=== PATIENT | male | born 1970 | race Caucasian/White ===

== ENCOUNTER 2018-01-19 06:56 | Emergency (ER) | payer BC ==
[2018-01-19] MEDS ORDERED: DEXAMETHASONE 10 MG/ML VIAL ONE (07:26)
[2018-01-19] MEDS ORDERED: DIAZEPAM 5 MG TABLET ONE (07:27)
[2018-01-19] MEDS ORDERED: HYDROCODONE/APAP 10/325 TAB ONE (07:27)
--- NOTE | 2018-01-19 07:55 | EDPHYS ---
Physician Documentation [facility] Name: Juan Luis Duvall Age: 47 yrs Sex: Male : 1970 Arrival Date: 01/19/2018 Time: 06:56 Bed 13 Private MD: ED Physician Edwin Cantrell HPI: 01/19 07:22 This 47 yrs old Male presents to ER via Ambulatory with complaints of Back jmm Spasms. 07:22 Onset: The symptoms/episode began/occurred acutely, last night. Associated signs and jmm symptoms: Pertinent negatives: chest pain, diarrhea, dysuria, shortness of breath. 07:22 Associated signs and symptoms: Pertinent negatives: abdominal pain, chest pain, jmm dysuria, fever, hematuria, incontinence, nausea, numbness, tingling, urinary retention. This is a 47 year old male with no chronic medical conditions that presents to the ED with right sided back pain beginning last night. Patient states he will occasionally have back spasms on the same side of his back. States he took Robaxin last night with no relief. . Historical: - Allergies: 07:15 No Known Allergies; jl7 - Home Meds: 07:15 None [Active]; jl7 - PMHx: 07:15 None; jl7 - PSHx: 07:15 None; jl7 - Immunization history:: Adult Immunizations up to date. - Social history:: Smoking status: Patient uses tobacco products, smokes one pack cigarettes per day. - Ebola Screening: : No symptoms or risks identified at this time. ROS: 07:22 Respiratory: Negative for shortness of breath, cough, wheezing, and pleuritic chest jmm pain, Abdomen/GI: Negative for abdominal pain, nausea, vomiting, diarrhea, and constipation. 07:22 Constitutional: Negative for fever. 07:22 Cardiovascular: Negative for chest pain. 07:22 Back: Positive for pain at rest, pain with movement. 07:22 Neuro: Negative for weakness. 07:22 All other systems are negative. Exam: 07:22 Head/Face: atraumatic. jmm 07:22 Constitutional: The patient appears in no acute distress, alert, awake. 07:22 Cardiovascular: Rate: normal. 07:22 Respiratory: the patient does not display signs of respiratory distress, Respirations: normal. 07:22 Abdomen/GI: Inspection: abdomen appears normal, Bowel sounds: normal, Palpation: abdomen is soft and non-tender, in all quadrants. 07:22 Back: muscle spasm noted ot the right side of the back at the mid lumbar region. 07:22 Musculoskeletal/extremity: ROM: intact in all extremities. 07:22 Musculoskeletal/extremity: extension of the great toes appreciated bilaterally. 07:22 Skin: Appearance: Color: normal in color. 07:22 Neuro: Orientation: is normal, Mentation: is normal, Memory: is normal. 07:22 Psych: Behavior/mood is pleasant, cooperative. Vital Signs: 07:15 BP 139 / 92; Pulse 69; Resp 16 S; Temp 98.3(O); Pulse Ox 95% on R/A; Weight 97.52 kg jl7 (R); Height 5 ft. 11 in. (180.34 cm) (R); Pain 10/10; 08:18 BP 144 / 98; Pulse 70; Resp 16; Pulse Ox 95% ; Pain 8/10; jl7 07:15 Body Mass Index 29.99 (97.52 kg, 180.34 cm) jl7 MDM: 07:21 Patient medically screened. [facility] 07:53 Data reviewed: vital signs, nurses notes. Counseling: I had a detailed discussion with sheryl the patient and/or guardian regarding: the historical points, exam findings, and any diagnostic results supporting the discharge/admit diagnosis, the presence of at least one elevated blood pressure reading (>120/80) during this emergency department visit, the need for outpatient follow up, to return to the emergency department if symptoms worsen or persist or if there are any questions or concerns that arise at home. Response to treatment: the patient's symptoms have mildly improved after treatment. Administered Medications: 07:35 Drug: Dryden 10 mg-325 mg 1 tabs Route: PO; jl7 08:20 Follow up: Response: No adverse reaction; Pain is decreased jl7 07:35 Drug: Valium 5 mg Route: PO; jl7 08:20 Follow up: Response: No adverse reaction; Pain is decreased jl7 07:36 Drug: Dexamethasone 10 mg Route: IM; Site: right deltoid; jl7 08:19 Follow up: Response: No adverse reaction; Pain is decreased 7 Disposition: 01/20 01:18 Co-signature as Attending Physician, Edwin Cantrell MD I agree with the assessment and tw4 plan of care. Disposition: 01/19/18 07:54 Discharged to Home. Impression: Muscle spasm of back. - Condition is Stable. - Discharge Instructions: Muscle Cramps and Spasms. - Prescriptions for Ibuprofen 800 mg Oral Tablet - take 1 tablet by ORAL route every 8 hours As needed take with food; 30 tablet. Ultram 50 mg Oral Tablet - take 1 tablet by ORAL route every 6 hours As needed; 12 tablet. orphenadrine citrate 100 mg Oral Tablet Sustained Release - take 1 tablet by ORAL route 2 times per day As needed; 20 tablet. - Medication Reconciliation Form, Thank You Letter, Antibiotic Education, Prescription Opioid Use form. - Follow up: Private Physician; When: 2 - 3 days; Reason: Continuance of care. Signatures: Dean Butt PA PA jmm Leal, Jahala, RN RN jl7 Edwin Cantrell MD MD tw4 Corrections: (The following items were deleted from the chart) 01/19 08:22 07:54 01/19/2018 07:54 Discharged to Home. Impression: Muscle spasm of back. Condition jl7 is Stable. Forms are Medication Reconciliation Form, Thank You Letter, Antibiotic Education, Prescription Opioid Use. Follow up: Private Physician; When: 2 - 3 days; Reason: Continuance of care. sheryl
--- NOTE | 2018-01-19 07:55 | ER ---
Nurse's Notes [facility] Name: Juan Luis Duvall Age: 47 yrs Sex: Male : 1970 Arrival Date: 01/19/2018 Time: 06:56 Bed 13 Private MD: Diagnosis: Muscle spasm of back Presentation: 01/19 07:12 Presenting complaint: Patient states: c/o right back spasms x 1 week, worse last night. jl7 Transition of care: patient was not received from another setting of care. Onset of symptoms was January 13, 2018. Risk Assessment: Do you want to hurt yourself or someone else? Patient reports no desire to harm self or others. Initial Sepsis Screen: Does the patient meet any 2 criteria? No. Patient's initial sepsis screen is negative. Does the patient have a suspected source of infection? No. Patient's initial sepsis screen is negative. Care prior to arrival: None. 07:12 Method Of Arrival: Ambulatory jl7 07:12 Acuity: JEREMY 4 jl7 Triage Assessment: 07:15 General: Appears in no apparent distress. uncomfortable, Behavior is calm, cooperative, jl7 appropriate for age. Pain: Complains of pain in left low back Pain radiates to left mid back Pain currently is 10 out of 10 on a pain scale. Quality of pain is described as "Spasms" Pain began 1 week ago Is continuous. EENT: No signs and/or symptoms were reported regarding the EENT system. Neuro: Level of Consciousness is awake, alert, obeys commands, Oriented to person, place, time, situation. Cardiovascular: Patient's skin is warm and dry. Respiratory: Airway is patent Respiratory effort is even, unlabored, Respiratory pattern is regular, symmetrical. GI: No signs and/or symptoms were reported involving the gastrointestinal system. : No signs and/or symptoms were reported regarding the genitourinary system. Derm: Skin is pink, warm \\T\\ dry. Musculoskeletal: Reports pain in right low back up to right mid back. Historical: - Allergies: 07:15 No Known Allergies; jl7 - Home Meds: 07:15 None [Active]; jl7 - PMHx: 07:15 None; jl7 - PSHx: 07:15 None; jl7 - Immunization history:: Adult Immunizations up to date. - Social history:: Smoking status: Patient uses tobacco products, smokes one pack cigarettes per day. - Ebola Screening: : No symptoms or risks identified at this time. Screenin:20 Abuse screen: Denies threats or abuse. Denies injuries from another. Nutritional jl7 screening: No deficits noted. Tuberculosis screening: No symptoms or risk factors identified. Fall Risk Gait- Impaired (20 pts.). Total Clifford Fall Scale indicates No Risk (0-24 pts). Assessment: 07:20 General: See triage assessment. jl7 Vital Signs: 07:15 BP 139 / 92; Pulse 69; Resp 16 S; Temp 98.3(O); Pulse Ox 95% on R/A; Weight 97.52 kg jl7 (R); Height 5 ft. 11 in. (180.34 cm) (R); Pain 10/10; 08:18 BP 144 / 98; Pulse 70; Resp 16; Pulse Ox 95% ; Pain 8/10; jl7 07:15 Body Mass Index 29.99 (97.52 kg, 180.34 cm) jl7 ED Course: 06:56 Patient arrived in ED. ds1 07:03 Hua Steele, RN is Primary Nurse. jl7 07:04 Dean Butt PA is PHCP. jmm 07:04 Edwin Cantrell MD is Attending Physician. [facility] 07:14 Triage completed. jl7 07:15 Arm band placed on right wrist. jl7 07:20 Patient has correct armband on for positive identification. Bed in low position. Call jl7 light in reach. Side rails up X 1. Pulse ox on. NIBP on. 08:21 No provider procedures requiring assistance completed. Patient did not have IV access jl7 during this emergency room visit. Administered Medications: 07:35 Drug: [place]oni 10 mg-325 mg 1 tabs Route: PO; jl7 08:20 Follow up: Response: No adverse reaction; Pain is decreased jl7 07:35 Drug: Valium 5 mg Route: PO; jl7 08:20 Follow up: Response: No adverse reaction; Pain is decreased jl7 07:36 Drug: Dexamethasone 10 mg Route: IM; Site: right deltoid; jl7 08:19 Follow up: Response: No adverse reaction; Pain is decreased jl7 Outcome: 07:54 Discharge ordered by . jmm 08:21 Discharged to home ambulatory. jl7 08:21 Condition: stable 08:21 Discharge instructions given to patient, family, Instructed on discharge instructions, follow up and referral plans. medication usage, Demonstrated understanding of instructions, follow-up care, medications, Prescriptions given X 3. 08:22 Patient left the ED. jl7 Signatures: Dean Butt PA PA jmm Sanford, Demi ds1 Hua Steele RN RN jl7 Corrections: (The following items were deleted from the chart) 08:20 00:36 Dexamethasone 10 mg IM in right deltoid jl7 jl7
[2018-01-19 08:28] VITALS: TEMP 98.3; O2SAT 95
[2018-01-19 08:29] VITALS: BP 144/98
== END 2018-01-19 08:22 | disposition home or self-care (01) ==
LOC: ER 06:56
DX: M62.830 Muscle spasm of back (principal); F17.210 Nicotine dependence, cigarettes, uncomplicated
CPT/HCPCS: 96372; 99283; J1100

== ENCOUNTER 2023-06-08 16:24 | Emergency (ER) | payer BC, OTHER ==
--- OUTSIDE RECORDS SUMMARY | 2023-06-08 16:40 | XMS REPORT | Clinical Summary ---
:1970 Author Organization [facility] MD [facility] Address [address] [place] [address] Care Team Providers Name Role Phone Dougie Varma MD Primary Care Provider [phone] Ana María Mills MD Unavailable Christiano Baez DDS Unavailable Ranjit ELIZABETH MD, Jamari Ulloa Unavailable Lazarus Martínez MD Unavailable Flavia Hawkins MD Unavailable Odin Call MD Unavailable Denver Coleman MD Unavailable Garrett Goldberg MD Unavailable Zohreh Dejesus MD Unavailable Allergies Active Allergy Reactions Criticality Noted Date Comments Chlorhexidine Gluconate Rash Low 06/12/2022 Medications Medication Sig Dispensed Refills Start End Status Date Date dasatinib Take 1 tablet (100 30 tablet 3 05/08/20 A ctive (SpryceL) 100 mg mg) by mouth 22 tabletIndications: daily. Acute lymphoblastic leukemia not having achieved remission sodium chloride Inject 10 mL (1 60 each 6 07/17/20 Active (NS) 0.9% flush syringe) into each 22 syringe 10 lumen of central mLIndications: venous catheter central line care daily as directed. valACYclovir Take 1 tablet (500 30 tablet 5 08/14/19 Active (VALTREX) 500 mg mg) by mouth 23 tabletIndications: daily. prevent viral infection atorvastatin Take 1 tablet (10 30 tablet 3 01/31/20 Active (Lipitor) 10 mg mg) by mouth 23 tabletIndications: daily. Acute lymphoblastic leukemia not having achieved remission, Hyperlipidemia, not otherwise specified potassium chloride Take 2 capsules 60 capsule 0 02/06/20 Active (MICRO-K) 10 mEq (20 mEq) by mouth 23 CR twice daily. capsuleIndications : Acute lymphoblastic leukemia not having achieved remission fenofibrate Take 1 tablet (160 30 tablet 3 02/10/20 Active (TRIGLIDE) 160 mg mg) by mouth 23 tabletIndications: daily. Acute lymphoid leukemia dexAMETHasone Take 1 tablet (4 7 tablet 0 05/12/20 Active (DECADRON) 4 mg mg) by mouth daily 23 tabletIndications: with breakfast. Acute lymphoblastic leukemia not having achieved remission dexAMETHasone Take 1 tablet (2 7 tablet 0 05/12/20 Active (DECADRON) 2 mg mg) by mouth daily 23 tabletIndications: with breakfast. Acute lymphoblastic leukemia not having achieved remission atorvastatin Take 1 tablet (10 90 tablet 3 03/28/20 Discontinued (Lipitor) 10 mg mg) by mouth 22 022 ( Reorder) tabletIndications: daily. Acute lymphoblastic leukemia not having achieved remission valACYclovir Take 1 tablet (500 90 tablet 5 03/28/20 Discontinued (VALTREX) 500 mg mg) by mouth 22 022 (Reorder) tabletIndications: daily. prevent viral infection fenofibrate Take 1 tablet (160 30 tablet 3 03/28/20 Discontinued (TRIGLIDE) 160 mg mg) by mouth 22 022 (Reorder) tabletIndications: daily. Acute lymphoid leukemia erythromycin Administer 0.5 3.5 g 1 05/26/20 Di scontinued (ROMYCIN) 0.5% inches to both (Stop Taking at ophthalmic eyes twice daily. 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 Through suspensionIndicati Thursday06/10/22 ons: Menard chromosome-positiv e acute lymphoblastic leukemia, Acute lymphoblastic leukemia not having achieved remission sodium chloride Inject 10 mL (1 60 each 6 06/06/20 Discontinued (NS) 0.9% flush syringe) into each 22 022 (Reorder) syringe 10 lumen of central mLIndications: venous catheter central line care daily as directed. levoFLOXacin Take 1 tablet (500 30 tablet 0 06/06/20 Discontinued (Levaquin) 500 mg mg) by mouth 22 022 (Reorder) tabletIndications: daily. prevention of bacterial infections minocycline Take 1 capsule 17 capsule 0 06/14/20 Ex pired (MINOCIN) 100 mg (100 mg) by mouth 22 022 capsuleIndications every 12 (twelve) : Menard hours for 17 chromosome-positiv doses. e acute lymphoblastic leukemia levETIRAcetam Take 1 tablet (750 40 tablet 0 07/16/20 Discontinued (KEPPRA) 750 mg mg) by mouth twice 22 023 (Other ) tabletIndications: daily. Menard chromosome-positiv e acute lymphoblastic leukemia minocycline Take 1 capsule 9 capsule 0 07/16/20 Exp ired (MINOCIN) 100 mg (100 mg) by mouth 22 023 capsuleIndications every 12 (twelve) : Severe sepsis, hours for 9 doses. not otherwise specified posaconazole Take 3 tablets 90 tablet 11 07/16/20 Di scontinued (NOXAFIL) 100 mg (300 mg) by mouth 22 023 (Other ) DR daily with dinner. tabletIndications: Severe sepsis, not otherwise specified atorvastatin Take 1 tablet (10 30 tablet 3 07/17/20 Discontinued (Lipitor) 10 mg mg) by mouth 22 023 ( Reorder) tabletIndications: daily. Acute lymphoblastic leukemia not having achieved remission fenofibrate Take 1 tablet (160 30 tablet 3 07/17/20 Discontinued (TRIGLIDE) 160 mg mg) by mouth 22 023 (Reorder) tabletIndications: daily. Acute lymphoid leukemia levoFLOXacin Take 1 tablet (500 30 tablet 1 07/17/20 Discontinued (Levaquin) 500 mg mg) by mouth 22 023 (Reorder) tabletIndications: daily. prevention of bacterial infections valACYclovir Take 1 tablet (500 30 tablet 5 07/17/20 Discontinued (VALTREX) 500 mg mg) by mouth 023 (Reorder) tabletIndications: daily. prevent viral infection eltrombopag Take 1 tablet (50 60 tablet 0 07/30/19 Discontinued (Promacta) 50 mg mg) by mouth twice 023 (Other ) tabletIndications: daily. Administer Acute on an empty lymphoblastic stomach, 1 hour leukemia before or 2 hours after a meal. potassium chloride Take 1 tablet (20 10 tablet 0 08/11/19 Discontinued (Klor-Con M20) 20 mEq) by mouth 023 (Other ) mEq twice daily. tabletIndications: Acute lymphoblastic leukemia atorvastatin Take 1 tablet (10 30 tablet 3 08/14/19 Discontinued (Lipitor) 10 mg mg) by mouth ( Stop Taking at tabletIndications: daily. D ischarge) Acute lymphoblastic leukemia not having achieved remission levoFLOXacin Take 1 tablet (500 30 tablet 3 08/14/19 Discontinued (Levaquin) 500 mg mg) by mouth 023 (Other ) tabletIndications: daily. prevention of bacterial infections fenofibrate Take 1 tablet (160 30 tablet 3 08/14/19 Discontinued (TRIGLIDE) 160 mg mg) by mouth 023 (Reorder) tabletIndications: daily. Acute lymphoid leukemia ipratropium Apply 1 spray to 30 mL 0 10/06/19 05/032 D iscontinued (ATROVENT) 0.03% each nare twice (Stop Taking at nasal daily. As needed Dis charge) sprayIndications: for nasal Nasal congestion congestion ciprofloxacin HCl Administer 1 drop 5 mL 0 10/06/19 05/0 3/2 Discontinued (Ciloxan) 0.3% to both eyes every (Stop Taking at ophthalmic 2 (two) hours. Disc harge) solutionIndication s: Conjunctivitis HYDROcodone-homatr Take 5 mL by mouth 120 mL 0 10/06/19 Discontinued opine (Hydromet) 5 every 8 (eight) 023 (Other ) mg-1.5 mg/5 mL hours as needed syrupIndications: for cough. Acute bronchitis due to rhinovirus benzonatate Take 1 capsule 32 capsule 0 10/09/19 Di scontinued (Tessalon Perles) (100 mg) by mouth 23 023 (Stop Taking at 100 mg every 8 (eight) Disc harge) capsuleIndications hours as needed : Acute for cough. lymphoblastic leukemia predniSONE Take 6 tablets (60 39 tablet 0 11/21/19 Discontinued (DELTASONE) 10 mg mg) by mouth daily 23 023 (Reorder) tabletIndications: for 3 days, THEN 4 Blurring of visual tablets (40 mg) image, Neoplasm of daily for 3 days, optic nerve THEN 2 tablets (20 mg) daily for 3 days, THEN 1 tablet (10 mg) daily for 3 days. famotidine Take 1 tablet (20 30 tablet 0 11/20/19 D iscontinued (Pepcid) 20 mg mg) by mouth 23 023 (R eorder) tabletIndications: daily. Separate Prevention of from dasatinib by steroid-induced at least 12 hours. gastritis predniSONE Take 6 tablets (60 39 tablet 0 11/21/19 (DELTASONE) 10 mg mg) by mouth daily 23 023 tabletIndications: for 3 days, THEN 4 Blurring of visual tablets (40 mg) image, Neoplasm of daily for 3 days, optic nerve THEN 2 tablets (20 mg) daily for 3 days, THEN 1 tablet (10 mg) daily for 3 days. famotidine Take 1 tablet (20 30 tablet 0 11/20/19 D iscontinued (Pepcid) 20 mg mg) by mouth 23 023 (S top Taking at tabletIndications: daily. Separate Discharge) Prevention of from dasatinib by steroid-induced at least 12 hours. gastritis gabapentin Take 1 capsule 30 capsule 0 11/29/19 Dis continued (Neurontin) 300 mg (300 mg) by mouth 23 023 (Reorder) capsuleIndications at bedtime. : Acute lymphoblastic leukemia not having achieved remission tamsulosin Take 1 capsule 0 12/17/19 Disc ontinued (FLOMAX) 0.4 mg 24 (0.4 mg) by mouth 23 023 (Reorder) hr capsule daily. levoFLOXacin Take 1 tablet (500 30 tablet 2 12/27/19 Discontinued (LEVAQUIN) 500 mg mg) by mouth 23 023 (Other ) tabletIndications: daily. Menard chromosome-positiv e acute lymphoblastic leukemia voriconazole Take 1 tablet (200 60 tablet 2 12/27/19 Discontinued (VFEND) 200 mg mg) by mouth twice 23 023 (Stop Taking at tabletIndications: daily. D ischarge) Menard chromosome-positiv e acute lymphoblastic leukemia fluconazole Take 2 tablets 60 tablet 0 12/30/19 Dis continued (DIFLUCAN) 200 mg (400 mg) by mouth 23 023 (Stop Taking at tabletIndications: daily. D ischarge) Menard chromosome-positiv e acute lymphoblastic leukemia prednisoLONE Administer 2 drops 5 mL 0 12/30/19 acetate (PRED to both eyes 4 023 FORTE) 1% (four) times a day ophthalmic for 2 days. To suspensionIndicati prevent ons: Menard conjunctivitis chromosome-positiv from chemotherapy. e acute Continue for 2 lymphoblastic days after leukemia discharge from the hospital, then stop. Take hospital bottle home. doxycycline Take 1 capsule 14 capsule 0 01/01/20 Di scontinued (VIBRAMYCIN) 100 (100 mg) by mouth 23 023 MG twice daily. capsuleIndications : Acute lymphoblastic leukemia not having achieved remission doxycycline Take 1 capsule 14 capsule 0 01/01/20 Di scontinued (VIBRAMYCIN) 100 (100 mg) by mouth 23 023 (Stop Taking at MG twice daily. Dischar ge) capsuleIndications : Acute lymphoblastic leukemia not having achieved remission gabapentin Take 1 capsule 30 capsule 0 01/03/20 Dis continued (Neurontin) 300 mg (300 mg) by mouth 23 023 (Other ) capsuleIndications at bedtime. : Acute lymphoblastic leukemia not having achieved remission tamsulosin Take 1 capsule 30 capsule 11 01/09/20 Dis continued (FLOMAX) 0.4 mg 24 (0.4 mg) by mouth 23 023 (Other ) hr daily. capsuleIndications : benign prostatic hyperplasia with lower urinary tract sx posaconazole Take 3 tablets 90 tablet 5 01/10/20 Di scontinued (NOXAFIL) 100 mg (300 mg) by mouth 23 023 (Other ) DR daily. tabletIndications: prevention of invasive pulmonary aspergillosis rosuvastatin Take 1 tablet (5 30 tablet 3 01/09/20 Discontinued (CRESTOR) 5 mg mg) by mouth at 23 023 (Other ) tabletIndications: bedtime. myocardial infarction prevention dextran Apply 1 drop to 15 mL 1 01/14/20 Disc ontinued 70-hypromellose eye every hour 23 023 0.1-0.3 % while awake. dropIndications: dry eye erythromycin Administer half an 3.5 g 0 01/14/20 Discontinued (ROMYCIN) 0.5% inch to the right 23 023 (Other ) ophthalmic eye 3 (three) ointmentIndication times a day. s: Preseptal cellulitis, Acute lymphoblastic leukemia not having achieved remission levoFLOXacin Take 1 tablet (750 7 tablet 0 01/14/20 (Levaquin) 750 mg mg) by mouth daily 23 023 tabletIndications: for 7 days. Then Preseptal resume 500mg dose Cellulitis minocycline Take 1 capsule 14 capsule 0 01/14/20 Ex pired (MINOCIN) 100 mg (100 mg) by mouth 23 023 capsuleIndications twice daily for 7 : Preseptal days. Cellulitis gatifloxacin Administer 1 drop 2.5 mL 0 01/14/20 Discontinued (Zymaxid) 0.5% to the right eye 23 023 (Other ) ophthalmic every 6 (six) solutionIndication hours as directed. s: bacterial corneal ulcer infection gabapentin Take 1 capsule 30 capsule 3 01/18/20 Dis continued (NEURONTIN) 100 mg (100 mg) by mouth 23 023 (Reorder) capsuleIndications every morning. : neuropathic pain predniSONE Take 6 tablets (60 105 tablet 0 01/17/20 (DELTASONE) 10 mg mg) by mouth daily 23 023 tabletIndications: for 5 days, THEN 5 Blurring of visual tablets (50 mg) image daily for 5 days, THEN 4 tablets (40 mg) daily for 5 days, THEN 3 tablets (30 mg) daily for 5 days, THEN 2 tablets (20 mg) daily for 5 days, THEN 1 tablet (10 mg) daily for 5 days. famotidine Take 1 tablet (20 30 tablet 0 01/17/20 D iscontinued (Pepcid) 20 mg mg) by mouth 23 023 (O ther ) tabletIndications: daily. prevention of stress ulcer sulfamethoxazole-t Take 1 tablet by 15 tablet 0 01/17/20 08/0 /2 Discontinued rimethoprim mouth 3 (three) 23 023 (O ther ) (Bactrim DS) 800 times a week mg-160 mg per Thursday, Thursday tabletIndications: and Thursday. Pneumocystis jirovecii pneumonia prevention gabapentin Take 1 capsule 30 capsule 3 02/06/20 Dis continued (NEURONTIN) 100 mg (100 mg) by mouth 23 023 (Other ) capsuleIndications every morning. : neuropathic pain doxazosin Take 1 tablet (1 0 02/17/20 Dis continued (CARDURA) 1 mg mg) by mouth at 23 023 (Not tablet bedtime. Applicable ) tamsulosin Take 2 capsules 0 Dis continued (FLOMAX) 0.4 mg 24 (0.8 mg) by mouth 023 (Other ) hr capsule at bedtime. Active Problems Patient Care Coordination Note Formatting of this note might be differe nt from the original. 05/07 Diagnostic LP only - need flow/anthony l/cyto/glucose/protein and opening/closing pressures. 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 Blurring of visual image 05/01/2022 Papilledema of left eye 05/01/2022 Sinusitis 05/27/2020 Perirectal abscess 05/27/2020 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 Encounter for antineoplastic chemotherapy 05/04/2020 Severe protein-calorie malnutrition 04/11/2020 Bleeding gums 04/08/2020 Hematochezia 04/08/2020 COVID-19 04/07/2020 Acute leukemia 04/06/2020 Other secondary thrombocytopenia Electrolyte and fluid disorders not elsewhere classified Diarrhea Hemianopia Encounters Date Type Department Care Team Description 05/27/2023 Follow-Up Leukemia Center Windy Bravo, Acute lymphoblastic 2:[address] MD Dougie leukemia HAND ROLLER Main Bldg, 8th [place] [address] 05/27/2023 Hospital Encounter Diagnostic Laboratory Magalis Morton, Acute lymphoblastic leukemia 1:00 PM Center [place] Discharge Disposition: Home HAND ROLLER - [address] 05/27/2023 Main Bldg, Elevator [place] 11:59 [place] [address] HAND ROLLER 05/27/2023 Orders Only Leukemia Center Magalis Morton, Acute lymphoblastic [address] [place] leukemia (Primary Main Bldg, 8th Floor Dx) [place] [address] 05/27/2023 Travel 05/21/2023 Ancillary Procedure Radiology Outpatient Magalis Morton, Acute lymphoblastic 8:15 PM [place] ANA MARIA leukemia not having CDT [address] [place] [address] 05/18/2023 Orders Only Leukemia Center Magalis Morton, Acute lymphoblastic [address] [place] leukemia (Primary Main Bldg, 8th Floor Dx) [place] [address] 05/12/2023 Orders Only Leukemia Center Magalis Morton, Acute lymphoblastic [address] [place] leukemia not having Main Bldg, 8th Floor achieved remission Elevator A or B (Primary Dx) [place] [address] 05/07/2023 Procedure visit Leukemia Center Windy Bravo, Acute lymphoblastic 1:[address] MD Dougie leukemia not having CDT Main Bldg, 8th Floor Elliott Fuller achieved remission Elevator A or B C, PA (Primary Dx) [place] [address] 05/07/2023 Consult Brain and Spine Zohreh Dejesus, Acute ly mphoblastic 9:50 AM Center - Neuro leukemia CDT Oncology [address] Main Bldg, 7th [place] [address] 05/07/2023 Orders Only Neuroradiology Fernanda Ku, [address] [place] [address] 05/07/2023 Orders Only Leukemia Center Magalis Morton, [address] [place] Main Bldg, 8th [place] [address] 05/07/2023 Travel 05/07/2023 Orders Only Leukemia Center - Magalis Morton, Acute lymphoblastic [facility] [place] leukemia not having [address] achieved remission Main Bldg, 8th Floor (Primary Dx) [place] [address] 05/06/2023 Hospital Encounter Leukemia Center - Magalis Morton, Acute lymphoblastic leukemia 10:08 AM [facility] Discharge Disposition: Home CDT - [address] 05/06/2023 Main Bldg, 8th Floor 11:59 [place] [address] 05/06/2023 Follow-Up Leukemia Center Windy Lyons, Acute lymphoblastic 9:[address] MD Dougie leukemia CDT Main Bldg, 8th [place] [address] 05/06/2023 Hospital Encounter Diagnostic Laboratory Magalis Morton, Acute lymphoblastic leukemia 7:15 AM [place] Discharge Disposition: Home CDT - [address] 05/06/2023 Main Bldg, Elevator [place] 9:53 [place] [address] CDT 05/06/2023 Orders Only Leukemia Center Shona Jauregui [address] C, CLOTH [employer]ANGE BACK TENDER Main Bldg, 8th [place] [address] 05/06/2023 Orders Only Leukemia Center Magalis Morton, Acute lymphoblastic leukemia (Primary Dx); [address] [place] Acute lymphoblastic leukemia not having achieved remission Main Bldg, 8th [place] [address] 05/06/2023 Travel 04/29/2023 Orders Only Leukemia Center Magalis Morton, Acute lymphoblastic [address] [place] leukemia (Primary Main Bldg, 8th Floor Dx) [place] [address] 04/23/2023 Ancillary Procedure Radiology Outpatient Magalis Morton, Acute lymphoblastic 9:15 AM Center [place] leukemia CDT [address] [place] [address] 04/22/2023 Orders Only Genitourinary Cancer Alex Piña Noctur nal polyuria Center [employer] T[employer]ER (Primary Dx) [address] [facility], 7th [place] [address] 04/15/2023 Consult Genitourinary Cancer Jamari Church urinary tract symptoms (Primary Dx); 1:00 PM [place] MD CLARA Acute lymphoblastic leukemia not having achieved remission; CDT [address] Malignant meningitis; [facility], 7th Nocturia; Floor Urgent [place] [address] 04/15/2023 Travel 03/11/2023 Consult Genitourinary Cancer Lazarus Martínez MD Lower urinary tract symptoms (Primary Dx); 9:00 AM [place] Acute lymphoblastic leukemia not having achieved remission; CDT [address] Male erectile dysfunction, n ot otherwise specified [facility], 7th [place] [address] 03/11/2023 Travel 03/04/2023 Hospital Encounter Vascular Access and Windy Lyons Acute lymphoblastic leukemia 10:37 AM Procedures Center MD Dougie Discharge Disposition: Home CDT - [address] Fabricio Bliss 03/04/2023 Main Bldg, 8th Floor L, RN 11:59 [place] [address] 03/04/2023 Travel 02/25/2023 Follow-Up Leukemia Center Windy Lyons, Acute lymphoblastic 11:[address] MD Dougie leukemia not having CDT Main Bldg, 8th Floor achieved [place] [address] 02/25/2023 Hospital Encounter Diagnostic Laboratory Magalis Morton, Acute lymphoblastic leukemia not having achieved remission 9:38 AM Center [place] Discharge Disposition: Home CDT - [address] 02/25/2023 Main Bldg, Elevator A 11:59 [place] [address] CDT 02/25/2023 Hospital Encounter Vascular Access and Windy Lyons , Encounter for adjustment and management of vascular access device [Z45.2 (ICD-10-CM)] (Primary Dx) 8:36 AM Procedures Center MD Dougie Discharge Disposition: Home CDT - [address] Ayala, 02/25/2023 Main Bldg, 8th Floor Oleg Amato RN 9:37 AM [place] [address] 02/25/2023 Orders Only Leukemia Center Magalis Morton, Acute lymphoblastic [address] [place] leukemia (Primary Main Bldg, 8th Floor Dx) [place] [address] 02/25/2023 Travel 02/19/2023 Hospital Encounter Vascular Access and Windy Lyons , Encounter for adjustment and management of vascular access device [Z45.2 (ICD-10-CM)] (Primary Dx) 8:19 AM Procedures Center MD Dougie Discharge Disposition: Home CDT - [address] JessieJose Manuel pradosaraho 02/19/2023 Main Bldg, 8th Floor Juan Correa RN 11:59 PM Elevator C CDT [place] [id number] 02/19/2023 Travel 02/12/2023 Hospital Encounter Vascular Access and Windy Lyons , Discharge 8:40 AM Procedures Center MD Douige Disposition: Home CDT - [address] Christiano, 02/12/2023 Main Bldg, 8th Floor Courtney Sullivan RN 11:59 PM Elevator C CDT [place] [id number] 02/12/2023 Travel 02/09/2023 Orders Only Bone Marrow PraveenMagalis, Acute lymph oid [facility] [place] leukemia [address] Main Bldg, 11th [place] [address] 02/05/2023 Telemedicine Leukemia Center - Magalis Morton, Acute lymphoblastic 10:45 AM [facility] [place] leukemia not having CDT [address] achieved remission Main Bldg, 8th [place] [address] 02/05/2023 Hospital Encounter Leukemia Center - Magalis Morton, Acute lymphoblastic leukemia not having achieved remission 9:07 AM [facility] Discharge Disposition: Home CDT - [address] 02/05/2023 Main Bldg, 8th Floor 11:59 [place] [address] 02/05/2023 Hospital Encounter Vascular Access and Windy Lyons , Encounter for adjustment and management of vascular access device (Primary Dx) 8:00 AM Procedures Center MD Dougie Discharge Disposition: Home CDT - [address] Uvaldo Rutherford, VALENTINA 02/05/2023 Main Bldg, 8th Floor Letargo Tuble, 9:06 AM Elevator C [place] [address] 02/05/2023 Orders Only Leukemia Center Magalis Morton, Blurring of visual [address] [place] image Main Bldg, 8th [place] [address] 02/05/2023 Refill Leukemia Center PraveenMagalis, Acute lymphoid leukemia; [address] [place] Acute lymphoblastic leukemia not having achieved remission Main Bldg, 8th [place] [address] 02/05/2023 Travel 02/04/2023 Orders Only Leukemia Center Magalis Morton, Acute lymphoblastic [address] [place] leukemia not having Main Bldg, 8th Floor achieved remission Elevator A or B (Primary Dx) [place] [address] 02/02/2023 Documentation Leukemia Center [place], [address] Lonnie Villarreal RN Main Bldg, 8th [place] [address] 01/30/2023 Orders Only Leukemia Center Magalis Morton, 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); [address] [place] Hyperlipidemia, not otherwis e specified Main Bldg, 8th [place] [address] 01/29/2023 Hospital Encounter Vascular Access and Windy Lyons , Encounter for adjustment and management of vascular access device [Z45.2 (ICD-10-CM)] (Primary Dx) 1:38 PM Procedures Center MD Dougie Discharge Disposition: Home CDT - [address] Winter Guardado, 01/29/2023 Main Bldg, 8th Floor RN 11:59 PM Elevator [place] [address] PAO Rey [phone] 01/29/2023 Orders Only Leukemia Center Magalis Morton, Acute lymphoblastic [address] [place] leukemia not having Main Bldg, 8th Floor achieved remission Elevator A or B (Primary Dx) [place] [address] 01/29/2023 Travel 01/28/2023 Orders Only Leukemia Center Magalis Morton, Acute lymphoblastic [address] [place] leukemia (Primary Main Bldg, 8th Floor Dx) [place] [address] 01/22/2023 Hospital Encounter Diagnostic Laboratory Magalis Morton, Acute lymphoblastic leukemia not having achieved remission 3:40 PM Center [place] Discharge Disposition: Home CDT - [address] 01/22/2023 Main Bldg, Elevator [place] 11:59 [place] [address] CDT 01/22/2023 Hospital Encounter Main Flex Center Al-Zubidi, Other disorder of bilateral optic nerves (Primary Dx); 1:[address] MD Lillie Blurring of visual image; CDT - Main Bldg, 7th Floor Visual acuity, no light perc eption; 01/22/2023 Elevator C Acute lymphoid leukemia 3:39 [place] [address] Discharge Disposition: Home CDT [phone] 01/22/2023 Travel 01/21/2023 Hospital Encounter Vascular Access and Windy Lyons , Encounter for adjustment and management of vascular access device [Z45.2 (ICD-10-CM)] (Primary Dx) 12:20 PM Procedures Center MD Dougie Discharge Disposition: Home CDT - [address] Brittany, 01/21/2023 Main Bldg, 8th Floor Neymar Rey RN 11:59 PM Elevator C CDT [place] [id number] 01/21/2023 Follow-Up Leukemia Center Windy Lyons, Acute lymphoblastic 11:[address] MD Dougie leukemia not having CDT Main Bldg, 8th Floor achieved remission Elevator A or B [place] [phone] 01/21/2023 Office Visit Leukemia Center - Joni, Acute lymp hoblastic 10:45 AM West/Fast Track Mely, [employer] TENDER leukemia not having CDT [address] Mattie Tong achieved remission Main Bldg, 8th Floor D, [employer] [place] [address] 01/21/2023 Hospital Encounter Leukemia Center - Magalis Morton, Acute lymphoblastic leukemia 9:35 AM West [place] Discharge Disposition: Home CDT - [address] 01/21/2023 Main Bldg, 8th Floor 12:19 [place] [address] 01/21/2023 Orders Only Leukemia Center Magalis Morton, 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); [address] PA Acute lymphoblastic leukemia Main Bldg, 8th [place] [address] 01/21/2023 Travel 01/16/2023 Orders Only Leukemia Center Joni Acute lymphoblastic [address] Mely, CLOTH [employer]LE[employer] BACK TENDER leukemia not having Main Bldg, 8th Floor achieved remission Elevator A or B (Primary Dx) [place] [phone] 01/14/2023 Follow-Up Leukemia Center Windy Eloy, Acute lymphoblastic 10:45 AM [address] Constantino MD leukemia CDT Main Bldg, 8th [place] [address] 01/14/2023 Hospital Encounter MAIN 19NW Clarence Leivaian, Blurring of visual image (Pr imary Dx); 9:59 AM Cristine Carreon MD Acute leukemia; CDT - Junction Windy Lyons, Neoplasm of optic nerve 01/17/2023 [place] [address] MD Dougie Discharge Disposition: Home 12:34 PM [phone] Gilmar Gonzalez, CDT 01/14/2023 Ophth Exam [facility] Patricia Martines, - Ophthalmology MD [address] Main Bldg, 9th [place] [address] 01/14/2023 Travel 01/13/2023 Orders Only Leukemia Center Mine Kovacs, Acute lymphoblastic [address] CLOTH [employer]LE[employer] BACK TENDER leukemia (Primary Main Bldg, 8th Floor Dx) [place] [address] 01/12/2023 Orders Only Leukemia Center Gilmar Gonzalez, Acute lymphoblastic [address] leukemia not having Main Bldg, 8th Floor achieved remission Elevator A or B (Primary Dx) [place] [address] 01/12/2023 Orders Only Head and Neck Center Shaw Beard, Blurr ing of visual - Ophthalmology OD image (Primary Dx) [address] Main Bldg, 9th [place] [address] 01/10/2023 Ophth Exam [facility] Shaw Beard, - Ophthalmology OD [address] Main Bldg, 9th [place] [address] 01/10/2023 Travel 01/08/2023 Orders Only [facility] Shaw Beard, Blurr ing of visual - Ophthalmology OD image (Primary Dx) [address] Main Bldg, 9th [place] [address] 01/07/2023 Orders Only [facility] Shaw Beard Blurr ing of visual - Ophthalmology OD image (Primary Dx) [address] Main Bldg, 9th [place] [address] 01/07/2023 Ophth Exam [facility] Shaw Beard, - Ophthalmology OD [address] Main Bldg, 9th [place] [address] 01/06/2023 Orders Only [facility] Ne[facility] Center Shaw Beard Blurr ing of visual - Ophthalmology OD image (Primary Dx) [address] Main Bldg, 9th [place] [address] 01/06/2023 Orders Only Head and Neck Center Rolando Warren of visual - Ophthalmology ANA MARIA Reeder image (Primary Dx) [address] Main Bldg, 9th [place] [address] 01/06/2023 Ophth Exam [facility] Shaw Beard, - Ophthalmology OD [address] Main Bldg, 9th [place] [address] 01/05/2023 Telephone Blood Donor Center at [facility] Chyna Sullivan RN [address] [place] [address] 01/05/2023 Documentation [facility] Ne[facility] Alex, - Ophthalmology Emma Villarreal RN [address] Main Bldg, 9th [place] [address] 01/05/2023 Travel 01/04/2023 Hospital Encounter MAIN 19SW Tiffany Quintero Preseptal cellulitis (Primar y Dx); 11:41 PM Cristine Sullivan MD Pain in eye; CDT - Junction Windy Lyons, Neutropenia; 01/13/2023 [place] [address] MD Dougie Acute leukemia; 5:31 PM [phone] Gilmar Gonzalez, Corneal abr asion <Right side; Initial>; CDT MD Other disorder of bilateral optic nerves; Menard ch romosome-positive acute lymphoblastic leukemia; Acute sinusitis , not otherwise specified; Blurring of vis ual image; Acute lymphobla stic leukemia; Acute lymphobla stic leukemia not having achieved remission Discharge Dispo sition: Home 01/04/2023 Travel 01/02/2023 Orders Only Leukemia Center Magalis Morton, Acute lymphoblastic [address] PA leukemia not having Main Bldg, 8th Floor achieved [place] [address] 12/31/2022 Clinical Support Leukemia Center Stu, 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); 3:[address] NII Benedict Acute lymphoblastic leukemia not having achieved remission CDT Main Bldg, 8th Floor Hailee, Elevator A [place] [address] 12/31/2022 Procedure visit Leukemia Center Windy Lyons, Acute lymphoblastic 2:[address] MD Dougie leukemia not having CDT Main Bldg, 8th Floor Abdias Epperson, achieved remission Elevator A or B CL[employer] BACK TENDER (Primary Dx) [place] [phone] 12/31/2022 Hospital Encounter Ambulatory Treatment Everton Jackson, Krissy cute lymphoblastic leukemia not having achieved remission; 12:18 PM Center - Main CLOTH [employer] BACK TENDER Menard c hromosome-positive acute lymphoblastic leukemia CDT - Building Discharge Disposition: Home 12/31/[address] 11:59 PM Main Bldg, 2nd [place] [address] 12/31/2022 Office Visit Leukemia Center - Everton Jackson, Acute lymp hoblastic 10:15 AM West/Fast Track CL[employer] TENDER leukemia not having CDT [address] Stu, achieved remission Main Bldg, 8th Floor [place] [address] 12/31/2022 Hospital Encounter Leukemia Center - Angy, Everton, Acut e lymphoblastic leukemia not having achieved remission 9:00 AM West CL[employer] TENDER Discharge Disposition: Home CDT - [address] 12/31/2022 Main Bldg, 8th Floor 12:17 [place] [address] 12/31/2022 Orders Only Leukemia Center - Stu, Acute lymp hoblastic West/Fast Track Marichuy, CLOTH [employer]LE[employer] R[employer] BACK TENDER leukemia not having [address] achieved remission Main Bldg, 8th Floor (Primary Dx) [place] [address] 12/31/2022 Orders Only Leukemia Center - Stu, Acute lymp hoblastic West/Fast Track Marichuy, CLOTH [employer] TENDER leukemia not having [address] achieved remission Main Bldg, 8th Floor (Primary Dx) [place] [address] 12/31/2022 Travel 12/31/2022 Orders Only Leukemia Center Abelardo Chopra, Acute lymphoblastic [address] CLOTH [employer] TENDER leukemia not having Main Bldg, 8th Floor achieved remission Elevator A or B (Primary Dx) [place] [address] 12/31/2022 Orders Only Leukemia Center Jazz Estes, [address] [place] Main Bldg, 8th [place] [address] 12/29/2022 Orders Only Leukemia Center Kathie Ramon, [address] CLOTH [employer]ANGE BACK TENDER Main Bldg, 8th [place] [address] 12/26/2022 Orders Only MAIN 20SE Traci Desai MD 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); [address] Acute lymphobl astic leukemia not having [place] [address] 12/26/2022 Orders Only Leukemia Center Everton Jackson, Acute lymphoblastic [address] CLOTH BLE[employer] RANGE BACK TENDER leukemia not having Main Bldg, 8th Floor achieved remission Elevator A or B (Primary Dx) [place] [address] 12/23/2022 Travel 12/23/2022 Orders Only MAIN 20SE Traci Desai MD [address] [place] [address] 12/22/2022 Hospital Encounter MAIN 16STiffany Squires Encounter for adjustment and management of vascular access device (Primary Dx); 10:06 PM Cristine Sullivan MD Visual field defect of right eye; CDT - Junction Windy Eloy, Menard chromosome-posi tive acute lymphoblastic leukemia; 12/29/2022 [place] [address] MD Dougie Neoplasm of optic nerve; 4:36 PM [phone] Traci Desai MD Acute lymph oblastic leukemia not having achieved remission CDT Discharge Dispo sition: Home 12/22/2022 Hospital Encounter Main Flex Center [facility], Other disorder of bilateral optic nerves (Primary Dx); 1:02 PM Cristine Moreira MD Visual acuity, no light perc eption; CDT - Main Bldg, 7th Floor Acute lymphoblastic leukemia ; 12/22/2022 Elevator C Other localized visual field defect of right eye; 10:05 [place] [address] [address] pupil defe [address] CDT [phone] Discharge Dispo sition: Home 12/22/2022 Travel 12/17/2022 Orders Only Leukemia Center Stephanie Hilton [address] Main Bldg, 8th [place] [address] 12/12/2022 Telemedicine Leukemia Center Windy Lyons, Acute lymphoid 11:45 AM Cristine Constantino MD leukemia CDT Main Bldg, 8th [place] [address] 12/12/2022 Orders Only Leukemia Center Magalis Morton, [address] PA Main Bldg, 8th [place] [address] 12/10/2022 Office Visit Leukemia Center - Magalis Morton, Acute lymphoid 10:30 AM West/Fast Track PA leukemia CDT [address] Sailaja Hernandez, Main Bldg, 8th [place] [address] 12/10/2022 Hospital Encounter Leukemia Center - Magalis Morton, Acute lymphoid leukemia 8:30 AM Young RODGERS Discharge Disposition: Home CDT - [address] 12/10/2022 Main Bldg, 8th Floor 11:59 [place] [address] 12/10/2022 Travel 12/09/2022 Orders Only Bone Marrow Magalis Morton, Acute lymph oid leukemia (Primary Dx); [facility] Acute lymphoblastic leukemia [address] Main Bldg, 11th [place] [address] 12/08/2022 Ancillary Procedure Radiology Outpatient Magalis Morton, Acute lymphoid 2:15 PM [facility] leukemia CDT [address] [place] [id number] 12/08/2022 Travel 12/03/2022 Procedure visit Leukemia Center Windy Lyons, Acute lymphoblastic 2:00 PM [address] [facility] MD Dougie leukemia not having CDT Main Bldg, 8th Floor Nava Valladares, achieved remission Elevator A or B CLOTH BLEACHING RANGE BACK TENDER (Primary [place]x) [place] [address] 12/03/2022 Office Visit Leukemia Center - Magalis Morton, Acute lymphoid 10:30 AM West/Fast Track PA leukemia CDT [address] Mirta Clark Main Bldg, 8th Floor N, [place] [address] 12/03/2022 Hospital Encounter Leukemia Center - Magalis Morton, Acute lymphoid leukemia 9:30 AM Young RODGERS Discharge Disposition: Home CDT - [address] 12/03/2022 Main Bldg, 8th Floor 11:59 [place] [address] 12/03/2022 Travel 12/01/2022 Hospital Encounter Main Flex Center Titi, Blurring of visual image (Pr imary Dx); 1:06 PM [address] Lalo Moreira MD Acute lymphoblastic leukemia ; CDT - Main Bldg, 7th Floor Other disorder of bilateral optic nerves; 12/01/2022 Elevator C Visual acuity, no light perc [place]ption 11:59 [place] [address] Discharge Disposition: Home CDT [phone] 12/01/2022 Travel 11/28/2022 Orders Only Leukemia Center Magalis Morton, Acute lymphoblastic [address] ANA MARIA leukemia not having Main Bldg, 8th Floor achieved remission Elevator A or B (Primary Dx) [place] [phone] 11/26/2022 Procedure visit Leukemia Center [facility] Lyons, 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); 3:30 PM [address] Constantino MD Acute lymphoid leukemia CDT Main Bldg, 8th Floor Jazz Estes, [place] [address] 11/26/2022 Follow-Up Leukemia Center [facility] Eloy, Acute lymphoid 11:45 AM [address] BlLeahy MD leukemia CDT Main Bldg, 8th [place] [address] 11/26/2022 Hospital Encounter Leukemia Center - Marco A Kingsley Acut e lymphoid leukemia 10:00 AM [facility] Discharge Disposition: Home CDT - [address] 11/26/2022 Main Bldg, 8th Floor 11:59 PM Elevator B CDT [place] [id number] 11/26/2022 Orders Only Leukemia Center [facility] Lyons, Acute lymphoblastic [address] Bl[address]eah[address] MD leukemia not having Main Bldg, 8th Floor achieved remission Elevator A or B (Primary Dx) [place] [id number] 11/26/2022 Orders Only Leukemia Center Samson, [address] Emma Dalton [facility] Main Bldg, 8th [place] [address] 11/26/2022 Orders Only Leukemia Center Salvatora, Acute lymphoid [address] ANA MARIA Gerber leukemia (Primary Main Bldg, 8th Floor Dx) [place] [address] 11/26/2022 Orders Only Leukemia Center Magalis Morton, Acute lymphoid [address] ANA MARIA leukemia (Primary Main Bldg, 8th Floor Dx) [place] [address] 11/26/2022 Travel 11/26/2022 Orders Only Leukemia Center - Abdias Epperson West/Fast Track CLOTH BLEACHING RANGE BACK TENDER [address] Main Bldg, 8th [place] [address] 11/19/2022 Orders Only Leukemia Center August [address] MD Jay Main Bldg, 8th [place] [address] 11/19/2022 Orders Only Leukemia Center Sher James, Acute lymphoblastic [address] leukemia not having Main Bldg, 8th Floor achieved remission Elevator A or B (Primary Dx) [place] [address] 11/18/2022 Orders Only Head and Neck Center Shaw Beard, - Ophthalmology OD [address] Main Bldg, 9th [place] [address] 11/18/2022 Orders Only MAIN 16SW Marco A Kingsley, Acute lymphoid [address] CLOTH BLEACHING RANGE BACK TENDER leukemia (Prim kimberley [place]unction [place]) [place] [address] 11/18/2022 Orders Only Leukemia Center Sher James [address] Main Bldg, 8th [place] [address] 11/18/2022 Orders Only Leukemia Center Stephanie Hilton [address] Main Bldg, 8th [place] [address] 11/17/2022 Ophth Exam Head and Neck Center Carli Church - Ophthalmology A, COA [address] Main Bldg, 9th Floor Elevator A [place] [phone] 11/17/2022 Orders Only Leukemia Center Terry, [address] MD Colt Main Bldg, 8th [place] [address] 11/14/2022 Documentation Radiation Treatment Megan Ortega MD Center [address] [place] [address] 11/14/2022 Orders Only Head and Neck Center Shaw Beard, Acute lymphoblastic - Ophthalmology OD leukemia (Primary [address] Dx) Main Bldg, 9th [place] [address] 11/14/2022 Orders Only Radiation Treatment Megan Ortega MD Acute lymphoblastic Center leukemia not having [address] achieved remission Main Bldg, 1st Floor (Primary Dx) [place] [address] 11/14/2022 Travel 11/13/2022 Hospital Encounter MAIN 19NW Windypola Lyons, Acute lymphoblastic leukemia (Primary Dx); 3:22 PM Cristine Constantino MD Blurring of visual image; CDT - Thomas Parks Neoplasm of optic nerve; 11/19/2022 [place] [address] MD Gadiel Menard chromosome-positive acute l ymphoblastic leukemia; 3:59 PM [phone] [facility] [place] Acute lymphob lastic leukemia not having achieved remission CDT MD Dougie Discharge Disposition: Home Sher James MD 11/13/2022 Hospital Encounter Main Flex Center Quan-Hannah, Acute lymphoblastic leukemia (Primary Dx); 10:[address] MD Lillie Visual acuity, no light perc eption; CDT - Main Bldg, 7th Floor Other disorder of bilateral optic nerves; 11/13/2022 Elevator C Other localized visual field defect of right eye 3:21 [place] [address] Discharge Disposition: Home CDT [phone] 11/13/2022 Telemedicine Leukemia Center - Magalis Morton, Acute lymphoblastic 10:00 AM West/Fast Track PA leukemia CDT [address] Main Bldg, 8th [place] [address] 11/13/2022 Hospital Encounter Leukemia Center - Magalis Morton, Acute lymphoblastic leukemia 8:45 AM West [place] Discharge Disposition: Home CDT - [address] 11/13/2022 Main Bldg, 8th Floor 10:08 [place] [address] 11/13/2022 Documentation Stem Cell [facility] [address] Main Bldg, 8th [place] [address] 11/13/2022 Travel 10/29/2022 Orders Only Leukemia Center Magalis Morton, [facility] (Primary Main Bldg, 8th Floor Dx) [place] [address] 10/28/2022 Follow-Up MD Quintanilla [facility] [place] [facility], Belia rectal abscess 8:30 AM [facility] Colorectal CDT Surgery [address] [place] [address] 10/28/2022 Travel 10/24/2022 Orders Only Leukemia Center Magalis Morton, Acute lymphoblastic 1515 [facility] PA leukemia (Primary Main Bldg, 8th Floor Dx) [place] [address] 10/21/2022 Orders Only Leukemia Center Sher James [address] May MD Main Bldg, 8th [place] [address] 10/20/2022 Hospital Encounter Vascular Access and Windy Lyons , Acute lymphoblastic leukemia 1:50 PM Procedures Center MD Dougie Discharge Disposition: Home CDT - [address] Antoniajocelyn Veronica 10/20/2022 Main Bldg, 8th Floor R, RN 11:59 PM Elevator [place] [address] PAO Rey [phone] 10/20/2022 Infusion Ambulatory Treatment Magalis Morton, [place] chromosome-positive acute lymphoblastic leukemia (Primary Dx); 7:45 AM [facility] Acute sinusitis, not otherwise specified CDT [address] Duyen Jauregui, [facility], 8th [place] [address] 10/20/2022 Orders Only Leukemia Center Barber Gomez MD [address] Main Bldg, 8th [place] [address] 10/20/2022 Travel 10/17/2022 Orders Only Leukemia Center Magalis Morton, Acute lymphoblastic [address] PA leukemia (Primary Main Bldg, 8th Floor Dx) [place] [address] 10/15/2022 Follow-Up Leukemia Center Windy Lyons, Acute lymphoblastic leukemia (Primary Dx); 1:[address] MD Dougie Acute sinusitis, not otherwi se specified; CDT Main Bldg, 8th Floor Menard chromosome-posi tive acute lymphoblastic [place] [address] 10/15/2022 Hospital Encounter Leukemia Center - Magalis Morton, Acute lymphoblastic leukemia 11:27 AM [facility] Discharge Disposition: Home CDT - [address] 10/15/2022 Main Bldg, 8th Floor 11:59 [place] [address] 10/15/2022 Hospital Encounter Vascular Access and [facility] , Encounter for adjustment and management of vascular access device 9:40 AM Procedures Center MD Dougie Discharge Disposition: Home CDT - [address] Joss Baez RN 10/15/2022 Main Bldg, 8th Floor 11:26 [place] [address] 10/15/2022 Orders Only Leukemia Center Magalis Morton, Acute lymphoblastic [address] PA leukemia (Primary Main Bldg, 8th Floor Dx) [place] [address] 10/15/2022 Travel 10/14/2022 Orders Only Bone Marrow Magalis Morton, [facility] [address] Main Bldg, 11th [place] [address] 10/08/2022 Office Visit Leukemia Center - Magalis Morton, Acute lymphoblastic 9:00 AM West/Fast Track PA leukemia CDT [address] Main Bldg, 8th [place] [address] 10/08/2022 Hospital Encounter Vascular Access and Windy Lyons , Encounter for adjustment and management of vascular access device 8:53 AM Procedures Center MD Dougie Discharge Disposition: Home CDT - [address] Di Pollard 10/08/2022 Main Bldg, 8th Floor S, RN 11:59 [place] [address] 10/08/2022 Hospital Encounter Leukemia Center - Magalis Morotn, Acute lymphoblastic leukemia 7:15 AM West [place] Discharge Disposition: Home CDT - [address] 10/08/2022 Main Bldg, 8th Floor 8:52 [place] [address] 10/08/2022 Travel 10/05/2022 Emergency Acute Cancer Care Missy, Acute bron chitis due to rhinovirus (Primary Dx); 1:58 PM Tangela Navarro MD Conjunctivitis; CDT - [address] Nasal congestion; 10/05/2022 Main Bldg, 1st Floor Menard chromosome-posi tive acute lymphoblastic leukemia 7:12 PM near [facility] Discharge Disposition: [place] [address] 10/05/2022 Travel 10/01/2022 Telemedicine Leukemia Center - Magalis Morton, Acute lymphoblastic 10:15 AM West/Fast Track PA leukemia CDT [address] Main Bldg, 8th [place] [address] 10/01/2022 Hospital Encounter Vascular Access and Windy Lyons , Encounter for adjustment and management of vascular access device 8:40 AM Procedures Center MD Dougie Discharge Disposition: Home CDT - [address] Olivier, 10/01/2022 Main Bldg, 8th Floor Carolyn Rey RN 11:59 [place] [address] 10/01/2022 Hospital Encounter Leukemia Center - Magalis Morton, Acute lymphoblastic leukemia 8:24 AM West [place] Discharge Disposition: Home CDT - [address] 10/01/2022 Main Bldg, 8th Floor 8:39 [place] [address] 10/01/2022 Travel 09/26/2022 Orders Only Leukemia Center Davidgallodavid Mayur [address] LILLY Underwood Main Bldg, 8th [place] [address] 09/25/2022 Hospital Encounter Vascular Access and Windy Lyons , Discharge 8:20 AM Procedures Center MD Dougie Disposition: Home HAND ROLLER - [address] David Davis 09/25/2022 Main Bldg, 8th Floor Adrien Martinez RN 11:59 [place] [address] 09/25/2022 Orders Only Leukemia Center Magalis Morton, [address] [place] Main Bldg, 8th [place] [address] 09/25/2022 Travel 09/17/2022 Follow-Up Leukemia Center Windy Lyons, Acute lymphoblastic 2:45 PM [address]y MD leukemia HAND ROLLER Main Bldg, 8th Floor Elevator A or B [place] [phone] 09/17/2022 Hospital Encounter Vascular Access and Windy Lyons , Encounter for adjustment and management of vascular access device 1:59 PM Procedures Center MD Dougie Discharge Disposition: Home HAND ROLLER - [address] Janessa Davalos, 09/17/2022 Main Bldg, 8th Floor RN 11:59 PM Elevator C [place] [phone] 09/17/2022 Hospital Encounter Bone Marrow Magalis Morton, Acute lymphoid leukemia 10:56 AM [facility] Discharge Disposition: Home HAND ROLLER - [address] Mirta Clark 09/17/2022 Main Bldg, 11th Floo r ANA MARIA Zuniga 1:58 [place] [address] 09/17/2022 Hospital Encounter Leukemia Center - Praveen Magalis Lima, Acute lymphoblastic leukemia; 9:48 AM Young RODGERS Acute lymphoid leukemia HAND ROLLER - [address] Discharge Disposition: Home 09/17/2022 Main Bldg, 8th Floor 10:55 [place] [address] 09/17/2022 Orders Only Leukemia Center Arabella Mortonylar Lima, Acute lymphoblastic [address] ANA MARIA leukemia (Primary Main Bldg, 8th Floor Dx) [place] [address] 09/17/2022 Orders Only Bone Marrow Alexsandra Vidales, [facility] [address] Main Bldg, 11th [place] [address] 09/17/2022 Travel 09/16/2022 Orders Only Bone Marrow Magalis Morton, [facility] [address] Main Bldg, 11th [place] [address] 09/11/2022 Office Visit Leukemia Center - Windy Bravo, Acute lymphoblastic 10:30 AM Young/James Constantino MD leukemia HAND ROLLER [address] Vandana Stafford Main Bldg, 8th Floor ANA MARIA Ashley Elevator B [place] [phone] 09/11/2022 Hospital Encounter Vascular Access and [facility] Eloy , Discharge 9:34 AM Procedures Tangela Constantino MD Disposition: Home HAND ROLLER - [address] Janessa Davalos, 09/11/2022 Main Bldg, 8th Floor RN 11:59 [place] [address] 09/11/2022 Hospital Encounter Leukemia Center - [facility] Eloy, Acute lymphoblastic leukemia 9:09 AM Young Constantino MD Discharge Disposition: Home HAND ROLLER - [address] 09/11/2022 Main Bldg, 8th Floor 9:33 [place] [address] 09/11/2022 Travel 09/04/2022 Telemedicine Leukemia Center - Windy Lyons, Acute lymphoblastic 10:30 AM West/Fast Track MD Dougie leukemia HAND ROLLER [address] Daniella, Main Bldg, 8th Floor Sindhu J, [place] [address] 09/04/2022 Hospital Encounter Vascular Access and Windy Lyons , Encounter for adjustment and management of vascular access device 9:21 AM Procedures Tangela Constantino MD Discharge Disposition: Home HAND ROLLER - [address] RickeySrinath stanleyidi 09/04/2022 Main Bldg, 8th Floor Trixie Sullivan RN 11:59 [place] [address] 09/04/2022 Hospital Encounter Leukemia Center - [facility] Eloy, Acute lymphoblastic leukemia 8:56 AM Young Constantino MD Discharge Disposition: Home HAND ROLLER - [address] 09/04/2022 Main Bldg, 8th Floor 9:20 [place] [address] 09/04/2022 Travel 09/02/2022 Orders Only Leukemia Center Stephanie Hilton Acute lymphoid [address] leukemia (Primary Main Bldg, 8th Floor Dx) [place] [address] 09/02/2022 Telephone Leukemia Center Sharlene Cruz RN [address] Main Bldg, 8th [place] [address] 08/28/2022 Telemedicine Leukemia Center - Magalis Morton, Acute lymphoblastic 10:30 AM West/Fast Track PA leukemia HAND ROLLER [address] Mirta Clark Main Bldg, 8th Floor N, [place] [address] 08/28/2022 Hospital Encounter Vascular Access and Windy Lyons , Encounter for adjustment and management of vascular access device 9:41 AM Almita Constantino MD Discharge Disposition: Home HAND ROLLER - [address] RyanDavid 08/28/2022 Main Bldg, 8th Floor Adrien Martinez RN 11:59 [place] [address] 08/28/2022 Hospital Encounter Leukemia Center - Magalis Morton, Acute lymphoblastic leukemia 8:48 AM West PA Discharge Disposition: Home HAND ROLLER - [address] 08/28/2022 Main Bldg, 8th Floor 9:40 [place] [address] 08/28/2022 Travel 08/28/2022 Orders Only Leukemia Center Magalis Morton, [address] PA Main Bldg, 8th [place] [address] 08/28/2022 Orders Only Leukemia Center Magalis Morton, [address] PA Main Bldg, 8th [place] [address] 08/27/2022 Orders Only Leukemia Center Eris Hiltontopher [address] Main Bldg, 8th [place] [address] 08/27/2022 Orders Only Leukemia Center - Magalis Morton, West/Fast Track PA [address] Main Bldg, 8th [place] [address] 08/27/2022 Case Management Case Management Asia Arenas, [address] [place] [address] 08/26/2022 Orders Only Leukemia Center Yobani Eristopher [address] Main Bldg, 8th [place] [address] 08/24/2022 Orders Only Leukemia Center Barber Gomez MD [address] Main Bldg, 8th [place] [address] 08/20/2022 Follow-Up Leukemia Center Windy Lyons, Acute lymphoblastic 2:[address] MD Dougie leukemia HAND ROLLER Main Bldg, 8th Floor Flavia [place] [address] 08/20/2022 Hospital Encounter Bone Marrow Magalis Morton, Acute lymphoblastic leukemia (Primary Dx) 12:46 PM [facility] PA Discharge Disposition: Home HAND ROLLER - [address] Crystal Tejada PA 08/20/2022 Main Bldg, 11th Floo r 11:59 [place] [address] 08/20/2022 Hospital Encounter Leukemia [place] - Magalis Morton, Acute lymphoblastic leukemia 9:23 AM West PA Discharge Disposition: Home HAND ROLLER - [address] 08/20/2022 Main Bldg, 8th Floor 12:45 [place] [address] 08/20/2022 Hospital Encounter Vascular Access and Windy Lyons , Encounter for adjustment and management of vascular access device 8:20 AM Almita Constantino MD Discharge Disposition: Home HAND ROLLER - [address] AntoniajocelynVeronica 08/20/2022 Main Bldg, 8th Floor R, RN 9:22 [place] [address] 08/20/2022 Orders Only Leukemia Center Magalis Morton, Acute lymphoblastic [address] PA leukemia (Primary Main Bldg, 8th Floor Dx) [place] [address] 08/20/2022 Travel 08/19/2022 Orders Only Bone Marrow Praveen Magalis L[place], [facility] PA [address] Main Bldg, 11th [place] [address] 08/18/2022 Telemedicine Leukemia Center - [facility] [place], Acute lymphoblastic 10:45 AM Young/James Constantino MD leukemia HAND ROLLER [address] Jaycob-Philip, Main Bldg, 8th Floor [place] [address] 08/18/2022 Hospital Encounter Leukemia Center - [facility] [place], Acute lymphoblastic leukemia 8:37 AM Young Constantino MD Discharge Disposition: Home HAND ROLLER - [address] 08/18/2022 Main Bldg, 8th Floor 11:59 [place] [address] 08/18/2022 Travel 08/14/2022 Office Visit Leukemia Center - [facility] Lyons, Acute lymphoblastic 10:45 AM West/Fast Track MD Dougie leukemia HAND ROLLER [address] Zhanna Pradhan, Main Bldg, 8th [place] [address] 08/14/2022 Hospital Encounter Leukemia Center - [facility], Acute lymphoblastic leukemia 9:15 AM Young Constantino MD Discharge Disposition: Home HAND ROLLER - [address] 08/14/2022 Main Bldg, 8th Floor 11:59 [place] [address] 08/14/2022 Hospital Encounter Vascular Access and [facility] , Encounter for adjustment and management of vascular access device 8:20 AM [facility] Tangela Constantino MD Discharge Disposition: Home HAND ROLLER - [address] JillianNickolas dasilvaDerrell 08/14/2022 Main Bldg, 8th Floor A, RN 9:14 [place] [address] 08/14/2022 Orders Only Leukemia Center Magalis Morton, Acute lymphoblastic leukemia (Primary Dx); [address] PA Acute lymphoblastic leukemia not having achieved remission; Main Bldg, 8th Floor Acute lymphoid [place] [address] 08/14/2022 Travel 08/13/2022 Orders Only Leukemia Center Magalis Morton, Acute lymphoblastic [address] PA leukemia (Primary Main Bldg, 8th Floor Dx) [place] [address] 08/11/2022 Office Visit Leukemia Center - Magalis Morton, Acute lymphoblastic 10:45 AM West/Fast Track PA leukemia HAND ROLLER [address] Vandana Stafford Main Bldg, 8th Floor Gabi, [place] [address] 08/11/2022 Hospital Encounter Leukemia Center - Magalis Morton, Acute lymphoblastic leukemia 8:50 AM West PA Discharge Disposition: Home HAND ROLLER - [address] 08/11/2022 Main Bldg, 8th Floor 11:59 [place] [address] 08/11/2022 Travel 08/08/2022 Telemedicine Leukemia Center - Magalis Morton, Acute lymphoblastic 10:30 AM West/Fast Track PA leukemia HAND ROLLER [address] Mattie Tong Main Bldg, 8th Floor D, CLOTH BLEACHING RANGE [place] [address] 08/08/2022 Hospital Encounter Vascular Access and Windy Lyons , Encounter for adjustment and management of vascular access device 8:49 AM Procedures Center MD Dougie Discharge Disposition: Home HAND ROLLER - [address] Christiano, 08/08/2022 Main Bldg, 8th Floor Courtney Sullivan RN 11:59 [place] [address] 08/08/2022 Hospital Encounter Leukemia Center - Magalis Morton, Acute lymphoblastic leukemia 8:25 AM West PA Discharge Disposition: Home HAND ROLLER - [address] 08/08/2022 Main Bldg, 8th Floor 8:48 [place] [address] 08/08/2022 Orders Only Leukemia Center Magalis Morton, Acute lymphoblastic [address] PA leukemia (Primary Main Bldg, 8th Floor Dx) [place] [address] 08/08/2022 Travel 08/06/2022 Clinical Support Leukemia Center Magalis Morton, Acute lymphoblastic 3:[address] PA leukemia HAND ROLLER Main Bldg, 8th Floor Veronica Gordon, [place] [address] 08/06/2022 Follow-Up Leukemia Center Windy Lyons, Acute lymphoblastic 3:[address] MD Dougie leukemia HAND ROLLER Main Bldg, 8th [place] [address] 08/06/2022 Hospital Encounter Leukemia Center - Magalis Morton, Acute lymphoblastic leukemia 11:50 AM West PA Discharge Disposition: Home HAND ROLLER - [address] 08/06/2022 Main Bldg, 8th Floor 11:59 [place] [address] 08/06/2022 Orders Only Leukemia Center Magalis Morton, Acute lymphoblastic [address] PA leukemia (Primary Main Bldg, 8th Floor Dx) [place] [address] 08/06/2022 Travel 08/04/2022 Hospital Encounter Ambulatory Treatment Lindsay-Ezra , Acute lymphoblastic leukemia 11:36 AM [facility] Israel Dee APRN Discharge Disposition: Home HAND ROLLER - [place] 08/04/[address] Laurie RN 11:59 PM Main Bldg, 2nd Floor [place] [address] 08/04/2022 Clinical Support [facility] Check Magalis Morton , Acute lymphoblastic 10:15 AM Clinic PA leukemia HAND ROLLER [address] Francia Cuevas, Main Bldg, 9th [place] [address] 08/04/2022 Hospital Encounter Diagnostic Laboratory Magalis Morton, Acute lymphoblastic leukemia 7:45 AM [place] PA Discharge Disposition: Home HAND ROLLER - [address] 08/04/2022 Main Bldg, Elevator A 11:[address] 08/04/2022 Travel 08/01/2022 Telemedicine Leukemia Center - Magalis Morton, Acute lymphoblastic 10:45 AM West/Fast Track PA leukemia HAND ROLLER [address] Jose Hall Main Bldg, 8th Floor NII Avendaño Elevator B [place] [id number] 08/01/2022 Hospital Encounter Vascular Access and Windy Lyons , Encounter for adjustment and management of vascular access device 10:04 AM Procedures Center MD Dougie Discharge Disposition: Home HAND ROLLER - [address] Kim Burrell, 08/01/2022 Main Bldg, 8th Floor RN 11:59 [place] [address] 08/01/2022 Hospital Encounter Leukemia Center - Magalis Morton, Acute lymphoblastic leukemia 8:48 AM [place] PA Discharge Disposition: Home HAND ROLLER - [address] 08/01/2022 Main Bldg, 8th Floor 10:03 [place] [address] 08/01/2022 Orders Only Leukemia Center [facility], Acute lymphoid [address] NII Dee leukemia (Primary Main Bldg, 8th Floor Dx) [place] [address] 08/01/2022 Orders Only Leukemia Center Magalis Morton, [address] PA Main Bldg, 8th [place] [address] 08/01/2022 Travel 07/31/2022 Orders Only Bone Marrow Magalis Morton, Acute lymph oblastic [facility] PA leukemia (Primary [address] Dx) Main Bldg, 11th [place] [address] 07/31/2022 Telephone [place] [facility] development director On[place] [address] [place] [address] 07/30/2022 Follow-Up Leukemia Center Windy Lyons, Acute lymphoblastic 3:[address] MD Dougie leukemia HAND ROLLER Main Bldg, 8th [place] [address] 07/30/2022 Hospital Encounter Bone Marrow Magalis Morton, Acute lymphoblastic leukemia 12:47 PM [facility] PA Discharge Disposition: Home HAND ROLLER - [address] Stu, 07/30/2022 Main Bldg, 11th Floo r NII Benedict 11:59 [place] [address] 07/30/2022 Hospital Encounter Diagnostic Laboratory Magalis Morton, Acute lymphoid leukemia 11:23 AM Center PA Discharge Disposition: Home HAND ROLLER - [address] 07/30/2022 Main Bldg, Elevator [place] 12:46 [place] [address] [facility] 07/30/2022 Orders Only Leukemia Center Magalis Morton, Acute lymphoblastic [address] PA leukemia (Primary Main Bldg, 8th Floor Dx) [place] [address] 07/30/2022 Travel 07/29/2022 Hospital Encounter Ambulatory Treatment Zhanna Pradhan, Acute lymphoblastic leukemia 9:50 AM [place] - [facility] Discharge Disposition: Home [facility] - Micah ChesterBrenton hart 07/29/[address] Kt Zuniga RN 11:59 PM Main Bldg, 2nd Floor [place] [address] 07/29/2022 Office Visit Leukemia Center - Windy Lyons, Acute lymphoblastic leukemia (Primary Dx); 8:00 AM [place] Track MD Dougie Other secondary thrombocytopenia; HAND ROLLER [address] Omid, Zabrina Anemia due to antineoplastic chemotherapy Main Bldg, 8th Floor N, [place] [address] 07/29/2022 Hospital Encounter Leukemia Center - Magalis Morton, Acute lymphoblastic leukemia; 7:15 AM [facility] Acute lymphoblastic leukemia not having achieved remission HAND ROLLER - [address] Discharge Disposition: Home 07/29/2022 Main Bldg, 8th Floor 9:49 [place] [address] 07/29/2022 Orders Only Bone Marrow Magalis Morton, Acute lymph oid [facility] [place] leukemia (Primary [address] Dx) Main Bldg, 11th [place] [address] 07/29/2022 Travel 07/26/2022 Clinical Support [facility] Windy Lyons , Acute lymphoblastic 8:00 AM Clinic MD Dougie leukemia HAND ROLLER [address] Garcia, Main Bldg, 9th Floor Del[place] [address] 07/26/2022 Hospital Encounter Diagnostic Laboratory Marco A Kingsley, Acute lymphoid leukemia 7:00 AM Center CLOTH BLEACHING RANGE BACK TENDER Discharge Disposition: Home HAND ROLLER - [address] 07/26/2022 Main Bldg, Elevator A 11:[address] 07/26/2022 Travel 07/24/2022 Hospital Encounter Ambulatory Treatment Krissy Mccord cute lymphoblastic leukemia 10:25 AM [place] - [facility] NII Benedict Discharge Disposition: Home [facility] - Kimo Alonso, VALENTINA 07/24/[address] 11:59 PM Main Bldg, 2nd Floor [place] [address] 07/24/2022 Hospital Encounter Vascular Access and [facility] , Encounter for adjustment and management of vascular access device 9:40 AM Procedures Tangela Constantino MD Discharge Disposition: Home HAND ROLLER - [address] Olivier, 07/24/2022 Main Bldg, 8th Floor Carolyn Rey RN 10:24 [place] [address] 07/24/2022 [facility] chromosome-positive acute lymphoblastic leukemia (Primary Dx); 9:30 AM Young/James Constantino MD Acute lymphoid leukemia [facility] [address] Kaled, Main Bldg, 8th Floor Marichuy, CLOTH BLEACHING RANGE [place] [address] 07/24/2022 Hospital Encounter Leukemia Center - [facility], [place] chromosome-positive acute lymphoblastic leukemia 8:30 AM Young Constantino MD Discharge Disposition: Home HAND ROLLER - [address] 07/24/2022 Main Bldg, 8th Floor 9:39 [place] [address] 07/24/2022 Orders Only Leukemia Center Zabrina Anne Acute lymphoblastic [address] Efrain PA leukemia (Primary Main Bldg, 8th Floor Dx) [place] [address] 07/24/2022 Orders Only Leukemia Center [place], Acute lymphoblastic [address] Marichuy, CLOTH BLEACHING RANGE BACK TENDER leukemia (Primary Main Bldg, 8th Floor Dx) [place] [address] 07/24/2022 Travel 07/22/2022 Hospital Encounter Ambulatory Treatment Magalis Morton, Acute lymphoblastic leukemia 1:35 PM Center - Main PA Discharge Disposition: Home HAND ROLLER - Yvette Jiang 07/22/[address] D, RN 11:59 PM Main Bldg, 2nd Floor [place] [address] 07/22/2022 Telemedicine Leukemia Center - Windy Lyons, Acute lymphoblastic 9:30 AM West/Fast Track MD Dougie leukemia (Primary HAND ROLLER [address] Magalis Morton, Dx) Main Bldg, 8th [place] [address] 07/22/2022 Hospital Encounter Leukemia Center - Marco A Kingsley Acut e lymphoid leukemia 8:30 AM West CLOTH BLEACHING RANGE BACK TENDER Discharge Disposition: Home HAND ROLLER - [address] 07/22/2022 Main Bldg, 8th Floor 1:34 [place] [address] 07/22/2022 Orders Only Leukemia Center - Magalis Morton, Acute lymphoblastic West/Fast Track PA leukemia (Primary [address] Dx) Main Bldg, 8th [place] [address] 07/22/2022 Travel 07/17/2022 Orders Only MAIN 19SE Marco A Kingsley, Acute lymphoid [address] CLOTH BLEACHING RANGE BACK TENDER leukemia (Prim [place]) [place] [address] 07/17/2022 Orders Only Ambulatory Treatment Magalis Morton Acu te lymphoblastic Center - [facility] [place] leukemia not having [address] achieved remission Use the [facility], (Primar y Dx) [facility] entrance. You [place] [address] 07/17/2022 Orders Only Leukemia Center Stephanie Hilton Acute lymphoblastic [address] leukemia (Primary Main Bldg, 8th Floor Dx) [place] [address] 07/11/2022 Social Work MAIN 19NW Matthew Collier, [address] MACHINE [employer]TER [place] [address] 07/09/2022 Orders Only Leukemia Center Stephanie Hilton [address] Main Bldg, 8th [place] [address] 07/06/2022 Orders Only [facility] Shaw Beard Papil ledema of left - Ophthalmology OD eye (Primary Dx) [address] Main Bldg, 9th [place] [address] 07/03/2022 Orders Only [facility] Shaw Beard Papil ledema of left - Ophthalmology OD eye (Primary Dx) [address] Main Bldg, 9th [place] [address] 07/03/2022 Ophth Exam [facility] Shaw Beard, - Ophthalmology OD [address] Main Bldg, 9th [place] [address] 07/02/2022 Documentation Camila Borrego, Services OT [address] Main Bldg, Main Bldg, 1st FloorG1.3418 [place] [address] 07/01/2022 Orders Only Leukemia Center Stephanie Hilton [address] Main Bldg, 8th [place] [address] 06/30/2022 Hospital Encounter [facility] SCT DONOR LAB Pepe, Disc harge 3:58 PM MD Taylor Disposition: [facility] HAND ROLLER - 06/30/2022 11:59 PM HAND ROLLER 06/27/2022 Hospital Encounter MDA SCT DONOR LAB Pepe, Disc harge 5:59 PM MD Taylor Disposition: [facility] HAND ROLLER - 06/27/2022 11:59 PM HAND ROLLER 06/27/2022 Orders Only Leukemia Center Yanelis Colmenares [address] ANA MARIA Robles Main Bldg, 8th [place] [address] 06/25/2022 Hospital Encounter MAIN 19SW Windy Lyons, 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); 7:49 PM Cristine Constantino MD Papilledema of left eye; HAND ROLLER - Braeden Jenkins, Encounter for adjustment and management of vascular access device; 07/18/2022 [place] [address] MD Alla Blood coagulation disorder; 2:05 PM [phone] [place], Hyponatremia; HAND ROLLER Dana Severe sepsis, not otherwise specified; MD Marichuy Adult failure to thrive; Dehydration; Nausea and vomi ting; Anemia due to a ntineoplastic chemotherapy; Neoplasm of opt ic nerve; Malignant menin gitis; Blurring of vis ual image; Diarrhea; Perirectal absc ess; Encounter for a ntineoplastic chemotherapy; Severe protein- calorie malnutrition, not otherwise specified; Hematochezia; Bleeding gums; Electrolyte and fluid disorders not elsewhere classified; Other secondary thrombocytopenia; COVID-19; Acute myeloblas tic leukemia not having achieved remission; Acute lymphobla stic leukemia not having achieved remission; Acute lymphoid leukemia Discharge Dispo sition: Home 06/25/2022 Follow-Up Leukemia Center Windy Lyons, Acute lymphoblastic 4:15 PM Cristine Constantino MD leukemia not having HAND ROLLER Main Bldg, 8th Floor achieved [place] [address] 06/25/2022 Clinical Support [facility] Magalis Morton, Suspected COVID-19 (Primary Dx); 3:00 PM - [facility] ANA MARIA Acute lymphoid leukemia [facility] [facility], 8th [place], [place] Floor Elevator T - [address] Check In [place], [place] [id number] 06/25/2022 Hospital Encounter Bone Marrow Magalis Morton, Acute lymphoid leukemia 12:48 PM [facility] PA Discharge Disposition: Home HAND ROLLER - [address], 06/25/2022 Main Fidel, 11th ANA MARIA Duarte 7:48 [place] [address] 06/25/2022 Ancillary Procedure X-Ray Outpatient Magalis Morton, Acute lymphoid 9:15 AM Center PA leukemia HAND ROLLER [address] [facility], 7th [place] [address] 06/25/2022 Hospital Encounter [facility] Magalis Morton, Acute lymphoid leukemia 7:48 AM - Cardiology PA Discharge Disposition: Home HAND ROLLER - [address] 06/25/2022 Main Bldg, 2nd Floor 12:47 [place] [address] 06/25/2022 Hospital Encounter Diagnostic Laboratory Kiara, Acute lymphoblastic leukemia not having achieved remission; 7:45 AM Center Liberty Rey APRN Acute lymphoid leukemia HAND ROLLER - [address] Discharge Disposition: Home 06/25/2022 Main Bldg, Elevator [place] 7:47 [place] [address] [facility] 06/25/[address] Imaging Magalis Morton, Acute lymphoid 6:[address] PA leukemia HAND ROLLER [facility], 7th [place] [address] 06/25/2022 Orders Only Leukemia Center Doug Varma [address] MD Dougie chromosome-positive Main Bldg, 8th Floor acute lymphoblastic Elevator A or B [place] ([place] [address] Dx) [phone] 06/25/2022 Orders Only Leukemia Center Stephanie Hilton [address] Main Bldg, 8th [place] [address] 06/25/2022 Orders Only Leukemia Center Akbar, Acute lymphoid [address] ANA MARIA Gerber leukemia (Primary Main Bldg, 8th Floor Dx) [place] [address] 06/25/2022 Travel 06/24/2022 Orders Only Leukemia Center Mayur Kwon [address] [place] Main Bldg, 8th [place] [address] 06/24/2022 Orders Only Leukemia Center Magalis Morton, Acute lymphoid [address] PA leukemia (Primary Main Bldg, 8th Floor Dx) [place] [address] 2022 Hospital Encounter Vascular Access and Windy Lyons , Encounter for adjustment and management of vascular access device 8:39 AM Procedures Center MD Dougie Discharge Disposition: Home HAND ROLLER - [address] Alejandra Dumont, 2022 [facility], 8th RN 11:59 PM [place] [address] 2022 Travel 06/20/2022 Hospital Encounter Vascular Access and Windy Lyons , Encounter for adjustment and management of vascular access device 10:00 AM Procedures Center MD Dougie Discharge Disposition: Home HAND ROLLER - [address] Di Pollard 06/20/2022 [facility], 8th S, RN 11:59 PM [place] [address] 06/20/2022 Hospital Encounter Diagnostic Laboratory Magalis Morton, Acute lymphoblastic leukemia not having achieved remission 9:30 AM Center ANA MARIA Discharge Disposition: Home HAND ROLLER - [address] 06/20/2022 Main Bldg, Elevator [place] 9:59 [place] [address] HAND ROLLER 06/20/2022 Travel 06/20/2022 Orders Only Leukemia Center Stephanie Hilton Acute lymphoid [address] leukemia (Primary Main Bldg, 8th Floor Dx) [place] [address] 06/19/2022 Orders Only Leukemia Center Magalis Morton, Acute lymphoblastic [address] PA leukemia not having Main Bldg, 8th Floor achieved remission Elevator A or B (Primary [place]x) [place] [address] 06/18/2022 Telemedicine Leukemia Center - Kiara, Luiz lymp hoblastic leukemia not having achieved remission (Primary Dx); 10:45 AM West/Fast Track Liberty A, CLOTH BLEACHING RANGE BACK TENDER Anemia due to antineoplastic chemotherap y; HAND ROLLER [address] Zhou, Abdias, Other secondary thrombocytop enia; Main Bldg, 8th Floor CLOTH BLEACHING RANGE BACK TENDER Immunosuppression; Elevator B [place] ([place]) [place] [address] 06/18/2022 Hospital Encounter Vascular Access and Windy Lyons , Encounter for adjustment and management of vascular access device 8:30 AM Procedures Center MD Dougie Discharge Disposition: Home HAND ROLLER - [address] Alejandra Dumont, 06/18/2022[facility], 8th RN 11:59 PM [place] [address] 06/18/2022 Hospital Encounter Leukemia Center - Antonieta Craig e lymphoblastic leukemia not having achieved remission 7:58 AM Young Rey APRN Discharge Disposition: Home HAND ROLLER - [address] 06/18/2022 Main Bldg, 8th Floor 8:29 [place] [address] 06/18/2022 Travel 06/16/2022 Hospital Encounter Ambulatory Treatment Susan Tobar, Acute lymphoblastic leukemia not having achieved remission 10:57 AM [facility] ANA MARIA Salvador Discharge Disposition: Home HAND ROLLER - Veronica Vizcaino, 06/16/[address] RN 11:59 PM Main Bldg, 2nd Floor [place] [address] 06/16/2022 Office Visit Leukemia Center - Windy Lyons, Acute lymphoblastic 10:45 AM West/Fast Track MD Dougie leukemia not having HAND ROLLER [address] Susan Tobar, achieved remission Main Bldg, 8th Floor ANA MARIA Larkin (Primary Dx) [place] [address] 06/16/2022 Hospital Encounter Vascular Access and Windy Lyons , Encounter for adjustment and management of vascular access device 9:08 AM Procedures Center MD Dougie Discharge Disposition: Home HAND ROLLER - [address] Jose GuadalupeMely dasilva 06/16/2022 [facility], 8th 10:56 AM [place] [address] 06/16/2022 Hospital Encounter Leukemia Center - Angy, Yuhua, Acut e lymphoblastic leukemia, in remission 8:14 AM West CLOTH [employer] R[employer] BACK TENDER Discharge Disposition: Home HAND ROLLER - [address] 06/16/2022 Main Bldg, 8th Floor 9:07 [place] [address] 06/16/2022 Travel 06/14/2022 Orders Only Leukemia Center Everton Jackson, Acute lymphoblastic [address] CLOTH [employer] BACK TENDER leukemia not having Main Bldg, 8th Floor achieved remission Elevator A or B (Primary Dx) [place] [address] 06/11/2022 Clinical Support Leukemia Center - Magalis Morton, Ac zack lymphoblastic 10:15 AM West/Fast Track PA leukemia not having HAND ROLLER [address] Hailee, achieved remission Main Bldg, 8th Floor [place] [address] 06/11/2022 Hospital Encounter MAIN 19SW Tai, Diarrhea (Primary Dx); 8:10 AM 151Chang Schaffer MD Nausea and vomiting; HAND ROLLER - Braeden Lyons, Fatigue; 06/14/2022 [place] [address] MD Dougie Adult failure to thrive; 6:40 PM [phone] Cellulitis of e xternal nose; HAND ROLLER Hypokalemia; Hypophosphatemi a; Prerenal azotem ia; Dehydration; Menard ch romosome-positive acute lymphoblastic leukemia Discharge Dispo sition: Home 06/11/2022 Hospital Encounter Leukemia Center - Magalis Morton, Acute lymphoblastic leukemia not having achieved remission 7:36 AM West [place] Discharge Disposition: Home HAND ROLLER - [address] 06/11/2022 Main Bldg, 8th Floor 8:09 [place] [address] 06/11/2022 Travel 06/10/2022 Office Visit Leukemia Center - Kiara, Acute lymp hoblastic 10:45 AM West/Fast Track Liberty Rey CLOTH [employer] BACK TENDER leukemia not having HAND ROLLER [address] Magalis Morton, achieved remission Main Bldg, 8th [place] [address] 06/10/2022 Hospital Encounter Leukemia Center - KiaraAntonieta lymphoblastic leukemia not having achieved remission 7:42 AM Young Rey APRN Discharge Disposition: Home HAND ROLLER - [address] 06/10/2022 Main Bldg, 8th Floor 11:59 [place] [address] 06/10/2022 Orders Only Leukemia Center - Magalis Morton, West/Fast Track PA [address] Main Bldg, 8th [place] [address] 06/10/2022 Orders Only Leukemia Center Zhanna Pradhan A, Acute lymphoblastic [address] PA leukemia not having Main Bldg, 8th Floor achieved remission Elevator A or B (Primary Dx) [place] [address] 06/10/2022 Travel 06/08/2022 Orders Only Leukemia Center Everton Jackson, Acute lymphoblastic [address] CLOTH [employer] BACK TENDER leukemia, in Main Bldg, 8th Floor remission (Primary Elevator A [place] Dx) [place] [address] 06/04/2022 Hospital Encounter MAIN 19SW Windy Bravo, Acute lymphoid leukemia (Lexi yanelis Dx); 7:25 PM Cristine Constantino MD Menard chromosome-positive acute lymphoblastic leukemia; HAND ROLLER - [place]unction Acute lymphoblastic leukemia not having achieved remission 06/08/2022 [place] [address] Discharge Disposition: Home 2:57 PM [phone] HAND ROLLER after 06/08/2022 Surgical History Surgery Date Site/Laterality Comments [place] ANRCT XM SURG REQ ANES 07/16/2020 Anus/N/A Proced ure: DIAGNOSTIC GENERAL SPI/EDRL DX SURGICAL ANO RECTAL EXAM UNDER ANESTHESIA; Surg jody: Garrett Goldberg MD; Loc ation: MAIN OR; Service: AMRITA G ONC - COLORECTAL TN INCISION & DRAINAGE 07/16/2020 N/A Procedure : I&D OF ABSCESS SIMPLE/SINGLE ABSCESS--C UTANEOUS OR SQ, seton placement; Surgeon: Laurie Orona; Location: MAIN OR; Service : SURG ONC - COLORECTAL TN ANOSCOPY W/BX 07/16/2020 Anus/N/A Procedure: ANOS COPY WITH SINGLE/MULTIPLE BIOPSY; Surgeon: Garrett Goldberg MD; Loc ation: MAIN OR; Service: AMRITA G ONC - COLORECTAL TN INJECTION AA&/STRD 07/16/2020 N/A Procedure: INJECTION OF PUDENDAL NERVE ANESTHETIC AGENT INTO PUDENDAL NERVE; Surgeon: Laurie Orona; Location: MAIN OR; Service : SURG ONC - COLORECTAL TN ANRCT XM SURG REQ ANES 08/29/2020 Anus/N/A Proced ure: DIAGNOSTIC GENERAL SPI/EDRL DX SURGICAL ANO RECTAL EXAM UNDER ANESTHESIA; Surg jody: Garrett Goldberg MD; Loc ation: MAIN OR; Service: COL ON & RECTAL SURGERY TN INCISION & DRAINAGE 08/29/2020 Anus/N/A Procedure : INCISION AND ABSCESS COMPLICATED/MULTIPLE JIMMY INAGE OF ABSCESS, seton placement; Surge on: Garrett Goldberg MD; Loc ation: MAIN OR; Service: COL ON & RECTAL SURGERY TN INJECTION AA&/STRD 08/29/2020 Anus/N/A Procedure: INJECTION OF PUDENDAL NERVE ANESTHETIC AGENT INTO PUDENDAL NERVE; Surgeon: Laurie Orona; Location: MAIN OR; Service : COLON & RECTAL SURGERY TN UNLISTED PROCEDURE 04/10/2021 Bilateral Procedure: DENTAL DENTOALVEOLAR STRUCTURES EXTRACT ION(S); Surgeon: Cherelle Jonas; Location: MAIN OR; Service : ORAL ONCOLOGY & MAXIL LOFACIAL PROSTHODONTICS Medical History Medical History Date Comments Cancer Esophagitis Diverticular disease Adjustment disorder with anxiety Family History Medical History Relation Name Comments Diabetes Maternal Aunt Diabetes Maternal Grandmother Hypertension Mother Cancer Paternal Uncle Amblyopia Neg Hx Blindness Neg Hx Glaucoma Neg Hx Heart disease Neg Hx Macular degeneration Neg Hx Retinal detachment Neg Hx Strabismus Neg Hx Relation Name Status Comments Daughter 1 Alive Daughter 2 Alive Father Maternal Aunt Maternal Grandmother Mother Alive Paternal Uncle Son 1 Alive Son 2 Alive Social History Tobacco Use Types Packs/Day Years Used Date Smoking Tobacco: Former Cigarettes 1 24 Quit : 04/03/2020 Smokeless Tobacco: Never Tobacco Cessation: Counseling Given: Not Answered Alcohol Use Standard Drinks/Week Comments Not Currently 6 (1 standard drink = 0.6 oz pure alcoho l) weekends AUDIT-C Answer Date Recorded Q1: How often do you have a drink containing alcohol? Never 07/16/2020 Average Number of Drinks Not on file 07/16/2020 Frequency of Binge Drinking Not on file 07/16/2020 Sex and Gender Information Value Date Recorded Sex Assigned at Male 09/17/2020 4:47 PM HAND ROLLER Gender Identity Male 09/17/2020 4:[address] Sexual Orientation Straight 09/17/2020 4:[address] Job Start Date Occupation Industry Not on file Not on file Not on file Obstetrics History Last Filed Vital Signs Vital Sign Reading Time Taken Comments Blood Pressure 101/66 05/27/2023 2:26 PM HAND ROLLER Pulse 69 05/27/2023 2:26 PM HAND ROLLER Temperature 36.7 C (98.1 F) 05/27/2023 2:26 PM HAND ROLLER Respiratory Rate 17 05/27/2023 2:26 PM HAND ROLLER Oxygen Saturation 99% 05/27/2023 2:26 PM HAND ROLLER Inhaled Oxygen Concentration - - Weight 91 kg (200 lb 9.9 oz) 05/27/2023 2:26 PM HAND ROLLER Height 177.8 cm (5' 10") 04/15/2023 12:28 PM CDT Body Mass Index 28.79 04/15/2023 12:28 PM CDT Plan of Treatment Date Type Department Care Team Description 06/17/2023 Ancillary Procedure [facility] Zohreh Dejesus, 7:30 AM HAND ROLLER Biomedical Imaging [facility] [facility] [address] [address] [facility] [place] [address] (Work) [phone] 06/18/2023 Office Visit [facility] Zohreh Dejesus, 11:10 AM HAND ROLLER - Neuro Oncology [address] [facility] [address] [facility] Main [facility], 7th [place] [address] Elevator B [phone] [place] [address] (Work) [phone] 2023 Procedure visit Genitourinary Cancer Jamari Church 8:00 AM HAND ROLLER Tangela ELIZABETH MD [address] [facility] 15[address] [facility], [address]th [place] [address] Elevator U [phone] [place] [address] (Work) [phone] 2023 Office Visit Internal Medicine Radha London MD 11:30 AM HAND ROLLER Center [address] [place] [address] [facility], 6th Dennys or [phone] Elevator U ([place]) [place] [address] [phone] 2023 Procedure visit Genitourinary Cancer Jamari Church Madelin 12:30 PM HAND ROLLER Center MD CLARA [address] [facility], 7th [facility] [place] [address] Elevator U [phone] [place] [address] (Work) [phone] 06/24/2023 Appointment Diagnostic Laboratory Magalis Morton, 9:15 AM HAND ROLLER Center [place] [address] Main Bldg, Elevator A [place], [place] [id number] [place] [address] 06/24/2023 Follow-Up Leukemia Center Windy Lyons, 10:45 AM [facility] [address] MD Dougie Main Bldg, 8th Floor [address] [place] [place] [address] [place] [address] [phone] Health Maintenance Due Date Last Done Comments COVID-19 Vaccination (#1) 1975 Procedures Procedure Name Priority Date/Time Associated Comments Diagnosis HISTORICAL ABORH Routine 05/27/2023 2:34 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 .CBC Routine 05/27/2023 1:46 Acute lymphoblastic Resul ts for PM HAND ROLLER leukemia this procedure are in the results section. COMPLETE BLOOD COUNT W/ Routine 05/27/2023 1:46 Acute lymphobl astic Results for DIFFERENTIAL PM HAND ROLLER leukemia this procedure are in the results section. 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 ELECTROLYTE PANEL Routine 05/27/2023 1:46 Acute lymphoblastic Results for PM HAND ROLLER leukemia this procedure are in the results section. ALANINE Routine 05/27/2023 1:46 Acute lymphoblastic Resul ts for AMINOTRANSFERASE PM HAND ROLLER leukemia this proced ure are in the results section. LACTATE DEHYDROGENASE Routine 05/27/2023 1:46 Acute lymphoblas tic Results for PM HAND ROLLER leukemia this procedure are in the results section. ALKALINE PHOSPHATASE Routine 05/27/2023 1:46 Acute lymphoblast ic Results for PM HAND ROLLER leukemia this procedure are in the results section. FRACTIONATED BILIRUBIN Routine 05/27/2023 1:46 Acute lymphobla stic Results for PM HAND ROLLER leukemia this procedure are in the results section. 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 BLOOD UREA NITROGEN Routine 05/27/2023 1:46 Acute lymphoblasti c Results for PM HAND ROLLER leukemia this procedure are in the results section. 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 CALCIUM LEVEL Routine 05/27/2023 1:46 Acute lymphoblastic Resu lts for PM HAND ROLLER leukemia this procedure are in the results section. ALBUMIN LEVEL Routine 05/27/2023 1:46 Acute lymphoblastic Resu lts for PM HAND ROLLER leukemia this procedure are in the results section. TOTAL PROTEIN Routine 05/27/2023 1:46 Acute lymphoblastic Resu lts for PM HAND ROLLER leukemia this procedure are in the results section. MRI CERVICAL THORACIC STAT 05/21/2023 9:48 Acute lymphoblas tic Results for LUMBAR SPINE W WO PM CDT leukemia not having thi s procedure CONTRAST achieved remission are in th e results section. TN DIAGNOSTIC LUMBAR Routine 05/07/2023 4:52 Acute lymphoblast ic Results for SPINAL PUNCTURE PM CDT leukemia not having this procedure achieved remission are in th e results section. HP FC CAR19 ([id number]) Routine 05/07/2023 3:24 FINAL REPORT PM CDT HP FC FLOW CYTOMETRY Routine 05/07/2023 3:24 Resu lts for BLOOD COLLECTION PM CDT this proced ure are in the results section. HP FC CAR19 ([id number]) Routine 05/07/2023 3:24 Acute lymphoblasti c Results for COLLECTION, NONBLOOD PM CDT leukemia not having this procedure achieved remission are in th e results section. HP FC MRD B ALL Routine 05/07/2023 3:24 Acute lymphoblastic Re sults for COLLECTION, NONBLOOD PM CDT leukemia not having this procedure achieved remission are in th e results section. CELL COUNT W/ DIFF Routine 05/07/2023 3:24 Acute lymphoblastic Results for CEREBROSPINAL FLUID PM CDT leukemia not having t his procedure achieved remission are in th e results section. PROTEIN CEREBROSPINAL Routine 05/07/2023 3:24 Acute lymphoblas tic Results for FLUID PM CDT leukemia not having this pro cedure achieved remission are in th e results section. GLUCOSE CEREBROSPINAL Routine 05/07/2023 3:24 Acute lymphoblas tic Results for FLUID PM CDT leukemia not having this pro cedure achieved remission are in th e results section. KAILEY VIRUS QUANT PCR, CSF Routine 05/07/2023 3:24 Acute lymphobl astic Results for PM CDT leukemia not having this pro cedure achieved remission are in th e results section. CYTOLOGY NON-RISK MANAGEMENT PROFESSIONAL Routine 05/07/2023 3:20 Acute lymphoblastic R esults for INTERPRETATION PM CDT leukemia not having this p rocedure achieved remission are in th e results section. ADAPTIVE CLONOSEQ-SEND Routine 05/06/2023 10:12 Acute lymphobl astic Results for OUT, PERIPHERAL BLOOD AM CDT leukemia this p rocedure are in the results section. TMP INTERPRETATION Routine 05/06/2023 8:11 Result s for ANTIBODY SCREEN AM CDT this procedu re NEGATIVE are in the results section. CLOT EXPIRATION DATE Routine 05/06/2023 8:11 Resu lts for AM CDT this procedure are in the results section. LEW GARCIA T(9;22) BCR/ABL1 Routine 05/06/2023 8:11 QUANTITATIVE PCR AM CDT INTERPRETATION AND REPORT ANTIBODY SCREEN Routine 05/06/2023 8:11 Acute lymphoblastic Re sults for AM CDT leukemia this procedure are in the results section. ABORH Routine 05/06/2023 8:11 Acute lymphoblastic Resul ts for AM CDT leukemia this procedure are in the results section. DIFFERENTIAL Routine 05/06/2023 8:11 Acute lymphoblastic Resul ts for AM CDT leukemia this procedure are in the results section. .CBC Routine 05/06/2023 8:11 Acute lymphoblastic Resul ts for AM CDT leukemia this procedure are in the results section. .GLOMERULAR FILTRATION Routine 05/06/2023 8:11 Acute lymphobla stic Results for RATE AM CDT leukemia this procedure are in the results section. SERUM CREATININE Routine 05/06/2023 8:11 Acute lymphoblastic R esults for AM CDT leukemia this procedure are in the results section. LEW GARCIA T(9;22) BCR/ABL1 Routine 05/06/2023 8:11 Acute lymphobla stic Results for QUANTITATIVE PCR AM CDT leukemia this proced ure COLLECTION, BLOOD are in the results section. ADAPTIVE CLONOSEQ-SEND Routine 05/06/2023 8:11 Acute lymphobla stic Results for OUT, PERIPHERAL BLOOD AM CDT leukemia this p rocedure are in the results section. COMPLETE BLOOD COUNT W/ Routine 05/06/2023 8:11 Acute lymphobl astic DIFFERENTIAL AM CDT leukemia TYPE AND SCREEN Routine 05/06/2023 8:11 Acute lymphoblastic AM CDT leukemia IMMUNOGLOBULIN G Routine 05/06/2023 8:11 Acute lymphoblastic R esults for AM CDT leukemia this procedure are in the results section. IMMUNOGLOBULIN M Routine 05/06/2023 8:11 Acute lymphoblastic R esults for AM CDT leukemia this procedure are in the results section. IMMUNOGLOBULIN A Routine 05/06/2023 8:11 Acute lymphoblastic R esults for AM CDT leukemia this procedure are in the results section. MAGNESIUM LEVEL Routine 05/06/2023 8:11 Acute lymphoblastic Re sults for AM CDT leukemia this procedure are in the results section. ELECTROLYTE PANEL Routine 05/06/2023 8:11 Acute lymphoblastic Results for AM CDT leukemia this procedure are in the results section. ALANINE Routine 05/06/2023 8:11 Acute lymphoblastic Resul ts for AMINOTRANSFERASE AM CDT leukemia this proced ure are in the results section. LACTATE DEHYDROGENASE Routine 05/06/2023 8:11 Acute lymphoblas tic Results for AM CDT leukemia this procedure are in the results section. ALKALINE PHOSPHATASE Routine 05/06/2023 8:11 Acute lymphoblast ic Results for AM CDT leukemia this procedure are in the results section. FRACTIONATED BILIRUBIN Routine 05/06/2023 8:11 Acute lymphobla stic Results for AM CDT leukemia this procedure are in the results section. URIC ACID Routine 05/06/2023 8:11 Acute lymphoblastic Resul ts for AM CDT leukemia this procedure are in the results section. CREATININE Routine 05/06/2023 8:11 Acute lymphoblastic AM CDT leukemia BLOOD UREA NITROGEN Routine 05/06/2023 8:11 Acute lymphoblasti c Results for AM CDT leukemia this procedure are in the results section. GLUCOSE, RANDOM Routine 05/06/2023 8:11 Acute lymphoblastic Re sults for AM CDT leukemia this procedure are in the results section. PHOSPHORUS LEVEL Routine 05/06/2023 8:11 Acute lymphoblastic R esults for AM CDT leukemia this procedure are in the results section. CALCIUM LEVEL Routine 05/06/2023 8:11 Acute lymphoblastic Resu lts for AM CDT leukemia this procedure are in the results section. ALBUMIN LEVEL Routine 05/06/2023 8:11 Acute lymphoblastic Resu lts for AM CDT leukemia this procedure are in the results section. TOTAL PROTEIN Routine 05/06/2023 8:11 Acute lymphoblastic Resu lts for AM CDT leukemia this procedure are in the results section. MRI BRAIN W WO CONTRAST Routine 04/23/2023 11:28 Acute lymphob lastic Results for AM CDT leukemia this procedure are in the results section. CLOT EXPIRATION DATE Routine 02/25/2023 9:46 Resu lts for AM CDT this procedure are in the results section. TMP INTERPRETATION Routine 02/25/2023 9:46 Result s for ANTIBODY SCREEN AM CDT this procedu re NEGATIVE are in the results section. ANTIBODY SCREEN Routine 02/25/2023 9:46 Acute lymphoblastic Re sults for AM CDT leukemia not having this pro cedure achieved remission are in th e results section. ABORH Routine 02/25/2023 9:46 Acute lymphoblastic Resul ts for AM CDT leukemia not having this pro cedure achieved remission are in th e results section. DIFFERENTIAL Routine 02/25/2023 9:46 Acute lymphoblastic Resul ts for AM CDT leukemia not having this pro cedure achieved remission are in th e results section. .CBC Routine 02/25/2023 9:46 Acute lymphoblastic Resul ts for AM CDT leukemia not having this pro cedure achieved remission are in th e results section. .GLOMERULAR FILTRATION Routine 02/25/2023 9:46 Acute lymphobla stic Results for RATE AM CDT leukemia not having this pro cedure achieved remission are in th e results section. SERUM CREATININE Routine 02/25/2023 9:46 Acute lymphoblastic R esults for AM CDT leukemia not having this pro cedure achieved remission are in th e results section. 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 IMMUNOGLOBULIN M Routine 02/25/2023 9:46 Acute lymphoblastic R esults for AM CDT leukemia not having this pro cedure achieved remission are in th e results section. IMMUNOGLOBULIN A Routine 02/25/2023 9:46 Acute lymphoblastic R esults for AM CDT leukemia not having this pro cedure achieved remission are in th e results section. MAGNESIUM LEVEL Routine 02/25/2023 9:46 Acute lymphoblastic Re sults for AM CDT leukemia not having this pro cedure achieved remission are in th e results section. ELECTROLYTE PANEL Routine 02/25/2023 9:46 Acute lymphoblastic Results for AM CDT leukemia not having this pro cedure achieved remission are in th e results section. ALANINE Routine 02/25/2023 9:46 Acute lymphoblastic Resul ts for AMINOTRANSFERASE AM CDT leukemia not having this procedure achieved remission are in th e results section. LACTATE DEHYDROGENASE Routine 02/25/2023 9:46 Acute lymphoblas tic Results for AM CDT leukemia not having this pro cedure achieved remission are in th e results section. ALKALINE PHOSPHATASE Routine 02/25/2023 9:46 Acute lymphoblast ic Results for AM CDT leukemia not having this pro cedure achieved remission are in th e results section. FRACTIONATED BILIRUBIN Routine 02/25/2023 9:46 Acute lymphobla stic Results for AM CDT leukemia not having this pro cedure achieved remission are in th e results section. URIC ACID Routine 02/25/2023 9:46 Acute lymphoblastic Resul ts for AM CDT leukemia not having this pro cedure achieved remission are in th e results section. 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 GLUCOSE, RANDOM Routine 02/25/2023 9:46 Acute lymphoblastic Re sults for AM CDT leukemia not having this pro cedure achieved remission are in th e results section. PHOSPHORUS LEVEL Routine 02/25/2023 9:46 Acute lymphoblastic R esults for AM CDT leukemia not having this pro cedure achieved remission are in th e results section. CALCIUM LEVEL Routine 02/25/2023 9:46 Acute lymphoblastic Resu lts for AM CDT leukemia not having this pro cedure achieved remission are in th e results section. ALBUMIN LEVEL Routine 02/25/2023 9:46 Acute lymphoblastic Resu lts for AM CDT leukemia not having this pro cedure achieved remission are in th e results section. TOTAL PROTEIN Routine 02/25/2023 9:46 Acute lymphoblastic Resu lts for AM CDT leukemia not having this pro cedure achieved remission are in th e results section. CLOT EXPIRATION DATE Routine 02/05/2023 9:17 Resu lts for AM CDT this procedure are in the results section. TMP INTERPRETATION Routine 02/05/2023 9:17 Result s for ANTIBODY SCREEN AM CDT this procedu re NEGATIVE are in the results section. .GLOMERULAR FILTRATION Routine 02/05/2023 9:17 Acute lymphobla stic Results for RATE AM CDT leukemia not having this pro cedure achieved remission are in th e results section. SERUM CREATININE Routine 02/05/2023 9:17 Acute lymphoblastic R esults for AM CDT leukemia not having this pro cedure achieved remission are in th e results section. DIFFERENTIAL STAT 02/05/2023 9:17 Acute lymphoblastic Resul ts for AM CDT leukemia not having this pro cedure achieved remission are in th e results section. .CBC STAT 02/05/2023 9:17 Acute lymphoblastic Resul ts for AM CDT leukemia not having this pro cedure achieved remission are in th e results section. ANTIBODY SCREEN Routine 02/05/2023 9:17 Acute lymphoblastic Re sults for AM CDT leukemia not having this pro cedure achieved remission are in th e results section. ABORH Routine 02/05/2023 9:17 Acute lymphoblastic Resul ts for AM CDT leukemia not having this pro cedure achieved remission are in th e results section. MAGNESIUM LEVEL Routine 02/05/2023 9:17 Acute lymphoblastic Re sults for AM CDT leukemia not having this pro cedure achieved remission are in th e results section. ELECTROLYTE PANEL Routine 02/05/2023 9:17 Acute lymphoblastic Results for AM CDT leukemia not having this pro cedure achieved remission are in th e results section. ALANINE Routine 02/05/2023 9:17 Acute lymphoblastic Resul ts for AMINOTRANSFERASE AM CDT leukemia not having this procedure achieved remission are in th e results section. LACTATE DEHYDROGENASE Routine 02/05/2023 9:17 Acute lymphoblas tic Results for AM CDT leukemia not having this pro cedure achieved remission are in th e results section. ALKALINE PHOSPHATASE Routine 02/05/2023 9:17 Acute lymphoblast ic Results for AM CDT leukemia not having this pro cedure achieved remission are in th e results section. FRACTIONATED BILIRUBIN Routine 02/05/2023 9:17 Acute lymphobla stic Results for AM CDT leukemia not having this pro cedure achieved remission are in th e results section. URIC ACID Routine 02/05/2023 9:17 Acute lymphoblastic Resul ts for AM CDT leukemia not having this pro cedure achieved remission are in th e results section. 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 GLUCOSE, RANDOM Routine 02/05/2023 9:17 Acute lymphoblastic Re sults for AM CDT leukemia not having this pro cedure achieved remission are in th e results section. PHOSPHORUS LEVEL Routine 02/05/2023 9:17 Acute lymphoblastic R esults for AM CDT leukemia not having this pro cedure achieved remission are in th e results section. CALCIUM LEVEL Routine 02/05/2023 9:17 Acute lymphoblastic Resu lts for AM CDT leukemia not having this pro cedure achieved remission are in th e results section. ALBUMIN LEVEL Routine 02/05/2023 9:17 Acute lymphoblastic Resu lts for AM CDT leukemia not having this pro cedure achieved remission are in th e results section. TOTAL PROTEIN Routine 02/05/2023 9:17 Acute lymphoblastic Resu lts for AM CDT leukemia not having this pro cedure achieved remission are in th e results section. 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 ADAPTIVE CLONOSEQ-SEND Routine 01/22/2023 4:04 Acute lymphobla stic Results for OUT, PERIPHERAL BLOOD PM CDT leukemia not having this procedure achieved remission are in th e results section. HP T(9;22) BCR/ABL1 Routine 01/21/2023 9:58 QUANTITATIVE PCR AM CDT INTERPRETATION AND REPORT TMP INTERPRETATION Routine 01/21/2023 9:58 Result s for ANTIBODY SCREEN AM CDT this procedu re NEGATIVE are in the results section. CLOT EXPIRATION DATE Routine 01/21/2023 9:58 Resu lts for AM CDT this procedure are in the results section. ANTIBODY SCREEN Routine 01/21/2023 9:58 Acute lymphoblastic Re sults for AM CDT leukemia this procedure are in the results section. ABORH Routine 01/21/2023 9:58 Acute lymphoblastic Resul ts for AM CDT leukemia this procedure are in the results section. DIFFERENTIAL STAT 01/21/2023 9:58 Acute lymphoblastic Resul ts for AM CDT leukemia this procedure are in the results section. .CBC STAT 01/21/2023 9:58 Acute lymphoblastic Resul ts for AM CDT leukemia this procedure are in the results section. .GLOMERULAR FILTRATION Routine 01/21/2023 9:58 Acute lymphobla stic Results for RATE AM CDT leukemia this procedure are in the results section. SERUM CREATININE Routine 01/21/2023 9:58 Acute lymphoblastic R esults for AM CDT leukemia this procedure are in the results section. COMPLETE BLOOD COUNT W/ Routine 01/21/2023 9:58 Acute lymphobl astic DIFFERENTIAL AM CDT leukemia TYPE AND SCREEN Routine 01/21/2023 9:58 Acute lymphoblastic AM CDT leukemia IMMUNOGLOBULIN G Routine 01/21/2023 9:58 Acute lymphoblastic R esults for AM CDT leukemia this procedure are in the results section. IMMUNOGLOBULIN M Routine 01/21/2023 9:58 Acute lymphoblastic R esults for AM CDT leukemia this procedure are in the results section. IMMUNOGLOBULIN A Routine 01/21/2023 9:58 Acute lymphoblastic R esults for AM CDT leukemia this procedure are in the results section. MAGNESIUM LEVEL Routine 01/21/2023 9:58 Acute lymphoblastic Re sults for AM CDT leukemia this procedure are in the results section. ELECTROLYTE PANEL Routine 01/21/2023 9:58 Acute lymphoblastic Results for AM CDT leukemia this procedure are in the results section. ALANINE Routine 01/21/2023 9:58 Acute lymphoblastic Resul ts for AMINOTRANSFERASE AM CDT leukemia this proced ure are in the results section. LACTATE DEHYDROGENASE Routine 01/21/2023 9:58 Acute lymphoblas tic Results for AM CDT leukemia this procedure are in the results section. ALKALINE PHOSPHATASE Routine 01/21/2023 9:58 Acute lymphoblast ic Results for AM CDT leukemia this procedure are in the results section. FRACTIONATED BILIRUBIN Routine 01/21/2023 9:58 Acute lymphobla stic Results for AM CDT leukemia this procedure are in the results section. URIC ACID Routine 01/21/2023 9:58 Acute lymphoblastic Resul ts for AM CDT leukemia this procedure are in the results section. CREATININE Routine 01/21/2023 9:58 Acute lymphoblastic AM CDT leukemia BLOOD UREA NITROGEN Routine 01/21/2023 9:58 Acute lymphoblasti c Results for AM CDT leukemia this procedure are in the results section. GLUCOSE, RANDOM Routine 01/21/2023 9:58 Acute lymphoblastic Re sults for AM CDT leukemia this procedure are in the results section. PHOSPHORUS LEVEL Routine 01/21/2023 9:58 Acute lymphoblastic R esults for AM CDT leukemia this procedure are in the results section. CALCIUM LEVEL Routine 01/21/2023 9:58 Acute lymphoblastic Resu lts for AM CDT leukemia this procedure are in the results section. ALBUMIN LEVEL Routine 01/21/2023 9:58 Acute lymphoblastic Resu lts for AM CDT leukemia this procedure are in the results section. TOTAL PROTEIN Routine 01/21/2023 9:58 Acute lymphoblastic Resu lts for AM CDT leukemia this procedure are in the results section. HP T(9;22) BCR/ABL1 Routine 01/21/2023 9:58 Acute lymphobla stic Results for QUANTITATIVE PCR AM CDT leukemia this proced ure COLLECTION, BLOOD are in the results section. ANION GAP AM 01/17/2023 3:16 Results for AM CDT this procedure are in the results section. .GLOMERULAR FILTRATION AM 01/17/2023 3:16 Re sults for RATE AM CDT this procedure are in the results section. SERUM CREATININE AM 01/17/2023 3:16 Results for AM CDT this procedure are in the results section. DIFFERENTIAL AM 01/17/2023 3:16 Results for AM CDT this procedure are in the results section. .CBC AM 01/17/2023 3:16 Results for AM CDT this procedure are in the results section. URIC ACID AM 01/17/2023 3:16 Results for AM CDT this procedure are in the results section. ASPARTATE AM 01/17/2023 3:16 Results for AMINOTRANSFERASE AM CDT this proced ure are in the results section. ALANINE AM 01/17/2023 3:16 Results for AMINOTRANSFERASE AM CDT this proced ure are in the results section. ALKALINE PHOSPHATASE AM 01/17/2023 3:16 Resu lts for AM CDT this procedure are in the results section. FRACTIONATED BILIRUBIN AM 01/17/2023 3:16 Re sults for AM CDT this procedure are in the results section. PHOSPHORUS LEVEL AM 01/17/2023 3:16 Results for AM CDT this procedure are in the results section. ALBUMIN LEVEL AM 01/17/2023 3:16 Results for AM CDT this procedure are in the results section. TOTAL PROTEIN AM 01/17/2023 3:16 Results for AM CDT this procedure are in the results section. CARBON DIOXIDE LEVEL AM 01/17/2023 3:16 Resu lts for AM CDT this procedure are in the results section. CHLORIDE LEVEL AM 01/17/2023 3:16 Results fo r AM CDT this procedure are in the results section. MAGNESIUM LEVEL AM 01/17/2023 3:16 Results f or AM CDT this procedure are in the results section. POTASSIUM LEVEL AM 01/17/2023 3:16 Results f or AM CDT this procedure are in the results section. SODIUM LEVEL AM 01/17/2023 3:16 Results for AM CDT this procedure are in the results section. CREATININE AM 01/17/2023 3:16 AM CDT BLOOD UREA NITROGEN AM 01/17/2023 3:16 Resul ts for AM CDT this procedure are in the results section. CALCIUM LEVEL AM 01/17/2023 3:16 Results for AM CDT this procedure are in the results section. GLUCOSE, RANDOM AM 01/17/2023 3:16 Results f or AM CDT this procedure are in the results section. LACTATE DEHYDROGENASE AM 01/17/2023 3:16 Res ults for AM CDT this procedure are in the results section. COMPLETE BLOOD COUNT W/ AM 01/17/2023 3:16 DIFFERENTIAL AM CDT BLOOD CULTURE Routine 01/17/2023 3:16 Results for AM CDT this procedure are in the results section. MRI ORBITS W WO STAT 01/17/2023 2:47 Results f or CONTRAST AM CDT this procedure are in the results section. ANION GAP AM 01/16/2023 2:41 Results for AM CDT this procedure are in the results section. .GLOMERULAR FILTRATION AM 01/16/2023 2:41 Re sults for RATE AM CDT this procedure are in the results section. SERUM CREATININE AM 01/16/2023 2:41 Results for AM CDT this procedure are in the results section. DIFFERENTIAL AM 01/16/2023 2:41 Results for AM CDT this procedure are in the results section. .CBC AM 01/16/2023 2:41 Results for AM CDT this procedure are in the results section. URIC ACID AM 01/16/2023 2:41 Results for AM CDT this procedure are in the results section. ASPARTATE AM 01/16/2023 2:41 Results for AMINOTRANSFERASE AM CDT this proced ure are in the results section. ALANINE AM 01/16/2023 2:41 Results for AMINOTRANSFERASE AM CDT this proced ure are in the results section. ALKALINE PHOSPHATASE AM 01/16/2023 2:41 Resu lts for AM CDT this procedure are in the results section. FRACTIONATED BILIRUBIN AM 01/16/2023 2:41 Re sults for AM CDT this procedure are in the results section. PHOSPHORUS LEVEL AM 01/16/2023 2:41 Results for AM CDT this procedure are in the results section. ALBUMIN LEVEL AM 01/16/2023 2:41 Results for AM CDT this procedure are in the results section. TOTAL PROTEIN AM 01/16/2023 2:41 Results for AM CDT this procedure are in the results section. CARBON DIOXIDE LEVEL AM 01/16/2023 2:41 Resu lts for AM CDT this procedure are in the results section. CHLORIDE LEVEL AM 01/16/2023 2:41 Results fo r AM CDT this procedure are in the results section. MAGNESIUM LEVEL AM 01/16/2023 2:41 Results f or AM CDT this procedure are in the results section. POTASSIUM LEVEL AM 01/16/2023 2:41 Results f or AM CDT this procedure are in the results section. SODIUM LEVEL AM 01/16/2023 2:41 Results for AM CDT this procedure are in the results section. CREATININE AM 01/16/2023 2:41 AM CDT BLOOD UREA NITROGEN AM 01/16/2023 2:41 Resul ts for AM CDT this procedure are in the results section. CALCIUM LEVEL AM 01/16/2023 2:41 Results for AM CDT this procedure are in the results section. GLUCOSE, RANDOM AM 01/16/2023 2:41 Results f or AM CDT this procedure are in the results section. LACTATE DEHYDROGENASE AM 01/16/2023 2:41 Res ults for AM CDT this procedure are in the results section. COMPLETE BLOOD COUNT W/ AM 01/16/2023 2:41 DIFFERENTIAL AM CDT ANION GAP AM 01/15/2023 2:45 Results for AM CDT this procedure are in the results section. .GLOMERULAR FILTRATION AM 01/15/2023 2:45 Re sults for RATE AM CDT this procedure are in the results section. SERUM CREATININE AM 01/15/2023 2:45 Results for AM CDT this procedure are in the results section. DIFFERENTIAL AM 01/15/2023 2:45 Results for AM CDT this procedure are in the results section. .CBC AM 01/15/2023 2:45 Results for AM CDT this procedure are in the results section. URIC ACID AM 01/15/2023 2:45 Results for AM CDT this procedure are in the results section. ASPARTATE AM 01/15/2023 2:45 Results for AMINOTRANSFERASE AM CDT this proced ure are in the results section. ALANINE AM 01/15/2023 2:45 Results for AMINOTRANSFERASE AM CDT this proced ure are in the results section. ALKALINE PHOSPHATASE AM 01/15/2023 2:45 Resu lts for AM CDT this procedure are in the results section. FRACTIONATED BILIRUBIN AM 01/15/2023 2:45 Re sults for AM CDT this procedure are in the results section. PHOSPHORUS LEVEL AM 01/15/2023 2:45 Results for AM CDT this procedure are in the results section. ALBUMIN LEVEL AM 01/15/2023 2:45 Results for AM CDT this procedure are in the results section. TOTAL PROTEIN AM 01/15/2023 2:45 Results for AM CDT this procedure are in the results section. CARBON DIOXIDE LEVEL AM 01/15/2023 2:45 Resu lts for AM CDT this procedure are in the results section. CHLORIDE LEVEL AM 01/15/2023 2:45 Results fo r AM CDT this procedure are in the results section. MAGNESIUM LEVEL AM 01/15/2023 2:45 Results f or AM CDT this procedure are in the results section. POTASSIUM LEVEL AM 01/15/2023 2:45 Results f or AM CDT this procedure are in the results section. SODIUM LEVEL AM 01/15/2023 2:45 Results for AM CDT this procedure are in the results section. CREATININE AM 01/15/2023 2:45 AM CDT BLOOD UREA NITROGEN AM 01/15/2023 2:45 Resul ts for AM CDT this procedure are in the results section. CALCIUM LEVEL AM 01/15/2023 2:45 Results for AM CDT this procedure are in the results section. GLUCOSE, RANDOM AM 01/15/2023 2:45 Results f or AM CDT this procedure are in the results section. LACTATE DEHYDROGENASE AM 01/15/2023 2:45 Res ults for AM CDT this procedure are in the results section. COMPLETE BLOOD COUNT W/ AM 01/15/2023 2:45 DIFFERENTIAL AM CDT TMP INTERPRETATION Routine 01/14/2023 9:37 Result s for ANTIBODY SCREEN PM CDT this procedu re NEGATIVE are in the results section. CLOT EXPIRATION DATE Routine 01/14/2023 9:37 Resu lts for PM CDT this procedure are in the results section. ANTIBODY SCREEN Routine 01/14/2023 9:37 Results f or PM CDT this procedure are in the results section. ABORH Routine 01/14/2023 9:37 Results for PM CDT this procedure are in the results section. TYPE AND SCREEN Routine 01/14/2023 9:37 PM CDT FIBRINOGEN Routine 01/14/2023 9:37 Results for PM CDT this procedure are in the results section. D DIMER Routine 01/14/2023 9:37 Results for PM CDT this procedure are in the results section. APTT Routine 01/14/2023 9:37 Results for PM CDT this procedure are in the results section. PROTHROMBIN TIME Routine 01/14/2023 9:37 Results for PM CDT this procedure are in the results section. 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 HP FC CAR19 ([id number]) Routine 01/13/2023 1:38 FINAL REPORT PM CDT HP FC FLOW CYTOMETRY Routine 01/13/2023 1:38 Resu lts for BLOOD COLLECTION PM CDT this proced ure are in the results section. HP FC CAR19 ([id number]) Routine 01/13/2023 1:38 Resul ts for COLLECTION, NONBLOOD PM CDT this pr ocedure are in the results section. 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 ANION GAP AM 01/13/2023 12:56 Results for AM CDT this procedure are in the results section. .GLOMERULAR FILTRATION AM 01/13/2023 12:56 R esults for RATE AM CDT this procedure are in the results section. SERUM CREATININE AM 01/13/2023 12:56 Results for AM CDT this procedure are in the results section. DIFFERENTIAL AM 01/13/2023 12:56 Results for AM CDT this procedure are in the results section. .CBC AM 01/13/2023 12:56 Results for AM CDT this procedure are in the results section. CREATINE KINASE Routine 01/13/2023 12:56 Results for AM CDT this procedure are in the results section. URIC ACID AM 01/13/2023 12:56 Results for AM CDT this procedure are in the results section. ASPARTATE AM 01/13/2023 12:56 Results for AMINOTRANSFERASE AM CDT this proced ure are in the results section. ALANINE AM 01/13/2023 12:56 Results for AMINOTRANSFERASE AM CDT this proced ure are in the results section. ALKALINE PHOSPHATASE AM 01/13/2023 12:56 Res ults for AM CDT this procedure are in the results section. FRACTIONATED BILIRUBIN AM 01/13/2023 12:56 R esults for AM CDT this procedure are in the results section. PHOSPHORUS LEVEL AM 01/13/2023 12:56 Results for AM CDT this procedure are in the results section. ALBUMIN LEVEL AM 01/13/2023 12:56 Results fo r AM CDT this procedure are in the results section. TOTAL PROTEIN AM 01/13/2023 12:56 Results fo r AM CDT this procedure are in the results section. CARBON DIOXIDE LEVEL AM 01/13/2023 12:56 Res ults for AM CDT this procedure are in the results section. CHLORIDE LEVEL AM 01/13/2023 12:56 Results f or AM CDT this procedure are in the results section. MAGNESIUM LEVEL AM 01/13/2023 12:56 Results for AM CDT this procedure are in the results section. POTASSIUM LEVEL AM 01/13/2023 12:56 Results for AM CDT this procedure are in the results section. SODIUM LEVEL AM 01/13/2023 12:56 Results for AM CDT this procedure are in the results section. CREATININE AM 01/13/2023 12:56 AM CDT BLOOD UREA NITROGEN AM 01/13/2023 12:56 Resu lts for AM CDT this procedure are in the results section. CALCIUM LEVEL AM 01/13/2023 12:56 Results fo r AM CDT this procedure are in the results section. GLUCOSE, RANDOM AM 01/13/2023 12:56 Results for AM CDT this procedure are in the results section. LACTATE DEHYDROGENASE AM 01/13/2023 12:56 Re sults for AM CDT this procedure are in the results section. COMPLETE BLOOD COUNT W/ AM 01/13/2023 12:56 DIFFERENTIAL AM CDT TRANSFUSE RED BLOOD Routine 01/12/2023 5:20 CELLS PM CDT PRBC PRODUCT READY FOR Routine 01/12/2023 3:15 Re sults for METAL FENCE ERECTOR PM CDT this procedure are in the results section. PREPARE RBC Routine 01/12/2023 3:15 Results for PM CDT this procedure are in the results section. TMP CROSSMATCH Routine 01/12/2023 4:27 Results fo r INTERPRETATION AM CDT this procedur e are in the results section. TMP INTERPRETATION Routine 01/12/2023 4:27 Result s for ANTIBODY SCREEN AM CDT this procedu re NEGATIVE are in the results section. CLOT EXPIRATION DATE Routine 01/12/2023 4:27 Resu lts for AM CDT this procedure are in the results section. ANION GAP AM 01/12/2023 4:27 Results for AM CDT this procedure are in the results section. .GLOMERULAR FILTRATION AM 01/12/2023 4:27 Re sults for RATE AM CDT this procedure are in the results section. SERUM CREATININE AM 01/12/2023 4:27 Results for AM CDT this procedure are in the results section. DIFFERENTIAL AM 01/12/2023 4:27 Results for AM CDT this procedure are in the results section. .CBC AM 01/12/2023 4:27 Results for AM CDT this procedure are in the results section. ANTIBODY SCREEN Routine 01/12/2023 4:27 Results f or AM CDT this procedure are in the results section. ABORH Routine 01/12/2023 4:27 Results for AM CDT this procedure are in the results section. FIBRINOGEN Routine 01/12/2023 4:27 Results for AM CDT this procedure are in the results section. D DIMER Routine 01/12/2023 4:27 Results for AM CDT this procedure are in the results section. APTT Routine 01/12/2023 4:27 Results for AM CDT this procedure are in the results section. PROTHROMBIN TIME Routine 01/12/2023 4:27 Results for AM CDT this procedure are in the results section. URIC ACID AM 01/12/2023 4:27 Results for AM CDT this procedure are in the results section. ASPARTATE AM 01/12/2023 4:27 Results for AMINOTRANSFERASE AM CDT this proced ure are in the results section. ALANINE AM 01/12/2023 4:27 Results for AMINOTRANSFERASE AM CDT this proced ure are in the results section. ALKALINE PHOSPHATASE AM 01/12/2023 4:27 Resu lts for AM CDT this procedure are in the results section. FRACTIONATED BILIRUBIN AM 01/12/2023 4:27 Re sults for AM CDT this procedure are in the results section. PHOSPHORUS LEVEL AM 01/12/2023 4:27 Results for AM CDT this procedure are in the results section. ALBUMIN LEVEL AM 01/12/2023 4:27 Results for AM CDT this procedure are in the results section. TOTAL PROTEIN AM 01/12/2023 4:27 Results for AM CDT this procedure are in the results section. CARBON DIOXIDE LEVEL AM 01/12/2023 4:27 Resu lts for AM CDT this procedure are in the results section. CHLORIDE LEVEL AM 01/12/2023 4:27 Results fo r AM CDT this procedure are in the results section. MAGNESIUM LEVEL AM 01/12/2023 4:27 Results f or AM CDT this procedure are in the results section. POTASSIUM LEVEL AM 01/12/2023 4:27 Results f or AM CDT this procedure are in the results section. SODIUM LEVEL AM 01/12/2023 4:27 Results for AM CDT this procedure are in the results section. CREATININE AM 01/12/2023 4:27 AM CDT BLOOD UREA NITROGEN AM 01/12/2023 4:27 Resul ts for AM CDT this procedure are in the results section. CALCIUM LEVEL AM 01/12/2023 4:27 Results for AM CDT this procedure are in the results section. GLUCOSE, RANDOM AM 01/12/2023 4:27 Results f or AM CDT this procedure are in the results section. LACTATE DEHYDROGENASE AM 01/12/2023 4:27 Res ults for AM CDT this procedure are in the results section. COMPLETE BLOOD COUNT W/ AM 01/12/2023 4:27 DIFFERENTIAL AM CDT TYPE AND SCREEN Routine 01/12/2023 4:27 AM CDT ANION GAP AM 01/11/2023 3:29 Results for AM CDT this procedure are in the results section. .GLOMERULAR FILTRATION AM 01/11/2023 3:29 Re sults for RATE AM CDT this procedure are in the results section. SERUM CREATININE AM 01/11/2023 3:29 Results for AM CDT this procedure are in the results section. DIFFERENTIAL AM 01/11/2023 3:29 Results for AM CDT this procedure are in the results section. .CBC AM 01/11/2023 3:29 Results for AM CDT this procedure are in the results section. URIC ACID AM 01/11/2023 3:29 Results for AM CDT this procedure are in the results section. ASPARTATE AM 01/11/2023 3:29 Results for AMINOTRANSFERASE AM CDT this proced ure are in the results section. ALANINE AM 01/11/2023 3:29 Results for AMINOTRANSFERASE AM CDT this proced ure are in the results section. ALKALINE PHOSPHATASE AM 01/11/2023 3:29 Resu lts for AM CDT this procedure are in the results section. FRACTIONATED BILIRUBIN AM 01/11/2023 3:29 Re sults for AM CDT this procedure are in the results section. PHOSPHORUS LEVEL AM 01/11/2023 3:29 Results for AM CDT this procedure are in the results section. ALBUMIN LEVEL AM 01/11/2023 3:29 Results for AM CDT this procedure are in the results section. TOTAL PROTEIN AM 01/11/2023 3:29 Results for AM CDT this procedure are in the results section. CARBON DIOXIDE LEVEL AM 01/11/2023 3:29 Resu lts for AM CDT this procedure are in the results section. CHLORIDE LEVEL AM 01/11/2023 3:29 Results fo r AM CDT this procedure are in the results section. MAGNESIUM LEVEL AM 01/11/2023 3:29 Results f or AM CDT this procedure are in the results section. POTASSIUM LEVEL AM 01/11/2023 3:29 Results f or AM CDT this procedure are in the results section. SODIUM LEVEL AM 01/11/2023 3:29 Results for AM CDT this procedure are in the results section. CREATININE AM 01/11/2023 3:29 AM CDT BLOOD UREA NITROGEN AM 01/11/2023 3:29 Resul ts for AM CDT this procedure are in the results section. CALCIUM LEVEL AM 01/11/2023 3:29 Results for AM CDT this procedure are in the results section. GLUCOSE, RANDOM AM 01/11/2023 3:29 Results f or AM CDT this procedure are in the results section. LACTATE DEHYDROGENASE AM 01/11/2023 3:29 Res ults for AM CDT this procedure are in the results section. COMPLETE BLOOD COUNT W/ AM 01/11/2023 3:29 DIFFERENTIAL AM CDT ADENOVIRUS QUANT PCR, Routine 01/11/2023 3:29 Res ults for PLASMA AM CDT this procedure are in the results section. TRANSFUSE PLATELETS Routine 01/10/2023 3:36 PM CDT TMP EXCEPTION STAT 01/10/2023 3:27 Results for PM CDT this procedure are in the results section. PLT PRODUCT READY FOR Routine 01/10/2023 6:15 Res ults for METAL FENCE ERECTOR AM CDT this procedure are in the results section. PREPARE PLATELETS Routine 01/10/2023 6:15 Results for AM CDT this procedure are in the results section. ANION GAP AM 01/10/2023 3:52 Results for AM CDT this procedure are in the results section. .GLOMERULAR FILTRATION AM 01/10/2023 3:52 Re sults for RATE AM CDT this procedure are in the results section. SERUM CREATININE AM 01/10/2023 3:52 Results for AM CDT this procedure are in the results section. DIFFERENTIAL AM 01/10/2023 3:52 Results for AM CDT this procedure are in the results section. .CBC AM 01/10/2023 3:52 Results for AM CDT this procedure are in the results section. URIC ACID AM 01/10/2023 3:52 Results for AM CDT this procedure are in the results section. ASPARTATE AM 01/10/2023 3:52 Results for AMINOTRANSFERASE AM CDT this proced ure are in the results section. ALANINE AM 01/10/2023 3:52 Results for AMINOTRANSFERASE AM CDT this proced ure are in the results section. ALKALINE PHOSPHATASE AM 01/10/2023 3:52 Resu lts for AM CDT this procedure are in the results section. FRACTIONATED BILIRUBIN AM 01/10/2023 3:52 Re sults for AM CDT this procedure are in the results section. PHOSPHORUS LEVEL AM 01/10/2023 3:52 Results for AM CDT this procedure are in the results section. ALBUMIN LEVEL AM 01/10/2023 3:52 Results for AM CDT this procedure are in the results section. TOTAL PROTEIN AM 01/10/2023 3:52 Results for AM CDT this procedure are in the results section. CARBON DIOXIDE LEVEL AM 01/10/2023 3:52 Resu lts for AM CDT this procedure are in the results section. CHLORIDE LEVEL AM 01/10/2023 3:52 Results fo r AM CDT this procedure are in the results section. MAGNESIUM LEVEL AM 01/10/2023 3:52 Results f or AM CDT this procedure are in the results section. POTASSIUM LEVEL AM 01/10/2023 3:52 Results f or AM CDT this procedure are in the results section. SODIUM LEVEL AM 01/10/2023 3:52 Results for AM CDT this procedure are in the results section. CREATININE AM 01/10/2023 3:52 AM CDT BLOOD UREA NITROGEN AM 01/10/2023 3:52 Resul ts for AM CDT this procedure are in the results section. CALCIUM LEVEL AM 01/10/2023 3:52 Results for AM CDT this procedure are in the results section. GLUCOSE, RANDOM AM 01/10/2023 3:52 Results f or AM CDT this procedure are in the results section. LACTATE DEHYDROGENASE AM 01/10/2023 3:52 Res ults for AM CDT this procedure are in the results section. COMPLETE BLOOD COUNT W/ AM 01/10/2023 3:52 DIFFERENTIAL AM CDT TRANSFUSE PLATELETS Routine 01/09/2023 9:55 AM CDT PLT PRODUCT READY FOR Routine 01/09/2023 4:28 Res ults for METAL FENCE ERECTOR AM CDT this procedure are in the results section. PREPARE PLATELETS Routine 01/09/2023 4:28 Results for AM CDT this procedure are in the results section. TMP INTERPRETATION Routine 01/09/2023 4:02 Result s for ANTIBODY SCREEN AM CDT this procedu re NEGATIVE are in the results section. CLOT EXPIRATION DATE Routine 01/09/2023 4:02 Resu lts for AM CDT this procedure are in the results section. ANION GAP AM 01/09/2023 4:02 Results for AM CDT this procedure are in the results section. .GLOMERULAR FILTRATION AM 01/09/2023 4:02 Re sults for RATE AM CDT this procedure are in the results section. SERUM CREATININE AM 01/09/2023 4:02 Results for AM CDT this procedure are in the results section. DIFFERENTIAL AM 01/09/2023 4:02 Results for AM CDT this procedure are in the results section. .CBC AM 01/09/2023 4:02 Results for AM CDT this procedure are in the results section. ANTIBODY SCREEN Routine 01/09/2023 4:02 Results f or AM CDT this procedure are in the results section. ABORH Routine 01/09/2023 4:02 Results for AM CDT this procedure are in the results section. FIBRINOGEN Routine 01/09/2023 4:02 Results for AM CDT this procedure are in the results section. D DIMER Routine 01/09/2023 4:02 Results for AM CDT this procedure are in the results section. APTT Routine 01/09/2023 4:02 Results for AM CDT this procedure are in the results section. PROTHROMBIN TIME Routine 01/09/2023 4:02 Results for AM CDT this procedure are in the results section. URIC ACID AM 01/09/2023 4:02 Results for AM CDT this procedure are in the results section. ASPARTATE AM 01/09/2023 4:02 Results for AMINOTRANSFERASE AM CDT this proced ure are in the results section. ALANINE AM 01/09/2023 4:02 Results for AMINOTRANSFERASE AM CDT this proced ure are in the results section. ALKALINE PHOSPHATASE AM 01/09/2023 4:02 Resu lts for AM CDT this procedure are in the results section. FRACTIONATED BILIRUBIN AM 01/09/2023 4:02 Re sults for AM CDT this procedure are in the results section. PHOSPHORUS LEVEL AM 01/09/2023 4:02 Results for AM CDT this procedure are in the results section. ALBUMIN LEVEL AM 01/09/2023 4:02 Results for AM CDT this procedure are in the results section. TOTAL PROTEIN AM 01/09/2023 4:02 Results for AM CDT this procedure are in the results section. CARBON DIOXIDE LEVEL AM 01/09/2023 4:02 Resu lts for AM CDT this procedure are in the results section. CHLORIDE LEVEL AM 01/09/2023 4:02 Results fo r AM CDT this procedure are in the results section. MAGNESIUM LEVEL AM 01/09/2023 4:02 Results f or AM CDT this procedure are in the results section. POTASSIUM LEVEL AM 01/09/2023 4:02 Results f or AM CDT this procedure are in the results section. SODIUM LEVEL AM 01/09/2023 4:02 Results for AM CDT this procedure are in the results section. CREATININE AM 01/09/2023 4:02 AM CDT BLOOD UREA NITROGEN AM 01/09/2023 4:02 Resul ts for AM CDT this procedure are in the results section. CALCIUM LEVEL AM 01/09/2023 4:02 Results for AM CDT this procedure are in the results section. GLUCOSE, RANDOM AM 01/09/2023 4:02 Results f or AM CDT this procedure are in the results section. LACTATE DEHYDROGENASE AM 01/09/2023 4:02 Res ults for AM CDT this procedure are in the results section. COMPLETE BLOOD COUNT W/ AM 01/09/2023 4:02 DIFFERENTIAL AM CDT TYPE AND SCREEN Routine 01/09/2023 4:02 AM CDT TRANSFUSE RED BLOOD Routine 01/08/2023 5:40 CELLS AM CDT PRBC PRODUCT READY FOR Routine 01/08/2023 3:59 Re sults for METAL FENCE ERECTOR AM CDT this procedure are in the results section. PREPARE RBC Routine 01/08/2023 3:59 Results for AM CDT this procedure are in the results section. PRBC PRODUCT READY FOR Routine 01/08/2023 3:45 Re sults for METAL FENCE ERECTOR AM CDT this procedure are in the results section. PREPARE RBC Routine 01/08/2023 3:45 Results for AM CDT this procedure are in the results section. ANION GAP AM 01/08/2023 2:43 Results for AM CDT this procedure are in the results section. .GLOMERULAR FILTRATION AM 01/08/2023 2:43 Re sults for RATE AM CDT this procedure are in the results section. SERUM CREATININE AM 01/08/2023 2:43 Results for AM CDT this procedure are in the results section. DIFFERENTIAL AM 01/08/2023 2:43 Results for AM CDT this procedure are in the results section. .CBC AM 01/08/2023 2:43 Results for AM CDT this procedure are in the results section. URIC ACID AM 01/08/2023 2:43 Results for AM CDT this procedure are in the results section. ASPARTATE AM 01/08/2023 2:43 Results for AMINOTRANSFERASE AM CDT this proced ure are in the results section. ALANINE AM 01/08/2023 2:43 Results for AMINOTRANSFERASE AM CDT this proced ure are in the results section. ALKALINE PHOSPHATASE AM 01/08/2023 2:43 Resu lts for AM CDT this procedure are in the results section. FRACTIONATED BILIRUBIN AM 01/08/2023 2:43 Re sults for AM CDT this procedure are in the results section. PHOSPHORUS LEVEL AM 01/08/2023 2:43 Results for AM CDT this procedure are in the results section. ALBUMIN LEVEL AM 01/08/2023 2:43 Results for AM CDT this procedure are in the results section. TOTAL PROTEIN AM 01/08/2023 2:43 Results for AM CDT this procedure are in the results section. CARBON DIOXIDE LEVEL AM 01/08/2023 2:43 Resu lts for AM CDT this procedure are in the results section. CHLORIDE LEVEL AM 01/08/2023 2:43 Results fo r AM CDT this procedure are in the results section. MAGNESIUM LEVEL AM 01/08/2023 2:43 Results f or AM CDT this procedure are in the results section. POTASSIUM LEVEL AM 01/08/2023 2:43 Results f or AM CDT this procedure are in the results section. SODIUM LEVEL AM 01/08/2023 2:43 Results for AM CDT this procedure are in the results section. CREATININE AM 01/08/2023 2:43 AM CDT BLOOD UREA NITROGEN AM 01/08/2023 2:43 Resul ts for AM CDT this procedure are in the results section. CALCIUM LEVEL AM 01/08/2023 2:43 Results for AM CDT this procedure are in the results section. GLUCOSE, RANDOM AM 01/08/2023 2:43 Results f or AM CDT this procedure are in the results section. LACTATE DEHYDROGENASE AM 01/08/2023 2:43 Res ults for AM CDT this procedure are in the results section. COMPLETE BLOOD COUNT W/ AM 01/08/2023 2:43 DIFFERENTIAL AM CDT TRANSFUSE PLATELETS Routine 01/07/2023 12:08 PM CDT PLT PRODUCT READY FOR Routine 01/07/2023 6:57 Res ults for METAL FENCE ERECTOR AM CDT this procedure are in the results section. PREPARE PLATELETS Routine 01/07/2023 6:57 Results for AM CDT this procedure are in the results section. DIFFERENTIAL CANCEL AM 01/07/2023 5:03 Resul ts for AM CDT this procedure are in the results section. ANION GAP AM 01/07/2023 5:03 Results for AM CDT this procedure are in the results section. .GLOMERULAR FILTRATION AM 01/07/2023 5:03 Re sults for RATE AM CDT this procedure are in the results section. SERUM CREATININE AM 01/07/2023 5:03 Results for AM CDT this procedure are in the results section. .CBC AM 01/07/2023 5:03 Results for AM CDT this procedure are in the results section. URIC ACID AM 01/07/2023 5:03 Results for AM CDT this procedure are in the results section. ASPARTATE AM 01/07/2023 5:03 Results for AMINOTRANSFERASE AM CDT this proced ure are in the results section. ALANINE AM 01/07/2023 5:03 Results for AMINOTRANSFERASE AM CDT this proced ure are in the results section. ALKALINE PHOSPHATASE AM 01/07/2023 5:03 Resu lts for AM CDT this procedure are in the results section. FRACTIONATED BILIRUBIN AM 01/07/2023 5:03 Re sults for AM CDT this procedure are in the results section. PHOSPHORUS LEVEL AM 01/07/2023 5:03 Results for AM CDT this procedure are in the results section. ALBUMIN LEVEL AM 01/07/2023 5:03 Results for AM CDT this procedure are in the results section. TOTAL PROTEIN AM 01/07/2023 5:03 Results for AM CDT this procedure are in the results section. CARBON DIOXIDE LEVEL AM 01/07/2023 5:03 Resu lts for AM CDT this procedure are in the results section. CHLORIDE LEVEL AM 01/07/2023 5:03 Results fo r AM CDT this procedure are in the results section. MAGNESIUM LEVEL AM 01/07/2023 5:03 Results f or AM CDT this procedure are in the results section. POTASSIUM LEVEL AM 01/07/2023 5:03 Results f or AM CDT this procedure are in the results section. SODIUM LEVEL AM 01/07/2023 5:03 Results for AM CDT this procedure are in the results section. CREATININE AM 01/07/2023 5:03 AM CDT BLOOD UREA NITROGEN AM 01/07/2023 5:03 Resul ts for AM CDT this procedure are in the results section. CALCIUM LEVEL AM 01/07/2023 5:03 Results for AM CDT this procedure are in the results section. GLUCOSE, RANDOM AM 01/07/2023 5:03 Results f or AM CDT this procedure are in the results section. LACTATE DEHYDROGENASE AM 01/07/2023 5:03 Res ults for AM CDT this procedure are in the results section. COMPLETE BLOOD COUNT W/ AM 01/07/2023 5:03 DIFFERENTIAL AM CDT MRI ORBITS W WO STAT 01/07/2023 4:48 Results f or CONTRAST AM CDT this procedure are in the results section. URINALYSIS MICROSCOPIC Routine 01/06/2023 2:50 Re sults for EXAM PM CDT this procedure are in the results section. URINALYSIS WITH Routine 01/06/2023 2:50 Results f or MICROSCOPIC IF PM CDT this procedur e INDICATED are in the results section. BLOOD CULTURE Routine 01/06/2023 1:44 Results for PM CDT this procedure are in the results section. IMMUNOGLOBULIN G Routine 01/06/2023 12:31 Results for PM CDT this procedure are in the results section. MRSA SCREENING CULTURE Routine 01/06/2023 12:31 R esults for PM CDT this procedure are in the results section. HSV/VZV DNA DETECTION Routine 01/06/2023 11:22 Re sults for AM CDT this procedure are in the results section. EXTERNAL PHOTOGRAPHY - Routine 01/06/2023 10:48 Pain in eye R esults for OD - RIGHT EYE AM CDT this procedur e are in the results section. DIFFERENTIAL CANCEL AM 01/06/2023 1:54 Resul ts for AM CDT this procedure are in the results section. ANION GAP AM 01/06/2023 1:54 Results for AM CDT this procedure are in the results section. .GLOMERULAR FILTRATION AM 01/06/2023 1:54 Re sults for RATE AM CDT this procedure are in the results section. SERUM CREATININE AM 01/06/2023 1:54 Results for AM CDT this procedure are in the results section. .CBC AM 01/06/2023 1:54 Results for AM CDT this procedure are in the results section. CREATINE KINASE Routine 01/06/2023 1:54 Results f or AM CDT this procedure are in the results section. FIBRINOGEN Routine 01/06/2023 1:54 Results for AM CDT this procedure are in the results section. D DIMER Routine 01/06/2023 1:54 Results for AM CDT this procedure are in the results section. APTT Routine 01/06/2023 1:54 Results for AM CDT this procedure are in the results section. PROTHROMBIN TIME Routine 01/06/2023 1:54 Results for AM CDT this procedure are in the results section. URIC ACID AM 01/06/2023 1:54 Results for AM CDT this procedure are in the results section. ASPARTATE AM 01/06/2023 1:54 Results for AMINOTRANSFERASE AM CDT this proced ure are in the results section. ALANINE AM 01/06/2023 1:54 Results for AMINOTRANSFERASE AM CDT this proced ure are in the results section. ALKALINE PHOSPHATASE AM 01/06/2023 1:54 Resu lts for AM CDT this procedure are in the results section. FRACTIONATED BILIRUBIN AM 01/06/2023 1:54 Re sults for AM CDT this procedure are in the results section. PHOSPHORUS LEVEL AM 01/06/2023 1:54 Results for AM CDT this procedure are in the results section. ALBUMIN LEVEL AM 01/06/2023 1:54 Results for AM CDT this procedure are in the results section. TOTAL PROTEIN AM 01/06/2023 1:54 Results for AM CDT this procedure are in the results section. CARBON DIOXIDE LEVEL AM 01/06/2023 1:54 Resu lts for AM CDT this procedure are in the results section. CHLORIDE LEVEL AM 01/06/2023 1:54 Results fo r AM CDT this procedure are in the results section. MAGNESIUM LEVEL AM 01/06/2023 1:54 Results f or AM CDT this procedure are in the results section. POTASSIUM LEVEL AM 01/06/2023 1:54 Results f or AM CDT this procedure are in the results section. SODIUM LEVEL AM 01/06/2023 1:54 Results for AM CDT this procedure are in the results section. CREATININE AM 01/06/2023 1:54 AM CDT BLOOD UREA NITROGEN AM 01/06/2023 1:54 Resul ts for AM CDT this procedure are in the results section. CALCIUM LEVEL AM 01/06/2023 1:54 Results for AM CDT this procedure are in the results section. GLUCOSE, RANDOM AM 01/06/2023 1:54 Results f or AM CDT this procedure are in the results section. LACTATE DEHYDROGENASE AM 01/06/2023 1:54 Res ults for AM CDT this procedure are in the results section. COMPLETE BLOOD COUNT W/ AM 01/06/2023 1:54 DIFFERENTIAL AM CDT ADENOVIRUS QUANT PCR, Routine 01/06/2023 1:54 Res ults for PLASMA AM CDT this procedure are in the results section. TRANSFUSE RED BLOOD Routine 01/05/2023 4:40 CELLS PM CDT RESPIRATORY MULTIPLEX Routine 01/05/2023 1:02 Res ults for PCR PANEL, PM CDT this procedure NASOPHARYNGEAL SWAB are in t he results section. TRANSFUSE PLATELETS Routine 01/05/2023 12:05 PM CDT PREPARE RBC Routine 01/05/2023 8:04 Results for AM CDT this procedure are in the results section. TMP CROSSMATCH STAT 01/05/2023 5:41 Results fo r INTERPRETATION AM CDT this procedur e are in the results section. TMP INTERPRETATION STAT 01/05/2023 5:41 Result s for ANTIBODY SCREEN AM CDT this procedu re NEGATIVE are in the results section. CLOT EXPIRATION DATE STAT 01/05/2023 5:41 Resu lts for AM CDT this procedure are in the results section. ANTIBODY SCREEN STAT 01/05/2023 5:41 Results f or AM CDT this procedure are in the results section. ABORH STAT 01/05/2023 5:41 Results for AM CDT this procedure are in the results section. TYPE AND SCREEN STAT 01/05/2023 5:41 AM CDT PLT PRODUCT READY FOR Routine 01/05/2023 4:54 Res ults for METAL FENCE ERECTOR AM CDT this procedure are in the results section. PREPARE PLATELETS Routine 01/05/2023 4:54 Results for AM CDT this procedure are in the results section. PRBC PRODUCT READY FOR Routine 01/05/2023 4:53 Re sults for METAL FENCE ERECTOR AM CDT this procedure are in the results section. PREPARE RBC Routine 01/05/2023 4:53 Results for AM CDT this procedure are in the results section. CT ORBITS SELLA POS Routine 01/05/2023 2:36 Resul ts for FOSSA EAR W CONTRAST AM CDT this pr ocedure are in the results section. BLOOD CULTURE Routine 01/05/2023 1:15 Results for AM CDT this procedure are in the results section. DIFFERENTIAL CANCEL STAT 01/05/2023 1:14 Resul ts for AM CDT this procedure are in the results section. FRACTIONATED BILIRUBIN Routine 01/05/2023 1:14 Re sults for AM CDT this procedure are in the results section. TOTAL PROTEIN Routine 01/05/2023 1:14 Results for AM CDT this procedure are in the results section. ASPARTATE Routine 01/05/2023 1:14 Results for AMINOTRANSFERASE AM CDT this proced ure are in the results section. ALANINE Routine 01/05/2023 1:14 Results for AMINOTRANSFERASE AM CDT this proced ure are in the results section. ALKALINE PHOSPHATASE Routine 01/05/2023 1:14 Resu lts for AM CDT this procedure are in the results section. ALBUMIN LEVEL Routine 01/05/2023 1:14 Results for AM CDT this procedure are in the results section. CALCIUM LEVEL Routine 01/05/2023 1:14 Results for AM CDT this procedure are in the results section. .GLOMERULAR FILTRATION Routine 01/05/2023 1:14 Re sults for RATE AM CDT this procedure are in the results section. SERUM CREATININE Routine 01/05/2023 1:14 Results for AM CDT this procedure are in the results section. ELECTROLYTE PANEL Routine 01/05/2023 1:14 Results for AM CDT this procedure are in the results section. BLOOD UREA NITROGEN Routine 01/05/2023 1:14 Resul ts for AM CDT this procedure are in the results section. GLUCOSE LEVEL Routine 01/05/2023 1:14 Results for AM CDT this procedure are in the results section. .CBC STAT 01/05/2023 1:14 Results for AM CDT this procedure are in the results section. APTT Routine 01/05/2023 1:14 Results for AM CDT this procedure are in the results section. PROTHROMBIN TIME Routine 01/05/2023 1:14 Results for AM CDT this procedure are in the results section. PHOSPHORUS LEVEL Routine 01/05/2023 1:14 Results for AM CDT this procedure are in the results section. MAGNESIUM LEVEL Routine 01/05/2023 1:14 Results f or AM CDT this procedure are in the results section. COMPREHENSIVE METABOLIC Routine 01/05/2023 1:14 PANEL AM CDT COMPLETE BLOOD COUNT W/ Routine 01/05/2023 1:14 DIFFERENTIAL AM CDT BLOOD CULTURE Routine 01/05/2023 1:14 Results for AM CDT this procedure are in the results section. HP FC MRD B ALL LIMITED Routine 12/31/2022 2:42 INTERPRETATION AND PM CDT REPORT HP FC FLOW CYTOMETRY Routine 12/31/2022 2:42 Resu lts for BLOOD COLLECTION PM CDT this proced ure are in the results section. 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 CYTOLOGY NON-RISK MANAGEMENT PROFESSIONAL Routine 12/31/2022 2:40 Acute lymphoblastic R esults for INTERPRETATION PM CDT leukemia not having this p rocedure achieved remission are in th e results section. 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 TMP INTERPRETATION Routine 12/31/2022 12:01 Resul ts for ANTIBODY SCREEN PM CDT this procedu re NEGATIVE are in the results section. CLOT EXPIRATION DATE Routine 12/31/2022 12:01 Res ults for PM CDT this procedure are in the results section. .GLOMERULAR FILTRATION Routine 12/31/2022 12:01 Acute lymphobl astic Results for RATE PM CDT leukemia not having this pro cedure achieved remission are in th e results section. 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 ANTIBODY SCREEN Routine 12/31/2022 12:01 Acute lymphoblastic R esults for PM CDT leukemia not having this pro cedure achieved remission are in th e results section. ABORH Routine 12/31/2022 12:01 Acute lymphoblastic Resu lts for PM CDT leukemia not having this pro cedure achieved remission are in th e results section. DIFFERENTIAL STAT 12/31/2022 12:01 Acute lymphoblastic Resu lts for PM CDT leukemia not having this pro cedure achieved remission are in th e results section. .CBC STAT 12/31/2022 12:01 Acute lymphoblastic Resu lts for PM CDT leukemia not having this pro cedure achieved remission are in th e results section. 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 ALANINE Routine 12/31/2022 12:01 Acute lymphoblastic Resu lts for AMINOTRANSFERASE PM CDT leukemia not having this procedure achieved remission are in th e results section. LACTATE DEHYDROGENASE Routine 12/31/2022 12:01 Acute lymphobla stic Results for PM CDT leukemia not having this pro cedure achieved remission are in th e results section. ALKALINE PHOSPHATASE Routine 12/31/2022 12:01 Acute lymphoblas tic Results for PM CDT leukemia not having this pro cedure achieved remission are in th e results section. 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 URIC ACID Routine 12/31/2022 12:01 Acute lymphoblastic Resu lts for PM CDT leukemia not having this pro cedure achieved remission are in th e results section. 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 GLUCOSE, RANDOM Routine 12/31/2022 12:01 Acute lymphoblastic R esults for PM CDT leukemia not having this pro cedure achieved remission are in th e results section. 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 CALCIUM LEVEL Routine 12/31/2022 12:01 Acute lymphoblastic Res ults for PM CDT leukemia not having this pro cedure achieved remission are in th e results section. ALBUMIN LEVEL Routine 12/31/2022 12:01 Acute lymphoblastic Res ults for PM CDT leukemia not having this pro cedure achieved remission are in th e results section. TOTAL PROTEIN Routine 12/31/2022 12:01 Acute lymphoblastic Res ults for PM CDT leukemia not having this pro cedure achieved remission are in th e results section. 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 METHOTREXATE LEVEL - Routine 12/29/2022 9:17 Resu lts for RANDOM AM CDT this procedure are in the results section. DIFFERENTIAL AM 12/29/2022 12:50 Results for AM CDT this procedure are in the results section. .CBC AM 12/29/2022 12:50 Results for AM CDT this procedure are in the results section. CALCIUM LEVEL AM 12/29/2022 12:50 Results fo r AM CDT this procedure are in the results section. .GLOMERULAR FILTRATION AM 12/29/2022 12:50 R esults for RATE AM CDT this procedure are in the results section. SERUM CREATININE AM 12/29/2022 12:50 Results for AM CDT this procedure are in the results section. ELECTROLYTE PANEL AM 12/29/2022 12:50 Result s for AM CDT this procedure are in the results section. BLOOD UREA NITROGEN AM 12/29/2022 12:50 Resu lts for AM CDT this procedure are in the results section. URIC ACID AM 12/29/2022 12:50 Results for AM CDT this procedure are in the results section. ASPARTATE AM 12/29/2022 12:50 Results for AMINOTRANSFERASE AM CDT this proced ure are in the results section. ALANINE AM 12/29/2022 12:50 Results for AMINOTRANSFERASE AM CDT this proced ure are in the results section. ALKALINE PHOSPHATASE AM 12/29/2022 12:50 Res ults for AM CDT this procedure are in the results section. FRACTIONATED BILIRUBIN AM 12/29/2022 12:50 R esults for AM CDT this procedure are in the results section. ALBUMIN LEVEL AM 12/29/2022 12:50 Results fo r AM CDT this procedure are in the results section. TOTAL PROTEIN AM 12/29/2022 12:50 Results fo r AM CDT this procedure are in the results section. GLUCOSE, RANDOM AM 12/29/2022 12:50 Results for AM CDT this procedure are in the results section. LACTATE DEHYDROGENASE AM 12/29/2022 12:50 Re sults for AM CDT this procedure are in the results section. COMPLETE BLOOD COUNT W/ AM 12/29/2022 12:50 DIFFERENTIAL AM CDT PHOSPHORUS LEVEL AM 12/29/2022 12:50 Results for AM CDT this procedure are in the results section. MAGNESIUM LEVEL AM 12/29/2022 12:50 Results for AM CDT this procedure are in the results section. BASIC METABOLIC PANEL, AM 12/29/2022 12:50 CALCIUM TOTAL AM CDT POC URINE PH Routine 12/28/2022 9:42 Results for PM CDT this procedure are in the results section. MTX 24HR POST INFUSION Timed Study 12/28/2022 9:27 Re sults for PM CDT this procedure are in the results section. POC URINE PH Routine 12/28/2022 4:44 Results for PM CDT this procedure are in the results section. POC URINE PH Routine 12/28/2022 8:05 Results for AM CDT this procedure are in the results section. DIFFERENTIAL AM 12/28/2022 4:44 Results for AM CDT this procedure are in the results section. .CBC AM 12/28/2022 4:44 Results for AM CDT this procedure are in the results section. CALCIUM LEVEL AM 12/28/2022 4:44 Results for AM CDT this procedure are in the results section. .GLOMERULAR FILTRATION AM 12/28/2022 4:44 Re sults for RATE AM CDT this procedure are in the results section. SERUM CREATININE AM 12/28/2022 4:44 Results for AM CDT this procedure are in the results section. ELECTROLYTE PANEL AM 12/28/2022 4:44 Results for AM CDT this procedure are in the results section. BLOOD UREA NITROGEN AM 12/28/2022 4:44 Resul ts for AM CDT this procedure are in the results section. URIC ACID AM 12/28/2022 4:44 Results for AM CDT this procedure are in the results section. ASPARTATE AM 12/28/2022 4:44 Results for AMINOTRANSFERASE AM CDT this proced ure are in the results section. ALANINE AM 12/28/2022 4:44 Results for AMINOTRANSFERASE AM CDT this proced ure are in the results section. ALKALINE PHOSPHATASE AM 12/28/2022 4:44 Resu lts for AM CDT this procedure are in the results section. FRACTIONATED BILIRUBIN AM 12/28/2022 4:44 Re sults for AM CDT this procedure are in the results section. ALBUMIN LEVEL AM 12/28/2022 4:44 Results for AM CDT this procedure are in the results section. TOTAL PROTEIN AM 12/28/2022 4:44 Results for AM CDT this procedure are in the results section. GLUCOSE, RANDOM AM 12/28/2022 4:44 Results f or AM CDT this procedure are in the results section. LACTATE DEHYDROGENASE AM 12/28/2022 4:44 Res ults for AM CDT this procedure are in the results section. COMPLETE BLOOD COUNT W/ AM 12/28/2022 4:44 DIFFERENTIAL AM CDT PHOSPHORUS LEVEL AM 12/28/2022 4:44 Results for AM CDT this procedure are in the results section. MAGNESIUM LEVEL AM 12/28/2022 4:44 Results f or AM CDT this procedure are in the results section. BASIC METABOLIC PANEL, AM 12/28/2022 4:44 CALCIUM TOTAL AM CDT POC URINE PH Routine 12/27/2022 10:01 Results for PM CDT this procedure are in the results section. MTX ZERO HOUR LEVEL Timed Study 12/27/2022 10:01 Resu lts for PM CDT this procedure are in the results section. POC URINE PH Routine 12/27/2022 7:44 Results for AM CDT this procedure are in the results section. TMP INTERPRETATION Routine 12/27/2022 5:11 Result s for ANTIBODY SCREEN AM CDT this procedu re NEGATIVE are in the results section. CLOT EXPIRATION DATE Routine 12/27/2022 5:11 Resu lts for AM CDT this procedure are in the results section. DIFFERENTIAL AM 12/27/2022 5:11 Results for AM CDT this procedure are in the results section. .CBC AM 12/27/2022 5:11 Results for AM CDT this procedure are in the results section. CALCIUM LEVEL AM 12/27/2022 5:11 Results for AM CDT this procedure are in the results section. .GLOMERULAR FILTRATION AM 12/27/2022 5:11 Re sults for RATE AM CDT this procedure are in the results section. SERUM CREATININE AM 12/27/2022 5:11 Results for AM CDT this procedure are in the results section. ELECTROLYTE PANEL AM 12/27/2022 5:11 Results for AM CDT this procedure are in the results section. BLOOD UREA NITROGEN AM 12/27/2022 5:11 Resul ts for AM CDT this procedure are in the results section. FIBRINOGEN Routine 12/27/2022 5:11 Results for AM CDT this procedure are in the results section. D DIMER Routine 12/27/2022 5:11 Results for AM CDT this procedure are in the results section. APTT Routine 12/27/2022 5:11 Results for AM CDT this procedure are in the results section. PROTHROMBIN TIME Routine 12/27/2022 5:11 Results for AM CDT this procedure are in the results section. URIC ACID AM 12/27/2022 5:11 Results for AM CDT this procedure are in the results section. ASPARTATE AM 12/27/2022 5:11 Results for AMINOTRANSFERASE AM CDT this proced ure are in the results section. ALANINE AM 12/27/2022 5:11 Results for AMINOTRANSFERASE AM CDT this proced ure are in the results section. ALKALINE PHOSPHATASE AM 12/27/2022 5:11 Resu lts for AM CDT this procedure are in the results section. FRACTIONATED BILIRUBIN AM 12/27/2022 5:11 Re sults for AM CDT this procedure are in the results section. ALBUMIN LEVEL AM 12/27/2022 5:11 Results for AM CDT this procedure are in the results section. TOTAL PROTEIN AM 12/27/2022 5:11 Results for AM CDT this procedure are in the results section. GLUCOSE, RANDOM AM 12/27/2022 5:11 Results f or AM CDT this procedure are in the results section. LACTATE DEHYDROGENASE AM 12/27/2022 5:11 Res ults for AM CDT this procedure are in the results section. COMPLETE BLOOD COUNT W/ AM 12/27/2022 5:11 DIFFERENTIAL AM CDT PHOSPHORUS LEVEL AM 12/27/2022 5:11 Results for AM CDT this procedure are in the results section. MAGNESIUM LEVEL AM 12/27/2022 5:11 Results f or AM CDT this procedure are in the results section. BASIC METABOLIC PANEL, AM 12/27/2022 5:11 CALCIUM TOTAL AM CDT ANTIBODY SCREEN Routine 12/27/2022 5:11 Results f or AM CDT this procedure are in the results section. ABORH Routine 12/27/2022 5:11 Results for AM CDT this procedure are in the results section. TYPE AND SCREEN Routine 12/27/2022 5:11 AM CDT POC URINE PH Routine 12/27/2022 12:40 Results for AM CDT this procedure are in the results section. POC URINE PH Routine 12/26/2022 6:24 Results for PM CDT this procedure are in the results section. VERIFY CATHETER TIP Routine 12/26/2022 2:55 Encounter for Resu lts for PLACEMENT PM CDT adjustment and this procedur e management of are in the vascular access results device section. XR CHEST 2 VW POST Routine 12/26/2022 2:07 Result s for IMPLANT PM CDT this procedure are in the results section. INSERT VASCULAR ACCESS Routine 12/26/2022 11:50 Encounter for Results for DEVICE AM CDT adjustment and this procedur e management of are in the vascular access results device section. VASCULAR ACCESS Routine 12/26/2022 9:56 Results f or ULTRASOUND AM CDT this procedure are in the results section. DIFFERENTIAL AM 12/26/2022 2:42 Results for AM CDT this procedure are in the results section. .CBC AM 12/26/2022 2:42 Results for AM CDT this procedure are in the results section. CALCIUM LEVEL AM 12/26/2022 2:42 Results for AM CDT this procedure are in the results section. .GLOMERULAR FILTRATION AM 12/26/2022 2:42 Re sults for RATE AM CDT this procedure are in the results section. SERUM CREATININE AM 12/26/2022 2:42 Results for AM CDT this procedure are in the results section. ELECTROLYTE PANEL AM 12/26/2022 2:42 Results for AM CDT this procedure are in the results section. BLOOD UREA NITROGEN AM 12/26/2022 2:42 Resul ts for AM CDT this procedure are in the results section. URIC ACID AM 12/26/2022 2:42 Results for AM CDT this procedure are in the results section. ASPARTATE AM 12/26/2022 2:42 Results for AMINOTRANSFERASE AM CDT this proced ure are in the results section. ALANINE AM 12/26/2022 2:42 Results for AMINOTRANSFERASE AM CDT this proced ure are in the results section. ALKALINE PHOSPHATASE AM 12/26/2022 2:42 Resu lts for AM CDT this procedure are in the results section. FRACTIONATED BILIRUBIN AM 12/26/2022 2:42 Re sults for AM CDT this procedure are in the results section. ALBUMIN LEVEL AM 12/26/2022 2:42 Results for AM CDT this procedure are in the results section. TOTAL PROTEIN AM 12/26/2022 2:42 Results for AM CDT this procedure are in the results section. GLUCOSE, RANDOM AM 12/26/2022 2:42 Results f or AM CDT this procedure are in the results section. LACTATE DEHYDROGENASE AM 12/26/2022 2:42 Res ults for AM CDT this procedure are in the results section. COMPLETE BLOOD COUNT W/ AM 12/26/2022 2:42 DIFFERENTIAL AM CDT PHOSPHORUS LEVEL AM 12/26/2022 2:42 Results for AM CDT this procedure are in the results section. MAGNESIUM LEVEL AM 12/26/2022 2:42 Results f or AM CDT this procedure are in the results section. BASIC METABOLIC PANEL, AM 12/26/2022 2:42 CALCIUM TOTAL AM CDT DIFFERENTIAL AM 12/25/2022 3:13 Results for AM CDT this procedure are in the results section. .CBC AM 12/25/2022 3:13 Results for AM CDT this procedure are in the results section. CALCIUM LEVEL AM 12/25/2022 3:13 Results for AM CDT this procedure are in the results section. .GLOMERULAR FILTRATION AM 12/25/2022 3:13 Re sults for RATE AM CDT this procedure are in the results section. SERUM CREATININE AM 12/25/2022 3:13 Results for AM CDT this procedure are in the results section. ELECTROLYTE PANEL AM 12/25/2022 3:13 Results for AM CDT this procedure are in the results section. BLOOD UREA NITROGEN AM 12/25/2022 3:13 Resul ts for AM CDT this procedure are in the results section. URIC ACID AM 12/25/2022 3:13 Results for AM CDT this procedure are in the results section. ASPARTATE AM 12/25/2022 3:13 Results for AMINOTRANSFERASE AM CDT this proced ure are in the results section. ALANINE AM 12/25/2022 3:13 Results for AMINOTRANSFERASE AM CDT this proced ure are in the results section. ALKALINE PHOSPHATASE AM 12/25/2022 3:13 Resu lts for AM CDT this procedure are in the results section. FRACTIONATED BILIRUBIN AM 12/25/2022 3:13 Re sults for AM CDT this procedure are in the results section. ALBUMIN LEVEL AM 12/25/2022 3:13 Results for AM CDT this procedure are in the results section. TOTAL PROTEIN AM 12/25/2022 3:13 Results for AM CDT this procedure are in the results section. GLUCOSE, RANDOM AM 12/25/2022 3:13 Results f or AM CDT this procedure are in the results section. LACTATE DEHYDROGENASE AM 12/25/2022 3:13 Res ults for AM CDT this procedure are in the results section. COMPLETE BLOOD COUNT W/ AM 12/25/2022 3:13 DIFFERENTIAL AM CDT PHOSPHORUS LEVEL AM 12/25/2022 3:13 Results for AM CDT this procedure are in the results section. MAGNESIUM LEVEL AM 12/25/2022 3:13 Results f or AM CDT this procedure are in the results section. BASIC METABOLIC PANEL, AM 12/25/2022 3:13 CALCIUM TOTAL AM CDT DIFFERENTIAL AM 12/24/2022 2:43 Results for AM CDT this procedure are in the results section. .CBC AM 12/24/2022 2:43 Results for AM CDT this procedure are in the results section. CALCIUM LEVEL AM 12/24/2022 2:43 Results for AM CDT this procedure are in the results section. .GLOMERULAR FILTRATION AM 12/24/2022 2:43 Re sults for RATE AM CDT this procedure are in the results section. SERUM CREATININE AM 12/24/2022 2:43 Results for AM CDT this procedure are in the results section. ELECTROLYTE PANEL AM 12/24/2022 2:43 Results for AM CDT this procedure are in the results section. BLOOD UREA NITROGEN AM 12/24/2022 2:43 Resul ts for AM CDT this procedure are in the results section. FIBRINOGEN Routine 12/24/2022 2:43 Results for AM CDT this procedure are in the results section. D DIMER Routine 12/24/2022 2:43 Results for AM CDT this procedure are in the results section. APTT Routine 12/24/2022 2:43 Results for AM CDT this procedure are in the results section. PROTHROMBIN TIME Routine 12/24/2022 2:43 Results for AM CDT this procedure are in the results section. URIC ACID AM 12/24/2022 2:43 Results for AM CDT this procedure are in the results section. ASPARTATE AM 12/24/2022 2:43 Results for AMINOTRANSFERASE AM CDT this proced ure are in the results section. ALANINE AM 12/24/2022 2:43 Results for AMINOTRANSFERASE AM CDT this proced ure are in the results section. ALKALINE PHOSPHATASE AM 12/24/2022 2:43 Resu lts for AM CDT this procedure are in the results section. FRACTIONATED BILIRUBIN AM 12/24/2022 2:43 Re sults for AM CDT this procedure are in the results section. ALBUMIN LEVEL AM 12/24/2022 2:43 Results for AM CDT this procedure are in the results section. TOTAL PROTEIN AM 12/24/2022 2:43 Results for AM CDT this procedure are in the results section. GLUCOSE, RANDOM AM 12/24/2022 2:43 Results f or AM CDT this procedure are in the results section. LACTATE DEHYDROGENASE AM 12/24/2022 2:43 Res ults for AM CDT this procedure are in the results section. COMPLETE BLOOD COUNT W/ AM 12/24/2022 2:43 DIFFERENTIAL AM CDT PHOSPHORUS LEVEL AM 12/24/2022 2:43 Results for AM CDT this procedure are in the results section. MAGNESIUM LEVEL AM 12/24/2022 2:43 Results f or AM CDT this procedure are in the results section. 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 HP FC CAR19 ([id number]) Routine 12/23/2022 2:42 FINAL REPORT PM CDT HP FC FLOW CYTOMETRY Routine 12/23/2022 2:42 Resu lts for BLOOD COLLECTION PM CDT this proced ure are in the results section. HP FC CAR19 ([id number]) Routine 12/23/2022 2:42 Resul ts for COLLECTION, NONBLOOD PM CDT this pr ocedure are in the results section. .CSF DIFF PATH REVIEW Routine 12/23/2022 2:42 Res ults for PM CDT this procedure are in the results section. GLUCOSE CEREBROSPINAL Routine 12/23/2022 2:42 Res ults for FLUID PM CDT this procedure are in the results section. PROTEIN CEREBROSPINAL Routine 12/23/2022 2:42 Res ults for FLUID PM CDT this procedure are in the results section. 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 TMP INTERPRETATION Routine 12/23/2022 11:02 Resul ts for ANTIBODY SCREEN AM CDT this procedu re NEGATIVE are in the results section. CLOT EXPIRATION DATE Routine 12/23/2022 11:02 Res ults for AM CDT this procedure are in the results section. D DIMER Routine 12/23/2022 11:02 Results for AM CDT this procedure are in the results section. PROTHROMBIN TIME Routine 12/23/2022 11:02 Results for AM CDT this procedure are in the results section. FIBRINOGEN Routine 12/23/2022 11:02 Results for AM CDT this procedure are in the results section. APTT Routine 12/23/2022 11:02 Results for AM CDT this procedure are in the results section. ANTIBODY SCREEN Routine 12/23/2022 11:02 Results for AM CDT this procedure are in the results section. ABORH Routine 12/23/2022 11:02 Results for AM CDT this procedure are in the results section. TYPE AND SCREEN Routine 12/23/2022 11:02 AM CDT MRI BRAIN W WO CONTRAST Routine 12/23/2022 8:05 R esults for AM CDT this procedure are in the results section. DIFFERENTIAL Routine 12/22/2022 11:35 Results for PM CDT this procedure are in the results section. .CBC Routine 12/22/2022 11:35 Results for PM CDT this procedure are in the results section. FRACTIONATED BILIRUBIN Routine 12/22/2022 11:35 R esults for PM CDT this procedure are in the results section. TOTAL PROTEIN Routine 12/22/2022 11:35 Results fo r PM CDT this procedure are in the results section. ASPARTATE Routine 12/22/2022 11:35 Results for AMINOTRANSFERASE PM CDT this proced ure are in the results section. ALANINE Routine 12/22/2022 11:35 Results for AMINOTRANSFERASE PM CDT this proced ure are in the results section. ALKALINE PHOSPHATASE Routine 12/22/2022 11:35 Res ults for PM CDT this procedure are in the results section. ALBUMIN LEVEL Routine 12/22/2022 11:35 Results fo r PM CDT this procedure are in the results section. CALCIUM LEVEL Routine 12/22/2022 11:35 Results fo r PM CDT this procedure are in the results section. .GLOMERULAR FILTRATION Routine 12/22/2022 11:35 R esults for RATE PM CDT this procedure are in the results section. SERUM CREATININE Routine 12/22/2022 11:35 Results for PM CDT this procedure are in the results section. ELECTROLYTE PANEL Routine 12/22/2022 11:35 Result s for PM CDT this procedure are in the results section. BLOOD UREA NITROGEN Routine 12/22/2022 11:35 Resu lts for PM CDT this procedure are in the results section. GLUCOSE LEVEL Routine 12/22/2022 11:35 Results fo r PM CDT this procedure are in the results section. C REACTIVE PROTEIN Routine 12/22/2022 11:35 Resul ts for PM CDT this procedure are in the results section. SEDIMENTATION RATE Routine 12/22/2022 11:35 Resul ts for NON-AUTOMATED PM CDT this procedure are in the results section. PHOSPHORUS LEVEL Routine 12/22/2022 11:35 Results for PM CDT this procedure are in the results section. MAGNESIUM LEVEL Routine 12/22/2022 11:35 Results for PM CDT this procedure are in the results section. 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 TRUJILLO VISUAL FIELD, Routine 12/22/2022 2:17 Visual acuity, no Results for INTERMEDIATE - OD - PM CDT light perception this procedure RIGHT EYE are in the results section. TMP INTERPRETATION Routine 12/10/2022 9:54 Result s for ANTIBODY SCREEN AM CDT this procedu re NEGATIVE are in the results section. CLOT EXPIRATION DATE Routine 12/10/2022 9:54 Resu lts for AM CDT this procedure are in the results section. 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 SERUM CREATININE Routine 12/10/2022 9:54 Acute lymphoid Result s for AM CDT leukemia this procedure are in the results section. DIFFERENTIAL STAT 12/10/2022 9:54 Acute lymphoid Results fo r AM CDT leukemia this procedure are in the results section. .CBC STAT 12/10/2022 9:54 Acute lymphoid Results fo r AM CDT leukemia this procedure are in the results section. 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 ABORH Routine 12/10/2022 9:54 Acute lymphoid Results fo r AM CDT leukemia this procedure are in the results section. 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 ELECTROLYTE PANEL Routine 12/10/2022 9:54 Acute lymphoid Resul ts for AM CDT leukemia this procedure are in the results section. ALANINE Routine 12/10/2022 9:54 Acute lymphoid Results fo r AMINOTRANSFERASE AM CDT leukemia this proced ure are in the results section. LACTATE DEHYDROGENASE Routine 12/10/2022 9:54 Acute lymphoid R esults for AM CDT leukemia this procedure are in the results section. ALKALINE PHOSPHATASE Routine 12/10/2022 9:54 Acute lymphoid Re sults for AM CDT leukemia this procedure are in the results section. 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 URIC ACID Routine 12/10/2022 9:54 Acute lymphoid Results fo r AM CDT leukemia this procedure are in the results section. CREATININE Routine 12/10/2022 9:54 Acute lymphoid AM CDT leukemia BLOOD UREA NITROGEN Routine 12/10/2022 9:54 Acute lymphoid Res ults for AM CDT leukemia this procedure are in the results section. 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 PHOSPHORUS LEVEL Routine 12/10/2022 9:54 Acute lymphoid Result s for AM CDT leukemia this procedure are in the results section. CALCIUM LEVEL Routine 12/10/2022 9:54 Acute lymphoid Results f or AM CDT leukemia this procedure are in the results section. ALBUMIN LEVEL Routine 12/10/2022 9:54 Acute lymphoid Results f or AM CDT leukemia this procedure are in the results section. TOTAL PROTEIN Routine 12/10/2022 9:54 Acute lymphoid Results f or AM CDT leukemia this procedure are in the results section. COMPLETE BLOOD COUNT W/ Routine 12/10/2022 9:54 Acute lymphoid DIFFERENTIAL AM CDT leukemia TYPE AND SCREEN Routine 12/10/2022 9:54 Acute lymphoid AM CDT leukemia MRI BRAIN W WO CONTRAST Routine 12/08/2022 4:12 Acute lymphoid Results for PM CDT leukemia this procedure are in the results section. TN THERAPEUTIC SPINAL Routine 12/03/2022 3:39 Acute lymphoblas tic Results for PUNCTURE DRAINAGE CSF PM CDT leukemia not having this procedure achieved remission are in th e results section. HP FC MRD B ALL LIMITED Routine 12/03/2022 1:51 INTERPRETATION AND PM CDT REPORT HP FC FLOW CYTOMETRY Routine 12/03/2022 1:51 Resu lts for BLOOD COLLECTION PM CDT this proced ure are in the results section. HP FC MRD B ALL Routine 12/03/2022 1:51 Acute lymphoblastic Re sults for COLLECTION, NONBLOOD PM CDT leukemia not having this procedure achieved remission are in th e results section. CELL COUNT W/ DIFF Routine 12/03/2022 1:51 Acute lymphoblastic Results for CEREBROSPINAL FLUID PM CDT leukemia not having t his procedure achieved remission are in th e results section. 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 CLOT EXPIRATION DATE Routine 12/03/2022 11:28 Res ults for AM CDT this procedure are in the results section. TMP INTERPRETATION Routine 12/03/2022 11:28 Resul ts for ANTIBODY SCREEN AM CDT this procedu re NEGATIVE are in the results section. 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 SERUM CREATININE Routine 12/03/2022 11:28 Acute lymphoid Resul ts for AM CDT leukemia this procedure are in the results section. ANTIBODY SCREEN Routine 12/03/2022 11:28 Acute lymphoid Result s for AM CDT leukemia this procedure are in the results section. ABORH Routine 12/03/2022 11:28 Acute lymphoid Results f or AM CDT leukemia this procedure are in the results section. DIFFERENTIAL STAT 12/03/2022 11:28 Acute lymphoid Results f or AM CDT leukemia this procedure are in the results section. .CBC STAT 12/03/2022 11:28 Acute lymphoid Results f or AM CDT leukemia this procedure are in the results section. MAGNESIUM LEVEL Routine 12/03/2022 11:28 Acute lymphoid Result s for AM CDT leukemia this procedure are in the results section. ELECTROLYTE PANEL Routine 12/03/2022 11:28 Acute lymphoid Resu lts for AM CDT leukemia this procedure are in the results section. ALANINE Routine 12/03/2022 11:28 Acute lymphoid Results f or AMINOTRANSFERASE AM CDT leukemia this proced ure are in the results section. LACTATE DEHYDROGENASE Routine 12/03/2022 11:28 Acute lymphoid Results for AM CDT leukemia this procedure are in the results section. ALKALINE PHOSPHATASE Routine 12/03/2022 11:28 Acute lymphoid R esults for AM CDT leukemia this procedure are in the results section. FRACTIONATED BILIRUBIN Routine 12/03/2022 11:28 Acute lymphoid Results for AM CDT leukemia this procedure are in the results section. URIC ACID Routine 12/03/2022 11:28 Acute lymphoid Results f or AM CDT leukemia this procedure are in the results section. CREATININE Routine 12/03/2022 11:28 Acute lymphoid AM CDT leukemia BLOOD UREA NITROGEN Routine 12/03/2022 11:28 Acute lymphoid Re sults for AM CDT leukemia this procedure are in the results section. GLUCOSE, RANDOM Routine 12/03/2022 11:28 Acute lymphoid Result s for AM CDT leukemia this procedure are in the results section. PHOSPHORUS LEVEL Routine 12/03/2022 11:28 Acute lymphoid Resul ts for AM CDT leukemia this procedure are in the results section. CALCIUM LEVEL Routine 12/03/2022 11:28 Acute lymphoid Results for AM CDT leukemia this procedure are in the results section. ALBUMIN LEVEL Routine 12/03/2022 11:28 Acute lymphoid Results for AM CDT leukemia this procedure are in the results section. TOTAL PROTEIN Routine 12/03/2022 11:28 Acute lymphoid Results for AM CDT leukemia this procedure are in the results section. COMPLETE BLOOD COUNT W/ Routine 12/03/2022 11:28 Acute lymphoi d DIFFERENTIAL AM CDT leukemia TYPE AND SCREEN Routine 12/03/2022 11:28 Acute lymphoid AM CDT leukemia TRUJILLO VISUAL FIELD, Routine 12/01/2022 2:32 Acute lymphobla stic Results for INTERMEDIATE - OD - PM CDT leukemia this procedure RIGHT EYE Blurring of visual are in th e image results section. OCT, OPTIC NERVE - OU - Routine 12/01/2022 2:28 Acute lymphobl astic Results for BOTH EYES PM CDT leukemia this procedure Blurring of visual are in th e image results section. OCT, RETINA - OU - BOTH Routine 12/01/2022 2:28 Acute lymphobl astic Results for EYES PM CDT leukemia this procedure Blurring of visual are in th e image results section. HP FC CAR19 ([id number]) Routine 11/26/2022 1:20 FINAL REPORT PM CDT HP FC FLOW CYTOMETRY Routine 11/26/2022 1:20 Resu lts for BLOOD COLLECTION PM CDT this proced ure are in the results section. HP FC CAR19 ([id number]) Routine 11/26/2022 1:20 Acute lymphoid Res ults for COLLECTION, NONBLOOD PM CDT leukemia this pr ocedure are in the results section. 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 TMP INTERPRETATION Routine 11/26/2022 11:01 Resul ts for ANTIBODY SCREEN AM CDT this procedu re NEGATIVE are in the results section. CLOT EXPIRATION DATE Routine 11/26/2022 11:01 Res ults for AM CDT this procedure are in the results section. 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 SERUM CREATININE Routine 11/26/2022 11:01 Acute lymphoid Resul ts for AM CDT leukemia this procedure are in the results section. DIFFERENTIAL STAT 11/26/2022 11:01 Acute lymphoid Results f or AM CDT leukemia this procedure are in the results section. .CBC STAT 11/26/2022 11:01 Acute lymphoid Results f or AM CDT leukemia this procedure are in the results section. ANTIBODY SCREEN Routine 11/26/2022 11:01 Acute lymphoid Result s for AM CDT leukemia this procedure are in the results section. ABORH Routine 11/26/2022 11:01 Acute lymphoid Results f or AM CDT leukemia this procedure are in the results section. APTT Routine 11/26/2022 11:01 Acute lymphoid Results f or AM CDT leukemia this procedure are in the results section. PROTHROMBIN TIME Routine 11/26/2022 11:01 Acute lymphoid Resul ts for AM CDT leukemia this procedure are in the results section. MAGNESIUM LEVEL Routine 11/26/2022 11:01 Acute lymphoid Result s for AM CDT leukemia this procedure are in the results section. ELECTROLYTE PANEL Routine 11/26/2022 11:01 Acute lymphoid Resu lts for AM CDT leukemia this procedure are in the results section. ALANINE Routine 11/26/2022 11:01 Acute lymphoid Results f or AMINOTRANSFERASE AM CDT leukemia this proced ure are in the results section. LACTATE DEHYDROGENASE Routine 11/26/2022 11:01 Acute lymphoid Results for AM CDT leukemia this procedure are in the results section. ALKALINE PHOSPHATASE Routine 11/26/2022 11:01 Acute lymphoid R esults for AM CDT leukemia this procedure are in the results section. FRACTIONATED BILIRUBIN Routine 11/26/2022 11:01 Acute lymphoid Results for AM CDT leukemia this procedure are in the results section. URIC ACID Routine 11/26/2022 11:01 Acute lymphoid Results f or AM CDT leukemia this procedure are in the results section. CREATININE Routine 11/26/2022 11:01 Acute lymphoid AM CDT leukemia BLOOD UREA NITROGEN Routine 11/26/2022 11:01 Acute lymphoid Re sults for AM CDT leukemia this procedure are in the results section. GLUCOSE, RANDOM Routine 11/26/2022 11:01 Acute lymphoid Result s for AM CDT leukemia this procedure are in the results section. PHOSPHORUS LEVEL Routine 11/26/2022 11:01 Acute lymphoid Resul ts for AM CDT leukemia this procedure are in the results section. CALCIUM LEVEL Routine 11/26/2022 11:01 Acute lymphoid Results for AM CDT leukemia this procedure are in the results section. ALBUMIN LEVEL Routine 11/26/2022 11:01 Acute lymphoid Results for AM CDT leukemia this procedure are in the results section. TOTAL PROTEIN Routine 11/26/2022 11:01 Acute lymphoid Results for AM CDT leukemia this procedure are in the results section. 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 HP FC CAR19 ([id number]) Routine 11/19/2022 11:16 FINAL REPORT AM CDT HP FC FLOW CYTOMETRY Routine 11/19/2022 11:16 Res ults for BLOOD COLLECTION AM CDT this proced ure are in the results section. HP FC CAR19 ([id number]) Routine 11/19/2022 11:16 Resu lts for COLLECTION, NONBLOOD AM CDT this pr ocedure are in the results section. HP FC ACUTE LEUKEMIA Routine 11/19/2022 11:16 Res ults for SCREEN COLLECTION, AM CDT this proc edure NONBLOOD are in the results section. CELL COUNT W/ DIFF Routine 11/19/2022 11:16 Resul ts for CEREBROSPINAL FLUID AM CDT this pro cedure are in the results section. GLUCOSE CEREBROSPINAL Routine 11/19/2022 11:16 Re sults for FLUID AM CDT this procedure are in the results section. PROTEIN CEREBROSPINAL Routine 11/19/2022 11:16 Re sults for FLUID AM CDT this procedure are in the results section. TN CHEMOTX [facility] 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 REQ Routine 11/19/2022 10:40 Acute lymphob lastic Results for SPINAL PUNCTURE AM CDT leukemia not having this procedure achieved remission are in th e results section. ANION GAP AM 11/19/2022 12:37 Results for AM CDT this procedure are in the results section. .GLOMERULAR FILTRATION AM 11/19/2022 12:37 R esults for RATE AM CDT this procedure are in the results section. SERUM CREATININE AM 11/19/2022 12:37 Results for AM CDT this procedure are in the results section. DIFFERENTIAL AM 11/19/2022 12:37 Results for AM CDT this procedure are in the results section. .CBC AM 11/19/2022 12:37 Results for AM CDT this procedure are in the results section. URIC ACID AM 11/19/2022 12:37 Results for AM CDT this procedure are in the results section. ASPARTATE AM 11/19/2022 12:37 Results for AMINOTRANSFERASE AM CDT this proced ure are in the results section. ALANINE AM 11/19/2022 12:37 Results for AMINOTRANSFERASE AM CDT this proced ure are in the results section. ALKALINE PHOSPHATASE AM 11/19/2022 12:37 Res ults for AM CDT this procedure are in the results section. FRACTIONATED BILIRUBIN AM 11/19/2022 12:37 R esults for AM CDT this procedure are in the results section. PHOSPHORUS LEVEL AM 11/19/2022 12:37 Results for AM CDT this procedure are in the results section. ALBUMIN LEVEL AM 11/19/2022 12:37 Results fo r AM CDT this procedure are in the results section. TOTAL PROTEIN AM 11/19/2022 12:37 Results fo r AM CDT this procedure are in the results section. CARBON DIOXIDE LEVEL AM 11/19/2022 12:37 Res ults for AM CDT this procedure are in the results section. CHLORIDE LEVEL AM 11/19/2022 12:37 Results f or AM CDT this procedure are in the results section. MAGNESIUM LEVEL AM 11/19/2022 12:37 Results for AM CDT this procedure are in the results section. POTASSIUM LEVEL AM 11/19/2022 12:37 Results for AM CDT this procedure are in the results section. SODIUM LEVEL AM 11/19/2022 12:37 Results for AM CDT this procedure are in the results section. CREATININE AM 11/19/2022 12:37 AM CDT BLOOD UREA NITROGEN AM 11/19/2022 12:37 Resu lts for AM CDT this procedure are in the results section. CALCIUM LEVEL AM 11/19/2022 12:37 Results fo r AM CDT this procedure are in the results section. GLUCOSE, RANDOM AM 11/19/2022 12:37 Results for AM CDT this procedure are in the results section. LACTATE DEHYDROGENASE AM 11/19/2022 12:37 Re sults for AM CDT this procedure are in the results section. COMPLETE BLOOD COUNT W/ AM 11/19/2022 12:37 DIFFERENTIAL AM CDT ANION GAP AM 11/18/2022 2:44 Results for AM CDT this procedure are in the results section. .GLOMERULAR FILTRATION AM 11/18/2022 2:44 Re sults for RATE AM CDT this procedure are in the results section. SERUM CREATININE AM 11/18/2022 2:44 Results for AM CDT this procedure are in the results section. DIFFERENTIAL AM 11/18/2022 2:44 Results for AM CDT this procedure are in the results section. .CBC AM 11/18/2022 2:44 Results for AM CDT this procedure are in the results section. URIC ACID AM 11/18/2022 2:44 Results for AM CDT this procedure are in the results section. ASPARTATE AM 11/18/2022 2:44 Results for AMINOTRANSFERASE AM CDT this proced ure are in the results section. ALANINE AM 11/18/2022 2:44 Results for AMINOTRANSFERASE AM CDT this proced ure are in the results section. ALKALINE PHOSPHATASE AM 11/18/2022 2:44 Resu lts for AM CDT this procedure are in the results section. FRACTIONATED BILIRUBIN AM 11/18/2022 2:44 Re sults for AM CDT this procedure are in the results section. PHOSPHORUS LEVEL AM 11/18/2022 2:44 Results for AM CDT this procedure are in the results section. ALBUMIN LEVEL AM 11/18/2022 2:44 Results for AM CDT this procedure are in the results section. TOTAL PROTEIN AM 11/18/2022 2:44 Results for AM CDT this procedure are in the results section. CARBON DIOXIDE LEVEL AM 11/18/2022 2:44 Resu lts for AM CDT this procedure are in the results section. CHLORIDE LEVEL AM 11/18/2022 2:44 Results fo r AM CDT this procedure are in the results section. MAGNESIUM LEVEL AM 11/18/2022 2:44 Results f or AM CDT this procedure are in the results section. POTASSIUM LEVEL AM 11/18/2022 2:44 Results f or AM CDT this procedure are in the results section. SODIUM LEVEL AM 11/18/2022 2:44 Results for AM CDT this procedure are in the results section. CREATININE AM 11/18/2022 2:44 AM CDT BLOOD UREA NITROGEN AM 11/18/2022 2:44 Resul ts for AM CDT this procedure are in the results section. CALCIUM LEVEL AM 11/18/2022 2:44 Results for AM CDT this procedure are in the results section. GLUCOSE, RANDOM AM 11/18/2022 2:44 Results f or AM CDT this procedure are in the results section. LACTATE DEHYDROGENASE AM 11/18/2022 2:44 Res ults for AM CDT this procedure are in the results section. COMPLETE BLOOD COUNT W/ AM 11/18/2022 2:44 DIFFERENTIAL AM CDT OCT, OPTIC NERVE - OU - Routine 11/17/2022 2:26 Blurring of vi sual Results for BOTH EYES PM CDT image this procedure are in the results section. OCT, RETINA - OU - BOTH Routine 11/17/2022 2:26 Blurring of vi sual Results for EYES PM CDT image this procedure are in the results section. TMP INTERPRETATION Routine 11/17/2022 1:15 Result s for ANTIBODY SCREEN AM CDT this procedu re NEGATIVE are in the results section. CLOT EXPIRATION DATE Routine 11/17/2022 1:15 Resu lts for AM CDT this procedure are in the results section. ANION GAP AM 11/17/2022 1:15 Results for AM CDT this procedure are in the results section. .GLOMERULAR FILTRATION AM 11/17/2022 1:15 Re sults for RATE AM CDT this procedure are in the results section. SERUM CREATININE AM 11/17/2022 1:15 Results for AM CDT this procedure are in the results section. DIFFERENTIAL AM 11/17/2022 1:15 Results for AM CDT this procedure are in the results section. .CBC AM 11/17/2022 1:15 Results for AM CDT this procedure are in the results section. ANTIBODY SCREEN Routine 11/17/2022 1:15 Results f or AM CDT this procedure are in the results section. ABORH Routine 11/17/2022 1:15 Results for AM CDT this procedure are in the results section. FIBRINOGEN Routine 11/17/2022 1:15 Results for AM CDT this procedure are in the results section. D DIMER Routine 11/17/2022 1:15 Results for AM CDT this procedure are in the results section. APTT Routine 11/17/2022 1:15 Results for AM CDT this procedure are in the results section. PROTHROMBIN TIME Routine 11/17/2022 1:15 Results for AM CDT this procedure are in the results section. URIC ACID AM 11/17/2022 1:15 Results for AM CDT this procedure are in the results section. ASPARTATE AM 11/17/2022 1:15 Results for AMINOTRANSFERASE AM CDT this proced ure are in the results section. ALANINE AM 11/17/2022 1:15 Results for AMINOTRANSFERASE AM CDT this proced ure are in the results section. ALKALINE PHOSPHATASE AM 11/17/2022 1:15 Resu lts for AM CDT this procedure are in the results section. FRACTIONATED BILIRUBIN AM 11/17/2022 1:15 Re sults for AM CDT this procedure are in the results section. PHOSPHORUS LEVEL AM 11/17/2022 1:15 Results for AM CDT this procedure are in the results section. ALBUMIN LEVEL AM 11/17/2022 1:15 Results for AM CDT this procedure are in the results section. TOTAL PROTEIN AM 11/17/2022 1:15 Results for AM CDT this procedure are in the results section. CARBON DIOXIDE LEVEL AM 11/17/2022 1:15 Res ults for AM CDT this procedure are in the results section. CHLORIDE LEVEL AM 11/17/2022 1:15 Results fo r AM CDT this procedure are in the results section. MAGNESIUM LEVEL AM 11/17/2022 1:15 Results f or AM CDT this procedure are in the results section. POTASSIUM LEVEL AM 11/17/2022 1:15 Results f or AM CDT this procedure are in the results section. SODIUM LEVEL AM 11/17/2022 1:15 Results for AM CDT this procedure are in the results section. CREATININE AM 11/17/2022 1:15 AM CDT BLOOD UREA NITROGEN AM 11/17/2022 1:15 Resul ts for AM CDT this procedure are in the results section. CALCIUM LEVEL AM 11/17/2022 1:15 Results for AM CDT this procedure are in the results section. GLUCOSE, RANDOM AM 11/17/2022 1:15 Results f or AM CDT this procedure are in the results section. LACTATE DEHYDROGENASE AM 11/17/2022 1:15 Res ults for AM CDT this procedure are in the results section. COMPLETE BLOOD COUNT W/ AM 11/17/2022 1:15 DIFFERENTIAL AM CDT TYPE AND SCREEN Routine 11/17/2022 1:15 AM CDT ANION GAP AM 11/16/2022 5:47 Results for AM CDT this procedure are in the results section. .GLOMERULAR FILTRATION AM 11/16/2022 5:47 Re sults for RATE AM CDT this procedure are in the results section. SERUM CREATININE AM 11/16/2022 5:47 Results for AM CDT this procedure are in the results section. DIFFERENTIAL AM 11/16/2022 5:47 Results for AM CDT this procedure are in the results section. .CBC AM 11/16/2022 5:47 Results for AM CDT this procedure are in the results section. URIC ACID AM 11/16/2022 5:47 Results for AM CDT this procedure are in the results section. ASPARTATE AM 11/16/2022 5:47 Results for AMINOTRANSFERASE AM CDT this proced ure are in the results section. ALANINE AM 11/16/2022 5:47 Results for AMINOTRANSFERASE AM CDT this proced ure are in the results section. ALKALINE PHOSPHATASE AM 11/16/2022 5:47 Resu lts for AM CDT this procedure are in the results section. FRACTIONATED BILIRUBIN AM 11/16/2022 5:47 Re sults for AM CDT this procedure are in the results section. PHOSPHORUS LEVEL AM 11/16/2022 5:47 Results for AM CDT this procedure are in the results section. ALBUMIN LEVEL AM 11/16/2022 5:47 Results for AM CDT this procedure are in the results section. TOTAL PROTEIN AM 11/16/2022 5:47 Results for AM CDT this procedure are in the results section. CARBON DIOXIDE LEVEL AM 11/16/2022 5:47 Resu lts for AM CDT this procedure are in the results section. CHLORIDE LEVEL AM 11/16/2022 5:47 Results fo r AM CDT this procedure are in the results section. MAGNESIUM LEVEL AM 11/16/2022 5:47 Results f or AM CDT this procedure are in the results section. POTASSIUM LEVEL AM 11/16/2022 5:47 Results f or AM CDT this procedure are in the results section. SODIUM LEVEL AM 11/16/2022 5:47 Results for AM CDT this procedure are in the results section. CREATININE AM 11/16/2022 5:47 AM CDT BLOOD UREA NITROGEN AM 11/16/2022 5:47 Resul ts for AM CDT this procedure are in the results section. CALCIUM LEVEL AM 11/16/2022 5:47 Results for AM CDT this procedure are in the results section. GLUCOSE, RANDOM AM 11/16/2022 5:47 Results f or AM CDT this procedure are in the results section. LACTATE DEHYDROGENASE AM 11/16/2022 5:47 Res ults for AM CDT this procedure are in the results section. COMPLETE BLOOD COUNT W/ AM 11/16/2022 5:47 DIFFERENTIAL AM CDT ANION GAP AM 11/15/2022 6:28 Results for AM CDT this procedure are in the results section. .GLOMERULAR FILTRATION AM 11/15/2022 6:28 Re sults for RATE AM CDT this procedure are in the results section. SERUM CREATININE AM 11/15/2022 6:28 Results for AM CDT this procedure are in the results section. DIFFERENTIAL AM 11/15/2022 6:28 Results for AM CDT this procedure are in the results section. .CBC AM 11/15/2022 6:28 Results for AM CDT this procedure are in the results section. URIC ACID AM 11/15/2022 6:28 Results for AM CDT this procedure are in the results section. ASPARTATE AM 11/15/2022 6:28 Results for AMINOTRANSFERASE AM CDT this proced ure are in the results section. ALANINE AM 11/15/2022 6:28 Results for AMINOTRANSFERASE AM CDT this proced ure are in the results section. ALKALINE PHOSPHATASE AM 11/15/2022 6:28 Resu lts for AM CDT this procedure are in the results section. FRACTIONATED BILIRUBIN AM 11/15/2022 6:28 Re sults for AM CDT this procedure are in the results section. PHOSPHORUS LEVEL AM 11/15/2022 6:28 Results for AM CDT this procedure are in the results section. ALBUMIN LEVEL AM 11/15/2022 6:28 Results for AM CDT this procedure are in the results section. TOTAL PROTEIN AM 11/15/2022 6:28 Results for AM CDT this procedure are in the results section. CARBON DIOXIDE LEVEL AM 11/15/2022 6:28 Resu lts for AM CDT this procedure are in the results section. CHLORIDE LEVEL AM 11/15/2022 6:28 Results fo r AM CDT this procedure are in the results section. MAGNESIUM LEVEL AM 11/15/2022 6:28 Results f or AM CDT this procedure are in the results section. POTASSIUM LEVEL AM 11/15/2022 6:28 Results f or AM CDT this procedure are in the results section. SODIUM LEVEL AM 11/15/2022 6:28 Results for AM CDT this procedure are in the results section. CREATININE AM 11/15/2022 6:28 AM CDT BLOOD UREA NITROGEN AM 11/15/2022 6:28 Resul ts for AM CDT this procedure are in the results section. CALCIUM LEVEL AM 11/15/2022 6:28 Results for AM CDT this procedure are in the results section. GLUCOSE, RANDOM AM 11/15/2022 6:28 Results f or AM CDT this procedure are in the results section. LACTATE DEHYDROGENASE AM 11/15/2022 6:28 Res ults for AM CDT this procedure are in the results section. 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 CYTOLOGY NON-RISK MANAGEMENT PROFESSIONAL Routine 11/14/2022 2:31 Blurring of visual Re sults for INTERPRETATION PM CDT image this procedur e are in the results section. HP FC CAR19 ([id number]) Routine 11/14/2022 2:30 FINAL REPORT PM CDT HP FC FLOW CYTOMETRY Routine 11/14/2022 2:30 Resu lts for BLOOD COLLECTION PM CDT this proced ure are in the results section. HP FC ACUTE LEUKEMIA Routine 11/14/2022 2:30 Resu lts for SCREEN COLLECTION, PM CDT this proc edure NONBLOOD are in the results section. CELL COUNT W/ DIFF Routine 11/14/2022 2:30 Result s for CEREBROSPINAL FLUID PM CDT this pro cedure are in the results section. GLUCOSE CEREBROSPINAL Routine 11/14/2022 2:30 Res ults for FLUID PM CDT this procedure are in the results section. PROTEIN CEREBROSPINAL Routine 11/14/2022 2:30 Res ults for FLUID PM CDT this procedure are in the results section. ANION GAP AM 11/14/2022 2:28 Results for AM CDT this procedure are in the results section. .GLOMERULAR FILTRATION AM 11/14/2022 2:28 Re sults for RATE AM CDT this procedure are in the results section. SERUM CREATININE AM 11/14/2022 2:28 Results for AM CDT this procedure are in the results section. DIFFERENTIAL STAT 11/14/2022 2:28 Results for AM CDT this procedure are in the results section. .CBC STAT 11/14/2022 2:28 Results for AM CDT this procedure are in the results section. URIC ACID AM 11/14/2022 2:28 Results for AM CDT this procedure are in the results section. ASPARTATE AM 11/14/2022 2:28 Results for AMINOTRANSFERASE AM CDT this proced ure are in the results section. ALANINE AM 11/14/2022 2:28 Results for AMINOTRANSFERASE AM CDT this proced ure are in the results section. ALKALINE PHOSPHATASE AM 11/14/2022 2:28 Resu lts for AM CDT this procedure are in the results section. FRACTIONATED BILIRUBIN AM 11/14/2022 2:28 Re sults for AM CDT this procedure are in the results section. PHOSPHORUS LEVEL AM 11/14/2022 2:28 Results for AM CDT this procedure are in the results section. ALBUMIN LEVEL AM 11/14/2022 2:28 Results for AM CDT this procedure are in the results section. TOTAL PROTEIN AM 11/14/2022 2:28 Results for AM CDT this procedure are in the results section. CARBON DIOXIDE LEVEL AM 11/14/2022 2:28 Resu lts for AM CDT this procedure are in the results section. CHLORIDE LEVEL AM 11/14/2022 2:28 Results fo r AM CDT this procedure are in the results section. MAGNESIUM LEVEL AM 11/14/2022 2:28 Results f or AM CDT this procedure are in the results section. POTASSIUM LEVEL AM 11/14/2022 2:28 Results f or AM CDT this procedure are in the results section. SODIUM LEVEL AM 11/14/2022 2:28 Results for AM CDT this procedure are in the results section. CREATININE AM 11/14/2022 2:28 AM CDT BLOOD UREA NITROGEN AM 11/14/2022 2:28 Resul ts for AM CDT this procedure are in the results section. CALCIUM LEVEL AM 11/14/2022 2:28 Results for AM CDT this procedure are in the results section. GLUCOSE, RANDOM AM 11/14/2022 2:28 Results f or AM CDT this procedure are in the results section. LACTATE DEHYDROGENASE AM 11/14/2022 2:28 Res ults for AM CDT this procedure are in the results section. COMPLETE BLOOD COUNT W/ AM 11/14/2022 2:28 DIFFERENTIAL AM CDT VRE CULTURE Routine 11/13/2022 10:00 Results for PM CDT this procedure are in the results section. TMP INTERPRETATION Routine 11/13/2022 9:58 Result s for ANTIBODY SCREEN PM CDT this procedu re NEGATIVE are in the results section. CLOT EXPIRATION DATE Routine 11/13/2022 9:58 Resu lts for PM CDT this procedure are in the results section. ANTIBODY SCREEN Routine 11/13/2022 9:58 Results f or PM CDT this procedure are in the results section. ABORH Routine 11/13/2022 9:58 Results for PM CDT this procedure are in the results section. TYPE AND SCREEN Routine 11/13/2022 9:58 PM CDT FIBRINOGEN Routine 11/13/2022 9:58 Results for PM CDT this procedure are in the results section. D DIMER Routine 11/13/2022 9:58 Results for PM CDT this procedure are in the results section. APTT Routine 11/13/2022 9:58 Results for PM CDT this procedure are in the results section. PROTHROMBIN TIME Routine 11/13/2022 9:58 Results for PM CDT this procedure are in the results section. C REACTIVE PROTEIN Routine 11/13/2022 9:58 Result s for PM CDT this procedure are in the results section. SEDIMENTATION RATE Routine 11/13/2022 9:58 Result s for NON-AUTOMATED PM CDT this procedure are in the results section. MRI BRAIN W WO CONTRAST STAT 11/13/2022 8:41 R esults for PM CDT this procedure are in the results section. 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 OCT, RETINA - OU - BOTH Routine 11/13/2022 11:35 Acute lymphob lastic Results for EYES AM CDT leukemia this procedure are in the results section. CLOT EXPIRATION DATE Routine 11/13/2022 9:55 Resu lts for AM CDT this procedure are in the results section. TMP INTERPRETATION Routine 11/13/2022 9:55 Result s for ANTIBODY SCREEN AM CDT this procedu re NEGATIVE are in the results section. .GLOMERULAR FILTRATION Routine 11/13/2022 9:55 Acute lymphobla stic Results for RATE AM CDT leukemia this procedure are in the results section. SERUM CREATININE Routine 11/13/2022 9:55 Acute lymphoblastic R esults for AM CDT leukemia this procedure are in the results section. DIFFERENTIAL STAT 11/13/2022 9:55 Acute lymphoblastic Resul ts for AM CDT leukemia this procedure are in the results section. .CBC STAT 11/13/2022 9:55 Acute lymphoblastic Resul ts for AM CDT leukemia this procedure are in the results section. ANTIBODY SCREEN Routine 11/13/2022 9:55 Acute lymphoblastic Re sults for AM CDT leukemia this procedure are in the results section. ABORH Routine 11/13/2022 9:55 Acute lymphoblastic Resul ts for AM CDT leukemia this procedure are in the results section. MAGNESIUM LEVEL Routine 11/13/2022 9:55 Acute lymphoblastic Re sults for AM CDT leukemia this procedure are in the results section. ELECTROLYTE PANEL Routine 11/13/2022 9:55 Acute lymphoblastic Results for AM CDT leukemia this procedure are in the results section. ALANINE Routine 11/13/2022 9:55 Acute lymphoblastic Resul ts for AMINOTRANSFERASE AM CDT leukemia this proced ure are in the results section. LACTATE DEHYDROGENASE Routine 11/13/2022 9:55 Acute lymphoblas tic Results for AM CDT leukemia this procedure are in the results section. ALKALINE PHOSPHATASE Routine 11/13/2022 9:55 Acute lymphoblast ic Results for AM CDT leukemia this procedure are in the results section. FRACTIONATED BILIRUBIN Routine 11/13/2022 9:55 Acute lymphobla stic Results for AM CDT leukemia this procedure are in the results section. URIC ACID Routine 11/13/2022 9:55 Acute lymphoblastic Resul ts for AM CDT leukemia this procedure are in the results section. CREATININE Routine 11/13/2022 9:55 Acute lymphoblastic AM CDT leukemia BLOOD UREA NITROGEN Routine 11/13/2022 9:55 Acute lymphoblasti c Results for AM CDT leukemia this procedure are in the results section. GLUCOSE, RANDOM Routine 11/13/2022 9:55 Acute lymphoblastic Re sults for AM CDT leukemia this procedure are in the results section. PHOSPHORUS LEVEL Routine 11/13/2022 9:55 Acute lymphoblastic R esults for AM CDT leukemia this procedure are in the results section. CALCIUM LEVEL Routine 11/13/2022 9:55 Acute lymphoblastic Resu lts for AM CDT leukemia this procedure are in the results section. ALBUMIN LEVEL Routine 11/13/2022 9:55 Acute lymphoblastic Resu lts for AM CDT leukemia this procedure are in the results section. TOTAL PROTEIN Routine 11/13/2022 9:55 Acute lymphoblastic Resu lts for AM CDT leukemia this procedure are in the results section. COMPLETE BLOOD COUNT W/ Routine 11/13/2022 9:55 Acute lymphobl astic DIFFERENTIAL AM CDT leukemia TYPE AND SCREEN Routine 11/13/2022 9:55 Acute lymphoblastic AM CDT leukemia CLOT EXPIRATION DATE Routine 10/15/2022 11:32 Res ults for AM CDT this procedure are in the results section. TMP INTERPRETATION Routine 10/15/2022 11:32 Resul ts for ANTIBODY SCREEN AM CDT this procedu re NEGATIVE are in the results section. ANTIBODY SCREEN Routine 10/15/2022 11:32 Acute lymphoblastic R esults for AM CDT leukemia this procedure are in the results section. ABORH Routine 10/15/2022 11:32 Acute lymphoblastic Resu lts for AM CDT leukemia this procedure are in the results section. DIFFERENTIAL STAT 10/15/2022 11:32 Acute lymphoblastic Resu lts for AM CDT leukemia this procedure are in the results section. .CBC STAT 10/15/2022 11:32 Acute lymphoblastic Resu lts for AM CDT leukemia this procedure are in the results section. .GLOMERULAR FILTRATION Routine 10/15/2022 11:32 Acute lymphobl astic Results for RATE AM CDT leukemia this procedure are in the results section. SERUM CREATININE Routine 10/15/2022 11:32 Acute lymphoblastic Results for AM CDT leukemia this procedure are in the results section. COMPLETE BLOOD COUNT W/ Routine 10/15/2022 11:32 Acute lymphob lastic DIFFERENTIAL AM CDT leukemia TYPE AND SCREEN Routine 10/15/2022 11:32 Acute lymphoblastic AM CDT leukemia IMMUNOGLOBULIN G Routine 10/15/2022 11:32 Acute lymphoblastic Results for AM CDT leukemia this procedure are in the results section. IMMUNOGLOBULIN M Routine 10/15/2022 11:32 Acute lymphoblastic Results for AM CDT leukemia this procedure are in the results section. 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 MAGNESIUM LEVEL Routine 10/15/2022 11:32 Acute lymphoblastic R esults for AM CDT leukemia this procedure are in the results section. ELECTROLYTE PANEL Routine 10/15/2022 11:32 Acute lymphoblastic Results for AM CDT leukemia this procedure are in the results section. ALANINE Routine 10/15/2022 11:32 Acute lymphoblastic Resu lts for AMINOTRANSFERASE AM CDT leukemia this proced ure are in the results section. LACTATE DEHYDROGENASE Routine 10/15/2022 11:32 Acute lymphobla stic Results for AM CDT leukemia this procedure are in the results section. ALKALINE PHOSPHATASE Routine 10/15/2022 11:32 Acute lymphoblas tic Results for AM CDT leukemia this procedure are in the results section. FRACTIONATED BILIRUBIN Routine 10/15/2022 11:32 Acute lymphobl astic Results for AM CDT leukemia this procedure are in the results section. URIC ACID Routine 10/15/2022 11:32 Acute lymphoblastic Resu lts for AM CDT leukemia this procedure are in the results section. CREATININE Routine 10/15/2022 11:32 Acute lymphoblastic AM CDT leukemia BLOOD UREA NITROGEN Routine 10/15/2022 11:32 Acute lymphoblast ic Results for AM CDT leukemia this procedure are in the results section. GLUCOSE, RANDOM Routine 10/15/2022 11:32 Acute lymphoblastic R esults for AM CDT leukemia this procedure are in the results section. PHOSPHORUS LEVEL Routine 10/15/2022 11:32 Acute lymphoblastic Results for AM CDT leukemia this procedure are in the results section. CALCIUM LEVEL Routine 10/15/2022 11:32 Acute lymphoblastic Res ults for AM CDT leukemia this procedure are in the results section. ALBUMIN LEVEL Routine 10/15/2022 11:32 Acute lymphoblastic Res ults for AM CDT leukemia this procedure are in the results section. TOTAL PROTEIN Routine 10/15/2022 11:32 Acute lymphoblastic Res ults for AM CDT leukemia this procedure are in the results section. CLOT EXPIRATION DATE Routine 10/08/2022 8:21 Resu lts for AM CDT this procedure are in the results section. TMP INTERPRETATION Routine 10/08/2022 8:21 Result s for ANTIBODY SCREEN AM CDT this procedu re NEGATIVE are in the results section. 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 SERUM CREATININE Routine 10/08/2022 8:21 Acute lymphoblastic R esults for AM CDT leukemia this procedure are in the results section. ANTIBODY SCREEN Routine 10/08/2022 8:21 Acute lymphoblastic Re sults for AM CDT leukemia this procedure are in the results section. 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 MAGNESIUM LEVEL Routine 10/08/2022 8:21 Acute lymphoblastic Re sults for AM CDT leukemia this procedure are in the results section. 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 ALANINE Routine 10/08/2022 8:21 Acute lymphoblastic Resul ts for AMINOTRANSFERASE AM CDT leukemia this proced ure are in the results section. LACTATE DEHYDROGENASE Routine 10/08/2022 8:21 Acute lymphoblas tic Results for AM CDT leukemia this procedure are in the results section. ALKALINE PHOSPHATASE Routine 10/08/2022 8:21 Acute lymphoblast ic Results for AM CDT leukemia this procedure are in the results section. FRACTIONATED BILIRUBIN Routine 10/08/2022 8:21 Acute lymphobla stic Results for AM CDT leukemia this procedure are in the results section. 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 CREATININE Routine 10/08/2022 8:21 Acute lymphoblastic AM CDT leukemia BLOOD UREA NITROGEN Routine 10/08/2022 8:21 Acute lymphoblasti c Results for AM CDT leukemia this procedure are in the results section. GLUCOSE, RANDOM Routine 10/08/2022 8:21 Acute lymphoblastic Re sults for AM CDT leukemia this procedure are in the results section. PHOSPHORUS LEVEL Routine 10/08/2022 8:21 Acute lymphoblastic R esults for AM CDT leukemia this procedure are in the results section. CALCIUM LEVEL Routine 10/08/2022 8:21 Acute lymphoblastic Resu lts for AM CDT leukemia this procedure are in the results section. ALBUMIN LEVEL Routine 10/08/2022 8:21 Acute lymphoblastic Resu lts for AM CDT leukemia this procedure are in the results section. TOTAL PROTEIN Routine 10/08/2022 8:21 Acute lymphoblastic Resu lts for AM CDT leukemia this procedure are in the results section. 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 URINALYSIS WITH Routine 10/05/2022 6:17 Results f or MICROSCOPIC IF PM CDT this procedur e INDICATED are in the results section. URINE CULTURE Routine 10/05/2022 6:17 Results for PM CDT this procedure are in the results section. XR CHEST 1 VW Routine 10/05/2022 4:48 Results for PM CDT this procedure are in the results section. POC VENOUS BLOOD GAS + Routine 10/05/2022 2:57 Re sults for LACTATE PM CDT this procedure are in the results section. FRACTIONATED BILIRUBIN Routine 10/05/2022 2:47 Re sults for PM CDT this procedure are in the results section. TOTAL PROTEIN Routine 10/05/2022 2:47 Results for PM CDT this procedure are in the results section. ASPARTATE Routine 10/05/2022 2:47 Results for AMINOTRANSFERASE PM CDT this proced ure are in the results section. ALANINE Routine 10/05/2022 2:47 Results for AMINOTRANSFERASE PM CDT this proced ure are in the results section. ALKALINE PHOSPHATASE Routine 10/05/2022 2:47 Resu lts for PM CDT this procedure are in the results section. ALBUMIN LEVEL Routine 10/05/2022 2:47 Results for PM CDT this procedure are in the results section. CALCIUM LEVEL Routine 10/05/2022 2:47 Results for PM CDT this procedure are in the results section. .GLOMERULAR FILTRATION Routine 10/05/2022 2:47 Re sults for RATE PM CDT this procedure are in the results section. SERUM CREATININE Routine 10/05/2022 2:47 Results for PM CDT this procedure are in the results section. ELECTROLYTE PANEL Routine 10/05/2022 2:47 Results for PM CDT this procedure are in the results section. BLOOD UREA NITROGEN Routine 10/05/2022 2:47 Resul ts for PM CDT this procedure are in the results section. GLUCOSE LEVEL Routine 10/05/2022 2:47 Results for PM CDT this procedure are in the results section. DIFFERENTIAL STAT 10/05/2022 2:47 Results for PM CDT this procedure are in the results section. .CBC STAT 10/05/2022 2:47 Results for PM CDT this procedure are in the results section. D DIMER Routine 10/05/2022 2:47 Results for PM CDT this procedure are in the results section. APTT Routine 10/05/2022 2:47 Results for PM CDT this procedure are in the results section. PROTHROMBIN TIME Routine 10/05/2022 2:47 Results for PM CDT this procedure are in the results section. NT PRO BNP Routine 10/05/2022 2:47 Results for PM CDT this procedure are in the results section. CARDIAC PANEL Timed Study 10/05/2022 2:47 Results for PM CDT this procedure are in the results section. PROCALCITONIN Routine 10/05/2022 2:47 Results for PM CDT this procedure are in the results section. C REACTIVE PROTEIN Routine 10/05/2022 2:47 Result s for PM CDT this procedure are in the results section. PHOSPHORUS LEVEL Routine 10/05/2022 2:47 Results for PM CDT this procedure are in the results section. MAGNESIUM LEVEL Routine 10/05/2022 2:47 Results f or PM CDT this procedure are in the results section. COMPREHENSIVE METABOLIC Routine 10/05/2022 2:47 PANEL PM CDT COMPLETE BLOOD COUNT W/ Routine 10/05/2022 2:47 DIFFERENTIAL PM CDT RESPIRATORY MULTIPLEX Routine 10/05/2022 2:47 Res ults for PCR PANEL, PM CDT this procedure NASOPHARYNGEAL SWAB are in t he results section. BLOOD CULTURE Routine 10/05/2022 2:47 Results for PM CDT this procedure are in the results section. CLOT EXPIRATION DATE Routine 10/01/2022 8:29 Resu lts for AM CDT this procedure are in the results section. TMP INTERPRETATION Routine 10/01/2022 8:29 Result s for ANTIBODY SCREEN AM CDT this procedu re NEGATIVE are in the results section. ANTIBODY SCREEN Routine 10/01/2022 8:29 Acute lymphoblastic Re sults for AM CDT leukemia this procedure are in the results section. 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 .GLOMERULAR FILTRATION Routine 10/01/2022 8:29 Acute lymphobla stic Results for RATE AM CDT leukemia this procedure are in the results section. SERUM CREATININE Routine 10/01/2022 8:29 Acute lymphoblastic R esults for AM CDT leukemia this procedure are in the results section. 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 MAGNESIUM LEVEL Routine 10/01/2022 8:29 Acute lymphoblastic Re sults for AM CDT leukemia this procedure are in the results section. ELECTROLYTE PANEL Routine 10/01/2022 8:29 Acute lymphoblastic Results for AM CDT leukemia this procedure are in the results section. ALANINE Routine 10/01/2022 8:29 Acute lymphoblastic Resul ts for AMINOTRANSFERASE AM CDT leukemia this proced ure are in the results section. LACTATE DEHYDROGENASE Routine 10/01/2022 8:29 Acute lymphoblas tic Results for AM CDT leukemia this procedure are in the results section. ALKALINE PHOSPHATASE Routine 10/01/2022 8:29 Acute lymphoblast ic Results for AM CDT leukemia this procedure are in the results section. FRACTIONATED BILIRUBIN Routine 10/01/2022 8:29 Acute lymphobla stic Results for AM CDT leukemia this procedure are in the results section. 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 CREATININE Routine 10/01/2022 8:29 Acute lymphoblastic AM CDT leukemia BLOOD UREA NITROGEN Routine 10/01/2022 8:29 Acute lymphoblasti c Results for AM CDT leukemia this procedure are in the results section. GLUCOSE, RANDOM Routine 10/01/2022 8:29 Acute lymphoblastic Re sults for AM CDT leukemia this procedure are in the results section. PHOSPHORUS LEVEL Routine 10/01/2022 8:29 Acute lymphoblastic R esults for AM CDT leukemia this procedure are in the results section. CALCIUM LEVEL Routine 10/01/2022 8:29 Acute lymphoblastic Resu lts for AM CDT leukemia this procedure are in the results section. ALBUMIN LEVEL Routine 10/01/2022 8:29 Acute lymphoblastic Resu lts for AM CDT leukemia this procedure are in the results section. TOTAL PROTEIN Routine 10/01/2022 8:29 Acute lymphoblastic Resu lts for AM CDT leukemia this procedure are in the results section. 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 HEMATOPATHOLOGY BONE Routine 09/17/2022 12:19 Acute lymphoid R esults for MARROW DIFFERENTIAL PM HAND ROLLER leukemia this pro cedure are in the results section. HEMATOPATHOLOGY BONE Routine 09/17/2022 12:19 Acute lymphoid R esults for MARROW INTERPRETATION PM HAND ROLLER leukemia this p rocedure are in the results section. HP FC MRD B ALL Routine 09/17/2022 12:18 INTERPRETATION AND PM HAND ROLLER REPORT HP MD T(9;22) BCR/ABL1 Routine 09/17/2022 12:18 QUANTITATIVE PCR PM HAND ROLLER INTERPRETATION AND REPORT HP MD T(9;22) BCR/ABL1 Routine 09/17/2022 12:18 R esults for QUANTITATIVE PCR PM HAND ROLLER this proced ure COLLECTION, NONBLOOD are in the results section. HP MOLECULAR BLOOD Routine 09/17/2022 12:18 Resul ts for COLLECTION PM HAND ROLLER this procedure are in the results section. HP CG CHROMOSOME Routine 09/17/2022 12:18 ANALYSIS INTERPRETATION PM HAND ROLLER AND REPORT HP CYTOGENETICS BLOOD Routine 09/17/2022 12:18 Re sults for COLLECTION PM HAND ROLLER this procedure are in the results section. HP FC FLOW CYTOMETRY Routine 09/17/2022 12:18 Res ults for BLOOD COLLECTION PM HAND ROLLER this proced ure are in the results section. HP CG CHROMOSOME Routine 09/17/2022 12:18 Acute lymphoid Resul ts for ANALYSIS COLLECTION, PM HAND ROLLER leukemia this pr ocedure NONBLOOD are in the results section. HP FC MRD B ALL Routine 09/17/2022 12:18 Acute lymphoid Result s for COLLECTION, NONBLOOD PM HAND ROLLER leukemia this pr ocedure are in the results section. ADAPTIVE CLONOSEQ-SEND Routine 09/17/2022 12:18 Acute lymphoid Results for OUT, BONE MARROW PM HAND ROLLER leukemia this proced ure are in the results section. HP PH-LIKE ALL Routine 09/17/2022 12:18 Acute lymphoid Resu lts for FUSION MULTIPLEX PANEL PM HAND ROLLER leukemia this procedure - SEND OUT COLLECTION, are i n the NONBLOOD results section. HP FC LYMPHOCYTE SUBSET Routine 09/17/2022 10:28 Results for AM HAND ROLLER this procedure are in the results section. HP FC CAR19 ([id number]) Routine 09/17/2022 10:28 FINAL REPORT AM HAND ROLLER HP FC FLOW CYTOMETRY Routine 09/17/2022 10:28 Res ults for BLOOD COLLECTION AM HAND ROLLER this proced ure are in the results section. TMP INTERPRETATION Routine 09/17/2022 10:28 Resul ts for ANTIBODY SCREEN AM HAND ROLLER this procedu re NEGATIVE are in the results section. CLOT EXPIRATION DATE Routine 09/17/2022 10:28 Res ults for AM HAND ROLLER this procedure are in the results section. DIFFERENTIAL Routine 09/17/2022 10:28 Acute lymphoblastic Resu lts for AM HAND ROLLER leukemia this procedure are in the results section. .CBC STAT 09/17/2022 10:28 Acute lymphoblastic Resu lts for AM HAND ROLLER leukemia this procedure are in the results section. ANTIBODY SCREEN Routine 09/17/2022 10:28 Acute lymphoblastic R esults for AM HAND ROLLER leukemia this procedure are in the results section. ABORH Routine 09/17/2022 10:28 Acute lymphoblastic Resu lts for AM HAND ROLLER leukemia this procedure are in the results section. .GLOMERULAR FILTRATION Routine 09/17/2022 10:28 Acute lymphobl astic Results for RATE AM HAND ROLLER leukemia this procedure are in the results section. SERUM CREATININE Routine 09/17/2022 10:28 Acute lymphoblastic Results for AM HAND ROLLER leukemia this procedure are in the results section. HP FC LYMPHOCYTE SUBSET Routine 09/17/2022 10:28 Acute lymphoi d Results for COLLECTION, BLOOD AM HAND ROLLER leukemia this proce dure are in the results section. HP FC CAR19 ([id number]) Routine 09/17/2022 10:28 Acute lymphoid Re sults for COLLECTION, BLOOD AM HAND ROLLER leukemia this proce dure are in the results section. PERIPHERAL SMR FOR BONE Routine 09/17/2022 10:28 Acute lymphoi d Results for MARROW AM HAND ROLLER leukemia this procedure are in the results section. COMPLETE BLOOD COUNT W/ Routine 09/17/2022 10:28 Acute lymphob lastic DIFFERENTIAL AM HAND ROLLER leukemia TYPE AND SCREEN Routine 09/17/2022 10:28 Acute lymphoblastic AM HAND ROLLER leukemia IMMUNOGLOBULIN G Routine 09/17/2022 10:28 Acute lymphoblastic Results for AM HAND ROLLER leukemia this procedure are in the results section. IMMUNOGLOBULIN M Routine 09/17/2022 10:28 Acute lymphoblastic Results for AM HAND ROLLER leukemia this procedure are in the results section. IMMUNOGLOBULIN A Routine 09/17/2022 10:28 Acute lymphoblastic Results for AM HAND ROLLER leukemia this procedure are in the results section. MAGNESIUM LEVEL Routine 09/17/2022 10:28 Acute lymphoblastic R esults for AM HAND ROLLER leukemia this procedure are in the results section. ELECTROLYTE PANEL Routine 09/17/2022 10:28 Acute lymphoblastic Results for AM HAND ROLLER leukemia this procedure are in the results section. ALANINE Routine 09/17/2022 10:28 Acute lymphoblastic Resu lts for AMINOTRANSFERASE AM HAND ROLLER leukemia this proced ure are in the results section. LACTATE DEHYDROGENASE Routine 09/17/2022 10:28 Acute lymphobla stic Results for AM HAND ROLLER leukemia this procedure are in the results section. ALKALINE PHOSPHATASE Routine 09/17/2022 10:28 Acute lymphoblas tic Results for AM HAND ROLLER leukemia this procedure are in the results section. FRACTIONATED BILIRUBIN Routine 09/17/2022 10:28 Acute lymphobl astic Results for AM HAND ROLLER leukemia this procedure are in the results section. URIC ACID Routine 09/17/2022 10:28 Acute lymphoblastic Resu lts for AM HAND ROLLER leukemia this procedure are in the results section. CREATININE Routine 09/17/2022 10:28 Acute lymphoblastic AM HAND ROLLER leukemia BLOOD UREA NITROGEN Routine 09/17/2022 10:28 Acute lymphoblast ic Results for AM HAND ROLLER leukemia this procedure are in the results section. GLUCOSE, RANDOM Routine 09/17/2022 10:28 Acute lymphoblastic R esults for AM HAND ROLLER leukemia this procedure are in the results section. PHOSPHORUS LEVEL Routine 09/17/2022 10:28 Acute lymphoblastic Results for AM HAND ROLLER leukemia this procedure are in the results section. CALCIUM LEVEL Routine 09/17/2022 10:28 Acute lymphoblastic Res ults for AM HAND ROLLER leukemia this procedure are in the results section. ALBUMIN LEVEL Routine 09/17/2022 10:28 Acute lymphoblastic Res ults for AM HAND ROLLER leukemia this procedure are in the results section. TOTAL PROTEIN Routine 09/17/2022 10:28 Acute lymphoblastic Res ults for AM HAND ROLLER leukemia this procedure are in the results section. TMP INTERPRETATION Routine 09/11/2022 9:15 Result s for ANTIBODY SCREEN AM HAND ROLLER this procedu re NEGATIVE are in the results section. CLOT EXPIRATION DATE Routine 09/11/2022 9:15 Resu lts for AM HAND ROLLER this procedure are in the results section. .GLOMERULAR FILTRATION Routine 09/11/2022 9:15 Acute lymphobla stic Results for RATE AM HAND ROLLER leukemia this procedure are in the results section. SERUM CREATININE Routine 09/11/2022 9:15 Acute lymphoblastic R esults for AM HAND ROLLER leukemia this procedure are in the results section. DIFFERENTIAL STAT 09/11/2022 9:15 Acute lymphoblastic Resul ts for AM HAND ROLLER leukemia this procedure are in the results section. .CBC STAT 09/11/2022 9:15 Acute lymphoblastic Resul ts for AM HAND ROLLER leukemia this procedure are in the results section. ANTIBODY SCREEN Routine 09/11/2022 9:15 Acute lymphoblastic Re sults for AM HAND ROLLER leukemia this procedure are in the results section. ABORH Routine 09/11/2022 9:15 Acute lymphoblastic Resul ts for AM HAND ROLLER leukemia this procedure are in the results section. MAGNESIUM LEVEL Routine 09/11/2022 9:15 Acute lymphoblastic Re sults for AM [employer] leukemia this procedure are in the results section. ELECTROLYTE PANEL Routine 09/11/2022 9:15 Acute lymphoblastic Results for AM [employer] leukemia this procedure are in the results section. ALANINE Routine 09/11/2022 9:15 Acute lymphoblastic Resul ts for AMINOTRANSFERASE AM [employer] leukemia this proced ure are in the results section. LACTATE DEHYDROGENASE Routine 09/11/2022 9:15 Acute lymphoblas tic Results for AM [employer] leukemia this procedure are in the results section. ALKALINE PHOSPHATASE Routine 09/11/2022 9:15 Acute lymphoblast ic Results for AM [employer] leukemia this procedure are in the results section. FRACTIONATED BILIRUBIN Routine 09/11/2022 9:15 Acute lymphobla stic Results for AM [employer] leukemia this procedure are in the results section. URIC ACID Routine 09/11/2022 9:15 Acute lymphoblastic Resul ts for AM [employer] leukemia this procedure are in the results section. CREATININE Routine 09/11/2022 9:15 Acute lymphoblastic AM [employer] leukemia BLOOD UREA NITROGEN Routine 09/11/2022 9:15 Acute lymphoblasti c Results for AM [employer] leukemia this procedure are in the results section. GLUCOSE, RANDOM Routine 09/11/2022 9:15 Acute lymphoblastic Re sults for AM [employer] leukemia this procedure are in the results section. PHOSPHORUS LEVEL Routine 09/11/2022 9:15 Acute lymphoblastic R esults for AM [employer] leukemia this procedure are in the results section. CALCIUM LEVEL Routine 09/11/2022 9:15 Acute lymphoblastic Resu lts for AM [employer] leukemia this procedure are in the results section. ALBUMIN LEVEL Routine 09/11/2022 9:15 Acute lymphoblastic Resu lts for AM [employer] leukemia this procedure are in the results section. TOTAL PROTEIN Routine 09/11/2022 9:15 Acute lymphoblastic Resu lts for AM [employer] leukemia this procedure are in the results section. COMPLETE BLOOD COUNT W/ Routine 09/11/2022 9:15 Acute lymphobl astic DIFFERENTIAL AM [employer] leukemia TYPE AND SCREEN Routine 09/11/2022 9:15 Acute lymphoblastic AM [employer] leukemia TMP INTERPRETATION Routine 09/04/2022 9:04 Result s for ANTIBODY SCREEN [facility] [employer] this procedu re NEGATIVE are in the results section. CLOT EXPIRATION DATE Routine 09/04/2022 9:04 Resu lts for AM [employer] this procedure are in the results section. .GLOMERULAR FILTRATION Routine 09/04/2022 9:04 Acute lymphobla stic Results for RATE AM [employer] leukemia this procedure are in the results section. SERUM CREATININE Routine 09/04/2022 9:04 Acute lymphoblastic R esults for AM [employer] leukemia this procedure are in the results section. DIFFERENTIAL STAT 09/04/2022 9:04 Acute lymphoblastic Resul ts for AM [employer] leukemia this procedure are in the results section. .CBC STAT 09/04/2022 9:04 Acute lymphoblastic Resu lts for AM [employer] leukemia this procedure are in the results section. ANTIBODY SCREEN Routine 09/04/2022 9:04 Acute lymphoblastic Re sults for AM [employer] leukemia this procedure are in the results section. ABORH Routine 09/04/2022 9:04 Acute lymphoblastic Resul ts for AM [employer] leukemia this procedure are in the results section. MAGNESIUM LEVEL Routine 09/04/2022 9:04 Acute lymphoblastic Re sults for AM [employer] leukemia this procedure are in the results section. ELECTROLYTE PANEL Routine 09/04/2022 9:04 Acute lymphoblastic Results for AM [employer] leukemia this procedure are in the results section. ALANINE Routine 09/04/2022 9:04 Acute lymphoblastic Resul ts for AMINOTRANSFERASE AM [employer] leukemia this proced ure are in the results section. LACTATE DEHYDROGENASE Routine 09/04/2022 9:04 Acute lymphoblas tic Results for AM [employer] leukemia this procedure are in the results section. ALKALINE PHOSPHATASE Routine 09/04/2022 9:04 Acute lymphoblast ic Results for AM [employer] leukemia this procedure are in the results section. FRACTIONATED BILIRUBIN Routine 09/04/2022 9:04 Acute lymphobla stic Results for AM [employer] leukemia this procedure are in the results section. URIC ACID Routine 09/04/2022 9:04 Acute lymphoblastic Resul ts for AM [employer] leukemia this procedure are in the results section. CREATININE Routine 09/04/2022 9:04 Acute lymphoblastic AM [employer] leukemia BLOOD UREA NITROGEN Routine 09/04/2022 9:04 Acute lymphoblasti c Results for AM [employer] leukemia this procedure are in the results section. GLUCOSE, RANDOM Routine 09/04/2022 9:04 Acute lymphoblastic Re sults for AM [employer] leukemia this procedure are in the results section. PHOSPHORUS LEVEL Routine 09/04/2022 9:04 Acute lymphoblastic R esults for AM [employer] leukemia this procedure are in the results section. CALCIUM LEVEL Routine 09/04/2022 9:04 Acute lymphoblastic Resu lts for AM [employer] leukemia this procedure are in the results section. ALBUMIN LEVEL Routine 09/04/2022 9:04 Acute lymphoblastic Resu lts for AM [employer] leukemia this procedure are in the results section. TOTAL PROTEIN Routine 09/04/2022 9:04 Acute lymphoblastic Resu lts for AM [employer] leukemia this procedure are in the results section. COMPLETE BLOOD COUNT W/ Routine 09/04/2022 9:04 Acute lymphobl astic DIFFERENTIAL AM [employer] leukemia TYPE AND SCREEN Routine 09/04/2022 9:04 Acute lymphoblastic AM [employer] leukemia TMP INTERPRETATION Routine 08/28/2022 8:55 Result s for ANTIBODY SCREEN [facility] [employer] this procedu re NEGATIVE are in the results section. CLOT EXPIRATION DATE Routine 08/28/2022 8:55 Resu lts for AM [employer] this procedure are in the results section. .GLOMERULAR FILTRATION Routine 08/28/2022 8:55 Acute lymphobla stic Results for RATE AM [employer] leukemia this procedure are in the results section. SERUM CREATININE Routine 08/28/2022 8:55 Acute lymphoblastic R esults for AM [employer] leukemia this procedure are in the results section. DIFFERENTIAL STAT 08/28/2022 8:55 Acute lymphoblastic Resul ts for AM [employer] leukemia this procedure are in the results section. .CBC STAT 08/28/2022 8:55 Acute lymphoblastic Resul ts for AM [employer] leukemia this procedure are in the results section. ANTIBODY SCREEN Routine 08/28/2022 8:55 Acute lymphoblastic Re sults for AM [employer] leukemia this procedure are in the results section. ABORH Routine 08/28/2022 8:55 Acute lymphoblastic Resul ts for AM [employer] leukemia this procedure are in the results section. MAGNESIUM LEVEL Routine 08/28/2022 8:55 Acute lymphoblastic Re sults for AM [employer] leukemia this procedure are in the results section. ELECTROLYTE PANEL Routine 08/28/2022 8:55 Acute lymphoblastic Results for AM [employer] leukemia this procedure are in the results section. ALANINE Routine 08/28/2022 8:55 Acute lymphoblastic Resul ts for AMINOTRANSFERASE AM [employer] leukemia this proced ure are in the results section. LACTATE DEHYDROGENASE Routine 08/28/2022 8:55 Acute lymphoblas tic Results for AM [employer] leukemia this procedure are in the results section. ALKALINE PHOSPHATASE Routine 08/28/2022 8:55 Acute lymphoblast ic Results for AM [employer] leukemia this procedure are in the results section. FRACTIONATED BILIRUBIN Routine 08/28/2022 8:55 Acute lymphobla stic Results for AM [employer] leukemia this procedure are in the results section. 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 GLUCOSE, RANDOM Routine 08/28/2022 8:55 Acute lymphoblastic Re sults for AM [employer] leukemia this procedure are in the results section. PHOSPHORUS LEVEL Routine 08/28/2022 8:55 Acute lymphoblastic R esults for AM [employer] leukemia this procedure are in the results section. CALCIUM LEVEL Routine 08/28/2022 8:55 Acute lymphoblastic Resu lts for AM [employer] leukemia this procedure are in the results section. ALBUMIN LEVEL Routine 08/28/2022 8:55 Acute lymphoblastic Resu lts for AM [employer] leukemia this procedure are in the results section. TOTAL PROTEIN Routine 08/28/2022 8:55 Acute lymphoblastic Resu lts for AM [employer] leukemia this procedure are in the results section. 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 HP FC MRD B ALL Routine 08/20/2022 1:43 INTERPRETATION AND PM [employer] [facility] REPORT HP T(9;22) BCR/ABL1 Routine 08/20/2022 1:43 QUANTITATIVE PCR PM [employer] INTERPRETATION AND REPORT HP MOLECULAR BLOOD Routine 08/20/2022 1:43 Result s for COLLECTION [facility] [employer] this procedure are in the results section. HP CG CHROMOSOME Routine 08/20/2022 1:43 ANALYSIS INTERPRETATION PM [employer] AND REPORT HP CYTOGENETICS BLOOD Routine 08/20/2022 1:43 Res ults for COLLECTION [employer] this procedure are in the results section. HP FC FLOW CYTOMETRY Routine 08/20/2022 1:43 Resu lts for BLOOD COLLECTION [facility] [employer] this proced ure are in the results section. HP T(9;22) BCR/ABL1 Routine 08/20/2022 1:43 Acute lymphobla stic Results for QUANTITATIVE PCR PM [employer] leukemia this proced ure COLLECTION, NONBLOOD are in the results section. HP FC MRD B ALL Routine 08/20/2022 1:43 Acute lymphoblastic Re sults for COLLECTION, NONBLOOD PM [employer] leukemia this pr ocedure are in the results section. ADAPTIVE CLONOSEQ-SEND Routine 08/20/2022 1:43 Acute lymphobla stic Results for OUT, BONE MARROW PM [employer] leukemia this proced ure are in the results section. HP CG CHROMOSOME Routine 08/20/2022 1:43 Acute lymphoblastic R esults for ANALYSIS COLLECTION, PM [employer] leukemia this pr ocedure NONBLOOD are in the results section. HEMATOPATHOLOGY BONE Routine 08/20/2022 1:36 Acute lymphoblast ic Results for MARROW DIFFERENTIAL PM [employer] leukemia this pro cedure are in the results section. HEMATOPATHOLOGY BONE Routine 08/20/2022 1:36 Acute lymphoblast ic Results for MARROW INTERPRETATION PM [employer] leukemia this p rocedure are in the results section. HP FC CAR19 ([id number]) Routine 08/20/2022 9:58 FINAL REPORT AM [employer] HP FC FLOW CYTOMETRY Routine 08/20/2022 9:58 Resu lts for BLOOD COLLECTION [facility] [employer] this proced ure are in the results section. TMP INTERPRETATION Routine 08/20/2022 9:58 Result s for ANTIBODY SCREEN [employer] this procedu re NEGATIVE are in the results section. CLOT EXPIRATION DATE Routine 08/20/2022 9:58 Resu lts for AM [employer] this procedure are in the results section. ANTIBODY SCREEN Routine 08/20/2022 9:58 Acute lymphoblastic Re sults for AM [employer] leukemia this procedure are in the results section. 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 .GLOMERULAR FILTRATION Routine 08/20/2022 9:58 Acute lymphobla stic Results for RATE AM [employer] leukemia this procedure are in the results section. SERUM CREATININE Routine 08/20/2022 9:58 Acute lymphoblastic R esults for AM [employer] leukemia this procedure are in the results section. HP FC CAR19 ([id number]) Routine 08/20/2022 9:58 Acute lymphoblasti c Results for COLLECTION, BLOOD AM [employer] leukemia this proce dure are in the results section. PERIPHERAL SMR FOR BONE Routine 08/20/2022 9:58 Acute lymphobl astic Results for MARROW AM [employer] leukemia this procedure are in the results section. 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 IMMUNOGLOBULIN M Routine 08/20/2022 9:58 Acute lymphoblastic R esults for AM [employer] leukemia this procedure are in the results section. IMMUNOGLOBULIN A Routine 08/20/2022 9:58 Acute lymphoblastic R esults for AM [employer] leukemia this procedure are in the results section. MAGNESIUM LEVEL Routine 08/20/2022 9:58 Acute lymphoblastic Re sults for AM [employer] leukemia this procedure are in the results section. ELECTROLYTE PANEL Routine 08/20/2022 9:58 Acute lymphoblastic Results for AM [employer] leukemia this procedure are in the results section. ALANINE Routine 08/20/2022 9:58 Acute lymphoblastic Resul ts for AMINOTRANSFERASE AM [employer] leukemia this proced ure are in the results section. LACTATE DEHYDROGENASE Routine 08/20/2022 9:58 Acute lymphoblas tic Results for AM [employer] leukemia this procedure are in the results section. ALKALINE PHOSPHATASE Routine 08/20/2022 9:58 Acute lymphoblast ic Results for AM [employer] leukemia this procedure are in the results section. FRACTIONATED BILIRUBIN Routine 08/20/2022 9:58 Acute lymphobla stic Results for AM [employer] leukemia this procedure are in the results section. 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 GLUCOSE, RANDOM Routine 08/20/2022 9:58 Acute lymphoblastic Re sults for AM [employer] leukemia this procedure are in the results section. PHOSPHORUS LEVEL Routine 08/20/2022 9:58 Acute lymphoblastic R esults for AM [employer] leukemia this procedure are in the results section. CALCIUM LEVEL Routine 08/20/2022 9:58 Acute lymphoblastic Resu lts for AM [employer] leukemia this procedure are in the results section. ALBUMIN LEVEL Routine 08/20/2022 9:58 Acute lymphoblastic Resu lts for AM [employer] leukemia this procedure are in the results section. TOTAL PROTEIN Routine 08/20/2022 9:58 Acute lymphoblastic Resu lts for AM [employer] leukemia this procedure are in the results section. TMP INTERPRETATION Routine 08/18/2022 9:23 Result s for ANTIBODY SCREEN [employer] this procedu re NEGATIVE are in the results section. CLOT EXPIRATION DATE Routine 08/18/2022 9:23 Resu lts for AM [employer] this procedure are in the results section. .GLOMERULAR FILTRATION Routine 08/18/2022 9:23 Acute lymphobla stic Results for RATE AM [employer] leukemia this procedure are in the results section. SERUM CREATININE Routine 08/18/2022 9:23 Acute lymphoblastic R esults for AM [employer] leukemia this procedure are in the results section. ANTIBODY SCREEN Routine 08/18/2022 9:23 Acute lymphoblastic Re sults for AM [employer] leukemia this procedure are in the results section. 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 .CBC STAT 08/18/2022 9:23 Acute lymphoblastic Resul ts for AM [employer] leukemia this procedure are in the results section. MAGNESIUM LEVEL Routine 08/18/2022 9:23 Acute lymphoblastic Re sults for AM [employer] leukemia this procedure are in the results section. ELECTROLYTE PANEL Routine 08/18/2022 9:23 Acute lymphoblastic Results for AM [employer] leukemia this procedure are in the results section. ALANINE Routine 08/18/2022 9:23 Acute lymphoblastic Resul ts for AMINOTRANSFERASE AM [employer] leukemia this proced ure are in the results section. LACTATE DEHYDROGENASE Routine 08/18/2022 9:23 Acute lymphoblas tic Results for AM [employer] leukemia this procedure are in the results section. ALKALINE PHOSPHATASE Routine 08/18/2022 9:23 Acute lymphoblast ic Results for AM [employer] leukemia this procedure are in the results section. FRACTIONATED BILIRUBIN Routine 08/18/2022 9:23 Acute lymphobla stic Results for AM [employer] leukemia this procedure are in the results section. 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 GLUCOSE, RANDOM Routine 08/18/2022 9:23 Acute lymphoblastic Re sults for AM [employer] leukemia this procedure are in the results section. PHOSPHORUS LEVEL Routine 08/18/2022 9:23 Acute lymphoblastic R esults for AM [employer] leukemia this procedure are in the results section. CALCIUM LEVEL Routine 08/18/2022 9:23 Acute lymphoblastic Resu lts for AM [employer] leukemia this procedure are in the results section. ALBUMIN LEVEL Routine 08/18/2022 9:23 Acute lymphoblastic Resu lts for AM [employer] leukemia this procedure are in the results section. TOTAL PROTEIN Routine 08/18/2022 9:23 Acute lymphoblastic Resu lts for AM [employer] leukemia this procedure are in the results section. 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 TMP INTERPRETATION Routine 08/14/2022 9:23 Result s for ANTIBODY SCREEN AM [employer] this procedu re NEGATIVE are in the results section. .GLOMERULAR FILTRATION Routine 08/14/2022 9:23 Acute lymphobla stic Results for RATE AM [employer] leukemia this procedure are in the results section. SERUM CREATININE Routine 08/14/2022 9:23 Acute lymphoblastic R esults for AM [employer] leukemia this procedure are in the results section. ANTIBODY SCREEN Routine 08/14/2022 9:23 Acute lymphoblastic Re sults for AM [employer] leukemia this procedure are in the results section. ABORH Routine 08/14/2022 9:23 Acute lymphoblastic Resul ts for AM [employer] leukemia this procedure are in the results section. DIFFERENTIAL STAT 08/14/2022 9:23 Acute lymphoblastic Resul ts for AM [employer] leukemia this procedure are in the results section. .CBC STAT 08/14/2022 9:23 Acute lymphoblastic Resul ts for AM [employer] leukemia this procedure are in the results section. MAGNESIUM LEVEL Routine 08/14/2022 9:23 Acute lymphoblastic Re sults for AM [employer] leukemia this procedure are in the results section. ELECTROLYTE PANEL Routine 08/14/2022 9:23 Acute lymphoblastic Results for AM [employer] leukemia this procedure are in the results section. ALANINE Routine 08/14/2022 9:23 Acute lymphoblastic Resul ts for AMINOTRANSFERASE AM [employer] leukemia this proced ure are in the results section. LACTATE DEHYDROGENASE Routine 08/14/2022 9:23 Acute lymphoblas tic Results for AM [employer] leukemia this procedure are in the results section. ALKALINE PHOSPHATASE Routine 08/14/2022 9:23 Acute lymphoblast ic Results for AM [employer] leukemia this procedure are in the results section. FRACTIONATED BILIRUBIN Routine 08/14/2022 9:23 Acute lymphobla stic Results for AM [employer] leukemia this procedure are in the results section. 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 GLUCOSE, RANDOM Routine 08/14/2022 9:23 Acute lymphoblastic Re sults for AM [employer] leukemia this procedure are in the results section. PHOSPHORUS LEVEL Routine 08/14/2022 9:23 Acute lymphoblastic R esults for AM [employer] leukemia this procedure are in the results section. CALCIUM LEVEL Routine 08/14/2022 9:23 Acute lymphoblastic Resu lts for AM [employer] leukemia this procedure are in the results section. ALBUMIN LEVEL Routine 08/14/2022 9:23 Acute lymphoblastic Resu lts for AM [employer] leukemia this procedure are in the results section. TOTAL PROTEIN Routine 08/14/2022 9:23 Acute lymphoblastic Resu lts for AM [employer] leukemia this procedure are in the results section. 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 CLOT EXPIRATION DATE Routine 08/11/2022 9:22 Resu lts for AM [employer] this procedure are in the results section. .GLOMERULAR FILTRATION Routine 08/11/2022 9:22 Acute lymphobla stic Results for RATE AM [employer] leukemia this procedure are in the results section. SERUM CREATININE Routine 08/11/2022 9:22 Acute lymphoblastic R esults for AM [employer] leukemia this procedure are in the results section. 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 .CBC STAT 08/11/2022 9:22 Acute lymphoblastic Resul ts for AM [employer] leukemia this procedure are in the results section. ANTIBODY SCREEN Routine 08/11/2022 9:22 Acute lymphoblastic Re sults for AM [employer] leukemia this procedure are in the results section. ABORH Routine 08/11/2022 9:22 Acute lymphoblastic Resul ts for AM [employer] leukemia this procedure are in the results section. MAGNESIUM LEVEL Routine 08/11/2022 9:22 Acute lymphoblastic Re sults for AM [employer] leukemia this procedure are in the results section. ELECTROLYTE PANEL Routine 08/11/2022 9:22 Acute lymphoblastic Results for AM [employer] leukemia this procedure are in the results section. ALANINE Routine 08/11/2022 9:22 Acute lymphoblastic Resul ts for AMINOTRANSFERASE AM [employer] leukemia this proced ure are in the results section. LACTATE DEHYDROGENASE Routine 08/11/2022 9:22 Acute lymphoblas tic Results for AM [employer] leukemia this procedure are in the results section. ALKALINE PHOSPHATASE Routine 08/11/2022 9:22 Acute lymphoblast ic Results for AM [employer] leukemia this procedure are in the results section. FRACTIONATED BILIRUBIN Routine 08/11/2022 9:22 Acute lymphobla stic Results for AM [employer] leukemia this procedure are in the results section. URIC ACID Routine 08/11/2022 9:22 Acute lymphoblastic Resul ts for AM [employer] leukemia this procedure are in the results section. 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 GLUCOSE, RANDOM Routine 08/11/2022 9:22 Acute lymphoblastic Re sults for AM [employer] leukemia this procedure are in the results section. PHOSPHORUS LEVEL Routine 08/11/2022 9:22 Acute lymphoblastic R esults for AM [employer] leukemia this procedure are in the results section. CALCIUM LEVEL Routine 08/11/2022 9:22 Acute lymphoblastic Resu lts for AM [employer] leukemia this procedure are in the results section. ALBUMIN LEVEL Routine 08/11/2022 9:22 Acute lymphoblastic Resu lts for AM [employer] leukemia this procedure are in the results section. TOTAL PROTEIN Routine 08/11/2022 9:22 Acute lymphoblastic Resu lts for AM [employer] leukemia this procedure are in the results section. COMPLETE BLOOD COUNT W/ Routine 08/11/2022 9:22 Acute lymphobl astic DIFFERENTIAL AM [employer] leukemia TYPE AND SCREEN Routine 08/11/2022 9:22 Acute lymphoblastic AM [employer] [facility] leukemia TMP INTERPRETATION Routine 08/08/2022 8:38 Result s for ANTIBODY SCREEN AM [employer] this procedu re NEGATIVE are in the results section. CLOT EXPIRATION DATE Routine 08/08/2022 8:38 Resu lts for AM [employer] this procedure are in the results section. .GLOMERULAR FILTRATION Routine 08/08/2022 8:38 Acute lymphobla stic Results for RATE AM [employer] leukemia this procedure are in the results section. SERUM CREATININE Routine 08/08/2022 8:38 Acute lymphoblastic R esults for AM [employer] leukemia this procedure are in the results section. DIFFERENTIAL STAT 08/08/2022 8:38 Acute lymphoblastic Resul ts for AM [employer] leukemia this procedure are in the results section. .CBC STAT 08/08/2022 8:38 Acute lymphoblastic Resul ts for AM [employer] leukemia this procedure are in the results section. ANTIBODY SCREEN Routine 08/08/2022 8:38 Acute lymphoblastic Re sults for AM [employer] leukemia this procedure are in the results section. ABORH Routine 08/08/2022 8:38 Acute lymphoblastic Resul ts for AM [employer] leukemia this procedure are in the results section. MAGNESIUM LEVEL Routine 08/08/2022 8:38 Acute lymphoblastic Re sults for AM [employer] leukemia this procedure are in the results section. ELECTROLYTE PANEL Routine 08/08/2022 8:38 Acute lymphoblastic Results for AM [employer] leukemia this procedure are in the results section. ALANINE Routine 08/08/2022 8:38 Acute lymphoblastic Resul ts for AMINOTRANSFERASE AM [employer] leukemia this proced ure are in the results section. LACTATE DEHYDROGENASE Routine 08/08/2022 8:38 Acute lymphoblas tic Results for AM [employer] leukemia this procedure are in the results section. ALKALINE PHOSPHATASE Routine 08/08/2022 8:38 Acute lymphoblast ic Results for AM [employer] leukemia this procedure are in the results section. FRACTIONATED BILIRUBIN Routine 08/08/2022 8:38 Acute lymphobla stic Results for AM [employer] leukemia this procedure are in the results section. URIC ACID Routine 08/08/2022 8:38 Acute lymphoblastic Resul ts for AM [employer] leukemia this procedure are in the results section. 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 GLUCOSE, RANDOM Routine 08/08/2022 8:38 Acute lymphoblastic Re sults for AM [employer] leukemia this procedure are in the results section. PHOSPHORUS LEVEL Routine 08/08/2022 8:38 Acute lymphoblastic R esults for AM [employer] leukemia this procedure are in the results section. CALCIUM LEVEL Routine 08/08/2022 8:38 Acute lymphoblastic Resu lts for AM [employer] leukemia this procedure are in the results section. ALBUMIN LEVEL Routine 08/08/2022 8:38 Acute lymphoblastic Resu lts for AM [employer] leukemia this procedure are in the results section. TOTAL PROTEIN Routine 08/08/2022 8:38 Acute lymphoblastic Resu lts for AM [employer] leukemia this procedure are in the results section. 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 CLOT EXPIRATION DATE Routine 08/06/2022 12:05 Res ults for PM [employer] this procedure are in the results section. ANTIBODY SCREEN Routine 08/06/2022 12:05 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 ABORH Routine 08/06/2022 12:05 Acute lymphoblastic Resu lts for PM [employer] leukemia this procedure are in the results section. DIFFERENTIAL STAT 08/06/2022 12:05 Acute lymphoblastic Resu lts for PM [employer] leukemia this procedure are in the results section. .CBC STAT 08/06/2022 12:05 Acute lymphoblastic Resu lts for PM [employer] leukemia this procedure are in the results section. .GLOMERULAR FILTRATION Routine 08/06/2022 12:05 Acute lymphobl astic Results for RATE PM [employer] leukemia this procedure are in the results section. SERUM CREATININE Routine 08/06/2022 12:05 Acute lymphoblastic Results for PM [employer] leukemia this procedure are in the results section. COMPLETE BLOOD COUNT W/ Routine 08/06/2022 12:05 Acute lymphob lastic DIFFERENTIAL PM [employer] leukemia TYPE AND SCREEN Routine 08/06/2022 12:05 Acute lymphoblastic PM [employer] leukemia IMMUNOGLOBULIN G Routine 08/06/2022 12:05 Acute lymphoblastic Results for PM [employer] leukemia this procedure are in the results section. IMMUNOGLOBULIN M Routine 08/06/2022 12:05 Acute lymphoblastic Results for PM [employer] leukemia this procedure are in the results section. IMMUNOGLOBULIN A Routine 08/06/2022 12:05 Acute lymphoblastic Results for PM [employer] leukemia this procedure are in the results section. MAGNESIUM LEVEL Routine 08/06/2022 12:05 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 ELECTROLYTE PANEL Routine 08/06/2022 12:05 Acute lymphoblastic Results for PM [employer] leukemia this procedure are in the results section. ALANINE Routine 08/06/2022 12:05 Acute lymphoblastic Resu lts for AMINOTRANSFERASE PM [employer] leukemia this proced ure are in the results section. LACTATE DEHYDROGENASE Routine 08/06/2022 12:05 Acute lymphobla stic Results for PM [employer] leukemia this procedure are in the results section. ALKALINE PHOSPHATASE Routine 08/06/2022 12:05 Acute lymphoblas tic Results for PM [employer] leukemia this procedure are in the results section. FRACTIONATED BILIRUBIN Routine 08/06/2022 12:05 Acute lymphobl astic Results for PM [employer] leukemia this procedure are in the results section. URIC ACID Routine 08/06/2022 12:05 Acute lymphoblastic Resu lts for PM [employer] leukemia this procedure are in the results section. CREATININE Routine 08/06/2022 12:05 Acute lymphoblastic PM [employer] leukemia BLOOD UREA NITROGEN Routine 08/06/2022 12:05 Acute lymphoblast ic Results for PM [employer] leukemia this procedure are in the results section. GLUCOSE, RANDOM Routine 08/06/2022 12:05 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 PHOSPHORUS LEVEL Routine 08/06/2022 12:05 Acute lymphoblastic Results for PM [employer] leukemia this procedure are in the results section. CALCIUM LEVEL Routine 08/06/2022 12:05 Acute lymphoblastic Res ults for PM [employer] leukemia this procedure are in the results section. ALBUMIN LEVEL Routine 08/06/2022 12:05 Acute lymphoblastic Res ults for PM [employer] leukemia this procedure are in the results section. TOTAL PROTEIN Routine 08/06/2022 12:05 Acute lymphoblastic Res ults for PM [employer] leukemia this procedure are in the results section. 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 PREPARE RBC Routine 08/04/2022 10:51 Acute lymphoblastic Resu lts for AM [employer] leukemia this procedure are in the results section. TMP INTERPRETATION Routine 08/04/2022 8:40 Result s for ANTIBODY SCREEN AM [employer] this procedu re NEGATIVE are in the results section. CLOT EXPIRATION DATE Routine 08/04/2022 8:40 Resu lts for AM [employer] this procedure are in the results section. DIFFERENTIAL CANCEL Routine 08/04/2022 8:40 Resul ts for AM [employer] this procedure are in the results section. 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 .CBC Routine 08/04/2022 8:40 Acute lymphoblastic Resul ts for AM [employer] leukemia this procedure are in the results section. ANTIBODY SCREEN Routine 08/04/2022 8:40 Acute lymphoblastic Re sults for AM [employer] leukemia this procedure are in the results section. ABORH Routine 08/04/2022 8:40 Acute lymphoblastic Resul ts for AM [employer] leukemia this procedure are in the results section. MAGNESIUM LEVEL Routine 08/04/2022 8:40 Acute lymphoblastic Re sults for AM [employer] leukemia this procedure are in the results section. 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 ALANINE Routine 08/04/2022 8:40 Acute lymphoblastic Resul ts for AMINOTRANSFERASE AM [employer] leukemia this proced ure are in the results section. LACTATE DEHYDROGENASE Routine 08/04/2022 8:40 Acute lymphoblas tic Results for AM [employer] leukemia this procedure are in the results section. ALKALINE PHOSPHATASE Routine 08/04/2022 8:40 Acute lymphoblast ic Results for AM [employer] leukemia this procedure are in the results section. FRACTIONATED BILIRUBIN Routine 08/04/2022 8:40 Acute lymphobla stic Results for AM [employer] leukemia this procedure are in the results section. URIC ACID Routine 08/04/2022 8:40 Acute lymphoblastic Resul ts for AM [employer] leukemia this procedure are in the results section. 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 GLUCOSE, RANDOM Routine 08/04/2022 8:40 Acute lymphoblastic Re sults for AM [employer] leukemia this procedure are in the results section. PHOSPHORUS LEVEL Routine 08/04/2022 8:40 Acute lymphoblastic R esults for AM [employer] leukemia this procedure are in the results section. CALCIUM LEVEL Routine 08/04/2022 8:40 Acute lymphoblastic Resu lts for AM [employer] leukemia this procedure are in the results section. ALBUMIN LEVEL Routine 08/04/2022 8:40 Acute lymphoblastic Resu lts for AM [employer] leukemia this procedure are in the results section. TOTAL PROTEIN Routine 08/04/2022 8:40 Acute lymphoblastic Resu lts for AM [employer] leukemia this procedure are in the results section. 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 CLOT EXPIRATION DATE Routine 08/01/2022 8:58 Resu lts for AM [employer] this procedure are in the results section. TMP INTERPRETATION Routine 08/01/2022 8:58 Result s for ANTIBODY SCREEN AM [employer] this procedu re NEGATIVE are in the results section. DIFFERENTIAL CANCEL STAT 08/01/2022 8:58 Resul ts for AM [employer] this procedure are in the results section. ANTIBODY SCREEN Routine 08/01/2022 8:58 Acute lymphoblastic Re sults for AM [employer] leukemia this procedure are in the results section. ABORH Routine 08/01/2022 8:58 Acute lymphoblastic Resul ts for AM [employer] leukemia this procedure are in the results section. .GLOMERULAR FILTRATION Routine 08/01/2022 8:58 Acute lymphobla stic Results for RATE AM [employer] leukemia this procedure are in the results section. SERUM CREATININE Routine 08/01/2022 8:58 Acute lymphoblastic R esults for AM [employer] leukemia this procedure are in the results section. .CBC STAT 08/01/2022 8:58 Acute lymphoblastic Resul ts for AM [employer] leukemia this procedure are in the results section. MAGNESIUM LEVEL Routine 08/01/2022 8:58 Acute lymphoblastic Re sults for AM [employer] leukemia this procedure are in the results section. 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 ALANINE Routine 08/01/2022 8:58 Acute lymphoblastic Resul ts for AMINOTRANSFERASE AM [employer] leukemia this proced ure are in the results section. LACTATE DEHYDROGENASE Routine 08/01/2022 8:58 Acute lymphoblas tic Results for AM [employer] leukemia this procedure are in the results section. ALKALINE PHOSPHATASE Routine 08/01/2022 8:58 Acute lymphoblast ic Results for AM [employer] leukemia this procedure are in the results section. FRACTIONATED BILIRUBIN Routine 08/01/2022 8:58 Acute lymphobla stic Results for AM [employer] leukemia this procedure are in the results section. URIC ACID Routine 08/01/2022 8:58 Acute lymphoblastic Resul ts for AM [employer] leukemia this procedure are in the results section. 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 GLUCOSE, RANDOM Routine 08/01/2022 8:58 Acute lymphoblastic Re sults for AM [employer] leukemia this procedure are in the results section. PHOSPHORUS LEVEL Routine 08/01/2022 8:58 Acute lymphoblastic R esults for AM [employer] leukemia this procedure are in the results section. CALCIUM LEVEL Routine 08/01/2022 8:58 Acute lymphoblastic Resu lts for AM [employer] leukemia this procedure are in the results section. ALBUMIN LEVEL Routine 08/01/2022 8:58 Acute lymphoblastic Resu lts for AM [employer] leukemia this procedure are in the results section. TOTAL PROTEIN Routine 08/01/2022 8:58 Acute lymphoblastic Resu lts for AM [employer] leukemia this procedure are in the results section. 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 HEMATOPATHOLOGY BONE Routine 07/30/2022 1:33 Acute lymphoblast ic Results for MARROW DIFFERENTIAL PM [employer] leukemia this pro cedure are in the results section. HEMATOPATHOLOGY BONE Routine 07/30/2022 1:33 Acute lymphoblast ic Results for MARROW INTERPRETATION PM [employer] leukemia this p rocedure are in the results section. HP CG CHROMOSOME Routine 07/30/2022 1:32 ANALYSIS INTERPRETATION PM [employer] AND REPORT HP FC FLOW CYTOMETRY Routine 07/30/2022 1:32 Resu lts for BLOOD COLLECTION PM [employer] this proced ure are in the results section. HP CYTOGENETICS BLOOD Routine 07/30/2022 1:32 Res ults for COLLECTION PM [employer] this procedure are in the results section. HP FC MRD B ALL Routine 07/30/2022 1:32 Acute lymphoblastic Re sults for COLLECTION, NONBLOOD PM [employer] leukemia this pr ocedure are in the results section. HP CG CHROMOSOME Routine 07/30/2022 1:32 Acute lymphoblastic R esults for ANALYSIS COLLECTION, PM [employer] leukemia this pr ocedure NONBLOOD are in the results section. ADAPTIVE CLONOSEQ-SEND Routine 07/30/2022 1:32 Acute lymphobla stic Results for OUT, BONE MARROW PM [employer] [facility] leukemia this proced ure are in the results section. HP T(9;22) BCR/ABL1 Routine 07/30/2022 12:47 QUANTITATIVE PCR PM [employer] INTERPRETATION AND REPORT HP MOLECULAR BLOOD Routine 07/30/2022 12:47 Resul ts for COLLECTION PM [employer] this procedure are in the results section. DIFFERENTIAL CANCEL Routine 07/30/2022 11:33 Resu lts for AM [employer] this procedure are in the results section. .CBC Routine 07/30/2022 11:33 Acute lymphoid Results f or AM [employer] leukemia this procedure are in the results section. 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 PREPARE RBC Routine 07/29/2022 9:33 Acute lymphoblastic Resul ts for AM [employer] leukemia this procedure are in the results section. TMP INTERPRETATION Routine 07/29/2022 8:46 Result s for ANTIBODY SCREEN AM [employer] this procedu re NEGATIVE are in the results section. CLOT EXPIRATION DATE Routine 07/29/2022 8:46 Resu lts for AM [employer] this procedure are in the results section. HP FC LYMPHOCYTE SUBSET Routine 07/29/2022 8:46 R esults for AM [employer] this procedure are in the results section. HP FC CAR19 ([id number]) Routine 07/29/2022 8:46 FINAL REPORT AM [employer] HP FC FLOW CYTOMETRY Routine 07/29/2022 8:46 Resu lts for BLOOD COLLECTION AM [employer] this proced ure are in the results section. DIFFERENTIAL CANCEL STAT 07/29/2022 8:46 Resul ts for AM [employer] this procedure are in the results section. CYTOKINE PANEL 3 FINAL Routine 07/29/2022 8:46 REPORT AM [employer] ANTIBODY SCREEN Routine 07/29/2022 8:46 Acute lymphoblastic Re sults for AM [employer] leukemia this procedure are in the results section. ABORH Routine 07/29/2022 8:46 Acute lymphoblastic Resul ts for AM [employer] leukemia this procedure are in the results section. .CBC STAT 07/29/2022 8:46 Acute lymphoblastic Resul ts for AM [employer] leukemia this procedure are in the results section. .GLOMERULAR FILTRATION Routine 07/29/2022 8:46 Acute lymphobla stic Results for RATE AM [employer] leukemia this procedure are in the results section. SERUM CREATININE Routine 07/29/2022 8:46 Acute lymphoblastic R esults for AM [employer] leukemia this procedure are in the results section. CYTOKINE PANEL 3 Routine 07/29/2022 8:46 Acute lymphoblastic R esults for AM [employer] leukemia this procedure are in the results section. HP T(9;22) BCR/ABL1 Routine 07/29/2022 8:46 Acute lymphobla stic Results for QUANTITATIVE PCR AM [employer] [facility] leukemia not having this procedure COLLECTION, BLOOD achieved remission are in the results section. FERRITIN Routine 07/29/2022 8:46 Acute lymphoblastic Resul ts for AM [employer] leukemia this procedure are in the results section. 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 HP FC LYMPHOCYTE SUBSET Routine 07/29/2022 8:46 Acute lymphobl astic Results for COLLECTION, BLOOD AM [employer] leukemia this proce dure are in the results section. HP FC CAR19 ([id number]) Routine 07/29/2022 8:46 Acute lymphoblasti c Results for COLLECTION, BLOOD AM [employer] leukemia this proce dure are in the results section. PERIPHERAL SMR FOR BONE Routine 07/29/2022 8:46 Acute lymphobl astic Results for MARROW AM [employer] leukemia this procedure are in the results section. APTT Routine 07/29/2022 8:46 Acute lymphoblastic Resul ts for AM [employer] leukemia this procedure are in the results section. PROTHROMBIN TIME Routine 07/29/2022 8:46 Acute lymphoblastic R esults for AM [employer] leukemia this procedure are in the results section. 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 ASPARTATE Routine 07/29/2022 8:46 Acute lymphoblastic Resul ts for AMINOTRANSFERASE AM [employer] leukemia this proced ure are in the results section. MAGNESIUM LEVEL Routine 07/29/2022 8:46 Acute lymphoblastic Re sults for AM [employer] leukemia this procedure are in the results section. 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 ALANINE Routine 07/29/2022 8:46 Acute lymphoblastic Resul ts for AMINOTRANSFERASE AM [employer] leukemia this proced ure are in the results section. LACTATE DEHYDROGENASE Routine 07/29/2022 8:46 Acute lymphoblas tic Results for AM [employer] leukemia this procedure are in the results section. ALKALINE PHOSPHATASE Routine 07/29/2022 8:46 Acute lymphoblast ic Results for AM [employer] leukemia this procedure are in the results section. FRACTIONATED BILIRUBIN Routine 07/29/2022 8:46 Acute lymphobla stic Results for AM [employer] leukemia this procedure are in the results section. URIC ACID Routine 07/29/2022 8:46 Acute lymphoblastic Resul ts for AM [employer] leukemia this procedure are in the results section. 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 GLUCOSE, RANDOM Routine 07/29/2022 8:46 Acute lymphoblastic Re sults for AM [employer] leukemia this procedure are in the results section. PHOSPHORUS LEVEL Routine 07/29/2022 8:46 Acute lymphoblastic R esults for AM [employer] leukemia this procedure are in the results section. CALCIUM LEVEL Routine 07/29/2022 8:46 Acute lymphoblastic Resu lts for AM [employer] leukemia this procedure are in the results section. ALBUMIN LEVEL Routine 07/29/2022 8:46 Acute lymphoblastic Resu lts for AM [employer] leukemia this procedure are in the results section. TOTAL PROTEIN Routine 07/29/2022 8:46 Acute lymphoblastic Resu lts for AM [employer] leukemia this procedure are in the results section. TMP CROSSMATCH Routine 07/26/2022 7:47 Results fo r INTERPRETATION AM [employer] this procedur e are in the results section. CLOT EXPIRATION DATE Routine 07/26/2022 7:47 Resu lts for AM [employer] this procedure are in the results section. TMP INTERPRETATION Routine 07/26/2022 7:47 Result s for ANTIBODY SCREEN AM [employer] this procedu re NEGATIVE are in the results section. DIFFERENTIAL CANCEL Routine 07/26/2022 7:47 Resul ts for AM [employer] this procedure are in the results section. .GLOMERULAR FILTRATION Routine 07/26/2022 7:47 Acute lymphoid Results for RATE AM [employer] leukemia this procedure are in the results section. SERUM CREATININE Routine 07/26/2022 7:47 Acute lymphoid Result s for AM [employer] leukemia this procedure are in the results section. .CBC Routine 07/26/2022 7:47 Acute lymphoid Results fo r AM [employer] leukemia this procedure are in the results section. ANTIBODY SCREEN Routine 07/26/2022 7:47 Acute lymphoid Results for AM [employer] leukemia this procedure are in the results section. ABORH Routine 07/26/2022 7:47 Acute lymphoid Results fo r AM [employer] leukemia this procedure are in the results section. MAGNESIUM LEVEL Routine 07/26/2022 7:47 Acute lymphoid Results for AM [employer] leukemia this procedure are in the results section. ELECTROLYTE PANEL Routine 07/26/2022 7:47 Acute lymphoid Resul ts for AM [employer] leukemia this procedure are in the results section. ALANINE Routine 07/26/2022 7:47 Acute lymphoid Results fo r AMINOTRANSFERASE AM [employer]ER leukemia this proced ure are in the results section. LACTATE DEHYDROGENASE Routine 07/26/2022 7:47 Acute lymphoid R esults for AM [employer] leukemia this procedure are in the results section. ALKALINE PHOSPHATASE Routine 07/26/2022 7:47 Acute lymphoid Re sults for AM [employer]ER leukemia this procedure are in the results section. FRACTIONATED BILIRUBIN Routine 07/26/2022 7:47 Acute lymphoid Results for AM [employer] leukemia this procedure are in the results section. URIC ACID Routine 07/26/2022 7:47 Acute lymphoid Results fo r AM [employer] leukemia this procedure are in the results section. CREATININE Routine 07/26/2022 7:47 Acute lymphoid AM [employer] leukemia BLOOD UREA NITROGEN Routine 07/26/2022 7:47 Acute lymphoid Res ults for AM [employer] leukemia this procedure are in the results section. GLUCOSE, RANDOM Routine 07/26/2022 7:47 Acute lymphoid Results for AM [employer] leukemia this procedure are in the results section. PHOSPHORUS LEVEL Routine 07/26/2022 7:47 Acute lymphoid Result s for AM [employer] leukemia this procedure are in the results section. CALCIUM LEVEL Routine 07/26/2022 7:47 Acute lymphoid Results f or AM [employer] leukemia this procedure are in the results section. ALBUMIN LEVEL Routine 07/26/2022 7:47 Acute lymphoid Results f or AM [employer] leukemia this procedure are in the results section. TOTAL PROTEIN Routine 07/26/2022 7:47 Acute lymphoid Results f or AM [employer] leukemia this procedure are in the results section. COMPLETE BLOOD COUNT W/ Routine 07/26/2022 7:47 Acute lymphoid DIFFERENTIAL AM [employer] leukemia TYPE AND SCREEN Routine 07/26/2022 7:47 Acute lymphoid AM [employer] leukemia TRANSFUSE RED BLOOD Routine 07/24/2022 2:55 Acute lymphoblasti c CELLS PM [employer] leukemia TRANSFUSE PLATELETS Routine 07/24/2022 1:05 Acute lymphoblasti c PM [employer] leukemia PREPARE PLATELETS Routine 07/24/2022 12:53 Result s for PM [employer] this procedure are in the results section. 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 PREPARE PLATELETS Routine 07/24/2022 9:52 Acute lymphoblastic Results for AM [employer] leukemia this procedure are in the results section. 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 PREPARE RBC Routine 07/24/2022 9:51 Acute lymphoblastic Resul ts for AM [employer] leukemia this procedure are in the results section. DIFFERENTIAL CANCEL STAT 07/24/2022 8:47 Resul ts for AM [employer] this procedure are in the results section. .CBC STAT 07/24/2022 8:47 [place] Results for AM [employer] chromosome-positive this pro cedure acute lymphoblastic are in t he leukemia results section. FRACTIONATED BILIRUBIN Routine 07/24/2022 8:47 [place] Re sults for AM [employer] chromosome-positive this pro cedure acute lymphoblastic are in t he leukemia results section. TOTAL PROTEIN Routine 07/24/2022 8:47 [place] Results for AM [employer] chromosome-positive this pro cedure acute lymphoblastic are in t he leukemia results section. ASPARTATE Routine 07/24/2022 8:47 [place] Results for AMINOTRANSFERASE AM [employer] chromosome-positive this procedure acute lymphoblastic are in t he leukemia results section. ALANINE Routine 07/24/2022 8:47 [place] Results for AMINOTRANSFERASE AM [employer] chromosome-positive this procedure acute lymphoblastic are in t he leukemia results section. ALKALINE PHOSPHATASE Routine 07/24/2022 8:47 [place] Resu lts for AM [employer] chromosome-positive this pro cedure acute lymphoblastic are in t he leukemia results section. ALBUMIN LEVEL Routine 07/24/2022 8:47 [place] Results for AM [employer] chromosome-positive this pro cedure acute lymphoblastic are in t he leukemia results section. CALCIUM LEVEL Routine 07/24/2022 8:47 [place] Results for AM [employer] chromosome-positive this pro cedure acute lymphoblastic are in t he leukemia results section. .GLOMERULAR FILTRATION Routine 07/24/2022 8:47 [place] Re sults for RATE AM [employer] chromosome-positive this pro cedure acute lymphoblastic are in t he leukemia results section. SERUM CREATININE Routine 07/24/2022 8:47 [place] Results for AM [employer] chromosome-positive this pro cedure acute lymphoblastic are in t he leukemia results section. ELECTROLYTE PANEL Routine 07/24/2022 8:47 [place] Results for AM [employer] chromosome-positive this pro cedure acute lymphoblastic are in t he leukemia results section. BLOOD UREA NITROGEN Routine 07/24/2022 8:47 [place] Resul ts for AM [employer] chromosome-positive this pro cedure acute lymphoblastic are in t he leukemia results section. GLUCOSE LEVEL Routine 07/24/2022 8:47 [place] Results for AM [employer] chromosome-positive this pro cedure acute lymphoblastic are in t he leukemia results section. URIC ACID Routine 07/24/2022 8:47 [place] Results for AM [employer] chromosome-positive this pro cedure acute lymphoblastic are in t he leukemia results section. MAGNESIUM LEVEL Routine 07/24/2022 8:47 [place] Results f or AM [employer] chromosome-positive this pro cedure acute lymphoblastic are in t he leukemia results section. PHOSPHORUS LEVEL Routine 07/24/2022 8:47 [place] Results for AM [employer] chromosome-positive this pro cedure acute lymphoblastic are in t he leukemia results section. FERRITIN Routine 07/24/2022 8:47 [place] Results for AM [employer] chromosome-positive this pro cedure acute lymphoblastic are in t he leukemia results section. C REACTIVE PROTEIN Routine 07/24/2022 8:47 [place] Result s for AM [employer] chromosome-positive this pro cedure acute lymphoblastic are in t he leukemia results section. FIBRINOGEN Routine 07/24/2022 8:47 [place] Results for AM [employer] chromosome-positive this pro cedure acute lymphoblastic are in t he leukemia results section. D DIMER Routine 07/24/2022 8:47 [place] Results for AM [employer] chromosome-positive this pro cedure acute lymphoblastic are in t he leukemia results section. APTT Routine 07/24/2022 8:47 [place] Results for AM [employer] chromosome-positive this pro cedure acute lymphoblastic are in t he leukemia results section. PROTHROMBIN TIME Routine 07/24/2022 8:47 [place] Results for AM [employer] chromosome-positive this pro cedure acute lymphoblastic are in t he leukemia results section. COMPLETE BLOOD COUNT W/ Routine 07/24/2022 8:47 [place] DIFFERENTIAL AM [employer] chromosome-positive acute lymphoblastic leukemia COMPREHENSIVE METABOLIC Routine 07/24/2022 8:47 [place] PANEL AM [employer] chromosome-positive acute lymphoblastic leukemia TMP EXCEPTION Routine 07/22/2022 5:00 Results for PM [employer] this procedure are in the results section. TRANSFUSE PLATELETS Routine 07/22/2022 4:55 Acute lymphoblasti c PM [employer] leukemia PREPARE PLATELETS Routine 07/22/2022 4:37 Results for PM [employer] this procedure are in the results section. 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 PREPARE PLATELETS Routine 07/22/2022 1:11 Acute lymphoblastic Results for PM [employer] leukemia this procedure are in the results section. TMP CROSSMATCH Routine 07/22/2022 11:08 Results f or INTERPRETATION AM [employer] this procedur e are in the results section. TMP INTERPRETATION Routine 07/22/2022 11:08 Resul ts for ANTIBODY SCREEN AM [employer] this procedu re NEGATIVE are in the results section. CLOT EXPIRATION DATE Routine 07/22/2022 11:08 Res ults for AM [employer] this procedure are in the results section. DIFFERENTIAL CANCEL STAT 07/22/2022 11:08 Resu lts for AM [employer] this procedure are in the results section. .GLOMERULAR FILTRATION Routine 07/22/2022 11:08 Acute lymphoid Results for RATE AM [employer] leukemia this procedure are in the results section. SERUM CREATININE Routine 07/22/2022 11:08 Acute lymphoid Resul ts for AM [employer] leukemia this procedure are in the results section. .CBC STAT 07/22/2022 11:08 Acute lymphoid Results f or AM [employer] leukemia this procedure are in the results section. ANTIBODY SCREEN Routine 07/22/2022 11:08 Acute lymphoid Result s for AM [employer] leukemia this procedure are in the results section. ABORH Routine 07/22/2022 11:08 Acute lymphoid Results f or AM [employer] leukemia this procedure are in the results section. 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 ELECTROLYTE PANEL Routine 07/22/2022 11:08 Acute lymphoid Resu lts for AM [employer] leukemia this procedure are in the results section. ALANINE Routine 07/22/2022 11:08 Acute lymphoid Results f or AMINOTRANSFERASE AM [employer] leukemia this proced ure are in the results section. 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 ALKALINE PHOSPHATASE Routine 07/22/2022 11:08 Acute lymphoid R esults for AM [employer] leukemia this procedure are in the results section. 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 URIC ACID Routine 07/22/2022 11:08 Acute lymphoid Results f or AM [employer] leukemia this procedure are in the results section. 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 PHOSPHORUS LEVEL Routine 07/22/2022 11:08 Acute lymphoid Resul ts for AM [employer] leukemia this procedure are in the results section. 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 PLT PRODUCT READY FOR Routine 07/18/2022 1:41 Res ults for METAL FENCE ERECTOR AM [employer] this procedure are in the results section. PREPARE PLATELETS Routine 07/18/2022 1:41 Results for AM [employer] this procedure are in the results section. CYTOKINE PANEL 3 FINAL Now 07/18/2022 12:47 REPORT AM [employer] FRACTIONATED BILIRUBIN AM 07/18/2022 12:47 R esults for AM [employer] this procedure are in the results section. TOTAL PROTEIN AM 07/18/2022 12:47 Results fo r AM [employer] this procedure are in the results section. ASPARTATE AM 07/18/2022 12:47 Results for AMINOTRANSFERASE AM [employer] this proced ure are in the results section. ALANINE AM 07/18/2022 12:47 Results for AMINOTRANSFERASE AM [employer] this proced ure are in the results section. ALKALINE PHOSPHATASE AM 07/18/2022 12:47 Res ults for AM [employer] this procedure are in the results section. ALBUMIN LEVEL AM 07/18/2022 12:47 Results fo r AM [employer] this procedure are in the results section. CALCIUM LEVEL AM 07/18/2022 12:47 Results fo r AM [employer] this procedure are in the results section. .GLOMERULAR FILTRATION AM 07/18/2022 12:47 R esults for RATE AM [employer] this procedure are in the results section. SERUM CREATININE AM 07/18/2022 12:47 Results for AM [employer] this procedure are in the results section. ELECTROLYTE PANEL AM 07/18/2022 12:47 Result s for AM [employer] this procedure are in the results section. BLOOD UREA NITROGEN AM 07/18/2022 12:47 Resu lts for AM [employer] this procedure are in the results section. GLUCOSE LEVEL AM 07/18/2022 12:47 Results fo r AM [employer] this procedure are in the results section. DIFFERENTIAL AM 07/18/2022 12:47 Results for AM [employer] this procedure are in the results section. .CBC AM 07/18/2022 12:47 Results for AM [employer] this procedure are in the results section. LACTIC ACID, VENOUS AM 07/18/2022 12:47 Resu lts for AM [employer] this procedure are in the results section. PROTHROMBIN TIME AM 07/18/2022 12:47 Results for AM [employer] this procedure are in the results section. FIBRINOGEN AM 07/18/2022 12:47 Results for AM [employer] this procedure are in the results section. CALCIUM IONIZED, VENOUS AM 07/18/2022 12:47 Results for AM [employer] this procedure are in the results section. C REACTIVE PROTEIN AM 07/18/2022 12:47 Resul ts for AM [employer] this procedure are in the results section. FERRITIN AM 07/18/2022 12:47 Results for AM [employer] this procedure are in the results section. LACTATE DEHYDROGENASE AM 07/18/2022 12:47 Re sults for AM [employer] this procedure are in the results section. URIC ACID AM 07/18/2022 12:47 Results for AM [employer] this procedure are in the results section. PHOSPHORUS LEVEL AM 07/18/2022 12:47 Results for AM [employer] this procedure are in the results section. MAGNESIUM LEVEL AM 07/18/2022 12:47 Results for AM [employer] this procedure are in the results section. COMPREHENSIVE METABOLIC AM 07/18/2022 12:47 PANEL AM [employer] COMPLETE BLOOD COUNT W/ AM 07/18/2022 12:47 DIFFERENTIAL AM [employer] CYTOKINE PANEL 3 Now 07/18/2022 12:47 Results for AM [employer] this procedure are in the results section. HP FC CAR19 ([id number]) Now 07/17/2022 10:41 FINAL REPORT AM [employer] HP FC FLOW CYTOMETRY Now 07/17/2022 10:41 Res ults for BLOOD COLLECTION AM [employer] this proced ure are in the results section. CYTOKINE PANEL 3 FINAL Routine 07/17/2022 10:41 REPORT AM [employer] CYTOKINE PANEL 3 Routine 07/17/2022 10:41 Results for AM [employer] this procedure are in the results section. HP FC CAR19 ([id number]) Now 07/17/2022 10:41 Resu lts for COLLECTION, BLOOD AM [employer] this proce dure are in the results section. FRACTIONATED BILIRUBIN AM 07/17/2022 3:06 Re sults for AM [employer] this procedure are in the results section. TOTAL PROTEIN AM 07/17/2022 3:06 Results for AM [employer] this procedure are in the results section. ASPARTATE AM 07/17/2022 3:06 Results for AMINOTRANSFERASE AM [employer] this proced ure are in the results section. ALANINE AM 07/17/2022 3:06 Results for AMINOTRANSFERASE AM [employer] this proced ure are in the results section. ALKALINE PHOSPHATASE AM 07/17/2022 3:06 Resu lts for AM [employer] this procedure are in the results section. ALBUMIN LEVEL AM 07/17/2022 3:06 Results for AM [employer] this procedure are in the results section. CALCIUM LEVEL AM 07/17/2022 3:06 Results for AM [employer] this procedure are in the results section. .GLOMERULAR FILTRATION AM 07/17/2022 3:06 Re sults for RATE AM [employer] this procedure are in the results section. SERUM CREATININE AM 07/17/2022 3:06 Results for AM [employer] this procedure are in the results section. ELECTROLYTE PANEL AM 07/17/2022 3:06 Results for AM [employer] this procedure are in the results section. BLOOD UREA NITROGEN AM 07/17/2022 3:06 Resul ts for AM [employer] this procedure are in the results section. GLUCOSE LEVEL AM 07/17/2022 3:06 Results for AM [employer] this procedure are in the results section. DIFFERENTIAL AM 07/17/2022 3:06 Results for AM [employer] this procedure are in the results section. .CBC AM 07/17/2022 3:06 Results for AM [employer] this procedure are in the results section. LACTIC ACID, VENOUS AM 07/17/2022 3:06 Resul ts for AM [employer] this procedure are in the results section. PROTHROMBIN TIME AM 07/17/2022 3:06 Results for AM [employer] this procedure are in the results section. FIBRINOGEN AM 07/17/2022 3:06 Results for AM [employer] this procedure are in the results section. CALCIUM IONIZED, VENOUS AM 07/17/2022 3:06 R esults for AM [employer] this procedure are in the results section. C REACTIVE PROTEIN AM 07/17/2022 3:06 Result s for AM [employer] this procedure are in the results section. FERRITIN AM 07/17/2022 3:06 Results for AM [employer] this procedure are in the results section. LACTATE DEHYDROGENASE AM 07/17/2022 3:06 Res ults for AM [employer] this procedure are in the results section. URIC ACID AM 07/17/2022 3:06 Results for AM [employer] this procedure are in the results section. PHOSPHORUS LEVEL AM 07/17/2022 3:06 Results for AM [employer] this procedure are in the results section. MAGNESIUM LEVEL AM 07/17/2022 3:06 Results f or AM [employer] this procedure are in the results section. COMPREHENSIVE METABOLIC AM 07/17/2022 3:06 PANEL AM [employer] COMPLETE BLOOD COUNT W/ AM 07/17/2022 3:06 DIFFERENTIAL AM [employer] D DIMER Routine 07/17/2022 3:06 Results for AM [employer] this procedure are in the results section. APTT Routine 07/17/2022 3:06 Results for AM [employer] this procedure are in the results section. COVID-19 (SARS-COV-2) Now 07/16/2022 11:21 Re sults for PCR - ASYMPTOMATIC - MC AM [employer] this procedure are in the results section. CLOT EXPIRATION DATE Routine 07/16/2022 4:30 Resu lts for AM [employer] this procedure are in the results section. TMP INTERPRETATION Routine 07/16/2022 4:30 Result s for ANTIBODY SCREEN AM [employer] this procedu re NEGATIVE are in the results section. FRACTIONATED BILIRUBIN AM 07/16/2022 4:30 Re sults for AM [employer] this procedure are in the results section. TOTAL PROTEIN AM 07/16/2022 4:30 Results for AM [employer] this procedure are in the results section. ASPARTATE AM 07/16/2022 4:30 Results for AMINOTRANSFERASE AM [employer] this proced ure are in the results section. ALANINE AM 07/16/2022 4:30 Results for AMINOTRANSFERASE AM [employer] this proced ure are in the results section. ALKALINE PHOSPHATASE AM 07/16/2022 4:30 Resu lts for AM [employer] this procedure are in the results section. ALBUMIN LEVEL AM 07/16/2022 4:30 Results for AM [employer] this procedure are in the results section. CALCIUM LEVEL AM 07/16/2022 4:30 Results for AM [employer] this procedure are in the results section. .GLOMERULAR FILTRATION AM 07/16/2022 4:30 Re sults for RATE AM [employer] this procedure are in the results section. SERUM CREATININE AM 07/16/2022 4:30 Results for AM [employer] this procedure are in the results section. ELECTROLYTE PANEL AM 07/16/2022 4:30 Results for AM [employer] this procedure are in the results section. BLOOD UREA NITROGEN AM 07/16/2022 4:30 Resul ts for AM [employer] this procedure are in the results section. GLUCOSE LEVEL AM 07/16/2022 4:30 Results for AM [employer] this procedure are in the results section. DIFFERENTIAL AM 07/16/2022 4:30 Results for AM [employer] this procedure are in the results section. .CBC AM 07/16/2022 4:30 Results for AM [employer] this procedure are in the results section. ANTIBODY SCREEN Routine 07/16/2022 4:30 Results f or AM [employer] this procedure are in the results section. ABORH Routine 07/16/2022 4:30 Results for AM [employer] this procedure are in the results section. LACTIC ACID, VENOUS AM 07/16/2022 4:30 Resul ts for AM [employer] this procedure are in the results section. PROTHROMBIN TIME AM 07/16/2022 4:30 Results for AM [employer] this procedure are in the results section. FIBRINOGEN AM 07/16/2022 4:30 Results for AM [employer] this procedure are in the results section. CALCIUM IONIZED, VENOUS AM 07/16/2022 4:30 R esults for AM [employer] this procedure are in the results section. C REACTIVE PROTEIN AM 07/16/2022 4:30 Result s for AM [employer] this procedure are in the results section. FERRITIN AM 07/16/2022 4:30 Results for AM [employer] this procedure are in the results section. LACTATE DEHYDROGENASE AM 07/16/2022 4:30 Res ults for AM [employer] this procedure are in the results section. URIC ACID AM 07/16/2022 4:30 Results for AM [employer] this procedure are in the results section. PHOSPHORUS LEVEL AM 07/16/2022 4:30 Results for AM [employer] this procedure are in the results section. MAGNESIUM LEVEL AM 07/16/2022 4:30 Results f or AM [employer] this procedure are in the results section. COMPREHENSIVE METABOLIC AM 07/16/2022 4:30 PANEL AM [employer] COMPLETE BLOOD COUNT W/ AM 07/16/2022 4:30 DIFFERENTIAL AM [employer] TYPE AND SCREEN Routine 07/16/2022 4:30 AM [employer]ER FRACTIONATED BILIRUBIN AM 07/15/2022 3:23 Re sults for AM [employer]ER this procedure are in the results section. TOTAL PROTEIN AM 07/15/2022 3:23 Results for AM [employer] this procedure are in the results section. ASPARTATE AM 07/15/2022 3:23 Results for AMINOTRANSFERASE AM [employer] this proced ure are in the results section. ALANINE AM 07/15/2022 3:23 Results for AMINOTRANSFERASE AM [employer] this proced ure are in the results section. ALKALINE PHOSPHATASE AM 07/15/2022 3:23 Resu lts for AM [employer] this procedure are in the results section. ALBUMIN LEVEL AM 07/15/2022 3:23 Results for AM [employer] this procedure are in the results section. CALCIUM LEVEL AM 07/15/2022 3:23 Results for AM [employer] this procedure are in the results section. .GLOMERULAR FILTRATION AM 07/15/2022 3:23 Re sults for RATE AM [employer] this procedure are in the results section. SERUM CREATININE AM 07/15/2022 3:23 Results for AM [employer] this procedure are in the results section. ELECTROLYTE PANEL AM 07/15/2022 3:23 Results for AM [employer] this procedure are in the results section. BLOOD UREA NITROGEN AM 07/15/2022 3:23 Resul ts for AM [employer]ER this procedure are in the results section. GLUCOSE LEVEL AM 07/15/2022 3:23 Results for AM [employer] this procedure are in the results section. DIFFERENTIAL AM 07/15/2022 3:23 Results for AM [employer] this procedure are in the results section. .CBC AM 07/15/2022 3:23 Results for AM [employer] this procedure are in the results section. LACTIC ACID, VENOUS AM 07/15/2022 3:23 Resul ts for AM [employer]ER this procedure are in the results section. PROTHROMBIN TIME AM 07/15/2022 3:23 Results for AM [employer]ER this procedure are in the results section. FIBRINOGEN AM 07/15/2022 3:23 Results for AM [employer]ER this procedure are in the results section. CALCIUM IONIZED, VENOUS AM 07/15/2022 3:23 R esults for AM [employer]ER this procedure are in the results section. CREATINE KINASE Routine 07/15/2022 3:23 Results f or AM [employer] this procedure are in the results section. C REACTIVE PROTEIN AM 07/15/2022 3:23 Result s for AM [employer] this procedure are in the results section. FERRITIN AM 07/15/2022 3:23 Results for AM [employer] this procedure are in the results section. LACTATE DEHYDROGENASE AM 07/15/2022 3:23 Res ults for AM [employer]ER this procedure are in the results section. URIC ACID AM 07/15/2022 3:23 Results for AM [employer]ER this procedure are in the results section. PHOSPHORUS LEVEL AM 07/15/2022 3:23 Results for AM [employer] this procedure are in the results section. MAGNESIUM LEVEL AM 07/15/2022 3:23 Results f or AM [employer] this procedure are in the results section. COMPREHENSIVE METABOLIC AM 07/15/2022 3:23 PANEL AM [employer] COMPLETE BLOOD COUNT W/ AM 07/15/2022 3:23 DIFFERENTIAL AM [employer] EKG, 12-LEAD (PORTABLE) STAT 07/15/2022 CYTOKINE PANEL 3 FINAL Routine 07/14/2022 10:15 REPORT AM [employer]ER HP FC CAR19 ([id number]) Now 07/14/2022 10:15 Resu lts for COLLECTION, BLOOD AM [employer] this proce dure are in the results section. CYTOKINE PANEL 3 Routine 07/14/2022 10:15 Results for AM [employer] this procedure are in the results section. HP FC CAR19 ([id number]) AM 07/14/2022 4:13 FINAL REPORT AM [employer] HP FC FLOW CYTOMETRY AM 07/14/2022 4:13 Resu lts for BLOOD COLLECTION AM [employer]ER this proced ure are in the results section. FIBRINOGEN Routine 07/14/2022 4:13 Results for AM [employer] this procedure are in the results section. PROTHROMBIN TIME Routine 07/14/2022 4:13 Results for AM [employer]ER this procedure are in the results section. 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 FRACTIONATED BILIRUBIN AM 07/14/2022 4:13 Re sults for AM [employer]ER this procedure are in the results section. TOTAL PROTEIN AM 07/14/2022 4:13 Results for AM [employer]ER this procedure are in the results section. ASPARTATE AM 07/14/2022 4:13 Results for AMINOTRANSFERASE AM [employer] ROLLER this proced ure are in the results section. ALANINE AM 07/14/2022 4:13 Results for AMINOTRANSFERASE AM [employer] ROLLER this proced ure are in the results section. ALKALINE PHOSPHATASE AM 07/14/2022 4:13 Resu lts for AM [employer] RO[employer]ER this procedure are in the results section. ALBUMIN LEVEL AM 07/14/2022 4:13 Results for AM HAND ROLLER this procedure are in the results section. CALCIUM LEVEL AM 07/14/2022 4:13 Results for AM HAND ROLLER this procedure are in the results section. .GLOMERULAR FILTRATION AM 07/14/2022 4:13 Re sults for RATE AM HAND ROLLER this procedure are in the results section. SERUM CREATININE AM 07/14/2022 4:13 Results for AM HAND ROLLER this procedure are in the results section. ELECTROLYTE PANEL AM 07/14/2022 4:13 Results for AM HAND ROLLER this procedure are in the results section. BLOOD UREA NITROGEN AM 07/14/2022 4:13 Resul ts for AM HAND ROLLER this procedure are in the results section. GLUCOSE LEVEL AM 07/14/2022 4:13 Results for AM HAND ROLLER this procedure are in the results section. DIFFERENTIAL AM 07/14/2022 4:13 Results for AM HAND ROLLER this procedure are in the results section. .CBC AM 07/14/2022 4:13 Results for AM HAND ROLLER this procedure are in the results section. LACTIC ACID, VENOUS AM 07/14/2022 4:13 Resul ts for AM HAND ROLLER this procedure are in the results section. CALCIUM IONIZED, VENOUS AM 07/14/2022 4:13 R esults for AM HAND ROLLER this procedure are in the results section. HP FC CAR19 ([id number]) AM 07/14/2022 4:13 Resul ts for COLLECTION, BLOOD AM HAND ROLLER this proce dure are in the results section. C REACTIVE PROTEIN AM 07/14/2022 4:13 Result s for AM HAND ROLLER this procedure are in the results section. FERRITIN AM 07/14/2022 4:13 Results for AM HAND ROLLER this procedure are in the results section. LACTATE DEHYDROGENASE AM 07/14/2022 4:13 Res ults for AM HAND ROLLER this procedure are in the results section. URIC ACID AM 07/14/2022 4:13 Results for AM HAND ROLLER this procedure are in the results section. PHOSPHORUS LEVEL AM 07/14/2022 4:13 Results for AM HAND ROLLER this procedure are in the results section. MAGNESIUM LEVEL AM 07/14/2022 4:13 Results f or AM HAND ROLLER this procedure are in the results section. COMPREHENSIVE METABOLIC AM 07/14/2022 4:13 PANEL AM HAND ROLLER COMPLETE BLOOD COUNT W/ AM 07/14/2022 4:13 DIFFERENTIAL AM HAND ROLLER D DIMER Routine 07/14/2022 4:13 Results for AM HAND ROLLER this procedure are in the results section. APTT Routine 07/14/2022 4:13 Results for AM HAND ROLLER this procedure are in the results section. TRANSFUSE PLATELETS Routine 07/13/2022 2:35 PM HAND ROLLER FIBRINOGEN STAT 07/13/2022 3:44 Results for AM HAND ROLLER this procedure are in the results section. PROTHROMBIN TIME STAT 07/13/2022 3:44 Results for AM HAND ROLLER this procedure are in the results section. PLT PRODUCT READY FOR Routine 07/13/2022 3:37 Res ults for METAL FENCE ERECTOR AM HAND ROLLER this procedure are in the results section. PREPARE PLATELETS Routine 07/13/2022 3:37 Results for AM HAND ROLLER this procedure are in the results section. TMP INTERPRETATION Routine 07/13/2022 12:50 Resul ts for ANTIBODY SCREEN AM HAND ROLLER this procedu re NEGATIVE are in the results section. CLOT EXPIRATION DATE Routine 07/13/2022 12:50 Res ults for AM HAND ROLLER this procedure are in the results section. FRACTIONATED BILIRUBIN AM 07/13/2022 12:50 R esults for AM HAND ROLLER this procedure are in the results section. TOTAL PROTEIN AM 07/13/2022 12:50 Results fo r AM HAND ROLLER this procedure are in the results section. ASPARTATE AM 07/13/2022 12:50 Results for AMINOTRANSFERASE AM HAND ROLLER this proced ure are in the results section. ALANINE AM 07/13/2022 12:50 Results for AMINOTRANSFERASE AM HAND ROLLER this proced ure are in the results section. ALKALINE PHOSPHATASE AM 07/13/2022 12:50 Res ults for AM HAND ROLLER this procedure are in the results section. ALBUMIN LEVEL AM 07/13/2022 12:50 Results fo r AM HAND ROLLER this procedure are in the results section. CALCIUM LEVEL AM 07/13/2022 12:50 Results fo r AM HAND ROLLER this procedure are in the results section. .GLOMERULAR FILTRATION AM 07/13/2022 12:50 R esults for RATE AM HAND ROLLER this procedure are in the results section. SERUM CREATININE AM 07/13/2022 12:50 Results for AM HAND ROLLER this procedure are in the results section. ELECTROLYTE PANEL AM 07/13/2022 12:50 Result s for AM HAND ROLLER this procedure are in the results section. BLOOD UREA NITROGEN AM 07/13/2022 12:50 Resu lts for AM HAND ROLLER this procedure are in the results section. GLUCOSE LEVEL AM 07/13/2022 12:50 Results fo r AM HAND ROLLER this procedure are in the results section. DIFFERENTIAL AM 07/13/2022 12:50 Results for AM HAND ROLLER this procedure are in the results section. .CBC AM 07/13/2022 12:50 Results for AM HAND ROLLER this procedure are in the results section. ANTIBODY SCREEN Routine 07/13/2022 12:50 Results for AM HAND ROLLER this procedure are in the results section. ABORH Routine 07/13/2022 12:50 Results for AM HAND ROLLER this procedure are in the results section. LACTIC ACID, VENOUS AM 07/13/2022 12:50 Resu lts for AM HAND ROLLER this procedure are in the results section. CALCIUM IONIZED, VENOUS AM 07/13/2022 12:50 Results for AM HAND ROLLER this procedure are in the results section. C REACTIVE PROTEIN AM 07/13/2022 12:50 Resul ts for AM HAND ROLLER this procedure are in the results section. FERRITIN AM 07/13/2022 12:50 Results for AM HAND ROLLER this procedure are in the results section. LACTATE DEHYDROGENASE AM 07/13/2022 12:50 Re sults for AM HAND ROLLER this procedure are in the results section. URIC ACID AM 07/13/2022 12:50 Results for AM HAND ROLLER this procedure are in the results section. PHOSPHORUS LEVEL AM 07/13/2022 12:50 Results for AM HAND ROLLER this procedure are in the results section. MAGNESIUM LEVEL AM 07/13/2022 12:50 Results for AM HAND ROLLER this procedure are in the results section. COMPREHENSIVE METABOLIC AM 07/13/2022 12:50 PANEL AM HAND ROLLER COMPLETE BLOOD COUNT W/ AM 07/13/2022 12:50 DIFFERENTIAL AM HAND ROLLER TYPE AND SCREEN Routine 07/13/2022 12:[address] SOFT TISSUE NECK W Routine 07/12/2022 10:15 Re sults for CONTRAST PM HAND ROLLER this procedure are in the results section. URINALYSIS WITH Now 07/12/2022 9:12 Results f or MICROSCOPIC AM HAND ROLLER this procedure are in the results section. URINE CULTURE Now 07/12/2022 9:12 Results for AM HAND ROLLER this procedure are in the results section. DIFFERENTIAL STAT 07/12/2022 3:53 Results for AM HAND ROLLER this procedure are in the results section. .CBC STAT 07/12/2022 3:53 Results for AM HAND ROLLER this procedure are in the results section. COMPLETE BLOOD COUNT W/ STAT 07/12/2022 3:53 DIFFERENTIAL AM HAND ROLLER FRACTIONATED BILIRUBIN AM 07/12/2022 2:02 Re sults for AM HAND ROLLER this procedure are in the results section. TOTAL PROTEIN AM 07/12/2022 2:02 Results for AM HAND ROLLER this procedure are in the results section. ASPARTATE AM 07/12/2022 2:02 Results for AMINOTRANSFERASE AM HAND ROLLER this proced ure are in the results section. ALANINE AM 07/12/2022 2:02 Results for AMINOTRANSFERASE AM HAND ROLLER this proced ure are in the results section. ALKALINE PHOSPHATASE AM 07/12/2022 2:02 Resu lts for AM HAND ROLLER this procedure are in the results section. ALBUMIN LEVEL AM 07/12/2022 2:02 Results for AM HAND ROLLER this procedure are in the results section. CALCIUM LEVEL AM 07/12/2022 2:02 Results for AM HAND ROLLER this procedure are in the results section. .GLOMERULAR FILTRATION AM 07/12/2022 2:02 Re sults for RATE AM HAND ROLLER this procedure are in the results section. SERUM CREATININE AM 07/12/2022 2:02 Results for AM HAND ROLLER this procedure are in the results section. ELECTROLYTE PANEL AM 07/12/2022 2:02 Results for AM HAND ROLLER this procedure are in the results section. BLOOD UREA NITROGEN AM 07/12/2022 2:02 Resul ts for AM HAND ROLLER this procedure are in the results section. GLUCOSE LEVEL AM 07/12/2022 2:02 Results for AM HAND ROLLER this procedure are in the results section. LACTIC ACID, VENOUS AM 07/12/2022 2:02 Resul ts for AM HAND ROLLER this procedure are in the results section. PROTHROMBIN TIME AM 07/12/2022 2:02 Results for AM HAND ROLLER this procedure are in the results section. FIBRINOGEN AM 07/12/2022 2:02 Results for AM HAND ROLLER this procedure are in the results section. CALCIUM IONIZED, VENOUS AM 07/12/2022 2:02 R esults for AM HAND ROLLER this procedure are in the results section. C REACTIVE PROTEIN AM 07/12/2022 2:02 Result s for AM HAND ROLLER this procedure are in the results section. FERRITIN AM 07/12/2022 2:02 Results for AM HAND ROLLER this procedure are in the results section. LACTATE DEHYDROGENASE AM 07/12/2022 2:02 Res ults for AM HAND ROLLER this procedure are in the results section. URIC ACID AM 07/12/2022 2:02 Results for AM HAND ROLLER this procedure are in the results section. PHOSPHORUS LEVEL AM 07/12/2022 2:02 Results for AM HAND ROLLER this procedure are in the results section. MAGNESIUM LEVEL AM 07/12/2022 2:02 Results f or AM HAND ROLLER this procedure are in the results section. COMPREHENSIVE METABOLIC AM 07/12/2022 2:02 PANEL AM HAND ROLLER HSV/VZV DNA DETECTION Now 07/11/2022 8:07 Res ults for AM HAND ROLLER this procedure are in the results section. CALCIUM IONIZED, VENOUS STAT 07/11/2022 4:43 R esults for AM HAND ROLLER this procedure are in the results section. HP FC CAR19 ([id number]) AM 07/11/2022 1:46 FINAL REPORT AM HAND ROLLER HP FC FLOW CYTOMETRY AM 07/11/2022 1:46 Resu lts for BLOOD COLLECTION AM HAND ROLLER this proced ure are in the results section. D DIMER AM 07/11/2022 1:46 Results for AM HAND ROLLER this procedure are in the results section. APTT AM 07/11/2022 1:46 Results for AM HAND ROLLER this procedure are in the results section. CYTOKINE PANEL 3 FINAL Now 07/11/2022 1:46 REPORT AM HAND ROLLER FRACTIONATED BILIRUBIN AM 07/11/2022 1:46 Re sults for AM HAND ROLLER this procedure are in the results section. TOTAL PROTEIN AM 07/11/2022 1:46 Results for AM HAND ROLLER this procedure are in the results section. ASPARTATE AM 07/11/2022 1:46 Results for AMINOTRANSFERASE AM HAND ROLLER this proced ure are in the results section. ALANINE AM 07/11/2022 1:46 Results for AMINOTRANSFERASE AM HAND ROLLER this proced ure are in the results section. ALKALINE PHOSPHATASE AM 07/11/2022 1:46 Resu lts for AM HAND ROLLER this procedure are in the results section. ALBUMIN LEVEL AM 07/11/2022 1:46 Results for AM HAND ROLLER this procedure are in the results section. CALCIUM LEVEL AM 07/11/2022 1:46 Results for AM HAND ROLLER this procedure are in the results section. .GLOMERULAR FILTRATION AM 07/11/2022 1:46 Re sults for RATE AM HAND ROLLER this procedure are in the results section. SERUM CREATININE AM 07/11/2022 1:46 Results for AM HAND ROLLER this procedure are in the results section. ELECTROLYTE PANEL AM 07/11/2022 1:46 Results for AM HAND ROLLER this procedure are in the results section. BLOOD UREA NITROGEN AM 07/11/2022 1:46 Resul ts for AM HAND ROLLER this procedure are in the results section. GLUCOSE LEVEL AM 07/11/2022 1:46 Results for AM HAND ROLLER this procedure are in the results section. DIFFERENTIAL AM 07/11/2022 1:46 Results for AM HAND ROLLER this procedure are in the results section. .CBC AM 07/11/2022 1:46 Results for AM HAND ROLLER this procedure are in the results section. PROTHROMBIN TIME AM 07/11/2022 1:46 Results for AM HAND ROLLER this procedure are in the results section. FIBRINOGEN AM 07/11/2022 1:46 Results for AM HAND ROLLER this procedure are in the results section. HP FC CAR19 ([id number]) AM 07/11/2022 1:46 Resul ts for COLLECTION, BLOOD AM HAND ROLLER this proce dure are in the results section. C REACTIVE PROTEIN AM 07/11/2022 1:46 Result s for AM HAND ROLLER this procedure are in the results section. FERRITIN AM 07/11/2022 1:46 Results for AM HAND ROLLER this procedure are in the results section. LACTATE DEHYDROGENASE AM 07/11/2022 1:46 Res ults for AM HAND ROLLER this procedure are in the results section. URIC ACID AM 07/11/2022 1:46 Results for AM HAND ROLLER this procedure are in the results section. PHOSPHORUS LEVEL AM 07/11/2022 1:46 Results for AM HAND ROLLER this procedure are in the results section. MAGNESIUM LEVEL AM 07/11/2022 1:46 Results f or AM HAND ROLLER this procedure are in the results section. COMPREHENSIVE METABOLIC AM 07/11/2022 1:46 PANEL AM HAND ROLLER COMPLETE BLOOD COUNT W/ AM 07/11/2022 1:46 DIFFERENTIAL AM HAND ROLLER CYTOKINE PANEL 3 Now 07/11/2022 1:46 Results for AM HAND ROLLER this procedure are in the results section. CT SOFT TISSUE NECK W STAT 07/10/2022 8:46 Res ults for CONTRAST PM HAND ROLLER this procedure are in the results section. OSCILLATORY PEP Routine 07/10/2022 8:00 PM HAND ROLLER OSCILLATORY PEP Routine 07/10/2022 2:00 PM HAND ROLLER OSCILLATORY PEP Routine 07/10/2022 8:39 AM HAND ROLLER OSCILLATORY PEP Routine 07/10/2022 8:39 AM HAND ROLLER OSCILLATORY PEP Routine 07/10/2022 8:39 AM HAND ROLLER HP FC CAR19 ([id number]) Now 07/10/2022 2:03 FINAL REPORT AM HAND ROLLER HP FC FLOW CYTOMETRY Now 07/10/2022 2:03 Resu lts for BLOOD COLLECTION AM HAND ROLLER this proced ure are in the results section. CLOT EXPIRATION DATE Routine 07/10/2022 2:03 Resu lts for AM HAND ROLLER this procedure are in the results section. TMP INTERPRETATION Routine 07/10/2022 2:03 Result s for ANTIBODY SCREEN AM HAND ROLLER this procedu re NEGATIVE are in the results section. 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 FRACTIONATED BILIRUBIN AM 07/10/2022 2:03 Re sults for AM HAND ROLLER this procedure are in the results section. TOTAL PROTEIN AM 07/10/2022 2:03 Results for AM HAND ROLLER this procedure are in the results section. ASPARTATE AM 07/10/2022 2:03 Results for AMINOTRANSFERASE AM HAND ROLLER this proced ure are in the results section. ALANINE AM 07/10/2022 2:03 Results for AMINOTRANSFERASE AM HAND ROLLER this proced ure are in the results section. ALKALINE PHOSPHATASE AM 07/10/2022 2:03 Resu lts for AM HAND ROLLER this procedure are in the results section. ALBUMIN LEVEL AM 07/10/2022 2:03 Results for AM HAND ROLLER this procedure are in the results section. CALCIUM LEVEL AM 07/10/2022 2:03 Results for AM HAND ROLLER this procedure are in the results section. .GLOMERULAR FILTRATION AM 07/10/2022 2:03 Re sults for RATE AM HAND ROLLER this procedure are in the results section. SERUM CREATININE AM 07/10/2022 2:03 Results for AM HAND ROLLER this procedure are in the results section. ELECTROLYTE PANEL AM 07/10/2022 2:03 Results for AM HAND ROLLER this procedure are in the results section. BLOOD UREA NITROGEN AM 07/10/2022 2:03 Resul ts for AM HAND ROLLER this procedure are in the results section. GLUCOSE LEVEL AM 07/10/2022 2:03 Results for AM HAND ROLLER this procedure are in the results section. DIFFERENTIAL AM 07/10/2022 2:03 Results for AM HAND ROLLER this procedure are in the results section. .CBC AM 07/10/2022 2:03 Results for AM HAND ROLLER this procedure are in the results section. ANTIBODY SCREEN Routine 07/10/2022 2:03 Results f or AM HAND ROLLER this procedure are in the results section. ABORH Routine 07/10/2022 2:03 Results for AM HAND ROLLER this procedure are in the results section. HP FC CAR19 ([id number]) Now 07/10/2022 2:03 Resul ts for COLLECTION, BLOOD AM HAND ROLLER this proce dure are in the results section. PROTHROMBIN TIME AM 07/10/2022 2:03 Results for AM HAND ROLLER this procedure are in the results section. FIBRINOGEN AM 07/10/2022 2:03 Results for AM HAND ROLLER this procedure are in the results section. CALCIUM IONIZED, VENOUS AM 07/10/2022 2:03 R esults for AM HAND ROLLER this procedure are in the results section. C REACTIVE PROTEIN AM 07/10/2022 2:03 Result s for AM HAND ROLLER this procedure are in the results section. FERRITIN AM 07/10/2022 2:03 Results for AM HAND ROLLER this procedure are in the results section. LACTATE DEHYDROGENASE AM 07/10/2022 2:03 Res ults for AM HAND ROLLER this procedure are in the results section. URIC ACID AM 07/10/2022 2:03 Results for AM HAND ROLLER this procedure are in the results section. PHOSPHORUS LEVEL AM 07/10/2022 2:03 Results for AM HAND ROLLER this procedure are in the results section. MAGNESIUM LEVEL AM 07/10/2022 2:03 Results f or AM HAND ROLLER this procedure are in the results section. COMPREHENSIVE METABOLIC AM 07/10/2022 2:03 PANEL AM HAND ROLLER COMPLETE BLOOD COUNT W/ AM 07/10/2022 2:03 DIFFERENTIAL AM HAND ROLLER TYPE AND SCREEN Routine 07/10/2022 2:03 AM HAND ROLLER LACTIC ACID, VENOUS AM 07/10/2022 2:03 Resul ts for AM HAND ROLLER this procedure are in the results section. CYTOKINE PANEL 3 FINAL Routine 07/09/2022 4:34 REPORT PM HAND ROLLER C REACTIVE PROTEIN Routine 07/09/2022 4:34 Result s for PM HAND ROLLER this procedure are in the results section. CYTOKINE PANEL 3 Routine 07/09/2022 4:34 Results for PM HAND ROLLER this procedure are in the results section. VRE CULTURE Routine 07/09/2022 4:34 Results for PM HAND ROLLER this procedure are in the results section. BLOOD UREA NITROGEN Now 07/09/2022 2:49 Resul ts for PM HAND ROLLER this procedure are in the results section. CALCIUM IONIZED, VENOUS Now 07/09/2022 2:49 R esults for PM HAND ROLLER this procedure are in the results section. .GLOMERULAR FILTRATION Now 07/09/2022 2:49 Re sults for RATE PM HAND ROLLER this procedure are in the results section. SERUM CREATININE Now 07/09/2022 2:49 Results for PM HAND ROLLER this procedure are in the results section. ELECTROLYTE PANEL Now 07/09/2022 2:49 Results for PM HAND ROLLER this procedure are in the results section. GLUCOSE LEVEL Now 07/09/2022 2:49 Results for PM HAND ROLLER this procedure are in the results section. PHOSPHORUS LEVEL Now 07/09/2022 2:49 Results for PM HAND ROLLER this procedure are in the results section. MAGNESIUM LEVEL Now 07/09/2022 2:49 Results f or PM HAND ROLLER this procedure are in the results section. BASIC METABOLIC PANEL, Now 07/09/2022 2:49 CALCIUM IONIZED PM HAND ROLLER POC GLUCOSE SCREEN Routine 07/09/2022 11:31 Resul ts for AM HAND ROLLER this procedure are in the results section. EEG Routine 07/09/2022 9:31 Results for AM HAND ROLLER this procedure are in the results section. COVID-19 (SARS-COV-2) Now 07/09/2022 8:17 Res ults for PCR - ASYMPTOMATIC - MC AM HAND ROLLER this procedure are in the results section. OSCILLATORY PEP Routine 07/09/2022 8:00 AM HAND ROLLER POC GLUCOSE SCREEN Routine 07/09/2022 5:20 Result s for AM HAND ROLLER this procedure are in the results section. CT HEAD WO CONTRAST STAT 07/09/2022 4:07 Resul ts for AM HAND ROLLER this procedure are in the results section. XR CHEST 1 VW Routine 07/09/2022 3:39 Results for AM HAND ROLLER this procedure are in the results section. CYTOKINE PANEL 3 FINAL Now 07/09/2022 12:51 REPORT AM HAND ROLLER FRACTIONATED BILIRUBIN AM 07/09/2022 12:51 R esults for AM HAND ROLLER this procedure are in the results section. TOTAL PROTEIN AM 07/09/2022 12:51 Results fo r AM HAND ROLLER this procedure are in the results section. ASPARTATE AM 07/09/2022 12:51 Results for AMINOTRANSFERASE AM HAND ROLLER this proced ure are in the results section. ALANINE AM 07/09/2022 12:51 Results for AMINOTRANSFERASE AM HAND ROLLER this proced ure are in the results section. ALKALINE PHOSPHATASE AM 07/09/2022 12:51 Res ults for AM HAND ROLLER this procedure are in the results section. ALBUMIN LEVEL AM 07/09/2022 12:51 Results fo r AM HAND ROLLER this procedure are in the results section. CALCIUM LEVEL AM 07/09/2022 12:51 Results fo r AM HAND ROLLER this procedure are in the results section. .GLOMERULAR FILTRATION AM 07/09/2022 12:51 R esults for RATE AM HAND ROLLER this procedure are in the results section. SERUM CREATININE AM 07/09/2022 12:51 Results for AM HAND ROLLER this procedure are in the results section. ELECTROLYTE PANEL AM 07/09/2022 12:51 Result s for AM HAND ROLLER this procedure are in the results section. BLOOD UREA NITROGEN AM 07/09/2022 12:51 Resu lts for AM HAND ROLLER this procedure are in the results section. GLUCOSE LEVEL AM 07/09/2022 12:51 Results fo r AM HAND ROLLER this procedure are in the results section. DIFFERENTIAL STAT 07/09/2022 12:51 Results for AM HAND ROLLER this procedure are in the results section. .CBC STAT 07/09/2022 12:51 Results for AM HAND ROLLER this procedure are in the results section. CYTOKINE PANEL 3 Now 07/09/2022 12:51 Results for AM HAND ROLLER this procedure are in the results section. PROTHROMBIN TIME AM 07/09/2022 12:51 Results for AM HAND ROLLER this procedure are in the results section. FIBRINOGEN AM 07/09/2022 12:51 Results for AM HAND ROLLER this procedure are in the results section. CALCIUM IONIZED, VENOUS AM 07/09/2022 12:51 Results for AM HAND ROLLER this procedure are in the results section. C REACTIVE PROTEIN AM 07/09/2022 12:51 Resul ts for AM HAND ROLLER this procedure are in the results section. FERRITIN AM 07/09/2022 12:51 Results for AM HAND ROLLER this procedure are in the results section. LACTATE DEHYDROGENASE AM 07/09/2022 12:51 Re sults for AM HAND ROLLER this procedure are in the results section. URIC ACID AM 07/09/2022 12:51 Results for AM HAND ROLLER this procedure are in the results section. PHOSPHORUS LEVEL AM 07/09/2022 12:51 Results for AM HAND ROLLER this procedure are in the results section. MAGNESIUM LEVEL AM 07/09/2022 12:51 Results for AM HAND ROLLER this procedure are in the results section. COMPREHENSIVE METABOLIC AM 07/09/2022 12:51 PANEL AM HAND ROLLER COMPLETE BLOOD COUNT W/ AM 07/09/2022 12:51 DIFFERENTIAL AM HAND ROLLER POC GLUCOSE SCREEN Routine 07/09/2022 12:11 Resul ts for AM HAND ROLLER this procedure are in the results section. BLOOD UREA NITROGEN Now 07/08/2022 5:51 Resul ts for PM HAND ROLLER this procedure are in the results section. CALCIUM IONIZED, VENOUS Now 07/08/2022 5:51 R esults for PM HAND ROLLER this procedure are in the results section. .GLOMERULAR FILTRATION Now 07/08/2022 5:51 Re sults for RATE PM HAND ROLLER this procedure are in the results section. SERUM CREATININE Now 07/08/2022 5:51 Results for PM HAND ROLLER this procedure are in the results section. ELECTROLYTE PANEL Now 07/08/2022 5:51 Results for PM HAND ROLLER this procedure are in the results section. GLUCOSE LEVEL Now 07/08/2022 5:51 Results for PM HAND ROLLER this procedure are in the results section. BLOOD GAS VENOUS Now 07/08/2022 5:51 Results for PM HAND ROLLER this procedure are in the results section. PHOSPHORUS LEVEL Now 07/08/2022 5:51 Results for PM HAND ROLLER this procedure are in the results section. MAGNESIUM LEVEL Now 07/08/2022 5:51 Results f or PM HAND ROLLER this procedure are in the results section. BASIC METABOLIC PANEL, Now 07/08/2022 5:51 CALCIUM IONIZED PM HAND ROLLER POC GLUCOSE SCREEN Routine 07/08/2022 5:44 Result s for PM HAND ROLLER this procedure are in the results section. OSCILLATORY PEP Routine 07/08/2022 4:00 PM HAND ROLLER ECHOCARDIOGRAM 2D STAT 07/08/2022 3:34 Results for COMPLETE PM HAND ROLLER this procedure are in the results section. GASTROINTESTINAL Routine 07/08/2022 1:01 Results for MULTIPLEX PANEL PATH PM HAND ROLLER this pr ocedure REVIEW are in the results section. C DIFFICILE DNA ASSAY Routine 07/08/2022 1:01 Res ults for PATH REVIEW PM HAND ROLLER this procedure are in the results section. GASTROINTESTINAL Now 07/08/2022 1:01 Results for MULTIPLEX PCR PANEL PM HAND ROLLER this pro cedure are in the results section. C. DIFFICILE DNA Now 07/08/2022 1:01 Results for DETECTION PM HAND ROLLER this procedure are in the results section. CALCIUM IONIZED, VENOUS Now 07/08/2022 12:04 Results for PM HAND ROLLER this procedure are in the results section. .GLOMERULAR FILTRATION Now 07/08/2022 12:04 R esults for RATE PM HAND ROLLER this procedure are in the results section. SERUM CREATININE Now 07/08/2022 12:04 Results for PM HAND ROLLER this procedure are in the results section. ELECTROLYTE PANEL Now 07/08/2022 12:04 Result s for PM HAND ROLLER this procedure are in the results section. BLOOD UREA NITROGEN Now 07/08/2022 12:04 Resu lts for PM HAND ROLLER this procedure are in the results section. GLUCOSE LEVEL Now 07/08/2022 12:04 Results fo r PM HAND ROLLER this procedure are in the results section. BASIC METABOLIC PANEL, Now 07/08/2022 12:04 CALCIUM IONIZED PM HAND ROLLER MAGNESIUM LEVEL Now 07/08/2022 12:04 Results for PM HAND ROLLER this procedure are in the results section. PHOSPHORUS LEVEL Now 07/08/2022 12:04 Results for PM HAND ROLLER this procedure are in the results section. OSCILLATORY PEP Routine 07/08/2022 12:00 PM HAND ROLLER POC GLUCOSE SCREEN Routine 07/08/2022 11:56 Resul ts for AM HAND ROLLER this procedure are in the results section. POC GLUCOSE SCREEN Routine 07/08/2022 8:23 Result s for AM HAND ROLLER this procedure are in the results section. OSCILLATORY PEP Routine 07/08/2022 8:00 AM HAND ROLLER POC GLUCOSE SCREEN Routine 07/08/2022 5:38 Result s for AM HAND ROLLER this procedure are in the results section. NT PRO BNP Now 07/08/2022 5:12 Results for AM HAND ROLLER this procedure are in the results section. CARDIAC PANEL Timed Study 07/08/2022 5:12 Results for AM HAND ROLLER this procedure are in the results section. XR CHEST 1 VW Routine 07/08/2022 2:48 Results for AM HAND ROLLER this procedure are in the results section. LACTIC ACID, VENOUS AM 07/08/2022 2:40 Resul ts for AM HAND ROLLER this procedure are in the results section. LACTIC ACID, ARTERIAL STAT 07/08/2022 2:40 Res ults for AM HAND ROLLER this procedure are in the results section. BLOOD GAS ARTERIAL STAT 07/08/2022 2:40 Result s for AM HAND ROLLER this procedure are in the results section. CALCIUM IONIZED, VENOUS AM 07/08/2022 2:40 R esults for AM HAND ROLLER this procedure are in the results section. HP FC CAR19 ([id number]) Now 07/08/2022 2:31 FINAL REPORT AM HAND ROLLER HP FC FLOW CYTOMETRY Now 07/08/2022 2:31 Resu lts for BLOOD COLLECTION AM HAND ROLLER this proced ure are in the results section. FRACTIONATED BILIRUBIN AM 07/08/2022 2:31 Re sults for AM HAND ROLLER this procedure are in the results section. TOTAL PROTEIN AM 07/08/2022 2:31 Results for AM HAND ROLLER this procedure are in the results section. ASPARTATE AM 07/08/2022 2:31 Results for AMINOTRANSFERASE AM HAND ROLLER this proced ure are in the results section. ALANINE AM 07/08/2022 2:31 Results for AMINOTRANSFERASE AM HAND ROLLER this proced ure are in the results section. ALKALINE PHOSPHATASE AM 07/08/2022 2:31 Resu lts for AM HAND ROLLER this procedure are in the results section. ALBUMIN LEVEL AM 07/08/2022 2:31 Results for AM HAND ROLLER this procedure are in the results section. CALCIUM LEVEL AM 07/08/2022 2:31 Results for AM HAND ROLLER this procedure are in the results section. .GLOMERULAR FILTRATION AM 07/08/2022 2:31 Re sults for RATE AM HAND ROLLER this procedure are in the results section. SERUM CREATININE AM 07/08/2022 2:31 Results for AM HAND ROLLER this procedure are in the results section. ELECTROLYTE PANEL AM 07/08/2022 2:31 Results for AM HAND ROLLER this procedure are in the results section. BLOOD UREA NITROGEN AM 07/08/2022 2:31 Resul ts for AM HAND ROLLER this procedure are in the results section. GLUCOSE LEVEL AM 07/08/2022 2:31 Results for AM HAND ROLLER this procedure are in the results section. DIFFERENTIAL STAT 07/08/2022 2:31 Results for AM HAND ROLLER this procedure are in the results section. .CBC STAT 07/08/2022 2:31 Results for AM HAND ROLLER this procedure are in the results section. CREATINE KINASE Routine 07/08/2022 2:31 Results f or AM HAND ROLLER this procedure are in the results section. C REACTIVE PROTEIN AM 07/08/2022 2:31 Result s for AM HAND ROLLER this procedure are in the results section. FERRITIN AM 07/08/2022 2:31 Results for AM HAND ROLLER this procedure are in the results section. LACTATE DEHYDROGENASE AM 07/08/2022 2:31 Res ults for AM HAND ROLLER this procedure are in the results section. URIC ACID AM 07/08/2022 2:31 Results for AM HAND ROLLER this procedure are in the results section. PHOSPHORUS LEVEL AM 07/08/2022 2:31 Results for AM HAND ROLLER this procedure are in the results section. MAGNESIUM LEVEL AM 07/08/2022 2:31 Results f or AM HAND ROLLER this procedure are in the results section. COMPREHENSIVE METABOLIC AM 07/08/2022 2:31 PANEL AM HAND ROLLER COMPLETE BLOOD COUNT W/ AM 07/08/2022 2:31 DIFFERENTIAL AM HAND ROLLER FIBRINOGEN Routine 07/08/2022 2:31 Results for AM HAND ROLLER this procedure are in the results section. D DIMER Routine 07/08/2022 2:31 Results for AM HAND ROLLER this procedure are in the results section. APTT Routine 07/08/2022 2:31 Results for AM HAND ROLLER this procedure are in the results section. PROTHROMBIN TIME Routine 07/08/2022 2:31 Results for AM HAND ROLLER this procedure are in the results section. HP FC CAR19 ([id number]) Now 07/08/2022 2:31 Resul ts for COLLECTION, BLOOD AM HAND ROLLER this proce dure are in the results section. 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 OSCILLATORY PEP Routine 07/08/2022 12:56 AM HAND ROLLER OSCILLATORY PEP Routine 07/08/2022 12:56 AM HAND ROLLER OSCILLATORY PEP Routine 07/08/2022 12:56 AM HAND ROLLER POC GLUCOSE SCREEN Routine 07/08/2022 12:32 Resul ts for AM HAND ROLLER this procedure are in the results section. EKG, 12-LEAD (PORTABLE) STAT 07/08/2022 EKG, 12-LEAD (PORTABLE) STAT 07/08/2022 BLOOD GAS VENOUS STAT 07/07/2022 9:55 Results for PM HAND ROLLER this procedure are in the results section. LACTIC ACID, VENOUS STAT 07/07/2022 9:55 Resul ts for PM HAND ROLLER this procedure are in the results section. CALCIUM LEVEL STAT 07/07/2022 8:47 Results for PM HAND ROLLER this procedure are in the results section. .GLOMERULAR FILTRATION STAT 07/07/2022 8:47 Re sults for RATE PM HAND ROLLER this procedure are in the results section. SERUM CREATININE STAT 07/07/2022 8:47 Results for PM HAND ROLLER this procedure are in the results section. ELECTROLYTE PANEL STAT 07/07/2022 8:47 Results for PM HAND ROLLER this procedure are in the results section. BLOOD UREA NITROGEN STAT 07/07/2022 8:47 Resul ts for PM HAND ROLLER this procedure are in the results section. GLUCOSE LEVEL STAT 07/07/2022 8:47 Results for PM HAND ROLLER this procedure are in the results section. CARDIAC PANEL Timed Study 07/07/2022 8:47 Results for PM HAND ROLLER this procedure are in the results section. PHOSPHORUS LEVEL STAT 07/07/2022 8:47 Results for PM HAND ROLLER this procedure are in the results section. MAGNESIUM LEVEL STAT 07/07/2022 8:47 Results f or PM HAND ROLLER this procedure are in the results section. BASIC METABOLIC PANEL, STAT 07/07/2022 8:47 CALCIUM TOTAL PM HAND ROLLER MAGNESIUM LEVEL STAT 07/07/2022 8:47 Results f or PM HAND ROLLER this procedure are in the results section. ELECTROLYTE PANEL STAT 07/07/2022 8:47 Results for PM HAND ROLLER this procedure are in the results section. BLOOD CULTURE STAT 07/07/2022 8:47 Results for PM HAND ROLLER this procedure are in the results section. HEMOGLOBIN STAT 07/07/2022 8:28 Results for AM HAND ROLLER this procedure are in the results section. LACTIC ACID, VENOUS STAT 07/07/2022 8:28 Resul ts for AM HAND ROLLER this procedure are in the results section. BLOOD GAS ARTERIAL STAT 07/07/2022 8:28 Result s for AM HAND ROLLER this procedure are in the results section. XR CHEST 1 VW PORTABLE Routine 07/07/2022 7:58 Re sults for AM HAND ROLLER this procedure are in the results section. VENOUS BLOOD GAS PLUS Routine 07/07/2022 7:33 Res ults for AM HAND ROLLER this procedure are in the results section. CKMB Routine 07/07/2022 7:33 Results for AM HAND ROLLER this procedure are in the results section. TROPONIN T Routine 07/07/2022 7:33 Results for AM HAND ROLLER this procedure are in the results section. COMPLETE BLOOD COUNT W/ STAT 07/07/2022 4:20 R esults for INDICES AM HAND ROLLER this procedure are in the results section. DIFFERENTIAL STAT 07/07/2022 4:20 Results for AM HAND ROLLER this procedure are in the results section. CLOT EXPIRATION DATE Routine 07/07/2022 2:33 Resu lts for AM HAND ROLLER this procedure are in the results section. TMP INTERPRETATION Routine 07/07/2022 2:33 Result s for ANTIBODY SCREEN AM HAND ROLLER this procedu re NEGATIVE are in the results section. CYTOKINE PANEL 3 FINAL Routine 07/07/2022 2:33 REPORT AM HAND ROLLER URINALYSIS WITH Now 07/07/2022 2:33 Results f or MICROSCOPIC AM HAND ROLLER this procedure are in the results section. FRACTIONATED BILIRUBIN AM 07/07/2022 2:33 Re sults for AM HAND ROLLER this procedure are in the results section. TOTAL PROTEIN AM 07/07/2022 2:33 Results for AM HAND ROLLER this procedure are in the results section. ASPARTATE AM 07/07/2022 2:33 Results for AMINOTRANSFERASE AM HAND ROLLER this proced ure are in the results section. ALANINE AM 07/07/2022 2:33 Results for AMINOTRANSFERASE AM HAND ROLLER this proced ure are in the results section. ALKALINE PHOSPHATASE AM 07/07/2022 2:33 Resu lts for AM HAND ROLLER this procedure are in the results section. ALBUMIN LEVEL AM 07/07/2022 2:33 Results for AM HAND ROLLER this procedure are in the results section. CALCIUM LEVEL AM 07/07/2022 2:33 Results for AM HAND ROLLER this procedure are in the results section. .GLOMERULAR FILTRATION AM 07/07/2022 2:33 Re sults for RATE AM HAND ROLLER this procedure are in the results section. SERUM CREATININE AM 07/07/2022 2:33 Results for AM HAND ROLLER this procedure are in the results section. ELECTROLYTE PANEL AM 07/07/2022 2:33 Results for AM HAND ROLLER this procedure are in the results section. BLOOD UREA NITROGEN AM 07/07/2022 2:33 Resul ts for AM HAND ROLLER this procedure are in the results section. GLUCOSE LEVEL AM 07/07/2022 2:33 Results for AM HAND ROLLER this procedure are in the results section. .CBC AM 07/07/2022 2:33 Results for AM HAND ROLLER this procedure are in the results section. ANTIBODY SCREEN Routine 07/07/2022 2:33 Results f or AM HAND ROLLER this procedure are in the results section. ABORH Routine 07/07/2022 2:33 Results for AM HAND ROLLER this procedure are in the results section. C REACTIVE PROTEIN AM 07/07/2022 2:33 Result s for AM HAND ROLLER this procedure are in the results section. FERRITIN AM 07/07/2022 2:33 Results for AM HAND ROLLER this procedure are in the results section. LACTATE DEHYDROGENASE AM 07/07/2022 2:33 Res ults for AM HAND ROLLER this procedure are in the results section. URIC ACID AM 07/07/2022 2:33 Results for AM HAND ROLLER this procedure are in the results section. PHOSPHORUS LEVEL AM 07/07/2022 2:33 Results for AM HAND ROLLER this procedure are in the results section. MAGNESIUM LEVEL AM 07/07/2022 2:33 Results f or AM HAND ROLLER this procedure are in the results section. COMPREHENSIVE METABOLIC AM 07/07/2022 2:33 PANEL AM HAND ROLLER COMPLETE BLOOD COUNT W/ AM 07/07/2022 2:33 DIFFERENTIAL AM HAND ROLLER CYTOKINE PANEL 3 Routine 07/07/2022 2:33 Results for AM HAND ROLLER this procedure are in the results section. TYPE AND SCREEN Routine 07/07/2022 2:33 AM HAND ROLLER URINE CULTURE Now 07/07/2022 2:33 Results for AM HAND ROLLER this procedure are in the results section. BLOOD CULTURE STAT 07/07/2022 2:33 Results for AM HAND ROLLER this procedure are in the results section. EKG, 12-LEAD (PORTABLE) STAT 07/07/2022 FRACTIONATED BILIRUBIN AM 07/06/2022 4:00 Re sults for AM HAND ROLLER this procedure are in the results section. TOTAL PROTEIN AM 07/06/2022 4:00 Results for AM HAND ROLLER this procedure are in the results section. ASPARTATE AM 07/06/2022 4:00 Results for AMINOTRANSFERASE AM HAND ROLLER this proced ure are in the results section. ALANINE AM 07/06/2022 4:00 Results for AMINOTRANSFERASE AM HAND ROLLER this proced ure are in the results section. ALKALINE PHOSPHATASE AM 07/06/2022 4:00 Resu lts for AM HAND ROLLER this procedure are in the results section. ALBUMIN LEVEL AM 07/06/2022 4:00 Results for AM HAND ROLLER this procedure are in the results section. CALCIUM LEVEL AM 07/06/2022 4:00 Results for AM HAND ROLLER this procedure are in the results section. .GLOMERULAR FILTRATION AM 07/06/2022 4:00 Re sults for RATE AM HAND ROLLER this procedure are in the results section. SERUM CREATININE AM 07/06/2022 4:00 Results for AM HAND ROLLER this procedure are in the results section. ELECTROLYTE PANEL AM 07/06/2022 4:00 Results for AM HAND ROLLER this procedure are in the results section. BLOOD UREA NITROGEN AM 07/06/2022 4:00 Resul ts for AM HAND ROLLER this procedure are in the results section. GLUCOSE LEVEL AM 07/06/2022 4:00 Results for AM HAND ROLLER this procedure are in the results section. DIFFERENTIAL AM 07/06/2022 4:00 Results for AM HAND ROLLER this procedure are in the results section. .CBC AM 07/06/2022 4:00 Results for AM HAND ROLLER this procedure are in the results section. C REACTIVE PROTEIN AM 07/06/2022 4:00 Result s for AM HAND ROLLER this procedure are in the results section. FERRITIN AM 07/06/2022 4:00 Results for AM HAND ROLLER this procedure are in the results section. LACTATE DEHYDROGENASE AM 07/06/2022 4:00 Res ults for AM HAND ROLLER this procedure are in the results section. URIC ACID AM 07/06/2022 4:00 Results for AM HAND ROLLER this procedure are in the results section. PHOSPHORUS LEVEL AM 07/06/2022 4:00 Results for AM HAND ROLLER this procedure are in the results section. MAGNESIUM LEVEL AM 07/06/2022 4:00 Results f or AM HAND ROLLER this procedure are in the results section. COMPREHENSIVE METABOLIC AM 07/06/2022 4:00 PANEL AM HAND ROLLER COMPLETE BLOOD COUNT W/ AM 07/06/2022 4:00 DIFFERENTIAL AM HAND ROLLER URINALYSIS MICROSCOPIC Routine 07/05/2022 9:58 Re sults for EXAM PM HAND ROLLER this procedure are in the results section. URINALYSIS WITH Now 07/05/2022 9:58 Results f or MICROSCOPIC IF PM HAND ROLLER this procedur e INDICATED are in the results section. BLOOD CULTURE Now 07/05/2022 9:58 Results for PM HAND ROLLER this procedure are in the results section. XR CHEST 1 VW PORTABLE Routine 07/05/2022 9:28 Re sults for PM HAND ROLLER this procedure are in the results section. FRACTIONATED BILIRUBIN AM 07/05/2022 3:31 Re sults for AM HAND ROLLER this procedure are in the results section. TOTAL PROTEIN AM 07/05/2022 3:31 Results for AM HAND ROLLER this procedure are in the results section. ASPARTATE AM 07/05/2022 3:31 Results for AMINOTRANSFERASE AM HAND ROLLER this proced ure are in the results section. ALANINE AM 07/05/2022 3:31 Results for AMINOTRANSFERASE AM HAND ROLLER this proced ure are in the results section. ALKALINE PHOSPHATASE AM 07/05/2022 3:31 Resu lts for AM HAND ROLLER this procedure are in the results section. ALBUMIN LEVEL AM 07/05/2022 3:31 Results for AM HAND ROLLER this procedure are in the results section. CALCIUM LEVEL AM 07/05/2022 3:31 Results for AM HAND ROLLER this procedure are in the results section. .GLOMERULAR FILTRATION AM 07/05/2022 3:31 Re sults for RATE AM HAND ROLLER this procedure are in the results section. SERUM CREATININE AM 07/05/2022 3:31 Results for AM HAND ROLLER this procedure are in the results section. ELECTROLYTE PANEL AM 07/05/2022 3:31 Results for AM HAND ROLLER this procedure are in the results section. BLOOD UREA NITROGEN AM 07/05/2022 3:31 Resul ts for AM HAND ROLLER this procedure are in the results section. GLUCOSE LEVEL AM 07/05/2022 3:31 Results for AM HAND ROLLER this procedure are in the results section. DIFFERENTIAL AM 07/05/2022 3:31 Results for AM HAND ROLLER this procedure are in the results section. .CBC AM 07/05/2022 3:31 Results for AM HAND ROLLER this procedure are in the results section. C REACTIVE PROTEIN AM 07/05/2022 3:31 Result s for AM HAND ROLLER this procedure are in the results section. FERRITIN AM 07/05/2022 3:31 Results for AM HAND ROLLER this procedure are in the results section. LACTATE DEHYDROGENASE AM 07/05/2022 3:31 Res ults for AM HAND ROLLER this procedure are in the results section. URIC ACID AM 07/05/2022 3:31 Results for AM HAND ROLLER this procedure are in the results section. PHOSPHORUS LEVEL AM 07/05/2022 3:31 Results for AM HAND ROLLER this procedure are in the results section. MAGNESIUM LEVEL AM 07/05/2022 3:31 Results f or AM HAND ROLLER this procedure are in the results section. COMPREHENSIVE METABOLIC AM 07/05/2022 3:31 PANEL AM HAND ROLLER COMPLETE BLOOD COUNT W/ AM 07/05/2022 3:31 DIFFERENTIAL AM HAND ROLLER FIBRINOGEN Routine 07/05/2022 3:31 Results for AM HAND ROLLER this procedure are in the results section. D DIMER Routine 07/05/2022 3:31 Results for AM HAND ROLLER this procedure are in the results section. APTT Routine 07/05/2022 3:31 Results for AM HAND ROLLER this procedure are in the results section. PROTHROMBIN TIME Routine 07/05/2022 3:31 Results for AM HAND ROLLER this procedure are in the results section. TMP INTERPRETATION Routine 07/04/2022 3:53 Result s for ANTIBODY SCREEN AM HAND ROLLER this procedu re NEGATIVE are in the results section. CLOT EXPIRATION DATE Routine 07/04/2022 3:53 Resu lts for AM HAND ROLLER this procedure are in the results section. FRACTIONATED BILIRUBIN AM 07/04/2022 3:53 Re sults for AM HAND ROLLER this procedure are in the results section. TOTAL PROTEIN AM 07/04/2022 3:53 Results for AM HAND ROLLER this procedure are in the results section. ASPARTATE AM 07/04/2022 3:53 Results for AMINOTRANSFERASE AM HAND ROLLER this proced ure are in the results section. ALANINE AM 07/04/2022 3:53 Results for AMINOTRANSFERASE AM HAND ROLLER this proced ure are in the results section. ALKALINE PHOSPHATASE AM 07/04/2022 3:53 Resu lts for AM HAND ROLLER this procedure are in the results section. ALBUMIN LEVEL AM 07/04/2022 3:53 Results for AM HAND ROLLER this procedure are in the results section. CALCIUM LEVEL AM 07/04/2022 3:53 Results for AM HAND ROLLER this procedure are in the results section. .GLOMERULAR FILTRATION AM 07/04/2022 3:53 Re sults for RATE AM HAND ROLLER this procedure are in the results section. SERUM CREATININE AM 07/04/2022 3:53 Results for AM HAND ROLLER this procedure are in the results section. ELECTROLYTE PANEL AM 07/04/2022 3:53 Results for AM HAND ROLLER this procedure are in the results section. BLOOD UREA NITROGEN AM 07/04/2022 3:53 Resul ts for AM HAND ROLLER this procedure are in the results section. GLUCOSE LEVEL AM 07/04/2022 3:53 Results for AM HAND ROLLER this procedure are in the results section. DIFFERENTIAL AM 07/04/2022 3:53 Results for AM HAND ROLLER this procedure are in the results section. .CBC AM 07/04/2022 3:53 Results for AM HAND ROLLER this procedure are in the results section. ANTIBODY SCREEN Routine 07/04/2022 3:53 Results f or AM HAND ROLLER this procedure are in the results section. ABORH Routine 07/04/2022 3:53 Results for AM HAND ROLLER this procedure are in the results section. C REACTIVE PROTEIN AM 07/04/2022 3:53 Result s for AM HAND ROLLER this procedure are in the results section. FERRITIN AM 07/04/2022 3:53 Results for AM HAND ROLLER this procedure are in the results section. LACTATE DEHYDROGENASE AM 07/04/2022 3:53 Res ults for AM HAND ROLLER this procedure are in the results section. URIC ACID AM 07/04/2022 3:53 Results for AM HAND ROLLER this procedure are in the results section. PHOSPHORUS LEVEL AM 07/04/2022 3:53 Results for AM HAND ROLLER this procedure are in the results section. MAGNESIUM LEVEL AM 07/04/2022 3:53 Results f or AM HAND ROLLER this procedure are in the results section. 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 FRACTIONATED BILIRUBIN AM 07/03/2022 3:11 Re sults for AM HAND ROLLER this procedure are in the results section. TOTAL PROTEIN AM 07/03/2022 3:11 Results for AM HAND ROLLER this procedure are in the results section. ASPARTATE AM 07/03/2022 3:11 Results for AMINOTRANSFERASE AM HAND ROLLER this proced ure are in the results section. ALANINE AM 07/03/2022 3:11 Results for AMINOTRANSFERASE AM HAND ROLLER this proced ure are in the results section. ALKALINE PHOSPHATASE AM 07/03/2022 3:11 Resu lts for AM HAND ROLLER this procedure are in the results section. ALBUMIN LEVEL AM 07/03/2022 3:11 Results for AM HAND ROLLER this procedure are in the results section. CALCIUM LEVEL AM 07/03/2022 3:11 Results for AM HAND ROLLER this procedure are in the results section. .GLOMERULAR FILTRATION AM 07/03/2022 3:11 Re sults for RATE AM HAND ROLLER this procedure are in the results section. SERUM CREATININE AM 07/03/2022 3:11 Results for AM HAND ROLLER this procedure are in the results section. ELECTROLYTE PANEL AM 07/03/2022 3:11 Results for AM HAND ROLLER this procedure are in the results section. BLOOD UREA NITROGEN AM 07/03/2022 3:11 Resul ts for AM HAND ROLLER this procedure are in the results section. GLUCOSE LEVEL AM 07/03/2022 3:11 Results for AM HAND ROLLER this procedure are in the results section. DIFFERENTIAL AM 07/03/2022 3:11 Results for AM HAND ROLLER this procedure are in the results section. .CBC AM 07/03/2022 3:11 Results for AM HAND ROLLER this procedure are in the results section. C REACTIVE PROTEIN AM 07/03/2022 3:11 Result s for AM HAND ROLLER this procedure are in the results section. FERRITIN AM 07/03/2022 3:11 Results for AM HAND ROLLER this procedure are in the results section. LACTATE DEHYDROGENASE AM 07/03/2022 3:11 Res ults for AM HAND ROLLER this procedure are in the results section. URIC ACID AM 07/03/2022 3:11 Results for AM HAND ROLLER this procedure are in the results section. PHOSPHORUS LEVEL AM 07/03/2022 3:11 Results for AM HAND ROLLER this procedure are in the results section. MAGNESIUM LEVEL AM 07/03/2022 3:11 Results f or AM HAND ROLLER this procedure are in the results section. COMPREHENSIVE METABOLIC AM 07/03/2022 3:11 PANEL AM HAND ROLLER COMPLETE BLOOD COUNT W/ AM 07/03/2022 3:11 DIFFERENTIAL AM HAND ROLLER COVID-19 (SARS-COV-2) Now 07/02/2022 4:17 Res ults for PCR - ASYMPTOMATIC - MC PM HAND ROLLER this procedure are in the results section. FRACTIONATED BILIRUBIN AM 07/02/2022 3:11 Re sults for AM HAND ROLLER this procedure are in the results section. TOTAL PROTEIN AM 07/02/2022 3:11 Results for AM HAND ROLLER this procedure are in the results section. ASPARTATE AM 07/02/2022 3:11 Results for AMINOTRANSFERASE AM HAND ROLLER this proced ure are in the results section. ALANINE AM 07/02/2022 3:11 Results for AMINOTRANSFERASE AM HAND ROLLER this proced ure are in the results section. ALKALINE PHOSPHATASE AM 07/02/2022 3:11 Resu lts for AM HAND ROLLER this procedure are in the results section. ALBUMIN LEVEL AM 07/02/2022 3:11 Results for AM HAND ROLLER this procedure are in the results section. CALCIUM LEVEL AM 07/02/2022 3:11 Results for AM HAND ROLLER this procedure are in the results section. .GLOMERULAR FILTRATION AM 07/02/2022 3:11 Re sults for RATE AM HAND ROLLER this procedure are in the results section. SERUM CREATININE AM 07/02/2022 3:11 Results for AM HAND ROLLER this procedure are in the results section. ELECTROLYTE PANEL AM 07/02/2022 3:11 Results for AM HAND ROLLER this procedure are in the results section. BLOOD UREA NITROGEN AM 07/02/2022 3:11 Resul ts for AM HAND ROLLER this procedure are in the results section. GLUCOSE LEVEL AM 07/02/2022 3:11 Results for AM HAND ROLLER this procedure are in the results section. DIFFERENTIAL AM 07/02/2022 3:11 Results for AM HAND ROLLER this procedure are in the results section. .CBC AM 07/02/2022 3:11 Results for AM HAND ROLLER this procedure are in the results section. C REACTIVE PROTEIN AM 07/02/2022 3:11 Result s for AM HAND ROLLER this procedure are in the results section. FERRITIN AM 07/02/2022 3:11 Results for AM HAND ROLLER this procedure are in the results section. LACTATE DEHYDROGENASE AM 07/02/2022 3:11 Res ults for AM HAND ROLLER this procedure are in the results section. URIC ACID AM 07/02/2022 3:11 Results for AM HAND ROLLER this procedure are in the results section. PHOSPHORUS LEVEL AM 07/02/2022 3:11 Results for AM HAND ROLLER this procedure are in the results section. MAGNESIUM LEVEL AM 07/02/2022 3:11 Results f or AM HAND ROLLER this procedure are in the results section. COMPREHENSIVE METABOLIC AM 07/02/2022 3:11 PANEL AM HAND ROLLER COMPLETE BLOOD COUNT W/ AM 07/02/2022 3:11 DIFFERENTIAL AM HAND ROLLER FIBRINOGEN Routine 07/02/2022 3:11 Results for AM HAND ROLLER this procedure are in the results section. D DIMER Routine 07/02/2022 3:11 Results for AM HAND ROLLER this procedure are in the results section. APTT Routine 07/02/2022 3:11 Results for AM HAND ROLLER this procedure are in the results section. PROTHROMBIN TIME Routine 07/02/2022 3:11 Results for AM HAND ROLLER this procedure are in the results section. HP FC CAR19 ([id number]) Now 07/01/2022 3:09 FINAL REPORT AM HAND ROLLER HP FC FLOW CYTOMETRY Now 07/01/2022 3:09 Resu lts for BLOOD COLLECTION AM HAND ROLLER this proced ure are in the results section. TMP INTERPRETATION Routine 07/01/2022 3:09 Result s for ANTIBODY SCREEN AM HAND ROLLER this procedu re NEGATIVE are in the results section. CLOT EXPIRATION DATE Routine 07/01/2022 3:09 Resu lts for AM HAND ROLLER this procedure are in the results section. FRACTIONATED BILIRUBIN AM 07/01/2022 3:09 Re sults for AM HAND ROLLER this procedure are in the results section. TOTAL PROTEIN AM 07/01/2022 3:09 Results for AM HAND ROLLER this procedure are in the results section. ASPARTATE AM 07/01/2022 3:09 Results for AMINOTRANSFERASE AM HAND ROLLER this proced ure are in the results section. ALANINE AM 07/01/2022 3:09 Results for AMINOTRANSFERASE AM HAND ROLLER this proced ure are in the results section. ALKALINE PHOSPHATASE AM 07/01/2022 3:09 Resu lts for AM HAND ROLLER this procedure are in the results section. ALBUMIN LEVEL AM 07/01/2022 3:09 Results for AM HAND ROLLER this procedure are in the results section. CALCIUM LEVEL AM 07/01/2022 3:09 Results for AM HAND ROLLER this procedure are in the results section. .GLOMERULAR FILTRATION AM 07/01/2022 3:09 Re sults for RATE AM HAND ROLLER this procedure are in the results section. SERUM CREATININE AM 07/01/2022 3:09 Results for AM HAND ROLLER this procedure are in the results section. ELECTROLYTE PANEL AM 07/01/2022 3:09 Results for AM HAND ROLLER this procedure are in the results section. BLOOD UREA NITROGEN AM 07/01/2022 3:09 Resul ts for AM HAND ROLLER this procedure are in the results section. GLUCOSE LEVEL AM 07/01/2022 3:09 Results for AM HAND ROLLER this procedure are in the results section. DIFFERENTIAL AM 07/01/2022 3:09 Results for AM HAND ROLLER this procedure are in the results section. .CBC AM 07/01/2022 3:09 Results for AM HAND ROLLER this procedure are in the results section. C REACTIVE PROTEIN AM 07/01/2022 3:09 Result s for AM HAND ROLLER this procedure are in the results section. FERRITIN AM 07/01/2022 3:09 Results for AM HAND ROLLER this procedure are in the results section. LACTATE DEHYDROGENASE AM 07/01/2022 3:09 Res ults for AM HAND ROLLER this procedure are in the results section. URIC ACID AM 07/01/2022 3:09 Results for AM HAND ROLLER this procedure are in the results section. PHOSPHORUS LEVEL AM 07/01/2022 3:09 Results for AM HAND ROLLER this procedure are in the results section. MAGNESIUM LEVEL AM 07/01/2022 3:09 Results f or AM HAND ROLLER this procedure are in the results section. COMPREHENSIVE METABOLIC AM 07/01/2022 3:09 PANEL AM HAND ROLLER COMPLETE BLOOD COUNT W/ AM 07/01/2022 3:09 DIFFERENTIAL AM HAND ROLLER ANTIBODY SCREEN Routine 07/01/2022 3:09 Results f or AM HAND ROLLER this procedure are in the results section. ABORH Routine 07/01/2022 3:09 Results for AM HAND ROLLER this procedure are in the results section. HP FC CAR19 ([id number]) Now 07/01/2022 3:09 Resul ts for COLLECTION, BLOOD AM HAND ROLLER this proce dure are in the results section. TYPE AND SCREEN Routine 07/01/2022 3:09 AM HAND ROLLER CYTOKINE PANEL 3 FINAL Routine 06/30/2022 2:12 REPORT AM HAND ROLLER FRACTIONATED BILIRUBIN AM 06/30/2022 2:12 Re sults for AM HAND ROLLER this procedure are in the results section. TOTAL PROTEIN AM 06/30/2022 2:12 Results for AM HAND ROLLER this procedure are in the results section. ASPARTATE AM 06/30/2022 2:12 Results for AMINOTRANSFERASE AM HAND ROLLER this proced ure are in the results section. ALANINE AM 06/30/2022 2:12 Results for AMINOTRANSFERASE AM HAND ROLLER this proced ure are in the results section. ALKALINE PHOSPHATASE AM 06/30/2022 2:12 Resu lts for AM HAND ROLLER this procedure are in the results section. ALBUMIN LEVEL AM 06/30/2022 2:12 Results fo r AM HAND ROLLER this procedure are in the results section. CALCIUM LEVEL AM 06/30/2022 2:12 Results for AM HAND ROLLER this procedure are in the results section. .GLOMERULAR FILTRATION AM 06/30/2022 2:12 Re sults for RATE AM HAND ROLLER this procedure are in the results section. SERUM CREATININE AM 06/30/2022 2:12 Results for AM HAND ROLLER this procedure are in the results section. ELECTROLYTE PANEL AM 06/30/2022 2:12 Results for AM HAND ROLLER this procedure are in the results section. BLOOD UREA NITROGEN AM 06/30/2022 2:12 Resul ts for AM HAND ROLLER this procedure are in the results section. GLUCOSE LEVEL AM 06/30/2022 2:12 Results for AM HAND ROLLER this procedure are in the results section. DIFFERENTIAL AM 06/30/2022 2:12 Results for AM HAND ROLLER this procedure are in the results section. .CBC AM 06/30/2022 2:12 Results for AM HAND ROLLER this procedure are in the results section. C REACTIVE PROTEIN AM 06/30/2022 2:12 Result s for AM HAND ROLLER this procedure are in the results section. FERRITIN AM 06/30/2022 2:12 Results for AM HAND ROLLER this procedure are in the results section. LACTATE DEHYDROGENASE AM 06/30/2022 2:12 Res ults for AM HAND ROLLER this procedure are in the results section. URIC ACID AM 06/30/2022 2:12 Results for AM HAND ROLLER this procedure are in the results section. PHOSPHORUS LEVEL AM 06/30/2022 2:12 Results for AM HAND ROLLER this procedure are in the results section. MAGNESIUM LEVEL AM 06/30/2022 2:12 Results f or AM HAND ROLLER this procedure are in the results section. COMPREHENSIVE METABOLIC AM 06/30/2022 2:12 PANEL AM HAND ROLLER COMPLETE BLOOD COUNT W/ AM 06/30/2022 2:12 DIFFERENTIAL AM HAND ROLLER CYTOKINE PANEL 3 Routine 06/30/2022 2:12 Results for AM HAND ROLLER this procedure are in the results section. FRACTIONATED BILIRUBIN AM 06/29/2022 3:15 Re sults for AM HAND ROLLER this procedure are in the results section. TOTAL PROTEIN AM 06/29/2022 3:15 Results for AM HAND ROLLER this procedure are in the results section. ASPARTATE AM 06/29/2022 3:15 Results for AMINOTRANSFERASE AM HAND ROLLER this proced ure are in the results section. ALANINE AM 06/29/2022 3:15 Results for AMINOTRANSFERASE AM HAND ROLLER this proced ure are in the results section. ALKALINE PHOSPHATASE AM 06/29/2022 3:15 Res ults for AM HAND ROLLER this procedure are in the results section. ALBUMIN LEVEL AM 06/29/2022 3:15 Results for AM HAND ROLLER this procedure are in the results section. CALCIUM LEVEL AM 06/29/2022 3:15 Results for AM HAND ROLLER this procedure are in the results section. .GLOMERULAR FILTRATION AM 06/29/2022 3:15 Re sults for RATE AM HAND ROLLER this procedure are in the results section. SERUM CREATININE AM 06/29/2022 3:15 Results for AM HAND ROLLER this procedure are in the results section. ELECTROLYTE PANEL AM 06/29/2022 3:15 Results for AM HAND ROLLER this procedure are in the results section. BLOOD UREA NITROGEN AM 06/29/2022 3:15 Resul ts for AM HAND ROLLER this procedure are in the results section. GLUCOSE LEVEL AM 06/29/2022 3:15 Results for AM HAND ROLLER this procedure are in the results section. DIFFERENTIAL AM 06/29/2022 3:15 Results for AM HAND ROLLER this procedure are in the results section. .CBC AM 06/29/2022 3:15 Results for AM HAND ROLLER this procedure are in the results section. LACTATE DEHYDROGENASE AM 06/29/2022 3:15 Re sults for AM HAND ROLLER this procedure are in the results section. URIC ACID AM 06/29/2022 3:15 Results for AM HAND ROLLER this procedure are in the results section. PHOSPHORUS LEVEL AM 06/29/2022 3:15 Results for AM HAND ROLLER this procedure are in the results section. MAGNESIUM LEVEL AM 06/29/2022 3:15 Results f or AM HAND ROLLER this procedure are in the results section. COMPREHENSIVE METABOLIC AM 06/29/2022 3:15 PANEL AM HAND ROLLER COMPLETE BLOOD COUNT W/ AM 06/29/2022 3:15 DIFFERENTIAL AM HAND ROLLER FIBRINOGEN Routine 06/29/2022 3:15 Results for AM HAND ROLLER this procedure are in the results section. D DIMER Routine 06/29/2022 3:15 Results for AM HAND ROLLER this procedure are in the results section. APTT Routine 06/29/2022 3:15 Results for AM HAND ROLLER this procedure are in the results section. PROTHROMBIN TIME Routine 06/29/2022 3:15 Results for AM HAND ROLLER this procedure are in the results section. TMP INTERPRETATION Routine 06/28/2022 3:23 Result s for ANTIBODY SCREEN AM HAND ROLLER this procedu re NEGATIVE are in the results section. CLOT EXPIRATION DATE Routine 06/28/2022 3:23 Resu lts for AM HAND ROLLER this procedure are in the results section. FRACTIONATED BILIRUBIN AM 06/28/2022 3:23 Re sults for AM HAND ROLLER this procedure are in the results section. TOTAL PROTEIN AM 06/28/2022 3:23 Results for AM HAND ROLLER this procedure are in the results section. ASPARTATE AM 06/28/2022 3:23 Results for AMINOTRANSFERASE AM HAND ROLLER this proced ure are in the results section. ALANINE AM 06/28/2022 3:23 Results for AMINOTRANSFERASE AM HAND ROLLER this proced ure are in the results section. ALKALINE PHOSPHATASE AM 06/28/2022 3:23 Resu lts for AM HAND ROLLER this procedure are in the results section. ALBUMIN LEVEL AM 06/28/2022 3:23 Results for AM HAND ROLLER this procedure are in the results section. CALCIUM LEVEL AM 06/28/2022 3:23 Results for AM HAND ROLLER this procedure are in the results section. .GLOMERULAR FILTRATION AM 06/28/2022 3:23 Re sults for RATE AM HAND ROLLER this procedure are in the results section. SERUM CREATININE AM 06/28/2022 3:23 Results for AM HAND ROLLER this procedure are in the results section. ELECTROLYTE PANEL AM 06/28/2022 3:23 Results for AM HAND ROLLER this procedure are in the results section. BLOOD UREA NITROGEN AM 06/28/2022 3:23 Resul ts for AM HAND ROLLER this procedure are in the results section. GLUCOSE LEVEL AM 06/28/2022 3:23 Results for AM HAND ROLLER this procedure are in the results section. DIFFERENTIAL AM 06/28/2022 3:23 Results for AM HAND ROLLER this procedure are in the results section. .CBC AM 06/28/2022 3:23 Results for AM HAND ROLLER this procedure are in the results section. ANTIBODY SCREEN Routine 06/28/2022 3:23 Results f or AM HAND ROLLER this procedure are in the results section. ABORH Routine 06/28/2022 3:23 Results for AM HAND ROLLER this procedure are in the results section. LACTATE DEHYDROGENASE AM 06/28/2022 3:23 Res ults for AM HAND ROLLER this procedure are in the results section. URIC ACID AM 06/28/2022 3:23 Results for AM HAND ROLLER this procedure are in the results section. PHOSPHORUS LEVEL AM 06/28/2022 3:23 Results for AM HAND ROLLER this procedure are in the results section. MAGNESIUM LEVEL AM 06/28/2022 3:23 Results f or AM HAND ROLLER this procedure are in the results section. COMPREHENSIVE METABOLIC AM 06/28/2022 3:23 PANEL AM HAND ROLLER COMPLETE BLOOD COUNT W/ AM 06/28/2022 3:23 DIFFERENTIAL AM HAND ROLLER TYPE AND SCREEN Routine 06/28/2022 3:23 AM HAND ROLLER FRACTIONATED BILIRUBIN AM 06/27/2022 3:13 Re sults for AM HAND ROLLER this procedure are in the results section. TOTAL PROTEIN AM 06/27/2022 3:13 Results for AM HAND ROLLER this procedure are in the results section. ASPARTATE AM 06/27/2022 3:13 Results for AMINOTRANSFERASE AM HAND ROLLER this proced ure are in the results section. ALANINE AM 06/27/2022 3:13 Results for AMINOTRANSFERASE AM HAND ROLLER this proced ure are in the results section. ALKALINE PHOSPHATASE AM 06/27/2022 3:13 Resu lts for AM HAND ROLLER this procedure are in the results section. ALBUMIN LEVEL AM 06/27/2022 3:13 Results for AM HAND ROLLER this procedure are in the results section. CALCIUM LEVEL AM 06/27/2022 3:13 Results for AM HAND ROLLER this procedure are in the results section. .GLOMERULAR FILTRATION AM 06/27/2022 3:13 Re sults for RATE AM HAND ROLLER this procedure are in the results section. SERUM CREATININE AM 06/27/2022 3:13 Results for AM HAND ROLLER this procedure are in the results section. ELECTROLYTE PANEL AM 06/27/2022 3:13 Results for AM HAND ROLLER this procedure are in the results section. BLOOD UREA NITROGEN AM 06/27/2022 3:13 Resul ts for AM HAND ROLLER this procedure are in the results section. GLUCOSE LEVEL AM 06/27/2022 3:13 Results for AM HAND ROLLER this procedure are in the results section. DIFFERENTIAL AM 06/27/2022 3:13 Results for AM HAND ROLLER this procedure are in the results section. .CBC AM 06/27/2022 3:13 Results for AM HAND ROLLER this procedure are in the results section. LACTATE DEHYDROGENASE AM 06/27/2022 3:13 Res ults for AM HAND ROLLER this procedure are in the results section. URIC ACID AM 06/27/2022 3:13 Results for AM HAND ROLLER this procedure are in the results section. PHOSPHORUS LEVEL AM 06/27/2022 3:13 Results for AM HAND ROLLER this procedure are in the results section. MAGNESIUM LEVEL AM 06/27/2022 3:13 Results f or AM HAND ROLLER this procedure are in the results section. COMPREHENSIVE METABOLIC AM 06/27/2022 3:13 PANEL AM HAND ROLLER COMPLETE BLOOD COUNT W/ AM 06/27/2022 3:13 DIFFERENTIAL AM HAND ROLLER TRANSFUSE RED BLOOD Routine 06/26/2022 4:57 CELLS PM HAND ROLLER PRBC PRODUCT READY FOR Routine 06/26/2022 5:02 Re sults for METAL FENCE ERECTOR AM HAND ROLLER this procedure are in the results section. PREPARE RBC Routine 06/26/2022 5:02 Results for AM HAND ROLLER this procedure are in the results section. FRACTIONATED BILIRUBIN AM 06/26/2022 3:07 Re sults for AM HAND ROLLER this procedure are in the results section. TOTAL PROTEIN AM 06/26/2022 3:07 Results for AM HAND ROLLER this procedure are in the results section. ASPARTATE AM 06/26/2022 3:07 Results for AMINOTRANSFERASE AM HAND ROLLER this proced ure are in the results section. ALANINE AM 06/26/2022 3:07 Results for AMINOTRANSFERASE AM HAND ROLLER this proced ure are in the results section. ALKALINE PHOSPHATASE AM 06/26/2022 3:07 Resu lts for AM HAND ROLLER this procedure are in the results section. ALBUMIN LEVEL AM 06/26/2022 3:07 Results for AM HAND ROLLER this procedure are in the results section. CALCIUM LEVEL AM 06/26/2022 3:07 Results for AM HAND ROLLER this procedure are in the results section. .GLOMERULAR FILTRATION AM 06/26/2022 3:07 Re sults for RATE AM HAND ROLLER this procedure are in the results section. SERUM CREATININE AM 06/26/2022 3:07 Results for AM HAND ROLLER this procedure are in the results section. ELECTROLYTE PANEL AM 06/26/2022 3:07 Results for AM HAND ROLLER this procedure are in the results section. BLOOD UREA NITROGEN AM 06/26/2022 3:07 Resul ts for AM HAND ROLLER this procedure are in the results section. GLUCOSE LEVEL AM 06/26/2022 3:07 Results for AM HAND ROLLER this procedure are in the results section. DIFFERENTIAL AM 06/26/2022 3:07 Results for AM HAND ROLLER this procedure are in the results section. .CBC AM 06/26/2022 3:07 Results for AM HAND ROLLER this procedure are in the results section. LACTATE DEHYDROGENASE AM 06/26/2022 3:07 Res ults for AM HAND ROLLER this procedure are in the results section. URIC ACID AM 06/26/2022 3:07 Results for AM HAND ROLLER this procedure are in the results section. PHOSPHORUS LEVEL AM 06/26/2022 3:07 Results for AM HAND ROLLER this procedure are in the results section. MAGNESIUM LEVEL AM 06/26/2022 3:07 Results f or AM HAND ROLLER this procedure are in the results section. COMPREHENSIVE METABOLIC AM 06/26/2022 3:07 PANEL AM HAND ROLLER COMPLETE BLOOD COUNT W/ AM 06/26/2022 3:07 DIFFERENTIAL AM HAND ROLLER FIBRINOGEN Routine 06/26/2022 3:07 Results for AM HAND ROLLER this procedure are in the results section. D DIMER Routine 06/26/2022 3:07 Results for AM HAND ROLLER this procedure are in the results section. APTT Routine 06/26/2022 3:07 Results for AM HAND ROLLER this procedure are in the results section. PROTHROMBIN TIME Routine 06/26/2022 3:07 Results for AM HAND ROLLER this procedure are in the results section. HP FC MRD B ALL Routine 06/25/2022 1:57 INTERPRETATION AND PM HAND ROLLER REPORT HP CG CHROMOSOME Routine 06/25/2022 1:57 ANALYSIS INTERPRETATION PM HAND ROLLER AND REPORT HP T(9;22) BCR/ABL1 Routine 06/25/2022 1:57 QUANTITATIVE PCR PM HAND ROLLER INTERPRETATION AND REPORT HP MOLECULAR BLOOD Routine 06/25/2022 1:57 Result s for COLLECTION PM HAND ROLLER this procedure are in the results section. HP CYTOGENETICS BLOOD Routine 06/25/2022 1:57 Res ults for COLLECTION PM HAND ROLLER this procedure are in the results section. HP FC FLOW CYTOMETRY Routine 06/25/2022 1:57 Resu lts for BLOOD COLLECTION PM HAND ROLLER this proced ure are in the results section. 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 ADAPTIVE CLONOSEQ-SEND Routine 06/25/2022 1:57 Acute lymphoid Results for OUT, BONE MARROW PM HAND ROLLER leukemia this proced ure are in the results section. HEMATOPATHOLOGY BONE Routine 06/25/2022 1:56 Acute lymphoid Re sults for MARROW DIFFERENTIAL PM HAND ROLLER leukemia this pro cedure are in the results section. HEMATOPATHOLOGY BONE Routine 06/25/2022 1:56 Acute lymphoid Re sults for MARROW INTERPRETATION PM HAND ROLLER leukemia this p rocedure are in the results section. TN DIAGNOSTIC BONE Routine 06/25/2022 1:19 Acute lymphoid Resu lts for MARROW BIOPSIES & PM HAND ROLLER leukemia this proce dure ASPIRATIONS are in the results section. TMP CROSSMATCH Routine 06/25/2022 8:02 Results fo r INTERPRETATION AM HAND ROLLER this procedur e are in the results section. TMP INTERPRETATION Routine 06/25/2022 8:02 Result s for ANTIBODY SCREEN AM HAND ROLLER this procedu re NEGATIVE are in the results section. CLOT EXPIRATION DATE Routine 06/25/2022 8:02 Resu lts for AM HAND ROLLER this procedure are in the results section. .GLOMERULAR FILTRATION Routine 06/25/2022 8:02 Acute lymphobla stic Results for RATE AM HAND ROLLER leukemia not having this pro cedure achieved remission are in th e results section. 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 DIFFERENTIAL Routine 06/25/2022 8:02 Acute lymphoblastic Resul ts for AM HAND ROLLER leukemia not having this pro cedure achieved remission are in th e results section. .CBC Routine 06/25/2022 8:02 Acute lymphoblastic Resul ts for AM HAND ROLLER leukemia not having this pro cedure achieved remission are in th e results section. ANTIBODY SCREEN Routine 06/25/2022 8:02 Acute lymphoblastic Re sults for AM HAND ROLLER leukemia not having this pro cedure achieved remission are in th e results section. ABORH Routine 06/25/2022 8:02 Acute lymphoblastic Resul ts for AM HAND ROLLER leukemia not having this pro cedure achieved remission are in th e results section. PERIPHERAL SMR FOR BONE Routine 06/25/2022 8:02 Acute lymphoid Results for MARROW AM HAND ROLLER leukemia this procedure are in the results section. MAGNESIUM LEVEL Routine 06/25/2022 8:02 Acute lymphoblastic Re sults for AM HAND ROLLER leukemia not having this pro cedure achieved remission are in th e results section. 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 ALANINE Routine 06/25/2022 8:02 Acute lymphoblastic Resul ts for AMINOTRANSFERASE AM HAND ROLLER leukemia not having this procedure achieved remission are in th e results section. LACTATE DEHYDROGENASE Routine 06/25/2022 8:02 Acute lymphoblas tic Results for AM HAND ROLLER leukemia not having this pro cedure achieved remission are in th e results section. ALKALINE PHOSPHATASE Routine 06/25/2022 8:02 Acute lymphoblast ic Results for AM HAND ROLLER leukemia not having this pro cedure achieved remission are in th e results section. FRACTIONATED BILIRUBIN Routine 06/25/2022 8:02 Acute lymphobla stic Results for AM HAND ROLLER leukemia not having this pro cedure achieved remission are in th e results section. URIC ACID Routine 06/25/2022 8:02 Acute lymphoblastic Resul ts for AM HAND ROLLER leukemia not having this pro cedure achieved remission are in th e results section. 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 GLUCOSE, RANDOM Routine 06/25/2022 8:02 Acute lymphoblastic Re sults for AM HAND ROLLER leukemia not having this pro cedure achieved remission are in th e results section. PHOSPHORUS LEVEL Routine 06/25/2022 8:02 Acute lymphoblastic R esults for AM HAND ROLLER leukemia not having this pro cedure achieved remission are in th e results section. CALCIUM LEVEL Routine 06/25/2022 8:02 Acute lymphoblastic Resu lts for AM HAND ROLLER leukemia not having this pro cedure achieved remission are in th e results section. ALBUMIN LEVEL Routine 06/25/2022 8:02 Acute lymphoblastic Resu lts for AM HAND ROLLER leukemia not having this pro cedure achieved remission are in th e results section. TOTAL PROTEIN Routine 06/25/2022 8:02 Acute lymphoblastic Resu lts for AM HAND ROLLER leukemia not having this pro cedure achieved remission are in th e results section. 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 XR CHEST 2 VW Routine 06/25/2022 7:16 Acute lymphoid Results f or AM HAND ROLLER leukemia this procedure are in the results section. CT HEAD WO CONTRAST Routine 06/25/2022 7:08 Acute lymphoid Res ults for AM HAND ROLLER leukemia this procedure are in the results section. EKG, 12-LEAD Routine 06/25/2022 Acute lymphoid (SCHEDULED) leukemia TMP INTERPRETATION Routine 06/20/2022 10:25 Resul ts for ANTIBODY SCREEN AM HAND ROLLER this procedu re NEGATIVE are in the results section. CLOT EXPIRATION DATE Routine 06/20/2022 10:25 Res ults for AM HAND ROLLER this procedure are in the results section. 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 ANTIBODY SCREEN Routine 06/20/2022 10:25 Acute lymphoblastic R esults for AM HAND ROLLER leukemia not having this pro cedure achieved remission are in th e results section. ABORH Routine 06/20/2022 10:25 Acute lymphoblastic Resu lts for AM HAND ROLLER leukemia not having this pro cedure achieved remission are in th e results section. DIFFERENTIAL Routine 06/20/2022 10:25 Acute lymphoblastic Resu lts for AM HAND ROLLER leukemia not having this pro cedure achieved remission are in th e results section. .CBC Routine 06/20/2022 10:25 Acute lymphoblastic Resu lts for AM HAND ROLLER leukemia not having this pro cedure achieved remission are in th e results section. MAGNESIUM LEVEL Routine 06/20/2022 10:25 Acute lymphoblastic R esults for AM HAND ROLLER leukemia not having this pro cedure achieved remission are in th e results section. ELECTROLYTE PANEL Routine 06/20/2022 10:25 Acute lymphoblastic Results for AM [employer] leukemia not having this pro cedure achieved remission are in th e results section. ALANINE Routine 06/20/2022 10:25 Acute lymphoblastic Resu lts for AMINOTRANSFERASE AM [employer] leukemia not having this procedure achieved remission are in th e results section. LACTATE DEHYDROGENASE Routine 06/20/2022 10:25 Acute lymphobla stic Results for AM [employer] leukemia not having this pro cedure achieved remission are in th e results section. ALKALINE PHOSPHATASE Routine 06/20/2022 10:25 Acute lymphoblas tic Results for AM [employer] leukemia not having this pro cedure achieved remission are in th e results section. FRACTIONATED BILIRUBIN Routine 06/20/2022 10:25 Acute lymphobl astic Results for AM [employer] leukemia not having this pro cedure achieved remission are in th e results section. URIC ACID Routine 06/20/2022 10:25 Acute lymphoblastic Resu lts for AM [employer] leukemia not having this pro cedure achieved remission are in th e results section. 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 GLUCOSE, RANDOM Routine 06/20/2022 10:25 Acute lymphoblastic R esults for AM [employer] leukemia not having this pro cedure achieved remission are in th e results section. 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 CALCIUM LEVEL Routine 06/20/2022 10:25 Acute lymphoblastic Res ults for AM [employer] leukemia not having this pro cedure achieved remission are in th e results section. ALBUMIN LEVEL Routine 06/20/2022 10:25 Acute lymphoblastic Res ults for AM [employer] leukemia not having this pro cedure achieved remission are in th e results section. TOTAL PROTEIN Routine 06/20/2022 10:25 Acute lymphoblastic Res ults for AM [employer] leukemia not having this pro cedure achieved remission are in th e results section. 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 TMP INTERPRETATION Routine 06/18/2022 8:15 Result s for ANTIBODY SCREEN [employer] this procedu re NEGATIVE are in the results section. .GLOMERULAR FILTRATION Routine 06/18/2022 8:15 Acute lymphobla stic Results for RATE AM [employer] leukemia not having this pro cedure achieved remission are in th e results section. SERUM CREATININE Routine 06/18/2022 8:15 Acute lymphoblastic R esults for AM [employer] leukemia not having this pro cedure achieved remission are in th e results section. ANTIBODY SCREEN Routine 06/18/2022 8:15 Acute lymphoblastic Re sults for AM [employer] leukemia not having this pro cedure achieved remission are in th e results section. ABORH Routine 06/18/2022 8:15 Acute lymphoblastic Resul ts for AM [employer] leukemia not having this pro cedure achieved remission are in th e results section. DIFFERENTIAL Routine 06/18/2022 8:15 Acute lymphoblastic Resul ts for AM [employer] leukemia not having this pro cedure achieved remission are in th e results section. .CBC STAT 06/18/2022 8:15 Acute lymphoblastic Resul ts for AM [employer] leukemia not having this pro cedure achieved remission are in th e results section. MAGNESIUM LEVEL Routine 06/18/2022 8:15 Acute lymphoblastic Re sults for AM [employer] leukemia not having this pro cedure achieved remission are in th e results section. ELECTROLYTE PANEL Routine 06/18/2022 8:15 Acute lymphoblastic Results for AM [employer] leukemia not having this pro cedure achieved remission are in th e results section. ALANINE Routine 06/18/2022 8:15 Acute lymphoblastic Resul ts for AMINOTRANSFERASE AM [employer] leukemia not having this procedure achieved remission are in th e results section. LACTATE DEHYDROGENASE Routine 06/18/2022 8:15 Acute lymphoblas tic Results for AM [employer] leukemia not having this pro cedure achieved remission are in th e results section. ALKALINE PHOSPHATASE Routine 06/18/2022 8:15 Acute lymphoblast ic Results for AM [employer] leukemia not having this pro cedure achieved remission are in th e results section. FRACTIONATED BILIRUBIN Routine 06/18/2022 8:15 Acute lymphobla stic Results for AM [employer] leukemia not having this pro cedure achieved remission are in th e results section. URIC ACID Routine 06/18/2022 8:15 Acute lymphoblastic Resul ts for AM [employer] leukemia not having this pro cedure achieved remission are in th e results section. 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 GLUCOSE, RANDOM Routine 06/18/2022 8:15 Acute lymphoblastic Re sults for AM [employer] leukemia not having this pro cedure achieved remission are in th e results section. PHOSPHORUS LEVEL Routine 06/18/2022 8:15 Acute lymphoblastic R esults for AM [employer] leukemia not having this pro cedure achieved remission are in th e results section. CALCIUM LEVEL Routine 06/18/2022 8:15 Acute lymphoblastic Resu lts for AM [employer] leukemia not having this pro cedure achieved remission are in th e results section. ALBUMIN LEVEL Routine 06/18/2022 8:15 Acute lymphoblastic Resu lts for AM [employer] leukemia not having this pro cedure achieved remission are in th e results section. TOTAL PROTEIN Routine 06/18/2022 8:15 Acute lymphoblastic Resu lts for AM [employer] leukemia not having this pro cedure achieved remission are in th e results section. 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 PREPARE PLATELETS Routine 06/16/2022 10:45 Acute lymphoblastic Results for AM [employer] leukemia not having this pro cedure achieved remission are in th e results section. CLOT EXPIRATION DATE Routine 06/16/2022 8:55 Resu lts for AM [employer] this procedure are in the results section. TMP INTERPRETATION Routine 06/16/2022 8:55 Result s for ANTIBODY SCREEN [employer] this procedu re NEGATIVE are in the results section. .GLOMERULAR FILTRATION Routine 06/16/2022 8:55 Acute lymphobla stic Results for RATE AM [employer] leukemia, in this procedure remission are in the results section. SERUM CREATININE Routine 06/16/2022 8:55 Acute lymphoblastic R esults for AM [employer] leukemia, in this procedure remission are in the results section. DIFFERENTIAL STAT 06/16/2022 8:55 Acute lymphoblastic Resul ts for AM [employer] leukemia, in this procedure remission are in the results section. 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 ANTIBODY SCREEN Routine 06/16/2022 8:55 Acute lymphoblastic Re sults for AM [employer] leukemia, in this procedure remission are in the results section. 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 MAGNESIUM LEVEL Routine 06/16/2022 8:55 Acute lymphoblastic Re sults for AM [employer] leukemia, in this procedure remission are in the results section. ELECTROLYTE PANEL Routine 06/16/2022 8:55 Acute lymphoblastic Results for AM [employer] leukemia, in this procedure remission are in the results section. ALANINE Routine 06/16/2022 8:55 Acute lymphoblastic Resul ts for AMINOTRANSFERASE AM [employer] leukemia, in this proced ure remission are in the results section. LACTATE DEHYDROGENASE Routine 06/16/2022 8:55 Acute lymphoblas tic Results for AM [employer] leukemia, in this procedure remission are in the results section. ALKALINE PHOSPHATASE Routine 06/16/2022 8:55 Acute lymphoblast ic Results for AM [employer] leukemia, in this procedure remission are in the results section. FRACTIONATED BILIRUBIN Routine 06/16/2022 8:55 Acute lymphobla stic Results for AM [employer] leukemia, in this procedure remission are in the results section. 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 GLUCOSE, RANDOM Routine 06/16/2022 8:55 Acute lymphoblastic Re sults for AM [employer] leukemia, in this procedure remission are in the results section. PHOSPHORUS LEVEL Routine 06/16/2022 8:55 Acute lymphoblastic R esults for AM [employer] leukemia, in this procedure remission are in the results section. CALCIUM LEVEL Routine 06/16/2022 8:55 Acute lymphoblastic Resu lts for AM [employer] leukemia, in this procedure remission are in the results section. ALBUMIN LEVEL Routine 06/16/2022 8:55 Acute lymphoblastic Resu lts for AM [employer] leukemia, in this procedure remission are in the results section. TOTAL PROTEIN Routine 06/16/2022 8:55 Acute lymphoblastic Resu lts for AM [employer] leukemia, in this procedure remission are in the results section. 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 PREPARE PLATELETS Routine 06/14/2022 1:05 Results for AM [employer] this procedure are in the results section. ANION GAP AM 06/14/2022 12:32 Results for AM [employer] this procedure are in the results section. .GLOMERULAR FILTRATION AM 06/14/2022 12:32 R esults for RATE [employer] this procedure are in the results section. SERUM CREATININE AM 06/14/2022 12:32 Results for AM [employer] this procedure are in the results section. DIFFERENTIAL AM 06/14/2022 12:32 Results for AM [employer] this procedure are in the results section. .CBC AM 06/14/2022 12:32 Results for AM [employer] this procedure are in the results section. LACTATE DEHYDROGENASE AM 06/14/2022 12:32 Re sults for AM [employer] this procedure are in the results section. URIC ACID AM 06/14/2022 12:32 Results for AM [employer] this procedure are in the results section. ALANINE AM 06/14/2022 12:32 Results for AMINOTRANSFERASE AM [employer] this proced ure are in the results section. ALKALINE PHOSPHATASE AM 06/14/2022 12:32 Res ults for AM [employer] this procedure are in the results section. FRACTIONATED BILIRUBIN AM 06/14/2022 12:32 R esults for AM [employer] this procedure are in the results section. PHOSPHORUS LEVEL AM 06/14/2022 12:32 Results for AM [employer] this procedure are in the results section. ALBUMIN LEVEL AM 06/14/2022 12:32 Results fo r AM [employer] this procedure are in the results section. TOTAL PROTEIN AM 06/14/2022 12:32 Results fo r AM [employer] this procedure are in the results section. CARBON DIOXIDE LEVEL AM 06/14/2022 12:32 Res ults for AM [employer] this procedure are in the results section. CHLORIDE LEVEL AM 06/14/2022 12:32 Results f or AM [employer] this procedure are in the results section. MAGNESIUM LEVEL AM 06/14/2022 12:32 Results for AM [employer] this procedure are in the results section. POTASSIUM LEVEL AM 06/14/2022 12:32 Results for AM [employer] this procedure are in the results section. SODIUM LEVEL AM 06/14/2022 12:32 Results for AM [employer] this procedure are in the results section. CREATININE AM 06/14/2022 12:32 AM [employer] BLOOD UREA NITROGEN AM 06/14/2022 12:32 Resu lts for AM [employer] this procedure are in the results section. CALCIUM LEVEL AM 06/14/2022 12:32 Results fo r AM [employer] this procedure are in the results section. GLUCOSE, RANDOM AM 06/14/2022 12:32 Results for AM [employer] this procedure are in the results section. COMPLETE BLOOD COUNT W/ AM 06/14/2022 12:32 DIFFERENTIAL AM [employer] ANION GAP AM 06/13/2022 4:16 Results for AM [employer] this procedure are in the results section. .GLOMERULAR FILTRATION AM 06/13/2022 4:16 Re sults for RATE [employer] this procedure are in the results section. SERUM CREATININE AM 06/13/2022 4:16 Results for AM [employer] this procedure are in the results section. DIFFERENTIAL AM 06/13/2022 4:16 Results for AM [employer] this procedure are in the results section. .CBC AM 06/13/2022 4:16 Results for AM [employer] this procedure are in the results section. LACTATE DEHYDROGENASE AM 06/13/2022 4:16 Res ults for AM [employer] this procedure are in the results section. URIC ACID AM 06/13/2022 4:16 Results for AM [employer] this procedure are in the results section. ALANINE AM 06/13/2022 4:16 Results for AMINOTRANSFERASE AM [employer] this proced ure are in the results section. ALKALINE PHOSPHATASE AM 06/13/2022 4:16 Resu lts for AM [employer] this procedure are in the results section. FRACTIONATED BILIRUBIN AM 06/13/2022 4:16 Re sults for AM [employer] this procedure are in the results section. PHOSPHORUS LEVEL AM 06/13/2022 4:16 Results for AM [employer] this procedure are in the results section. ALBUMIN LEVEL AM 06/13/2022 4:16 Results for AM [employer] this procedure are in the results section. TOTAL PROTEIN AM 06/13/2022 4:16 Results for AM [employer] this procedure are in the results section. CARBON DIOXIDE LEVEL AM 06/13/2022 4:16 Resu lts for AM [employer] this procedure are in the results section. CHLORIDE LEVEL AM 06/13/2022 4:16 Results fo r AM [employer] this procedure are in the results section. MAGNESIUM LEVEL AM 06/13/2022 4:16 Results f or AM [employer] this procedure are in the results section. POTASSIUM LEVEL AM 06/13/2022 4:16 Results f or AM [employer] this procedure are in the results section. SODIUM LEVEL AM 06/13/2022 4:16 Results for AM [employer] this procedure are in the results section. CREATININE AM 06/13/2022 4:16 AM [employer] BLOOD UREA NITROGEN AM 06/13/2022 4:16 Resul ts for AM [employer] this procedure are in the results section. CALCIUM LEVEL AM 06/13/2022 4:16 Results for AM [employer] this procedure are in the results section. GLUCOSE, RANDOM AM 06/13/2022 4:16 Results f or AM [employer] this procedure are in the results section. COMPLETE BLOOD COUNT W/ AM 06/13/2022 4:16 DIFFERENTIAL AM [employer] GASTROINTESTINAL Routine 06/12/2022 3:56 Results for MULTIPLEX PANEL PATH AM [employer] this pr ocedure REVIEW are in the results section. C DIFFICILE DNA ASSAY Routine 06/12/2022 3:56 Res ults for PATH REVIEW [employer] this procedure are in the results section. C. DIFFICILE DNA Now 06/12/2022 3:56 Results for DETECTION [employer] this procedure are in the results section. GASTROINTESTINAL Now 06/12/2022 3:56 Results for MULTIPLEX PCR PANEL AM [employer] this pro cedure are in the results section. ANION GAP AM 06/12/2022 1:10 Results for AM [employer] this procedure are in the results section. CALCIUM IONIZED, VENOUS Routine 06/12/2022 1:10 R esults for AM [employer] this procedure are in the results section. DIFFERENTIAL Routine 06/12/2022 1:10 Results for AM [employer] this procedure are in the results section. .CBC Routine 06/12/2022 1:10 Results for AM [employer] this procedure are in the results section. .GLOMERULAR FILTRATION AM 06/12/2022 1:10 Re sults for RATE [employer] this procedure are in the results section. SERUM CREATININE AM 06/12/2022 1:10 Results for AM [employer] this procedure are in the results section. FIBRINOGEN Routine 06/12/2022 1:10 Results for AM [employer] this procedure are in the results section. D DIMER Routine 06/12/2022 1:10 Results for AM [employer] this procedure are in the results section. APTT Routine 06/12/2022 1:10 Results for AM [employer] this procedure are in the results section. PROTHROMBIN TIME Routine 06/12/2022 1:10 Results for AM [employer] this procedure are in the results section. LACTATE DEHYDROGENASE AM 06/12/2022 1:10 Res ults for AM [employer] this procedure are in the results section. URIC ACID AM 06/12/2022 1:10 Results for AM [employer] this procedure are in the results section. ALANINE AM 06/12/2022 1:10 Results for AMINOTRANSFERASE AM [employer] this proced ure are in the results section. ALKALINE PHOSPHATASE AM 06/12/2022 1:10 Resu lts for AM [employer] this procedure are in the results section. FRACTIONATED BILIRUBIN AM 06/12/2022 1:10 Re sults for AM [employer] this procedure are in the results section. PHOSPHORUS LEVEL AM 06/12/2022 1:10 Results for AM [employer] this procedure are in the results section. ALBUMIN LEVEL AM 06/12/2022 1:10 Results for AM [employer] this procedure are in the results section. TOTAL PROTEIN AM 06/12/2022 1:10 Results for AM [employer] this procedure are in the results section. CARBON DIOXIDE LEVEL AM 06/12/2022 1:10 Resu lts for AM [employer] this procedure are in the results section. CHLORIDE LEVEL AM 06/12/2022 1:10 Results fo r AM [employer] this procedure are in the results section. MAGNESIUM LEVEL AM 06/12/2022 1:10 Results f or AM [employer] this procedure are in the results section. POTASSIUM LEVEL AM 06/12/2022 1:10 Results f or AM [employer] this procedure are in the results section. SODIUM LEVEL AM 06/12/2022 1:10 Results for AM [employer] this procedure are in the results section. CREATININE AM 06/12/2022 1:10 AM [employer] BLOOD UREA NITROGEN AM 06/12/2022 1:10 Resul ts for AM [employer] this procedure are in the results section. CALCIUM LEVEL AM 06/12/2022 1:10 Results for AM [employer] this procedure are in the results section. GLUCOSE, RANDOM AM 06/12/2022 1:10 Results f or AM [employer] this procedure are in the results section. BASIC METABOLIC PANEL, Routine 06/12/2022 1:10 CALCIUM IONIZED AM [employer] COMPLETE BLOOD COUNT W/ Routine 06/12/2022 1:10 DIFFERENTIAL AM [employer] LACTIC ACID, VENOUS AM 06/12/2022 1:10 Resul ts for AM [employer] this procedure are in the results section. URINALYSIS WITH Routine 06/11/2022 5:36 Results f or MICROSCOPIC PM [employer] this procedure are in the results section. URINALYSIS WITH Now 06/11/2022 5:36 Results f or MICROSCOPIC IF PM [employer] this procedur e INDICATED are in the results section. URINE CULTURE Now 06/11/2022 5:36 Results for PM [employer] this procedure are in the results section. VRE CULTURE Routine 06/11/2022 12:39 Results for PM [employer] this procedure are in the results section. TMP INTERPRETATION Routine 06/11/2022 12:20 Resul ts for ANTIBODY SCREEN PM [employer] this procedu re NEGATIVE are in the results section. CLOT EXPIRATION DATE Routine 06/11/2022 12:20 Res ults for PM [employer] this procedure are in the results section. ANTIBODY SCREEN Routine 06/11/2022 12:20 Results for PM [employer] this procedure are in the results section. ABORH Routine 06/11/2022 12:20 Results for PM [employer] this procedure are in the results section. TYPE AND SCREEN Routine 06/11/2022 12:20 PM [employer] LACTIC ACID, VENOUS STAT 06/11/2022 9:01 Resul ts for AM [employer] this procedure are in the results section. COVID-19 Now 06/11/2022 9:01 Results for (SARS-COV-2)PCR - AM [employer] this pro cedure ASYMPTOMATIC - LT are in the results section. BLOOD CULTURE Now 06/11/2022 9:01 Results for AM [employer] this procedure are in the results section. CLOT EXPIRATION DATE Routine 06/11/2022 7:48 Resu lts for AM [employer] this procedure are in the results section. TMP INTERPRETATION Routine 06/11/2022 7:48 Result s for ANTIBODY SCREEN AM [employer] this procedu re NEGATIVE are in the results section. 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 .GLOMERULAR FILTRATION Routine 06/11/2022 7:48 Acute lymphobla stic Results for RATE AM [employer] leukemia not having this pro cedure achieved remission are in th e results section. SERUM CREATININE Routine 06/11/2022 7:48 Acute lymphoblastic R esults for AM [employer] leukemia not having this pro cedure achieved remission are in th e results section. 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 ELECTROLYTE PANEL Routine 06/11/2022 7:48 Acute lymphoblastic Results for AM [employer] leukemia not having this pro cedure achieved remission are in th e results section. ALANINE Routine 06/11/2022 7:48 Acute lymphoblastic Resul ts for AMINOTRANSFERASE AM [employer] leukemia not having this procedure achieved remission are in th e results section. LACTATE DEHYDROGENASE Routine 06/11/2022 7:48 Acute lymphoblas tic Results for AM [employer] leukemia not having this pro cedure achieved remission are in th e results section. ALKALINE PHOSPHATASE Routine 06/11/2022 7:48 Acute lymphoblast ic Results for AM [employer] leukemia not having this pro cedure achieved remission are in th e results section. FRACTIONATED BILIRUBIN Routine 06/11/2022 7:48 Acute lymphobla stic Results for AM [employer] leukemia not having this pro cedure achieved remission are in th e results section. 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 GLUCOSE, RANDOM Routine 06/11/2022 7:48 Acute lymphoblastic Re sults for AM [employer] leukemia not having this pro cedure achieved remission are in th e results section. PHOSPHORUS LEVEL Routine 06/11/2022 7:48 Acute lymphoblastic R esults for AM [employer] leukemia not having this pro cedure achieved remission are in th e results section. CALCIUM LEVEL Routine 06/11/2022 7:48 Acute lymphoblastic Resu lts for AM [employer] leukemia not having this pro cedure achieved remission are in th e results section. ALBUMIN LEVEL Routine 06/11/2022 7:48 Acute lymphoblastic Resu lts for AM [employer] leukemia not having this pro cedure achieved remission are in th e results section. TOTAL PROTEIN Routine 06/11/2022 7:48 Acute lymphoblastic Resu lts for AM [employer] leukemia not having this pro cedure achieved remission are in th e results section. 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 .CBC STAT 06/11/2022 7:48 Results for AM [employer] this procedure are in the results section. CLOT EXPIRATION DATE Routine 06/10/2022 7:53 Resu lts for AM [employer] this procedure are in the results section. TMP INTERPRETATION Routine 06/10/2022 7:53 Result s for ANTIBODY SCREEN AM HAND ROLLER this procedu re NEGATIVE are in the results section. .GLOMERULAR FILTRATION Routine 06/10/2022 7:53 Acute lymphobla stic Results for RATE AM HAND ROLLER leukemia not having this pro cedure achieved remission are in th e results section. SERUM CREATININE Routine 06/10/2022 7:53 Acute lymphoblastic R esults for AM HAND ROLLER leukemia not having this pro cedure achieved remission are in th e results section. .CBC STAT 06/10/2022 7:53 Acute lymphoblastic Resul ts for AM HAND ROLLER leukemia not having this pro cedure achieved remission are in th e results section. ANTIBODY SCREEN Routine 06/10/2022 7:53 Acute lymphoblastic Re sults for AM HAND ROLLER leukemia not having this pro cedure achieved remission are in th e results section. ABORH Routine 06/10/2022 7:53 Acute lymphoblastic Resul ts for AM HAND ROLLER leukemia not having this pro cedure achieved remission are in th e results section. MAGNESIUM LEVEL Routine 06/10/2022 7:53 Acute lymphoblastic Re sults for AM HAND ROLLER leukemia not having this pro cedure achieved remission are in th e results section. ELECTROLYTE PANEL Routine 06/10/2022 7:53 Acute lymphoblastic Results for AM HAND ROLLER leukemia not having this pro cedure achieved remission are in th e results section. ALANINE Routine 06/10/2022 7:53 Acute lymphoblastic Resul ts for AMINOTRANSFERASE AM HAND ROLLER leukemia not having this procedure achieved remission are in th e results section. LACTATE DEHYDROGENASE Routine 06/10/2022 7:53 Acute lymphoblas tic Results for AM HAND ROLLER leukemia not having this pro cedure achieved remission are in th e results section. ALKALINE PHOSPHATASE Routine 06/10/2022 7:53 Acute lymphoblast ic Results for AM HAND ROLLER leukemia not having this pro cedure achieved remission are in th e results section. FRACTIONATED BILIRUBIN Routine 06/10/2022 7:53 Acute lymphobla stic Results for AM HAND ROLLER leukemia not having this pro cedure achieved remission are in th e results section. URIC ACID Routine 06/10/2022 7:53 Acute lymphoblastic Resul ts for AM HAND ROLLER leukemia not having this pro cedure achieved remission are in th e results section. CREATININE Routine 06/10/2022 7:53 Acute lymphoblastic AM HAND ROLLER leukemia not having achieved remission BLOOD UREA NITROGEN Routine 06/10/2022 7:53 Acute lymphoblasti c Results for AM HAND ROLLER leukemia not having this pro cedure achieved remission are in th e results section. GLUCOSE, RANDOM Routine 06/10/2022 7:53 Acute lymphoblastic Re sults for AM HAND ROLLER leukemia not having this pro cedure achieved remission are in th e results section. PHOSPHORUS LEVEL Routine 06/10/2022 7:53 Acute lymphoblastic R esults for AM HAND ROLLER leukemia not having this pro cedure achieved remission are in th e results section. CALCIUM LEVEL Routine 06/10/2022 7:53 Acute lymphoblastic Resu lts for AM HAND ROLLER leukemia not having this pro cedure achieved remission are in th e results section. ALBUMIN LEVEL Routine 06/10/2022 7:53 Acute lymphoblastic Resu lts for AM HAND ROLLER leukemia not having this pro cedure achieved remission are in th e results section. TOTAL PROTEIN Routine 06/10/2022 7:53 Acute lymphoblastic Resu lts for AM HAND ROLLER leukemia not having this pro cedure achieved remission are in th e results section. 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 POC URINE PH Routine 06/08/2022 5:34 Results for AM HAND ROLLER this procedure are in the results section. TMP INTERPRETATION Routine 06/08/2022 1:59 Result s for ANTIBODY SCREEN AM HAND ROLLER this procedu re NEGATIVE are in the results section. CLOT EXPIRATION DATE Routine 06/08/2022 1:59 Resu lts for AM HAND ROLLER this procedure are in the results section. ANION GAP AM 06/08/2022 1:59 Results for AM HAND ROLLER this procedure are in the results section. .GLOMERULAR FILTRATION AM 06/08/2022 1:59 Re sults for RATE AM HAND ROLLER this procedure are in the results section. SERUM CREATININE AM 06/08/2022 1:59 Results for AM HAND ROLLER this procedure are in the results section. DIFFERENTIAL AM 06/08/2022 1:59 Results for AM HAND ROLLER this procedure are in the results section. .CBC AM 06/08/2022 1:59 Results for AM HAND ROLLER this procedure are in the results section. ANTIBODY SCREEN Routine 06/08/2022 1:59 Results f or AM HAND ROLLER this procedure are in the results section. ABORH Routine 06/08/2022 1:59 Results for AM HAND ROLLER this procedure are in the results section. FIBRINOGEN Routine 06/08/2022 1:59 Results for AM HAND ROLLER this procedure are in the results section. D DIMER Routine 06/08/2022 1:59 Results for AM HAND ROLLER this procedure are in the results section. APTT Routine 06/08/2022 1:59 Results for AM HAND ROLLER this procedure are in the results section. PROTHROMBIN TIME Routine 06/08/2022 1:59 Results for AM HAND ROLLER this procedure are in the results section. LACTATE DEHYDROGENASE AM 06/08/2022 1:59 Res ults for AM HAND ROLLER this procedure are in the results section. URIC ACID AM 06/08/2022 1:59 Results for AM HAND ROLLER this procedure are in the results section. ALANINE AM 06/08/2022 1:59 Results for AMINOTRANSFERASE AM HAND ROLLER this proced ure are in the results section. ALKALINE PHOSPHATASE AM 06/08/2022 1:59 Resu lts for AM HAND ROLLER this procedure are in the results section. FRACTIONATED BILIRUBIN AM 06/08/2022 1:59 Re sults for AM HAND ROLLER this procedure are in the results section. PHOSPHORUS LEVEL AM 06/08/2022 1:59 Results for AM HAND ROLLER this procedure are in the results section. ALBUMIN LEVEL AM 06/08/2022 1:59 Results for AM HAND ROLLER this procedure are in the results section. TOTAL PROTEIN AM 06/08/2022 1:59 Results for AM HAND ROLLER this procedure are in the results section. CARBON DIOXIDE LEVEL AM 06/08/2022 1:59 Res ults for AM HAND ROLLER this procedure are in the results section. CHLORIDE LEVEL AM 06/08/2022 1:59 Results fo r AM HAND ROLLER this procedure are in the results section. MAGNESIUM LEVEL AM 06/08/2022 1:59 Results f or AM HAND ROLLER this procedure are in the results section. POTASSIUM LEVEL AM 06/08/2022 1:59 Results f or AM HAND ROLLER this procedure are in the results section. SODIUM LEVEL AM 06/08/2022 1:59 Results for AM HAND ROLLER this procedure are in the results section. CREATININE AM 06/08/2022 1:59 AM HAND ROLLER BLOOD UREA NITROGEN AM 06/08/2022 1:59 Resul ts for AM HAND ROLLER this procedure are in the results section. CALCIUM LEVEL AM 06/08/2022 1:59 Results for AM HAND ROLLER this procedure are in the results section. GLUCOSE, RANDOM AM 06/08/2022 1:59 Results f or AM HAND ROLLER this procedure are in the results section. COMPLETE BLOOD COUNT W/ AM 06/08/2022 1:59 DIFFERENTIAL AM HAND ROLLER TYPE AND SCREEN Routine 06/08/2022 1:59 AM HAND ROLLER after 06/08/2022 Results Historical ABORh (05/27/2023 2:34 PM HAND ROLLER) athologist Signature ABORh AB POS 05/27/2023 [facility] 2:35 PM HAND ROLLER [facility] Specimen Anatomical Collection Method Collection Time Receive d Time (Source) Location / / Volume Laterality Blood Peripheral blood 05/27/2023 2:34 PM 05/27 2:34 specimen / Unknown HAND ROLLER PM HAND ROLLER Magalis [facility] BLOOD BANK TEST ORDERABLES Performing Organization Address City/State/ZIP Code Phon e Number [facility] [place] [address] CENTER - TRANSFUSION [facility] SERVICES Transfusion Services [address] [id number] Glucose, Random (05/27/2023 1:46 PM HAND ROLLER)Only the most recent of61 resultswithin the time period is included. athologist Signature Glucose Random 141 70 - 199 05/27/2023 [facility] mg/dL 2:35 PM [facility] Specimen Anatomical Collection Method / Collection Time Recei arianne Time (Source) Location / Volume Laterality Blood Peripheral blood Venipuncture / 05/27/2023 1:46 2022 1:48 specimen / Unknown Unknown PM HAND ROLLER PM HAND ROLLER Narrative [facility] - 3 2:35 PM HAND ROLLER Effective 02/13/16, the glucose reference intervals have been updated based on [place] [employer] guidelines (Standards of Medical Care in Diabetes 2016. Diabetes Care 2016; 39: S13-S22). Fastin g blood glucose: Normal: 70-99 mg/dL Impaired fasting glucose (increased risk for diab etes or pre-diabetes): 100-125 mg/dL Diabetes mellitus: >/=126 mg/dL Random blood gluc ose: Normal: 70-199 mg/dL Note: Random glucose >100 mg/dL is associated with in creased risk for diabetes Magalis [facility] LAB BLOOD ORDERABLES Performing Organization Address City/State/ZIP Code Phon e Number [facility] CANCER Unless otherwise noted, [place] [address] CENTER all lab tests performed by: Division of Pathology and Laboratory Medicine [address] (ABNORMAL) .CBC (05/27/2023 1:46 PM [facility])Only the most recent of89 resultswithin the time period is included. [facility] gist Method Time Signature White Blood Cell 9.5 4.1 - 05/27/2023 [place] 10.5 K/uL 2:02 PM [facility] Red Blood Cell 3.10 (L) 4.30 - 05/27/2023 [place] 6.04 M/uL 2:02 PM [facility] Hemoglobin 10.7 (L) 13.3 - 05/27/2023 [place] 17.4 g/dL 2:02 PM [facility] Hematocrit 31.7 (L) 39.5 - 05/27/2023 [place] 51.8 % 2:02 PM [facility] Mean Cell Volume 102 (H) 82 - 99 05/27/2023 [place] fL 2:02 PM [facility] Mean Cell 34.5 (H) 26.6 - 05/27/2023 [place] Hemoglobin 33.2 pg 2:02 PM [facility] Mean Cell 33.8 31.1 - 05/27/2023 [place] Hemoglobin 35.2 g/dL 2:02 PM [facility] RDW-SD 52.6 (H) 37.5 - 05/27/2023 [place] 49.7 fL 2:02 PM [facility] Red Cell Diameter 14.4 11.6 - 05/27/2023 [place] Width 15.5 % 2:02 PM [facility] Platelet 114 (L) 160 - 397 05/27/2023 [place] K/uL 2:02 PM [facility] Mean Platelet 9.0 (L) 9.1 - 05/27/2023 [place] Volume 12.6 fL 2:02 PM [facility] INRBC 0.0 0.0 - 0.1 05/27/2023 [place] MD /100 WBC 2:02 PM [facility] Comment: The INRBC (instrument NRBC) value reflec ts the enumeration of nucleated red blood cells contained i n a 200uL sample of whole blood analyzed by the instrumen t. This value may differ from the NRBC value reported in a manual differential, which is based on a 100 cell differentia l. Neutrophil % 81.1 (H) 43.2 - 72.7 % 05/27/2023 2:02 PM [facility] Lymphocyte % 8.9 (L) 16.8 - 46.2 % 05/27/2023 2:02 PM [facility] Monocyte % 7.8 5.1 - 12.5 % 05/27/2023 2:02 PM [facility] Eosinophil % 0.9 0.4 - 6.3 % 05/27/2023 2:02 PM [facility] Basophil % 0.2 0.2 - 1.4 % 05/27/2023 2:02 PM [facility] IGRE % 1.1 0.1 - 1.5 % 05/27/2023 2:02 PM [facility] Comment: The IGRE% includes Metamyelocyt es, Myelocytes and Promyelocytes. Neutrophil Abs 7.70 (H) 1.95 - 7.25 K/uL 05/27/2023 2:02 PM [facility] Lymphocyte Abs 0.85 (L) 1.01 - 3.24 K/uL 05/27/2023 2:02 PM [facility] Monocyte Abs 0.74 0.24 - 0.85 K/uL 05/27/2023 2:02 PM [facility] Eosinophil Abs 0.09 0.02 - 0.50 K/uL 05/27/2023 2:02 PM [facility] Basophil Abs 0.02 0.02 - 0.09 K/uL 05/27/2023 2:02 PM [facility] IG Abs 0.10 0.01 - 0.12 K/uL 05/27/2023 2:02 PM [facility] Specimen Anatomical Collection Method / Collection Time Recei arianne Time (Source) Location / Volume Laterality Blood Peripheral blood Venipuncture / 05/27/2023 1:46 2022 1:49 specimen / Unknown Unknown PM HAND ROLLER PM HAND ROLLER Magalis [facility] LAB BLOOD ORDERABLES Performing Organization Address City/State/ZIP Code Phon e Number [facility] Unless otherwise noted, [place] [address] [place] all lab tests performed by: Division of Pathology and Laboratory Medicine [address] [place], [place] [address]vard Fractionated Bilirubin (05/27/2023 1:46 PM HAND ROLLER)Only the most recent of88 results within the time period is included. P athologist Signature Bilirubin <0.2 <=0.3 05/27/2023 [facility] Direct mg/dL 2:35 PM [facility] Comment: Indocyanine Green (ICG) may cau se falsely elevated bilirubin results. Total and direct bilirubin must not be measure d from samples containing indocyanine green. Bilirubin Indirect 05/27/2023 2:35 PM [facility] Comment: Unable to calculate Indirect Bi lirubin result due to some parameters are outside reportable range Bilirubin Total 0.3 <=1.2 mg/dL 05/27/2023 2:35 PM [facility] Comment: Indocyanine Green (ICG) may cau se falsely elevated bilirubin results. Total and direct bilirubin must not be measure d from samples containing indocyanine green. False elevation of total bilirubin can b e seen in patients with IgG concentrations above 28 g/L. Specimen Anatomical Collection Method / Collection Time Recei arianne Time (Source) Location / Volume Laterality Blood Peripheral blood Venipuncture / 05/27/2023 1:46 2022 1:48 specimen / Unknown Unknown PM HAND ROLLER PM HAND ROLLER Magalis R[facility] LAB BLOOD ORDERABLES Performing Organization Address City/State/ZIP Code Phon e Number [facility] CAN[facility]ER Unless otherwise noted, [address] all lab tests performed by: Division of Pathology and Laboratory Medicine [address] Type and Screen (05/27/2023 1:46 PM HAND ROLLER) Patholo gist Method Time Signature ABORh AB POS 05/27/2023 [facility] 1:18 PM [facility] CENTER - TRANSFUSION SERVICES Clot 05/30/2023 05/27/2023 [facility] Expiration 23:59 1:18 PM [facility] CENTER - TRANSFUSION SERVICES Historical Complete 05/27/2023 [facility] Record Check 1:18 PM [facility] C[facility] - TRANSFUSION SERVICES Specimen Anatomical Collection Method / Collection Time Recei arianne Time (Source) Location / Volume Laterality Blood Peripheral blood Venipuncture / 05/27/2023 1:46 2022 1:48 specimen / Unknown Unknown PM HAND ROLLER PM HAND ROLLER Mag[facility] BLOOD BANK TEST ORDERABLES Performing Organization Address City/[facility]/ZIP Code Phon e Number [facility] [place] [address] CENTER - TRANSFUSION [facility] SERVICES Transfusion Services [address] [id number] Uric Acid (05/27/2023 1:46 PM HAND ROLLER)Only the most recent of85 resultswithin the time period is included. [facility] Uric Acid 4.4 3.4 - 7.0 05/27/2023 [facility] mg/dL 2:35 PM HAND ROLLER [facility] CENTER Specimen Anatomical Collection Method / Collection Time Recei arianne Time (Source) Location / Volume Laterality Blood Peripheral blood Venipuncture / 05/27/2023 1:46 2022 1:48 specimen / Unknown Unknown PM HAND ROLLER PM HAND ROLLER Magalis R[facility]ERS LAB BLOOD ORDERABLES Performing Organization Address City/[facility]/ZIP Code Phon e Number [facility] CANCER Unless otherwise noted, [address] all lab tests performed by: Division of Pathology and Laboratory Medicine [address] BUN (05/27/2023 1:46 PM HAND ROLLER)Only the most recent of92 resultswithin the time period is included. [facility] BUN 15 6 - 23 05/27/2023 [facility] mg/dL 2:35 PM [facility] Specimen Anatomical Collection Method / Collection Time Recei arianne Time (Source) Location / Volume Laterality Blood Peripheral blood Venipuncture / 05/27/2023 1:46 2022 1:48 specimen / Unknown Unknown PM HAND ROLLER PM HAND ROLLER Magalis ROD[facility]ERS LAB BLOOD ORDERABLES Performing Organization Address City/[facility]/ZIP [facility] Phon e Number [facility] CANCER Unless otherwise noted, [address] all lab tests performed by: Division of Pathology and Laboratory Medicine [address] [facility] Alanine Aminotransferase (05/27/2023 1:46 PM HAND ROLLER)Only the most recent of88 resultswithin the time period is included. [facility] ALT 28 <=41 U/L 05/27/2023 2:35 [facility] PM HAND ROLLER [facility] CENTER Specimen Anatomical Collection Method / Collection Time Recei arianne Time (Source) Location / Volume Laterality Blood Peripheral blood Venipuncture / 05/27/2023 1:46 2022 1:48 specimen / Unknown Unknown PM HAND ROLLER PM HAND ROLLER Magalis R[facility]ERS LAB BLOOD ORDERABLES Performing Organization Address City/[facility]/ZIP Code Phon e Number [facility] CANCER Unless otherwise noted, [address] all lab tests performed by: Division of Pathology and Laboratory Medicine [address] Total Protein (05/27/2023 1:46 PM HAND ROLLER)Only the most recent of88 resultswithin the time period is included. athologist Signature Tot Protein 7.7 6.4 - 8.3 05/27/2023 [facility] gm/dL 2:35 PM [facility] Specimen Anatomical Collection Method / Collection Time Recei arianne Time (Source) Location / Volume Laterality Blood Peripheral blood Venipuncture / 05/27/2023 1:46 2022 1:48 specimen / Unknown Unknown PM HAND ROLLER PM HAND ROLLER Narrative [facility] - 2:35 PM HAND ROLLER Reference range established based on gavin [place] population Magalis R[facility]ERS LAB BLOOD ORDERABLES Performing Organization Address City/[facility]/ZIP Code Phon e Number [facility] Unless otherwise noted, [address] all lab tests performed by: Division of Pathology and Laboratory Medicine [address] Phosphorus Level (05/27/2023 1:46 PM HAND ROLLER)Only the most recent of92 resultswithin the time period is included. P athologist Signature Phosphorus 3.4 2.5 - 4.5 05/27/2023 [facility] Level mg/dL 2:35 PM [facility] Specimen Anatomical Collection Method / Collection Time Recei arianne Time (Source) Location / Volume Laterality Blood Peripheral blood Venipuncture / 05/27/2023 1:46 2022 1:48 specimen / Unknown Unknown PM HAND ROLLER PM HAND ROLLER Magalis RODGERS LAB BLOOD ORDERABLES Performing Organization Address City/[facility]/ZIP Code Phon e Number [facility]ER Unless otherwise noted, [address] all lab tests performed by: Division of Pathology and Laboratory Medicine [address] (ABNORMAL) Alkaline Phosphatase (05/27/2023 1:46 PM HAND ROLLER)Only the most recent of 88 resultswithin the time period is included. P athologist Signature Alkaline 39 (L) 40 - 129 05/27/2023 GABRIEL GARCIA Phosphatase U/L 2:35 PM [facility] Specimen Anatomical Collection Method / Collection Time Recei arianne Time (Source) Location / Volume Laterality Blood Peripheral blood Venipuncture / 05/27/2023 1:46 2022 1:48 specimen / Unknown Unknown PM HAND ROLLER PM HAND ROLLER Magalis RODGERS LAB BLOOD ORDERABLES Performing Organization Address City/[facility] Phon e Number [facility] CANCER Unless otherwise noted, [address] all lab tests performed by: Division of Pathology and Laboratory Medicine [address] [facility] Magnesium Level (05/27/2023 1:46 PM HAND ROLLER)Only the most recent of93 resultswithin the time period is included. athologist Signature Magnesium Level 2.2 1.6 - 2.6 05/27/2023 [place] MD SEGUNDO N mg/dL 2:35 PM [facility] Specimen Anatomical Collection Method / Collection Time Recei arianne Time (Source) Location / Volume Laterality Blood Peripheral blood Venipuncture / 05/27/2023 1:46 2022 1:48 specimen / Unknown Unknown PM HAND ROLLER PM HAND ROLLER Magalis RODGERS LAB BLOOD ORDERABLES Performing Organization Address City/[facility]/ZIP [facility] Phon e Number [facility] CANCER Unless otherwise noted, [address] all lab tests performed by: Division of Pathology and Laboratory Medicine [address] LDH (05/27/2023 1:46 PM HAND ROLLER)Only the most recent of84 resultswithin the time period is included. athologist Signature LDH 192 135 - 225 05/27/2023 GABRIEL QUINTANILLA U/L 2:36 PM [facility] Specimen Anatomical Collection Method / Collection Time Recei arianne Time (Source) Location / Volume Laterality Blood Peripheral blood Venipuncture / 05/27/2023 1:46 2022 1:49 specimen / Unknown Unknown PM HAND ROLLER PM HAND ROLLER Narrative [facility] - 2:36 PM HAND ROLLER Results greater than 1651 U/L may not be reliable due to matrix effect with extended dilution as it exceeds the nursing student' s recommended limit. Caution should be exercised when interpreting such values and done in conjunction with clinical context. Magalis R[facility] LAB BLOOD ORDERABLES Performing Organization Address City/[facility] Phon e Number [facility] CANCER Unless otherwise noted, [address] all lab tests performed by: Division of Pathology and Laboratory Medicine [address] [place] [address] IgA (05/27/2023 1:46 PM HAND ROLLER)Only the most recent of8 resultswithin the time period is included. P athologist Signature IgA 151.0 85.0 - 05/28/2023 [facility] 499.0 mg/dL 3:18 PM [facility] Specimen Anatomical Collection Method / Collection Time Recei arianne Time (Source) Location / Volume Laterality Blood Peripheral blood Venipuncture / 05/27/2023 1:46 2022 1:49 specimen / Unknown Unknown PM HAND ROLLER PM HAND ROLLER Magalis R[facility]GERS LAB BLOOD ORDERABLES Performing Organization Address [facility] Phon e Number [facility] Unless otherwise noted, [address] all lab tests performed by: Division of Pathology and Laboratory Medicine [address] [place], [place] [address]d IgM (05/27/2023 1:46 PM HAND ROLLER)Only the most recent of8 resultswithin the time period is included. P athologist Signature IgM 94.0 35.0 - 05/28/2023 [facility] 242.0 mg/dL 3:18 PM [facility] Specimen Anatomical Collection Method / Collection Time Recei arianne Time (Source) Location / Volume Laterality Blood Peripheral blood Venipuncture / 05/27/2023 1:46 2022 1:49 specimen / Unknown Unknown PM HAND ROLLER PM HAND ROLLER Magalis R[facility] LAB BLOOD ORDERABLES Performing Organization Address City/State/ZIP Code Phon e Number [facility]ER Unless otherwise noted, [address] all lab tests performed by: Division of Pathology and Laboratory Medicine [address] IgG (05/27/2023 1:46 PM HAND ROLLER)Only the most recent of10 resultswithin the time period is included. athologist Signature IgG 950.0 610.0 - 05/28/2023 [facility] 1,616.0 3:18 PM [facility] mg/dL Specimen Anatomical Collection Method / Collection Time Recei arianne Time (Source) Location / Volume Laterality Blood Peripheral blood Venipuncture / 05/27/2023 1:46 2022 1:49 specimen / Unknown Unknown PM HAND ROLLER PM HAND ROLLER Magalis R[facility] LAB BLOOD ORDERABLES Performing Organization Address City/[facility] Phon e Number [facility] Unless otherwise noted, [address] all lab tests performed by: Division of Pathology and Laboratory Medicine [address] Creatinine (05/27/2023 1:46 PM HAND ROLLER) athologist Signature Creatinine 0.96 0.67 - 1.17 05/27/2023 [facility] mg/dL 2:35 PM [facility] eGFR 95 >=60 05/27/2023 [facility] mL/min/1.73 2:35 PM [facility] sq. m Comment: The eGFRcr is calculated with the 2020 KD-EPI creatinine equation using creatinine, patient's age, and sex for adults 18 years of age and older. Other factors, especially muscle mass, may affect accuracy and need to be considered. According to the Kidney Disease: Improvi ng Global Outcomes (KDIGO) CKD Work Group 2012 Clinical Practice Guideline, chronic kidney disease (CKD) is defined as the abnormalities of kidney structure or fu nction, present for more than 3 months, with implications for health. CKD should be classified by cause, GFR category, and albuminuria category. KDIGO guidelines provide the following GFR categories. Stage / Description / GFR mL/min/1.73 m2 : G1* / Normal or high / >= 90 G2* / Mildly decreased / 60-89 G3a / Mildly to moderately decreased / 4 5-59 G3b / Moderately to severely decreased / 30-44 G4 / Severely decreased / 15-29 G5 / Kidney failure / <15 *In the absence of evidence of kidney da mage, neither G1 nor G2 fulfill criteria for CKD. Specimen Anatomical Collection Method / Collection Time Recei arianne Time (Source) Location / Volume Laterality Blood Peripheral blood Venipuncture / 05/27/2023 1:46 2022 1:48 specimen / Unknown Unknown PM HAND ROLLER PM HAND ROLLER Magalis RODGERS LAB BLOOD ORDERABLES Performing Organization Address City/[facility] Phon e Number [facility] Unless otherwise noted, [address] all lab tests performed by: Division of Pathology and Laboratory Medicine [address] Calcium Level (05/27/2023 1:46 PM HAND ROLLER)Only the most recent of89 resultswithin the time period is included. P athologist Signature Calcium Level 9.7 8.2 - 10.2 05/27/2023 [facility] Total mg/dL 2:35 PM [facility] Specimen Anatomical Collection Method / Collection Time Recei arianne Time (Source) Location / Volume Laterality Blood Peripheral blood Venipuncture / 05/27/2023 1:46 2022 1:48 specimen / Unknown Unknown PM HAND ROLLER PM HAND ROLLER Magalis RODGERS LAB BLOOD ORDERABLES Performing Organization Address [facility] Phon e Number [facility] Unless otherwise noted, [address] all lab tests performed by: Division of Pathology and Laboratory Medicine [address] Albumin Level (05/27/2023 1:46 PM HAND ROLLER)Only the most recent of88 resultswithin the time period is included. P athologist Signature Albumin Level 4.9 3.5 - 5.2 05/27/2023 [facility] gm/dL 2:35 PM [facility] Specimen Anatomical Collection Method / Collection Time Recei arianne Time (Source) Location / Volume Laterality Blood Peripheral blood Venipuncture / 05/27/2023 1:46 2022 1:48 specimen / Unknown Unknown PM HAND ROLLER PM HAND ROLLER Magalis RODGERS LAB BLOOD ORDERABLES Performing Organization Address City/[facility]/ZIP Code Phon e Number [facility] Unless otherwise noted, [address] all lab tests performed by: Division of Pathology and Laboratory Medicine [address] [place] [address] (ABNORMAL) Electrolyte Panel (05/27/2023 1:46 PM HAND ROLLER)Only the most recent of72 resultswithin the time period is included. athologist Signature Sodium Level 145 136 - 145 05/27/2023 [place] [facility] [place] mmol/L 2:35 PM [facility] Potassium 3.9 3.4 - 4.5 05/27/2023 [place] [facility] [place] Level mmol/L 2:35 PM [facility] Chloride 108 (H) 98 - 107 05/27/2023 [facility] [place] mmol/L 2:35 PM [facility] CO2 25 22 - 29 05/27/2023 [facility] [place] mmol/L 2:35 PM [facility] Anion Gap 12 4 - 14 05/27/2023 [facility] mmol/L 2:35 PM [facility] Specimen Anatomical Collection Method / Collection Time Recei arianne Time (Source) Location / Volume Laterality Blood Peripheral blood Venipuncture / 05/27/2023 1:46 2022 1:48 specimen / Unknown Unknown PM HAND ROLLER PM HAND ROLLER Magalis RODGERS LAB BLOOD ORDERABLES Performing Organization Address City/[facility]/ZIP Code Phon e Number [facility] Unless otherwise noted, [address] all lab tests performed by: Division of Pathology and Laboratory Medicine [address] [place] [address] MRI CERVICAL THORACIC LUMBAR SPINE W WO CONTRAST (05/21/2023 9:48 PM CDT) Anatomical Region Laterality Modality Spine, C-spine, T-spine, L-spine Magneti c Resonance Specimen (Source) Anatomical Collection Method Collection Time Re ceived Time Location / / Volume Laterality 05/22/2023 10:02 AM CDT Impressions 05/22/2023 10:05 AM CDT No evidence of leptomeningeal spinal involvement. No acute spinal canal compromise. 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 ACTIONABLE ITEMS/RECOMMENDATIONS: None. Narrative 05/22/2023 10:05 AM CDT FULL RESULT: Examination: MRI CERVICAL THORACIC LUMBA R SPINE W WO CONTRAST on 05/21/2023 9:48 PM. 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 TECHNIQUE: MRI of the cervical, thoracic and lumbosacral spine without and with IV contrast was performed. FINDINGS: SPINE COUNT: No transitional anatomy. POSTTREATMENT FINDINGS: None. NEOPLASTIC FINDINGS: Intradural neoplastic findings: No evide nce of malignancy. No leptomeningeal disease identified. Extradural neoplastic findings: No suspi cious bone lesion. No pathological vertebral compression fracture. No epidural disease. NON-NEOPLASTIC FINDINGS: Alignment: Maintained. Instability: No imaging evidence of inst ability. Degenerative: No significant degenerativ e spinal canal or neural foraminal narrowing. Persisting reversal normal cervical pita osis stable compared to CT neck assessment from 2021. Posterior central disk protrusions ident ified appearing chronic L4-L5 and L5-S1 without neural foramina compromise. Other fractures: No acute non-pathologic al fracture. Visualized spinal cord: Unremarkable. Location of conus medullaris: L1. OTHER PERTINENT POSITIVE AND NEGATIVE FI NDINGS: None. Procedure Note Star Dunlap MD - 05/22/2023Forma tting of this note might be different from the original. FULL RESULT: Examination: MRI CERVICAL THORACIC LUMBA R SPINE W WO CONTRAST on 05/21/2023 9:48 PM. 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 TECHNIQUE: MRI of the cervical, thoracic and lumbosacral spine without and with IV contrast was performed. FINDINGS: SPINE COUNT: No transitional anatomy. POSTTREATMENT FINDINGS: None. NEOPLASTIC FINDINGS: Intradural neoplastic findings: No evide nce of malignancy. No leptomeningeal disease identified. Extradural neoplastic findings: No suspi cious bone lesion. No pathological vertebral compression fracture. No epidural disease. NON-NEOPLASTIC FINDINGS: Alignment: Maintained. Instability: No imaging evidence of inst ability. Degenerative: No significant degenerativ e spinal canal or neural foraminal narrowing. Persisting reversal normal cervical pita osis stable compared to CT neck assessment from 2021. Posterior central disk protrusions ident ified appearing chronic L4-L5 and L5-S1 without neural foramina compromise. Other fractures: No acute non-pathologic al fracture. Visualized spinal cord: Unremarkable. Location of conus medullaris: L1. OTHER PERTINENT POSITIVE AND NEGATIVE FI NDINGS: None. IMPRESSION: No evidence of leptomeningeal spinal inv olvement. No acute spinal canal compromise. 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 ACTIONABLE ITEMS/RECOMMENDATIONS: None. 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 Indications: Indications: diagnostic Anesthesia: Anesthesia: local infiltration Local anesthetic: lidocaine 1% without e pinephrine Anesthetic total (ml): 5 Pre-medications: Pre-medications used?: no IV Fluids: IV fluids administered: no peripheral in travenous hydration Sedation: Patient sedated?: patient not sedated Procedure Details: Preparation: patient was prepped and jimmy ped in usual sterile fashion Patient's position: right lateral decubi tus Needle gauge: 22 Needle type: Quincke needle Needle length (in): 3.5 Number of attempts: 3 or more Opening pressure (cm H2O): 16.5 Closing pressure (cm H2O): 10 Fluid appearance: clear Tubes of fluid: 4 Total volume (ml): 9 Estimated blood loss: none Post-procedure: site cleaned Complications?: no Patient instructed to lie flat for (hour s): 1 hour Sample Disposition: Sample disposition: flow cytometry, cyto logy, chemistry and microbiology Patient Disposition: Disposition: remain in current area (For 15 minutes since chemotherapy was not administered.) Comments: PROCEDURE IN DETAIL: The Windsor protocol was completed by myself and Magalis Morton PA-C. This was placed in the patient's chart p er hospital policy. The patient was correctly identified by name, patien t number and date, both verbally and against the wrist band. Consent for the procedure was obtained p rior to the procedure. Risks of the procedure were discussed including: infection, bleeding, pain and headache. The patient was already in the right lat eral decubitus position upon entering the room. The lumbar area was p repped and draped in a sterile fashion. Betadine solution and sterile drapes were utilized. The L3-L4 area was anesthetized with 1% lidocaine plain solution. A 22 gauge needle was used for the procedure. On the first pass, the CSF was not obtained. The needle was withdrawn and angled upwa rds and bone was contacted. The needle was withdrawn enough to angle rona nwards and bone was contacted. The area was repalpated numerous times and r eaccessed 1-2 times more without success. An additional area (L4-L5) was selected and anesthetized with 1% plain lidocaine solution. The needle was inser ned and bone was contacted. The needle was angled downwards and advanced without CSF. Patient then reported a shooting pain in his right bu ttock and down his leg. The needle was removed and the patient posit ioned with his knees higher to his chest and his head angled towards his est. With the assistance of Magalis Morton PA-C, we were able to adva nce the needle in this space and obtain clear CSF. Opening pressure was 15.6 cm H2O Closing pressure as 10 cm H2O A total of 9.0 cc's was collected in 4 s eparate test tubes. The stylet was reintroduced and the needle was with drawn. Pressure was applied over the site with no sign of bleeding. The p atient tolerated the procedure without any complications. Samples were sent off for cell count, di fferential, cytopathology, flow cytometry for MRD and CAR T cells, and J C virus. Plan The patient was instructed to lie flat w ith only 1 pillow for 15 minutes (no IT chemotherapy administered) and to drink plenty of fluids to help prevent a headache. The patient was instructed to call the c linic and present immediately to the EC should he develop a severe headac he, nausea, vomiting, or fever greater than 100.5 F. The patient's was present during e procedure. Elliott RODGERS PROCEDURE/MINOR SURGICAL ORD ERABLES FC CAR19 ([id number]) Final Report (05/07/2023 3:24 PM CDT)Only the most recent of15 resultswithin the time period is included. Specimen (Source) Anatomical Collection Method Collection Time Re ceived Time Location / / Volume Laterality 05/07/2023 3:24 PM CDT Narrative This result has an attachment that is no t available. Magalis RODGERS MDA HP FLOW CYTOMETRY (HP FC ) Performing Organization Address City/State/ZIP Code Phon e Number [facility] Unless otherwise noted, [address] all lab tests performed by: Division of Pathology and Laboratory Medicine [address] [place] [address] FC CAR19 ([id number]) Collection, Nonblood (05/07/2023 3:24 PM CDT)Only the most recent of5 resultswithin the time period is included. athologist Signature Flow Cytometry Yes [facility] ([facility]) [facility] Specimen Anatomical Collection Method Collection Time Receive d Time (Source) Location / / Volume Laterality CSF 05/07/2023 3:24 PM 3 7:15 CDT PM CDT Magalis RODGERS MDA HP FC NONBLOOD COLLECTIO NS Performing Organization Address City/[facility] Phon e Number [facility] Unless otherwise noted, [address] all lab tests performed by: Division of Pathology and Laboratory Medicine [address] [place] [address] MRD B ALL Collection, Nonblood (05/07/2023 3:24 PM CDT)Only the most recent of6 resultswithin the time period is included. athologist Signature Flow Cytometry Yes [facility] (Received) [facility] Specimen Anatomical Collection Method Collection Time Receive d Time (Source) Location / / Volume Laterality CSF 05/07/2023 3:24 PM 3 7:15 CDT PM CDT Magalis RODGERS MDA HP FC NONBLOOD COLLECTIO NS Performing Organization Address City/[facility]/ZIP Code Phon e Number [facility] Unless otherwise noted, [address] all lab tests performed by: Division of Pathology and Laboratory Medicine [facility] [address] KAILEY Virus Quant PCR, CSF (05/07/2023 3:24 PM CDT) Patholo gist Method Time Signature KAILEY Virus Not Detected Not Detected HI CSF-Viracor copies/mL [facility] Comment: TESTING PERFORMED AT LOW VOLUME ON CSF S PECIMEN FOR JCV, MAY AFFECT RESULTS. Assay Range: 72 copies/mL to 1.00E+08 co pies/mL The limit of quantitation (LOQ) is 72 co pies/mL. KAILEY virus DNA detected below the LOQ will be reported as Detected:<72 copies/mL. This test was developed and its performa nce characteristics determined by [facility]. It has n ot been cleared or approved by the U.S. Food and Drug Administration . Results should be used in conjunction with clinical findings, and should not form the sole basis for a diagnosis or treatment decis ion. Performed At: [facility] [address] [place] [address], [address] [place] [address] Gas Derrick Operator: Lance Wang, PhD [facility] ([facility]) CLIA # [id number] [facility] Interpretation: A = Abnormal, H = H igh, L = Low Specimen Anatomical Collection Method Collection Time Receive d Time (Source) Location / / Volume Laterality CSF 05/07/2023 3:24 PM 3 9:20 CDT AM CDT Magalis RODGERS MICROBIOLOGY - GENERAL ORDER ORTIZ Performing Organization Address City/State/ZIP Code Phon e Number [facility] Unless otherwise noted, [place] [address] [place] all lab tests performed by: Division of Pathology and Laboratory Medicine [address] [place] [address] [place]unction Flow Cytometry Specimen Collection -CSF (05/07/2023 3:24 PM CDT)Only the most recent of21 resultswithin the time period is included. athologist Signature Flow Cytometry Yes [place] [facility] (Received) CANCER CENTER Comment: Test performed by: [facility] Center Flow Cytometry Laboratory [address] [place] [address] Deon Martínez Link [id number] [facility] Specimen Anatomical Collection Method Collection Time Receive d Time (Source) Location / / Volume Laterality CSF 05/07/2023 3:24 PM 7:23 CDT PM CDT Magalis RODGERS MDA HP FC NONBLOOD COLLECTIO NS Performing Organization Address City/State/ZIP Code Phon e Number [facility] Unless otherwise noted, [place], [place] [id number] [place] [address] all lab tests performed by: Division of Pathology and Laboratory Medicine [address] (ABNORMAL) Cell Count w/ Diff CSF (05/07/2023 3:24 PM CDT)Only the most recent of8 resultswithin the time period is included. athologist Signature Type CSF Tap [facility] Comment: When reviewing the cell count a nd differential results, clinicians should consider the length of time between spin al fluid collection and testing and the clinical condition of the patient. Appear CSF CLEAR CLEAR [facility] Comment: When reviewing the cell count a nd differential results, clinicians should consider the length of time between spin al fluid collection and testing and the clinical condition of the patient. Color CSF Colorless Colorless [facility] Comment: When reviewing the cell count a nd differential results, clinicians should consider the length of time between spin al fluid collection and testing and the clinical condition of the patient. WBC CSF 0 0 - 5 /mcL [facility] Comment: When reviewing the cell count a nd differential results, clinicians should consider the length of time between spin al fluid collection and testing and the clinical condition of the patient. RBC CSF 10 (H) 0 - 0 /mcL [facility] Comment: When reviewing the cell count a nd differential results, clinicians should consider the length of time between spin al fluid collection and testing and the clinical condition of the patient. Tot Cells CSF 37 [facility] Comment: When reviewing the cell count a nd differential results, clinicians should consider the length of time between spin al fluid collection and testing and the clinical condition of the patient. Neut CSF 0 0 - 5 % [facility] Comment: When reviewing the cell count a nd differential results, clinicians should consider the length of time between spin al fluid collection and testing and the clinical condition of the patient. Lymph CSF 95 28 - 96 % [facility] Comment: When reviewing the cell count a nd differential results, clinicians should consider the length of time between spin al fluid collection and testing and the clinical condition of the patient. Histiocyte CSF 5 (L) 16 - 56 % [facility] Comment: When reviewing the cell count a nd differential results, clinicians should consider the length of time between spin al fluid collection and testing and the clinical condition of the patient. Microorganisms CSF None Seen None Seen [facility] Comment: When reviewing the cell count a nd differential results, clinicians should consider the length of time between spin al fluid collection and testing and the clinical condition of the patient. Specimen Anatomical Location Collection Method Collection Time Received Time (Source) / Laterality / Volume CSF Lumbar spinal 05/07/2023 3:24 05/07/2023 5:56 cerebrospinal fluid PM CDT PM CDT pathway / Unknown Magalis RODGERS BODY FLUIDS AND STOOLS ORDER ORTIZ Performing Organization Address City/[facility]/ZIP Code Phon e Number [facility] Unless otherwise noted, [address] all lab tests performed by: Division of Pathology and Laboratory Medicine [facility]5 [address] Deras (ABNORMAL) Protein CSF (05/07/2023 3:24 PM CDT)Only the most recent of4 results within the time period is included. athologist Signature Protein CSF 71 (H) 15 - 45 [facility] mg/dL CANCER CENTER Type CSF Tap [facility] Comment: When reviewing the cell count a nd differential results, clinicians should consider the length of time between spin al fluid collection and testing and the clinical condition of the patient. Specimen Anatomical Location Collection Method Collection Time Received Time (Source) / Laterality / Volume CSF Lumbar spinal 05/07/2023 3:24 05/07/2023 5:56 cerebrospinal fluid PM CDT PM CDT pathway / Unknown Magalis RODGERS BODY FLUIDS AND STOOLS ORDER ORTIZ Performing Organization Address City/[facility]/ZIP Code Phon e Number [facility] Unless otherwise noted, [place] [address] CENTER all lab tests performed by: Division of Pathology and Laboratory Medicine [address] Glucose CSF (05/07/2023 3:24 PM CDT)Only the most recent of4 resultswithin the time period is included. P athologist Signature Glucose CSF 55 40 - 70 [facility] mg/dL CANCER CENTER Type CSF Tap [facility] [place] Comment: When reviewing the cell count a nd differential results, clinicians should consider the length of time between spin al fluid collection and testing and the clinical condition of the patient. Specimen Anatomical Location Collection Method Collection Time Received Time (Source) / Laterality / Volume CSF Lumbar spinal 05/07/2023 3:24 05/07/2023 5:56 cerebrospinal fluid PM CDT PM CDT pathway / Unknown Magalis RODGERS BODY FLUIDS AND STOOLS ORDER ORTIZ Performing Organization Address City/State/ZIP Code Phon e Number [facility] Unless otherwise noted, [address] all lab tests performed by: Division of Pathology and Laboratory Medicine [address] [facility] Non-Certified Master Safecracker Interpretation (05/07/2023 3:20 PM CDT)Only the most recent of8 resultswithin the time period is included. Component Value Ref Test Analysis Performed Pathologis t Range Method Time At [facility] Gross 1 Diff Quik; 1 Pap Stain Slides 05/08/20 2 MDA AP Description 2 ml. clear colorless fluid 3 5:05 PM LABS Specimen concentrated by cytocentrifugation technique CDT Major [facility]/benign MDA AP Electron ically Classification 3 5:05 PM LABS renzo d by CDT Clara Houston MD on 05/08/2023 at 5:05 PM Diagnosis Cerebrospinal fluid, lumbar puncture: MDA AP Electronically 3 5:05 PM LABS signed by No malignant cells identified CDT Tori Houston MD on 05/08/2023 at 5:05 PM Retained/Biomark SR: 2 S MDA AP er Testing 3 5:05 PM LABS CDT Informational Some tests reported MDA AP Points here may have been 3 5:05 PM LABS developed and CDT performance characteristics determined by [facility] Pathology and Laboratory Medicine. These tests have not been specifically cleared or approved by the U.S. Food and Drug Administration. Specimen Anatomical Location Collection Method Collection Time Received Time (Source) / Laterality / Volume Fluid sample Lumbar spinal Non-blood 05/07/2023 3:20 05/08/2023 8:52 (specimen) cerebrospinal fluid Collection / PM CDT AM CDT pathway / Unknown Unknown Magalis RODGERS LAB CYTOLOGY ORDERABLES Performing Organization Address City/State/ZIP Code Phon e Number [facility] [place] [address], [address] clonoSEQ-Send out, Peripheral Blood (05/06/2023 10:12 AM CDT)Only the most recent of3 resultswithin the time period is included. Analysis Performed At Patho logist Time Signature Adaptive DISCARDED [facility] clonoSEQ [facility] Comment: Specimen discarded per genetic counselor - duplicate test order. Specimen for clonoSEQ testing was obtain ed, processed and sent out to the [employer] [facility]. Refer to separate Educabil[employer] es Portal for results. Testing Indication MRD-Tracking [facility] Specimen Anatomical Collection Method Collection Time Receive d Time (Source) Location / / Volume Laterality Blood 05/06/2023 10:12 05/07/2023 3:44 AM CDT PM CDT Magalis RODGERS LAB BLOOD ORDERABLES Performing Organization Address City/[facility]/ZIP Code Phon e Number [facility] Unless otherwise noted, [place] [address] CENTER all lab tests performed by: Division of Pathology and Laboratory Medicine Cristine Deras MD t(9;22) BCR/ABL1 Quantitative PCR Collection, Blood (05/06/2023 8:11 AM CDT) Only the most recent of4 resultswithin the time period is included. P athologist Signature Molecular Yes [facility] CANCER CENTER (Received) Specimen Anatomical Collection Method Collection Time Receive d Time (Source) Location / / Volume Laterality Blood 05/06/2023 8:11 AM 3 CDT 11:25 AM CDT Magalis RODGERS MDA MD BLOOD COLLECTIONS Performing Organization Address City/[facility]/ZIP Code Phon e Number [facility] CANCER Unless otherwise noted, [place] [address] CENTER all lab tests performed by: Division of Pathology and Laboratory Medicine [address] [place] [address] .Serum Creatinine (05/06/2023 8:11 AM CDT)Only the most recent of91 results within the time period is included. athologist Signature Creatinine 1.02 0.67 - 1.17 [facility] mg/dL DIAGNOSTIC CENTER Specimen Anatomical Collection Method Collection Time Receive d Time (Source) Location / / Volume Laterality Blood 05/06/2023 8:11 AM 3 8:21 CDT AM CDT Magalis RODGERS LAB BLOOD ORDERABLES Performing Organization Address City/[facility]/ZIP Code Phon e Number [facility] DIAGNOSTIC Unless otherwise noted, [place], [place] [address] [place] all lab tests performed by: Division of Pathology and Laboratory Medicine [address] [place] [address] Clot Expiration Date (05/06/2023 8:11 AM CDT)Only the most recent of50 results within the time period is included. [facility] gist Method Time Signature T & S 05/09/2023 [facility] CANCER CENTER Specimen Anatomical Collection Method Collection Time Receive d Time (Source) Location / / Volume Laterality Blood 05/06/2023 8:11 AM 3 9:33 CDT AM CDT Magalis RODGERS BLOOD BANK TEST ORDERABLES Performing Organization Address City/[facility]/ZIP Code Phon e Number [facility] CANCER Unless otherwise noted, [place] [address] [place] all lab tests performed by: Division of Pathology and Laboratory Medicine [address] [place] [address] Glomerular Filtration Rate (05/06/2023 8:11 AM CDT)Only the most recent of91 resultswithin the time period is included. athologist [facility] eGFR 88 >=60 [facility] mL/min/1.73 DIAGNOSTIC sq. m CENTER Comment: The eGFRcr is calculated with the 2020 KD-EPI creatinine equation using creatinine, patient's age, and sex for adults 18 years of age and older. Other factors, especially muscle mass, may affect accuracy and need to be considered. According to the Kidney Disease: Improvi ng Global Outcomes (KDIGO) CKD Work Group 2012 Clinical Practice Guideline, chronic kidney disease (CKD) is defined as the abnormalities of kidney structure or function, present for more than 3 months, with implications for health. CKD should be c lassified by cause, GFR category, and albuminuria category. KDIGO guidelines provide the following GFR categories Stage Description GFR mL/min/1.73 m2 G1* Normal or high >= 90 G2* Mildly decreased 60-89 G3a Mildly to moderately decreased 45-59 G3b Moderately to severely decreased 30- 44 G4 Severely decreased 15-29 G5 Kidney failure <15 *In the absence of evidence of kidney da mage, neither G1 nor G2 fulfill criteria for CKD. Specimen Anatomical Collection Method Collection Time Receive d Time (Source) Location / / Volume Laterality Blood 05/06/2023 8:11 AM 8:21 CDT AM CDT Magalis RODGERS LAB BLOOD ORDERABLES Performing Organization Address City/[facility]/ZIP Code Phon e Number [facility] DIAGNOSTIC Unless otherwise noted, [place], [place] [address] [place] all lab tests performed by: Division of Pathology and Laboratory Medicine Cristine Deras MD t(9;22) BCR/ABL1 Quantitative PCR Interpretation and Report (05/06/2023 8:11 AM CDT)Only the most recent of6 resultswithin the time period is included. Specimen (Source) Anatomical Collection Method Collection Time Re ceived Time Location / / Volume Laterality 05/06/2023 8:11 AM CDT Narrative This result has an attachment that is no t available. Magalis RODGERS MDA [facility]LEC[facility] DIAGNOSTICS (LEW GARCIA) Performing Organization Address City/[facility] Phon e Number [facility] CANCER Unless otherwise noted, [place] [address] [place] all lab tests performed by: Division of Pathology and Laboratory Medicine Cristine Deras TMP Interpretation Antibody Screen Negative (05/06/2023 8:11 AM CDT)Only the most recent of50 resultswithin the time period is included. [facility] gist Method Time Signature TMP Auto Neg At the HI MD HICKS Interp [facility], CANCER CENTER patient plasma shows no evidence of RBC alloantibodi es. Comment: MD Kate SNEED [id number] Dictated by: MD Kate SNEED [id number] Dictated Date/Time: 05.06.2023 16:06 PM CDT Transcribed Date/Time: 05.06.2023 16:06 PM CDT Electronically Signed By: MD Kate BARRIOS [id number] on 05.06.2023 16:06 PM Specimen Anatomical Collection Method Collection Time Receive d Time (Source) Location / / Volume Laterality Blood 05/06/2023 8:11 AM 3 9:33 CDT AM CDT Magalis RODGERS BLOOD BANK TEST ORDERABLES Performing Organization Address City/State/ZIP Code Phon e Number [facility] CANCER Unless otherwise noted, [address] all lab tests performed by: Division of Pathology and Laboratory Medicine [address] [place] [address] ABORh (05/06/2023 8:11 AM CDT)Only the most recent of50 resultswithin the time period is included. athologist [facility] ABORh. AB POS [facility] Specimen Anatomical Collection Method Collection Time Receive d Time (Source) Location / / Volume Laterality Blood 05/06/2023 8:11 AM 3 9:33 CDT AM CDT Magalis RODGERS BLOOD BANK TEST ORDERABLES Performing Organization Address City/State/ZIP Code Phon e Number [facility] CANCER Unless otherwise noted, [address] all lab tests performed by: Division of Pathology and Laboratory Medicine [address] [place] [address] (ABNORMAL) Differential (05/06/2023 8:11 AM CDT)Only the most recent of77 resultswithin the time period is included. athologist Signature Neutrophil % 59.4 43.2 - 72.7 [facility] % DIAGNOSTIC CENTER Lymphocyte % 24.6 16.8 - 46.2 [facility] % DIAGNOSTIC CENTER Monocyte % 11.5 5.1 - 12.5 [facility] % DIAGNOSTIC CENTER Eosinophil % 3.4 0.4 - 6.3 % [facility] DIAGNOSTIC CENTER Basophil % 0.8 0.2 - 1.4 % [facility] IGRE % 0.3 0.1 - 1.5 % [facility] Comment: IGRE % count includes Metamyelo cytes, Myelocytes, and Promyelocytes. Neutrophil Abs 2.12 1.95 - 7.25 K/uL [facility] Lymphocyte Abs 0.88 (L) 1.01 - 3.24 K/uL [facility] Monocyte Abs 0.41 0.24 - 0.85 K/uL [facility] Eosinophil Abs 0.12 0.02 - 0.50 K/uL [facility] Basophil Abs 0.03 0.02 - 0.09 K/uL [facility] IG Abs 0.01 0.01 - 0.12 K/uL [facility] MD S[facility]un[facility] Specimen Anatomical Collection Method Collection Time Receive d Time (Source) Location / / Volume Laterality Blood 05/06/2023 8:11 AM 3 8:14 CDT AM CDT Magalis RODGERS LAB BLOOD ORDERABLES Performing Organization Address City/State/ZIP Code Phon e Number [facility] DIAGNOSTIC Unless otherwise noted, [place], [place] [address] [place] all lab tests performed by: Division of Pathology and Laboratory Medicine [address] Antibody Screen (05/06/2023 8:11 AM CDT)Only the most recent of50 resultswithin the time period is included. athologist Signature ABSC. Negative ABSC [facility] Specimen Anatomical Collection Method Collection Time Receive d Time (Source) Location / / Volume Laterality Blood 05/06/2023 8:11 AM 3 9:33 CDT AM CDT Magalis RODGERS BLOOD BANK TEST ORDERABLES Performing Organization Address City/[facility]/ZIP Code Phon e Number [facility] CANCER Unless otherwise noted, [place] [address] CENTER all lab tests performed by: Division of Pathology and Laboratory Medicine [address] MRI Brain with and without Contrast (04/23/2023 11:28 AM CDT)Only the most recent of4 resultswithin the time period is included. Anatomical Region Laterality Modality Head Magnetic Resonance Specimen (Source) Anatomical Collection Method Collection Time Re ceived Time Location / / Volume Laterality 04/24/2023 2:38 PM CDT Impressions 04/24/2023 2:55 PM CDT 1. Complex imaging findings with overall improvement of expansion and nodularity of the optic chiasm and with improving signal abnormality extending posteriorly along the optic tracts. Nodularity and en hancement remains of the optic chiasm an d left optic nerve. 2. Progressive cortical enhancement at t he inferior frontal lobes and medial temporal lobes with increasing vasogenic edema. These findings may reflect ongoing treatment related changes although progressive lymphoma not entirely excluded. ACTIONABLE ITEMS/RECOMMENDATIONS: None. Narrative 04/24/2023 2:55 PM CDT FULL RESULT: Examination: MRI BRAIN W WO CONTRAST on 04/23/2023 11:28 AM. 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 TECHNIQUE: MRI of the brain without and with IV contrast was performed. FINDINGS: Intracranial: Optic apparatus: * Improving nodular enhancement of the optic chiasm with nodularity remaining of the left-sided chiasm and thinning of the right sided aspect of the chiasm (image 95/series 31, coronal image 74/series 30) * Persistent enhancement of the prechi asmatic right optic nerve (image 67/series 30). * Significant improvement/resolution o f T2 signal hyperintensity previously seen along the optic tracts extending posteriorly from the hypothalamic region * Images were not tailored for the martha luation of the orbits. In this context left belia-optic enhancement is likely not substantially changed (image 11/series 28) New/increasing enhancement cortical enha ncement is seen along bilateral inferior frontal lobes and mesial temporal lobes with associated increasing vasogenic edema (image 12/is series 27 There is no acute hemorrhage or acute in farct. There is no mass effect or midline shift . The ventricles and extra-axial spaces ar e appropriate for age. Bone: There are no suspicious calvarial or sku ll base lesions. The mastoid air cells are clear. Extracranial: Scattered paranasal sinus mucosal thicke mihaela is present Procedure Note Veronica Hall MD - 04/24/2023Forma tting of this note might be different from the original. FULL RESULT: Examination: MRI BRAIN W WO CONTRAST on 04/23/2023 11:28 AM. 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 TECHNIQUE: MRI of the brain without and with IV contrast was performed. FINDINGS: Intracranial: Optic apparatus: * Improving nodular enhancement of the o ptic chiasm with nodularity remaining of the left-sided chiasm and thinning of the right sided aspect of the chiasm (image 95/series 31, coronal image 74/series 30) * Persistent enhancement of the prechias matic right optic nerve (image 67/series 30). * Significant improvement/resolution of T2 signal hyperintensity previously seen along the optic tracts extending posteriorly from the hypothalamic region * Images were not tailored for the evalu ation of the orbits. In this context left belia-optic enhancement is likely not substantially changed (image 11/series 28) New/increasing enhancement cortical enha ncement is seen along bilateral inferior frontal lobes and mesial temporal lobes with associated increasing vasogenic edema (image 12/is series 27 There is no acute hemorrhage or acute in farct. There is no mass effect or midline shift . The ventricles and extra-axial spaces ar e appropriate for age. Bone: There are no suspicious calvarial or sku ll base lesions. The mastoid air cells are clear. Extracranial: Scattered paranasal sinus mucosal thicke mihaela is present IMPRESSION: 1. Complex imaging findings with overall improvement of expansion and nodularity of the optic chiasm and with improving signal abnormality extending posteriorly along the optic tracts. Nodularity and enhancement remains of the optic chiasm and left opt ic nerve. 2. Progressive cortical enhancement at t he inferior frontal lobes and medial temporal lobes with increasing vasogenic edema. These findings may reflect ongoing treatment related changes although progressive lymphoma not entirely excluded. ACTIONABLE ITEMS/RECOMMENDATIONS: None. Magalis RODGERS IMMadelin MRI ORDERABLES Anion Gap (01/17/2023 3:16 AM CDT)Only the most recent of21 resultswithin the time period is included. P athologist Signature Anion Gap 12 4 - 14 [facility] mEq/L CANCER CENTER Specimen Anatomical Collection Method Collection Time Receive d Time (Source) Location / / Volume Laterality Blood 01/17/2023 3:16 AM 3 3:34 CDT AM CDT Gilbert Ortiz APRN LAB BLOOD ORDERABLES Performing Organization Address City/[facility]/ZIP Code Phon e Number [facility] CANCER Unless otherwise noted, [address] all lab tests performed by: Division of Pathology and Laboratory Medicine [address] Blood Culture (01/17/2023 3:16 AM CDT)Only the most recent of9 resultswithin the time period is included. athologist Signature Final Report No growth [facility] Specimen Anatomical Collection Method Collection Time Receive d Time (Source) Location / / Volume Laterality Blood 01/17/2023 3:16 AM 3 4:12 (PICC-Purple CDT AM CDT Lumen) Narrative [facility] - 3 5:10 AM CDT While on steroids Mely Quinones APRN MICROBIOLOGY - GENERAL ORDER ORTIZ Performing Organization Address City/[facility]/ZIP Code Phon e Number [facility] Unless otherwise noted, [address] all lab tests performed by: Division of Pathology and Laboratory Medicine [address] (ABNORMAL) Aspartate Aminotransferase (01/17/2023 3:16 AM CDT)Only the most recent of51 resultswithin the time period is included. athologist Signature AST 55 (H) <=40 U/L [facility] Specimen Anatomical Collection Method Collection Time Receive d Time (Source) Location / / Volume Laterality Blood 01/17/2023 3:16 AM 3 3:34 CDT AM CDT Gilbert Ortiz APRN LAB BLOOD ORDERABLES Performing Organization Address City/[facility]/ZIP [facility] Phon e Number [facility] Unless otherwise noted, [address] all lab tests performed by: Division of Pathology and Laboratory Medicine [address] Sodium Level (01/17/2023 3:16 AM CDT)Only the most recent of21 resultswithin the time period is included. athologist Signature Sodium Lvl 140 136 - 145 [facility] mEq/L [facility] Specimen Anatomical Collection Method Collection Time Receive d Time (Source) Location / / Volume Laterality Blood 01/17/2023 3:16 AM 3 3:34 CDT AM CDT Gilbert Ortiz APRN LAB BLOOD ORDERABLES Performing Organization Address City/[facility]/ZIP [facility] Phon e Number [facility] CANCER Unless otherwise noted, [address] all lab tests performed by: Division of Pathology and Laboratory Medicine [address] Potassium Level (01/17/2023 3:16 AM CDT)Only the most recent of21 resultswithin the time period is included. athologist Signature Potassium Lvl 4.1 3.5 - 5.1 [facility] mEq/L [facility] Specimen Anatomical Collection Method Collection Time Receive d Time (Source) Location / / Volume Laterality Blood 01/17/2023 3:16 AM 3 3:34 CDT AM CDT Gilbert Ortiz APRN LAB BLOOD ORDERABLES Performing Organization Address City/[facility] Phon e Number [facility] CANCER Unless otherwise noted, [address] all lab tests performed by: Division of Pathology and Laboratory Medicine [address] (ABNORMAL) Chloride Level (01/17/2023 3:16 AM CDT)Only the most recent of21 resultswithin the time period is included. athologist Signature Chloride 108 (H) 98 - 107 [facility] mEq/L [facility] Specimen Anatomical Collection Method Collection Time Receive d Time (Source) Location / / Volume Laterality Blood 01/17/2023 3:16 AM 3 3:34 CDT AM CDT Gilbert Ortiz APRN LAB BLOOD ORDERABLES Performing Organization Address City/[facility] Phon e Number [facility] CANCER Unless otherwise noted, [address] all lab tests performed by: Division of Pathology and Laboratory Medicine [address] (ABNORMAL) Carbon Dioxide Level (01/17/2023 3:16 AM CDT)Only the most recent of 21 resultswithin the time period is included. P athologist Signature CO2 20 (L) 22 - 29 [facility] mEq/L CANCER CENTER Specimen Anatomical Collection Method Collection Time Receive d Time (Source) Location / / Volume Laterality Blood 01/17/2023 3:16 AM 3:34 CDT AM CDT Gilbert Ortiz NII LAB BLOOD ORDERABLES Performing Organization Address City/State/ZIP Code Phon e Number [facility] CANCER Unless otherwise noted, [place] [address] [place] all lab tests performed by: Division of Pathology and Laboratory Medicine [address] [facility] MRI Orbits with and without Contrast (01/17/2023 2:47 AM CDT)Only the most recent of2 resultswithin the time period is included. Anatomical Region Laterality Modality Head Magnetic Resonance Specimen (Source) Anatomical Collection Method Collection Time Re ceived Time Location / / Volume Laterality 01/17/2023 8:35 AM CDT Impressions 01/17/2023 9:32 AM CDT 1. Stable abnormal signal and enhancement of the optic chiasm and bilateral optic nerves and bilateral optic tracts since 01/07/2023. 2. Stable abnormal signal in the bilat eral thalamus and hypothalamus since 01/07/2023. 3. Improvement in suspected radiation related enhancement in the bilateral inferior frontal lobes and right medial temporal lobe since 11/13/2022. ACTIONABLE ITEMS/RECOMMENDATIONS: None. Narrative 01/17/2023 9:32 AM CDT FULL RESULT: Examination: MRI ORBITS W WO CONTRAST on 01/17/2023 2:47 AM. 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 Admitted for right-sided vi matthew loss. Interval methylprednisolone t reatment since prior MRI orbits. INDICATION: Worsening vision. COMPARISON: MRI ORBIT 01/07/2023.. TECHNIQUE: MRI of the orbits without and with intravenous contrast was performed. FINDINGS: Orbits: Mild thickening and enhancement of the l eft optic nerve is noted in the orbit. This is marked on image 20 of series 2 and series 7. The intracranial bilateral optic nerves and optic chiasm and left opti c tract demonstrate enhancement. Enhance ment of the right optic nerve is best seen on image 16 of series 7 There is no significant change since MRI ORBIT 01/07/2023. Bilateral optic tracts FLAIR hyperintensity is marked on image 12 of series 6. Bilateral hypothalamus and bilateral gomez lamus signal abnormality are marked on coronal series 6, stable since 01/07/2023. The globes appear normal. The extraocula r muscles are unremarkable. The lacrimal glands are normal. Brain: The cavernous sinuses are normal. Meckel 's caves are normal Small foci of brain parenchymal enhancem ent in the right greater than left inferior frontal lobe and in the right temporal lobe is likely related to prior radiation and improved since 11/13/2022. The flow voids are maintained. Others: Paranasal sinus mucosal thickening and b ilateral maxillary sinus mucosal thickening is stable since 01/07/2023. An air-fluid level in the right frontal sinus is very small. Right greater than left mastoid effusion is noted. The calvarium and skull base are normal. Procedure Note Marizol Bal MD - 01/17/2023Formatting o f this note might be different from the original. FULL RESULT: Examination: MRI ORBITS W WO CONTRAST on 01/17/2023 2:47 AM. 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 Admitted for right-sided vision loss. Interval methylprednisolone treatment si nce prior MRI orbits. INDICATION: Worsening vision. COMPARISON: MRI ORBIT 01/07/2023.. TECHNIQUE: MRI of the orbits without and with intravenous contrast was performed. FINDINGS: Orbits: Mild thickening and enhancement of the l eft optic nerve is noted in the orbit. This is marked on image 20 of series 2 and series 7. The intracranial bilateral optic nerves and optic chiasm and left optic tract demonstrate enhancement. Enhancement of the right optic nerve is best seen on image 16 of series 7 There is no significant change since MRI ORBIT 01/07/2023. Bilateral optic tracts FLAIR hyperintensity is marked on image 12 of series 6. Bilateral hypothalamus and bilateral gomez lamus signal abnormality are marked on coronal series 6, stable since 01/07/2023. The globes appear normal. The extraocula r muscles are unremarkable. The lacrimal glands are normal. Brain: The cavernous sinuses are normal. Meckel 's caves are normal Small foci of brain parenchymal enhancem ent in the right greater than left inferior frontal lobe and in the right temporal lobe is likely related to prior radiation and improved since 11/13/2022. The flow voids are maintained. Others: Paranasal sinus mucosal thickening and b ilateral maxillary sinus mucosal thickening is stable since 01/07/2023. An air-fluid level in the right frontal sinus is very small. Right greater than left mastoid effusion is noted. The calvarium and skull base are normal. IMPRESSION: 1. Stable abnormal signal and enhancemen t of the optic chiasm and bilateral optic nerves and bilateral optic tracts since 01/07/2023. 2. Stable abnormal signal in the bilater al thalamus and hypothalamus since 01/07/2023. 3. Improvement in suspected radiation re lated enhancement in the bilateral inferior frontal lobes and right medial temporal lobe since 11/13/2022. ACTIONABLE ITEMS/RECOMMENDATIONS: None. Mely Quinones APRN IMG MRI ORDERABLES (ABNORMAL) Partial Thromboplastin Time (01/14/2023 9:37 PM CDT)Only the most recent of24 resultswithin the time period is included. athologist Signature aPTT 22.8 (L) 24.1 - 35.5 [facility]() [facility] Specimen Anatomical Collection Method Collection Time Receive d Time (Source) Location / / Volume Laterality Blood 01/14/2023 9:37 PM 9:59 CDT PM CDT Gilbert Ortiz APRN LAB BLOOD ORDERABLES Performing Organization Address City/State/ZIP Code Phon e Number [facility] CANCER Unless otherwise noted, [place] [address] [place] all lab tests performed by: Division of Pathology and Laboratory Medicine [address] (ABNORMAL) Prothrombin Time (01/14/2023 9:37 PM CDT)Only the most recent of31 resultswithin the time period is included. athologist Signature PT 14.8 (H) 11.9 - 14.5 [facility] INR 1.17 (H) 0.87 - 1.12 [facility] Specimen Anatomical Collection Method Collection Time Receive d Time (Source) Location / / Volume Laterality Blood 01/14/2023 9:37 PM 3 9:59 CDT PM CDT Gilbert Ortiz APRN LAB BLOOD ORDERABLES Performing Organization Address City/[facility]/ZIP Code Phon e Number [facility] CANCER Unless otherwise noted, [address] all lab tests performed by: Division of Pathology and Laboratory Medicine [facility] Fibrinogen (01/14/2023 9:37 PM CDT)Only the most recent of27 resultswithin the time period is included. athologist Signature Fibrinogen 307 214 - 503 [facility] mg/dL CANCER CENTER Specimen Anatomical Collection Method Collection Time Receive d Time (Source) Location / / Volume Laterality Blood 01/14/2023 9:37 PM 3 9:59 CDT PM CDT Gilbert Ortiz APRN LAB BLOOD ORDERABLES Performing Organization Address City/[facility]/ZIP Code Phon e Number [facility] CANCER Unless otherwise noted, [address] all lab tests performed by: Division of Pathology and Laboratory Medicine [facility] (ABNORMAL) D-Dimer (01/14/2023 9:37 PM CDT)Only the most recent of21 results within the time period is included. athologist [facility] D-Dimer 1.72 (H) 0.10 - 0.50 [facility] mcg/ml FEU CANCER CENTER Comment: The cut off value for exclusion of venou s thromboembolism is <0.51 mcg/mL FEUs (fibrinogen equival ent units). Specimen Anatomical Collection Method Collection Time Receive d Time (Source) Location / / Volume Laterality Blood 01/14/2023 9:37 PM 3 9:59 CDT PM CDT Gilbert Ortiz APRN LAB BLOOD ORDERABLES Performing Organization Address City/[facility]/ZIP Code Phon e Number [facility] CANCER Unless otherwise noted, [address] all lab tests performed by: Division of Pathology and Laboratory Medicine [facility] [place] 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 REQ SPINAL PUNCTURE (01/13/2023 1:45 PM CDT) Narrative Mine Kovacs APRN - 01/13/2023 1:45 PM CDT Mine Kovacs APRN 01/13/2023 2:23 PM Lumbar puncture with chemo injection Date/Time: 01/13/2023 1:45 PM Provider Information: Authorized by: Gilmar Gonzalez MD Performed by: Mine Kovacs APRN Drone Operator present: no 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 no t needed Pre-Procedure Note: Consent obtained: yes [place] protocol (time-out) performed: yes 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 Indications: Indication: prophylaxis Anesthesia: Anesthesia: local infiltration and see M AR for details Local anesthetic: lidocaine 1% without e pinephrine and EMLA cream Anesthetic total (ml): 5 Pre-medications: Pre-medications used?: no IV Fluids: IV fluids administered: no Sedation: Patient sedated?: no Procedure Details: Preparation: patient was prepped and jimmy ped in usual sterile fashion Lumbar space: L4-L5 interspace Patient's position: sitting Needle gauge: 22 Needle type: Quincke needle Needle length (in): 3.5 Number of attempts: 2 Fluid appearance: blood-tinged Tubes of fluid: 3 Total volume (ml): 6 Estimated blood loss: minimal Post-procedure: site cleaned and adhesiv e bandage applied Complications: no Patient instructed to lie flat for (hour s): 1 hour Chemo/Biotherapy: Chemo/biotherapy: methotrexate, dexameth asone and see MAR for details Volume of fluid instilled (ml): 5 Sample Disposition: Sample disposition: flow cytometry, chem istry and cytology Patient Disposition: Disposition: remain in inpatient bed Comments: Patient tolerated the procedure well. Th ere were no complications during the procedure and there was minimal blee ding. Patient was assisted to the supine position and instructed to remain flat for a minium of 1 hour. Pertinent lab data: Lab Results Component Value Date WBC 6.0 01/13/2023 HGB 9.1 (L) 01/13/2023 HCT 26.4 (L) 01/13/2023 MCV 94 01/13/2023 PLT 34 (L) 01/13/2023 PT 14.2 01/12/2023 PTT 25.6 01/12/2023 INR 1.11 01/12/2023 Gilmar Gonzalez MD PROCEDURE/MINOR SURGICAL ORD ERABLES Creatine Kinase (01/13/2023 12:56 AM CDT)Only the most recent of4 resultswithin the time period is included. P athologist Signature CK 93 39 - 308 [facility] U/L CANCER CENTER Specimen Anatomical Collection Method Collection Time Receive d Time (Source) Location / / Volume Laterality Blood 01/13/2023 12:56 01/13/2023 1:27 AM CDT AM CDT Gilmar Gonzalez MD LAB BLOOD ORDERABLES Performing Organization Address City/State/[facility] Phon e Number [facility] CANCER Unless otherwise noted, [address] all lab tests performed by: Division of Pathology and Laboratory Medicine Cristine Deras Transfuse RBC:Transfusion Date: 01/12/2023 (01/12/2023 7:29 PM CDT)Only the most recent of7 resultswithin the time period is included. Gilmar Gonzalez MD BLOOD TRANSFUSION ORDERABLES RBC Product Ready for Process Pumper (01/12/2023 3:15 PM CDT)Only the most recent of8 resultswithin the time period is included. Analysis Performed At [facility] PRBC Product B2 Blood GABRIEL GARCIA [facility] Comment: Product is ready for filler picker on January 12, 2023 16:37:32 CDT. Specimen Anatomical Collection Method Collection Time Receive d Time (Source) Location / / Volume Laterality Blood 01/12/2023 3:15 PM 3:15 CDT PM CDT Gilmar Gonzalez MD BLOOD BANK PRODUCT ORDERABLE S Performing Organization Address City/State/[facility] Phon e Number [facility] CANCER Unless otherwise noted, [address] all lab tests performed by: Division of Pathology and Laboratory Medicine Cristine Deras Prepare RBC:1943, 1 Units (01/12/2023 3:15 PM CDT)Only the most recent of9 resultswithin the time period is included. athologist [facility] PRBC Product 1 [facility] Comment: Red Blood Cells Available - Ord er Form 03 when ready for product issue. Unit Number [id number] [facility] Product Code [id number] [place] [facility] Unit Expiration [id number] HI [facility] Unit Blood Type 7300 [facility] Product Code Text RBCIRLR CPD AS1 500mL [facility] Crossmatch Expiration Date [id number] [facility] Unit Irradiated IRRADIATED HI MD [facility] Dispense Status ISSUED [facility] Unit Blood Type B Positive HI MD S[facility] Product Process Pumper Location .BPAM [facility] Comment: Specimen Anatomical Collection Method Collection Time Receive d Time (Source) Location / / Volume Laterality Blood 01/12/2023 3:15 PM 3:15 CDT PM CDT Gilmar Gonzalez MD BLOOD BANK PRODUCT ORDERABLE S Performing Organization Address City/State/ZIP Code Phon e Number [facility] CANCER Unless otherwise noted, [address] all lab tests performed by: Division of Pathology and Laboratory Medicine [facility] TMP Interpretation Crossmatch (01/12/2023 4:27 AM CDT)Only the most recent of6 resultswithin the time period is included. [facility] Method Time Signature TMP XM Interp RBC units HI crossmatched for [facility] CANCER [facility] acceptable. Comment: MD Kate VENTURA Dictated by: MD Kate VENTURA Dictated Date/Time: 01.13.2023 8:34 AM C DT Transcribed Date/Time: 01.13.2023 8:34 AM CDT Electronically Signed By: MD Kate VENTURA on 01.13.2023 8:34 AM C Specimen Anatomical Collection Method Collection Time Receive d Time (Source) Location / / Volume Laterality Blood 01/12/2023 4:27 AM 3 CDT 6:23 AM CDT Marely Wright APRN BLOOD BANK TEST ORDERABLES Performing Organization Address City/[facility]/ZIP Code Phon e Number [facility] CANCER Unless otherwise noted, [place] [address] [place] all lab tests performed by: Division of Pathology and Laboratory Medicine [facility] Adenovirus Quant, Plasma (01/11/2023 3:29 AM CDT)Only the most recent of2 resultswithin the time period is included. [facility] Method Time Signature ADV Not Detected Not Detected HI Plasma-Viraco copies/mL [facility] Comment: Assay Range: 190 copies/mL to 1.00E+10 c opies/mL The limit of quantitation (LOQ) is 190 c opies/mL. Adenovirus DNA detected below the LOQ will be reported as Detected:<190 copies/mL. This test was developed and its performa nce characteristics determined by [facility]. It has n ot been cleared or approved by the U.S. Food and Drug Administration . Results should be used in conjunction with clinical findings, and should not form the sole basis for a diagnosis or treatment decis ion. Performed At: [facility] [address] [place] [address] [place]er: Lance Wang Ph.D., B CLD (ABB) CLIA#: [id number] Phone: Specimen Anatomical Collection Method Collection Time Receive d Time (Source) Location / / Volume Laterality Blood 01/11/2023 3:29 AM 3 CDT 10:56 AM CDT Deann RODGERS MICROBIOLOGY - GENERAL ORDER ORTIZ Performing Organization Address City/State/ZIP Code Phon e Number [facility] CANCER Unless otherwise noted, [place] [id number] [place] all lab tests performed by: Division of Pathology and Laboratory Medicine [address] Transfuse platelets:Transfusion Date: 01/10/2023 (01/10/2023 4:31 PM CDT)Only the most recent of11 resultswithin the time period is included. Lizette Harmon APRN BLOOD TRANSFUSION ORDERABLES TMP Exception (01/10/2023 3:27 PM CDT)Only the most recent of3 resultswithin the time period is included. Component Value Ref Test Analysis Performed At [facility] gist Range Method Time Signature TMP Exception Patient AB Pos HI Interp transfused with O SOCORRO Pos platelets. CANCER This is due to CENTER temporary unavailability of ABO compatible platelets Comment: MD Kate SALDANA [id number] Dictated by: MD Kate SALDANA Dictated Date/Time: 01.11.2023 7:51 AM C DT Transcribed Date/Time: 01.11.2023 7:51 AM CDT Electronically Signed By: MD Kate SALDANA on 01.11.2023 7:51 AM C Specimen Anatomical Collection Method Collection Time Receive d Time (Source) Location / / Volume Laterality Blood 01/10/2023 3:27 PM 3:27 CDT PM CDT Gilmar Gonzalez MD BLOOD BANK TEST ORDERABLES Performing Organization Address City/State/ZIP Code Phon e Number [facility] CANCER Unless otherwise noted, [address] all lab tests performed by: Division of Pathology and Laboratory Medicine [address] PLT Product Ready for Process Pumper (01/10/2023 6:15 AM CDT)Only the most recent of11 resultswithin the time period is included. Analysis Performed At [facility] logist Time Signature PLT Product B2 Blood GABRIEL GARCIA Ready for [facility] Comment: Product is ready for filler picker on January 10, 2023 14:55:04 CDT. Specimen Anatomical Collection Method Collection Time Receive d Time (Source) Location / / Volume Laterality Blood 01/10/2023 6:15 AM 6:16 CDT AM CDT Lizette Harmon APRN BLOOD BANK PRODUCT ORDERABLE S Performing Organization Address City/State/ZIP Code Phon e Number [facility] CANCER Unless otherwise noted, [address] all lab tests performed by: Division of Pathology and Laboratory Medicine [facility] Daleflor Deras Prepare platelets:Transfusion Date: 01/10/2023; Transfusion Indications: Actively Bleeding; g19, 1 Units (01/10/2023 6:15 AM CDT)Only the most recent of13 results within the time period is included. athologist Signature PLT Product Approved [facility] Comment: Platelet order has been approve d. Order Form 3 when ready for product issue. Expect 2 hours for platelet concentratio n. Unit Number [id number] [facility] Product Code [id number] [facility] Unit Expiration [id number] HI [facility] Unit Blood Type 5100 [facility] Product Code Text PLATELET Aph IR LR [place] bag 2 [facility] Unit Irradiated IRRADIATED [facility] Dispense Status ISSUED [facility] Unit Blood Type O Positive [facility] Product Process Pumper Location .BPAM [facility] Comment: Specimen Anatomical Collection Method Collection Time Receive d Time (Source) Location / / Volume Laterality Blood 01/10/2023 6:15 AM 6:16 CDT AM CDT Lizette Harmon APRN BLOOD BANK PRODUCT ORDERABLE S Performing Organization Address City/State/ZIP Code Phon e Number [facility] CANCER Unless otherwise noted, [address] all lab tests performed by: Division of Pathology and Laboratory Medicine [facility] Lauriflor Deras Differential Cancel (01/07/2023 5:03 AM CDT)Only the most recent of10 results within the time period is included. athologist Signature Diff Cancelled See Note [facility] Comment: Due to low WBC, the differentia l will not be performed and it is not possible to calculate ANC. Specimen Anatomical Collection Method Collection Time Receive d Time (Source) Location / / Volume Laterality Blood 01/07/2023 5:03 AM 3 5:14 CDT AM CDT Nicole Ortiz APRN LAB BLOOD ORDERABLES Performing Organization Address City/[facility]/ZIP Code Phon e Number [facility] CANCER Unless otherwise noted, [address] all lab tests performed by: Division of Pathology and Laboratory Medicine Cristine Garrisoncomflor Deras Urinalysis Microscopic Exam (01/06/2023 2:50 PM CDT)Only the most recent of3 resultswithin the time period is included. athologist Signature UA WBC NOT SEEN 0 - 2 /HPF [facility] Comment: Some reporting parameters within the Uri nalysis test have changed due to the implementation of new instrumentation in the [facility], allowing greater sensitivity of measurement. Urinalysis results rep orted by the [facility] using existing instrumentation, as well as Urinalysis t esting performed manually or by backup methodology at the [facility] will remain relatively unchanged. New reporting parameters and units will not be reported for all campuses. UA RBC NOT SEEN 0 - 2 /HPF [facility] UA Mucous TRACE Not Seen-Trace /HPF HI MD [facility] UA Bacteria NOT SEEN NOT SEEN /HPF [facility] UA Squam Epi NOT SEEN None-Occasional /HPF [facility] Specimen Anatomical Collection Method Collection Time Receive d Time (Source) Location / / Volume Laterality Urine 01/06/2023 2:50 PM 3 2:58 CDT PM CDT Nicole Ortiz APRN LAB BLOOD ORDERABLES Performing Organization Address City/[facility]/ZIP Code Phon e Number [facility] CANCER Unless otherwise noted, [address] all lab tests performed by: Division of Pathology and Laboratory Medicine [address] (ABNORMAL) Urinalysis w/Microscopic if Indicated (01/06/2023 2:50 PM CDT)Only the most recent of4 resultswithin the time period is included. P athologist Signature UA Color Straw [facility] UA Appear Clear Clear [facility] UA Glucose NEG NEG mg/dL [facility]A Bili NEG NEG [facility] UA Ketones NEG NEG mg/dL [facility] UA Spec Grav 1.016 1.003 - HI MD 1.035 [facility] UA Blood NEG NEG [facility] UA pH 6.5 5.0 - 9.0 [facility] UA Protein 10 (A) NEG mg/dL [facility] UA Urobilinogen NEG NEG [facility] UA Nitrite NEG NEG [facility] UA Leuk Est NEG NEG [facility] Specimen Anatomical Collection Method Collection Time Receive d Time (Source) Location / / Volume Laterality Urine 01/06/2023 2:50 PM 3 2:58 CDT PM CDT Nicole Ortiz APRN URINE ORDERABLES Performing Organization Address City/State/ZIP Code Phon e Number [facility] CANCER Unless otherwise noted, [address] all lab tests performed by: Division of Pathology and Laboratory Medicine Cristine Garrisoncomflor Deras MRSA Screening Culture (01/06/2023 12:31 PM CDT) Component Value Ref Test Analysis Performed At Patholo gist Range Method Time Signature Final Report No Methicillin [facility] Staphylococcus CANCER aureus isolated. CENTER Specimen Anatomical Collection Method Collection Time Receive d Time (Source) Location / / Volume Laterality Nasal 01/06/2023 12:31 01/06/2023 2:49 PM CDT PM CDT Narrative [facility] - 3 9:18 AM CDT Testing is performed using PBP2a antigen detection and cefoxitin screening on isolated S. aureus colonies. This method ology may not detect uncommon mechanisms of methicillin-resistance in S. aureus. Nicole Ortiz APRN MICROBIOLOGY - GENERAL ORDER ORTIZ Performing Organization Address City/State/ZIP Code Phon e Number [facility] CANCER Unless otherwise noted, [address] all lab tests performed by: Division of Pathology and Laboratory Medicine [place]ine [place] HSV/VZV DNA Detection (01/06/2023 11:22 AM CDT)Only the most recent of2 results within the time period is included. athologist Signature HSV/VZV R Eye [facility] HSV-1 DNA Negative Negative [facility] HSV-2 DNA Negative Negative [facility] VZV DNA Negative Negative [facility] Comment: HSV 1+2/VZV DNA is a nucleic acid amplif ication test (NAAT) intended for the qualitative detection and differentiation of herpes simplex virus type 1, herpes simplex virus type 2, and varicella-zoster v irus DNA isolated and purified from cuta neous or mucocutaneous lesions from symptomatic [facility]. Reference Range: DNA Negative When invalid results are obtained, a new specimen should be collected for repeat testing if clinically indicated. Specimen Anatomical Collection Method Collection Time Receive d Time (Source) Location / / Volume Laterality Lesion 01/06/2023 11:22 01/06/2023 AM CDT 12:43 PM CDT Narrative [facility] - 3 1:28 PM CDT Confirmed with Dr. Shaw Beard, for HSV/VZ test not C EYE 01/06/2023 12:44:15 PM CDT IG R EYE corneal scraping Shaw Beard OD MICROBIOLOGY - GENERAL ORDER ORTIZ Performing Organization Address City/State/ZIP Code Phon e Number [facility] CANCER Unless otherwise noted, [place] [address] [place] all lab tests performed by: Division of Pathology and Laboratory Medicine [address] [facility] External Photography - OD - Right Eye (01/06/2023 10:48 AM CDT) Specimen (Source) Anatomical Location Collection Method / Collectio n Time Received Time / Laterality Volume Narrative Lillie Walls MD - 01/09/2023 12:00 AM CDT This result has an attachment that is no t available. Large central corneal abrasion looks sma ller compare to prior Shaw Beard OD OPHTHALMOLOGY IMG ORDERABLES (ABNORMAL) Respiratory Multiplex PCR Panel, Nasopharyngeal Swab (01/05/2023 1:02 PM CDT)Only the most recent of2 resultswithin the time period is included. Patholo gist Method Time Signature Adenovirus Detected Not HI MD (A) Detected [facility] Coronavirus 229E Not Not [place] MD Detected Detected [facility] Coronavirus HKU1 Not Not [place] MD Detected Detected [facility] Coronavirus NL63 Not Not [place] MD Detected Detected [facility] Coronavirus OC43 Not Not [place] MD Detected Detected [facility] COVID19 Not Not [place] MD (SARS-CoV-2) Detected Detected [facility] Human Not Not [place] MD Metapneumovirus Detected Detected [facility] Human Detected Not [place] MD Rhinovirus/Enterov (A) Detected [facility] Influenza A Not Not [place] MD Detected Detected [facility] Influenza A H1 Not Not [place] MD Detected Detected [facility] Influenza A H1 Not Not [place] MD 2009 Detected Detected [facility] Influenza A H3 Not Not [place] MD Detected Detected [facility] Influenza B Not Not [place] MD Detected Detected [facility] Parainfluenza 1 Not Not [place] MD Detected Detected [facility] Parainfluenza 2 Not Not [place] MD Detected Detected [facility] Parainfluenza 3 Not Not [place] MD Detected Detected [facility] Parainfluenza 4 Not Not [place] MD Detected Detected [facility] Respiratory Not Not [place] MD Syncytial Virus Detected Detected [facility] Bordetella Not Not [place] MD Parapertussis Detected Detected [facility] Bordetella Not Not [place] MD pertussis Detected Detected [facility] Chlamydiophila Not Not [place] MD pneumoniae Detected Detected [facility] Mycoplasma Not Not [place] MD pneumoniae Detected Detected [facility] Specimen (Source) Anatomical Collection Method Collection Time Re ceived Time Location / / Volume Laterality Nasopharyngeal Swab 01/05/2023 1:02 01/05 PM CDT 1:22 PM CDT Narrative [place] MD [facility] - 3 2:22 PM CDT Has patient had a positive for COVID-19 result in the last 3 months?->No The [employer]View[employer] RP2.1 is a real-time, nested multiplexed polymerase chain reaction test designed to simultaneously identify nucleic acids from 22 different viruses and bacteria associated with respiratory tract infect ion, including SARS-CoV-2, from a single nasopharyngeal swab (SCIENCE TECHNICIAN) specimen obtained from individuals suspected of respiratory tract infections, including COVID-19. Results must be interpreted within the c ontext of all relevant clinical and laboratory findings and should not form the sole basis for a diagnosis or treatment decision. Positive results do not rule out coninfection with other organisms. Nega tive results in the setting of a respiratory illness may be due to infection with pathogens that are not detected by this panel, or a lower respiratory tract infection that may not be detected by an SCIENCE TECHNICIAN specimen. Internal controls are used to monitor al l stages of the test process and assess for possible amplification inhibitors. If inhibition is detected, testing is repeated and if inhibition is confirmed the s pecimen is resulted as "Invalid". When a n "Invalid" result occurs, it is recommended to wait 3 days before submitting a new specimen for testing if clinically indicated. This assay has been approved by the FDA for use in laboratories that have been CLIA-certified to perform moderate-complexity and high-complexity tests. The [facility], CLIA Accreditation #[id number] and CAP Accreditation #[id number], verified the per formance characteristics of this assay. [facility] performs the assay using the [employer]. John Wills MD MICROBIOLOGY - GENERAL ORDER ORTIZ Performing Organization Address City/State/ZIP Code Phon e Number [facility] Unless otherwise noted, [place], [place] [id number] [place] [address] all lab tests performed by: Division of Pathology and Laboratory Medicine [facility] [place] CT Orbits Sella Posterior Fossa Ear with Contrast (01/05/2023 2:36 AM CDT) Anatomical Region Laterality Modality Head Computed Tomography Specimen (Source) Anatomical Collection Method Collection Time Re ceived Time Location / / Volume Laterality 01/05/2023 3:23 AM CDT Impressions 01/05/2023 7:59 AM CDT Right periorbital soft tissue swelling may represent of preseptal cellulitis. This is a preliminary resident report an d has not been reviewed by an attending radiologist. ATTENDING' S ADDITION: Pansinusitis is r elatively unchanged without bony erosion or intraorbital subperiosteal abscess and bilateral cavernous sinus and orbital apex are unremarkable. I personally reviewed these image(s) tamaradavid camp with the resident's/fellow's interpretations, certify that if a procedure was performed I was physically present, and agree with the final report. 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 FINDINGS: ORBITS: Right preseptal soft tissue swel ling. No post septal extension. INTRACRANIAL: The brain parenchyma is un remarkable. There is no evidence for abnormal enhancement. The mcfarland-white matter differentiation is maintained. SINUSES: Extensive opacification of the paranasal sinuses. 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 FINDINGS: ORBITS: Right preseptal soft tissue swel ling. No post septal extension. INTRACRANIAL: The brain parenchyma is un remarkable. There is no evidence for abnormal enhancement. The mcfarland-white matter differentiation is maintained. SINUSES: Extensive opacification of the paranasal sinuses. IMPRESSION: Right periorbital soft tissue swelling m ay represent of preseptal cellulitis. This is a preliminary resident report an d has not been reviewed by an attending radiologist. ATTENDING' S ADDITION: Pansinusitis is r elatively unchanged without bony erosion or intraorbital subperiosteal abscess and bilateral cavernous sinus and orbital apex are unremarkable. I personally reviewed these image(s) tamara ng with the resident's/fellow's interpretations, certify that if a procedure was performed I was physically present, and agree with the final report. Tiffany Quintero MD IMG CT ORDERABLES (ABNORMAL) Glucose Level (01/05/2023 1:14 AM CDT)Only the most recent of31 resultswithin the time period is included. P athologist Signature Glucose Level 131 (H) 70 - 99 [place] MD [place] mg/dL [facility] Comment: Effective 02/13/16, the glucose reference intervals have been updated based on [place] [employer] guidelines (Standards of Medical Care in Diabetes 2016. Diabetes Care 2016; 39: S13-S22). Fasting blood glucose: Normal: 70-99 mg/dL Impaired fasting glucose (increased risk for diabetes or pre-diabetes): 100- 125 mg/dL Diabetes mellitus: >/=126 mg/dL Random blood glucose: Normal: 70-199 mg/dL Note: Random glucose >100 mg/dL is assoc iated with increased risk for diabetes Specimen Anatomical Collection Method Collection Time Receive d Time (Source) Location / / Volume Laterality Blood 01/05/2023 1:14 AM 3 1:31 CDT AM CDT Tiffany Quintero MD LAB BLOOD ORDERABLES Performing Organization Address City/[facility] Phon e Number [facility] Unless otherwise noted, [address] all lab tests performed by: Division of Pathology and Laboratory Medicine [address] [place] [address] FC MRD B ALL Limited Interpretation and Report (12/31/2022 2:42 PM CDT)Only the most recent of2 resultswithin the time period is included. Specimen Anatomical Collection Method Collection Time Receive d Time (Source) Location / / Volume Laterality 12/31/2022 2:42 PM 3 4:53 CDT PM CDT Narrative This result has an attachment that is no t available. Abelardo Chopra APRN [facility] HP FLOW CYTOMETRY (HP FC ) Performing Organization Address [facility] Phon e Number [facility] Unless otherwise noted, [address] all lab tests performed by: Division of Pathology and Laboratory Medicine [address] [place] [address] [place] CHEMOTX ADMN 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 REQ SPINAL PUNCTURE (12/31/2022 2:40 PM CDT) Narrative Abdias Epperson APRN - 12/31/2022 2:40 PM C DT Abdias Epperson APRN 01/05/2023 7:23 PM Lumbar puncture with chemo injection Date/Time: 12/31/2022 2:40 PM Provider Information: Authorized by: Everton Jackson APRN Performed by: Abdias Epperson APRN Drone Operator present: yes Drone Operator: Marichuy Peraza APRN Pre-Procedure Note: Consent obtained: yes Windsor protocol (time-out) performed: yes Patient Diagnosis: Pre-procedure diagnosis: B-ALL with 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 disease Post-procedure diagnosis: unchanged Indications: Indication: treatment Anesthesia: Anesthesia: local infiltration and see M AR for details Local anesthetic: lidocaine 1% without e pinephrine and EMLA cream Anesthetic total (ml): 3 Pre-medications: Pre-medications used?: no IV Fluids: IV fluids administered: no Sedation: Patient sedated?: no Procedure Details: Preparation: patient was prepped and jimmy ped in usual sterile fashion Lumbar space: L3-L4 interspace Patient's position: sitting Needle gauge: 22 Needle type: Quincke needle Needle length (in): 3.5 Number of attempts: 3 or more Fluid appearance: blood-tinged then marcie ring and cloudy Tubes of fluid: 3 Total volume (ml): 7 Estimated blood loss: minimal Post-procedure: site cleaned and adhesiv e bandage applied Complications: no Patient instructed to lie flat for (hour s): 1 hour Chemo/Biotherapy: Chemo/biotherapy: cytarabine, dexamethas one and see MAR for details Volume of fluid instilled (ml): 5 Sample Disposition: Sample disposition: flow cytometry, cyto logy and chemistry Patient Disposition: Disposition: remain in current area Comments: The patient was correctly identified by name, and medical record number. The preprocedure verification, U niversal protocol and chemotherapy was verified by myself and Marichuy de los santos BLIND SLAT STAPLING MACHINE OPERATOR. Consent was obtained. Mr. Duvall refused Versed prior to the p rocedure. The patient was assisted to the sitting position, the L3 - S1 was identified, prepped and draped and L3-L4 anesthetized with lidocaine 1% subcutaneously. Marichuy attempted first, saw fresh blood, needle with drawn and re-angled upward, hitting bone. Then I felt the L3-L4 inte rspace; found the spot slightly away from (~3mm) towards the right side. On first pass, blood tinged, then clearing, cloudy cerebrospinal fluid was obtained, about 7 mls of fluid was drained and set aside for labs, then Cytarabine 100 mg/ Dexamethasone in 5 mls of preservative free normal patrick ine for intrathecal injection was slowly instilled over 3-5 minutes, the s tylet was reintroduced and the needle was removed. There were no compli cations, the patient did not report any pain. Pressure was applied to the site until hemostasis was obtained, then a Band-Aid was applied. T he patient was assisted to the supine position and was instructed to re main flat with 1 pillow for at least 1 hour and to drink plenty of flui ds to help prevent a headache. The patient was instructed to call the c linic and present immediately to the EC should he develop a severe headac he, nausea, vomiting, or fever greater than 100.5 F. The spinal fluid was sent to the lab for cell count, differential, Flowcytometry and pathology. Everton Jackson CLOTH BLEACHING RANGE BACK TENDER PROCEDURE/MINOR SURGICAL ORD ERABLES POC pH Urine (12/29/2022 9:25 AM CDT)Only the most recent of9 resultswithin the time period is included. athologist Signature POC U pH 8.0 5.0 - 9.0 POC [facility] Comment: Method description: The pH indicator str ips principle is based on double indicator dyes covalently bound to the reagent paper. The paper is impregnated with an acid indicator and a base indicator. The c olor change of the paper varies with the pH of the urine in which it is immersed. Performing Lab MDA [facility] POC TELCO R Comment: [facility], [address] [place] [address], [place] [address]; Lab Direct or: Shraddha Polanco MD; Waived Point of Care Testing - Niurka Kenny MD Specimen Anatomical Collection Method Collection Time Receive d Time (Source) Location / / Volume Laterality Urine 12/29/2022 9:25 AM 9:25 CDT AM CDT Traci Desai MD POCT ORDERABLES - DEVICE Performing Organization Address City/State/ZIP Code Phon e Number POC [facility] Unless otherwise noted, [place] [address] lab tests performed by: Division of Pathology and Laboratory Medicine [address] [place] [address] Methotrexate Level (12/29/2022 9:17 AM CDT) athologist Signature MTX Random 0.04 mcmol/L [facility] Comment: No reference ranges and critical values are established for random levels; please refer to reference ranges for timed levels provided: MTX 24h: <10 mcmol/L MTX 48h: <1 mcmol/L MTX 72h: <0.2 mcmol/L Results should be interpreted in conjunc tion with clinical findings. Methotrexate levels are unreliable for s pecimens collected within 48 hours following Glucarpidase (Voraxaze) administration as it can result in an overestimation of methotrexate levels due to interference of inactive metabolite with immunoassay. Analytical Method:Immunoassay Platform Method:Ford c502 MTX Random Dose Time see note [facility] [place] Comment: Level, date, and time of previous dose i s not available for this sample. The date reported is e sample collection date. MTX Random Dose Date 12/29/2022 [place] MD XOCHITL [facility] Specimen Anatomical Collection Method Collection Time Receive d Time (Source) Location / / Volume Laterality Blood 12/29/2022 9:17 AM 3 9:48 CDT AM CDT Narrative [facility] - 3 10:25 AM CDT Drawing random methotrexate level to fac ilitate patient discharge today Traci Desai MD LAB BLOOD ORDERABLES Performing Organization Address City/[facility] Phon e Number [facility] Unless otherwise noted, [address] all lab tests performed by: Division of Pathology and Laboratory Medicine [facility] [place] MTX 24 HR Post-Infusion (12/28/2022 9:27 PM CDT) P athologist Signature MTX 24Hr 0.14 <=9.99 [facility] Comment: Methotrexate levels are unreliable for s pecimens collected within 48 hours following Glucarpidase (Voraxaze) administration as it can result in an overestimation of methotrexate levels due to interference of inactive metabolite with immunoassay. Analytical Method:Immunoassay Platform Method:Ford c502 Methotrexate 24HR Dose Date 12/26/2022 U T [facility] Methotrexate 24HR Dose Time 2258 [facility] Specimen Anatomical Collection Method Collection Time Receive d Time (Source) Location / / Volume Laterality Blood 12/28/2022 9:27 PM 3 9:33 CDT PM CDT Traci Desai MD LAB BLOOD ORDERABLES Performing Organization Address City/State/[facility] Phon e Number [facility] Unless otherwise noted, [address] all lab tests performed by: Division of Pathology and Laboratory Medicine [address] MTX Zero Hour Level (12/27/2022 10:01 PM CDT) P athologist Signature MTX 0 Hr Result 10.53 mcmol/L [facility] Comment: No reference ranges and critical values are established for Zero hr levels; please refer to reference ranges for timed levels provided: MTX 24h: <10 mcmol/L MTX 48h: <1 mcmol/L MTX 72h: <0.2 mcmol/L Results should be interpreted in conjunc tion with clinical findings. Methotrexate levels are unreliable for s pecimens collected within 48 hours following Glucarpidase (Voraxaze) administration as it can result in an overestimation of methotrexate levels due to interference of inactive metabolite with immunoassay. Analytical Method:Immunoassay Platform Method:Ford c502 MTX 0 Hr Dose Date 12/27/2022 HI MD [facility] MTX 0 Hr Dose Time see note [place] MD [facility] Comment: Level, date, and time of previous dose i s not available for this sample. The date reported is sample collection date. Specimen Anatomical Collection Method Collection Time Receive d Time (Source) Location / / Volume Laterality Blood 12/27/2022 10:01 12/27/2022 PM CDT 10:50 PM CDT Traci Desai MD LAB BLOOD ORDERABLES Performing Organization Address City/State/ZIP Code Phon e Number [facility] Unless otherwise noted, [address] all lab tests performed by: Division of Pathology and Laboratory Medicine [address] [place] [address] Tip Verification Central Vascular Access Device (12/26/2022 2:55 PM CDT) Narrative Ruthy, Fabricio Cordova RN - 12/26/2022 2:55 PM CDT Fabricio Bliss RN 01/29/2023 7:04 PM Central Vascular Access Device Tip Verif ication Performed by: Fabricio Bliss RN Authorized by: Traci Desai MD CVAD Properties Date device placed: 12/26/2022 Placed by: FABRICIO BLISS RN Device placement location: [facility] Catheter Type: PICC Catheter lumen: Double lumen Vein location: Basilic Laterality: Left Tip Verification Properties Diagnostic image available: Chest xray Written diagnostic report available: Yes Tip location per report: Superior vena cava Tip in good position and cleared for inf usion Traci Desai MD IV THERAPY ORDERABLES XR Chest 2 View Post Implant (12/26/2022 2:07 PM CDT) Anatomical Region Laterality Modality Chest Digital Radiography Specimen (Source) Anatomical Collection Method Collection Time Re ceived Time Location / / Volume Laterality 12/26/2022 2:09 PM CDT Impressions 12/26/2022 2:09 PM CDT FINDINGS and IMPRESSION: 1. The cardiomediastinal silhouette is not enlarged. 2. There is no pneumothorax, significa nt pleural effusion or focal consolidation. 3. No acute or suspicious osseous find ings are identified. 4. Left PICC tip SVC. Narrative 12/26/2022 2:09 PM CDT FULL RESULT: Examination: XR CHEST 2 VW POST IMPLANT, 12/26/2022 2:07 PM Clinical History: Acute lymphoblastic le ukemia Indication: Confirm PICC placement Comparison: 10/05/2022 Technique: Posteroanterior, lateral and dual-energy radiographs of the chest. Procedure Note Elijah Ro MD - 12/26/2022 FULL RESULT: Examination: XR CHEST 2 VW POST IMPLANT, 12/26/2022 2:07 PM Clinical History: Acute lymphoblastic le ukemia Indication: Confirm PICC placement Comparison: 10/05/2022 Technique: Posteroanterior, lateral and dual-energy radiographs of the chest. IMPRESSION: FINDINGS and IMPRESSION: 1. The cardiomediastinal silhouette is n ot enlarged. 2. There is no pneumothorax, significant pleural effusion or focal consolidation. 3. No acute or suspicious osseous findin gs are identified. 4. Left PICC tip SVC. Traci Desai MD IMG DIAGNOSTIC IMAGING ORDER ORTIZ Insert Vascular Access Device: PICC (12/26/2022 11:50 AM CDT) Fabricio Melgar RN - 12/26/2022 11:50 AM CDT Fabricio Bliss RN 12/26/2022 11:54 AM Insertion of 4 Fr double lumen left basi lic PICC Date/Time: 12/26/2022 11:50 AM Proceduralist Type: RN Proceduralist: Fabricio Bliss RN Ordered By: EVERTON JACKSON APRN Procedure Location: Inpatient Drone Operator present: no Pre- Procedure diagnosis: ACUTE LYMPHOBL ASTIC LEUKEMIA Post-Procedure diagnosis: unchanged Indication for Procedure: Vascular Acces s and Chemotherapy Infusion Pre-Procedure Evaluation Patient examined pre-procedure and asses sment (including allergies, labs, imaging, history and physical exam) perf ormed. Informed consent obtained prior to procedure, the risks, benefits, and alternative discussed with patient/designated computer help desk representative. Pre-p rocedure the patient was alert. Time out: universal protocol time out pe rformed and documented. Anesthesia Anesthesia: local infiltration Local anesthetic: lidocaine 1% without e pinephrine Anesthetic total (ml): 5 Sedation Patient sedated?: no Procedure Site preparation: Hand hygiene performed prior to insertio n by all persons performing/assisting with procedure. I nsertion site prepped and cleaned with asceptic technique (Sterile devices , and equipment used. Doors closed and traffic minimized during procedure). Insertion site prepped with povidine iodine (if CHG allergy) (DURAPR EP). Skin prep agent completely dried prior to procedure according to [facility] guidelines. Maximum sterile barriers were used- sterile glov es, sterile gown, cap, mask and head to toe sterile cover. PICC cathet er insertion tray used. The patient was placed in a Flat/Supine position. The insertion site was anesthetized with lidocaine 1% without epinephrine via subcutaneous needle . A high level disinfected ultrasound probe with sterile cover was used for guidance . The ultrasound demonstrated compressibility of theleft basilic vein. Venous access obtained. Non-pulsatile dark red blood obtained. A permanent record of the ultrasound-guided vessel puncture image has been stored. Sterile Seldinger technique used (MODIFIED). M icroIntroducer with sheath inserted. Drip test performed to confirm venous pl acement. Dilator inserted gently over guidewire. Number of insertion attempt(s) was 1. Guidewire and dilator removed, examined, and found to be intact. Estimated blood loss was minimal. Specimen Removed: No. Post Procedure Needleless connector and IV tubing attac hed to catheter. Catheter sutured/secured in place, the s ite cleaned and sterile transparent dressing applied with biopat ch and the dressing labeled with date, time, and initial. Catheter re-ass essed and blood return through all lumens. Complications: no immediate complication Patient Condition: patient tolerated the procedure well with no immediate complications, patient does not report a dverse symptoms, patient remained hemodynamically stable throughout the pr ocedure and patient is warm and well perfused Responsiveness: alert Patient Disposition: remain in inpatient bed Comments LEFT forearm circumference: 24.5 cm LEFT upper arm circumference: 33 cm Patient instructed to wait for chest x-r ay for PICC placement confirmation. Everton Jackson APRN IV THERAPY ORDERABLES Vascular Access Ultrasound- VAP RN Device (12/26/2022 9:56 AM CDT) Specimen (Source) Anatomical Location Collection Method / Collectio n Time Received Time / Laterality Volume Narrative Systemgenerated, Documentation - 023 9:56 AM CDT This procedure requires no interpretatio n from the radiologist. Everton Jackson APRN IMG NON DI ORDERABLES CSF Diff Path Review (12/23/2022 2:42 PM CDT) Component Value Ref Test Analysis Performed At [facility] gist Range Method Time Signature CSF Diff Path NO DIAGNOSTIC HI Review EVIDENCE OF [place] Interpretation [facility] Comment: KIM KENT MD, PhD - [id number] Dictated by: KIM KENT MD, PhD - [phone] Dictated Date/Time: 12.24.2022 12:00 PM CDT Transcribed Date/Time: 12.24.2022 12:00 PM CDT Electronically Signed By: Laurie RUEDA, PhD - [id number] on 12.24.2022 12:00 PM Specimen Anatomical Collection Method Collection Time Receive d Time (Source) Location / / Volume Laterality CSF 12/23/2022 2:42 PM 3 3:32 CDT PM CDT Traci Desai MD BODY FLUIDS AND STOOLS ORDER ORTIZ Performing Organization Address City/State/ZIP Code Phon e Number [facility] Unless otherwise noted, [place], [place] [id number] [place] [address] all lab tests performed by: Division of Pathology and Laboratory Medicine [address] [place] [address] [place] CHEMOTX ADMN 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 REQ SPINAL PUNCTURE (12/23/2022 2:00 PM CDT) Narrative Everton Jackson APRN - 12/23/2022 2:00 PM C DT Everton Jackson APRN 12/23/2022 4:53 PM Lumbar puncture with chemo injection Date/Time: 12/23/2022 2:00 PM Provider Information: Authorized by: Traci Desai MD Performed by: Everton Jackson APRN Drone Operator present: no 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 no t needed Pre-Procedure Note: Consent obtained: yes Windsor protocol (time-out) performed: yes 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 Post-procedure diagnosis: unchanged Indications: Indication: treatment Anesthesia: Anesthesia: local infiltration and see M AR for details Local anesthetic: lidocaine 1% without e pinephrine and EMLA cream Anesthetic total (ml): 8 Pre-medications: Pre-medications used?: no IV Fluids: IV fluids administered: no Sedation: Patient sedated?: no Procedure Details: Preparation: patient was prepped and jimmy ped in usual sterile fashion Lumbar space: L4-L5 interspace Patient's position: sitting Needle gauge: 22 Needle type: Quincke needle Needle length (in): 3.5 Number of attempts: 1 Fluid appearance: clear Tubes of fluid: 3 Total volume (ml): 6 Estimated blood loss: minimal Post-procedure: site cleaned and adhesiv e bandage applied Complications: no Patient instructed to lie flat for (hour s): 1 hour Chemo/Biotherapy: Chemo/biotherapy: cytarabine and dexamet hasone (cytarabine 100 mg + dexamethasone 4 mg in 5 cc PF Shamar's) Volume of fluid instilled (ml): 5 Sample Disposition: Sample disposition: flow cytometry, cyto logy and chemistry Patient Disposition: Disposition: remain in inpatient bed Comments: Pt tolerated procedure well. 12/23/22 11:02 International Normalization Ratio: 1.06 Prothrombin Time: 13.9 aPTT: 26.7 D-Dimer: <0.27 Fibrinogen: 398 Plt 153K Traci Desai MD PROCEDURE/MINOR SURGICAL ORD ERABLES Sed Rate (12/22/2022 11:35 PM CDT)Only the most recent of2 resultswithin the time period is included. P athologist Signature Sed Rate 7 0 - 20 [facility] MD [facility] mm/hr [facility] Specimen Anatomical Collection Method Collection Time Receive d Time (Source) Location / / Volume Laterality Blood 12/22/2022 11:35 12/23/2022 3:08 PM CDT AM CDT Lisa Theodore MD LAB BLOOD ORDERABLES Performing Organization Address City/[facility] Code Phon e Number [facility] Unless otherwise noted, [address] all lab tests performed by: Division of Pathology and Laboratory Medicine [address] [facility] CRP (12/22/2022 11:35 PM CDT)Only the most recent of25 resultswithin the time period is included. athologist Signature CRP 0.47 mg/L [facility] Comment: Reference ranges for HS CRP assay are as follows: Reference ranges when used to assess car diac risk: <1.00 mg/L Low cardiovascular risk 1.00-3.00 mg/L Average cardiovascular risk >3.00 mg/L High cardiovascular risk. Reference ranges when used to assess inf lammatory responses: Less than or equal to 10.00 mg/L. Specimen Anatomical Collection Method Collection Time Receive d Time (Source) Location / / Volume Laterality Blood 12/22/2022 11:35 12/23/2022 PM CDT 12:02 AM CDT Lisa Theodore MD LAB BLOOD ORDERABLES Performing Organization Address City/[facility] Phon e Number [facility] Unless otherwise noted, [address] all lab tests performed by: Division of Pathology and Laboratory Medicine [address] [place] [address] OCT, Retina - OD - Right Eye (12/22/2022 2:18 PM CDT) Specimen (Source) Anatomical Location Collection Method / Collectio n Time Received Time / Laterality Volume Narrative Lillie Walls MD - 12/22/2022 3:27 PM CDT No significant change compare to prior exam Lillie Walls MD OPHTHALMOLOGY IMG ORDERABLES OCT, Optic Nerve - OD - Right Eye (12/22/2022 2:18 PM CDT) Specimen (Source) Anatomical Location Collection Method / Collectio n Time Received Time / Laterality Volume Narrative Lillie Walls MD - 12/22/2022 3:27 PM CDT Decrease thickness of peripapillary retinal nerve fiber layer right eye with more thinning temporally Lillie Walls MD OPHTHALMOLOGY IMG ORDERABLES [place] Visual Field, Intermediate - OD - Right Eye (12/22/2022 2:17 PM CDT) Specimen (Source) Anatomical Location Collection Method / Collectio n Time Received Time / Laterality Volume Narrative Lillie Walls MD - 12/22/2022 3:29 PM CDT Threshold was 30-2. The AVF laterality was right. Strategy was MAGDALENA. Spot description was size 3. Notes Decrease foveal sensitivity right eye wi th extension of visual field defect to include inferior nasal visua l field defect Lillie Walls MD OPHTHALMOLOGY IMG ORDERABLES [place] THERAPEUTIC SPINAL PUNCTURE DRAINAGE CSF (12/03/2022 3:39 PM CDT) Nava Katz NP - 12/03/2022 3:39 PM CDT Nava Valladares NP 12/04/2022 7:20 AM Lumbar Puncture without Chemotherapy Inj ection Date/Time: 12/03/2022 3:39 PM Provider Information: Performed by: Nava Valladares NP Authorized by: Nava Valladares NP Drone Operator present: yes Drone Operator: ADINA Hu 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 no t needed Pre-Procedure Note: Consent obtained: yes Windsor protocol (time-out) performed: yes 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 Post-procedure diagnosis: unchanged Indications: Indications: therapeutic Anesthesia: Anesthesia: local infiltration and see M AR for details Local anesthetic: lidocaine 1% without e pinephrine and EMLA cream Anesthetic total (ml): 3 Pre-medications: Pre-medications used?: no IV Fluids: IV fluids administered: no peripheral in travenous hydration Sedation: Patient sedated?: patient not sedated Procedure Details: Preparation: patient was prepped and jimmy ped in usual sterile fashion Lumbar space: L5-S1 interspace Patient's position: sitting Needle gauge: 22 Needle length (in): 3.5 Number of attempts: 1 Fluid appearance: clear Tubes of fluid: 3 Total volume (ml): 6 Estimated blood loss: minimal Post-procedure: site cleaned and adhesiv e bandage applied Complications?: no Patient instructed to lie flat for (hour s): 1 hour Sample Disposition: Sample disposition: flow cytometry, cyto logy and chemistry Patient Disposition: Disposition: remain in current area Comments: Timeout performed. Patient denies taki ng blood thinners. The lumbar puncture needle was reangled twice in or flor to obtain CSF fluid. The patient tolerated the procedure well. After the procedure was completed, pressure was applied to the area until n o bleeding was noted. Then, a bandage was applied. He was instructed to lie flat for 1 hour after the procedure was completed. Nava Valladares APRN PROCEDURE/MINOR SURGICAL ORD ERABLES [place] Visual Field, Intermediate - OD - Right Eye (12/01/2022 2:32 PM CDT) Specimen (Source) Anatomical Location Collection Method / Collectio n Time Received Time / Laterality Volume Lillie Brooks MD - 12/01/2022 2:41 PM CDT Threshold was 30-2. The AVF laterality was right. Strategy was MAGDALENA. Spot description was size 3. Notes 1 db drop in foveal sensitivity right ey e Better MD right eye otherwise No signifi cant change in pattern compare to prior exam Lillie Walls MD OPHTHALMOLOGY IMG ORDERABLES OCT, Optic Nerve - OU - Both Eyes (12/01/2022 2:28 PM CDT) Specimen (Source) Anatomical Location Collection Method / Collectio n Time Received Time / Laterality Volume Lillie Brooks MD - 12/01/2022 2:38 PM CDT This result has an attachment that is no t available. 6 microne drop in peripapillary nerve fi ester layer right eye Lillie Walls MD OPHTHALMOLOGY IMG ORDERABLES OCT, Retina - OU - Both Eyes (12/01/2022 2:28 PM CDT) Specimen (Source) Anatomical Location Collection Method / Collectio n Time Received Time / Laterality Volume Lillie Brooks MD - 12/01/2022 2:38 PM CDT No significant change compare to prior exam Lillie Walls MD OPHTHALMOLOGY IMG ORDERABLES [place] CHEMOTX [facility] 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 REQ SPINAL PUNCTURE (11/26/2022 1:00 PM CDT) Jazz Fall PA - 11/26/2022 1:00 PM CDT ANA MARIA Coleman 11/26/2022 1:18 PM Lumbar puncture with chemo injection Date/Time: 11/26/2022 1:00 PM Provider Information: Authorized by: Sher James MD Performed by: ANA MARIA Coleman Drone Operator present: yes Drone Operator: ANA MARIA Hayes 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 no t needed Pre-Procedure Note: Consent obtained: yes Windsor protocol (time-out) performed: yes 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,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 Post-procedure diagnosis: unchanged Indications: Indication: prophylaxis Anesthesia: Anesthesia: local infiltration Local anesthetic: lidocaine 1% without e pinephrine Anesthetic total (ml): 3 Pre-medications: Pre-medications used?: no IV Fluids: IV fluids administered: no Sedation: Patient sedated?: no Procedure Details: Preparation: patient was prepped and jimmy ped in usual sterile fashion Lumbar space: L3-L4 interspace Patient's position: sitting Needle gauge: 22 Needle type: Quincke needle Needle length (in): 3.5 Number of attempts: 1 Fluid appearance: clear Tubes of fluid: 2 Total volume (ml): 5 Estimated blood loss: none Post-procedure: site cleaned and adhesiv e bandage applied Complications: no Patient instructed to lie flat for (hour s): 1 hour Chemo/Biotherapy: Chemo/biotherapy: cytarabine (hydrocorti sine) Volume of fluid instilled (ml): 5 Sample Disposition: Sample disposition: flow cytometry, cyto logy and chemistry Patient Disposition: Disposition: remain in current area Comments: The patient was assisted into the sittin g position on the side of the bed. The L3-S1 area was prepped and draped i n a sterile fashion. The L3-L4 area was anesthetized with 1% lidocaine solution. On the first pass bone was hit, redirected needle x 2 as patien t was complaining of pain veering to the right and then clear cerebrospina l fluid was obtained. A total of 4 ccs was collected in 2 separate test tub es. Cytarabine 100 mg and 40 mg dexamethasone in 5 mL of preservative-fr ee Shamar's B solution was then slowly administered over the next 1 to 2 minutes, stylet was reintroduced and the needle was withdrawn. Pressure w as applied over the site with no sign of bleeding. The patient tolerated the procedure without any complications. Samples were sent off for cell count, differential, flow cytometry, and cytology. The patient was instructed to lie flat with only 1 pillow for 1 hour and to drink plenty of fluids to help prevent a headache. Sher James MD PROCEDURE/MINOR SURGICAL ORD ERABLES FC Acute Leukemia Screen Collection, Nonblood (11/19/2022 11:16 AM CDT)Only the most recent of2 resultswithin the time period is included. athologist Signature Flow Cytometry Yes [facility] (Received) [facility] CENTER Specimen Anatomical Collection Method Collection Time Receive d Time (Source) Location / / Volume Laterality CSF 11/19/2022 11:16 11/19/2022 2:21 AM CDT PM CDT Marco A Kingsley APRN MDA HP FC NONBLOOD COLLECTIO NS Performing Organization Address City/State/ZIP Code Phon e Number [facility] Unless otherwise noted, [place], [place] [id number] [place] [address] all lab tests performed by: Division of Pathology and Laboratory Medicine [facility] [place] CHEMOTX [facility] 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 REQ SPINAL PUNCTURE (11/19/2022 10:40 AM CDT) Narrative Momo Rose APN - 11/19/2022 10:40 AM CDT Momo Rose APN 11/19/2022 1:06 PM Lumbar puncture with chemo injection Date/Time: 11/19/2022 10:40 AM Provider Information: Authorized by: Sher James MD Performed by: Momo Rose APN Drone Operator present: yes Drone Operator: Marco A Kingsley NP 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 no t needed Pre-Procedure Note: Consent obtained: yes Windsor protocol (time-out) performed: yes 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 Post-procedure diagnosis: unchanged Indications: Indication: prophylaxis Anesthesia: Anesthesia: see MAR for details Local anesthetic: EMLA cream and lidocai ne 1% without epinephrine Pre-medications: Pre-medications used?: no IV Fluids: IV fluids administered: no Sedation: Patient sedated?: no Procedure Details: Lumbar space: L5-S1 interspace Needle gauge: 22 Needle type: Quincke needle Needle length (in): 3.5 Number of attempts: 3 or more Fluid appearance: clear Tubes of fluid: 3 Total volume (ml): 7 Estimated blood loss: minimal Post-procedure: site cleaned and adhesiv e bandage applied Complications: no Patient instructed to lie flat for (hour s): 1 hour Chemo/Biotherapy: Chemo/biotherapy: cytarabine, see MAR fo r details and other Other chemo/biotherapy: Decadron 4mg Volume of fluid instilled (ml): 5 Sample Disposition: Sample disposition: flow cytometry, chem istry and cytology Patient Disposition: Disposition: remain in inpatient bed Comments: Lumbar Puncture Procedure Note Procedure Date: November 19, 2022 Pre-procedure Diagnosis: ALL Post-procedure Diagnosis: ALL Premedications: 1. EMLA cream topically 2. Lidocaine 1% infiltration Instrument used: 22 gauge, 3.5 inch spinal needle. Indications: Diagnostic labs and prophyl actic chemotherapy. Procedure Detail: The patient was correctly identified as Juan Luis Duvall and . The preprocedure verification, Windsor protocol and chemotherapy was verified by myself and Marco A Kingsley NP. Consent was obtained. The patient was assisted to th e sitting position, attempted twice at L4/L5, however continued to hit bone. Patient was identified, prepped and draped and anesthetized with lidocaine 1% subcutaneously. Marco A Kingsley attempted twice at L5/S1, on secon d attempt, clear cerebrospinal fluid was obtained, about 5 mls of fluid was drained and set aside for labs, then cytarabine 100 mg/Dexamethaso ne 4mg in 5 mls of preservative free normal saline for intrathecal injec tion was slowly instilled over 3-5 minutes, the stylet was reintroduced and the needle was removed. There were no complications, the patient did n ot report any pain. Pressure was applied to the site until hemostasis was obtained, then a Band-Aid was applied. The patient was assisted to t he supine position and was instructed to remain flat with 1 pillow for at least 1 hour. The spinal fluid was sent to the lab for cell count, differential and pathology and flow cytometry (FC [id number]). Pertinent lab data: Lab Results Component Value Date WBC 9.1 11/19/2022 HGB 11.2 (L) 11/19/2022 HCT 33.2 (L) 11/19/2022 MCV 97 11/19/2022 PLT 205 11/19/2022 PT 13.9 11/17/2022 PTT 23.5 11/17/2022 INR 1.07 11/17/2022 Sher James MD PROCEDURE/MINOR SURGICAL ORD ERABLES OCT, Optic Nerve - OU - Both Eyes (11/17/2022 2:26 PM CDT) Specimen (Source) Anatomical Location Collection Method / Collectio n Time Received Time / Laterality Volume Lillie Brooks MD - 11/18/2022 12:36 AM CDT No significant change compare to prior exam Lillie Walls MD OPHTHALMOLOGY IMG ORDERABLES OCT, Retina - OU - Both Eyes (11/17/2022 2:26 PM CDT) Specimen (Source) Anatomical Location Collection Method / Collectio n Time Received Time / Laterality Volume Narrative Lillie Walls MD - 11/18/2022 12:36 AM CDT No significant change compare to prior exam Lillie Walls MD OPHTHALMOLOGY IMG ORDERABLES [place] DIAGNOSTIC LUMBAR SPINAL PUNCTURE (11/14/2022 4:31 PM CDT) Gareth Downing APN - 11/14/2022 4:31 PM CDT Gareth Bingham APN 11/14/2022 4:34 PM Lumbar Puncture without Chemotherapy Inj ection Date/Time: 11/14/2022 4:31 PM Provider Information: Performed by: Gareth Bingham APN Authorized by: Gilbert Ortiz NP Drone Operator present: yes Drone Operator: Gilbert Ortiz NP 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 no t needed Pre-Procedure Note: Consent obtained: yes Windsor protocol (time-out) performed: yes Patient Diagnosis: Pre-Procedure Diagnosis: ALL Post-procedure diagnosis: unchanged Indications: Indications: diagnostic Anesthesia: Anesthesia: see MAR for details Local anesthetic: lidocaine 1% without e pinephrine Anesthetic total (ml): 3 Pre-medications: Pre-medications used?: no IV Fluids: IV fluids administered: no peripheral in travenous hydration Sedation: Patient sedated?: patient not sedated Procedure Details: Preparation: patient was prepped and jimmy ped in usual sterile fashion Lumbar space: L4-L5 interspace Patient's position: sitting Needle gauge: 22 Needle type: Quincke needle Needle length (in): 3.5 Number of attempts: 1 Fluid appearance: blood-tinged then marcie ring Tubes of fluid: 4 Total volume (ml): 8 Estimated blood loss: none Post-procedure: site cleaned and adhesiv e bandage applied Complications?: no Patient instructed to lie flat for (hour s): 1 hour Sample Disposition: Sample disposition: flow cytometry, chem istry and cytogenetics (CAR-T) Patient Disposition: Disposition: remain in inpatient bed Comments: PROCEDURE IN DETAIL: The lumbar puncture with intrathecal bettie motherapy was perform by Gareth Bingham APRN under the direct supervision of Gilbert Ortiz APRN, who both participated in the universal dave col. The patient was correctly identified by the name, the patient's nd dical record number, and patient's date. The patient was fully unde rstands the procedure and the consent form was signed and put in the c walsh. The patient was prepared in sitting position at bedside, leaning for moreno on the bedside table. Lumbar area was well exposed and skin was clean ed using Betadine solution. The area between L4-L5 was anesthetized with 1% lidocaine solution. The 22-gauge, 3.5-inch spinal needle was use d for lumbar puncture. On the first try, clear CSF came out steadily a nd ordered specimens were collected. During the procedure, the pat ient tolerated well and with no complaints. After the procedure, patie nt was instructed to lie flat for at least an hour and report any headache s, nausea, vomiting, numbness, dizziness, or abnormal feelings. The s pecimens were sent to the lab for testing. Gilbert Ortiz APRN PROCEDURE/MINOR SURGICAL ORD ERABLES VRE Rectal Swab (11/13/2022 10:00 PM CDT)Only the most recent of3 resultswithin the time period is included. [facility] Method Time Signature Final Report No Vancomycin [facility] Enterococci CANCER isolated CENTER Specimen Anatomical Collection Method Collection Time Receive d Time (Source) Location / / Volume Laterality Rectal Swab 11/13/2022 10:00 11/14/2022 3:43 PM CDT AM CDT Yolykrissy Laurie Rosen APRN MICROBIOLOGY - GENERAL ORDER ORTIZ Performing Organization Address City/State/ZIP Code Phon e Number [facility] Unless otherwise noted, [place] [address] CENTER all lab tests performed by: Division of Pathology and Laboratory Medicine [address] [place] Visual Field, Extended - OD - Right Eye (11/13/2022 11:35 AM CDT) Specimen (Source) Anatomical Location Collection Method / Collectio n Time Received Time / Laterality Volume Narrative Lillie Walls MD - 11/13/2022 12:43 PM CDT Threshold was 30-2. The AVF laterality was right. Strategy was MAGDALENA. Spot description was size 3. Notes OS: NLP Decrease foveal sensitivity Right hemianopic visual field defect n ew Lillie Walls MD OPHTHALMOLOGY IMG ORDERABLES OCT, Optic Nerve - OU - Both Eyes (11/13/2022 11:35 AM CDT) Specimen (Source) Anatomical Location Collection Method / Collectio n Time Received Time / Laterality Volume Narrative Lillie Walls MD - 11/13/2022 12:31 PM CDT Decrease thickness of peripapillary retinal nerve fiber layer right eye compare to prior Lillie Walls MD OPHTHALMOLOGY IMG ORDERABLES OCT, Retina - OU - Both Eyes (11/13/2022 11:35 AM CDT) Specimen (Source) Anatomical Location Collection Method / Collectio n Time Received Time / Laterality Volume Narrative Lillie Walls MD - 11/13/2022 12:32 PM CDT No significant change compare to prior exam Lillie Walls MD OPHTHALMOLOGY IMG ORDERABLES (ABNORMAL) Urine Culture (10/05/2022 6:17 PM CDT)Only the most recent of4 resultswithin the time period is included. [facility] Method Time Signature Final Report <10,000 cfu/ml Normal site so present. GABRIEL GARCIA Generally of low significance. [place] Correlate with clinical data and culture history. CANCER CENTER (A) Specimen Anatomical Collection Method Collection Time Receive d Time (Source) Location / / Volume Laterality Urine 10/05/2022 6:17 PM 7:18 CDT PM CDT Melanie Louis MD MICROBIOLOGY - GENERAL ORDER ORTIZ Performing Organization Address City/State/ZIP Code Phon e Number [facility] Unless otherwise noted, [place] [address] CENTER all lab tests performed by: Division of Pathology and Laboratory Medicine [address] X-ray Chest 1 View (10/05/2022 4:48 PM CDT)Only the most recent of3 results within the time period is included. Anatomical Region Laterality Modality Chest Digital Radiography Specimen (Source) Anatomical Collection Method Collection Time Re ceived Time Location / / Volume Laterality 10/05/2022 4:58 PM CDT Impressions 10/05/2022 4:59 PM CDT No evidence of acute or neoplastic disease. Narrative 10/05/2022 4:59 PM CDT FULL RESULT: Examination: Portable Chest, [facility], [facility] 2022 at 4:42 PM Clinical History: Acute lymphoblastic le ukemia Indication: Shortness of breath Comparison: July 09, 2022 Technique: Single portable frontal radio graph of the chest on 2 images Findings: The lungs are clear. The cardiac silhoue tte is within normal limits. Electrocardiogram leads are present. Procedure Note Marely Braxton MD - 10/05/2022Formatti ng of this note might be different from the original. FULL RESULT: Examination: Portable Chest, 1 view, [facility] 2022 at 4:42 PM Clinical History: Acute lymphoblastic le ukemia Indication: Shortness of breath Comparison: July 09, 2022 Technique: Single portable frontal radio graph of the chest on 2 images Findings: The lungs are clear. The cardiac silhoue tte is within normal limits. Electrocardiogram leads are present. IMPRESSION: No evidence of acute or neoplastic disea se. Melanie Louis MD IMG DIAGNOSTIC IMAGING ORDER ORTIZ (ABNORMAL) POC VBG+Lac (10/05/2022 2:57 PM CDT) P athologist Signature POC VB pH 7.41 7.31 - POC TELCOR 7.41 POC VB pCO2 35 (L) 41 - 51 POC TELCOR mmHg POC VB pO2 41 mmHg POC TELCOR POC VB TCO2 23 (L) 24 - 29 POC TELCOR mEq/L POC VB Bicarb 22 (L) 23 - 28 POC TELCOR mmol/L POC VB Base Ex -2 -2 - 3 POC TELCOR mmol/L POC VB O2 Sat 77 % POC TELCOR POC VB LAC 0.33 (L) 0.90 - POC TELCOR 1.70 mmol/L Comment: Method description: The i-STAT is an nae lyzer used for in vitro quantification of various analytes in whole blood. The device uses a single disposable cartridge which contains microfabricated sensors, a calibration solution, fluidics system, and a waste chamber. Each test cartridge contains ch emically sensitive biosensors on a silicon chip that are configured to perform specific tests. The microfabricated sensors measure analyte concentration by an electrochemical assay. POC Sample Type Venous POC TELCOR POC Clean Dev Yes POC TELCOR Performing Lab [facility] POC TELCO R Comment: [facility], [address] [place] [address]; Lab Direct or: Shraddha Polanco MD; Waived Point of Care Testing - Niurka Kenny MD Specimen Anatomical Collection Method Collection Time Receive d Time (Source) Location / / Volume Laterality Blood 10/05/2022 2:57 PM 2:57 CDT PM CDT Melanie Louis MD POCT ORDERABLES - DEVICE Performing Organization Address City/State/ZIP Code Phon e Number POC TELCOR Unless otherwise noted, [place] [address] lab tests performed by: Division of Pathology and Laboratory Medicine [address] [place] [address] (ABNORMAL) Procalcitonin (PCT) (10/05/2022 2:47 PM CDT) athologist Signature Procalcitonin 0.12 (H) <=0.08 HI ng/mL [facility] [place] Comment: Procalcitonin > 2.00 ng/mL: Procalcit onin levels above 2.00 ng/mL are highly suggestive of a high risk for systematic bacterial infection/ severe sepsis and/or septic shock. Procalcitonin < 0.50 ng/mL: Procalcito bradley levels below 0.50 ng/mL are at low risk for progression to severe sepsis and/ or septic shock. Procalcitonin (ProCT) between 0.15 and 2 .0 ng/mL do not exclude infection, because localized infections (without systemic signs) may be associated with such low levels. Results greater than 400 ng/mL may not b e reliable due to the matrix effect with extended dilution as it exceeds the nursing student's recommended limit. Caution should be exercised when interpreting such values and done in conjunction with clinical context. Specimen Anatomical Collection Method Collection Time Receive d Time (Source) Location / / Volume Laterality Blood 10/05/2022 2:47 PM 3 2:55 CDT PM CDT Melanie Louis MD LAB BLOOD ORDERABLES Performing Organization Address City/[facility] Code Phon e Number [facility] Unless otherwise noted, [place] [address] [place] all lab tests performed by: Division of Pathology and Laboratory Medicine [address] Cardiac Panel (10/05/2022 2:47 PM CDT)Only the most recent of3 resultswithin the time period is included. athologist Signature CK 55 39 - 308 [facility] U/L [facility] CK MB <2.0 <=10.4 [facility] ng/mL [facility] Troponin T 8 <=18 ng/L [facility] Comment: < 19 ng/L Suggest retest at 3 to 6 hours later to rule out myocardial infarction >= 19 to <=52 ng/L Pos sible myocardial injury. Suggest retest at 3 hours. - a change of < 20 ng/L, retest at 6 hours - a change of >= 20 ng/L, suggestive of myocardial infarction > 52 ng/L Suggestive of myocardial infarction Critical value will be reported when cTn T is > 52 ng/L and only reported for the first in a series. Hemolyzed specimens with Hemolysis Index >100 (100 mg/dl or moderate hemolysis) may cause interferences and falsely low results. Specimen Anatomical Collection Method Collection Time Receive d Time (Source) Location / / Volume Laterality Blood 10/05/2022 2:47 PM 3 2:53 CDT PM CDT Melanie Louis MD LAB BLOOD ORDERABLES Performing Organization Address City/State/[facility] Phon e Number [facility] Unless otherwise noted, [address] all lab tests performed by: Division of Pathology and Laboratory Medicine [address] [place] [address] NT-Pro BNP (In-House) (10/05/2022 2:47 PM CDT)Only the most recent of2 results within the time period is included. P athologist Signature NT ProBNP 121 <=125 pg/mL [facility] Specimen Anatomical Collection Method Collection Time Receive d Time (Source) Location / / Volume Laterality Blood 10/05/2022 2:47 PM 3 2:53 CDT PM CDT Melanie Louis MD LAB BLOOD ORDERABLES Performing Organization Address City/State/ZIP Code Phon e Number [facility] Unless otherwise noted, [address] all lab tests performed by: Division of Pathology and Laboratory Medicine [address] [place] [address] [place] DIAGNOSTIC BONE MARROW BIOPSIES & ASPIRATIONS (09/17/2022 12:34 PM HAND ROLLER) Specimen (Source) Anatomical Location Collection Method / Collectio n Time Received Time / Laterality Volume Bone marrow specimen (specimen) Narrative [facility] - 12:34 PM HAND ROLLER ANA MARIA Bazan 09/17/2022 1:02 PM Procedure: Bone marrow aspiration/biopsy Date/Time: 09/17/2022 12:34 PM Provider Information: Performed by: ANA MARIA Bazan Authorized by: ANA MARIA Cat Drone Operator present: yes Drone Operator: Miryam Cunningham medical imaging 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 n ot needed Patient Diagnosis: Pre-procedure diagnosis: PCPALL Post-procedure diagnosis: unchanged Indication: Indication: evaluation of disease status Anesthesia: Anesthesia: local infiltration and see M AR for details Patient anesthetized by: advanced practi ce provider Local anesthetic: lidocaine 1% without e pinephrine Anesthetic total (ml): 20 Sedation: Patient sedated?: patient not sedated Aspirate Site(s): Laterality: right Site location: posterior iliac crest Instrument(s) used: [place] needle Instruments placed by: advanced practice provider Biopsy Site(s): Laterality: right Site location: posterior iliac crest Instrument(s) used: Ben needle Instruments placed by: advanced practice provider Dressing: Dressing: compression bandage Post-Procedure Patient Assessment: Patient tolerance: well Estimated blood loss: minimal Complications/Observations: no complicat ions Greater than 20ccs of Lidocaine given?: No Discharge/Disposition: Discharge instructions: verbal and patie nt verbalized understanding Patient discharged to: discharge to home Disposition mode: other Other disposition mode: Ambulatory mac bueno Sample Disposition: Testing performed: flow cytometry, cytog enetics, molecular and pathology (clonoSEQ, multiplex ) Research samples(s): no Aspirate volume obtained (mL) - right: 3 0 Visual assessment for aspirate specimen adequacy - right: few particles Visual assessment for biopsy specimen ad equacy (cm) - right: 1.3 Biopsy specimen integrity - right: whole Comments: This procedure was performed by Mirta montelongo PA-C. The patient was positively identified by Name, MRN, and . Laboratory values were reviewed and platelet count was 127 and adequate for the procedure. The patient denies use of blood thinners. Romain ne marrow aspiration and biopsy done. Mr. Duvall tolerated the proce dure well. Sensitive on aspirate collection. Applied pressure to the site until homeostasis achieved. I wrote the date and timing of the procedu re on the dressing. Patient was instructed to keep the bandage on and dr y for 48 hours after the procedure and verbalized clear understanding. No c omplications were observed immediately after the procedure. Pertinent lab data: Lab Results Component Value Date WBC 5.4 09/17/2022 HGB 11.4 (L) 09/17/2022 HCT 33.6 (L) 09/17/2022 MCV 98 09/17/2022 PLT 127 (L) 09/17/2022 PT 14.2 (H) 07/29/2022 PTT 25.7 07/29/2022 INR 1.10 07/29/2022 Magalis RODGERS PROCEDURE/MINOR SURGICAL ORD ERABLES Performing Organization Address City/State/ZIP Code Phon e Number [facility] Unless otherwise noted, [place] [address] [place] all lab tests performed by: Division of Pathology and Laboratory Medicine [facility] Hematopathology Bone Marrow Interpretation (09/17/2022 12:19 PM HAND ROLLER)Only the most recent of4 resultswithin the time period is included. 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 Microscopic BONE MARROW BIOPSY 09/18/2022 [facility] ABS Description 6:34 PM Quality: Subcortical HAND ROLLER Cellularity: 40-50% Megakaryocytes: Decreased, generally with unremarkable morph ology Infiltrate: No atypical cell ular infiltrate identified; scattered foamy macrophages are variably increased BONE MARROW CLOT Quality: Particles present Cellularity: 60% Megakaryocytes: Present with a patchy distribution, generally with unremarkable morphology Infiltrate: No atypical cell ular infiltrate identified; scattered foamy macrophages are variably increased BONE MARROW SMEARS Quality: Particles present Granulocytes: Moderately dec reased; undergoing maturation, generally with unremarkable morphology Erythrocytes: Undergoing maturation, generally with unrema rkable morphology Megakaryocytes: Variably present, generally with unremarkabl e morphology Lymphocytes: Not significantly increased, small and mature-a ppearing Blasts: Not increased BONE MARROW TOUCH IMPRINT Quality: Hematopoietic cells present; the cellular composition reflects the biopsy and is similar to the aspirate smears. Gross B: 09/18/2022 [facility] Description Iliac crest, right posterior, clot 6:3 4 PM Dimensions: 0.3 x 3.0 x 2.5 cm HAND ROLLER Specimen is entirely submitted in 1. NB C: Iliac crest, right posterior, biopsy Length: 1.5 cm Submitted in a single cassette for decalcification. NB Disclaimer "Some tests 09/18/2022 [facility] reported here may 6:34 PM have been HAND ROLLER developed and performance characteristics determined by [facility] Pathology and Laboratory Medicine. These tests have not been specifically cleared or approved by the U.S. Food and Drug Administration. If applicable, controls were reviewed and showed appropriate reactivity." Peripheral CBC w/ Differential 09/17/2022 09/18/2022 [facility] Blood 6:34 PM 3.44 !Low RBC HAND ROLLER 11.4 !Low HEMOGLOBIN 33.6 !Low HEMATOCRIT 33.1 !High MEAN CELL HEMOGLOBIN 59.6 !High RDW-SD 16.7 !High RDW-CV 127 !Low PLATELET COUNT 11.4 !High MEAN PLATELET VOLUME 69.1 !High NEUTROPHIL % 10.1 !Low LYMPHOCYTE % 15.3 !High MONOCYTE % 4.4 !High EOSINOPHIL % 0.55 !Low LYMPHOCYTE ABS 0.83 !High MONOCYTE ABS 5.4 WBC 98 MEAN CELL VOLUME 33.9 MEAN CELL HEMOGLOBIN CONCENTRATION 0.0 INRBC 0.7 BASOPHIL % 0.4 IGRE % 3.76 NEUTROPHIL ABS 0.24 EOSINOPHIL ABS 0.04 BASOPHIL ABS 0.02 IG ABS Specimen Anatomical Collection Method Collection Time Receive d Time (Source) Location / / Volume Laterality Bone marrow Collection / 09/17/2022 12:19 09/17/2022 1:47 specimen Unknown PM HAND ROLLER PM HAND ROLLER (specimen) (Iliac Crest, Right Posterior, Aspirate) Bone marrow Collection / 09/17/2022 12:19 09/17/2022 1:15 specimen Unknown PM HAND ROLLER PM HAND ROLLER (specimen) (Iliac Crest, Right Posterior, Clot) Bone marrow 09/17/2022 12:19 09/17/2022 1:15 specimen PM HAND ROLLER PM HAND ROLLER (specimen) (Iliac Crest, Right Posterior, Biopsy) Dougie Lyons MD LAB PATHOLOGY ORDERABLES Performing Organization Address City/State/ZIP Code Phon e Number [facility] [place] [address], [place] [address] (ABNORMAL) Hematopathology Bone Marrow Differential (09/17/2022 12:19 PM HAND ROLLER) Only the most recent of4 resultswithin the time period is included. Component Value Ref Test Analysis Performed At [facility] Range Method Time Signature Method Smear 09/18/2022 [facility] 6:33 PM HAND ROLLER Adequacy Satisfactory 09/18/2022 [facility] for evaluation 6:33 PM HAND ROLLER Total cells 500 09/18/2022 [facility] counted 6:33 PM HAND ROLLER BM Blast % 2 0 - 5 % 09/18/2022 [facility] 6:33 PM HAND ROLLER BM Progranulocyte 1 (L) 2 - 8 % 09/18/2022 [facility] % 6:33 PM HAND ROLLER BM Myelocyte % 5 5 - 20 % 09/18/2022 [facility] 6:33 PM HAND ROLLER BM Metamyelocyte 9 (L) 13 - 32 09/18/2022 [facility] % % 6:33 PM HAND ROLLER BM Granulocyte % 28 7 - 30 % 09/18/2022 [facility] 6:33 PM HAND ROLLER BM Eosinophil % 3 0 - 4 % 09/18/2022 [facility] 6:33 PM HAND ROLLER BM Lymphocyte % 13 3 - 17 % 09/18/2022 [facility] 6:33 PM HAND ROLLER BM Monocyte % 6 (H) 0 - 5 % 09/18/2022 [facility] 6:33 PM HAND ROLLER BM Pronormoblast 1 1 - 8 % 09/18/2022 [facility] % 6:33 PM HAND ROLLER BM Normoblast % 33 (H) 7 - 32 % 09/18/2022 [facility] 6:33 PM HAND ROLLER BM M:E Ratio 1.6 (L) 3.0 - 09/18/2022 [facility] 4.0 6:33 PM HAND ROLLER Specimen Anatomical Collection Method Collection Time Receive d Time (Source) Location / / Volume Laterality Bone marrow Collection / 09/17/2022 12:19 09/17/2022 1:47 specimen Unknown PM HAND ROLLER PM HAND ROLLER (specimen) (Iliac Crest, Right Posterior, Aspirate) Narrative [facility] - 09/18/2022 6:33 PM HAND ROLLER DISCLAIMER Preliminary BM Diff may have been comple ned by a medical grade shoemaker or a hematopathology fellow and is subject to change. Any pathologist updates will be included on interpretation and appear in the f inal result. Please use caution in evalu ating your patient based on preliminary results. Dougie Lyons MD LAB PATHOLOGY ORDERABLES Performing Organization Address City/State/ZIP Code Phon e Number [facility] [place] [address], [place] [address] Adaptive clonoSEQ-Send out, Bone Marrow (09/17/2022 12:18 PM HAND ROLLER)Only the most recent of4 resultswithin the time period is included. [facility] gist Method Time Signature Adaptive Shipped Out HI clonPanfilo [facility] Comment: Specimen for clonoSEQ testing was obtain ed, processed and sent out to the [employer] [facility]. Refer to separate Educabilia es Portal for results. Testing Indication MRD-Tracking HI MD LEUNG [facility] Specimen Anatomical Collection Method Collection Time Receive d Time (Source) Location / / Volume Laterality Bone Marrow 09/17/2022 12:18 09/18/2022 3:08 PM HAND ROLLER PM HAND ROLLER Magalis RODGERS LAB BLOOD ORDERABLES Performing Organization Address City/[facility]/ZIP Code Phon e Number [facility] Unless otherwise noted, [address] all lab tests performed by: Division of Pathology and Laboratory Medicine Cristine Deras MD Ph-Like ALL Fusion Multiplex Panel Collection, Nonblood - 4 mL purple top for send out (09/17/2022 12:18 PM HAND ROLLER) athologist Signature Molecular Yes [facility] (Received) Specimen Anatomical Collection Method Collection Time Receive d Time (Source) Location / / Volume Laterality Bone Marrow 09/17/2022 12:18 09/17/2022 3:09 PM HAND ROLLER PM HAND ROLLER Magalis JAVIER NS Performing Organization Address City/[facility]/ZIP Code Phon e Number [facility] Unless otherwise noted, [address] all lab tests performed by: Division of Pathology and Laboratory Medicine Cristine Deras MD t(9;22) BCR/ABL1 Quantitative PCR Collection, Nonblood (09/17/2022 12:18 PM HAND ROLLER)Only the most recent of2 resultswithin the time period is included. athologist Signature Molecular Yes [facility] (Received) Specimen Anatomical Collection Method Collection Time Receive d Time (Source) Location / / Volume Laterality Bone Marrow 09/17/2022 12:18 09/17/2022 3:09 PM HAND ROLLER PM HAND ROLLER Magalis JAVIER NS Performing Organization Address City/[facility]/ZIP Code Phon e Number [facility] Unless otherwise noted, [address] all lab tests performed by: Division of Pathology and Laboratory Medicine Cristine Deras CG Chromosome Analysis Collection, Nonblood (09/17/2022 12:18 PM HAND ROLLER)Only the most recent of4 resultswithin the time period is included. P athologist Signature Cytogenetics Yes [place] (Received) [facility] Specimen Anatomical Collection Method Collection Time Receive d Time (Source) Location / / Volume Laterality Bone Marrow 09/17/2022 12:18 09/17/2022 2:44 PM HAND ROLLER PM HAND ROLLER Magalis RODGERS MDA HP CG NONBLOOD COLLECTIO NS Performing Organization Address City/[facility]/ZIP Code Phon e Number [facility] Unless otherwise noted, [address] all lab tests performed by: Division of Pathology and Laboratory Medicine [address] [place] [address] CG Chromosome Analysis Interpretation and Report (09/17/2022 12:18 PM HAND ROLLER)Only the most recent of4 resultswithin the time period is included. Specimen (Source) Anatomical Collection Method Collection Time Re ceived Time Location / / Volume Laterality 09/17/2022 12:18 PM HAND ROLLER Narrative This result has an attachment that is no t available. Magalis RODGERS MDA CYTOGENETICS (HP CG) Performing Organization Address City/[facility] Code Phon e Number [facility] Unless otherwise noted, [address] all lab tests performed by: Division of Pathology and Laboratory Medicine [address] [place] [address] Cytogenetics Specimen Collection -Bone Marrow (09/17/2022 12:18 PM HAND ROLLER)Only the most recent of4 resultswithin the time period is included. Patholo gist Method Time Signature Beaker Ap Link [id number] Cytogenetics Yes [place] (Received) [facility] Specimen Anatomical Collection Method Collection Time Receive d Time (Source) Location / / Volume Laterality Bone Marrow 09/17/2022 12:18 09/17/2022 2:44 PM HAND ROLLER PM HAND ROLLER Magalis RODGERS MDA HP CG NONBLOOD COLLECTIO NS Performing Organization Address City/[facility] Phon e Number [facility] Unless otherwise noted, [address] all lab tests performed by: Division of Pathology and Laboratory Medicine [address] [place] [address] FC MRD B ALL Interpretation and Report (09/17/2022 12:18 PM HAND ROLLER)Only the most recent of3 resultswithin the time period is included. Specimen (Source) Anatomical Collection Method Collection Time Re ceived Time Location / / Volume Laterality 09/17/2022 12:18 PM HAND ROLLER Narrative This result has an attachment that is no t available. Magalis RODGERS MDA HP FLOW CYTOMETRY (HP FC ) Performing Organization Address City/[facility]/ZIP Code Phon e Number [facility] Unless otherwise noted, [address] all lab tests performed by: Division of Pathology and Laboratory Medicine [address] [place] [address] Molecular Diagnostics Specimen Collection -Bone Marrow (09/17/2022 12:18 PM HAND ROLLER) Only the most recent of4 resultswithin the time period is included. Patholo gist Method Time Signature Molecular Yes [facility] ([facility]) [facility] Deon Ap Link [id number] [facility] Specimen Anatomical Collection Method Collection Time Receive d Time (Source) Location / / Volume Laterality Bone Marrow 09/17/2022 12:18 09/17/2022 3:09 PM HAND ROLLER PM HAND ROLLER Magalis HACKETT MD NONBLOOD COLLECTIO NS Performing Organization Address City/[facility]/ZIP Code Phon e Number [facility] Unless otherwise noted, [address] all lab tests performed by: Division of Pathology and Laboratory Medicine [address] [place] [address] FC CAR19 ([id number]) Collection, Blood (09/17/2022 10:28 AM HAND ROLLER)Only the most recent of10 resultswithin the time period is included. P athologist Signature Flow Cytometry Yes [facility] ([facility]) [facility] Specimen Anatomical Collection Method Collection Time Receive d Time (Source) Location / / Volume Laterality Blood 09/17/2022 10:28 09/17/2022 2:29 AM HAND ROLLER PM HAND ROLLER Magalis RODGERS MDA HP FC BLOOD COLLECTIONS Performing Organization Address City/[facility]/ZIP Code Phon e Number [facility] Unless otherwise noted, [address] all lab tests performed by: Division of Pathology and Laboratory Medicine [address] [place] [address] FC Lymphocyte Subset Panel Collection, Blood (09/17/2022 10:28 AM HAND ROLLER)Only the most recent of2 resultswithin the time period is included. [facility] Flow Cytometry Yes [facility] (Received) [facility] Specimen Anatomical Collection Method Collection Time Receive d Time (Source) Location / / Volume Laterality Blood 09/17/2022 10:28 09/17/2022 2:29 AM HAND ROLLER PM HAND ROLLER Narrative [facility] - 3 3:25 PM CDT Please do CD3,CD4,CD8 \\T\\ CD19 Magalis RODGERS MDA FC BLOOD COLLECTIONS Performing Organization Address City/State/ZIP Code Phon e Number [facility] Unless otherwise noted, [place] [address] CENTER all lab tests performed by: Division of Pathology and Laboratory Medicine [address] (ABNORMAL) FC Lymphocyte Subset Panel (09/17/2022 10:28 AM HAND ROLLER)Only the most recent of2 resultswithin the time period is included. athologist [facility] WBC Count, 5.4 K/uL [facility] LymphSub [facility] Comment: Test performed by: [facility] Flow Cytometry Laboratory [address] [place] [id number] Gated Lymph Region, LymphSub Add 8.4 % [facility] Comment: Test performed by: [facility] Flow Cytometry Laboratory [address] [place] [address] 10856 CD3+ 63.6 54.9 - 90.4 % [facility] Comment: Test performed by: [facility] Flow Cytometry Laboratory [address] [place] [address]60[address] CD3+ Absolute 288 (L) 410 - 2,259 cells/mcL [facility] Comment: Test performed by: [facility] Flow Cytometry Laboratory [address] [place] [address] 10196 CD3+CD4+ 50.9 31.1 - 60.6 % [facility] Comment: Test performed by: [facility] Flow Cytometry Laboratory [address] [place] [address] 13499 CD3+CD4+ Absolute 231 (L) 263 - 1,426 cells/mcL [facility] Comment: Test performed by: [facility] Flow Cytometry Laboratory [address] [place] [address] 94130 CD3+CD8+ 12.4 10.8 - 39.7 % [facility] Comment: Test performed by: [facility] Flow Cytometry Laboratory [address] [place] [address]1811 CD3+CD8+ Absolute 56 30 - 891 cells/mcL [facility] Comment: Test performed by: [facility] Flow Cytometry Laboratory [address] [place] [address]284 CD4+/CD8+ Ratio 4.10 (H) 1.80 - 3.50 [facility] Comment: Test performed by: [facility] Flow Cytometry Laboratory [address] [place] [address] CD16+CD56+ 32.0 (H) 1.2 - 25.4 % [facility] Comment: Test performed by: [facility] Flow Cytometry Laboratory [address] [place] [address]888 CD16+CD56+ Absolute 145 0 - 520 cells/mcL [facility] Comment: Test performed by: [facility] Flow Cytometry Laboratory [address] [place] [address]2269 CD19+ 4.3 (L) 4.9 - 21.0 % [facility] Comment: Test performed by: [facility] Flow Cytometry Laboratory [address] [place] [address] CD19+ Absolute 20 (L) 27 - 447 cells/mcL [facility] Comment: Test performed by: [facility] Flow Cytometry Laboratory [address] [place] [address] Specimen Anatomical Collection Method Collection Time Receive d Time (Source) Location / / Volume Laterality Blood 09/17/2022 10:28 09/17/2022 2:29 AM HAND ROLLER PM HAND ROLLER Narrative [facility] - 3 12:02 PM HAND ROLLER This test was developed and its performance characteristics determined by [facility] Clinical Flow Cytomet ry Laboratory. It has not been cleared o r approved by the US Food and Drug Administration. The FDA does not require this test go through premarket FDA review. This test is used for clinical p urposes. It should not be regarded as investigational or for research. This laboratory is certified under the Clinical Laboratory Improvement Amendment of 1988 (CLIA) as qualified to perform high complexity clinical laboratory testing. Magalis RODGERS [facility] HP FLOW CYTOMETRY (HP FC ) Performing Organization Address City/State/ZIP Code Phon e Number [facility] Unless otherwise noted, [place] [address] [place] all lab tests performed by: Division of Pathology and Laboratory Medicine [address] [place] [address] Peripheral Smear for Bone Marrow (09/17/2022 10:28 AM HAND ROLLER)Only the most recent of4 resultswithin the time period is included. P athologist Signature Peripheral PSMEAR [facility] Smear DIAGNOSTIC CENTER Specimen Anatomical Collection Method Collection Time Receive d Time (Source) Location / / Volume Laterality Blood 09/17/2022 10:28 09/17/2022 AM HAND ROLLER 10:45 AM HAND ROLLER Magalis RODGERS LAB BLOOD ORDERABLES Performing Organization Address City/[facility] Phon e Number [facility] DIAGNOSTIC Unless otherwise noted, [place], [place] [address] [place] all lab tests performed by: Division of Pathology and Laboratory Medicine [address] [place] [address] [place] DIAGNOSTIC BONE MARROW BIOPSIES & ASPIRATIONS (08/20/2022 1:46 PM HAND ROLLER) Specimen (Source) Anatomical Location Collection Method / Collectio n Time Received Time / Laterality Volume Bone marrow specimen (specimen) Narrative [facility] - 3 1:46 PM HAND ROLLER ANA MARIA Mooer 08/20/2022 4:48 PM Procedure: Bone marrow aspiration/biopsy Date/Time: 08/20/2022 1:46 PM Provider Information: Performed by: ANA MARIA Moore Authorized by: ANA MARIA Cat Drone Operator present: yes Drone Operator: Keven Teixeira, RT medical imaging 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 n ot needed 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 Post-procedure diagnosis: unchanged Indication: Indication: evaluation of disease status Anesthesia: Anesthesia: local infiltration Patient anesthetized by: advanced practi ce provider Local anesthetic: lidocaine 1% without e pinephrine Anesthetic total (ml): 20 Sedation: Patient sedated?: patient not sedated Aspirate Site(s): Laterality: left Site location: posterior iliac crest Instrument(s) used: [place] needle Instruments placed by: advanced practice provider Biopsy Site(s): Laterality: left Site location: posterior iliac crest Instrument(s) used: Jamshidi needle Instruments placed by: advanced practice provider Dressing: Dressing: compression bandage Post-Procedure Patient Assessment: Patient tolerance: well Estimated blood loss: none Complications/Observations: no complicat ions Pre-procedure pain scale: 0/10 Greater than 20ccs of Lidocaine given?: No Post-procedure pain scale: 0/10 Discharge/Disposition: Discharge instructions: verbal and patie nt verbalized understanding Patient discharged to: discharge to home Disposition mode: wheelchair Sample Disposition: Testing performed: flow cytometry, cytog enetics, molecular and pathology (AdaptiveClonoSeq) Research samples(s): no Aspirate volume obtained (mL) - left: 25 Visual assessment for aspirate specimen adequacy - left: particles Visual assessment for biopsy specimen ad equacy (cm) - left: 1.5 Biopsy specimen integrity - left: whole Comments: Reviewed meds and allergies prior to the procedure. Reviewed risks and post instructions wit h patient. Consent was obtained. No complications post procedure.Hemostas is achieved. No bleeding. Patient was instructed to keep the area dry for 48 hours, no showers/baths, and verbalized understand ing. Time and date were written on the dressi ng. Procedure was completed by Brittny Reveles i, PA-C under my supervision. Magalis RODGERS PROCEDURE/MINOR SURGICAL ORD ERABLES Performing Organization Address City/State/ZIP Code Phon e Number [facility] Unless otherwise noted, [place] [address] [place] all lab tests performed by: Division of Pathology and Laboratory Medicine [address] [facility]ECT[facility] DIAGNOSTIC BONE MARROW BIOPSIES & ASPIRATIONS (07/30/2022 1:34 PM HAND ROLLER) Specimen (Source) Anatomical Location Collection Method / Collectio n Time Received Time / Laterality Volume Bone marrow specimen (specimen) Narrative [facility] [place] - 3 1:34 PM HAND ROLLER Marichuy Peraza APN 07/30/2022 2:03 PM Procedure: Bone marrow aspiration/biopsy Date/Time: 07/30/2022 1:34 PM Provider Information: Performed by: Marichuy Peraza APN Authorized by: ANA MARIA Cat Drone Operator present: yes Drone Operator: Paolo T Randell, RT medical imaging 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 n ot needed 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 Post-procedure diagnosis: unchanged Indication: Indication: evaluation of disease status Anesthesia: Anesthesia: local infiltration Patient anesthetized by: advanced practi ce provider Local anesthetic: lidocaine 1% without e pinephrine Anesthetic total (ml): 20 Sedation: Patient sedated?: patient not sedated Aspirate Site(s): Laterality: right Site location: posterior iliac crest Instrument(s) used: [place] needle Instruments placed by: advanced practice provider Biopsy Site(s): Laterality: right Site location: posterior iliac crest Instrument(s) used: EugeneMagento needle Instruments placed by: advanced practice provider Dressing: Dressing: compression bandage Post-Procedure Patient Assessment: Patient tolerance: well Estimated blood loss: none Complications/Observations: no complicat ions Pre-procedure pain scale: 0/10 Greater than 20ccs of Lidocaine given?: No Post-procedure pain scale: 0/10 Discharge/Disposition: Discharge instructions: verbal Patient discharged to: other Other: discharge to clinic for further v 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 Site prepped with chlorhexidine, sterile precautions maintained throughou t entirety of procedure. Samples obtained via aspiration and biopsy. Lexie ent tolerated procedure well. Pressure held to site until hemostasis a chieved. Pressure dressing applied with initials, time and date. Patient ve rbalized understanding of discharge instructions and taken to dism issal in wheelchair in stable condition in no acute distress. Magalis RODGERS PROCEDURE/MINOR SURGICAL ORD ERABLES Performing Organization Address City/State/ZIP Code Phon e Number [facility] Unless otherwise noted, [place] [address] [place] all lab tests performed by: Division of Pathology and Laboratory Medicine [address] [place], [place] [address]flor Deras Cytokine Panel 3 Final Report (07/29/2022 8:46 AM HAND ROLLER)Only the most recent of12 resultswithin the time period is included. Specimen (Source) Anatomical Collection Method Collection Time Re ceived Time Location / / Volume Laterality 07/29/2022 8:46 AM HAND ROLLER Narrative This result has an attachment that is no t available. Magalis RODGERS LAB BLOOD ORDERABLES Performing Organization Address City/[facility]/ZIP Code Phon e Number [facility] Unless otherwise noted, [address] all lab tests performed by: Division of Pathology and Laboratory Medicine [address] (ABNORMAL) Cytokine Panel 3 (07/29/2022 8:46 AM HAND ROLLER)Only the most recent of12 resultswithin the time period is included. P athologist Signature INF gamma 25 (H) 0 - 5 pg/mL [facility] IL-6 129 (H) 0 - 5 pg/mL [facility] TNF alpha 12 0 - 22 [facility] pg/mL [facility] Specimen Anatomical Collection Method Collection Time Receive d Time (Source) Location / / Volume Laterality Blood 07/29/2022 8:46 AM 3 HAND ROLLER 10:40 AM HAND ROLLER Magalis RODGERS LAB BLOOD ORDERABLES Performing Organization Address City/[facility]/ZIP [facility] Phon e Number [facility] Unless otherwise noted, [address] all lab tests performed by: Division of Pathology and Laboratory Medicine [address] (ABNORMAL) Ferritin Level (07/29/2022 8:46 AM HAND ROLLER)Only the most recent of21 resultswithin the time period is included. P athologist Signature Ferritin Lvl 1,527 (H) 30 - 400 [facility] ng/[facility] Specimen Anatomical Collection Method Collection Time Receive d Time (Source) Location / / Volume Laterality Blood 07/29/2022 8:46 AM 3 9:17 HAND ROLLER AM HAND ROLLER Magalis RODGERS LAB BLOOD ORDERABLES Performing Organization Address City/[facility]/ZIP [facility] Phon e Number [facility] Unless otherwise noted, [address] all lab tests performed by: Division of Pathology and Laboratory Medicine [address] Calcium Ionized, Venous (07/18/2022 12:47 AM HAND ROLLER)Only the most recent of15 resultswithin the time period is included. P athologist Signature V Ion Ca 1.24 1.15 - 1.29 [facility] [place] Specimen Anatomical Collection Method Collection Time Receive d Time (Source) Location / / Volume Laterality Blood 07/18/2022 12:47 07/18/2022 1:07 AM HAND ROLLER AM HAND ROLLER Yanelis RODGERS LAB BLOOD ORDERABLES Performing Organization Address City/State/ZIP Code Phon e Number [facility] Unless otherwise noted, [address] all lab tests performed by: Division of Pathology and Laboratory Medicine [address] [place] [address] Lactic Acid, Venous (07/18/2022 12:47 AM HAND ROLLER)Only the most recent of13 results within the time period is included. athologist Signature V Lactate 1.3 0.5 - 1.6 [facility] [place] Specimen Anatomical Collection Method Collection Time Receive d Time (Source) Location / / Volume Laterality Blood 07/18/2022 12:47 07/18/2022 1:07 AM HAND ROLLER AM HAND ROLLER Yanelis RODGERS LAB BLOOD ORDERABLES Performing Organization Address City/[facility]/ZIP Code Phon e Number [facility] Unless otherwise noted, [address] all lab tests performed by: Division of Pathology and Laboratory Medicine [address] [place] [address] COVID-19 (SARS-CoV-2) PCR-Asymptomatic (07/16/2022 11:21 AM HAND ROLLER)Only the most recent of4 resultswithin the time period is included. [facility] Method Time Signature COVID19 (SARS Not Detected Not Detected [facility] CoV-2) [facility] Comment: This test is a qualitative reverse-trans criptase polymerase chain reaction (RT- PCR) developed for the Luc[employer] FORD 6800 system and intended for qualitative detection of SARS CoV-2 RNA in nasopharyngeal a nd oropharyngeal swab specimens collecte d from any individuals, including those suspected o f COVID-19 by their healthcare provider, and those without symptoms or other reasons to suspect COVID-19. A fact sheet for patients provided by the nursing student ( [employer]) can be rev iewed at: https://www.fda.gov/media/110298/felipe villarreal. A fact sheet for Health Care providers is provided by the nursing student ([employer]) and can be reviewed at: https://www.fda.gov/media/997682/download Results must be interpreted within the c ontext of all relevant clinical and laboratory findings and should not form the sole basis for a diagnosis or treatment decision. Positive results do not rule out bacterial infection or co- infection with other viruses. Negative results do not rule ou t SARS-CoV-2 and must be combined with clinical observations, patient history, and/or epidemiological information. "Presumptive Positive" results are due t o partial amplification of SARS-CoV-2 targets and indicates low amounts of virus present in the specimen at or near the limit of detection. Regardless, individuals with "Presumptive Positive" results should be managed per institutional guidelines as individuals positive for SARS-CoV-2 virus, including use of appropriate infection control protocols. Internal controls are included to assess for possible amplification inhibitors. If inhibition is detected, testing is repeated and if inhibition is confirmed the specimen is resulted as "Invalid". When an "Invalid" result occurs, it is recomm ended to wait 3 days before submitting a new spec imen for testing if clinically indicated. This assay has been approved by the FDA for use only under Emergency Use Authorization (EUA) in laboratories that have been CLIA-certified to perform moderate-complexity and high-complexity tests. The performance characteristics of this assay were verified by the Microbiology Laboratory at [facility], CLIA Accreditation #: [id number] and CAP Accreditation #: [id number]. COVID19 SARS Source BLIND [employer]AT STAPLING MACHINE OPERATOR Swab HI MD [facility] COVID19 SARS Indication Inpatient Admission [facility] Specimen (Source) Anatomical Collection Method Collection Time Re ceived Time Location / / Volume Laterality Nasopharyngeal Swab 07/16/2022 11:21 06/20 AM HAND ROLLER 11:42 AM HAND ROLLER Narrative [facility] - 6:44 PM HAND ROLLER Weekly hematology surveillance testing Alla Jenkins MD MICROBIOLOGY - GENERAL ORDER ORTIZ Performing Organization Address City/State/ZIP Code Phon e Number [facility] Unless otherwise noted, [place] [address] CENTER all lab tests performed by: Division of Pathology and Laboratory Medicine [address] EKG, 12-Lead (Portable) (07/15/2022)Only the most recent of4 resultswithin the time period is included. Specimen (Source) Anatomical Location Collection Method / Collectio n Time Received Time / Laterality Volume Narrative This result has an attachment that is no t available. Marco A Kingsley APRN ECG ORDERABLES Performing Organization Address City/State/ZIP Code Phon e Number [facility] I[facility] CT Soft Tissue Neck with Contrast (07/12/2022 10:15 PM HAND ROLLER)Only the most recent of2 resultswithin the time period is included. Anatomical Region Laterality Modality Neck Computed Tomography Specimen (Source) Anatomical Collection Method Collection Time Re ceived Time Location / / Volume Laterality 07/12/2022 11:26 PM HAND ROLLER Impressions 07/13/2022 12:13 AM HAND ROLLER Impression: * No significant changes when compared to 07/10/2022 CT neck. * Full report to follow This is a preliminary senior resident/herlinda lyles report and has not been reviewed by an attending radiologist ATTENDING NOTE: The retropharyngeal/prevertebral effusio n, noted on the previous earlier study of 07/10/2022 has resolved. There are no suspicious cervical lymph n odes. Once again, pansinus inflammatory change s are noted with acute and chronic features. Bilateral mastoid effusions are present. IMPRESSION: 1. Resolution of retropharyngeal/parav ertebral effusion/edema. 2. Pansinusitis with acute and chronic features. 3. Bilateral mastoid effusions. I personally reviewed these image(s) tamara ng with the resident's/fellow's interpretations, certify that if a procedure was performed I was physically present, and agree with the final report. Narrative 07/13/2022 12:13 AM HAND ROLLER The deep venous CT SOFT TISSUE NECK W CONTRAST 07/12/2022 11:26 PM History: Menard chromosome-positiv e acute lymphoblastic leukemia Indication: Neck imaging for reason othe r than neoplasm, infection, or neck trauma, Neck swelling, Dysphagia, Hoarseness Comparison:CT neck 07/10/2022 Procedure Note Gautam Yeboah MD - 07/13/2022Forma tting of this note might be different from the original. The deep venous CT SOFT TISSUE NECK W CO NTRAST 07/12/2022 11:26 PM History: Menard chromosome-positiv e acute lymphoblastic leukemia Indication: Neck imaging for reason othe r than neoplasm, infection, or neck trauma, Neck swelling, Dysphagia, Hoarseness Comparison:CT neck 07/10/2022 IMPRESSION: Impression: * No significant changes when compared t o 07/10/2022 CT neck. * Full report to follow This is a preliminary senior resident/herlinda lyles report and has not been reviewed by an attending radiologist ATTENDING NOTE: The retropharyngeal/prevertebral effusio n, noted on the previous earlier study of 07/10/2022 has resolved. There are no suspicious cervical lymph n odes. Once again, pansinus inflammatory change s are noted with acute and chronic features. Bilateral mastoid effusions are present. IMPRESSION: 1. Resolution of retropharyngeal/paraver tebral effusion/edema. 2. Pansinusitis with acute and chronic f eatures. 3. Bilateral mastoid effusions. I personally reviewed these image(s) tamara camp with the resident's/fellow's interpretations, certify that if a procedure was performed I was physically present, and agree with the final report. Marco A Kingsley APRN IM CT ORDERABLES (ABNORMAL) Urinalysis with Microscopic (07/12/2022 9:12 AM HAND ROLLER)Only the most recent of3 resultswithin the time period is included. [facility] gist Method Time Signature UA Color Straw [facility] UA Appear Clear Clear [facility] UA Glucose NEG NEG mg/dL [facility] UA Bili NEG NEG [facility] UA Ketones Trace (A) NEG mg/dL [facility] UA Spec Grav 1.012 1.003 - [place] 1.035 [facility] UA Blood NEG NEG [facility] UA pH 7.0 5.0 - 9.0 [facility] UA Protein NEG NEG mg/dL [facility] UA Urobilinogen NEG NEG [facility] UA Nitrite NEG NEG [facility] UA Leuk Est NEG NEG [facility] UA WBC 1 0 - 2 HI MD /[facility] Comment: Some reporting parameters within the Uri nalysis test have changed due to the implementation of new instrumentation in the [facility], allowing greater sensitivity of measurement. Urinalysis results rep orted by the [facility] using existing instrumentation, as well as Urinalysis t esting performed manually or by backup methodology at the [facility] will remain relatively unchanged. New reporting parameters and units will not be reported for all [facility]. UA RBC 1 0 - 2 /HPF [facility] [place] [facility] UA Mucous NOT SEEN Not Seen-Trace /HPF HI MD [facility] UA Bacteria NOT SEEN NOT SEEN /HPF [facility] UA Squam Epi OCC None-Occasional /HPF [facility] Specimen Anatomical Collection Method Collection Time Receive d Time (Source) Location / / Volume Laterality Urine 07/12/2022 9:12 AM 9:20 HAND ROLLER AM HAND ROLLER Marco A Kingsley APRN URINE ORDERABLES Performing Organization Address City/State/ZIP Code Phon e Number [facility] Unless otherwise noted, [address] all lab tests performed by: Division of Pathology and Laboratory Medicine [address] [place] [address] (ABNORMAL) POC Glucose Screen (07/09/2022 11:31 AM HAND ROLLER)Only the most recent of8 resultswithin the time period is included. P athologist Signature POC Glucose 106 (H) 70 - 99 POC [facility] mg/dL Comment: RN Notified Capillary blood samples, e.g. obtained b y fingerstick, may have inaccurate results in patients with decreased peripheral blood flow. Method description: All results are giuliana ured using Electrochemistry test methodology. The glucose in the sample mixes with the reagents on the test strip. The reaction produces an electric current. The amount of current produced is proportion al to the glucose concentration in the blood. PO Sample Type Capillary POC [facility] Performing Lab [facility] POC [facility]EL[facility] R Comment: [facility], [facility], [place] [address]; Lab Direct or: Shraddha Polanco MD Specimen Anatomical Collection Method Collection Time Receive d Time (Source) Location / / Volume Laterality Blood 07/09/2022 11:31 07/09/2022 AM HAND ROLLER 11:31 AM HAND ROLLER Alla Jenkins MD POCT ORDERABLES - DEVICE Performing Organization Address City/State/ZIP Code Phon e Number POC [facility] Unless otherwise notes, [place] [address] lab tests performed by: Division of Pathology and Laboratory Medicine [address] EEG (07/09/2022 9:31 AM HAND ROLLER) Specimen (Source) Anatomical Location Collection Method / Collectio n Time Received Time / Laterality Volume Narrative Merlin Michaels MD - 07/09/2022 10:53 AM HAND ROLLER Merlin Michaels MD 07/09/2022 10:57 AM EEG REPORT. IMPRESSION: Normal predominant drowsy/sl eep, brief awake state background EEG. CLINICAL HISTORY: 52-year-old with pj rn for seizure. Technique : ICU State; awake, drowsy, Sl eep, follows commands. MEDICATIONS: KEPPRA, Findings : During the brief awake state, posterior dominant rhythms do reach 9 Hz. Patient transit ions to drowsy and N1 N2 sleep stage quickly. Dana Corbett MD NEUROLOGY ORDERABLES CT Head without Contrast (07/09/2022 4:07 AM HAND ROLLER)Only the most recent of2 resultswithin the time period is included. Anatomical Region Laterality Modality Head Computed Tomography Specimen (Source) Anatomical Collection Method Collection Time Re ceived Time Location / / Volume Laterality 07/09/2022 4:54 AM HAND ROLLER Impressions 07/09/2022 8:23 AM HAND ROLLER 1. No acute intracranial abnormality wit hin limitations of motion artifact. 2. Extensive paranasal sinus inflammator y disease that has progressed when compared to previous exam and is limitedly assessed given extensive motion. Correlate clinically for acute sinusitis. 3. Nonspecific stranding/free fluid with in the upper neck subcutaneous soft tissues. I personally reviewed these image(s) tamara camp with the resident's/fellow's interpretations, certify that if a procedure was performed I was physically present, and agree with the final report. Narrative 07/09/2022 8:23 AM HAND ROLLER FULL RESULT: EXAMINATION: CT HEAD WO CONTRAST on 06/20 4:07 AM COMPARISON: CT brain without contrast . MRI dated 05/01/2022. HISTORY: Menard chromosome-positiv e acute lymphoblastic leukemia. 52-year-old male with the-a.l. 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 INDICATION: Altered mental status TECHNIQUE: CT scan of the brain was perf ormed without intravenous contrast as per departmental protocol. Exam quality limited by patient motion. FINDINGS: INTRACRANIAL: The brain parenchyma is un remarkable. The mcfarland-white matter differentiation is maintained. There is no evidence for intra-axial or extra-axial hemorrhage. No midline shift or mass effect seen. There is no evidence for hydrocephalus. There is no large acute territorial infa rction. CALVARIA: The calvaria and extracranial soft tissues are unremarkable. ORBITS: The orbital structures are unrem arkable. SINUSES: There is mucosal thickening wit hin the left frontal sinus opacification of the right frontal sinus which has increased when compared to previous exam. There is near complete opacification of romain th ethmoid sinuses, increased when lizy red to previous exam. Air-fluid levels present within the right aspect of the sphenoid sinus which is new. Opacification of both hypoplastic maxillary sinuses wit h hyperdense secretions is present. Hype rdense secretions within the maxillary sinuses are not changed when compared to previous exam. Hyperdense secretions present within the sphenoid sinus. This has n ot significantly changed when compared t o previous exam. Redemonstrated are changes of prior functional endoscopic sinus surgery. Assessment of the surrounding fat pads is challenging given extensive mo tion. Trace fluid is present within the mastoids. There is nonspecific fat stranding within the bilateral parotid and subcutaneous soft tissues within the parotid space and posterior and anterior neck. No organized fluid collec tion within the visualized regions. Procedure Note Dolores Graham MD - 07/09/2022 FULL RESULT: EXAMINATION: CT HEAD WO CONTRAST on 06/20 4:07 AM COMPARISON: CT brain without contrast . MRI dated 05/01/2022. HISTORY: Menard chromosome-positiv e acute lymphoblastic leukemia. 52-year-old male with the-a.l. 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 INDICATION: Altered mental status TECHNIQUE: CT scan of the brain was perf ormed without intravenous contrast as per departmental protocol. Exam quality limited by patient motion. FINDINGS: INTRACRANIAL: The brain parenchyma is un remarkable. The mcfarland-white matter differentiation is maintained. There is no evidence for intra-axial or extra-axial hemorrhage. No midline shift or mass effect seen. There is no evidence for hydrocephalus. There is no large acute territorial infa rction. CALVARIA: The calvaria and extracranial soft tissues are unremarkable. ORBITS: The orbital structures are unrem arkable. SINUSES: There is mucosal thickening wit hin the left frontal sinus opacification of the right frontal sinus which has increased when compared to previous exam. There is near complete opacification of both ethmoid sinuses, increased when compared to prev ious exam. Air-fluid levels present within the right aspect of the sphenoid sinus which is new. Opacification of both hypoplastic maxillary sinuses with hyperdense secretions is present. Hyperdense secret ions within the maxillary sinuses are not changed when compared to previous exam. Hyperdense secretions present within the sphenoid sinus. This has not significantly changed when compared to previous exam. Redemonstrate d are changes of prior functional endoscopic sinus surgery. Assessment of the surrounding fat pads is challenging given extensive motion. Trace fluid is present within the mastoids. There is nonspecific fat stran ding within the bilateral parotid and subcutaneous soft tissues within the parotid space and posterior and anterior neck. No organized fluid collec tion within the visualized regions. IMPRESSION: 1. No acute intracranial abnormality wit hin limitations of motion artifact. 2. Extensive paranasal sinus inflammator y disease that has progressed when compared to previous exam and is limitedly assessed given extensive motion. Correlate clinically for acute sinusitis. 3. Nonspecific stranding/free fluid with in the upper neck subcutaneous soft tissues. I personally reviewed these image(s) tamara camp with the resident's/fellow's interpretations, certify that if a procedure was performed I was physically present, and agree with the final report. Kasandra Larkin APRN IMG CT ORDERABLES (ABNORMAL) VBG (07/08/2022 5:51 PM HAND ROLLER)Only the most recent of2 resultswithin the time period is included. P athologist Signature pH Abhilash 7.43 7.32 - 7.43 [facility] [place] Comment: Results are corrected for a bod y temp of 37C pCO2 Abhilash 36.8 (L) 41.0 - 51.0 mmHg HI MD [facility] pO2 Abhilash 35 mmHg HI MD [facility] HCO3 Abhilash 24 21 - 28 mmol/L [facility] Base Excess Abhilash 0 -2 - 3 mmol/L HI MD [facility] O2 Sat Abhilash 68 % [facility] ER CENTER Specimen Anatomical Collection Method Collection Time Receive d Time (Source) Location / / Volume Laterality Blood 07/08/2022 5:51 PM 5:56 HAND ROLLER PM HAND ROLLER Zabrina Valdez APRN LAB BLOOD ORDERABLES Performing Organization Address City/State/ZIP Code Phon e Number [facility] Unless otherwise noted, [place] [address] [place] all lab tests performed by: Division of Pathology and Laboratory Medicine [address] Echocardiogram 2D Complete (07/08/2022 3:34 PM HAND ROLLER) Specimen (Source) Anatomical Collection Method Collection Time Re ceived Time Location / / Volume Laterality 07/08/2022 2:14 PM HAND ROLLER Narrative [facility] - 07/08/2022 4:49 PM HAND ROLLER Echocardiographic Report Interpretation Summary A two-dimensional transthoracic echocard iogram with M-mode and Doppler was performed. The study was technically difficult. Compared to prior study, changes are noted. Normal left ventricular size and systoli c function. LV ejection fraction calculated using th e bi-plane method of disks is 55-60%. The right ventricle is normal in size an d function. There is no pericardial effusion. Right ventricular systolic pressure is e levated at 36-40mmHg. Left Ventricle: Normal left ventricular size and systoli c function. LV ejection fraction calculated using the bi-plane method of disks is 55-60%. I WMSI = 1.00 % Normal = 1 00 Segments Size X - Cannot 2 - 1-2 small Interpret 1 - Normal Hypokine tic 3 - Akinetic 4 - Dyskinetic3- 5 moderate 5 - Aneurysmal 6-14 large 15-16 diffuse 3D imaginD volumes were not performed in this st udy. Cardiac Mechanics/Speckle Tracking Imagi ng: Speckle tracking imaging was technically limited. Diastology: Unable to evaluate due to tachycardia. Right Ventricle: The right ventricle is normal in size an d function. Normal RV systolic function using TAPSE criteria. Atria: Atria are normal in size. Mitral Valve: The mitral valve is grossly normal. Tricuspid Valve: The tricuspid valve is not well visualiz ed, but is grossly normal. There is trace tricuspid regurgitation. Right ventricular systolic pressure is elevated at 36-40mmHg. Aortic Valve: The aortic valve is not well visualized. No hemodynamically significant valvular aortic stenosis. Pulmonic Valve: The pulmonic valve is not well visualize d. Great Vessels: The aortic root is normal size. The infe rior vena cava is dilated, respiratory variation was not evaluated. Pericardium/Pleural: There is no pericardial effusion. MMode/2D Measurements IVSd: 0.98 cm LVIDd: 5.2 cm LVIDs: 3.3 cm LVPWd: 0.99 cm FS: 35.8 % Ao root diam: 4.2 cm Ao root area: 14.2 cm2 LA dimension: 2.9 cm LVOT diam: 2.1 cm EDV(MOD-A4C): 94.2 ml ESV(MOD-A4C): 41.5 ml LVOT area: 3.6 cm2 EF(MOD-A4C): 56.0 % EDV(MOD-A2C): 80.5 ml ESV(MOD-A2C): 30.9 ml EDV(MOD-bp): 87.5 ml EF(MOD-A2C): 61.7 % ESV(MOD-bp): 38.6 ml EF(MOD-bp): 55.9 % LAV(MOD-A2C): 47.0 ml LAV(MOD-A4C): 43.0 ml EDV (MOD-bp) Index: 40.7 ml/m2 LAV(MOD-bp): 44.6 ml LAV(MOD-bp) Indexed: 20.8 ml/m2 ESV (MOD-bp) Index: 18.0 ml/m2 RWT: 0.38 cm TAPSE (>1.6): 1.9 cm Doppler Measurements MV E max mary kate: 96.6 cm/sec MV V2 max: 131.7 cm/sec MV max P.9 mmHg MV V2 mean: 80.2 cm/sec MV mean P.1 mmHg MV V2 VTI: 10.8 cm MVA(VTI): 4.6 cm2 MV dec time: 0.06 sec Ao V2 max: 117.4 cm/sec Ao max P.5 mmHg Ao V2 mean: 72.2 cm/sec Ao mean P.5 mmHg Ao V2 VTI: 12.4 cm LUIS ALBERTO(I,D): 4.0 cm2 LUIS ALBERTO(V,D): 3.2 cm2 LV V1 max P.5 mmHg SV(LVOT): 49.9 ml LV V1 mean P.1 mmHg LV V1 max: 106.6 cm/sec LV V1 mean: 65.7 cm/sec LV V1 VTI: 14.0 cm PA V2 max: 90.2 cm/sec TR max mary kate: 269.8 cm/sec PA max P.3 mmHg TR max P.1 mmHg PA V2 mean: 57.8 cm/sec RVSP(TR): 37.1 mmHg PA mean P.6 mmHg PA V2 VTI: 9.5 cm RAP systole: 8.0 mmHg LUIS ALBERTO Index (I,D): 1.9 LUIS ALBERTO Index (V,D): 1.5 Dimensionless Index: 0.91 Procedure Note Yobani Garvey MD - 07/08/2022Formatti ng of this note might be different from the original. Echocardiographic Report Interpretation Summary A two-dimensional transthoracic echocard iogram with M-mode and Doppler was performed. The study was technically difficult. Compared to prior study, changes are noted. Normal left ventricular size and systoli c function. LV ejection fraction calculated using th e bi-plane method of disks is 55-60%. The right ventricle is normal in size an d function. There is no pericardial effusion. Right ventricular systolic pressure is e levated at 36-40mmHg. Left Ventricle: Normal left ventricular size and systoli c function. LV ejection fraction calculated using the bi-plane method of disks is 55-60%. I WMSI = 1.00 % Normal = 100 Segments Size X - Cannot 2 - 1-2 small Interpret 1 - Normal Hypokinetic 3 - Ak inetic 4 - Dyskinetic3-5 moderate 5 - Aneurysmal 6-14 large 15-16 diffuse 3D imaginD volumes were not performed in this [facility]. Cardiac Mechanics/Speckle Tracking Imagi ng: Speckle tracking imaging was technically limited. Diastology: Unable to evaluate due to tachycardia. Right Ventricle: The right ventricle is normal in size an d function. Normal RV systolic function using TAPSE criteria. Atria: Atria are normal in size. Mitral Valve: The mitral valve is grossly normal. Tricuspid Valve: The tricuspid valve is not well visualiz ed, but is grossly normal. There is trace tricuspid regurgitation. Right ventricular systolic pressure is elevated at 36-40mmHg. Aortic Valve: The aortic valve is not well visualized. No hemodynamically significant valvular aortic stenosis. Pulmonic Valve: The pulmonic valve is not well visualize d. Great Vessels: The aortic root is normal size. The infe rior vena cava is dilated, respiratory variation was not evaluated. Pericardium/Pleural: There is no pericardial effusion. MMode/2D Measurements IVSd: 0.98 cm LVIDd: 5.2 cm LVIDs: 3.3 cm LVPWd: 0.99 cm FS: 35.8 % Ao root diam: 4.2 cm Ao root area: 14.2 cm2 LA dimension: 2.9 cm LVOT diam: 2.1 cm EDV(MOD-A4C): 94. 2 ml ESV(MOD-A4C): 41.5 ml LVOT area: 3.6 cm2 EF(MOD-A4C): 56. 0 % EDV(MOD-A2C): 80.5 ml ESV(MOD-A2C): 30.9 ml EDV(MOD-bp): 87.5 ml EF(MOD-A2C): 61.7 % ESV(MOD-bp): 38. 6 ml EF(MOD-bp): 55.9 % LAV(MOD-A2C): 47.0 ml LAV(MOD-A4C): 43.0 ml EDV (MOD-bp) I ndex: 40.7 ml/m2 LAV(MOD-bp): 44.6 ml LAV(MOD-bp) Indexed: 20.8 ml/m2 ESV (MOD-bp) Index: 18.0 ml/m2 RWT: 0.38 cm TAPSE (>1.6): 1.9 cm Doppler Measurements MV E max mary kate: 96.6 cm/sec MV V2 max: 131.7 cm/sec MV max P.9 mmHg MV V2 mean: 80.2 cm/sec MV mean P.1 mmHg MV V2 VTI: 10.8 cm MVA(VTI): 4.6 cm2 MV dec time: 0.06 sec Ao V2 max: 117. 4 cm/sec Ao max P.5 mmHg Ao V2 mean: 72.2 cm/sec Ao mean P.5 mmHg Ao V2 VTI: 12.4 cm LUIS ALBERTO(I,D): 4.0 cm2 LUIS ALBERTO(V,D): 3.2 cm2 LV V1 max P.5 mmHg SV(LVOT): 49. 9 ml LV V1 mean P.1 mmHg LV V1 max: 106.6 cm/sec LV V1 mean: 65.7 cm/sec LV V1 VTI: 14.0 cm PA V2 max: 90.2 cm/sec TR max mary kate: 269.8 cm/sec PA max P.3 mmHg TR max P.1 mmHg PA V2 mean: 57.8 cm/sec RVSP(TR): 37 .1 mmHg PA mean P.6 mmHg PA V2 VTI: 9.5 cm RAP systole: 8.0 mmHg LUIS ALBERTO Index (I,D ): 1.9 LUIS ALBERTO Index (V,D): 1.5 Dimensionless I ndex: 0.91 Zabrina Valdez NII CV ECHO ORDERABLES Performing Organization Address City/State/ZIP Code Phon e Number ISCV Gastrointestinal Multiplex Panel (07/08/2022 1:01 PM HAND ROLLER)Only the most recent of 2 resultswithin the time period is included. Component Value Ref Range Test Analysis Performed Pathologis t Method Time At Signature Campylobacter Not Detected Not [facility] Detected [facility] C difficile DNA (GI Refer to [facility] Multi Panel) separate C. [place] difficile DNA CANCER Assay for CENTER results Plesiomonas Not Detected Not [facility] shigelloides Detected [facility] Salmonella Not Detected Not [facility] Detected [facility] Vibrio Not Detected Not [facility] Detected [facility] Vibrio cholerae Not Detected Not [facility] Detected [facility] Yersinia Not Detected Not [facility] enterocolitica Detected [facility] Enteroaggregative E. Not Detected Not [facility] coli (EAEC) Detected [facility] Enteropathogenic E. Not Detected Not [facility] coli (EPEC) Detected [facility] Enterotoxigenic E. Not Detected Not [facility] coli (ETEC) Detected [facility] Shiga-like Not Detected Not [facility] toxin-producing E. Detected [facility] ([facility] CANCER CENTER E. coli O157 Not Not GABRIEL GARCIA Applicable Detected [facility] Shigella/Enteroinvas Not Detected Not GABRIEL GARCIA kenia E. coli (EIEC) Detected [facility] Cryptosporidium Not Detected Not [place] Detected [facility] Cyclospora Not Detected Not GABRIEL GARCIA cayetanensis Detected [facility] Entamoeba Not Detected Not GABRIEL GARCIA histolytica Detected [facility] Giardia lamblia Not Detected Not [place] MD Detected [facility] Adenovirus F 40/41 Not Detected Not [place] MD Detected [facility] Astrovirus Not Detected Not [place] MD Detected [facility] Norovirus GI/GII Not Detected Not [place] MD Detected [facility] Rotavirus A Not Detected Not GABRIEL MD Detected [facility] Sapovirus (I, II, IV Not Detected Not GABRIEL MD and V) Detected [facility] Specimen Anatomical Collection Method Collection Time Receive d Time (Source) Location / / Volume Laterality Stool 07/08/2022 1:01 PM 2 4:07 HAND ROLLER PM HAND ROLLER Narrative GABRIEL GARCIA [facility] - 2 7:10 PM HAND ROLLER add-on 07/08/2022 2:21:29 PM HAND ROLLER Zabrina Valdez APRN MICROBIOLOGY - GENERAL ORDER ORTIZ Performing Organization Address City/State/ZIP Code Phon e Number [place] [facility] Unless otherwise noted, [place] [address] [place] all lab tests performed by: Division of Pathology and Laboratory Medicine [address] [place] [address] Gastrointestinal Multiplex Panel Path Review (07/08/2022 1:01 PM HAND ROLLER)Only the most recent of2 resultswithin the time period is included. [facility] gist Method Time Signature [place] Reviewed and Electronically signed by Pathologist: GABRIEL AYOUB MD #[id number] [facility] Comment: Performed by real-time PCR methodology. This assay detects the presence of nucleic acid (DNA or RNA) for the pathogens reported. A result of "Not Detected" does not exclude the possibility of the presen ce of one or more of the pathogens at ss than the detection limits of this assay. The results of the GI Panel should be co nsidered presumptive. Clinical correlation is recommended. MD Kate LOWE [id number] Dictated by: MD Kate LOWE [id number] Dictated Date/Time: 07.09.2022 9:[address] Transcribed Date/Time: 07.09.2022 9:53 AM HAND ROLLER Electronically Signed By: MD Kate PERES [id number] on 07.09.2022 9:53 AM C Specimen Anatomical Collection Method Collection Time Receive d Time (Source) Location / / Volume Laterality Stool 07/08/2022 1:01 PM 9:11 HAND ROLLER PM HAND ROLLER Zabrina Valdez NII LAB BLOOD ORDERABLES Performing Organization Address City/State/ZIP Code Phon e Number [facility] Unless otherwise noted, [place], [place] [id number] [place] [address] all lab tests performed by: Division of Pathology and Laboratory Medicine [facility] [place] Clostridium Difficile DNA Path Review (07/08/2022 1:01 PM HAND ROLLER)Only the most recent of2 resultswithin the time period is included. Component Value Ref Test Analysis Performed At [facility] gist Range Method Time Signature C diff DNA [place] Reviewed and Electronically signed by Pathologist: [place] MD MOMO AYOUB MD #[id number] [facility] Comment: C. difficile Toxin DNA (Primary Method) is a nucleic acid amplification test (NAAT) intended for the qualitative detection of bacterial DNA from toxigenic strains of Clostridium difficile. Reference Range: DNA Negative Clostridium Difficile Toxin Assay (Refle x Method) performed by rapid immunoassay for the detection of Clostridium difficile toxins A and B in stool specimens. Reference Range: Negative When invalid results are obtained by eit her the primary or reflex method, a new specimen should be collected for repeat testing. MD Kate LOWE [id number] Dictated by: MD Kate LOWE [id number] Dictated Date/Time: 07.09.2022 20:15 PM HAND ROLLER Transcribed Date/Time: 07.09.2022 20:15 PM HAND ROLLER Electronically Signed By: MD Kate PERES [id number] on 07.09.2022 20:15 PM Specimen Anatomical Collection Method Collection Time Receive d Time (Source) Location / / Volume Laterality Stool 07/08/2022 1:01 PM 2 HAND ROLLER 10:01 AM HAND ROLLER Zabrina Valdez APRN MICROBIOLOGY - GENERAL ORDER ORTIZ Performing Organization Address City/[facility]/ZIP Code Phon e Number [facility] Unless otherwise noted, [address] all lab tests performed by: Division of Pathology and Laboratory Medicine [facility] [address] Clostridium Difficile DNA Assay (07/08/2022 1:01 PM HAND ROLLER)Only the most recent of2 resultswithin the time period is included. Patholo gist Method Time Signature C difficile DNA Negative Negative [facility] C difficle Toxin Test Not Negative [facility] EIA Performed [facility] C difficile C. difficile [place] Interpretation DNA [place] detection CANCER was negative CENTER making C. difficile infection highly unlikely in this patient. EIA not performed. Specimen Anatomical Collection Method Collection Time Receive d Time (Source) Location / / Volume Laterality Stool 07/08/2022 1:01 PM 2 3:12 HAND ROLLER PM HAND ROLLER Zabrina Valdez APRN MICROBIOLOGY - GENERAL ORDER ORTIZ Performing Organization Address City/[facility]/ZIP Code Phon e Number [facility] Unless otherwise noted, [address] all lab tests performed by: Division of Pathology and Laboratory Medicine [facility] [address] (ABNORMAL) Lactic Acid, Arterial (07/08/2022 2:40 AM HAND ROLLER) P athologist Signature Lactate, 2.2 (H) 0.4 - 0.8 [facility] arterial mmol/L CAN[facility]ER CENTER Specimen Anatomical Collection Method Collection Time Receive d Time (Source) Location / / Volume Laterality Blood 07/08/2022 2:40 AM 2 2:45 HAND ROLLER AM HAND ROLLER Laura Martínez APRN LAB BLOOD ORDERABLES Performing Organization Address City/[facility]/ZIP Code Phon e Number [facility] Unless otherwise noted, [address] all lab tests performed by: Division of Pathology and Laboratory Medicine [facility] [address] (ABNORMAL) ABG (07/08/2022 2:40 AM HAND ROLLER)Only the most recent of2 resultswithin the time period is included. P athologist Signature pH Art 7.52 (H) 7.35 - 7.45 [facility] Comment: Results are corrected for a bod y temp of 37C. pCO2 Art 27.1 (L) 35.0 - 48.0 mmHg [place] MD SANYA Zuniga [facility] pO2 Art 67 (L) 83 - 108 mmHg [place] MD QUINTANILLA [facility] HCO3 Art 22 21 - 28 mmol/L [facility] Base Excess Art 0 -2 - 3 mmol/L [place] MD CAB[facility]A [facility] O2 Sat Art 96 95 - 99 % [facility] ER CENTER Specimen Anatomical Collection Method Collection Time Receive d Time (Source) Location / / Volume Laterality Blood 07/08/2022 2:40 AM 2:45 HAND ROLLER AM HAND ROLLER Laura Martínez APRN LAB BLOOD ORDERABLES Performing Organization Address City/State/ZIP Code Phon e Number [facility] Unless otherwise noted, [address] all lab tests performed by: Division of Pathology and Laboratory Medicine [address] ARTL CATHJ/CANNULJ MNTR/TRANSFUSION SPX PRQ, HC ARTERIAL LINE FOR BP MON, HC U/S GUID FOR VASC ACCESS (07/08/2022 2:25 AM HAND ROLLER) Narrative Laura Martínez APN - 07/08/2022 2:25 AM HAND ROLLER Laura Martínez APN 07/08/2022 2:28 AM Arterial line insertion Date/Time: 07/08/2022 2:25 AM Consent Obtained: written Consent given by: patient Risk discussed: bleeding, infection, maryjo n, ischemia and repeat procedure [place] Protocol completed: yes Provider Information: Performed by: Laura Martínez APN Authorized by: Laura Martínez APN Indication(s) for Procedure: Need for frequent arterial blood gas isaiah pling, need for invasive hemodynamic monitoring and septic shock Allergies: -- Chlorhexidine Gluconate -- Rash Pre-Procedure: Patient Condition: patient is awake. Is the patient on full dose anticoagulat ion: no. Anesthesia: Anesthesia: local infiltration Local Anesthetic: lidocaine 1% without e pinephrine Anesthetic total: 2 mL Sedation: Patient sedated: no Procedure Description: Equipment: Red Stamp Kit [id number] Sterile towels, sterile gown, sterile gl oves Pressure transducer Sterile dressing pack with Biopatch Needle gauge: 20 Procedure Details: Equipment and pressure transducer prepar ed and ready Patient positioned appropriately for pro cedure Maximal barriers applied (hat, mask, karon rile gown, sterile gloves, sterile drape. Hand hygiene performed by all persons pe rforming/assisting with insertion. Location: left radial Preparation: Patient was prepped and jimmy ped in the usual sterile fashion. The area was prepped with chlorhexidine. Ultrasound guidance: yes Sterile ultrasound techniques: sterile g el and sterile probe covers were used Aidtya's test normal?: yes The artery was accessed on attempt numbe r 1 with return of red pulsatile blood. Seldinger technique used?: yes Transducer: waveform confirmed Guide wire removed?: yes Post-Procedure: Post Procedure: line sutured, secured wi th tape, sterile dressing applied and biopatch applied Neurovascular exam: unchanged Patient tolerance: patient tolerated the procedure well Specimen(s) removed: no specimen collect ed Estimated Blood Loss: none Complications: no immediate complication s Assessment/Plan: continue invasive blood pressure monitoring and blood gas monitoring as needed Disposition: remain in ICU bed Debrief performed?: yes Laura Martínez APRN PROCEDURE/MINOR SURGICAL ORD ERABLES (ABNORMAL) Hemoglobin (07/07/2022 8:28 AM HAND ROLLER) P athologist Signature Hgb 8.6 (L) 14.0 - 18.0 [facility] gm/dL CAN[facility]ER CENTER Specimen Anatomical Collection Method Collection Time Receive d Time (Source) Location / / Volume Laterality Blood (Arm, 07/07/2022 8:28 AM 2 8:34 Left) HAND ROLLER AM HAND ROLLER Mattie Wood APRN LAB BLOOD ORDERABLES Performing Organization Address City/State/ZIP Code Phon e Number [facility] Unless otherwise noted, [place] [address] CENTER all lab tests performed by: Division of Pathology and Laboratory Medicine [address] XR Chest 1 View Portable (07/07/2022 7:58 AM HAND ROLLER)Only the most recent of2 resultswithin the time period is included. Anatomical Region Laterality Modality Chest Digital Radiography Specimen (Source) Anatomical Collection Method Collection Time Re ceived Time Location / / Volume Laterality 07/07/2022 8:24 AM HAND ROLLER Impressions 07/07/2022 8:25 AM HAND ROLLER No acute findings radiographically. 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 Findings: The lungs are clear. There is no pleural effusion or pneumothorax. There is no mediastinal or hilar adenopathy. Cardiac silhouette is normal. Right PICC terminates in SVC. Procedure Note Alan Encarnacion MD - 07/07/2022Formelian ulloa of this note might be different from the original. 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 Findings: The lungs are clear. There is no pleural effusion or pneumothorax. There is no mediastinal or hilar adenopathy. Cardiac silhouette is normal. Right PICC terminates in SVC. IMPRESSION: No acute findings radiographically. Sushila Billy MD IMG DIAGNOSTIC IMAGING ORDER ORTIZ (ABNORMAL) VBG+ (07/07/2022 7:33 AM HAND ROLLER) P athologist Signature V Na 130 (L) 136 - 146 [facility] mEq/L [facility] Comment: Repeated and verified. 07/07/20 7:50:43 AM HAND ROLLER KB V K 3.7 3.4 - 4.5 mEq/L [facility] V Cl 103 98 - 106 mEq/L [facility] V Gluc 92 70 - 105 mg/dL [facility] V Hgb 6.1 (C) 13.5 - 17.5 g/dL [facility] V HCT 19 (L) 42 - 52 % [facility] V Lactate 10.1 (C) 0.5 - 1.6 mmol/L [facility] V Ion Ca 1.06 (L) 1.15 - 1.29 mmol/L [place] MD SEPULVEDA [facility] pH Abhilash 7.44 (H) 7.32 - 7.43 HI [facility] Comment: Results are corrected for a bod y temp of 37C pCO2 Abhilash 22.1 (L) 41.0 - 51.0 mmHg HI MD SANYA Zuniga [facility] CENTER pO2 Abhilash 72 mmHg HI [facility] R [place] HCO3 Abhilash 15 (L) 21 - 28 mmol/L [facility] V Anion Gap 12 7 - 16 mmol/L [facility] Base Excess Abhilash -8 (L) -2 - 3 mmol/L HI MD [facility]A [facility] O2 Sat Abhilash 97 % [facility] ER CENTER Specimen Anatomical Collection Method Collection Time Receive d Time (Source) Location / / Volume Laterality Blood 07/07/2022 7:33 AM 2 7:41 HAND ROLLER AM HAND ROLLER Sushila Billy MD LAB BLOOD ORDERABLES Performing Organization Address City/State/ZIP Code Phon e Number [facility]CER Unless otherwise noted, [place], [place] [id number] [place] [address] all lab tests performed by: Division of Pathology and Laboratory Medicine [address] [place] [address] Troponin T (In-House) (07/07/2022 7:33 AM HAND ROLLER) athologist Signature Troponin T 8 <=18 ng/L [facility] Comment: < 19 ng/L Suggest retest at 3 to 6 hours later to rule out myocardial infarction >= 19 to <=52 ng/L Pos sible myocardial injury. Suggest retest at 3 hours. - a change of < 20 ng/L, retest at 6 hours - a change of >= 20 ng/L, suggestive of myocardial infarction > 52 ng/L Suggestive of myocardial infarction Critical value will be reported when cTn T is > 52 ng/L and only reported for the first in a series. Hemolyzed specimens with Hemolysis Index >100 (100 mg/dl or moderate hemolysis) may cause interferences and falsely low results. Specimen Anatomical Collection Method Collection Time Receive d Time (Source) Location / / Volume Laterality Blood 07/07/2022 7:33 AM 2 7:56 HAND ROLLER AM HAND ROLLER Sushila Billy MD LAB BLOOD ORDERABLES Performing Organization Address City/State/ZIP Code Phon e Number [facility] CANCER Unless otherwise noted, [address] all lab tests performed by: Division of Pathology and Laboratory Medicine [address] [place] [address] CKMB (07/07/2022 7:33 AM HAND ROLLER) [place] [facility] CK MB <2.0 <=10.4 [facility] ng/mL CANCER CENTER Specimen Anatomical Collection Method Collection Time Receive d Time (Source) Location / / Volume Laterality Blood 07/07/2022 7:33 AM 7:50 HAND ROLLER AM HAND ROLLER Sush[place] Billy MD LAB BLOOD ORDERABLES Performing Organization Address City/[facility] Phon e Number [facility]CER Unless otherwise noted, [address] all lab tests performed by: Division of Pathology and Laboratory Medicine [address] [place] [address] (ABNORMAL) Complete Blood Count w/o Differential (07/07/2022 4:20 AM HAND ROLLER) athologist [facility] WBC 1.4 (L) 4.0 - 11.0 [facility] RBC 2.82 (L) 4.50 - HI MD 6.00 M/[facility] Hgb 9.2 (L) 14.0 - HI MD 18.0 gm/dL [facility] Hct 26.1 (L) 40.0 - [place] MD 54.0 % [facility] MCV 93 82 - 98 [facility] MCH 32.6 (H) 27.0 - [place] MD 31.0 pg [facility] MCHC 35.2 31.0 - [place] MD 36.0 gm/dL [facility] RDW-SD 65.8 (H) 35.1 - HI MD 46.3 [facility] RDW-CV 21.6 (H) 12.0 - HI MD 15.[address] [facility] Platelet count 185 140 - 440 [facility] MPV 9.9 4.0 - 10.4 [facility] INRBC 0.0 <=0.0 % [facility] Comment: The INRBC (instrument NRBC) value reflec ts the enumeration of nucleated red blood cells contained i n a 200uL sample of whole blood analyzed by the instrumen t. This value may differ from the NRBC value reported in a manual differential, which is based on a 100 cell differentia l. Specimen Anatomical Collection Method Collection Time Receive d Time (Source) Location / / Volume Laterality Blood 07/07/2022 4:20 AM 2 4:33 HAND ROLLER AM HAND ROLLER Dana Corbett MD LAB BLOOD ORDERABLES Performing Organization Address City/State/ZIP Code Phon e Number [facility] Unless otherwise noted, [place] [address] [place] all lab tests performed by: Division of Pathology and Laboratory Medicine [facility] [place] HECTOR DIAGNOSTIC BONE MARROW BIOPSIES & ASPIRATIONS (06/25/2022 1:19 PM HAND ROLLER) Specimen (Source) Anatomical Location Collection Method / Collectio n Time Received Time / Laterality Volume Bone marrow specimen (specimen) Narrative [facility] - 2 1:19 PM HAND ROLLER ANA MARIA Hayes 06/25/2022 4:27 PM Procedure: Bone marrow aspiration/biopsy Date/Time: 06/25/2022 1:19 PM Provider Information: Performed by: ANA MARIA Hayes Authorized by: ANA MARIA Cat Drone Operator present: yes Drone Operator: RT Milagros medical imaging 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 n ot needed 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 Post-procedure diagnosis: unchanged Indication: Indication: evaluation of disease status Anesthesia: Anesthesia: local infiltration Patient anesthetized by: advanced practi ce provider Local anesthetic: lidocaine 1% without e pinephrine Anesthetic total (ml): 20 Sedation: Patient sedated?: patient not sedated Aspirate Site(s): Laterality: left Site location: posterior iliac crest Instrument(s) used: [place] needle Instruments placed by: advanced practice provider Biopsy Site(s): Laterality: left Site location: posterior iliac crest Instrument(s) used: Ben needle Instruments placed by: advanced practice provider Dressing: Dressing: compression bandage Post-Procedure Patient Assessment: Patient tolerance: well Estimated blood loss: none Complications/Observations: no complicat ions Discharge/Disposition: Discharge instructions: verbal and patie nt verbalized understanding Patient discharged to: discharge to home Disposition mode: ambulatory Sample Disposition: Testing performed: cytogenetics, flow cy tometry and molecular Research samples(s): yes Protocol #: Adeno clonoSEQ Aspirate volume obtained (mL) - left: 23 Visual assessment for aspirate specimen adequacy - left: particles Visual assessment for biopsy specimen ad equacy (cm) - left: 1 Biopsy specimen integrity - left: whole Comments: Abelardo Mendoza APN, was in training and st arted the procedure. I stepped in and completed aspiration and biopsy. Patient was identified by name, MRN, and . Patient tolerated the procedure well. After the procedure, p ressure was held, hemostasis was achieved, and pressure bandage was appli ed. Patient was instructed to keep the area dry for 48 hours, no showe rs/baths, and verbalized understanding. QUICK CLOT Magalis RODGERS PROCEDURE/MINOR SURGICAL ORD ERABLES Performing Organization Address City/State/ZIP Code Phon e Number [facility] Unless otherwise noted, [place] [address] [place] all lab tests performed by: Division of Pathology and Laboratory Medicine [facility] X-ray Chest 2 Views (06/25/2022 7:16 AM HAND ROLLER) Anatomical Region Laterality Modality Chest Digital Radiography Specimen (Source) Anatomical Collection Method Collection Time Re ceived Time Location / / Volume Laterality 06/25/2022 8:07 AM HAND ROLLER Impressions 06/25/2022 8:08 AM HAND ROLLER Clear lungs. Narrative 06/25/2022 8:08 AM HAND ROLLER FULL RESULT: Examination: Chest, 2 views, 06/25/2022 7 :16 AM Clinical History: Acute lymphoid leukemi a Indication: Other:, prior chemo Comparison: 06/04/2022 Technique: Posteroanterior, lateral, and dual-energy radiographs of the chest. Findings: The lungs are clear. No mediastinal or h ilar adenopathy. No pleural effusions. The right PICC terminates in SVC junction with the right brachiocephalic vein. No pneumothorax. Procedure Note Aide Snyder MD - 06/25/2022Format ting of this note might be different from the original. FULL RESULT: Examination: Chest, 2 views, 06/25/2022 7 :16 AM Clinical History: Acute lymphoid leukemi a Indication: Other:, prior chemo Comparison: 06/04/2022 Technique: Posteroanterior, lateral, and dual-energy radiographs of the chest. Findings: The lungs are clear. No mediastinal or h ilar adenopathy. No pleural effusions. The right PICC terminates in SVC junction with the right brachiocephalic vein. No pneumothorax. IMPRESSION: Clear lungs. Magalis RODGERS IMG DIAGNOSTIC IMAGING ORDER ORTIZ EKG, 12-Lead (Scheduled) (06/25/2022) Specimen (Source) Anatomical Location Collection Method / Collectio n Time Received Time / Laterality Volume Narrative This result has an attachment that is no t available. Magalis RODGERS ECG ORDERABLES Performing Organization Address City/State/ZIP Code Phon e Number [facility] COVID-19 (SARS-CoV-2)Asymptomatic-LT (06/11/2022 9:01 AM HAND ROLLER) [facility] Method Time Signature COVID19 Not Detected Not Detected GABRIEL GARCIA (SARS-CoV-2) [facility] COVID19 SARS Inpatient GABRIEL GARCIA Indication Admission [facility] Covid 19 See Note GABRIEL GARCIA Comment [facility] Comment: The ford SARS-CoV-2 nucleic acid test f or use on the ford Michelle System is a real-time RT-PCR assay intended for the qualitative detection of SARS-CoV-2 (COVID-19) viral RNA in nasopharyngeal swabs from either individuals suspected of COVID-1 9 by their healthcare provider or from any individu al, including individuals without symptoms or other reasons to suspect COVID-19. A fact sheet for patients provided by the nursing student ([employer]) can be reviewed at: https://www.fda.gov/media/849621/felipe pa A fact sheet for Health Care providers is provided by the nursing student ([employer]) and can be reviewed at: https://www.fda.gov/media/308225/download Results must be interpreted within the c ontext of all relevant clinical and laboratory findings and should not form the sole basis for a diagnosis or treatment decision. Positive results do not rule out bacterial infection or co- infection with other viruses. Negative results do not preclud e SARS-CoV-2 infection and must be combined with clinical observations, patient history, and/or epidemiological information. This assay has been authorized by the [facility] for use only under Emergency Use Authorization (EUA) in laboratories that have been CLIA-certified to perform moderate-complexity and high-complexity tests. [facility], CLIA Accreditation #[id number] [place] CAP Accreditation #[id number], verified the performance characteristics of this assay. Internal controls are used to monitor all stages of the test process. Specimen (Source) Anatomical Collection Method Collection Time Re ceived Time Location / / Volume Laterality Nasopharyngeal Swab 06/11/2022 9:01 112 09/2021 AM HAND ROLLER 9:22 AM HAND ROLLER Karime Lujan MD MICROBIOLOGY - GENERAL ORDER ORTIZ Performing Organization Address City/State/ZIP Code Phon e Number [facility] Unless otherwise noted, [address] all lab tests performed by: Division of Pathology and Laboratory Medicine Cristine Deras MTX 48 HR Post-Infusion (06/08/2022 11:04 AM HAND ROLLER) P athologist Signature MTX 48Hr <0.04 <=0.99 [facility] Comment: Methotrexate levels are unreliable for s pecimens collected within 48 hours following Glucarpidase (Voraxaze) administration as it can result in an overestimation of methotrexate levels due to interference of inactive metabolite with immunoassay. Analytical Method:Immunoassay Platform Method:Ford c502 Methotrexate 48HR Dose Date 06/06/2022 [facility] Methotrexate 48HR Dose Time [address] Specimen Anatomical Collection Method Collection Time Receive d Time (Source) Location / / Volume Laterality Blood 06/08/2022 11:04 06/08/2022 AM HAND ROLLER 11:20 AM HAND ROLLER Dougie Lyons MD LAB BLOOD ORDERABLES Performing Organization Address City/[facility]/ZIP [facility] Phon e Number [facility] Unless otherwise noted, [address] all lab tests performed by: Division of Pathology and Laboratory Medicine Cristine Deras after 06/08/2022 Insurance Payer Benefit Plan / Subscriber ID Effective Dates Phone Addre ss Type Group MEDICARE MEDICARE PART [id number] 2022-Sherrill [phone] DICK Tin[place]ero Medicare A AND B t 2 SOLUTIONS [address] [place] [address] (Work) [id number] [place] Personal/Family Self 1970 [address] (Home) [place] [address] [place] Transplant Self [address] (Home) [place] [address] (Work) [place] Dental Self 1970 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 Relationship Specialty Start Date End Date Windy Lyons PCP - General Leukemia 06/22/20 MD Dougie [address] [place] [id number] Ana María Mills MD Consulting Physician Ophthalmology 05/01/[address] [place] [phone] Christiano Baez DDS Consulting Physician Dental Oncology 02/27/[address] [place] [phone] Jamari Church III, MD Consulting Physician Urology 04/15/[address] [place] [id number] Lazarus Martínez MD Consulting Physician Urology 02/06/[address] [place] [id number] Flavia Hawkins MD Consulting Physician Dermatology 08/21/[address] [place] [phone] Odin Call MD Consulting Physician Stem Cell Transplant 06/02/[address] [place] [id number] Denver Coleman MD Consulting Physician Internal Medicine 03/29/[address] [place] [id number] Garrett Goldberg MD Consulting Physician Colorectal Surgery 07/03/[address] [place] [id number] Zohreh Dejesus MD Consulting Physician Neuro-Oncology 05/07/[address] [place] [id number]
--- NOTE | 2023-06-08 16:42 | EDPHYS ---
Physician Documentation [facility] Name: Juan Luis Duvall Age: 52 yrs Sex: Male : 1970 Arrival Date: 06/08/2023 Time: 16:24 Bed IW1 Private MD: ED Physician Srikanth Amor HPI: 06/08 17:08 This 52 yrs old Male presents to ER via Wheelchair with complaints of Ear Pain.jh7 17:08 The patient presents with pain, that is acute. jh7 17:08 The complaints affect the left ear. jh7 17:08 Onset: The symptoms/episode began/occurred 1 week(s) ago. Associated signs and jh7 symptoms: Pertinent negatives: cough, fever, nausea, sinus trouble, sore throat, vomiting. Historical: - Allergies: 17:10 No Known Drug Allergies; hb - PMHx: 17:10 ALL; hb ROS: 17:08 Constitutional: Negative for fever, chills, and weight loss, Eyes: Negative for injury, jh7 pain, redness, and discharge, Neck: Negative for injury, pain, and swelling, Cardiovascular: Negative for chest pain, palpitations, and edema, Respiratory: Negative for shortness of breath, cough, wheezing, and pleuritic chest pain, Abdomen/GI: Negative for abdominal pain, nausea, vomiting, diarrhea, and constipation, MS/Extremity: Negative for injury and deformity, Skin: Negative for injury, rash, and discoloration, Neuro: Negative for headache, weakness, numbness, tingling, and seizure, 17:08 ENT: Positive for ear pain, 17:08 All other systems are negative, Exam: 17:08 Constitutional: This is a well developed, well nourished patient who is awake, alert, jh7 and in no acute distress. Head/Face: Normocephalic, atraumatic. Cardiovascular: Regular rate and rhythm with a normal S1 and S2. No gallops, murmurs, or rubs. Normal PMI, no JVD. No pulse deficits. Respiratory: Lungs have equal breath sounds bilaterally, clear to auscultation and percussion. No rales, rhonchi or wheezes noted. No increased work of breathing, no retractions or nasal flaring. Abdomen/GI: Soft, non-tender, with normal bowel sounds. No distension or tympany. No guarding or rebound. No evidence of tenderness throughout. Skin: Warm, dry with normal turgor. Normal color with no rashes, no lesions, and no evidence of cellulitis. MS/ Extremity: Pulses equal, no cyanosis. Neurovascular intact. Full, normal range of motion. Neuro: Awake and alert, GCS 15, oriented to person, place, time, and situation. Motor strength 5/5 in all extremities. Sensory grossly intact. Normal gait. 17:08 ENT: TM's: bulging, on the left, erythema, that is marked, on the left, Vital Signs: 17:08 BP 135 / 79; Pulse 75; Resp 16; Temp 99.1(O); Pulse Ox 100% ; Weight 90.72 kg; Height 5 hb ft. 11 in. ; Pain 9/10; 17:08 Body Mass Index 27.89 (90.72 kg, 180.34 cm) hb 17:08 Pain Scale: Adult hb MDM: 16:35 Patient medically screened. [facility] 17:20 Differential diagnosis: otitis media, otitis externa, acute otalgia, cerumen impaction. [facility] Data reviewed: vital signs, nurses notes. Counseling: I had a detailed discussion with the patient and/or guardian regarding the historical points, exam findings, and any diagnostic results supporting the discharge/admit diagnosis, to return to the emergency department if symptoms worsen or persist or if there are any questions or concerns that arise at home. Response to treatment: the patient's symptoms have mildly improved after treatment. Administered Medications: 17:18 Drug: Ketorolac IM 30 mg IM once Route: IM; Site: right deltoid; hb Disposition Summary: 06/08/23 16:42 Discharge Ordered Notes: Location: Home [facility] Problem: new [facility] Symptoms: are unchanged [facility] Condition: Stable [facility] Diagnosis - Acute serous otitis media, left ear [facility] Followup: [facility] - With: Private Physician - When: 2 - 3 days - Reason: Recheck today's complaints Discharge Instructions: - Discharge Summary Sheet [facility] - Otitis Media, Adult [facility] Forms: - Medication Reconciliation Form [facility] - Thank You Letter [facility] - Antibiotic Education [facility] - Patient Portal Instructions [facility] - Leadership Thank You Letter [facility] Prescriptions: - Amoxicillin 875 mg Oral Tablet - take 1 tablet ORAL route every 12 hours for 10 days; 20 tablet; Refills: 0, jh7 Product Selection Permitted Signatures: Ericka Layne, RN RN Mattie Kaba FNP BARIATRIC PHYSICIAN jh7 Corrections: (The following items were deleted from the chart) 17:33 17:08 The complaints affect the left ear, jh7 jh7
--- OUTSIDE RECORDS SUMMARY | 2023-06-08 16:44 | XMS REPORT | Continuity of Care Document ---
:1970 Author Organization [facility] Address [address] [facility] [id number] Care Team Providers Name Role Phone [phone] Primary Care Physician Unavailable RADHIKA OCONNOR Attending Clinician Unavailable CAITLIN JACKSON Attending Clinician Unavailable SYSTEM, PROVIDER NOT IN Attending Clinician Unavailable GUANAKO MULLIGAN Attending Clinician Unavailable SAUL MOSLEY Attending Clinician Unavailable SHELLI OSEGUERA Attending Clinician Unavailable HALINA TEJADA III Attending Clinician Unavailable SINDHU THORPE Attending Clinician Unavailable LASHON WILLIS Attending Clinician Unavailable YA BAR Attending Clinician Unavailable KRISSY BEATTY Attending Clinician Unavailable BRITTNEY AGUILERA Attending Clinician Unavailable RAUL IVORY Attending Clinician Unavailable RAMU NASH Attending Clinician Unavailable EVERTON FAY Attending Clinician Unavailable KELLY LOPEZ Attending Clinician Unavailable JAMSHID MARINO Attending Clinician Unavailable ALCIDES VARNER Attending Clinician Unavailable ELSY SPANN Attending Clinician Unavailable ALAN CERDA Attending Clinician Unavailable MIGUEL MCGINNIS Attending Clinician Unavailable DESTINY GILL Attending Clinician Unavailable RAMU COLLINS Attending Clinician Unavailable ANAMIKA MOORE Attending Clinician Unavailable CHANDANA KHANNA Attending Clinician Unavailable JOSEY ROLDAN Attending Clinician Unavailable KEISHA BOLANOS Attending Clinician Unavailable FARZANEH RIVERA Attending Clinician Unavailable GT RIOS Attending Clinician Unavailable RAMU NICHOLE Attending Clinician Unavailable TONIA EASTON Attending Clinician Unavailable NEHEMIAS RAJAN Attending Clinician Unavailable ALEXI BECERRA Attending Clinician Unavailable HENRY CAMERON Attending Clinician Unavailable EDILBERTO DAVIS Attending Clinician Unavailable MONICA RIVERA Attending Clinician Unavailable JEAN MARIE JARAMILLO Attending Clinician Unavailable FERNY KIRK Attending Clinician Unavailable JAYLAN DONALDSON Attending Clinician Unavailable SR SANTYDAJody Attending Clinician Unavailable DARIO ALEXANDRA Attending Clinician Unavailable YARELI ARZATE Attending Clinician Unavailable JAY HICKS Attending Clinician Unavailable NIKHIL RIVERA Attending Clinician Unavailable FRANCIS SERRANO Attending Clinician Unavailable ZENIA CAPPS Attending Clinician Unavailable COLTON BURCH Attending Clinician Unavailable CRYSTAL GUTIERREZ Attending Clinician Unavailable KYLIE QUIJANO Attending Clinician Unavailable LEOPOLDO RENDON Attending Clinician Unavailable MIKI MEADE Attending Clinician Unavailable OLIVERIO VENTURA Attending Clinician Unavailable SHAHIDA REAGAN Attending Clinician Unavailable OKSANA DUMONT Attending Clinician Unavailable AMANUEL MEADE Attending Clinician Unavailable JAMAL CANTOR Attending Clinician Unavailable ANDREA SANTANA Attending Clinician Unavailable STEPHANIE MANN Attending Clinician Unavailable CONG KWAN Attending Clinician Unavailable TAMI HAMLIN Attending Clinician Unavailable ROSETTA JAMES Attending Clinician Unavailable ROSAMARIA VELASQUEZ JR Attending Clinician Unavailable JAY UMAÑA Attending Clinician Unavailable CECI MARES Attending Clinician Unavailable MICKIE JEAN-BAPTISTE Attending Clinician Unavailable MIGEUL ANGEL MAGALLON Attending Clinician Unavailable RADHIKA MORENO Attending Clinician Unavailable BEULAH RUSSELL Attending Clinician Unavailable PRISCILLA ROBERTSON Attending Clinician Unavailable RADHIKA OCONNOR Admitting Clinician Unavailable CHRISTOPHER MADERA Admitting Clinician Unavailable FRANCIS SERRANO Admitting Clinician Unavailable ELSY SPANN Admitting Clinician Unavailable Payers Payer Name Policy Type Policy Number Effective Date Expiration Date Tanvi beth MEDICARE PART A [id number] 2022 AND B 00:00:00 Problems This patient has no known problems. Allergies, Adverse Reactions, Alerts Allergy Allergy Status Severity Reaction(s) Onset Inactive Treating Comm ents Source Name Type Date Date Clinician [facility] Active Low Rash 2021-07 MD [facility] 08-12 [facility] 00:00: n E 00 [facility] Active Low Rash 2021-07 MD [facility] 08-12 [facility] 00:00: n E 00 [facility] Active Low Rash 2021-07 MD [facility] 08-12 [facility] 00:00: n E 00 [facility] Active Low Rash 2021-07 MD [facility] 24 [facility] 00:00: n E 00 [facility] Active Low Rash 2021- MD [facility] 08-12 [facility] 00:00: n E 00 [facility] Active Low Rash 2021- MD [facility] 08-12 Anders[facility] 00:00: n E 00 [facility] Active Low Rash 2021- MD [facility] 08-12 [facility] 00:00: n E 00 [facility] Active Low Rash 2021- [facility] 08-12 [facility] 00:00: n E 00 [facility] Active Low Rash 2021- MD [facility] 08-12 [facility] 00:00: n E 00 [facility] Active Low Rash 2021- MD [facility] 08-12 [facility] 00:00: n E 00 [facility] Active Low Rash 2021- MD [facility] 08-12 [facility] 00:00: n E 00 [facility] Active Low Rash 2021- MD [facility] 08-12 [facility] 00:00: n E 00 [facility] Active Low Rash 2021- MD [facility] 08-12 [facility] 00:00: n E 00 [facility] Active Low Rash 2021-1 MD [facility] 08-12 [facility] 00:00: n E 00 [facility] Active Low Rash 2021- MD [facility] 08-12 [facility] 00:00: n E 00 [facility] Active Low Rash 2021-1 MD [facility] 08-12 [facility] 00:00: n E 00 [facility] Active Low Rash 2021- MD [facility] 08-12 [facility] 00:00: n E 00 [facility] Active Low Rash 2021- MD [facility] 08-12 [facility] 00:00: n E 00 [facility] Active Low Rash 2021-1 MD [facility] 08-12 [facility] 00:00: n E 00 [facility] Active Low Rash 2021- MD [facility] 08-12 [facility] 00:00: n E 00 [facility] Active Low Rash 2021- MD [facility] 08-12 [facility] 00:00: n E 00 [facility] Active Low Rash 2021- [facility] 08-12 [facility] GLU[facility] 00:00: n E 00 [facility] Active Low Rash 2021- MD [facility] 08-12 [facility] 00:00: n E 00 [facility] Active Low Rash 2021- [facility] 08-12 [facility] GLU[facility] 00:00: n E 00 [facility] Active Low Rash 2021- MD [facility] 08-12 Anders[facility] GLU[facility] 00:00: n E 00 [facility] Active Low Rash 2021- MD [facility] 08-12 Anders[facility] GLU[facility]AT 00:00: n E 00 [facility] Active Low Rash 2021- MD [facility] 08-12 Anders[facility] GLUCONAT 00:00: n E 00 [facility] Active Low Rash 2021- MD [facility] 08-12 Anders[facility] GLU[facility]AT 00:00: n E 00 [facility] Active Low Rash 2021- [facility]GR[facility]I 08-12 Anders[facility] GLUCONAT 00:00: n E 00 [facility] Active Low Rash 2021- MD [facility] 08-12 Anders[facility] GLU[facility] 00:00: n E 00 [facility] Active Low Rash 2021- MD [facility] 08-12 Anders[facility] GLU[facility] 00:00: n E 00 [facility] Active Low Rash 2021- [facility] 08-12 Anders[facility] GLUCONAT 00:00: n E 00 [facility] Active Low Rash 2021-1 [facility] 08-12 Anders[facility] GLUCONAT 00:00: n E 00 [facility] Active Low Rash 2021- MD [facility] 08-12 Anders[facility] GLU[facility]AT 00:00: n E 00 [facility] Active Low Rash 2021-1 [facility] 08-12 Anders[facility] GLU[facility]AT 00:00: n E 00 [facility] Active Low Rash 2021- MD [facility] 08-12 Anders[facility] GLUCONAT 00:00: n E 00 [facility] Active Low Rash 2021- [facility] 08-12 Anderso GLUCONAT 00:00: n E 00 [facility] Active Low Rash 2021- [facility] 08-12 Anders[facility] GLUCONAT 00:00: n E 00 [facility] Active Low Rash 2021- [facility] 08-12 Anderso GLUCONAT 00:00: n E 00 [facility] Active Low Rash 2021- [facility]I 08-12 Anderso GLUCONAT 00:00: n E 00 [facility] Active Low Rash 2021- [facility]I 08-12 Anders[facility] GLUCONAT 00:00: n E 00 [facility] Active Low Rash 2021- [facility]I 08-12 Anderso GLUCONAT 00:00: n E 00 [facility] Active Low Rash 2021- ID[facility] INGR[facility]I 08-12 Anderso GLUCONAT 00:00: n E 00 [facility] Active Low Rash 2021- [facility]GR[facility]I 08-12 Anderso GLUCONAT 00:00: n E 00 [facility] Active Low Rash 2021-1 [facility] 08-12 Anderso GLUCONAT 00:00: n E 00 [facility] Active Low Rash 2021- [facility] 08-12 Anderso GLUCONAT 00:00: n E 00 [facility] Active Low Rash 2021-1 [facility] 08-12 Anderso GLUCONAT 00:00: n E 00 [facility] Active Low Rash 2021-1 [facility] 08-12 Anderso GLUCONAT 00:00: n E 00 [facility] Active Low Rash 2021-1 [facility] 08-12 Anderso GLUCONAT 00:00: n E 00 [facility] Active Low Rash 2021-1 [facility]GR[facility] 08-12 Anderso GLUCONAT 00:00: n E 00 [facility] Active Low Rash 2-1 [facility] 08-12 Anderso GLUCONAT 00:00: n E 00 [facility] Active Low Rash 2-1 [facility] 08-12 Anderso GLUCONAT 00:00: n E 00 [facility] Active Low Rash 2022-1 [facility] 08-12 Anderso GLUCONAT 00:00: n E 00 [facility] Active Low Rash 2021-1 [facility] 08-12 Anderso GLUCONAT 00:00: n E 00 [facility] Active Low Rash 2021-1 [facility] 08-12 Anderso GLUCONAT 00:00: n E 00 [facility] Active Low Rash 2021- [facility] 08-12 Anderso GLUCONAT 00:00: n E 00 [facility] Active Low Rash 2021-1 [facility] 08-12 Anderso GLUCONAT 00:00: n E 00 [facility] Active Low Rash 2021- [facility]YOS[facility] INGREDI 08-12 Anderso GLUCONAT 00:00: n E 00 [facility] Active Low Rash 2021-1 [facility] 08-12 Anderso GLUCONAT 00:00: n E 00 [facility] Active Low Rash 2021- [facility]GR[facility]I 08-12 Anderso GLUCONAT 00:00: n E 00 [facility] Active Low Rash 2021-1 [facility] 08-12 Anderso GLUCONAT 00:00: n E 00 [facility] Active Low Rash 2021- [facility]I 08-12 Anderso GLUCONAT 00:00: n E 00 [facility] Active Low Rash 2022-1 [facility] 08-12 Anderso GLUCONAT 00:00: n E 00 [facility] Active Low Rash 2021-1 [facility] 08-12 Anderso GLUCONAT 00:00: n E 00 [facility] Active Low Rash 2-1 [facility] 24 Anderso GLUCONAT 00:00: n E 00 [facility] Active Low Rash 2-1 [facility]GREDI 08-12 Anderso GLUCONAT 00:00: n E 00 [facility] Active Low Rash 2-1 [facility]GR[facility]I 24 Anderso GLUCONAT 00:00: n E 00 [facility] Active Low Rash 2-1 [facility]GR[facility]I 08-12 Anderso GLUCONAT 00:00: n E 00 [facility] Active Low Rash 2022-1 [facility] 24 Anderso GLUCONAT 00:00: n E 00 [facility] Active Low Rash 202-1 [facility] 08-12 Anderso GLUCONAT 00:00: n E 00 [facility] Active Low Rash 2022-1 [facility] 08-12 Anderso GLUCONAT 00:00: n E 00 [facility] Active Low Rash 202-1 [facility] 08-12 Anderso GLUCONAT 00:00: n E 00 [facility] Active Low Rash 2021-1 [facility] 08-12 Anderso GLUCONAT 00:00: n E 00 [facility] Active Low Rash 2021-1 [facility] 08-12 Anderso GLUCONAT 00:00: n E 00 [facility] Active Low Rash 2021-1 [facility] 08-12 Anderso GLUCONAT 00:00: n E 00 [facility] Active Low Rash 2021-1 [facility] 08-12 Anderso GLUCONAT 00:00: n E 00 [facility] Active Low Rash 2022-1 [facility] 08-12 Anderso GLUCONAT 00:00: n E 00 [facility] Active Low Rash 2022-1 [facility] 08-12 Anderso GLUCONAT 00:00: n E 00 [facility] Active Low Rash 2022-1 [facility] 08-12 Anderso GLUCONAT 00:00: n E 00 [facility] Active Low Rash 2022-1 [facility] 08-12 Anderso GLUCONAT 00:00: n E 00 [facility] Active Low Rash 2022-1 [facility] 24 Anderso GLUCONAT 00:00: n E 00 [facility] Active Low Rash 2022-1 [facility] 08-12 Anderso GLUCONAT 00:00: n E 00 [facility] Active Low Rash 2022-1 [facility]GR[facility] 24 Anderso GLUCONAT 00:00: n E 00 [facility] Active Low Rash 2022-1 [facility]GR[facility]I 08-12 Anderso GLUCONAT 00:00: n E 00 [facility] Active Low Rash 2-1 [facility] 24 Anderso GLUCONAT 00:00: n E 00 [facility] Active Low Rash 2021-1 [facility]I 08-12 Anderso GLUCONAT 00:00: n E 00 [facility] Active Low Rash 2021-1 [facility]I 08-12 Anderso GLUCONAT 00:00: n E 00 [facility] Active Low Rash 2021-1 [facility]GR[facility]I 08-12 Anderso GLUCONAT 00:00: n E 00 [facility] Active Low Rash 2021- IDINE INGREDI 08-12 Anderso GLUCONAT 00:00: n E 00 [facility] Active Low Rash 2021- IDIYOSHI INGREDI 08-12 Anderso GLUCONAT 00:00: n E 00 [facility] Active Low Rash 2021- IDINE INGREDI 08-12 Anderso GLUCONAT 00:00: n E 00 [facility] Active Low Rash 2021-1 [facility] 08-12 Anderso GLUCONAT 00:00: n E 00 [facility] Active Low Rash 2021- IDINE INGREDI 08-12 Anderso GLUCONAT 00:00: n E 00 [facility] Active Low Rash 2021-1 [facility] INGREDI 08-12 Anderso GLUCONAT 00:00: n E 00 [facility] Active Low Rash 2021-1 [facility]I 08-12 Anderso GLUCONAT 00:00: n E 00 [facility] Active Low Rash 2021-1 [facility]GR[facility]I 08-12 Anderso GLUCONAT 00:00: n E 00 [facility] Active Low Rash 2021-1 [facility] 24 Anderso GLUCONAT 00:00: n E 00 [facility] Active Low Rash 2021-1 [facility] 24 Anderso GLUCONAT 00:00: n E 00 [facility] Active Low Rash 2021-1 [facility]GREDI 24 Anderso GLUCONAT 00:00: n E 00 [facility] Active Low Rash 2021- ID[facility]YOS[facility] INGREDI 24 Anderso GLUCONAT 00:00: n E 00 [facility] Active Low Rash 2021- IDINE INGREDI 24 Anderso GLUCONAT 00:00: n E 00 [facility] Active Low Rash 2021-1 [facility] 08-12 Anderso GLUCONAT 00:00: n E 00 [facility] Active Low Rash 2021-1 [facility]GR[facility] 08-12 Anderso GLUCONAT 00:00: n E 00 [facility] Active Low Rash 2021- [facility]GR[facility]I 08-12 Anderso GLUCONAT 00:00: n E 00 [facility] Active Low Rash 2021- [facility]OS[facility] INGREDI 08-12 Anderso GLUCONAT 00:00: n E 00 [facility] Active Low Rash 2021- [facility] INGREDI 08-12 Anderso GLUCONAT 00:00: n E 00 [facility] Active Low Rash 2021- [facility] INGREDI 08-12 Anders[facility] GLUCONAT 00:00: n E 00 [facility] Active Low Rash 2021- [facility]OS[facility] INGREDI 08-12 Anders[facility] GLUCONAT 00:00: n E 00 [facility] Active Low Rash 2021- [facility]I 08-12 Anderso GLUCONAT 00:00: n E 00 [facility] Active Low Rash 2021-1 [facility] 08-12 Anderso GLUCONAT 00:00: n E 00 [facility] Active Low Rash 2021-1 [facility] 08-12 Anderso GLUCONAT 00:00: n E 00 [facility] Active Low Rash 2021-1 [facility]GREDI 08-12 Anderso GLUCONAT 00:00: n E 00 [facility] Active Low Rash 2021-1 [facility] 24 Anderso GLUCONAT 00:00: n E 00 [facility] Active Low Rash 2021-1 [facility] 24 Anderso GLUCONAT 00:00: n E 00 [facility] Active Low Rash 2-1 [facility]GR[facility] 24 Anderso GLUCONAT 00:00: n E 00 [facility] Active Low Rash 2021-1 [facility]GR[facility] 08-12 [facility] GLUCONAT 00:00: n E 00 [facility] Active Low Rash 2021- MD [facility] 24 Anderso GLUCONAT 00:00: n E 00 [facility] Active Low Rash 2021- [facility]GREDI 08-12 Anderso GLUCONAT 00:00: n E 00 [facility] Active Low Rash 2021-1 MD [facility] 08-12 Anderso GLUCONAT 00:00: n E 00 [facility] Active Low Rash 2021- MD [facility] 08-12 Anderso GLUCONAT 00:00: n E 00 [facility] Active Low Rash 2021- MD [facility] 08-12 Anderso GLUCONAT 00:00: n E 00 [facility] Active Low Rash 2021- MD [facility] 08-12 Anderso GLUCONAT 00:00: n E 00 [facility] Active Low Rash 2021- MD [facility] 08-12 Anderso GLUCONAT 00:00: n E 00 [facility] Active Low Rash 2021- MD [facility] 08-12 Anderso GLUCONAT 00:00: n E 00 [facility] Active Low Rash 2021- MD [facility]EE[facility]GR[facility] 08-12 Anders[facility] GLUCONAT 00:00: n E 00 [facility] Active Low Rash 2021- MD [facility] 08-12 Anderso GLUCONAT 00:00: n E 00 [facility] Active Low Rash 2021-1 MD [facility] 08-12 Anderso GLUCONAT 00:00: n E 00 [facility] Active Low Rash 2021- MD [facility] 08-12 Anders[facility] GLUCONAT 00:00: n E 00 [facility] Active Low Rash 2021-1 [facility]GREDI 08-12 [facility] GLUCONAT 00:00: n E 00 [facility] Active Low Rash 2021- ID[facility]YOS[facility] INGREDI 24 Anders[facility] GLUCONAT 00:00: n E 00 [facility] Active Low Rash 2021-1 MD [facility] 24 Anderso GLUCONAT 00:00: n E 00 [facility] Active Low Rash 2021-1 [facility] INGREDI 08-12 [facility]o GLUCONAT 00:00: n E 00 [facility] Active Low Rash 2021- MD [facility] 08-12 Anderso GLUCONAT 00:00: n E 00 [facility] Active Low Rash 2021- ID[facility] INGREDI 08-12 Anderso GLUCONAT 00:00: n E 00 [facility] Active Low Rash 2021- IDIYOS[facility] INGREDI 08-12 [facility] GLUCONAT 00:00: n E 00 [facility] Active Low Rash 2021- IDINE INGREDI 08-12 Anders[facility] GLUCONAT 00:00: n E 00 [facility] Active Low Rash 2021- IDIYOSHI INGREDI 08-12 Anders[facility] GLUCONAT 00:00: n E 00 [facility] Active Low Rash 2021- MD [facility] 08-12 Anders[facility] GLUCONAT 00:00: n E 00 [facility] Active Low Rash 2021- MD [facility] 08-12 Anderso GLUCONAT 00:00: n E 00 [facility] Active Low Rash 2021- MD [facility] 08-12 Anderso GLUCONAT 00:00: n E 00 [facility] Active Low Rash 2021- MD [facility] 08-12 Anders[facility] GLUCONAT 00:00: n E 00 [facility] Active Low Rash 2021- ID[facility] INGREDI 08-12 [facility] GLUCONAT 00:00: n E 00 [facility] Active Low Rash 2021- MD [facility] 08-12 [facility] GLUCONAT 00:00: n E 00 [facility] Active Low Rash 2021- MD [facility] 08-12 [facility] GLUCONAT 00:00: n E 00 [facility] Active Low Rash 2021- [facility] 08-12 [facility] GLU[facility]AT 00:00: n E 00 [facility] Active Low Rash 2021- ID[facility]GREDI 08-12 [facility] GLU[facility]AT 00:00: n E 00 [facility] Active Low Rash 2021- [facility] INGREDI 08-12 [facility] GLUCONAT 00:00: n E 00 [facility] Active Low Rash 2021-1 [facility]GREDI 08-12 [facility] GLU[facility]AT 00:00: n E 00 [facility] Active Low Rash 2021-1 MD [facility] 1-24 [facility] GLUCONAT 00:00: n E 00 [facility] Active Low Rash 2021- MD [facility] 24 [facility] GLUCONAT 00:00: n E 00 [facility] Active Low Rash 2021- [facility] INGREDI 08-12 [facility] GLUCONAT 00:00: n E 00 [facility] Active Low Rash 2021- MD [facility] 08-12 [facility] GLUCONAT 00:00: n E 00 [facility] Active Low Rash 2021- [facility]GREDI 08-12 [facility]AT 00:00: n E 00 [facility] Active Low Rash 2021- MD [facility] 08-12 [facility] GLU[facility] 00:00: n E 00 [facility] Active Low Rash 2021- ID[facility] INGREDI 08-12 [facility] GLU[facility]AT 00:00: n E 00 [facility] Active Low Rash 2021- MD [facility] 08-12 [facility] 00:00: n E 00 [facility] Active Low Rash 2021- [facility]GREDI 08-12 [facility] GLUCONAT 00:00: n E 00 [facility] Active Low Rash 2021- [facility] INGREDI 08-12 [facility] GLUCONAT 00:00: n E 00 [facility] Active Low Rash 2021-1 MD [facility] 08-12 [facility] GLUCONAT 00:00: n E 00 [facility] Active Low Rash 2021-1 MD [facility] 08-12 [facility] GLUCONAT 00:00: n E 00 [facility] Active Low Rash 2021-1 [facility] 08-12 [facility] GLUCONAT 00:00: n E 00 [facility] Active Low Rash 2021-1 [facility] 24 [facility] GLUCONAT 00:00: n E 00 [facility] Active Low Rash 2021- MD [facility] 24 [facility] 00:00: n E 00 [facility] Active Low Rash 2021-1 [facility] INGREDI 24 [facility] 00:00: n E 00 [facility] Active Low Rash 2021- MD [facility] 08-12 [facility] GLU[facility]AT 00:00: n E 00 [facility] Active Low Rash 2021- [facility]GR[facility] 08-12 [facility] 00:00: n E 00 [facility] Active Low Rash 2021- [facility]GR[facility]I 08-12 [facility] GLU[facility]AT 00:00: n E 00 [facility] Active Low Rash 2021- [facility]GR[facility]I 08-12 [facility] GL[facility]AT 00:00: n E 00 [facility] Active Low Rash 2021- [facility]GR[facility]I 08-12 [facility] GLU[facility]AT 00:00: n E 00 [facility] Active Low Rash 2021- [facility]GR[facility]I 08-12 [facility] GLUCONAT 00:00: n E 00 [facility] Active Low Rash 2021- ID[facility] INGREDI 08-12 [facility] GL[facility]AT 00:00: n E 00 [facility] Active Low Rash 2021- ID[facility] INGREDI 08-12 [facility] GLU[facility]AT 00:00: n E 00 [facility] Active Low Rash 2021- [facility]GR[facility] 08-12 [facility] GLU[facility]AT 00:00: n E 00 [facility] Active Low Rash 2021- [facility]GR[facility]I 08-12 [facility] GL[facility]AT 00:00: n E 00 [facility] Active Low Rash 2021- [facility]GR[facility]I 08-12 [facility] GL[facility]AT 00:00: n E 00 [facility] Active Low Rash 2021- ID[facility] INGREDI 08-12 [facility] GL[facility] 00:00: n E 00 [facility] Active Low Rash 2021- [facility] INGREDI 08-12 [facility] GLUCONAT 00:00: n E 00 [facility] Active Low Rash 2021- ID[facility] INGREDI 08-12 Anders[facility] GLUCONAT 00:00: n E 00 [facility] Active Low Rash 2021- ID[facility] INGREDI 08-12 Anders[facility] GLUCONAT 00:00: n E 00 [facility] Active Low Rash 2021-1 [facility] INGREDI 08-12 [facility] GLUCONAT 00:00: n E 00 [facility] Active Low Rash 2021-1 ID[facility] INGREDI 1-24 Anders[facility] GLUCONAT 00:00: n E 00 [facility] Active Low Rash 2022-1 ID[facility] INGREDI 24 Anders[facility] GLUCONAT 00:00: n E 00 [facility] Active Low Rash 2021-1 IDINE INGREDI 24 [facility] GLUCONAT 00:00: n E 00 [facility] Active Low Rash 2021-1 IDINE INGREDI 24 Anderso GLUCONAT 00:00: n E 00 [facility] Active Low Rash 2021-1 ID[facility] INGREDI 08-12 Anders[facility] GLUCONAT 00:00: n E 00 [facility] Active Low Rash 2021- IDINE INGREDI 08-12 Anderso GLUCONAT 00:00: n E 00 [facility] Active Low Rash 2021- IDINE INGREDI 08-12 Anders[facility] GLUCONAT 00:00: n E 00 [facility] Active Low Rash 2021-1 ID[facility] INGREDI 08-12 Anders[facility] GLUCONAT 00:00: n E 00 [facility] Active Low Rash 2021- IDINE INGREDI 08-12 Anders[facility] GLUCONAT 00:00: n E 00 [facility] Active Low Rash 2021-1 IDINE INGREDI 08-12 Anders[facility] GLUCONAT 00:00: n E 00 [facility] Active Low Rash 2021-1 IDINE INGREDI 08-12 Anders[facility] GLUCONAT 00:00: n E 00 [facility] Active Low Rash 2022-1 IDINE INGREDI 08-12 Anders[facility] GLUCONAT 00:00: n E 00 [facility] Active Low Rash 2-1 IDINE INGREDI 24 Anderso GLUCONAT 00:00: n E 00 [facility] Active Low Rash 2022-1 IDINE INGREDI 24 Anderso GLUCONAT 00:00: n E 00 [facility] Active Low Rash 2-1 IDINE INGREDI 24 Anderso GLUCONAT 00:00: n E 00 [facility] Active Low Rash 2022-1 IDINE INGREDI 24 Anderso GLUCONAT 00:00: n E 00 [place] [facility]UG Active Low Rash 2022-1 IDINE INGREDI 24 Anderso GLUCONAT 00:00: n E 00 [place] [facility]UG Active Low Rash 2022-1 IDINE INGREDI 24 Anders[facility] GLUCONAT 00:00: n E 00 [place] [facility]UG Active Low Rash 2021-1 IDINE INGREDI 08-12 [facility] GLUCONAT 00:00: n E 00 [place] [facility]UG Active Low Rash 2021-1 IDINE INGREDI 08-12 [facility] GLUCONAT 00:00: n E 00 [place] [facility]UG Active Low Rash 2021-1 IDINE INGREDI 08-12 [facility] GLUCONAT 00:00: n E 00 [place] [facility]UG Active Low Rash 2021- IDINE INGREDI 08-12 Anderso GLUCONAT 00:00: n E 00 [place] [facility]UG Active Low Rash 2021- IDIYOSHI INGREDI 08-12 Anderso GLUCONAT 00:00: n E 00 [place] [facility]UG Active Low Rash 2021- IDINE INGREDI 08-12 Anderso GLUCONAT 00:00: n E 00 [place] [facility]UG Active Low Rash 2021- IDINE INGREDI 08-12 Anderso GLUCONAT 00:00: n E 00 [place] [facility]UG Active Low Rash 2021-1 IDINE INGREDI 08-12 [facility] GLUCONAT 00:00: n E 00 [place] [facility]UG Active Low Rash 2021-1 IDINE INGREDI 08-12 Anders[facility] GLUCONAT 00:00: n E 00 [place] [facility]UG Active Low Rash 2021-1 IDINE INGREDI 08-12 Anders[facility] GLUCONAT 00:00: n E 00 [place] [facility]UG Active Low Rash 2-1 IDINE INGREDI 08-12 Anders[facility] GLUCONAT 00:00: n E 00 [place] [facility]UG Active Low Rash 2-1 IDINE INGREDI 24 Anderso GLUCONAT 00:00: n E 00 [place] [facility]UG Active Low Rash 2022-1 IDINE INGREDI 24 Anderso GLUCONAT 00:00: n E 00 [place] [facility]UG Active Low Rash 2022-1 IDIYOSHI INGREDI 24 Anderso GLUCONAT 00:00: n E 00 [place] [facility]UG Active Low Rash 2022-1 IDINE INGREDI 24 Anderso GLUCONAT 00:00: n E 00 [place] [facility]UG Active Low Rash 2021-1 IDINE INGREDI 24 Anderso GLUCONAT 00:00: n E 00 [place] [facility]UG Active Low Rash 2021-1 IDINE INGREDI 24 Anderso GLUCONAT 00:00: n E 00 [place] [facility]UG Active Low Rash 2021-1 IDINE INGREDI 24 Anderso GLUCONAT 00:00: n E 00 [place] [facility]UG Active Low Rash 2021-1 IDINE INGREDI 08-12 [facility] GLUCONAT 00:00: n E 00 [place] [facility]UG Active Low Rash 2021- IDINE INGREDI 24 Anderso GLUCONAT 00:00: n E 00 [place] [facility]UG Active Low Rash 2021- IDIYOSHI INGREDI 08-12 Anders[facility] GLUCONAT 00:00: n E 00 [place] [facility]UG Active Low Rash 2021- IDINE INGREDI 08-12 Anders[facility] GLUCONAT 00:00: n E 00 [place] [facility]UG Active Low Rash 2021-1 IDINE INGREDI 08-12 Anders[facility] GLUCONAT 00:00: n E 00 [place] [facility]UG Active Low Rash 2021- IDINE INGREDI 24 Anderso GLUCONAT 00:00: n E 00 [place] [facility]UG Active Low Rash 2021-1 IDIYOSHI INGREDI 08-12 Anderso GLUCONAT 00:00: n E 00 [place] [facility]UG Active Low Rash 2021-1 IDINE INGREDI 24 Anderso GLUCONAT 00:00: n E 00 [place] [facility]UG Active Low Rash 2021-1 IDINE INGREDI 24 Anderso GLUCONAT 00:00: n E 00 [facility] Active Low Rash 2-1 IDINE INGREDI 24 Anders[facility] GLUCONAT 00:00: n E 00 [facility] Active Low Rash 2021-1 IDINE INGREDI 24 Anderso GLUCONAT 00:00: n E 00 [facility] Active Low Rash 2022-1 IDIYOSHI INGREDI 24 Anderso GLUCONAT 00:00: n E 00 [facility] Active Low Rash 2021-1 IDIYOSHI INGREDI 24 Anderso GLUCONAT 00:00: n E 00 [facility] Active Low Rash 2022- IDIYOSHI INGREDI 24 Anderso GLUCONAT 00:00: n E 00 [facility] Active Low Rash 2021- IDIYOSHI INGREDI 08-12 Anderso GLUCONAT 00:00: n E 00 [facility] Active Low Rash 2021- IDIYOSHI INGREDI 08-12 Anderso GLUCONAT 00:00: n E 00 [facility] Active Low Rash 2021- IDINE INGREDI 08-12 Anderso GLUCONAT 00:00: n E 00 [facility] Active Low Rash 2021- IDIYOSHI INGREDI 08-12 Anderso GLUCONAT 00:00: n E 00 [facility] Active Low Rash 2021- IDIYOSHI INGREDI 08-12 Anderso GLUCONAT 00:00: n E 00 [facility] Active Low Rash 2021- MD [facility] INGREDI 08-12 Anderso GLUCONAT 00:00: n E 00 [facility] Active Low Rash 2021- IDIYOSHI INGREDI 08-12 Anderso GLUCONAT 00:00: n E 00 [facility] Active Low Rash 2021- IDIYOSHI INGREDI 08-12 Anderso GLUCONAT 00:00: n E 00 [facility] Active Low Rash 2021- IDINE INGREDI 08-12 Anderso GLUCONAT 00:00: n E 00 [facility] Active Low Rash 2021- IDIYOSHI INGREDI 08-12 Anderso GLUCONAT 00:00: n E 00 [facility] Active Low Rash 2021- IDIYOSHI INGREDI 08-12 Anderso GLUCONAT 00:00: n E 00 [facility] Active Low Rash 2021-1 IDINE INGREDI 24 Anderso GLUCONAT 00:00: n E 00 [facility] [facility] Active Low Rash 2021- IDIYOSHI INGREDI 24 Anderso GLUCONAT 00:00: n E 00 [facility] Active Low Rash 2021-1 IDIYOSHI INGREDI 24 Anderso GLUCONAT 00:00: n E 00 [facility] Active Low Rash 2021-1 IDIYOSHI INGREDI 08-12 Anderso GLUCONAT 00:00: n E 00 [facility] Active Low Rash 2021-1 MD [facility] INGREDI 24 Anderso GLUCONAT 00:00: n E 00 [facility] [facility] Active Low Rash 2021- MD [facility] INGREDI 08-12 Anderso GLUCONAT 00:00: n E 00 [place] [facility] Active Low Rash 2021- MD [facility] INGREDI 08-12 Anderso GLUCONAT 00:00: n E 00 [place] [facility] Active Low Rash 2021- MD [facility] INGREDI 08-12 Anderso GLUCONAT 00:00: n E 00 [facility] Active Low Rash 2021- MD [facility] INGREDI 08-12 Anderso GLUCONAT 00:00: n E 00 [facility] Active Low Rash 2021- MD [facility] INGREDI 08-12 Anderso GLUCONAT 00:00: n E 00 [facility] Active Low Rash 2021- MD [facility] INGREDI 08-12 Anderso GLUCONAT 00:00: n E 00 [place] Active Low Rash 2021- MD [facility] INGREDI 08-12 Anderso GLUCONAT 00:00: n E 00 [facility] Active Low Rash 2021- MD [facility] INGREDI 08-12 Anderso GLUCONAT 00:00: n E 00 [place] [facility] Active Low Rash 2021- MD [facility] INGREDI 08-12 Anderso GLUCONAT 00:00: n E 00 [facility] Active Low Rash 2021- MD [facility] INGREDI 08-12 Anderso GLUCONAT 00:00: n E 00 [facility] Active Low Rash 2021- MD [facility] INGREDI 08-12 Anderso GLUCONAT 00:00: n E 00 [place] [facility] Active Low Rash 2021- MD [facility] INGREDI 08-12 Anderso GLUCONAT 00:00: n E 00 [place] [facility] Active Low Rash 2021- MD [facility] INGREDI 08-12 Anderso GLUCONAT 00:00: n E 00 [place] [facility] Active Low Rash 2021- MD [facility] INGREDI 08-12 Anderso GLUCONAT 00:00: n E 00 [place] [facility] Active Low Rash 2021- MD [facility] INGREDI 08-12 Anderso GLUCONAT 00:00: n E 00 [place] [facility] Active Low Rash 2021- MD IDINE INGREDI 08-12 Anderso GLUCONAT 00:00: n E 00 [place] [facility] Active Low Rash 2021-07 IDINE INGREDI 08-12 Anderso GLUCONAT 00:00: n E 00 [place] [facility] Active Low Rash 2021-07 IDINE INGREDI 08-12 Anderso GLUCONAT 00:00: n E 00 [place] [facility] Active Low Rash 2021-07 IDINE INGREDI 08-12 Anderso GLUCONAT 00:00: n E 00 [place] [facility] Active Low Rash 2021-07 IDINE INGREDI 08-12 Anderso GLUCONAT 00:00: n E 00 [place] [facility] Active Low Rash 2021-07 IDIYOSHI INGREDI 08-12 Anderso GLUCONAT 00:00: n E 00 [place] [facility] Active Low Rash 2021-07 IDIYOSHI INGREDI 08-12 Anderso GLUCONAT 00:00: n E 00 [place] [facility] Active Low Rash 2021-07 IDINE INGREDI 08-12 Anderso GLUCONAT 00:00: n E 00 [place] [facility] Active Low Rash 2021- IDINE INGREDI 08-12 Anderso GLUCONAT 00:00: n E 00 [place] [facility] Active Low Rash 2021- IDINE INGREDI 08-12 Anderso GLUCONAT 00:00: n E 00 [place] [facility] Active Low Rash 2021- IDINE INGREDI 08-12 Anderso GLUCONAT 00:00: n E 00 [place] [facility] Active Low Rash 2021- IDINE INGREDI 08-12 Anderso GLUCONAT 00:00: n E 00 [place] [facility] Active Low Rash 2021- IDINE INGREDI 08-12 Anderso GLUCONAT 00:00: n E 00 [place] [facility] Active Low Rash 2021- IDINE INGREDI 08-12 Anderso GLUCONAT 00:00: n E 00 [place] [facility] Active Low Rash 2021- IDINE INGREDI 08-12 Anderso GLUCONAT 00:00: n E 00 [place] [facility] Active Low Rash 2021- IDINE INGREDI 08-12 Anderso GLUCONAT 00:00: n E 00 [place] [facility] Active Low Rash 2021-1 MD IDINE INGREDI 1-24 Anderso GLUCONAT 00:00: n E 00 [place] [facility] Active Low Rash 2021- IDINE INGREDI 08-12 Anderso GLUCONAT 00:00: n E 00 [place] [facility] Active Low Rash 2021- IDINE INGREDI 08-12 Anderso GLUCONAT 00:00: n E 00 [place] [facility] Active Low Rash 2021- IDINE INGREDI 08-12 Anderso GLUCONAT 00:00: n E 00 [place] [facility] Active Low Rash 2021- IDINE INGREDI 08-12 Anderso GLUCONAT 00:00: n E 00 [place] [facility] Active Low Rash 2021- IDINE INGREDI 08-12 Anderso GLUCONAT 00:00: n E 00 [place] [facility] Active Low Rash 2021- IDINE INGREDI 08-12 Anderso GLUCONAT 00:00: n E 00 [place] [facility] Active Low Rash 2021- IDINE INGREDI 08-12 Anderso GLUCONAT 00:00: n E 00 [place] [facility] Active Low Rash 2021- IDINE INGREDI 08-12 Anderso GLUCONAT 00:00: n E 00 [place] [facility] Active Low Rash 2021- IDINE INGREDI 08-12 Anderso GLUCONAT 00:00: n E 00 [place] [facility] Active Low Rash 2021- IDINE INGREDI 08-12 Anderso GLUCONAT 00:00: n E 00 [place] [facility] Active Low Rash 2021- IDINE INGREDI 08-12 Anderso GLUCONAT 00:00: n E 00 [place] [facility] Active Low Rash 2021- IDINE INGREDI 08-12 Anderso GLUCONAT 00:00: n E 00 [facility] [facility] Active Low Rash 2021-1 IDINE INGREDI 08-12 Anderso GLUCONAT 00:00: n E 00 [place] [facility] Active Low Rash 2021- IDIYOSHI INGREDI 08-12 Anderso GLUCONAT 00:00: n E 00 [place] Active Low Rash 2021- IDIYOSHI INGREDI 08-12 Anderso GLUCONAT 00:00: n E 00 [place] [facility] Active Low Rash 2021- MD [facility] INGREDI 1-24 Anderso GLUCONAT 00:00: n E 00 [place] [facility] Active Low Rash 2021- IDINE INGREDI 08-12 Anderso GLUCONAT 00:00: n E 00 [place] [facility] Active Low Rash 2021- IDIYOSHI INGREDI 08-12 Anderso GLUCONAT 00:00: n E 00 [place] [facility] Active Low Rash 2021- IDIYOSHI INGREDI 08-12 Anderso GLUCONAT 00:00: n E 00 [place] [facility] Active Low Rash 2021- IDINE INGREDI 08-12 Anderso GLUCONAT 00:00: n E 00 [place] [facility] Active Low Rash 2021- IDIYOSHI INGREDI 08-12 Anderso GLUCONAT 00:00: n E 00 [place] Active Low Rash 2021- IDIYOSHI INGREDI 08-12 Anderso GLUCONAT 00:00: n E 00 [facility] [facility] Active Low Rash 2021- IDIYOSHI INGREDI 08-12 Anderso GLUCONAT 00:00: n E 00 [place] [facility] Active Low Rash 2021- IDINE INGREDI 08-12 Anderso GLUCONAT 00:00: n E 00 [place] [facility] Active Low Rash 2021-1 IDINE INGREDI 08-12 Anderso GLUCONAT 00:00: n E 00 [place] [facility] Active Low Rash 2021- IDIYOSHI INGREDI 08-12 Anderso GLUCONAT 00:00: n E 00 [place] [facility] Active Low Rash 2021-1 IDIYOSHI INGREDI 08-12 Anderso GLUCONAT 00:00: n E 00 [place] [facility] Active Low Rash 2021- IDINE INGREDI 08-12 Anderso GLUCONAT 00:00: n E 00 [place] [facility] Active Low Rash 2021-1 IDINE INGREDI 08-12 Anderso GLUCONAT 00:00: n E 00 [place] [facility] Active Low Rash 2021-1 IDIYOSHI INGREDI 08-12 Anderso GLUCONAT 00:00: n E 00 [place] [facility] Active Low Rash 2021-1 IDIYOSHI INGREDI 08-12 Anderso GLUCONAT 00:00: n E 00 [place] Active Low Rash 2021-1 MD [facility] INGREDI 1-24 Anderso GLUCONAT 00:00: n E 00 [facility] Active Low Rash 2022-1 IDINE INGREDI 24 Anderso GLUCONAT 00:00: n E 00 [place] [facility] Active Low Rash 2022-1 IDINE INGREDI 24 Anderso GLUCONAT 00:00: n E 00 [place] [facility] Active Low Rash 2022-1 IDINE INGREDI 24 Anderso GLUCONAT 00:00: n E 00 [place] [facility] Active Low Rash 2022-1 IDINE INGREDI 24 Anderso GLUCONAT 00:00: n E 00 [place] [facility] Active Low Rash 2021-1 IDINE INGREDI 08-12 Anderso GLUCONAT 00:00: n E 00 [place] [facility] Active Low Rash 2021-1 IDINE INGREDI 08-12 Anderso GLUCONAT 00:00: n E 00 [place] [facility] Active Low Rash 2022-1 IDINE INGREDI 08-12 Anderso GLUCONAT 00:00: n E 00 [place] [facility] Active Low Rash 2022-1 IDINE INGREDI 08-12 Anderso GLUCONAT 00:00: n E 00 [place] [facility] Active Low Rash 2022-1 IDINE INGREDI 08-12 Anderso GLUCONAT 00:00: n E 00 [place] [facility] Active Low Rash 2022-1 IDINE INGREDI 08-12 Anderso GLUCONAT 00:00: n E 00 [place] [facility] Active Low Rash 2022-1 IDINE INGREDI 08-12 Anderso GLUCONAT 00:00: n E 00 [place] [facility] Active Low Rash 2022-1 IDINE INGREDI 24 Anderso GLUCONAT 00:00: n E 00 [place] [facility] Active Low Rash 2022-1 IDINE INGREDI 24 Anderso GLUCONAT 00:00: n E 00 [place] [facility] Active Low Rash 2022-1 IDINE INGREDI 24 Anderso GLUCONAT 00:00: n E 00 [place] [facility] Active Low Rash 2022-1 IDINE INGREDI 24 Anderso GLUCONAT 00:00: n E 00 [place] [facility] Active Low Rash 2022-1 IDINE INGREDI 24 Anderso GLUCONAT 00:00: n E 00 [place] [facility] Active Low Rash 2022-1 IDINE INGREDI 24 Anderso GLUCONAT 00:00: n E 00 [place] [facility] Active Low Rash 202-1 IDIYOSHI INGREDI 08-12 Anderso GLUCONAT 00:00: n E 00 [place] [facility] Active Low Rash 2021-1 IDINE INGREDI 08-12 Anderso GLUCONAT 00:00: n E 00 [place] [facility] Active Low Rash 2021-1 IDINE INGREDI 08-12 Anderso GLUCONAT 00:00: n E 00 [place] [facility] Active Low Rash 2021- IDINE INGREDI 08-12 Anderso GLUCONAT 00:00: n E 00 [place] [facility] Active Low Rash 2021-1 IDIYOSHI INGREDI 08-12 Anderso GLUCONAT 00:00: n E 00 [place] [facility] Active Low Rash 2021- IDINE INGREDI 08-12 Anderso GLUCONAT 00:00: n E 00 [place] [facility] Active Low Rash 2021-1 IDIYOSHI INGREDI 08-12 Anderso GLUCONAT 00:00: n E 00 [place] [facility] Active Low Rash 2021-1 IDINE INGREDI 08-12 Anderso GLUCONAT 00:00: n E 00 [place] [facility] Active Low Rash 2021-1 IDINE INGREDI 08-12 Anderso GLUCONAT 00:00: n E 00 [place] [facility] Active Low Rash 2-1 IDINE INGREDI 08-12 Anderso GLUCONAT 00:00: n E 00 [place] [facility] Active Low Rash 2022-1 IDINE INGREDI 08-12 Anderso GLUCONAT 00:00: n E 00 [place] [facility] Active Low Rash 2022-1 IDINE INGREDI 24 Anderso GLUCONAT 00:00: n E 00 [place] [facility] Active Low Rash 2022-1 IDIYOS[facility] INGREDI 24 Anderso GLUCONAT 00:00: n E 00 [place] [facility] Active Low Rash 2022-1 IDIYOSHI INGREDI 24 Anderso GLUCONAT 00:00: n E 00 [place] [facility] Active Low Rash 2022-1 IDINE INGREDI 24 Anderso GLUCONAT 00:00: n E 00 [place] [facility] Active Low Rash 2021- IDINE INGREDI 24 Anderso GLUCONAT 00:00: n E 00 [place] [facility] Active Low Rash 2021-1 IDINE INGREDI 08-12 Anderso GLUCONAT 00:00: n E 00 [place] [facility] Active Low Rash 2021-1 IDINE INGREDI 24 Anderso GLUCONAT 00:00: n E 00 [place] [facility] Active Low Rash 2021- IDINE INGREDI 08-12 Anderso GLUCONAT 00:00: n E 00 [place] [facility] Active Low Rash 2021- IDINE INGREDI 08-12 Anderso GLUCONAT 00:00: n E 00 [place] [facility] Active Low Rash 2021- IDIYOSHI INGREDI 08-12 Anderso GLUCONAT 00:00: n E 00 [place] [facility] Active Low Rash 2021- IDINE INGREDI 08-12 Anderso GLUCONAT 00:00: n E 00 [place] [facility] Active Low Rash 2021- IDINE INGREDI 08-12 Anderso GLUCONAT 00:00: n E 00 [place] [facility] Active Low Rash 2021- IDINE INGREDI 08-12 Anderso GLUCONAT 00:00: n E 00 [facility] [facility] Active Low Rash 2021-1 IDIYOSHI INGREDI 08-12 Anderso GLUCONAT 00:00: n E 00 [place] [facility] Active Low Rash 2021- IDINE INGREDI 24 Anderso GLUCONAT 00:00: n E 00 [place] [facility] Active Low Rash 2021-1 IDIYOSHI INGREDI 08-12 Anderso GLUCONAT 00:00: n E 00 [place] [facility] Active Low Rash 2021-1 IDINE INGREDI 24 Anderso GLUCONAT 00:00: n E 00 [place] [facility] Active Low Rash 2021-1 IDINE INGREDI 24 Anderso GLUCONAT 00:00: n E 00 [place] [facility] Active Low Rash 2021-1 IDIYOSHI INGREDI 24 Anderso GLUCONAT 00:00: n E 00 [place] [facility] Active Low Rash 2021- IDIYOSHI INGREDI 24 Anderso GLUCONAT 00:00: n E 00 [place] [facility] Active Low Rash 2021- MD [facility] INGREDI 24 Anderso GLUCONAT 00:00: n E 00 [facility] [facility] Active Low Rash 2021- IDIYOSHI INGREDI 08-12 Anderso GLUCONAT 00:00: n E 00 [place] [facility] Active Low Rash 2021-1 MD [facility] INGREDI 08-12 Anderso GLUCONAT 00:00: n E 00 [facility] Active Low Rash 2021- IDIYOSHI INGREDI 08-12 Anderso GLUCONAT 00:00: n E 00 [facility] Active Low Rash 2021- IDIYOSHI INGREDI 08-12 Anderso GLUCONAT 00:00: n E 00 [place] [facility] Active Low Rash 2021- MD [facility] INGREDI 08-12 Anderso GLUCONAT 00:00: n E 00 [place] [facility] Active Low Rash 2021- MD [facility] INGREDI 08-12 Anderso GLUCONAT 00:00: n E 00 [place] [facility] Active Low Rash 2021- MD [facility] INGREDI 08-12 Anderso GLUCONAT 00:00: n E 00 [facility] [facility] Active Low Rash 2021- IDIYOSHI INGREDI 08-12 Anderso GLUCONAT 00:00: n E 00 [place] [facility] Active Low Rash 2021- IDIYOSHI INGREDI 08-12 Anderso GLUCONAT 00:00: n E 00 [place] [facility] Active Low Rash 2021- MD [facility] INGREDI 08-12 Anderso GLUCONAT 00:00: n E 00 [place] [facility] Active Low Rash 2021- MD [facility] INGREDI 08-12 Anderso GLUCONAT 00:00: n E 00 [place] [facility] Active Low Rash 2021-1 IDIYOSHI INGREDI 24 Anderso GLUCONAT 00:00: n E 00 [place] [facility] Active Low Rash 2021- MD [facility] INGREDI 24 Anderso GLUCONAT 00:00: n E 00 [place] [facility] Active Low Rash 2021-1 MD [facility] INGREDI 24 Anderso GLUCONAT 00:00: n E 00 [place] [facility] Active Low Rash 2021-1 MD [facility] INGREDI 08-12 Anderso GLUCONAT 00:00: n E 00 [place] [facility] Active Low Rash 2021-1 MD WEEKS[place] INGREDI 24 Anderso GLUCONAT 00:00: n E 00 [place] [facility] Active Low Rash 2021- IDINE INGREDI 08-12 Anderso GLUCONAT 00:00: n E 00 [place] [facility] Active Low Rash 2021- IDIYOSHI INGREDI 08-12 Anderso GLUCONAT 00:00: n E 00 [place] [facility] Active Low Rash 2021- IDINE INGREDI 08-12 Anderso GLUCONAT 00:00: n E 00 [place] [facility] Active Low Rash 2021- IDINE INGREDI 08-12 Anderso GLUCONAT 00:00: n E 00 [place] [facility] Active Low Rash 2021- MD [facility] INGREDI 08-12 Anderso GLUCONAT 00:00: n E 00 [place] [facility] Active Low Rash 2021- MD [facility] INGREDI 08-12 Anderso GLUCONAT 00:00: n E 00 [facility] [facility] Active Low Rash 2021- MD WEEKSNE INGREDI 08-12 Anderso GLUCONAT 00:00: n E 00 [facility] [facility] Active Low Rash 2021- IDIYOSHI INGREDI 08-12 Anderso GLUCONAT 00:00: n E 00 [place] [facility] Active Low Rash 2021- MD [facility] INGREDI 08-12 Anderso GLUCONAT 00:00: n E 00 [place] [facility] Active Low Rash 2021-1 MD [facility] INGREDI 08-12 Anderso GLUCONAT 00:00: n E 00 [place] [facility] Active Low Rash 2021- MD [facility] INGREDI 08-12 Anderso GLUCONAT 00:00: n E 00 [place] [facility] Active Low Rash 2021-1 MD [facility] INGREDI 08-12 Anderso GLUCONAT 00:00: n E 00 [facility] [facility] Active Low Rash 2021- IDINE INGREDI 08-12 Anderso GLUCONAT 00:00: n E 00 [place] [facility] Active Low Rash 2021- MD [facility] INGREDI 08-12 Anderso GLUCONAT 00:00: n E 00 [facility] [facility] Active Low Rash 2021-1 MD [facility] INGREDI 08-12 Anderso GLUCONAT 00:00: n E 00 [facility] Active Low Rash 2021-07 MD HOLBROK[place] INGREDI 08-12 Anderso GLUCONAT 00:00: n E 00 [facility] [facility] Active Low Rash 2021-07 MD [facility] INGREDI 08-12 Anderso GLUCONAT 00:00: n E 00 [facility] Active Low Rash 2021-07 IDIYOSHI INGREDI 08-12 Anderso GLUCONAT 00:00: n E 00 [facility] [facility] Active Low Rash 2021-07 MD [facility] INGREDI 08-12 Anderso GLUCONAT 00:00: n E 00 [facility] Active Low Rash 2021- IDIYOSHI INGREDI 08-12 Anderso GLUCONAT 00:00: n E 00 [facility] [facility] Active Low Rash 2021-07 MD [facility] INGREDI 08-12 Anderso GLUCONAT 00:00: n E 00 [facility] [facility] Active Low Rash 2021-07 MD [facility] INGREDI 08-12 Anderso GLUCONAT 00:00: n E 00 [facility] [facility] Active Low Rash 2021-07 MD [facility] INGREDI 08-12 Anderso GLUCONAT 00:00: n E 00 [facility] Active Low Rash 2021- IDINE INGREDI 08-12 Anderso GLUCONAT 00:00: n E 00 [facility] [facility] Active Low Rash 2021-07 MD WEEKSNE INGREDI 08-12 Anderso GLUCONAT 00:00: n E 00 [facility] [facility] Active Low Rash 2021- MD [facility] INGREDI 08-12 Anderso GLUCONAT 00:00: n E 00 [place] [facility] Active Low Rash 2021- MD [facility] INGREDI 08-12 Anderso GLUCONAT 00:00: n E 00 [facility] [facility] Active Low Rash 2021- IDINE INGREDI 08-12 Anderso GLUCONAT 00:00: n E 00 [facility] [facility] Active Low Rash 2021- IDINE INGREDI 08-12 Anderso GLUCONAT 00:00: n E 00 [facility] [facility] Active Low Rash 2021- IDIYOSHI INGREDI 08-12 Anderso GLUCONAT 00:00: n E 00 [place] [facility] Active Low Rash 2021- IDINE INGREDI 08-12 Anderso GLUCONAT 00:00: n E 00 [place] [facility] Active Low Rash 2021- MD IDINE INGREDI 08-12 Anderso GLUCONAT 00:00: n E 00 [place] [facility] Active Low Rash 2021- IDINE INGREDI 08-12 Anderso GLUCONAT 00:00: n E 00 [place] [facility] Active Low Rash 2021- IDINE INGREDI 08-12 Anderso GLUCONAT 00:00: n E 00 [place] [facility] Active Low Rash 2021- IDINE INGREDI 08-12 Anderso GLUCONAT 00:00: n E 00 [place] [facility] Active Low Rash 2021- IDINE INGREDI 08-12 Anderso GLUCONAT 00:00: n E 00 [facility] [facility] Active Low Rash 2021- IDIYOSHI INGREDI 08-12 Anderso GLUCONAT 00:00: n E 00 [facility] [facility] Active Low Rash 2021- IDIYOSHI INGREDI 08-12 Anderso GLUCONAT 00:00: n E 00 [facility] [facility] Active Low Rash 2021- IDIYOSHI INGREDI 08-12 Anderso GLUCONAT 00:00: n E 00 [facility] [facility] Active Low Rash 2021- IDINE INGREDI 08-12 Anderso GLUCONAT 00:00: n E 00 [facility] [facility] Active Low Rash 2021- IDIYOSHI INGREDI 08-12 Anderso GLUCONAT 00:00: n E 00 [facility] [facility] Active Low Rash 2021- IDINE INGREDI 08-12 Anderso GLUCONAT 00:00: n E 00 [facility] [facility] Active Low Rash 2021- MD WEEKSNE INGREDI 08-12 Anderso GLUCONAT 00:00: n E 00 [facility] [facility] Active Low Rash 2021- IDINE INGREDI 08-12 Anderso GLUCONAT 00:00: n E 00 [facility] [facility] Active Low Rash 2021-1 IDINE INGREDI 08-12 Anderso GLUCONAT 00:00: n E 00 [place] [facility] Active Low Rash 2021- MD [facility] INGREDI 08-12 Anderso GLUCONAT 00:00: n E 00 [place] [facility] Active Low Rash 2021-1 MD [facility] INGREDI 08-12 Anderso GLUCONAT 00:00: n E 00 [facility] [facility] Active Low Rash 2021-1 MD [facility] INGREDI 1-24 Anderso GLUCONAT 00:00: n E 00 [facility] [facility] Active Low Rash 2022-1 IDINE INGREDI 08-12 Anderso GLUCONAT 00:00: n E 00 [facility] [facility] Active Low Rash 2021- IDIYOSHI INGREDI 08-12 Anderso GLUCONAT 00:00: n E 00 [facility] [facility] Active Low Rash 2021-1 IDIYOSHI INGREDI 08-12 Anderso GLUCONAT 00:00: n E 00 [facility] [facility] Active Low Rash 2021- IDIYOSHI INGREDI 08-12 Anderso GLUCONAT 00:00: n E 00 [facility] [facility] Active Low Rash 2021-1 IDINE INGREDI 08-12 Anderso GLUCONAT 00:00: n E 00 [facility] [facility] Active Low Rash 2021- IDIYOSHI INGREDI 08-12 Anderso GLUCONAT 00:00: n E 00 [facility] [facility] Active Low Rash 2021-1 IDIYOSHI INGREDI 08-12 Anderso GLUCONAT 00:00: n E 00 [facility] [facility] Active Low Rash 2021- IDINE INGREDI 08-12 Anderso GLUCONAT 00:00: n E 00 [place] [facility] Active Low Rash 2021-1 IDINE INGREDI 08-12 Anderso GLUCONAT 00:00: n E 00 [facility] [facility] Active Low Rash 2021- IDIYOSHI INGREDI 08-12 Anderso GLUCONAT 00:00: n E 00 [facility] [facility] Active Low Rash 2022-1 IDINE INGREDI 08-12 Anderso GLUCONAT 00:00: n E 00 [facility] [facility] Active Low Rash 2022-1 IDINE INGREDI 08-12 Anderso GLUCONAT 00:00: n E 00 [facility] [facility] Active Low Rash 2-1 IDINE INGREDI 24 Anderso GLUCONAT 00:00: n E 00 [place] [facility] Active Low Rash 2022-1 IDIYOSHI INGREDI 08-12 Anderso GLUCONAT 00:00: n E 00 [facility] [facility] Active Low Rash 2022-1 IDINE INGREDI 08-12 Anderso GLUCONAT 00:00: n E 00 [place] [facility] Active Low Rash 2022-1 MD [facility] INGREDI 08-12 Anderso GLUCONAT 00:00: n E 00 [facility] [facility] Active Low Rash 2022-1 IDINE INGREDI 24 Anderso GLUCONAT 00:00: n E 00 [place] [facility] Active Low Rash 2022-1 IDINE INGREDI 24 Anderso GLUCONAT 00:00: n E 00 [place] [facility] Active Low Rash 2022-1 IDINE INGREDI 08-12 Anderso GLUCONAT 00:00: n E 00 [place] [facility] Active Low Rash 2022-1 IDINE INGREDI 08-12 Anderso GLUCONAT 00:00: n E 00 [place] [facility] Active Low Rash 202-1 IDINE INGREDI 08-12 Anderso GLUCONAT 00:00: n E 00 [place] [facility] Active Low Rash 202-1 IDINE INGREDI 08-12 Anderso GLUCONAT 00:00: n E 00 [place] [facility] Active Low Rash 202-1 IDINE INGREDI 08-12 Anderso GLUCONAT 00:00: n E 00 [place] [facility] Active Low Rash 202-1 IDINE INGREDI 08-12 Anderso GLUCONAT 00:00: n E 00 [place] [facility] Active Low Rash 2022-1 IDINE INGREDI 08-12 Anderso GLUCONAT 00:00: n E 00 [place] [facility] Active Low Rash 2022-1 IDINE INGREDI 08-12 Anderso GLUCONAT 00:00: n E 00 [place] [facility] Active Low Rash 2022-1 IDINE INGREDI 08-12 Anderso GLUCONAT 00:00: n E 00 [place] DRUG Active Low Rash 2022-1 IDINE INGREDI 24 Anderso GLUCONAT 00:00: n E 00 [place] DRUG Active Low Rash 2022-1 IDINE INGREDI 24 Anderso GLUCONAT 00:00: n E 00 [place] DRUG Active Low Rash 2022-1 IDINE INGREDI 24 Anderso GLUCONAT 00:00: n E 00 [place] DRUG Active Low Rash 2022-1 IDIYOSHI INGREDI 24 Anderso GLUCONAT 00:00: n E 00 [place] DRUG Active Low Rash 2022-1 IDIYOSHI INGREDI 24 Anderso GLUCONAT 00:00: n E 00 [place] DRUG Active Low Rash 2022-1 IDINE INGREDI 24 Anderso GLUCONAT 00:00: n E 00 [place] DRUG Active Low Rash 2022-1 IDIYOSHI INGREDI 08-12 Anderso GLUCONAT 00:00: n E 00 [place] DRUG Active Low Rash 2021-1 IDINE INGREDI 24 Anderso GLUCONAT 00:00: n E 00 [place] DRUG Active Low Rash 2021-1 IDIYOSHI INGREDI 08-12 Anderso GLUCONAT 00:00: n E 00 [place] DRUG Active Low Rash 2021-1 IDINE INGREDI 08-12 Anderso GLUCONAT 00:00: n E 00 [place] DRUG Active Low Rash 2021-1 IDIYOSHI INGREDI 08-12 Anderso GLUCONAT 00:00: n E 00 [place] DRUG Active Low Rash 2021- IDINE INGREDI 08-12 Anderso GLUCONAT 00:00: n E 00 [place] DRUG Active Low Rash 2021-1 IDIYOSHI INGREDI 08-12 Anderso GLUCONAT 00:00: n E 00 [place] DRUG Active Low Rash 2021-1 IDINE INGREDI 08-12 Anderso GLUCONAT 00:00: n E 00 [place] DRUG Active Low Rash 2021-1 IDIYOSHI INGREDI 08-12 Anderso GLUCONAT 00:00: n E 00 [place] DRUG Active Low Rash 2-1 IDINE INGREDI 24 Anderso GLUCONAT 00:00: n E 00 [place] DRUG Active Low Rash 2022-1 IDIYOSHI INGREDI 24 Anderso GLUCONAT 00:00: n E 00 [place] DRUG Active Low Rash 2022-1 IDINE INGREDI 24 Anderso GLUCONAT 00:00: n E 00 [place] DRUG Active Low Rash 2022-1 IDIYOSHI INGREDI 24 Anderso GLUCONAT 00:00: n E 00 [place] DRUG Active Low Rash 2022-1 IDINE INGREDI 24 Anderso GLUCONAT 00:00: n E 00 [place] DRUG Active Low Rash 2022-1 IDINE INGREDI 24 Anderso GLUCONAT 00:00: n E 00 [place] DRUG Active Low Rash 2021-1 IDINE INGREDI 24 Anderso GLUCONAT 00:00: n E 00 [place] DRUG Active Low Rash 2021-1 IDINE INGREDI 08-12 Anderso GLUCONAT 00:00: n E 00 [place] DRUG Active Low Rash 2021-1 IDINE INGREDI 24 Anderso GLUCONAT 00:00: n E 00 [place] DRUG Active Low Rash 2021-1 IDINE INGREDI 08-12 Anderso GLUCONAT 00:00: n E 00 [place] DRUG Active Low Rash 2021-1 IDINE INGREDI 08-12 Anderso GLUCONAT 00:00: n E 00 [place] DRUG Active Low Rash 2021- IDIYOSHI INGREDI 08-12 Anderso GLUCONAT 00:00: n E 00 [place] DRUG Active Low Rash 2021- IDIYOSHI INGREDI 08-12 Anderso GLUCONAT 00:00: n E 00 [place] DRUG Active Low Rash 2021-1 IDIYOSHI INGREDI 08-12 Anderso GLUCONAT 00:00: n E 00 [place] DRUG Active Low Rash 2021-1 IDINE INGREDI 08-12 Anderso GLUCONAT 00:00: n E 00 [place] DRUG Active Low Rash 2021-1 IDIYOSHI INGREDI 08-12 Anderso GLUCONAT 00:00: n E 00 [place] DRUG Active Low Rash 2021-1 IDINE INGREDI 08-12 Anderso GLUCONAT 00:00: n E 00 [place] DRUG Active Low Rash 2021-1 IDIYOSHI INGREDI 08-12 Anderso GLUCONAT 00:00: n E 00 [place] DRUG Active Low Rash 2022-1 IDINE INGREDI 24 Anderso GLUCONAT 00:00: n E 00 [place] DRUG Active Low Rash 202-1 IDINE INGREDI 24 Anderso GLUCONAT 00:00: n E 00 [place] DRUG Active Low Rash 2022-1 IDIYOSIH INGREDI 24 Anderso GLUCONAT 00:00: n E 00 [place] DRUG Active Low Rash 2022-1 IDIYOSHI INGREDI 08-12 Anderso GLUCONAT 00:00: n E 00 [place] DRUG Active Low Rash 2022- MD [place] INGREDI 24 Anderso GLUCONAT 00:00: n E 00 [place] DRUG Active Low Rash 2021- MD [place] INGREDI 08-12 Anderso GLUCONAT 00:00: n E 00 [place] [employer]UG Active Low Rash 2021-1 MD [place] INGREDI 24 Anderso GLUCONAT 00:00: n E 00 [place] DRUG Active Low Rash 2021- MD [place] INGREDI 08-12 Anderso GLUCONAT 00:00: n E 00 [place] DRUG Active Low Rash 2021- MD [place] INGREDI 08-12 Anderso GLUCONAT 00:00: n E 00 [place] DRUG Active Low Rash 2021- MD [place] INGREDI 08-12 Anderso GLUCONAT 00:00: n E 00 [place] DRUG Active Low Rash 2021- MD [place] INGREDI 08-12 Anderso GLUCONAT 00:00: n E 00 [place] [facility] Active Low Rash 2021- MD [facility] 08-12 [facility]UCON[facility] 00:00: n E 00 [facility] Active Low Rash 2021- MD [facility] 08-12 [facility] GLUCON[facility] 00:00: n E 00 [place] [employer] Active Low Rash 2021- MD [facility] 08-12 [facility] GLUCON[facility] 00:00: n E 00 [place] [facility] Active Low Rash 2021-1 MD [facility] 08-12 [facility] GLUCON[facility] 00:00: n E 00 [place] [facility] Active Low Rash 2021- MD [facility] 08-12 [facility] GLU[facility] 00:00: n E 00 [place] [facility] Active Low Rash 2021-1 MD [facility] 24 [facility] 00:00: n E 00 [place] [facility] Active Low Rash 2021-1 MD [facility] 24 [facility]UCON[facility] 00:00: n E 00 [place] [facility] Active Low Rash 2021-1 MD [facility] 24 [facility]UCON[facility] 00:00: n E 00 [place] [facility] Active Low Rash 2021-1 MD [facility] 08-12 [facility] GLUCONAT 00:00: n E 00 [place] [facility] Active Low Rash 2021-1 MD [facility] 24 [facility] GLUCONAT 00:00: n E 00 [place] [facility] Active Low Rash 2021- MD [facility] 08-12 [facility] GLUCON[facility] 00:00: n E 00 [place] [facility] Active Low Rash 2021- MD [facility] 08-12 [facility] GLUCONAT 00:00: n E 00 [place] [facility] Active Low Rash 2021- MD [facility] 08-12 [facility]UCON[facility] 00:00: n E 00 [place] [facility] Active Low Rash 2021- ID[facility] INGREDI 08-12 [facility] GLUCON[facility] 00:00: n E 00 [place] [facility] Active Low Rash 2021- MD [facility] 08-12 [facility] 00:00: n E 00 [place] [facility] Active Low Rash 2021- MD [facility] 08-12 [facility] 00:00: n E 00 [place] [facility] Active Low Rash 2021- MD [facility] 08-12 [facility] 00:00: n E 00 [place] [facility] Active Low Rash 2021- MD [facility] 08-12 [facility]UCONAT 00:00: n E 00 [place] [facility] Active Low Rash 2021- MD [facility] 08-12 [facility] GLUCONAT 00:00: n E 00 [place] [facility] Active Low Rash 2021-1 MD [facility] 08-12 [facility]UCON[facility] 00:00: n E 00 [place] [facility] Active Low Rash 2021- MD [facility] 08-12 [facility] GLUCONAT 00:00: n E 00 [place] [facility] Active Low Rash 2021-1 MD [facility] 08-12 [facility] GLUCONAT 00:00: n E 00 [place] [facility] Active Low Rash 2021- MD [facility] 08-12 [facility] GLUCONAT 00:00: n E 00 [place] [employer] Active Low Rash 2021- MD [facility] 08-12 [facility] GLUCONAT 00:00: n E 00 [place] [facility] Active Low Rash 2021-1 MD [facility] 08-12 [facility]UCONAT 00:00: n E 00 [place] [facility] Active Low Rash 2021- MD [facility] 08-12 [facility] 00:00: n E 00 [place] [facility] Active Low Rash 2021- MD [facility] 08-12 [facility] 00:00: n E 00 [place] [facility] Active Low Rash 2021- ID[facility] INGREDI 08-12 [facility] GLUCON[facility] 00:00: n E 00 [place] [facility] Active Low Rash 2021- MD [facility] 08-12 [facility]UCON[facility] 00:00: n E 00 [place] [facility] Active Low Rash 2021- [facility] INGREDI 08-12 [facility] 00:00: n E 00 [place] [facility] Active Low Rash 2021- MD [facility] 08-12 [facility] GLUCONAT 00:00: n E 00 [place] [facility] Active Low Rash 2021- MD [facility] 08-12 [facility] GLUCONAT 00:00: n E 00 [place] [facility] Active Low Rash 2021- MD [facility] 08-12 [facility] 00:00: n E 00 [place] [facility] Active Low Rash 2021- MD [facility] 08-12 [facility] 00:00: n E 00 [place] [facility] Active Low Rash 2021- [facility] INGREDI 08-12 [facility] 00:00: n E 00 [place] [employer] Active Low Rash 2021- MD [facility] 08-12 [facility] 00:00: n E 00 [place] [employer] Active Low Rash 2021- MD [facility] 08-12 [facility] 00:00: n E 00 [place] [facility] Active Low Rash 2021- [facility]GR[facility]I 08-12 [facility] GLUCON[facility] 00:00: n E 00 [place] [facility] Active Low Rash 2021-1 [facility] 08-12 [facility] GLUCONAT 00:00: n E 00 [place] [employer] Active Low Rash 2021- MD [facility] 08-12 [facility] 00:00: n E 00 [place] [facility] Active Low Rash 2021-1 [facility]GR[facility]I 08-12 [facility] 00:00: n E 00 [place] [employer] Active Low Rash 2021- MD [facility] INGR[facility]I 08-12 Anders[facility] GLUCONAT 00:00: n E 00 [place] [facility] Active Low Rash 2021- [facility] INGREDI 08-12 Anders[facility] GLUCONAT 00:00: n E 00 [place] [facility] Active Low Rash 2021- [facility]GR[facility]I 08-12 [facility] GLUCONAT 00:00: n E 00 [place] [facility] Active Low Rash 2021- [facility]GR[facility]I 08-12 Anders[facility] GLUCONAT 00:00: n E 00 [place] [facility] Active Low Rash 2021- [facility]GR[facility]I 08-12 Anders[facility] GLUCONAT 00:00: n E 00 [place] [facility] Active Low Rash 2021- [facility]GR[facility]I 08-12 Anders[facility] GLUCONAT 00:00: n E 00 [place] [facility] Active Low Rash 2021- [facility]GR[facility]I 08-12 [facility] GLUCONAT 00:00: n E 00 [place] [facility] Active Low Rash 2021- [facility]GR[facility]I 08-12 [facility] GLUCONAT 00:00: n E 00 [place] [facility] Active Low Rash 2021- [facility]GR[facility]I 08-12 [facility] GLUCONAT 00:00: n E 00 [place] [facility] Active Low Rash 2021-1 [facility] 08-12 [facility] GLUCONAT 00:00: n E 00 [place] [facility] Active Low Rash 2021- [facility]GR[facility]I 08-12 Anders[facility] GLUCONAT 00:00: n E 00 [place] [facility] Active Low Rash 2021-1 [facility] 08-12 [facility] GLUCONAT 00:00: n E 00 [place] [facility] Active Low Rash 2021-1 [facility] 08-12 [facility] GLUCONAT 00:00: n E 00 [place] [employer] Active Low Rash 2021-1 [facility] 08-12 [facility] GLUCONAT 00:00: n E 00 [place] [employer] Active Low Rash 2021-1 [facility] INGREDI 08-12 [facility]UCON[facility] 00:00: n E 00 [place] [facility] Active Low Rash 2-1 [facility] 08-12 [facility] GLUCONAT 00:00: n E 00 [place] [facility] Active Low Rash 2-1 [facility]GR[facility]I 08-12 [facility] 00:00: n E 00 [place] [facility] Active Low Rash 2022-1 [facility] 08-12 [facility] GLUCON[facility] 00:00: n E 00 [place] [facility] Active Low Rash 2021-1 [facility] 08-12 [facility]UCON[facility] 00:00: n E 00 [place] [employer] Active Low Rash 2021-1 [facility] 08-12 [facility]UCON[facility] 00:00: n E 00 [place] [employer] Active Low Rash 2021- [facility] 08-12 [facility] GLUCON[facility] 00:00: n E 00 [place] [employer] Active Low Rash 2021-1 [facility] 08-12 [facility] GLUCONAT 00:00: n E 00 [place] [employer] Active Low Rash 2021- [facility] INGREDI 08-12 [facility]UCONAT 00:00: n E 00 [place] [employer] Active Low Rash 2021-1 [facility] 08-12 [facility] GLUCON[facility] 00:00: n E 00 [place] [facility] Active Low Rash 2021- [facility]GR[facility]I 08-12 [facility] GLUCON[facility] 00:00: n E 00 [place] [facility] Active Low Rash 2021-1 [facility] 08-12 [facility] GLUCONAT 00:00: n E 00 [place] [employer] Active Low Rash 2021- [facility]GR[facility]I 08-12 [facility] GLUCONAT 00:00: n E 00 [place] [employer] Active Low Rash 2022-1 [facility] 08-12 [facility]AT 00:00: n E 00 [place] [employer] Active Low Rash 2021-1 [facility] 08-12 [facility] 00:00: n E 00 [place] [employer] Active Low Rash 2-1 [facility] 24 [facility] GLUCONAT 00:00: n E 00 [place] [employer] Active Low Rash 2-1 [facility]GR[facility]I 08-12 [facility] 00:00: n E 00 [place] [facility] Active Low Rash 2-1 [facility] INGREDI 24 [facility] 00:00: n E 00 [place] [facility] Active Low Rash 2-1 [facility]GR[facility]I 08-12 [facility] 00:00: n E 00 [place] [facility] Active Low Rash 2022-1 [facility] 24 [facility] GLUCONAT 00:00: n E 00 [place] [employer] Active Low Rash 202-1 [facility] 08-12 [facility]UCON[facility] 00:00: n E 00 [place] [employer] Active Low Rash 2022-1 [facility] 08-12 [facility] 00:00: n E 00 [place] [employer] Active Low Rash 202-1 [facility] 08-12 [facility] GLUCON[facility] 00:00: n E 00 [place] [facility] Active Low Rash 2021-1 [facility] 08-12 [facility]UCON[facility] 00:00: n E 00 [place] [facility] Active Low Rash 2021-1 [facility] 08-12 [facility] GLU[facility]AT 00:00: n E 00 [place] [facility] Active Low Rash 2021-1 [facility] 08-12 [facility] GLUCONAT 00:00: n E 00 [place] [employer] Active Low Rash 2021-1 [facility] 08-12 [facility] GLUCON[facility] 00:00: n E 00 [place] [facility] Active Low Rash 2022-1 [facility] 08-12 [facility] GLUCONAT 00:00: n E 00 [place] [facility] Active Low Rash 2022-1 [facility] 08-12 [facility] GLUCONAT 00:00: n E 00 [place] [facility] Active Low Rash 2022-1 [facility]GR[facility]I 08-12 [facility] GLUCONAT 00:00: n E 00 [place] [employer] Active Low Rash 2022-1 [facility]GR[facility]I 08-12 [facility] GLUCONAT 00:00: n E 00 [place] [facility] Active Low Rash 2022-1 [facility]GR[facility] 24 [facility] GLUCONAT 00:00: n E 00 [place] [facility] Active Low Rash 2022-1 [facility]GR[facility]I 08-12 [facility] GLUCONAT 00:00: n E 00 [place] [facility] Active Low Rash 2022-1 [facility] INGREDI 24 [facility] GLUCONAT 00:00: n E 00 [place] [facility] Active Low Rash 2022-1 [facility] INGREDI 08-12 [facility] GLUCONAT 00:00: n E 00 [place] [facility] Active Low Rash 2-1 [facility]GR[facility] 24 [facility] GLUCONAT 00:00: n E 00 [place] [facility] Active Low Rash 2021-1 [facility]GR[facility]I 08-12 [facility] GLUCONAT 00:00: n E 00 [place] [facility] Active Low Rash 2021-1 [facility]GR[facility] 08-12 [facility] GLUCONAT 00:00: n E 00 [place] [facility] Active Low Rash 2021-1 [facility]GR[facility] 08-12 [facility] GLUCONAT 00:00: n E 00 [place] [employer] Active Low Rash 2021- [facility]GREDI 08-12 [facility] GLUCONAT 00:00: n E 00 [place] [employer] Active Low Rash 2021- [facility] INGREDI 08-12 [facility] GLUCONAT 00:00: n E 00 [place] [employer] Active Low Rash 2021- [facility]GREDI 08-12 Anders[facility] GLUCONAT 00:00: n E 00 [place] [facility] Active Low Rash 2021-1 [facility]GR[facility] 08-12 Anders[facility] GLUCONAT 00:00: n E 00 [place] [facility] Active Low Rash 2021- [facility] INGREDI 08-12 Anders[facility] GLUCONAT 00:00: n E 00 [place] [facility] Active Low Rash 2021-1 [facility] INGREDI 08-12 [facility] GLUCONAT 00:00: n E 00 [place] [employer] Active Low Rash 2021-1 [facility] 08-12 [facility] GLUCONAT 00:00: n E 00 [place] [facility] Active Low Rash 2021-1 [facility]GR[facility]I 08-12 [facility] GLUCON[facility] 00:00: n E 00 [place] [facility] Active Low Rash 2021-1 [facility]GR[facility] 24 [facility] GLUCONAT 00:00: n E 00 [place] [facility] Active Low Rash 2021-1 [facility]GR[facility] 24 [facility] GLUCONAT 00:00: n E 00 [place] [facility] Active Low Rash 2021-1 [facility]GREDI 24 [facility]UCONAT 00:00: n E 00 [place] [employer] Active Low Rash 2021- [facility] INGREDI 24 [facility] GLUCONAT 00:00: n E 00 [place] [facility] Active Low Rash 2021- [facility] INGREDI 24 [facility] GLUCONAT 00:00: n E 00 [place] [facility] Active Low Rash 2021-1 [facility]GR[facility] 08-12 [facility] GLUCONAT 00:00: n E 00 [place] [facility] Active Low Rash 2021-1 [facility]GREDI 08-12 [facility] GLUCONAT 00:00: n E 00 [place] [facility] Active Low Rash 2021- [facility]GR[facility]I 08-12 [facility] GLUCONAT 00:00: n E 00 [place] [facility] Active Low Rash 2021- [facility] INGREDI 08-12 [facility] GLUCONAT 00:00: n E 00 [place] [facility] Active Low Rash 2021- [facility] INGREDI 08-12 [facility] 00:00: n E 00 [place] [facility] Active Low Rash 2021- [facility] INGREDI 08-12 [facility] GLUCONAT 00:00: n E 00 [place] [employer] Active Low Rash 2021- [facility] INGREDI 08-12 [facility] 00:00: n E 00 [place] [facility] Active Low Rash 2021- [facility]GREDI 08-12 [facility] GLUCONAT 00:00: n E 00 [place] [facility] Active Low Rash 2021-1 [facility]GR[facility]I 08-12 [facility] GLUCONAT 00:00: n E 00 [place] [facility] Active Low Rash 2021-1 [facility]GR[facility]I 08-12 [facility] GLUCONAT 00:00: n E 00 [place] [facility] Active Low Rash 2021-1 [facility] INGREDI 08-12 [facility] 00:00: n E 00 [place] [facility] Active Low Rash 2021-1 [facility]GR[facility] 24 [facility] GLUCON[facility] 00:00: n E 00 [place] [facility] Active Low Rash 2021-1 [facility]GR[facility] 24 [facility] GLUCONAT 00:00: n E 00 [place] [facility] Active Low Rash 2-1 [facility] INGREDI 24 [facility]UCON[facility] 00:00: n E 00 [place] [facility] Active Low Rash 2021-1 [facility] INGREDI 08-12 [facility] 00:00: n E 00 [place] [employer] Active Low Rash 2021- MD [facility] 24 [facility] GLUCONAT 00:00: n E 00 [place] [facility] Active Low Rash 2021- [facility] INGREDI 08-12 [facility] 00:00: n E 00 [place] [facility] Active Low Rash 2021-1 MD [facility] 08-12 [facility]UCON[facility] 00:00: n E 00 [place] [employer] Active Low Rash 2021- MD [facility] 08-12 [facility]UCONAT 00:00: n E 00 [place] [employer] Active Low Rash 2021- MD [facility] 08-12 [facility] GLUCONAT 00:00: n E 00 [place] [employer] Active Low Rash 2021- MD [facility] 08-12 [facility]UCONAT 00:00: n E 00 [place] [employer] Active Low Rash 2021- MD [facility] 08-12 [facility] GLU[facility] 00:00: n E 00 [place] [facility] Active Low Rash 2021- MD [facility] 08-12 [facility]UCONAT 00:00: n E 00 [place] [facility] Active Low Rash 2021- MD WEEKS[facility] INGREDI 08-12 [facility] GLUCONAT 00:00: n E 00 [place] [facility] Active Low Rash 2021- MD [facility] 08-12 [facility] GLUCONAT 00:00: n E 00 [place] [facility] Active Low Rash 2021-1 MD [facility] 08-12 [facility] GLUCONAT 00:00: n E 00 [place] [employer] Active Low Rash 2021- MD [facility] 08-12 [facility] GLUCONAT 00:00: n E 00 [place] [facility] Active Low Rash 2021-1 [facility] INGREDI 08-12 [facility] 00:00: n E 00 [place] [facility] Active Low Rash 2021- ID[facility] INGREDI 24 [facility] 00:00: n E 00 [place] [facility] Active Low Rash 2021-1 MD [facility] 24 [facility] GLUCON[facility] 00:00: n E 00 [place] [employer] Active Low Rash 2021-1 [facility] INGREDI 08-12 [facility] 00:00: n E 00 [place] [employer] Active Low Rash 2021- MD [facility] 08-12 [facility] GLUCON[facility] 00:00: n E 00 [place] [facility] Active Low Rash 2021- IDINE INGREDI 08-12 [facility] GLUCONAT 00:00: n E 00 [place] [facility] Active Low Rash 2021- IDIYOS[facility] INGREDI 08-12 [facility] GLUCONAT 00:00: n E 00 [place] [facility] Active Low Rash 2021- IDINE INGREDI 08-12 [facility] GLUCONAT 00:00: n E 00 [place] [facility] Active Low Rash 2021- ID[facility] INGREDI 08-12 [facility] 00:00: n E 00 [place] [employer] Active Low Rash 2021- MD [facility] 08-12 [facility]UCON[facility] 00:00: n E 00 [place] [employer] Active Low Rash 2021- MD [facility] 08-12 [facility] 00:00: n E 00 [place] [facility] Active Low Rash 2021- MD [facility] 08-12 [facility] 00:00: n E 00 [place] [facility] Active Low Rash 2021- MD [facility] 08-12 [facility]UCON[facility] 00:00: n E 00 [place] [facility] Active Low Rash 2021- ID[facility] INGREDI 08-12 [facility] 00:00: n E 00 [place] [employer] Active Low Rash 2021- MD [facility] 08-12 [facility] GLUCON[facility] 00:00: n E 00 [place] [employer] Active Low Rash 2021- MD [facility] 08-12 [facility] GLUCONAT 00:00: n E 00 [place] [facility] Active Low Rash 2021- IDINE INGREDI 08-12 [facility] GLUCONAT 00:00: n E 00 [place] [facility] Active Low Rash 2021- IDINE INGREDI 08-12 [facility] GLUCONAT 00:00: n E 00 [place] [facility] Active Low Rash 2021- ID[facility] INGREDI 08-12 [facility] 00:00: n E 00 [place] [facility] Active Low Rash 2021-1 [facility] INGREDI 08-12 [facility] GLUCON[facility] 00:00: n E 00 [place] [facility] Active Low Rash 2021-1 MD [facility] INGREDI 1-24 [facility] GLUCONAT 00:00: n E 00 [place] [facility] Active Low Rash 2021- MD [facility] 24 [facility]UCONAT 00:00: n E 00 [place] [facility] Active Low Rash 2021- ID[facility] INGREDI 08-12 [facility]UCON[facility] 00:00: n E 00 [place] [employer] Active Low Rash 2021- MD [facility] 08-12 [facility] GLUCON[facility] 00:00: n E 00 [place] [facility] Active Low Rash 2021- IDINE INGREDI 08-12 [facility]UCONAT 00:00: n E 00 [place] [employer] Active Low Rash 2021- MD [facility] 08-12 [facility] 00:00: n E 00 [place] [employer] Active Low Rash 2021- ID[facility] INGREDI 08-12 [facility] GLUCON[facility] 00:00: n E 00 [place] [employer] Active Low Rash 2021- MD [facility] 08-12 [facility] GLUCON[facility] 00:00: n E 00 [place] [facility] Active Low Rash 2021- IDINE INGREDI 08-12 [facility] GLU[facility] 00:00: n E 00 [place] [facility] Active Low Rash 2021- ID[facility]YOS[facility] INGREDI 08-12 [facility] 00:00: n E 00 [place] [facility] Active Low Rash 2021-1 MD [facility] 08-12 [facility]UCON[facility] 00:00: n E 00 [place] [facility] Active Low Rash 2021-1 MD [facility] 08-12 [facility] 00:00: n E 00 [place] [facility] Active Low Rash 2021-1 [facility] INGREDI 08-12 [facility] GLUCON[facility] 00:00: n E 00 [place] [facility] Active Low Rash 2021-1 [facility] INGREDI 24 [facility] GLUCON[facility] 00:00: n E 00 [place] [employer] Active Low Rash 2021- MD [facility] 24 [facility]UCON[facility] 00:00: n E 00 [place] [facility] Active Low Rash 2021-1 [facility] INGREDI 24 [facility] 00:00: n E 00 [place] [facility] Active Low Rash 2021- MD [facility]INE INGREDI 08-12 [facility] GLUCONAT 00:00: n E 00 [place] [facility] Active Low Rash 2021- IDINE INGREDI 08-12 [facility] GLUCONAT 00:00: n E 00 [place] [facility] Active Low Rash 2021- IDINE INGREDI 08-12 [facility] GLUCONAT 00:00: n E 00 [place] [facility] Active Low Rash 2021- IDINE INGREDI 08-12 [facility] GLUCON[facility] 00:00: n E 00 [place] [facility] Active Low Rash 2021- IDINE INGREDI 08-12 [facility] 00:00: n E 00 [place] [facility] Active Low Rash 2021- IDINE INGREDI 08-12 [facility] GLUCONAT 00:00: n E 00 [place] [facility] Active Low Rash 2021- IDIYOS[facility] INGREDI 08-12 [facility]UCONAT 00:00: n E 00 [place] [facility] Active Low Rash 2021- ID[facility]YOS[facility] INGREDI 08-12 [facility] 00:00: n E 00 [place] [facility] Active Low Rash 2021- IDINE INGREDI 08-12 [facility] GLUCONAT 00:00: n E 00 [place] [facility] Active Low Rash 2021- IDINE INGREDI 08-12 [facility] GLUCONAT 00:00: n E 00 [place] [facility] Active Low Rash 2021- IDINE INGREDI 08-12 [facility] GLUCONAT 00:00: n E 00 [place] [facility] Active Low Rash 2021- IDINE INGREDI 08-12 [facility] GLUCONAT 00:00: n E 00 [place] [facility] Active Low Rash 2021- IDINE INGREDI 08-12 [facility] GLUCONAT 00:00: n E 00 [place] [facility] Active Low Rash 2021- IDINE INGREDI 08-12 [facility] GLUCONAT 00:00: n E 00 [place] [facility] Active Low Rash 2021- IDIYOSHI INGREDI 08-12 [facility] GLUCONAT 00:00: n E 00 [place] [facility] Active Low Rash 2021-1 ID[facility] INGREDI 08-12 [facility] GLUCONAT 00:00: n E 00 [place] [facility] Active Low Rash 2021-1 IDIYOS[facility] INGREDI 1-24 [facility] GLUCONAT 00:00: n E 00 [place] [facility] Active Low Rash 2022-1 IDINE INGREDI 24 [facility] GLUCONAT 00:00: n E 00 [place] [facility] Active Low Rash 2021-1 IDINE INGREDI 24 [facility] GLUCONAT 00:00: n E 00 [place] [facility] Active Low Rash 2021-1 IDINE INGREDI 24 [facility] GLUCONAT 00:00: n E 00 [place] [facility] Active Low Rash 2021-1 IDINE INGREDI 08-12 [facility] GLUCONAT 00:00: n E 00 [place] [facility] Active Low Rash 2021- IDINE INGREDI 08-12 [facility] GLUCONAT 00:00: n E 00 [place] [facility] Active Low Rash 2021- IDINE INGREDI 08-12 [facility] GLUCONAT 00:00: n E 00 [place] [facility] Active Low Rash 2021-1 IDINE INGREDI 08-12 [facility] GLUCONAT 00:00: n E 00 [place] [facility] Active Low Rash 2021- IDINE INGREDI 08-12 [facility] GLUCONAT 00:00: n E 00 [place] [facility] Active Low Rash 2021-1 IDINE INGREDI 08-12 [facility] GLUCONAT 00:00: n E 00 [place] [facility] Active Low Rash 2021-1 IDINE INGREDI 08-12 [facility] GLUCONAT 00:00: n E 00 [place] [facility] Active Low Rash 2022-1 IDINE INGREDI 08-12 [facility] GLUCONAT 00:00: n E 00 [place] [facility] Active Low Rash 2-1 IDINE INGREDI 24 [facility] GLUCONAT 00:00: n E 00 [place] [facility] Active Low Rash 2022-1 IDINE INGREDI 24 [facility] GLUCONAT 00:00: n E 00 [place] [facility] Active Low Rash 2-1 IDINE INGREDI 24 [facility] GLUCONAT 00:00: n E 00 [place] [facility] Active Low Rash 2022-1 IDINE INGREDI 24 [facility] GLUCONAT 00:00: n E 00 [place] [facility] Active Low Rash 2022-1 IDINE INGREDI 24 [facility] GLUCONAT 00:00: n E 00 [place] [facility] Active Low Rash 2022-1 IDINE INGREDI 24 [facility] GLUCONAT 00:00: n E 00 [place] [facility] Active Low Rash 2021-1 IDINE INGREDI 08-12 [facility] GLUCONAT 00:00: n E 00 [place] [facility] Active Low Rash 2021-1 IDINE INGREDI 08-12 [facility] GLUCONAT 00:00: n E 00 [place] [facility] Active Low Rash 2021-1 IDINE INGREDI 08-12 [facility] GLUCONAT 00:00: n E 00 [place] [facility] Active Low Rash 2021- IDINE INGREDI 08-12 [facility] GLUCONAT 00:00: n E 00 [place] [facility] Active Low Rash 2021- IDIYOSHI INGREDI 08-12 [facility]UCONAT 00:00: n E 00 [place] [facility] Active Low Rash 2021- IDINE INGREDI 08-12 [facility] GLUCONAT 00:00: n E 00 [place] [facility] Active Low Rash 2021- IDINE INGREDI 08-12 [facility] GLUCONAT 00:00: n E 00 [place] [facility] Active Low Rash 2021-1 IDINE INGREDI 08-12 [facility] GLUCON[facility] 00:00: n E 00 [place] [facility] Active Low Rash 2021-1 IDINE INGREDI 08-12 [facility] GLUCONAT 00:00: n E 00 [place] [facility] Active Low Rash 2021-1 IDINE INGREDI 08-12 [facility] GLUCONAT 00:00: n E 00 [place] [facility] Active Low Rash 2-1 IDINE INGREDI 08-12 [facility] GLUCONAT 00:00: n E 00 [place] [facility] Active Low Rash 2-1 IDINE INGREDI 24 [facility] GLUCONAT 00:00: n E 00 [place] [facility] Active Low Rash 2022-1 IDINE INGREDI 24 [facility] GLUCONAT 00:00: n E 00 [place] [facility] Active Low Rash 2022-1 IDIYOSHI INGREDI 24 [facility] GLUCONAT 00:00: n E 00 [place] [facility] Active Low Rash 2022-1 IDINE INGREDI 24 [facility] GLUCONAT 00:00: n E 00 [place] [facility] Active Low Rash 2021-1 IDINE INGREDI 24 [facility] GLUCONAT 00:00: n E 00 [place] [facility] Active Low Rash 2021-1 IDINE INGREDI 24 [facility] GLUCONAT 00:00: n E 00 [place] [facility] Active Low Rash 2021-1 IDINE INGREDI 24 [facility] GLUCONAT 00:00: n E 00 [place] [facility] Active Low Rash 2021-1 IDINE INGREDI 08-12 [facility] GLU[facility]AT 00:00: n E 00 [place] [facility] Active Low Rash 2021- IDINE INGREDI 24 Anderso GLUCONAT 00:00: n E 00 [place] [facility] Active Low Rash 2021- IDIYOSHI INGREDI 08-12 [facility] GLUCONAT 00:00: n E 00 [place] [facility] Active Low Rash 2021- IDINE INGREDI 08-12 [facility] GLUCONAT 00:00: n E 00 [place] [facility] Active Low Rash 2021-1 IDINE INGREDI 08-12 Anderso GLUCONAT 00:00: n E 00 [place] [facility] Active Low Rash 2021- IDINE INGREDI 24 Anderso GLUCONAT 00:00: n E 00 [place] [facility] Active Low Rash 2021-1 IDIYOSHI INGREDI 08-12 Anderso GLUCONAT 00:00: n E 00 [place] [facility] Active Low Rash 2021-1 IDINE INGREDI 24 Anderso GLUCONAT 00:00: n E 00 [place] [facility] Active Low Rash 2021-1 IDINE INGREDI 24 Anderso GLUCONAT 00:00: n E 00 [place] [facility] Active Low Rash 2-1 IDINE INGREDI 24 Anderso GLUCONAT 00:00: n E 00 [place] [facility] Active Low Rash 2021-1 IDINE INGREDI 24 Anderso GLUCONAT 00:00: n E 00 [place] [facility] Active Low Rash 2022-1 IDIYOSHI INGREDI 24 Anderso GLUCONAT 00:00: n E 00 [place] [facility] Active Low Rash 2021-1 IDIYOSHI INGREDI 24 Anderso GLUCONAT 00:00: n E 00 [place] [facility] Active Low Rash 2022- IDIYOSHI INGREDI 24 Anderso GLUCONAT 00:00: n E 00 [place] [facility] Active Low Rash 2021- IDIYOSHI INGREDI 08-12 Anderso GLUCONAT 00:00: n E 00 [place] [facility] Active Low Rash 2021- IDIYOSHI INGREDI 08-12 Anderso GLUCONAT 00:00: n E 00 [place] [facility] Active Low Rash 2021- IDINE INGREDI 08-12 Anderso GLUCONAT 00:00: n E 00 [place] [facility] Active Low Rash 2021- IDIYOSHI INGREDI 08-12 Anderso GLUCONAT 00:00: n E 00 [place] [facility] Active Low Rash 2021- IDIYOSHI INGREDI 08-12 Anderso GLUCONAT 00:00: n E 00 [place] [facility] Active Low Rash 2021- MD [place] INGREDI 08-12 Anderso GLUCONAT 00:00: n E 00 [place] [facility] Active Low Rash 2021- IDIYOSHI INGREDI 08-12 Anderso GLUCONAT 00:00: n E 00 [place] [facility] Active Low Rash 2021- IDIYOSHI INGREDI 08-12 Anderso GLUCONAT 00:00: n E 00 [place] [facility] Active Low Rash 2021- IDINE INGREDI 08-12 Anderso GLUCONAT 00:00: n E 00 [place] [facility] Active Low Rash 2021- IDIYOSHI INGREDI 08-12 Anderso GLUCONAT 00:00: n E 00 [place] [facility] Active Low Rash 2021- IDIYOSHI INGREDI 08-12 Anderso GLUCONAT 00:00: n E 00 [place] [facility] Active Low Rash 2021-1 IDINE INGREDI 24 Anderso GLUCONAT 00:00: n E 00 [place] [facility] Active Low Rash 2021- IDIYOSHI INGREDI 24 Anderso GLUCONAT 00:00: n E 00 [place] [facility] Active Low Rash 2021-1 IDIYOSHI INGREDI 24 Anderso GLUCONAT 00:00: n E 00 [place] [facility] Active Low Rash 2021-1 IDIYOSHI INGREDI 08-12 Anderso GLUCONAT 00:00: n E 00 [place] [facility] Active Low Rash 2021-1 MD [place] INGREDI 24 Anderso GLUCONAT 00:00: n E 00 [place] [facility] Active Low Rash 2021- MD [place] INGREDI 08-12 Anderso GLUCONAT 00:00: n E 00 [place] [facility] Active Low Rash 2021- MD [place] INGREDI 08-12 Anderso GLUCONAT 00:00: n E 00 [place] [facility] Active Low Rash 2021- MD [place] INGREDI 08-12 Anderso GLUCONAT 00:00: n E 00 [place] [facility] Active Low Rash 2021- MD [place] INGREDI 08-12 Anderso GLUCONAT 00:00: n E 00 [place] [facility] Active Low Rash 2021- MD [place] INGREDI 08-12 Anderso GLUCONAT 00:00: n E 00 [place] [facility] Active Low Rash 2021- MD [place] INGREDI 08-12 Anderso GLUCONAT 00:00: n E 00 [place] [facility] Active Low Rash 2021- MD [place] INGREDI 08-12 Anderso GLUCONAT 00:00: n E 00 [place] [facility] Active Low Rash 2021- MD [place] INGREDI 08-12 Anderso GLUCONAT 00:00: n E 00 [place] [facility] Active Low Rash 2021- MD [place] INGREDI 08-12 Anderso GLUCONAT 00:00: n E 00 [place] [facility] Active Low Rash 2021- MD [place] INGREDI 08-12 Anderso GLUCONAT 00:00: n E 00 [place] [facility] Active Low Rash 2021- MD [place] INGREDI 08-12 Anderso GLUCONAT 00:00: n E 00 [place] [facility] Active Low Rash 2021- MD [place] INGREDI 08-12 Anderso GLUCONAT 00:00: n E 00 [place] [facility] Active Low Rash 2021- MD [place] INGREDI 08-12 Anderso GLUCONAT 00:00: n E 00 [place] [facility] Active Low Rash 2021- MD [place] INGREDI 08-12 Anderso GLUCONAT 00:00: n E 00 [place] [facility] Active Low Rash 2021- MD [place] INGREDI 08-12 Anderso GLUCONAT 00:00: n E 00 [place] [facility] Active Low Rash 2021- MD IDINE INGREDI 08-12 Anderso GLUCONAT 00:00: n E 00 [place] [facility] Active Low Rash 2021-07 IDINE INGREDI 08-12 Anderso GLUCONAT 00:00: n E 00 [place] [facility] Active Low Rash 2021-07 IDINE INGREDI 08-12 [facility] GLUCON[facility] 00:00: n E 00 [facility] Active Low Rash 2021-07 IDINE INGREDI 08-12 [facility] GLUCONAT 00:00: n E 00 [facility] Active Low Rash 2021-07 IDINE INGREDI 08-12 [facility] GLUCONAT 00:00: n E 00 [facility] Active Low Rash 2021-07 IDIYOSHI INGREDI 08-12 [facility] GLUCONAT 00:00: n E 00 [facility] Active Low Rash 2021-07 IDIYOSHI INGREDI 08-12 [facility] GLUCONAT 00:00: n E 00 [facility] Active Low Rash 2021-07 IDINE INGREDI 08-12 [facility] GLUCONAT 00:00: n E 00 [facility] [facility] Active Low Rash 2021- IDINE INGREDI 08-12 [facility] GLUCONAT 00:00: n E 00 [facility] Active Low Rash 2021- IDINE INGREDI 08-12 [facility] GLUCONAT 00:00: n E 00 [facility] [facility] Active Low Rash 2021- IDINE INGREDI 08-12 [facility] GLUCONAT 00:00: n E 00 [facility] [facility] Active Low Rash 2021- IDINE INGREDI 08-12 [facility] GLUCONAT 00:00: n E 00 [facility] [facility] Active Low Rash 2021- IDINE INGREDI 08-12 [facility] GLUCONAT 00:00: n E 00 [facility] [facility] Active Low Rash 2021- IDINE INGREDI 08-12 [facility] GLUCONAT 00:00: n E 00 [facility] [facility] Active Low Rash 2021- IDINE INGREDI 08-12 [facility] GLUCONAT 00:00: n E 00 [facility] Active Low Rash 2021- IDINE INGREDI 08-12 [facility] GLUCONAT 00:00: n E 00 [facility] Active Low Rash 2021-1 MD IDINE INGREDI 1-24 [facility] GLUCONAT 00:00: n E 00 [facility] [facility] Active Low Rash 2021- IDINE INGREDI 08-12 [facility] GLUCONAT 00:00: n E 00 [facility] [facility] Active Low Rash 2021- IDINE INGREDI 08-12 [facility] GLUCONAT 00:00: n E 00 [facility] [facility] Active Low Rash 2021- IDINE INGREDI 08-12 [facility] GLUCONAT 00:00: n E 00 [facility] [facility] Active Low Rash 2021- IDINE INGREDI 08-12 [facility] GLUCONAT 00:00: n E 00 [facility] [facility] Active Low Rash 2021- IDINE INGREDI 08-12 [facility] GLUCONAT 00:00: n E 00 [facility] [facility] Active Low Rash 2021- IDINE INGREDI 08-12 [facility] GLUCONAT 00:00: n E 00 [facility] [facility] Active Low Rash 2021- IDINE INGREDI 08-12 [facility]UCONAT 00:00: n E 00 [facility] [facility] Active Low Rash 2021- IDINE INGREDI 08-12 [facility] GLUCONAT 00:00: n E 00 [facility] [facility] Active Low Rash 2021- IDINE INGREDI 08-12 [facility] GLUCONAT 00:00: n E 00 [facility] [facility] Active Low Rash 2021- IDINE INGREDI 08-12 [facility] GLUCONAT 00:00: n E 00 [facility] [facility] Active Low Rash 2021- IDINE INGREDI 08-12 [facility] GLUCONAT 00:00: n E 00 [facility] [facility] Active Low Rash 2021- IDINE INGREDI 08-12 [facility] GLUCONAT 00:00: n E 00 [facility] [facility] Active Low Rash 2021-1 IDINE INGREDI 08-12 [facility] GLUCONAT 00:00: n E 00 [facility] Active Low Rash 2021- IDIYOSHI INGREDI 08-12 [facility]UCONAT 00:00: n E 00 [facility] Active Low Rash 2021- IDIYOSHI INGREDI 08-12 [facility] GLUCONAT 00:00: n E 00 [facility] Active Low Rash 2021- MD [place] INGREDI 1-24 [facility] GLUCONAT 00:00: n E 00 [facility] Active Low Rash 2021- IDINE INGREDI 08-12 [facility] GLUCONAT 00:00: n E 00 [facility] Active Low Rash 2021- IDIYOSHI INGREDI 08-12 [facility] GLUCONAT 00:00: n E 00 [facility] Active Low Rash 2021- IDIYOSHI INGREDI 08-12 [facility] GLUCONAT 00:00: n E 00 [facility] Active Low Rash 2021- IDINE INGREDI 08-12 [facility] GLUCONAT 00:00: n E 00 [facility] [facility] Active Low Rash 2021- IDIYOSHI INGREDI 08-12 [facility] GLUCONAT 00:00: n E 00 [facility] Active Low Rash 2021- IDIYOSHI INGREDI 08-12 [facility] GLUCONAT 00:00: n E 00 [facility] Active Low Rash 2021- IDIYOSHI INGREDI 08-12 [facility] GLUCONAT 00:00: n E 00 [facility] [facility] Active Low Rash 2021- IDINE INGREDI 08-12 [facility] GLUCONAT 00:00: n E 00 [place] [facility] Active Low Rash 2021-1 IDINE INGREDI 08-12 [facility] GLUCONAT 00:00: n E 00 [facility] [facility] Active Low Rash 2021- IDIYOSHI INGREDI 08-12 [facility]UCONAT 00:00: n E 00 [place] [facility] Active Low Rash 2021-1 IDIYOSHI INGREDI 08-12 [facility]UCONAT 00:00: n E 00 [facility] [facility] Active Low Rash 2021- IDINE INGREDI 08-12 [facility] GLUCONAT 00:00: n E 00 [place] [facility] Active Low Rash 2021-1 IDINE INGREDI 08-12 [facility] GLUCONAT 00:00: n E 00 [place] [facility] Active Low Rash 2021-1 IDIYOSHI INGREDI 08-12 [facility] GLUCONAT 00:00: n E 00 [place] [facility] Active Low Rash 2021-1 IDIYOSHI INGREDI 08-12 [facility] GLUCONAT 00:00: n E 00 [place] [facility] Active Low Rash 2021-1 MD [place] INGREDI 1-24 [facility] GLUCONAT 00:00: n E 00 [facility] Active Low Rash 2022-1 IDINE INGREDI 24 [facility] GLUCONAT 00:00: n E 00 [place] [facility] Active Low Rash 2022-1 IDINE INGREDI 24 [facility] GLUCONAT 00:00: n E 00 [place] [facility] Active Low Rash 2022-1 IDINE INGREDI 24 [facility] GLUCONAT 00:00: n E 00 [place] [facility] Active Low Rash 2022-1 IDINE INGREDI 24 [facility] GLUCONAT 00:00: n E 00 [place] [facility] Active Low Rash 2021-1 IDINE INGREDI 08-12 [facility] GLUCONAT 00:00: n E 00 [place] [facility] Active Low Rash 2021-1 IDINE INGREDI 08-12 [facility] GLUCONAT 00:00: n E 00 [place] [facility] Active Low Rash 2022-1 IDINE INGREDI 08-12 [facility] GLUCONAT 00:00: n E 00 [place] [facility] Active Low Rash 2022-1 IDINE INGREDI 08-12 [facility] GLUCONAT 00:00: n E 00 [place] [facility] Active Low Rash 2022-1 IDINE INGREDI 08-12 [facility] GLUCONAT 00:00: n E 00 [place] [facility] Active Low Rash 2022-1 IDINE INGREDI 08-12 [facility] GLUCONAT 00:00: n E 00 [place] [facility] Active Low Rash 2022-1 IDINE INGREDI 08-12 [facility] GLUCONAT 00:00: n E 00 [place] [facility] Active Low Rash 2022-1 IDINE INGREDI 24 [facility] GLUCONAT 00:00: n E 00 [place] [facility] Active Low Rash 2022-1 IDINE INGREDI 24 [facility] GLUCONAT 00:00: n E 00 [place] [facility] Active Low Rash 2022-1 IDINE INGREDI 24 [facility] GLUCONAT 00:00: n E 00 [place] [facility] Active Low Rash 2022-1 IDINE INGREDI 24 [facility] GLUCONAT 00:00: n E 00 [place] [facility] Active Low Rash 2022-1 IDINE INGREDI 24 [facility] GLUCONAT 00:00: n E 00 [place] [facility] Active Low Rash 2022-1 IDINE INGREDI 24 [facility] GLUCONAT 00:00: n E 00 [facility] [facility] Active Low Rash 202-1 IDIYOSHI INGREDI 08-12 [facility] GLUCONAT 00:00: n E 00 [facility] [facility] Active Low Rash 2021-1 IDINE INGREDI 08-12 [facility] GLUCONAT 00:00: n E 00 [place] [facility] Active Low Rash 2021-1 IDINE INGREDI 08-12 [facility] GLUCONAT 00:00: n E 00 [facility] [facility] Active Low Rash 2021- IDINE INGREDI 08-12 [facility] GLUCONAT 00:00: n E 00 [place] [facility] Active Low Rash 2021-1 IDIYOSHI INGREDI 08-12 [facility] GLUCONAT 00:00: n E 00 [facility] [facility] Active Low Rash 2021- IDINE INGREDI 08-12 [facility] GLUCONAT 00:00: n E 00 [place] [facility] Active Low Rash 2021-1 IDIYOSHI INGREDI 08-12 [facility] GLUCONAT 00:00: n E 00 [place] [facility] Active Low Rash 2021-1 IDINE INGREDI 08-12 [facility] GLUCONAT 00:00: n E 00 [place] [facility] Active Low Rash 2021-1 IDINE INGREDI 08-12 [facility] GLUCONAT 00:00: n E 00 [facility] [facility] Active Low Rash 2-1 IDINE INGREDI 08-12 [facility] GLUCONAT 00:00: n E 00 [facility] [facility] Active Low Rash 2022-1 IDINE INGREDI 08-12 [facility] GLUCONAT 00:00: n E 00 [place] [facility] Active Low Rash 2022-1 IDINE INGREDI 24 [facility] GLUCONAT 00:00: n E 00 [facility] [facility] Active Low Rash 2022-1 IDIYOSHI INGREDI 24 [facility] GLUCONAT 00:00: n E 00 [facility] [facility] Active Low Rash 2022-1 IDIYOSHI INGREDI 24 [facility] GLUCONAT 00:00: n E 00 [place] [facility] Active Low Rash 2022-1 IDINE INGREDI 24 [facility] GLUCONAT 00:00: n E 00 [facility] [facility] Active Low Rash 2021- IDINE INGREDI 24 [facility] GLUCONAT 00:00: n E 00 [place] [facility] Active Low Rash 2021-1 IDINE INGREDI 08-12 [facility] GLUCONAT 00:00: n E 00 [place] [facility] Active Low Rash 2021-1 IDINE INGREDI 24 [facility] GLUCONAT 00:00: n E 00 [facility] [facility] Active Low Rash 2021- IDINE INGREDI 08-12 [facility] GLUCONAT 00:00: n E 00 [facility] [facility] Active Low Rash 2021- IDINE INGREDI 08-12 [facility] GLUCONAT 00:00: n E 00 [facility] [facility] Active Low Rash 2021- IDIYOSHI INGREDI 08-12 [facility] GLUCONAT 00:00: n E 00 [facility] [facility] Active Low Rash 2021- IDINE INGREDI 08-12 [facility] GLUCONAT 00:00: n E 00 [facility] [facility] Active Low Rash 2021- IDINE INGREDI 08-12 [facility] GLUCONAT 00:00: n E 00 [facility] [facility] Active Low Rash 2021- IDINE INGREDI 08-12 [facility] GLUCONAT 00:00: n E 00 [place] [facility] Active Low Rash 2021-1 IDIYOSHI INGREDI 08-12 [facility] GLUCONAT 00:00: n E 00 [place] [facility] Active Low Rash 2021- IDINE INGREDI 24 [facility] GLUCONAT 00:00: n E 00 [place] [facility] Active Low Rash 2021-1 IDIYOSHI INGREDI 08-12 [facility] GLUCONAT 00:00: n E 00 [place] [facility] Active Low Rash 2021-1 IDINE INGREDI 24 [facility] GLUCONAT 00:00: n E 00 [place] [facility] Active Low Rash 2021-1 IDINE INGREDI 24 [facility] GLUCONAT 00:00: n E 00 [facility] [facility] Active Low Rash 2021-1 IDIYOSHI INGREDI 24 [facility] GLUCONAT 00:00: n E 00 [facility] [facility] Active Low Rash 2021- IDIYOSHI INGREDI 24 [facility] GLUCONAT 00:00: n E 00 [place] [facility] Active Low Rash 2021- MD [place] INGREDI 24 [facility] GLUCONAT 00:00: n E 00 [facility] Active Low Rash 2021- IDIYOSHI INGREDI 08-12 [facility] GLUCONAT 00:00: n E 00 [facility] [facility] Active Low Rash 2021-1 MD [place] INGREDI 08-12 [facility] GLUCONAT 00:00: n E 00 [facility] Active Low Rash 2021- IDIYOSHI INGREDI 08-12 [facility] GLUCONAT 00:00: n E 00 [facility] Active Low Rash 2021- IDIYOSHI INGREDI 08-12 [facility] GLUCONAT 00:00: n E 00 [facility] [facility] Active Low Rash 2021- MD [place] INGREDI 08-12 Anders[facility] GLUCONAT 00:00: n E 00 [place] [facility] Active Low Rash 2021- MD [place] INGREDI 08-12 [facility] GLUCONAT 00:00: n E 00 [place] [facility] Active Low Rash 2021- MD [place] INGREDI 08-12 [facility] GLUCONAT 00:00: n E 00 [facility] Active Low Rash 2021- IDIYOSHI INGREDI 08-12 [facility] GLUCONAT 00:00: n E 00 [place] [facility] Active Low Rash 2021- IDIYOSHI INGREDI 08-12 [facility] GLUCONAT 00:00: n E 00 [place] [facility] Active Low Rash 2021- MD [place] INGREDI 08-12 [facility] GLUCONAT 00:00: n E 00 [place] [facility] Active Low Rash 2021- MD [place] INGREDI 08-12 [facility] GLUCONAT 00:00: n E 00 [facility] [facility] Active Low Rash 2021-1 IDIYOSHI INGREDI 24 [facility] GLUCONAT 00:00: n E 00 [place] [facility] Active Low Rash 2021- MD [place] INGREDI 24 [facility] GLUCONAT 00:00: n E 00 [place] [facility] Active Low Rash 2021-1 MD [place] INGREDI 24 [facility] GLUCONAT 00:00: n E 00 [place] [facility] Active Low Rash 2021-1 MD [place] INGREDI 08-12 [facility] GLUCONAT 00:00: n E 00 [facility] [facility] Active Low Rash 2021-1 MD WEEKS[place] INGREDI 24 [facility] GLUCONAT 00:00: n E 00 [facility] [facility] Active Low Rash 2021- IDINE INGREDI 08-12 [facility] GLUCONAT 00:00: n E 00 [facility] [facility] Active Low Rash 2021- IDIYOSHI INGREDI 08-12 [facility] GLUCONAT 00:00: n E 00 [place] [facility] Active Low Rash 2021- IDINE INGREDI 08-12 [facility] GLUCONAT 00:00: n E 00 [place] [facility] Active Low Rash 2021- IDINE INGREDI 08-12 Anders[facility] GLUCONAT 00:00: n E 00 [place] [facility] Active Low Rash 2021- MD [place] INGREDI 08-12 [facility] GLUCONAT 00:00: n E 00 [place] [facility] Active Low Rash 2021- MD [place] INGREDI 08-12 [facility] GLUCONAT 00:00: n E 00 [facility] [facility] Active Low Rash 2021- MD WEEKSNE INGREDI 08-12 [facility] GLUCONAT 00:00: n E 00 [facility] [facility] Active Low Rash 2021- IDIYOSHI INGREDI 08-12 [facility] GLUCONAT 00:00: n E 00 [place] [facility] Active Low Rash 2021- MD [place] INGREDI 08-12 [facility] GLUCONAT 00:00: n E 00 [place] [facility] Active Low Rash 2021-1 MD [place] INGREDI 08-12 [facility] GLUCONAT 00:00: n E 00 [place] [facility] Active Low Rash 2021- MD [place] INGREDI 08-12 [facility] GLUCONAT 00:00: n E 00 [place] [facility] Active Low Rash 2021-1 MD [place] INGREDI 08-12 [facility] GLUCONAT 00:00: n E 00 [place] [facility] Active Low Rash 2021- IDINE INGREDI 08-12 [facility] GLUCONAT 00:00: n E 00 [place] [facility] Active Low Rash 2021- MD [place] INGREDI 08-12 [facility] GLUCONAT 00:00: n E 00 [place] [facility] Active Low Rash 2021-1 MD [place] INGREDI 08-12 [facility] GLUCONAT 00:00: n E 00 [place] [facility] Active Low Rash 2021-07 MD [place] INGREDI 08-12 [facility] GLUCONAT 00:00: n E 00 [place] [facility] Active Low Rash 2021-07 MD [place] INGREDI 08-12 [facility] GLUCONAT 00:00: n E 00 [facility] [facility] Active Low Rash 2021-07 IDIYOSHI INGREDI 08-12 [facility] GLUCONAT 00:00: n E 00 [facility] [facility] Active Low Rash 2021-07 MD [place] INGREDI 08-12 [facility] GLUCONAT 00:00: n E 00 [facility] [facility] Active Low Rash 2021- IDIYOSHI INGREDI 08-12 [facility] GLUCONAT 00:00: n E 00 [place] [facility] Active Low Rash 2021-07 MD [place] INGREDI 08-12 [facility] GLUCONAT 00:00: n E 00 [place] [facility] Active Low Rash 2021-07 MD [place] INGREDI 08-12 [facility] GLUCONAT 00:00: n E 00 [place] [facility] Active Low Rash 2021-07 MD [place] INGREDI 08-12 [facility] GLUCONAT 00:00: n E 00 [facility] [facility] Active Low Rash 2021- IDINE INGREDI 08-12 [facility] GLUCONAT 00:00: n E 00 [place] [facility] Active Low Rash 2021-07 MD WEEKSNE INGREDI 08-12 [facility] GLUCONAT 00:00: n E 00 [place] [facility] Active Low Rash 2021- MD [place] INGREDI 08-12 [facility] GLUCONAT 00:00: n E 00 [place] [facility] Active Low Rash 2021- MD [place] INGREDI 08-12 [facility] GLUCONAT 00:00: n E 00 [facility] [facility] Active Low Rash 2021- IDINE INGREDI 08-12 [facility] GLUCONAT 00:00: n E 00 [place] [facility] Active Low Rash 2021- IDINE INGREDI 08-12 [facility] GLUCONAT 00:00: n E 00 [place] [facility] Active Low Rash 2021- IDIYOSHI INGREDI 08-12 [facility] GLUCONAT 00:00: n E 00 [place] [facility] Active Low Rash 2021- IDINE INGREDI 08-12 [facility] GLUCONAT 00:00: n E 00 [place] [facility] Active Low Rash 2021- MD IDINE INGREDI 08-12 [facility] GLUCONAT 00:00: n E 00 [place] [facility] Active Low Rash 2021- IDINE INGREDI 08-12 [facility] GLUCONAT 00:00: n E 00 [place] [facility] Active Low Rash 2021- IDINE INGREDI 08-12 [facility] GLUCONAT 00:00: n E 00 [place] [facility] Active Low Rash 2021- IDINE INGREDI 08-12 [facility] GLUCONAT 00:00: n E 00 [place] [facility] Active Low Rash 2021- IDINE INGREDI 08-12 [facility] GLUCONAT 00:00: n E 00 [place] [facility] Active Low Rash 2021- IDIYOSHI INGREDI 08-12 [facility] GLUCONAT 00:00: n E 00 [facility] [facility] Active Low Rash 2021- IDIYOSHI INGREDI 08-12 [facility] GLUCONAT 00:00: n E 00 [place] [facility] Active Low Rash 2021- IDIYOSHI INGREDI 08-12 [facility] GLUCONAT 00:00: n E 00 [place] [facility] Active Low Rash 2021- IDINE INGREDI 08-12 [facility] GLUCONAT 00:00: n E 00 [place] [facility] Active Low Rash 2021- IDIYOSHI INGREDI 08-12 [facility] GLUCONAT 00:00: n E 00 [place] [facility] Active Low Rash 2021- IDINE INGREDI 08-12 [facility] GLUCONAT 00:00: n E 00 [place] [facility] Active Low Rash 2021- MD WEEKSNE INGREDI 08-12 [facility] GLUCONAT 00:00: n E 00 [place] [facility] Active Low Rash 2021- IDINE INGREDI 08-12 [facility] GLUCONAT 00:00: n E 00 [place] [facility] Active Low Rash 2021-1 IDINE INGREDI 08-12 [facility] GLUCONAT 00:00: n E 00 [place] [facility] Active Low Rash 2021- MD [place] INGREDI 08-12 [facility] GLUCONAT 00:00: n E 00 [place] [facility] Active Low Rash 2021-1 MD [place] INGREDI 08-12 [facility] GLUCONAT 00:00: n E 00 [facility] [facility] Active Low Rash 2021-1 MD [place] INGREDI 1-24 [facility] GLUCONAT 00:00: n E 00 [facility] [facility] Active Low Rash 2022-1 IDINE INGREDI 08-12 [facility] GLUCONAT 00:00: n E 00 [facility] [facility] Active Low Rash 2021- IDIYOSHI INGREDI 08-12 [facility] GLUCONAT 00:00: n E 00 [facility] [facility] Active Low Rash 2021-1 IDIYOSHI INGREDI 08-12 [facility] GLUCONAT 00:00: n E 00 [facility] [facility] Active Low Rash 2021- IDIYOSHI INGREDI 08-12 [facility] GLUCONAT 00:00: n E 00 [place] [facility] Active Low Rash 2021-1 IDINE INGREDI 08-12 [facility] GLUCONAT 00:00: n E 00 [facility] [facility] Active Low Rash 2021- IDIYOSHI INGREDI 08-12 [facility] GLUCONAT 00:00: n E 00 [place] [facility] Active Low Rash 2021-1 IDIYOSHI INGREDI 08-12 [facility] GLUCONAT 00:00: n E 00 [place] [facility] Active Low Rash 2021- IDINE INGREDI 08-12 [facility] GLUCONAT 00:00: n E 00 [place] [facility] Active Low Rash 2021-1 IDINE INGREDI 08-12 [facility] GLUCONAT 00:00: n E 00 [place] [facility] Active Low Rash 2021- IDIYOSHI INGREDI 08-12 [facility] GLUCONAT 00:00: n E 00 [facility] [facility] Active Low Rash 2022-1 IDINE INGREDI 08-12 [facility] GLUCONAT 00:00: n E 00 [place] [facility] Active Low Rash 2022-1 IDINE INGREDI 08-12 [facility] GLUCONAT 00:00: n E 00 [facility] [facility] Active Low Rash 2-1 IDINE INGREDI 24 [facility] GLUCONAT 00:00: n E 00 [facility] [facility] Active Low Rash 2022-1 IDIYOSHI INGREDI 08-12 [facility] GLUCONAT 00:00: n E 00 [place] [facility] Active Low Rash 2022-1 IDINE INGREDI 08-12 [facility] GLUCONAT 00:00: n E 00 [place] [facility] Active Low Rash 2022-1 MD [place] INGREDI 08-12 [facility] GLUCONAT 00:00: n E 00 [place] [facility] Active Low Rash 2022-1 IDINE INGREDI 24 [facility] GLUCONAT 00:00: n E 00 [place] [facility] Active Low Rash 2022-1 IDINE INGREDI 24 [facility] GLUCONAT 00:00: n E 00 [place] [facility] Active Low Rash 2022-1 IDINE INGREDI 08-12 [facility] GLUCONAT 00:00: n E 00 [place] [facility] Active Low Rash 2022-1 IDINE INGREDI 08-12 [facility] GLUCONAT 00:00: n E 00 [facility] [facility] Active Low Rash 202-1 IDINE INGREDI 08-12 [facility] GLUCONAT 00:00: n E 00 [place] [facility] Active Low Rash 202-1 IDINE INGREDI 08-12 [facility] GLUCONAT 00:00: n E 00 [place] [facility] Active Low Rash 202-1 IDINE INGREDI 08-12 [facility] GLUCONAT 00:00: n E 00 [place] [facility] Active Low Rash 202-1 IDINE INGREDI 08-12 [facility] GLUCONAT 00:00: n E 00 [place] [facility] Active Low Rash 2022-1 IDINE INGREDI 08-12 [facility] GLUCONAT 00:00: n E 00 [place] [facility] Active Low Rash 2022-1 IDINE INGREDI 08-12 [facility] GLUCONAT 00:00: n E 00 [place] [facility] Active Low Rash 2022-1 IDINE INGREDI 08-12 Anders[facility] GLUCONAT 00:00: n E 00 [place] [facility] Active Low Rash 2022-1 IDINE INGREDI 24 [facility] GLUCONAT 00:00: n E 00 [place] [facility] Active Low Rash 2022-1 IDINE INGREDI 24 [facility] GLUCONAT 00:00: n E 00 [place] [facility] Active Low Rash 2022-1 IDINE INGREDI 24 [facility] GLUCONAT 00:00: n E 00 [facility] [facility] Active Low Rash 2022-1 IDIYOSHI INGREDI 24 [facility] GLUCONAT 00:00: n E 00 [place] [facility] Active Low Rash 2022-1 IDIYOSHI INGREDI 24 [facility] GLUCONAT 00:00: n E 00 [place] [facility] Active Low Rash 2022-1 IDINE INGREDI 24 [facility] GLUCONAT 00:00: n E 00 [place] [facility] Active Low Rash 2022-1 IDIYOSHI INGREDI 08-12 [facility] GLUCONAT 00:00: n E 00 [place] [facility] Active Low Rash 2021-1 IDINE INGREDI 24 [facility] GLUCONAT 00:00: n E 00 [place] [facility] Active Low Rash 2021-1 IDIYOSHI INGREDI 08-12 [facility] GLUCONAT 00:00: n E 00 [place] [facility] Active Low Rash 2021-1 IDINE INGREDI 08-12 [facility] GLUCONAT 00:00: n E 00 [place] [facility] Active Low Rash 2021-1 IDIYOSHI INGREDI 08-12 [facility] GLUCONAT 00:00: n E 00 [place] [facility] Active Low Rash 2021- IDINE INGREDI 08-12 [facility] GLUCONAT 00:00: n E 00 [place] [facility] Active Low Rash 2021-1 IDIYOSHI INGREDI 08-12 [facility] GLUCONAT 00:00: n E 00 [place] [facility] Active Low Rash 2021-1 IDINE INGREDI 08-12 [facility] GLUCONAT 00:00: n E 00 [place] [facility] Active Low Rash 2021-1 IDIYOSHI INGREDI 08-12 [facility] GLUCONAT 00:00: n E 00 [place] [facility] Active Low Rash 2-1 IDINE INGREDI 24 [facility]o GLUCONAT 00:00: n E 00 [place] [facility] Active Low Rash 2022-1 IDIYOSHI INGREDI 24 [facility] GLUCONAT 00:00: n E 00 [place] [facility] Active Low Rash 2022-1 IDINE INGREDI 24 Anders[facility] GLUCONAT 00:00: n E 00 [place] [facility] Active Low Rash 2022-1 IDIYOSHI INGREDI 24 [facility]o GLUCONAT 00:00: n E 00 [place] [facility] Active Low Rash 2022-1 IDINE INGREDI 24 Anders[facility] GLUCONAT 00:00: n E 00 [place] [facility] Active Low Rash 2022-1 IDINE INGREDI 24 Anderso GLUCONAT 00:00: n E 00 [place] [facility] Active Low Rash 2021-1 IDINE INGREDI 24 Anderso GLUCONAT 00:00: n E 00 [place] [facility] Active Low Rash 2021-1 IDINE INGREDI 08-12 [facility] GLUCONAT 00:00: n E 00 [place] [facility] Active Low Rash 2021-1 IDINE INGREDI 24 Anderso GLUCONAT 00:00: n E 00 [place] [facility] Active Low Rash 2021-1 IDINE INGREDI 08-12 [facility] GLUCONAT 00:00: n E 00 [place] [facility] Active Low Rash 2021-1 IDINE INGREDI 08-12 Anders[facility] GLUCONAT 00:00: n E 00 [place] [facility] Active Low Rash 2021- IDIYOSHI INGREDI 08-12 [facility] GLUCONAT 00:00: n E 00 [place] [facility] Active Low Rash 2021- IDIYOSHI INGREDI 08-12 [facility] GLUCONAT 00:00: n E 00 [place] [facility]UG Active Low Rash 2021-1 IDIYOSHI INGREDI 08-12 [facility] GLUCONAT 00:00: n E 00 [place] [facility] Active Low Rash 2021-1 IDINE INGREDI 08-12 Anders[facility] GLUCONAT 00:00: n E 00 [place] [facility]UG Active Low Rash 2021-1 IDIYOSHI INGREDI 08-12 [facility] GLUCONAT 00:00: n E 00 [place] [facility]UG Active Low Rash 2021-1 IDINE INGREDI 08-12 Anders[facility] GLUCONAT 00:00: n E 00 [place] [facility] Active Low Rash 2021-1 IDIYOSHI INGREDI 08-12 [facility] GLUCONAT 00:00: n E 00 [place] [facility] Active Low Rash 2022-1 IDINE INGREDI 24 Anderso GLUCONAT 00:00: n E 00 [place] [facility] Active Low Rash 202-1 IDINE INGREDI 24 Anderso GLUCONAT 00:00: n E 00 [place] [facility] Active Low Rash 2022-1 IDIYOSHI INGREDI 24 [facility] GLUCONAT 00:00: n E 00 [place] [facility] Active Low Rash 2022-1 IDIYOSHI INGREDI 08-12 [facility] GLUCONAT 00:00: n E 00 [facility] [facility] Active Low Rash 2022- MD [facility] INGREDI 24 Anderso GLUCONAT 00:00: n E 00 [place] [facility] Active Low Rash 2021- MD [facility] INGREDI 08-12 [facility] GLUCONAT 00:00: n E 00 [place] [facility] Active Low Rash 2021-1 MD [facility] INGREDI 24 Anderso GLUCONAT 00:00: n E 00 [facility] [employer] Active Low Rash 2021- MD [facility] INGREDI 08-12 Anderso GLUCONAT 00:00: n E 00 [facility] [employer] Active Low Rash 2021- MD [facility] INGREDI 08-12 Anderso GLUCONAT 00:00: n E 00 [facility] [employer] Active Low Rash 2021- MD [facility] INGREDI 08-12 Anderso GLUCONAT 00:00: n E 00 [facility] [employer] Active Low Rash 2021- MD [facility] INGREDI 08-12 Anderso GLUCONAT 00:00: n E 00 [facility] [employer] Active Low Rash 2021- MD [facility] INGREDI 08-12 Anderso GLUCONAT 00:00: n E 00 [facility] [employer] Active Low Rash 2021- MD [facility] INGREDI 08-12 Anderso GLUCONAT 00:00: n E 00 [facility] [employer] Active Low Rash 2021- MD [facility] INGREDI 08-12 Anderso GLUCONAT 00:00: n E 00 [facility] [employer] Active Low Rash 2021-1 MD [facility] INGREDI 08-12 Anderso GLUCONAT 00:00: n E 00 [facility] [employer] Active Low Rash 2021- MD [facility] INGREDI 08-12 Anderso GLUCONAT 00:00: n E 00 [facility] [employer] Active Low Rash 2021-1 MD [facility] INGREDI 24 Anderso GLUCONAT 00:00: n E 00 [facility] [employer] Active Low Rash 2021-1 MD [facility] INGREDI 24 Anderso GLUCONAT 00:00: n E 00 [facility] [employer] Active Low Rash 2021-1 MD [facility] INGREDI 24 Anderso GLUCONAT 00:00: n E 00 [facility] [employer] Active Low Rash 2021-1 MD [facility] INGREDI 08-12 Anderso GLUCONAT 00:00: n E 00 [facility] [employer] Active Low Rash 2021-1 MD [facility] INGREDI 24 Anderso GLUCONAT 00:00: n E 00 [facility] [employer] Active Low Rash 2021- MD [facility] INGREDI 08-12 Anderso GLUCONAT 00:00: n E 00 [facility] [employer] Active Low Rash 2021- MD [facility] INGREDI 08-12 Anderso GLUCONAT 00:00: n E 00 [facility] [employer] Active Low Rash 2021- MD [facility] INGREDI 08-12 Anderso GLUCONAT 00:00: n E 00 [facility] Active Low Rash 2021- IDIYOSHI INGREDI 08-12 Anderso GLUCONAT 00:00: n E 00 [facility] [employer] Active Low Rash 2021- MD [facility] INGREDI 08-12 Anderso GLUCONAT 00:00: n E 00 [facility] Active Low Rash 2021- MD [place] INGREDI 08-12 Anderso GLUCONAT 00:00: n E 00 [facility] [employer] Active Low Rash 2021- MD [facility] INGREDI 08-12 Anderso GLUCONAT 00:00: n E 00 [facility] [employer] Active Low Rash 2021- MD [facility] INGREDI 08-12 Anderso GLUCONAT 00:00: n E 00 [facility] [employer] Active Low Rash 2021- MD [facility] INGREDI 08-12 Anderso GLUCONAT 00:00: n E 00 [facility] [employer] Active Low Rash 2021-1 MD [facility] INGREDI 08-12 Anderso GLUCONAT 00:00: n E 00 [facility] Active Low Rash 2021- MD [facility] INGREDI 08-12 Anderso GLUCONAT 00:00: n E 00 [facility] [employer] Active Low Rash 2021-1 MD [facility] INGREDI 08-12 Anderso GLUCONAT 00:00: n E 00 [facility] Active Low Rash 2021- MD [facility] INGREDI 08-12 Anderso GLUCONAT 00:00: n E 00 [facility] [employer] Active Low Rash 2021- MD [facility] INGREDI 08-12 Anderso GLUCONAT 00:00: n E 00 [facility] [employer] Active Low Rash 2021-1 MD [facility] INGREDI 08-12 Anderso GLUCONAT 00:00: n E 00 [facility] Active Low Rash 2021- MD [facility] INGREDI 08-12 Anderso GLUCONAT 00:00: n E 00 [employer] Active Low Rash 2021- MD [facility] INGREDI 08-12 Anderso GLUCONAT 00:00: n E 00 [facility] Active Low Rash 2021- IDIYOSHI INGREDI 08-12 Anderso GLUCONAT 00:00: n E 00 [facility] [employer] Active Low Rash 2021- MD [facility] INGR[facility]I 08-12 Anderso GLUCONAT 00:00: n E 00 [facility] Active Low Rash 2021- IDIYOSHI INGREDI 08-12 Anderso GLUCONAT 00:00: n E 00 [facility] [employer] Active Low Rash 2021- MD [facility] INGREDI 08-12 Anderso GLUCONAT 00:00: n E 00 [facility] [employer] Active Low Rash 2021- MD [facility] INGREDI 08-12 Anderso GLUCONAT 00:00: n E 00 [facility] Active Low Rash 2021- MD [facility] INGREDI 08-12 Anderso GLUCONAT 00:00: n E 00 [facility] Active Low Rash 2021- MD [facility] INGREDI 08-12 Anderso GLUCONAT 00:00: n E 00 [employer] Active Low Rash 2021- IDIYOSHI INGREDI 08-12 Anderso GLUCONAT 00:00: n E 00 [employer] Active Low Rash 2021- MD [facility] INGREDI 08-12 Anderso GLUCONAT 00:00: n E 00 [employer] Active Low Rash 2021- MD [facility] INGREDI 08-12 Anderso GLUCONAT 00:00: n E 00 [facility] [employer] Active Low Rash 2021- IDINE INGREDI 08-12 Anderso GLUCONAT 00:00: n E 00 [facility] [employer] Active Low Rash 2021-1 IDINE INGREDI 08-12 [facility] 00:00: n E 00 [facility] Active Low Rash 2021- MD [facility] INGREDI 08-12 [facility] 00:00: n E 00 [facility] Active Low Rash 2021-1 IDIYOSHI INGREDI 08-12 [facility] 00:00: n E 00 [facility] Active Low Rash 2021- MD IDINE INGREDI 08-12 [facility] 00:00: n E 00 [facility] Active Low Rash 2021- IDINE INGREDI 08-12 [facility] 00:00: n E 00 [facility] Active Low Rash 2021- IDINE INGREDI 08-12 [facility] 00:00: n E 00 [facility] Active Low Rash 2021- IDINE INGREDI 08-12 [facility] 00:00: n E 00 [facility] Active Low Rash 2021- IDINE INGREDI 08-12 [facility] 00:00: n E 00 [facility] Active Low Rash 2021- IDINE INGREDI 08-12 [facility] 00:00: n E 00 [facility] Active Low Rash 2021- IDINE INGREDI 08-12 [facility] 00:00: n E 00 [facility] Active Low Rash 2021- IDINE INGREDI 08-12 [facility] 00:00: n E 00 [facility] Active Low Rash 2021- IDINE INGREDI 08-12 [facility] 00:00: n E 00 [facility] Active Low Rash 2021-1 IDINE INGREDI 08-12 [facility] 00:00: n E 00 [facility] Active Low Rash 2021- IDINE INGREDI 08-12 [facility] 00:00: n E 00 [facility] Active Low Rash 2021-1 IDINE INGREDI 08-12 [facility] 00:00: n E 00 [facility] Active Low Rash 2021-1 IDINE INGREDI 08-12 [facility]UCON[facility] 00:00: n E 00 [facility] Active Low Rash 2021-1 IDINE INGREDI 08-12 [facility] 00:00: n E 00 [facility] Active Low Rash 2021-1 IDIYOSHI INGREDI 08-12 [facility] 00:00: n E 00 [facility] Active Low Rash 2-1 IDINE INGREDI 08-12 [facility] 00:00: n E 00 [facility] Active Low Rash 2-1 IDIYOSHI INGREDI 08-12 [facility] 00:00: n E 00 [facility] Active Low Rash 2022-1 IDINE INGREDI 08-12 [facility] 00:00: n E 00 [facility] Active Low Rash 2021-1 IDINE INGREDI 08-12 [facility] 00:00: n E 00 [facility] Active Low Rash 2021-1 IDINE INGREDI 08-12 [facility] 00:00: n E 00 [facility] Active Low Rash 2021- IDINE INGREDI 08-12 [facility] 00:00: n E 00 [facility] Active Low Rash 2021-1 IDINE INGREDI 08-12 [facility] 00:00: n E 00 [facility] Active Low Rash 2021- IDIYOSHI INGREDI 08-12 [facility] 00:00: n E 00 [facility] Active Low Rash 2021-1 IDINE INGREDI 08-12 [facility] 00:00: n E 00 [facility] Active Low Rash 2021- IDINE INGREDI 08-12 [facility] 00:00: n E 00 [facility] Active Low Rash 2021-1 IDINE INGREDI 08-12 [facility] 00:00: n E 00 [facility] Active Low Rash 2021- IDINE INGREDI 08-12 [facility] 00:00: n E 00 [facility] Active Low Rash 2022-1 IDINE INGREDI 08-12 [facility] 00:00: n E 00 [facility] Active Low Rash 2021-1 IDINE INGREDI 08-12 [facility] 00:00: n E 00 [facility] Active Low Rash 2-1 IDINE INGREDI 24 [facility] 00:00: n E 00 [facility] Active Low Rash 2-1 IDIYOSHI INGREDI 08-12 [facility] 00:00: n E 00 [facility] Active Low Rash 2-1 IDIYOSHI INGREDI 24 [facility] 00:00: n E 00 [facility] Active Low Rash 2-1 IDIYOSHI INGREDI 08-12 [facility] 00:00: n E 00 [facility] Active Low Rash 2022-1 IDINE INGREDI 24 [facility] 00:00: n E 00 [facility] Active Low Rash 202-1 IDINE INGREDI 08-12 [facility] 00:00: n E 00 [facility] Active Low Rash 2022-1 IDINE INGREDI 08-12 [facility] 00:00: n E 00 [facility] Active Low Rash 202-1 IDINE INGREDI 08-12 [facility] 00:00: n E 00 [facility] Active Low Rash 2021-1 IDINE INGREDI 08-12 [facility] 00:00: n E 00 [facility] Active Low Rash 2021-1 IDINE INGREDI 08-12 [facility] 00:00: n E 00 [facility] Active Low Rash 2021-1 IDINE INGREDI 08-12 [facility] 00:00: n E 00 [facility] Active Low Rash 2021-1 IDINE INGREDI 08-12 [facility] 00:00: n E 00 [facility] Active Low Rash 2022-1 IDINE INGREDI 08-12 [facility] 00:00: n E 00 [facility] Active Low Rash 2022-1 IDINE INGREDI 08-12 [facility] 00:00: n E 00 [facility] Active Low Rash 2022-1 IDINE INGREDI 08-12 [facility] 00:00: n E 00 [facility] Active Low Rash 2022-1 IDINE INGREDI 08-12 [facility] 00:00: n E 00 [facility] Active Low Rash 2022-1 IDINE INGREDI 24 [facility] 00:00: n E 00 [facility] Active Low Rash 2022-1 IDINE INGREDI 08-12 [facility] 00:00: n E 00 [facility] Active Low Rash 2022-1 IDIYOSHI INGREDI 24 [facility] 00:00: n E 00 [facility] Active Low Rash 2022-1 IDIYOSHI INGREDI 08-12 [facility] 00:00: n E 00 [facility] Active Low Rash 2-1 IDINE INGREDI 24 [facility] 00:00: n E 00 [facility] Active Low Rash 2021-1 IDINE INGREDI 08-12 [facility] 00:00: n E 00 [facility] Active Low Rash 2021-1 IDINE INGREDI 08-12 [facility] 00:00: n E 00 [facility] Active Low Rash 2021-1 IDINE INGREDI 08-12 [facility] 00:00: n E 00 [facility] Active Low Rash 2021- IDINE INGREDI 08-12 [facility] 00:00: n E 00 [facility] Active Low Rash 2021- IDIYOSHI INGREDI 08-12 [facility] 00:00: n E 00 [facility] Active Low Rash 2021- IDINE INGREDI 08-12 [facility] 00:00: n E 00 [facility] Active Low Rash 2021-1 IDINE INGREDI 08-12 [facility] 00:00: n E 00 [facility] Active Low Rash 2021- IDINE INGREDI 08-12 [facility] 00:00: n E 00 [facility] Active Low Rash 2021-1 IDIYOSHI INGREDI 08-12 [facility] 00:00: n E 00 [facility] Active Low Rash 2021-1 IDINE INGREDI 08-12 [facility] 00:00: n E 00 [facility] Active Low Rash 2021-1 IDINE INGREDI 08-12 [facility] 00:00: n E 00 [facility] Active Low Rash 2021-1 IDINE INGREDI 24 [facility] 00:00: n E 00 [facility] Active Low Rash 2021-1 IDINE INGREDI 24 [facility] 00:00: n E 00 [facility] Active Low Rash 2021-1 IDIYOSHI INGREDI 24 [facility] 00:00: n E 00 [facility] Active Low Rash 2021- IDIYOSHI INGREDI 24 [facility] 00:00: n E 00 [facility] Active Low Rash 2021- IDINE INGREDI 24 [facility] 00:00: n E 00 [facility] Active Low Rash 2021-1 IDINE INGREDI 08-12 [facility] 00:00: n E 00 [facility] Active Low Rash 2021-1 IDIYOSHI INGREDI 08-12 [facility] 00:00: n E 00 [facility] Active Low Rash 2021- IDINE INGREDI 08-12 [facility] 00:00: n E 00 [facility] Active Low Rash 2021- IDIYOSHI INGREDI 08-12 [facility] 00:00: n E 00 [facility] Active Low Rash 2021- ID[facility]YOS[facility] INGREDI 08-12 [facility] 00:00: n E 00 [facility] Active Low Rash 2021- IDIYOSHI INGREDI 08-12 [facility] 00:00: n E 00 [facility] Active Low Rash 2021- IDIYOSHI INGREDI 08-12 [facility] 00:00: n E 00 [facility] Active Low Rash 2021- IDINE INGREDI 08-12 [facility] 00:00: n E 00 [facility] Active Low Rash 2021-1 IDINE INGREDI 08-12 [facility] 00:00: n E 00 [facility] Active Low Rash 2021-1 IDINE INGREDI 08-12 [facility] 00:00: n E 00 [facility] Active Low Rash 2021-1 IDIYOSHI INGREDI 08-12 [facility] 00:00: n E 00 [facility] Active Low Rash 2021-1 IDINE INGREDI 24 [facility] 00:00: n E 00 [facility] Active Low Rash 2021-1 IDINE INGREDI 24 [facility] 00:00: n E 00 [facility] Active Low Rash 2-1 IDIYOSHI INGREDI 24 [facility] 00:00: n E 00 [facility] Active Low Rash 2021-1 IDIYOSHI INGREDI 08-12 [facility] 00:00: n E 00 [facility] Active Low Rash 2021- MD [facility] INGREDI 24 [facility] 00:00: n E 00 [facility] Active Low Rash 2021- IDIYOSHI INGREDI 08-12 [facility] 00:00: n E 00 [facility] Active Low Rash 2021-1 MD [facility] INGREDI 08-12 [facility] 00:00: n E 00 [facility] Active Low Rash 2021- MD [facility] INGREDI 08-12 [facility] 00:00: n E 00 [facility] Active Low Rash 2021- MD [facility] INGREDI 08-12 [facility] 00:00: n E 00 [facility] Active Low Rash 2021- MD [facility] INGREDI 08-12 [facility]UCON[facility] 00:00: n E 00 [facility] Active Low Rash 2021- MD [facility] INGREDI 08-12 [facility] 00:00: n E 00 [facility] Active Low Rash 2021- MD [facility] INGREDI 08-12 [facility] 00:00: n E 00 [facility] Active Low Rash 2021- MD WEEKS[place] INGREDI 08-12 [facility]UCON[facility] 00:00: n E 00 [facility] Active Low Rash 2021- MD [facility] INGREDI 08-12 [facility] 00:00: n E 00 [facility] Active Low Rash 2021-1 MD [facility] INGREDI 08-12 [facility]UCON[facility] 00:00: n E 00 [facility] Active Low Rash 2021- MD [facility] INGREDI 08-12 [facility]UCON[facility] 00:00: n E 00 [facility] Active Low Rash 2021-1 IDIYOSHI INGREDI 08-12 [facility] 00:00: n E 00 [facility] Active Low Rash 2021- IDIYOSHI INGREDI 24 [facility] 00:00: n E 00 [facility] Active Low Rash 2021-1 MD [facility] INGREDI 24 [facility] 00:00: n E 00 [facility] Active Low Rash 2021-1 IDIYOSHI INGREDI 08-12 [facility]UCON[facility] 00:00: n E 00 [facility] Active Low Rash 2021- MD [facility] INGREDI 08-12 [facility] 00:00: n E 00 [facility] Active Low Rash 2021- IDINE INGREDI 08-12 [facility] 00:00: n E 00 [facility] Active Low Rash 2021- IDIYOSHI INGREDI 08-12 [facility] 00:00: n E 00 [facility] Active Low Rash 2021- IDINE INGREDI 08-12 [facility] 00:00: n E 00 [facility] Active Low Rash 2021- IDIYOSHI INGREDI 08-12 [facility] 00:00: n E 00 [facility] Active Low Rash 2021- MD [facility] INGREDI 08-12 [facility] 00:00: n E 00 [facility] Active Low Rash 2021- MD [facility] INGREDI 08-12 [facility] 00:00: n E 00 [facility] Active Low Rash 2021- MD [facility] INGREDI 08-12 [facility] 00:00: n E 00 [facility] Active Low Rash 2021- MD [facility] INGREDI 08-12 [facility] 00:00: n E 00 [facility] Active Low Rash 2021- IDIYOSHI INGREDI 08-12 [facility] 00:00: n E 00 [facility] Active Low Rash 2021- MD [facility] INGREDI 08-12 [facility] 00:00: n E 00 [facility] Active Low Rash 2021- MD [facility] INGREDI 08-12 [facility] 00:00: n E 00 [facility] Active Low Rash 2021- IDINE INGREDI 08-12 [facility] 00:00: n E 00 [facility] Active Low Rash 2021- IDINE INGREDI 08-12 [facility] 00:00: n E 00 [facility] Active Low Rash 2021- IDIYOSHI INGREDI 08-12 [facility] 00:00: n E 00 [facility] Active Low Rash 2021-1 IDIYOSHI INGREDI 08-12 [facility] 00:00: n E 00 [facility] Active Low Rash 2021-1 MD IDINE INGREDI 1-24 [facility] 00:00: n E 00 [facility] Active Low Rash 2021- MD [facility] INGREDI 24 [facility] 00:00: n E 00 [facility] Active Low Rash 2021- IDIYOSHI INGREDI 08-12 [facility] 00:00: n E 00 [facility] Active Low Rash 2021- MD [facility] INGREDI 08-12 [facility] 00:00: n E 00 [facility] Active Low Rash 2021- IDINE INGREDI 08-12 [facility] 00:00: n E 00 [facility] Active Low Rash 2021- MD [facility] INGREDI 08-12 [facility] 00:00: n E 00 [facility] Active Low Rash 2021- IDIYOSHI INGREDI 08-12 [facility] 00:00: n E 00 [facility] Active Low Rash 2021- MD [facility] INGREDI 08-12 [facility] 00:00: n E 00 [facility] Active Low Rash 2021- IDINE INGREDI 08-12 [facility] 00:00: n E 00 [facility] Active Low Rash 2021- IDIYOSHI INGREDI 08-12 [facility] 00:00: n E 00 [facility] Active Low Rash 2021-1 MD [facility] INGREDI 08-12 [facility] 00:00: n E 00 [facility] Active Low Rash 2021-1 MD [facility] INGREDI 08-12 [facility] 00:00: n E 00 [facility] Active Low Rash 2021-1 IDINE INGREDI 08-12 [facility] 00:00: n E 00 [facility] [facility] Active Low Rash 2021-1 IDINE INGREDI 24 [facility] 00:00: n E 00 [facility] [facility] Active Low Rash 2021- MD [facility] INGREDI 24 [facility] 00:00: n E 00 [facility] Active Low Rash 2021-1 IDIYOSHI INGREDI 24 [facility] 00:00: n E 00 [facility] [facility] Active Low Rash 2021- MD IDINE INGREDI 08-12 [facility] 00:00: n E 00 [facility] Active Low Rash 2021- IDINE INGREDI 08-12 [facility] 00:00: n E 00 [facility] Active Low Rash 2021- IDINE INGREDI 08-12 [facility] 00:00: n E 00 [facility] Active Low Rash 2021- IDINE INGREDI 08-12 [facility] 00:00: n E 00 [facility] Active Low Rash 2021- IDINE INGREDI 08-12 [facility] 00:00: n E 00 [facility] Active Low Rash 2021- IDINE INGREDI 08-12 [facility] 00:00: n E 00 [facility] Active Low Rash 2021- IDIYOSHI INGREDI 08-12 [facility] 00:00: n E 00 [facility] Active Low Rash 2021- IDIYOSHI INGREDI 08-12 [facility] 00:00: n E 00 [facility] Active Low Rash 2021- IDINE INGREDI 08-12 [facility] 00:00: n E 00 [facility] Active Low Rash 2021- IDINE INGREDI 08-12 [facility] GLUCON[facility] 00:00: n E 00 [facility] Active Low Rash 2021- IDINE INGREDI 08-12 [facility] 00:00: n E 00 [facility] Active Low Rash 2021- IDINE INGREDI 08-12 [facility] 00:00: n E 00 [facility] Active Low Rash 2021- IDINE INGREDI 08-12 [facility] 00:00: n E 00 [facility] Active Low Rash 2021- IDINE INGREDI 08-12 [facility] GLUCON[facility] 00:00: n E 00 [facility] Active Low Rash 2021- IDIYOSHI INGREDI 08-12 [facility] 00:00: n E 00 [facility] Active Low Rash 2021-1 IDIYOSHI INGREDI 08-12 [facility] 00:00: n E 00 [facility] Active Low Rash 2021-1 IDIYOSHI INGREDI 1-24 [facility] 00:00: n E 00 [facility] Active Low Rash 2022-1 IDINE INGREDI 24 [facility] 00:00: n E 00 [facility] Active Low Rash 2021-1 IDINE INGREDI 24 [facility] 00:00: n E 00 [facility] [facility] Active Low Rash 2021-1 IDINE INGREDI 24 [facility] 00:00: n E 00 [facility] Active Low Rash 2021-1 IDINE INGREDI 08-12 [facility] 00:00: n E 00 [facility] Active Low Rash 2021- IDINE INGREDI 08-12 [facility] 00:00: n E 00 [facility] Active Low Rash 2021- IDINE INGREDI 08-12 [facility] 00:00: n E 00 [facility] Active Low Rash 2021-1 IDINE INGREDI 08-12 [facility] 00:00: n E 00 [facility] [facility] Active Low Rash 2021- IDINE INGREDI 08-12 [facility] 00:00: n E 00 [facility] [facility] Active Low Rash 2021-1 IDINE INGREDI 08-12 [facility] 00:00: n E 00 [facility] Active Low Rash 2021-1 IDINE INGREDI 08-12 [facility] 00:00: n E 00 [facility] Active Low Rash 2022-1 IDINE INGREDI 08-12 [facility] 00:00: n E 00 [facility] Active Low Rash 2-1 IDINE INGREDI 24 [facility] 00:00: n E 00 [facility] [facility] Active Low Rash 2022-1 IDINE INGREDI 24 [facility] 00:00: n E 00 [facility] [facility] Active Low Rash 2-1 IDINE INGREDI 24 [facility] 00:00: n E 00 [facility] [facility] Active Low Rash 2022-1 IDINE INGREDI 24 [facility] 00:00: n E 00 [facility] [facility] Active Low Rash 2022-1 IDINE INGREDI 24 [facility] 00:00: n E 00 [facility] [facility] Active Low Rash 2022-1 IDINE INGREDI 24 [facility] 00:00: n E 00 [facility] Active Low Rash 2021-1 IDINE INGREDI 08-12 [facility] 00:00: n E 00 [facility] [facility] Active Low Rash 2021-1 IDINE INGREDI 08-12 [facility] 00:00: n E 00 [facility] [facility] Active Low Rash 2021-1 IDINE INGREDI 08-12 [facility] 00:00: n E 00 [facility] Active Low Rash 2021- IDINE INGREDI 08-12 [facility] 00:00: n E 00 [facility] Active Low Rash 2021- IDIYOSHI INGREDI 08-12 [facility] 00:00: n E 00 [facility] Active Low Rash 2021- IDINE INGREDI 08-12 [facility] 00:00: n E 00 [facility] Active Low Rash 2021- IDINE INGREDI 08-12 [facility] 00:00: n E 00 [facility] Active Low Rash 2021-1 IDINE INGREDI 08-12 [facility] 00:00: n E 00 [facility] [facility] Active Low Rash 2021-1 IDINE INGREDI 08-12 [facility] 00:00: n E 00 [facility] [facility] Active Low Rash 2021-1 IDINE INGREDI 08-12 [facility] 00:00: n E 00 [facility] [facility] Active Low Rash 2-1 IDINE INGREDI 08-12 [facility] 00:00: n E 00 [facility] [facility] Active Low Rash 2-1 IDINE INGREDI 24 [facility] 00:00: n E 00 [facility] Active Low Rash 2022-1 IDINE INGREDI 24 [facility]UCON[facility] 00:00: n E 00 [facility] Active Low Rash 2022-1 IDIYOSHI INGREDI 24 [facility] 00:00: n E 00 [facility] Active Low Rash 2022-1 IDINE INGREDI 24 [facility] 00:00: n E 00 [facility] [facility] Active Low Rash 2021-1 IDINE INGREDI 24 [facility]UCON[facility] 00:00: n E 00 [facility] [facility] Active Low Rash 2021-1 IDINE INGREDI 24 [facility] 00:00: n E 00 [facility] [facility] Active Low Rash 2021-1 IDINE INGREDI 24 [facility] GLUCONAT 00:00: n E 00 [facility] [facility] Active Low Rash 2021-1 IDINE INGREDI 08-12 [facility]UCON[facility] 00:00: n E 00 [facility] [facility] Active Low Rash 2021- IDINE INGREDI 24 [facility] GLUCONAT 00:00: n E 00 [facility] Active Low Rash 2021- IDIYOSHI INGREDI 08-12 [facility] 00:00: n E 00 [facility] Active Low Rash 2021- IDINE INGREDI 08-12 [facility] 00:00: n E 00 [facility] [facility] Active Low Rash 2021-1 IDINE INGREDI 08-12 [facility] GLUCONAT 00:00: n E 00 [facility] [facility] Active Low Rash 2021- IDINE INGREDI 24 [facility] GLUCONAT 00:00: n E 00 [facility] Active Low Rash 2021-1 IDIYOSHI INGREDI 08-12 [facility]UCON[facility] 00:00: n E 00 [facility] Active Low Rash 2021-1 IDINE INGREDI 24 [facility] GLUCONAT 00:00: n E 00 [facility] [facility] Active Low Rash 2021-1 IDINE INGREDI 24 [facility] GLUCONAT 00:00: n E 00 [facility] [facility] Active Low Rash 2-1 IDINE INGREDI 24 [facility] GLUCONAT 00:00: n E 00 [facility] [facility] Active Low Rash 2021-1 IDINE INGREDI 24 [facility] GLUCON[facility] 00:00: n E 00 [facility] Active Low Rash 2022-1 IDIYOSHI INGREDI 24 [facility] GLUCONAT 00:00: n E 00 [facility] Active Low Rash 2021-1 IDIYOSHI INGREDI 24 [facility] GLUCONAT 00:00: n E 00 [facility] Active Low Rash 2022- IDIYOSHI INGREDI 24 [facility]UCONAT 00:00: n E 00 [facility] Active Low Rash 2021- IDIYOSHI INGREDI 08-12 [facility] 00:00: n E 00 [facility] Active Low Rash 2021- IDIYOSHI INGREDI 08-12 [facility]UCONAT 00:00: n E 00 [facility] Active Low Rash 2021- IDINE INGREDI 08-12 [facility]UCONAT 00:00: n E 00 [facility] Active Low Rash 2021- IDIYOSHI INGREDI 08-12 [facility]UCON[facility] 00:00: n E 00 [facility] Active Low Rash 2021- IDIYOSHI INGREDI 08-12 [facility]UCON[facility] 00:00: n E 00 [facility] Active Low Rash 2021- MD [facility] INGREDI 08-12 [facility]UCONAT 00:00: n E 00 [facility] Active Low Rash 2021- IDIYOSHI INGREDI 08-12 [facility]UCONAT 00:00: n E 00 [facility] Active Low Rash 2021- IDIYOSHI INGREDI 08-12 [facility] GLUCONAT 00:00: n E 00 [facility] Active Low Rash 2021- IDINE INGREDI 08-12 [facility] GLUCONAT 00:00: n E 00 [facility] Active Low Rash 2021- IDIYOSHI INGREDI 08-12 [facility] GLUCONAT 00:00: n E 00 [facility] Active Low Rash 2021- IDIYOSHI INGREDI 08-12 [facility]UCONAT 00:00: n E 00 [facility] Active Low Rash 2021-1 IDINE INGREDI 24 [facility] GLUCONAT 00:00: n E 00 [facility] Active Low Rash 2021- IDIYOSHI INGREDI 24 [facility] GLUCONAT 00:00: n E 00 [facility] Active Low Rash 2021-1 IDIYOSHI INGREDI 24 [facility]UCONAT 00:00: n E 00 [facility] Active Low Rash 2021-1 IDIYOSHI INGREDI 08-12 [facility]UCON[facility] 00:00: n E 00 [facility] Active Low Rash 2021-1 MD [facility] INGREDI 24 [facility]UCONAT 00:00: n E 00 [facility] Active Low Rash 2021- MD [facility] INGREDI 08-12 [facility]UCON[facility] 00:00: n E 00 [facility] Active Low Rash 2021- MD [facility] INGREDI 08-12 [facility]UCON[facility] 00:00: n E 00 [facility] Active Low Rash 2021- MD [facility] INGREDI 08-12 [facility]UCONAT 00:00: n E 00 [facility] Active Low Rash 2021- MD [facility] INGREDI 08-12 [facility]UCON[facility] 00:00: n E 00 [facility] Active Low Rash 2021- MD [facility] INGREDI 08-12 [facility]UCON[facility] 00:00: n E 00 [facility] Active Low Rash 2021- MD [facility] INGREDI 08-12 [facility]UCON[facility] 00:00: n E 00 [facility] Active Low Rash 2021- MD [facility] INGREDI 08-12 [facility]UCONAT 00:00: n E 00 [facility] [facility] Active Low Rash 2021- MD [facility] INGREDI 08-12 [facility]UCONAT 00:00: n E 00 [facility] Active Low Rash 2021- MD [facility] INGREDI 08-12 [facility]CON[facility] 00:00: n E 00 [facility] [facility] Active Low Rash 2021- MD [facility] INGREDI 08-12 [facility] GLUCONAT 00:00: n E 00 [facility] Active Low Rash 2021- MD [facility] INGREDI 08-12 [facility]UCONAT 00:00: n E 00 [facility] Active Low Rash 2021- MD [facility] INGREDI 08-12 [facility]UCONAT 00:00: n E 00 [facility] Active Low Rash 2021- MD [facility] INGREDI 08-12 [facility] GLUCONAT 00:00: n E 00 [facility] Active Low Rash 2021- MD [facility]GR[facility]I 08-12 Anderso GLUCONAT 00:00: n E 00 [facility] [employer] Active Low Rash 2021- MD [facility]GR[facility]I 08-12 Anderso GLUCONAT 00:00: n E 00 [facility] [employer] Active Low Rash 2021- MD IDINE INGREDI 08-12 Anderso GLUCONAT 00:00: n E 00 [facility] [employer] Active Low Rash 2021-07 IDINE INGREDI 08-12 Anderso GLUCONAT 00:00: n E 00 [facility] [employer] Active Low Rash 2021-07 IDINE INGREDI 08-12 Anderso GLUCONAT 00:00: n E 00 [facility] [employer] Active Low Rash 2021-07 IDINE INGREDI 08-12 Anderso GLUCONAT 00:00: n E 00 [facility] [employer] Active Low Rash 2021-07 IDINE INGREDI 08-12 Anderso GLUCONAT 00:00: n E 00 [facility] [employer] Active Low Rash 2021-07 IDIYOSHI INGREDI 08-12 Anderso GLUCONAT 00:00: n E 00 [facility] [employer] Active Low Rash 2021-07 IDIYOSHI INGREDI 08-12 Anderso GLUCONAT 00:00: n E 00 [facility] [employer] Active Low Rash 2021-07 IDINE INGREDI 08-12 Anderso GLUCONAT 00:00: n E 00 [facility] [employer] Active Low Rash 2021- IDINE INGREDI 08-12 Anderso GLUCONAT 00:00: n E 00 [facility] [employer] Active Low Rash 2021- IDINE INGREDI 08-12 Anderso GLUCONAT 00:00: n E 00 [facility] [employer] Active Low Rash 2021- IDINE INGREDI 08-12 Anderso GLUCONAT 00:00: n E 00 [facility] [employer] Active Low Rash 2021- IDINE INGREDI 08-12 Anderso GLUCONAT 00:00: n E 00 [facility] [employer] Active Low Rash 2021- IDINE INGREDI 08-12 Anderso GLUCONAT 00:00: n E 00 [facility] [employer] Active Low Rash 2021- IDINE INGREDI 08-12 Anderso GLUCONAT 00:00: n E 00 [facility] [employer] Active Low Rash 2021- IDINE INGREDI 08-12 Anderso GLUCONAT 00:00: n E 00 [facility] [employer] Active Low Rash 2021- IDINE INGREDI 08-12 Anderso GLUCONAT 00:00: n E 00 [facility] [employer] Active Low Rash 2021-1 MD IDINE INGREDI 1-24 Anderso GLUCONAT 00:00: n E 00 [facility] [employer] Active Low Rash 2021- IDINE INGREDI 08-12 Anderso GLUCONAT 00:00: n E 00 [facility] [employer] Active Low Rash 2021- IDINE INGREDI 08-12 Anderso GLUCONAT 00:00: n E 00 [facility] [employer] Active Low Rash 2021- IDINE INGREDI 08-12 Anderso GLUCONAT 00:00: n E 00 [facility] [employer] Active Low Rash 2021- IDINE INGREDI 08-12 Anderso GLUCONAT 00:00: n E 00 [facility] [employer] Active Low Rash 2021- IDINE INGREDI 08-12 Anderso GLUCONAT 00:00: n E 00 [facility] [employer] Active Low Rash 2021- IDINE INGREDI 08-12 Anderso GLUCONAT 00:00: n E 00 [facility] [employer] Active Low Rash 2021- IDINE INGREDI 08-12 Anderso GLUCONAT 00:00: n E 00 [facility] [employer] Active Low Rash 2021- IDINE INGREDI 08-12 Anderso GLUCONAT 00:00: n E 00 [facility] [employer] Active Low Rash 2021- IDINE INGREDI 08-12 Anderso GLUCONAT 00:00: n E 00 [facility] [employer] Active Low Rash 2021- IDINE INGREDI 08-12 Anderso GLUCONAT 00:00: n E 00 [facility] [employer] Active Low Rash 2021- IDINE INGREDI 08-12 Anderso GLUCONAT 00:00: n E 00 [facility] [employer] Active Low Rash 2021- IDINE INGREDI 08-12 Anderso GLUCONAT 00:00: n E 00 [facility] [employer] Active Low Rash 2021-1 IDINE INGREDI 08-12 Anderso GLUCONAT 00:00: n E 00 [facility] [employer] Active Low Rash 2021- IDIYOSHI INGREDI 08-12 Anderso GLUCONAT 00:00: n E 00 [facility] [employer] Active Low Rash 2021- IDIYOSHI INGREDI 08-12 Anderso GLUCONAT 00:00: n E 00 [facility] [employer] Active Low Rash 2021- MD [facility]GR[facility] 1-24 Anderso GLUCONAT 00:00: n E 00 [facility] [employer] Active Low Rash 2021- IDINE INGREDI 08-12 Anderso GLUCONAT 00:00: n E 00 [facility] [employer] Active Low Rash 2021- IDIYOSHI INGREDI 08-12 Anderso GLUCONAT 00:00: n E 00 [facility] [employer] Active Low Rash 2021- IDIYOSHI INGREDI 08-12 Anderso GLUCONAT 00:00: n E 00 [facility] [employer] Active Low Rash 2021- IDINE INGREDI 08-12 Anderso GLUCONAT 00:00: n E 00 [facility] [employer] Active Low Rash 2021- IDIYOSHI INGREDI 08-12 Anderso GLUCONAT 00:00: n E 00 [facility] [employer] Active Low Rash 2021- IDIYOSHI INGREDI 08-12 Anderso GLUCONAT 00:00: n E 00 [facility] [employer] Active Low Rash 2021- IDIYOSHI INGREDI 08-12 Anderso GLUCONAT 00:00: n E 00 [facility] [employer] Active Low Rash 2021- IDINE INGREDI 08-12 Anderso GLUCONAT 00:00: n E 00 [facility] [employer] Active Low Rash 2021-1 IDINE INGREDI 08-12 Anderso GLUCONAT 00:00: n E 00 [facility] Active Low Rash 2021- IDIYOSHI INGREDI 08-12 Anderso GLUCONAT 00:00: n E 00 [facility] Active Low Rash 2021-1 IDIYOSHI INGREDI 08-12 Anderso GLUCONAT 00:00: n E 00 [facility] Active Low Rash 2021- IDINE INGREDI 08-12 Anderso GLUCONAT 00:00: n E 00 [facility] Active Low Rash 2021-1 IDINE INGREDI 08-12 Anderso GLUCONAT 00:00: n E 00 [facility] Active Low Rash 2021-1 IDIYOSHI INGREDI 08-12 Anderso GLUCONAT 00:00: n E 00 [facility] Active Low Rash 2021-1 IDIYOSHI INGREDI 08-12 Anderso GLUCONAT 00:00: n E 00 [facility] Active Low Rash 2021-1 MD [facility] INGREDI 1-24 Anderso GLUCONAT 00:00: n E 00 [facility] Active Low Rash 2022-1 IDINE INGREDI 24 Anderso GLUCONAT 00:00: n E 00 [facility] Active Low Rash 2022-1 IDINE INGREDI 24 Anderso GLUCONAT 00:00: n E 00 [facility] Active Low Rash 2022-1 IDINE INGREDI 24 Anderso GLUCONAT 00:00: n E 00 [facility] Active Low Rash 2022-1 IDINE INGREDI 24 Anderso GLUCONAT 00:00: n E 00 [facility] Active Low Rash 2021-1 IDINE INGREDI 08-12 Anderso GLUCONAT 00:00: n E 00 [facility] Active Low Rash 2021-1 IDINE INGREDI 08-12 Anderso GLUCONAT 00:00: n E 00 [facility] Active Low Rash 2022-1 IDINE INGREDI 08-12 Anderso GLUCONAT 00:00: n E 00 [facility] Active Low Rash 2022-1 IDINE INGREDI 08-12 Anderso GLUCONAT 00:00: n E 00 [facility] Active Low Rash 2022-1 IDINE INGREDI 08-12 Anderso GLUCONAT 00:00: n E 00 [facility] Active Low Rash 2022-1 IDINE INGREDI 08-12 Anderso GLUCONAT 00:00: n E 00 [facility] Active Low Rash 2022-1 IDINE INGREDI 08-12 Anderso GLUCONAT 00:00: n E 00 [facility] Active Low Rash 2022-1 IDINE INGREDI 24 Anderso GLUCONAT 00:00: n E 00 [facility] Active Low Rash 2022-1 IDINE INGREDI 24 Anderso GLUCONAT 00:00: n E 00 [facility] Active Low Rash 2022-1 IDINE INGREDI 24 Anderso GLUCONAT 00:00: n E 00 [facility] Active Low Rash 2022-1 IDINE INGREDI 24 Anderso GLUCONAT 00:00: n E 00 [facility] Active Low Rash 2022-1 IDINE INGREDI 24 Anderso GLUCONAT 00:00: n E 00 [facility] Active Low Rash 2022-1 IDINE INGREDI 24 Anderso GLUCONAT 00:00: n E 00 [facility] Active Low Rash 202-1 IDIYOSHI INGREDI 08-12 Anderso GLUCONAT 00:00: n E 00 [facility] Active Low Rash 2021-1 IDINE INGREDI 08-12 Anderso GLUCONAT 00:00: n E 00 [facility] Active Low Rash 2021-1 IDINE INGREDI 08-12 Anderso GLUCONAT 00:00: n E 00 [facility] Active Low Rash 2021- IDINE INGREDI 08-12 Anderso GLUCONAT 00:00: n E 00 [facility] Active Low Rash 2021-1 IDIYOSHI INGREDI 08-12 Anderso GLUCONAT 00:00: n E 00 [facility] Active Low Rash 2021- IDINE INGREDI 08-12 Anderso GLUCONAT 00:00: n E 00 [facility] Active Low Rash 2021-1 IDIYOSHI INGREDI 08-12 Anderso GLUCONAT 00:00: n E 00 [facility] Active Low Rash 2021-1 IDINE INGREDI 08-12 Anderso GLUCONAT 00:00: n E 00 [facility] Active Low Rash 2021-1 IDINE INGREDI 08-12 Anderso GLUCONAT 00:00: n E 00 [facility] Active Low Rash 2-1 IDINE INGREDI 08-12 Anderso GLUCONAT 00:00: n E 00 [facility] Active Low Rash 2022-1 IDINE INGREDI 08-12 Anderso GLUCONAT 00:00: n E 00 [facility] Active Low Rash 2022-1 IDINE INGREDI 24 Anderso GLUCONAT 00:00: n E 00 [facility] Active Low Rash 2022-1 IDIYOSHI INGREDI 24 Anderso GLUCONAT 00:00: n E 00 [facility] Active Low Rash 2022-1 IDIYOSHI INGREDI 24 Anderso GLUCONAT 00:00: n E 00 [facility] Active Low Rash 2022-1 IDINE INGREDI 24 Anderso GLUCONAT 00:00: n E 00 [facility] Active Low Rash 2021- IDINE INGREDI 24 Anderso GLUCONAT 00:00: n E 00 [facility] Active Low Rash 2021-1 IDINE INGREDI 08-12 Anderso GLUCONAT 00:00: n E 00 [facility] Active Low Rash 2021-1 IDINE INGREDI 24 Anderso GLUCONAT 00:00: n E 00 [facility] Active Low Rash 2021- IDINE INGREDI 08-12 Anderso GLUCONAT 00:00: n E 00 [facility] Active Low Rash 2021- IDINE INGREDI 08-12 Anderso GLUCONAT 00:00: n E 00 [facility] Active Low Rash 2021- IDIYOSHI INGREDI 08-12 Anderso GLUCONAT 00:00: n E 00 [facility] Active Low Rash 2021- IDINE INGREDI 08-12 Anderso GLUCONAT 00:00: n E 00 [facility] Active Low Rash 2021- IDINE INGREDI 08-12 Anderso GLUCONAT 00:00: n E 00 [facility] Active Low Rash 2021- IDINE INGREDI 08-12 Anderso GLUCONAT 00:00: n E 00 [facility] Active Low Rash 2021-1 IDIYOSHI INGREDI 08-12 Anderso GLUCONAT 00:00: n E 00 [facility] Active Low Rash 2021- IDINE INGREDI 24 Anderso GLUCONAT 00:00: n E 00 [facility] Active Low Rash 2021-1 IDIYOSHI INGREDI 08-12 Anderso GLUCONAT 00:00: n E 00 [facility] Active Low Rash 2021-1 IDINE INGREDI 24 Anderso GLUCONAT 00:00: n E 00 [facility] Active Low Rash 2021-1 IDINE INGREDI 24 Anderso GLUCONAT 00:00: n E 00 [facility] Active Low Rash 2021-1 IDIYOSHI INGREDI 24 Anderso GLUCONAT 00:00: n E 00 [facility] Active Low Rash 2021- IDIYOSHI INGREDI 24 Anderso GLUCONAT 00:00: n E 00 [facility] Active Low Rash 2021- MD [facility] INGREDI -24 Anderso GLUCONAT 00:00: n E 00 [facility] Active Low Rash 2021-1 MD [facility] INGREDI 24 Anderso GLUCONAT 00:00: n E 00 [facility] Active Low Rash 2021-1 MD [facility] INGREDI 24 Anderso GLUCONAT 00:00: n E 00 [facility] Active Low Rash 2021- MD [facility] INGR[facility]I 24 Anderso GLUCONAT 00:00: n E 00 [facility] Active Low Rash 2021-1 MD [facility] INGREDI 24 Anderso GLUCONAT 00:00: n E 00 [facility] Active Low Rash 2021- MD [facility] INGREDI 24 Anderso GLUCONAT 00:00: n E 00 [facility] Active Low Rash 2021-1 MD [facility] INGREDI 24 Anderso GLUCONAT 00:00: n E 00 [facility] Active Low Rash 2021-1 MD [facility] INGREDI 24 Anderso GLUCONAT 00:00: n E 00 [facility] Active Low Rash 2021-1 MD [facility] INGREDI 24 Anderso GLUCONAT 00:00: n E 00 [facility] Active Low Rash 2021-1 MD [facility] INGREDI 24 Anderso GLUCONAT 00:00: n E 00 [facility] Active Low Rash 2021-1 MD [facility] INGR[facility]I 24 Anderso GLUCONAT 00:00: n E 00 [facility] Active Low Rash 2021-1 MD [facility] INGREDI 24 Anderso GLUCONAT 00:00: n E 00 [facility] Active Low Rash 2021-1 MD [facility] INGREDI 24 Anderso GLUCONAT 00:00: n E 00 [facility] Active Low Rash 2021-1 MD [facility] INGREDI 24 Anderso GLUCONAT 00:00: n E 00 Medications This patient has no known medications. Vital Signs Vital Name Observation Time Observation Value Comments Source WEIGHT 2020-11-28 14:01:17 105.5 kg WEIGHT 2020-11-21 12:27:00 105.6 kg WEIGHT 2020-11-14 11:46:39 103.9 kg WEIGHT 2020-11-07 11:54:53 101.6 kg WEIGHT 2020-10-31 10:51:59 101.3 kg WEIGHT 2020-10-30 13:21:10 101.6 kg WEIGHT 2020-10-16 11:47:15 99.5 kg WEIGHT 2020-10-02 11:53:02 96 kg WEIGHT 2020-09-25 10:20:28 93.3 kg WEIGHT 2020-09-20 08:45:00 95.6 kg WEIGHT 2020-09-19 12:22:50 94.3 kg WEIGHT 2020-09-18 10:11:43 93.1 kg WEIGHT 2020-09-14 08:45:00 92.4 kg WEIGHT 2020-08-29 11:43:00 89.5 kg WEIGHT 2020-08-02 08:57:00 89.8 kg HEIGHT 2020-07-30 23:38:38 176 cm WEIGHT 2020-07-27 14:53:09 90.6 kg WEIGHT 2020-07-26 14:04:20 93.2 kg WEIGHT 2020-07-23 13:20:22 93.2 kg WEIGHT 2020-07-20 14:06:49 93.7 kg WEIGHT 2020-07-15 11:29:00 93.9 kg WEIGHT 2020-07-13 12:48:43 95.3 kg WEIGHT 2020-07-09 09:51:49 100.2 kg WEIGHT 2020-07-06 11:39:14 98.2 kg WEIGHT 2020-07-06 08:24:29 98.2 kg WEIGHT 2020 16:04:47 97.4 kg HEIGHT 2020-06-18 14:42:37 180 cm WEIGHT 2020-06-18 14:42:37 95.3 kg WEIGHT 2020-06-16 15:36:38 95.3 kg WEIGHT 2020-06-09 15:39:43 91.4 kg WEIGHT 2020-06-02 14:44:28 89.1 kg WEIGHT 2020-06-01 08:54:00 87.8 kg WEIGHT 2020-05-29 07:48:00 86.3 kg HEIGHT 2020-05-25 13:34:00 180 cm WEIGHT 2020-05-25 08:02:41 86.6 kg WEIGHT 2020-05-11 09:57:21 89 kg WEIGHT 2020-05-09 13:45:06 88.9 kg WEIGHT 2020-05-08 07:19:00 87.5 kg HEIGHT 2020-04-07 02:16:00 180.3 cm Procedures This patient has no known procedures. 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 MDA MDA [id number] 05:48:17 Anthony BRARERAMO jody 2022-06-[address] [facility] MDA MDA [id number] 22:05:40 Anthony BARRERA 2022-05-07 Outpatient SYSTEM, MDA MDA [id number] 09:55:21 PROVIDER Juan Joseashlyn vera 2020-05-30 Outpatient [facility], MDA MDA [id number] 14:36:03 PROVIDER Juan Joseashlyn vera 2020-04-19 [facility] MDA [id number] 21:43:04 GUANAKO Anderso jody 2020-04-11 Outpatient SYSTEM, MDA MDA [id number] 13:02:14 PROVIDER Juan Jose o jody 2020-04-08 [facility] MDA [id number] 09:10:56 GUANAKO Anderso jody 2023-05-27 2023-05-[address] [facility], MDA MDA [id number] 13:00:00 23:59:00 SAUL vera 2023-05-27 2023-05-[address] [facility] MDA MDA [id number] 13:56:31 16:47:00 Juan Jose BARRERAMO jody 2023-05-21 2023-05-21 Outpatient [facility], MDA MDA [id number] 19:36:31 19:36:31 SAUL Lrashlyn vera 2023-05-07 2023-05-[address] [facility] MDA MDA [id number] 13:24:32 13:24:32 Juan Jose BARRERA 2023-05-07 2023-05-[address] [facility] MDA MDA [id number] 13:24:32 13:24:32 HOLLY, [id number] Juan Jose vera 2023-05-07 2023-05-07 Outpatient [facility], MDA MDA [id number] 10:21:50 12:28:49 SHELLI vera 2023-05-06 2023-05-[address] [facility], MDA MDA [id number] 10:08:22 23:59:00 SAUL vera 2023-05-06 2023-05-[address] [facility] MDA MDA [id number] 08:25:58 10:06:21 Juan Jose BARRERA 2023-05-06 2023-05-[address] [facility], MDA MDA [id number] 07:15:00 09:53:00 SAUL vera 2023-05-06 2023-05-[address] [facility], MDA MDA [id number] 07:15:00 09:53:00 SAUL [id number] Juan Jose david vera 2023-04-23 2023-04-[address] [facility], MDA MDA [id number] 08:57:35 08:57:35 SAUL vera 2023-04-15 2023-04-15 Outpatient [facility], MDA MDA [id number] 12:19:37 15:11:18 HALINA vera 2023-03-11 2023-03-11 Outpatient [facility] MDA [id number] 08:22:58 10:26:34 Juan Jose vera 2023-03-04 2023-03-[address] [facility] MDA MDA [id number] 10:37:39 23:59:00 Juan Jose BARRERA 2023-02-25 2023-02-[address] [facility], MDA MDA [id number] 09:38:12 23:59:00 SAUL vera 2023-02-25 2023-02-[address] [facility] MDA MDA [id number] 10:46:43 12:15:25 Juan Jose BARRERA 2023-02-25 2023-02-[address] [facility] MDA MDA [id number] 08:36:49 09:37:00 Juan Jose BARRERA 2023-02-19 2023-02-[address] [facility] MDA MDA [id number] 08:19:52 23:59:00 Juan Jose BARRERA 2023-02-12 2023-02-[address] [facility] MDA MDA [id number] 08:40:00 23:59:00 Juan Jose BARRERA 2023-02-05 2023-02-[address] [facility], MDA MDA [id number] 09:07:45 23:59:00 SAUL vera 2023-02-05 2023-02-[address] [facility], MDA MDA [id number] 09:08:12 12:03:55 ASUL vera 2023-02-05 2023-02-[address] [facility] MDA MDA [id number] 08:00:00 09:06:00 Juan Jose BARRERA 2023-01-29 2023-01-[address] [facility] MDA MDA [id number] 13:38:08 23:59:00 Juan Jose BARRERA 2023-01-22 2023-01-[address] [facility], MDA MDA [id number] 15:40:12 23:59:00 SAUL vera 2023-01-22 2023-01-22 Outpatient [facility], MDA MDA [id number] 13:30:00 15:39:00 LASHON vera 2023-01-21 2023-01-[address] [facility] MDA MDA [id number] 12:20:00 23:59:00 Juan Jose BARRERA 2023-01-21 2023-01-[address] [facility] MDA MDA [id number] 10:58:45 12:40:35 Juan Jose BARRERA 2023-01-21 2023-01-21 Outpatient DIMITRI, MDA MDA [id number] 09:35:13 12:19:00 SAUL vera 2023-01-21 2023-01-21 Outpatient DIPIKA, MDA MDA [id number] 09:36:17 09:36:17 YA vera 2023-01-14 2023-01-17 Inpatient ER JACI, MDA Leukemia [id number] 09:59:00 12:34:00 KRISSY vera 2023-01-16 2023-01-16 Inpatient EL JACI, MDA MDA [id number] 16:19:22 16:35:11 KRISSY vera 2023-01-14 2023-01-14 Emergency [facility], MDA MDA [id number] 10:56:05 13:13:22 BRITTNEY vera 2023-01-14 2023-01-[address] [facility] MDA MDA [id number] 08:01:47 09:39:59 Juan Jose BARRERA 2023-01-04 2023-01-13 Inpatient ER JACI, MDA Leukemia [id number] 23:41:00 17:31:00 KRISSY vera 2023-01-08 2023-01-08 [facility] MDA MDA [id number] 14:35:32 16:46:37 LASHON vera 2023-01-07 2023-01-07 Inpatient EL DIANELYS RAUL MDA MDA [id number] 14:30:54 16:39:31 Juan Jose vera 2023-01-06 2023-01-06 Inpatient EL JERAMIEMBOS, RAUL MDA MDA [id number] 10:54:28 16:00:22 Juan Jose vera 2022-12-31 2022-12-31 Outpatient CAITLIN JACKSON MDA MDA [id number] 12:18:01 23:59:00 Juan Jose o jody 2022-12-31 2022-12-31 Outpatient [facility], MDA MDA [id number] 13:25:41 13:25:41 RAMU Cornejo justin n 2022-12-31 2022-12-31 Outpatient CAITLIN DEGROOT MDA MDA [id number] 11:55:37 13:17:38 Juan Jose o n 2022-12-31 2022-12-[address] [facility] MDA MDA [id number] 13:10:24 13:10:24 Juan Jose BARRERA n 2022-12-31 2022-12-31 Outpatient CAITLIN DEGROOT MDA MDA [id number] 09:00:00 12:17:00 Juan Jose o jody 2022-12-22 2022-12-29 Inpatient SUMEET, MDA Leukemia [id number] 22:06:00 16:36:00 EVERTON Lrers o jody 2022-12-26 2022-12-26 [facility] MDA [id number] 14:57:01 14:57:07 EVERTON Lrers o jody 2022-12-26 2022-12-26 Inpatient CAITLIN DEGROOT MDA MDA [id number] 09:47:03 11:46:41 Juan Jose o n 2022-12-22 2022-12-22 [facility] MDA [id number] 13:02:01 22:05:00 LASHON Lrers o jody 2022-12-12 2022-12-[address] [facility] MDA MDA [id number] 14:00:17 14:30:00 Juan Jose BARRERALERADAL vera 2022-12-10 2022-12-[address] [facility], MDA MDA [id number] 08:30:00 23:59:00 SAUL Lrers o jody 2022-12-10 2022-12-10 Outpatient EL DIMITRI, MDA MDA [id number] 09:45:02 11:37:55 SAUL Lrers o jody 2022-12-08 2022-12-08 Outpatient DIMITRI, MDA MDA [id number] 13:50:15 13:50:15 SAUL Lrers o jody 2022-12-03 2022-12-[address] [facility], MDA MDA [id number] 09:30:00 23:59:00 SAUL vera 2022-12-03 2022-12-[address] [facility] MDA MDA [id number] 13:12:05 13:12:05 Juan Jose BARRERA 2022-12-03 2022-12-[address] [facility], MDA MDA [id number] 11:22:06 11:22:06 SAUL vera 2022-12-01 2022-12-01 [facility] MDA [id number] 13:06:32 23:59:00 LASHON vera 2022-11-26 2022-11-26 Outpatient KELLY LOPEZ MDA MDA [id number] 10:00:00 23:59:00 Juan Jose vera 2022-11-26 2022-11-[address] [facility] MDA MDA [id number] 12:24:24 12:24:24 Juan Jose BARRERA 2022-11-26 2022-11-[address] [facility] MDA MDA [id number] 11:05:12 12:13:51 Juan Jose BARRERA 2022-11-13 2022-11-19 Inpatient ER SHORT, MDA Leukemia [id number] 15:22:00 15:59:00 JAMSHID vera 2022-11-18 2022-11-18 Inpatient EL SHORT, MDA MDA [id number] MD 08:54:49 09:04:18 JAMSHID vera 2022-11-18 2022-11-18 Inpatient EL GARDENIA, MDA MDA [id number] 05:50:19 06:02:55 ALCIDES vera 2022-11-13 2022-11-13 [facility] MDA [id number] 10:09:40 15:21:00 LASHON vera 2022-11-13 2022-11-13 Outpatient EL DIMITRI, MDA MDA [id number] 08:45:00 10:08:00 SAUL vera 2022-11-13 2022-11-[address] [facility], MDA MDA [id number] 09:49:59 09:49:59 SAUL vera 2022-10-28 2022-10-28 Outpatient [facility], MDA MDA [id number] 08:23:43 09:19:19 ELSY vera 2022-10-20 2022-10-[address] [facility] MDA MDA [id number] 13:50:09 23:59:00 Juan Jose BARRERA 2022-10-20 2022-10-[address] [facility], MDA MDA [id number] 07:28:53 07:28:53 SAUL vera 2022-10-15 2022-10-[address] [facility], MDA MDA [id number] 11:27:55 23:59:00 SAUL vera 2022-10-15 2022-10-[address] [facility] MDA MDA [id number] 12:20:22 17:44:43 Juan Jose BARRERA 2022-10-15 2022-10-[address] [facility] MDA MDA [id number] 09:40:00 11:26:00 Juan Jose BARRERA 2022-10-08 2022-10-[address] [facility] MDA MDA [id number] 08:53:12 23:59:00 Juan Jose BARRERA 2022-10-08 2022-10-[address] [facility], MDA MDA [id number] 07:15:00 08:52:00 SAUL vera 2022-10-08 2022-10-[address] [facility], MDA MDA [id number] 08:12:57 08:12:57 SAUL vera 2022-10-05 2022-10-05 Emergency ER ZAIDA, MDA Emergency [id number] 13:58:00 19:12:00 ALAN vera 2022-10-01 2022-10-[address] [facility] MDA MDA [id number] 08:40:00 23:59:00 Juan Jose BARRERAMO jody 2022-10-01 2022-10-01 Outpatient [facility], MDA MDA [id number] 08:24:19 08:39:00 SAUL vera 2022-10-01 2022-10-[address] [facility], MDA MDA [id number] 08:24:46 08:24:46 SAUL vera 2022-09-25 2022-09-[address] [facility] MDA MDA [id number] 08:20:00 23:59:00 Juan Jose BARRERAMO jody 2022-09-17 2022-09-[address] [facility] MDA MDA [id number] 13:59:40 23:59:00 Juan Jose BARRERAMO jody 2022-09-17 2022-09-[address] [facility] MDA MDA [id number] 12:40:40 17:13:37 Juan Jose BARRERAMO jody 2022-09-17 2022-09-[address] [facility], MDA MDA [id number] 10:56:19 13:58:00 SAUL vera 2022-09-17 2022-09-[address] [facility], MDA MDA [id number] 09:48:44 10:55:00 SAUL vera 2022-09-11 2022-09-[address] [facility] MDA MDA [id number] 09:34:23 23:59:00 Juan Jose BARRERAMO jody 2022-09-11 2022-09-[address] [facility] MDA MDA [id number] 09:09:52 09:33:00 Juan Jose BARRERAMO jody 2022-09-11 2022-09-[address] [facility] MDA MDA [id number] 09:10:51 09:10:51 Juan Jose BARRERAMO jody 2022-09-04 2022-09-[address] [facility] MDA MDA [id number] 09:21:55 23:59:00 Juan Jose BARRERA 2022-09-042022-09-[address] [facility] MDA MDA [id number] 08:56:29 09:20:00 Juan Jose BARRERA 2022-09-04 2022-09-[address] [facility] MDA MDA [id number] 08:56:55 08:56:55 Juan Jose BARRERA 2022-08-28 2022-08-[address] [facility] MDA MDA [id number] 09:41:06 23:59:00 Juan Jose BARRERA 2022-08-28 2022-08-[address] [facility], MDA MDA [id number] 08:48:00 09:40:00 SAUL vera 2022-08-28 2022-08-[address] [facility], MDA MDA [id number] 08:48:31 08:48:31 SAUL vera 2022-08-20 2022-08-[address] [facility], MDA MDA [id number] 12:46:05 23:59:00 SAUL vera 2022-08-20 2022-08-[address] [facility] MDA MDA [id number] 13:51:04 16:36:24 Juan Jose BARRERA 2022-08-20 2022-08-[address] [facility], MDA MDA [id number] 09:23:59 12:45:00 SAUL vera 2022-08-20 2022-08-[address] [facility] MDA MDA [id number] 08:20:00 09:22:00 Juan Jose BARRERA 2022-08-18 2022-08-[address] [facility] MDA MDA [id number] 08:37:02 23:59:00 Juan Jose BARRERA 2022-08-18 2022-08-[address] [facility] MDA MDA [id number] 08:37:37 08:37:37 Juan Jose BARRERA 2022-08-14 2022-08-[address] [facility] MDA MDA [id number] 09:15:52 23:59:00 Juan Jose BARRERA 2022-08-14 2022-08-[address] [facility] MDA MDA [id number] 09:16:17 09:16:17 Juan Jose BARRERA 2022-08-14 2022-08-[address] [facility] MDA MDA [id number] 08:20:00 09:14:00 Juan Jose BARRERA 2022-08-11 2022-08-[address] [facility], MDA MDA [id number] 08:50:18 23:59:00 SAUL vera 2022-08-11 2022-08-[address] [facility], MDA MDA [id number] 08:50:56 08:50:56 SAUL vera 2022-08-08 2022-08-[address] [facility] MDA MDA [id number] 08:49:12 23:59:00 Juan Jose BARRERA 2022-08-08 2022-08-[address] [facility], MDA MDA [id number] 08:25:35 08:48:00 SAUL vera 2022-08-08 2022-08-[address] [facility], MDA MDA [id number] 08:31:33 08:31:33 SAUL vera 2022-08-06 2022-08-[address] [facility], MDA MDA [id number] MD 11:50:32 23:59:00 SAUL vera 2022-08-06 2022-08-[address] [facility], MDA MDA [id number] 15:39:40 16:30:24 SAUL vera 2022-08-06 2022-08-[address] [facility] MDA MDA [id number] 12:14:49 14:04:25 Juan Jose BARRERA 2022-08-04 2022-08-04 Outpatient [facility]- MDA MDA [id number] 11:36:00 23:59:00 MIGUEL ARIAS 2022-08-04 2022-08-[address] [facility], MDA MDA [id number] MD 07:45:00 11:35:00 SAUL vera 2022-08-04 2022-08-[address] [facility], MDA MDA [id number] MD 09:02:33 10:55:03 SAUL vera 2022-08-01 2022-08-[address] [facility] MDA MDA [id number] MD 10:04:18 23:59:00 Juan Jose BARRERA 2022-08-01 2022-08-[address] [facility], MDA MDA [id number] MD 08:48:23 10:03:00 SAUL vera 2022-08-01 2022-08-[address] [facility], MDA MDA [id number] MD 08:49:15 08:49:15 SAUL vera 2022-07-30 2022-07-[address] [facility], MDA MDA [id number] 12:47:21 23:59:00 SAUL vera 2022-07-30 2022-07-[address] [facility] MDA MDA [id number] 14:58:25 23:01:21 Juan Jose BARRERA 2022-07-30 2022-07-[address] [facility], MDA MDA [id number] MD 11:23:56 12:46:00 SAUL vera 2022-07-29 2022-07-29 Outpatient [facility], MDA MDA [id number] 09:50:09 23:59:00 DESTINY vera 2022-07-29 2022-07-[address] [facility], MDA MDA [id number] 07:15:00 09:49:00 SAUL vera 2022-07-29 2022-07-[address] [facility] MDA MDA [id number] 08:20:47 08:20:47 Juan Jose BARRERA 2022-07-26 2022-07-26 Outpatient KELLY LOPEZ MDA MDA [id number] 07:00:00 23:59:00 Juan Jose vera 2022-07-26 2022-07-[address] [facility] MDA MDA [id number] 08:52:44 11:12:43 Juan Jose BARRERA n 2022-07-24 2022-07-24 Outpatient KESHIA COLLINS, MDA MDA [id number] 10:25:02 23:59:00 RAMU Cornejo justin n 2022-07-24 2022-07-[address] [facility] MDA MDA [id number] 09:40:32 10:24:00 Juan Jose BARRERA 2022-07-24 2022-07-[address] [facility] MDA MDA [id number] 08:30:00 09:39:00 Juan Jose BARRERA 2022-07-24 2022-07-[address] [facility] MDA MDA [id number] 08:33:48 08:33:48 Juan Jose BARRERA 2022-07-22 2022-07-22 Outpatient KESHIA MOSLEY, MDA MDA [id number] 13:35:57 23:59:00 SAUL vera 2022-07-22 2022-07-22 Outpatient KELLY WHELAN MDA MDA [id number] 08:30:00 13:34:00 Juan Jose vera 2022-07-22 2022-07-[address] [facility] MDA MDA [id number] 09:57:07 09:57:07 Juan Jose BARRERA 2022-06-25 2022-07-18 Inpatient KESHIA MOORE MDA Leukemia [id number] 19:49:00 14:05:00 PRITHVIRAJ And erso n 2022-07-13 2022-07-13 Inpatient KESHIA MOORE, MDA MDA [id number] 13:58:01 14:08:59 PRITHVIRAJ And erso n 2022-07-13 2022-07-13 Inpatient KESHIA MOORE, MDA MDA [id number] MD 11:09:57 12:17:07 PRITHVIRAJ And erso n 2022-07-10 2022-07-[address] [facility] MDA MDA [id number] 14:56:22 14:56:25 Juan Jose BARRERA 2022-07-03 2022-07-03 Outpatient ALBA, MDA MDA [id number] 14:14:38 16:28:41 LASHON vera 2022-06-30 2022-06-30 Outpatient JEY, MDA MDA [id number] 15:58:00 23:59:00 CHANDANA pena n 2022-06-30 2022-06-30 Inpatient [facility], MDA MDA [id number] MD 14:32:14 15:52:47 Traeo n 2022-06-27 2022-06-27 Outpatient [facility], MDA MDA [id number] 17:59:00 23:59:00 CHANDANA pena n 2022-06-25 2022-06-[address] [facility], MDA MDA [id number] MD 12:48:01 19:48:00 SAUL vera 2022-06-25 2022-06-[address] [facility] MDA MDA [id number] 14:49:23 17:01:37 Juan Jose BARRERA 2022-06-25 2022-06-[address] [facility], MDA MDA [id number] MD 07:48:24 12:47:00 SAUL vera 2022-06-25 2022-06-[address] [facility], MDA MDA [id number] 07:23:22 08:04:45 SAUL vera 2022-06-25 2022-06-25 Outpatient [facility], MDA MDA [id number] 07:45:50 07:47:00 JOSEY vera 2022-06-25 2022-06-[address] [facility], MDA MDA [id number] 07:08:28 07:08:28 SAUL vera 2022-06-25 2022-06-[address] [facility], MDA MDA [id number] 06:32:52 06:32:52 SAUL vera [address] [facility] MDA MDA [id number] 08:39:56 23:59:00 Juan Jose BARRERA 2022-06-20 2022-06-[address] [facility] MDA MDA [id number] 10:00:00 23:59:00 Juan Jose BARRERA 2022-06-20 2022-06-20 Outpatient EL DIMITRI, MDA MDA [id number] 09:30:00 09:59:00 SAUL vera 2022-06-18 2022-06-18 Outpatient EL ON LICENSE OF [facility] MDA MDA [id number] 08:30:25 23:59:00 Juan Jose BARRERA 2022-06-18 2022-06-18 Outpatient EL JAMAR, MDA MDA [id number] 07:58:38 08:29:00 JOSEY vera 2022-06-18 2022-06-18 Outpatient EL JAMAR, MDA MDA [id number] 07:59:01 07:59:01 JOSEY vera 2022-06-16 2022-06-16 Outpatient EL LUIS MIGUEL, MDA MDA [id number] 10:57:31 23:59:00 KEISHA vera 2022-06-16 2022-06-[address] [facility] MDA MDA [id number] 09:08:48 10:56:00 Juan Jose BARRERA 2022-06-16 2022-06-16 Outpatient EL CAITLIN JACKSON MDA MDA [id number] 08:14:27 09:07:00 Juan Jose vera 2022-06-16 2022-06-[address] [facility] MDA MDA [id number] 08:14:46 08:14:46 Juan Jose BARRERA 2022-06-11 2022-06-14 Inpatient ER ON LICENSE OF [facility] MDA Leukemia [id number] 08:10:00 18:40:00 Juan Jose BARRERA 2022-06-11 2022-06-11 Emergency EL MIGUEL, MDA MDA [id number] 09:42:26 10:14:29 FARZANEH vera 2022-06-11 2022-06-11 Emergency EL MIGUEL, MDA MDA [id number] 09:01:48 09:22:47 FARZANEH vera 2022-06-11 2022-06-11 [facility], [facility] MDA [id number] 07:36:22 08:09:00 SAUL vera 2022-06-11 2022-06-11 Outpatient DIMITRI, MDA MDA [id number] 07:37:09 07:37:09 SAUL vera 2022-06-10 2022-06-10 Outpatient KESHIA ROLDAN, MDA MDA [id number] 07:42:21 23:59:00 JOSEY vera 2022-06-10 2022-06-10 Outpatient JAMAR, MDA MDA [id number] 07:42:38 07:42:38 JOSEY vera 2022-06-04 2022-06-[address] [facility] MDA Leukemia [id number] 19:25:00 14:57:00 Juan Jose BARRERA 2022-06-06 2022-06-[address] [facility] MDA MDA [id number] 10:02:34 10:13:23 Juan Jose BARRERA 2022-06-05 2022-06-[address] [facility] MDA MDA [id number] 01:35:42 01:35:45 Juan Jose BARRERA 2022-06-04 2022-06-[address] [facility] MDA MDA [id number] 22:05:07 23:25:43 Juan Jose BARRERA 2022-06-04 2022-06-[address] [facility] MDA MDA [id number] 22:01:08 23:22:09 Juan Jose BARRERA 2022-06-04 2022-06-04 Outpatient [facility], MDA MDA [id number] 09:00:00 19:24:00 GT vera 2022-06-04 2022-06-[address] [facility] MDA MDA [id number] 12:05:31 14:42:21 Juan Jose BARRERA 2022-06-04 2022-06-04 Outpatient EL RIOS, MDA MDA [id number] MD 10:50:25 10:50:25 GT hernandez n 2022-06-03 2022-06-03 Outpatient [facility], MDA MDA [id number] MD 17:01:00 23:59:00 RAMUANDRE Lrmarcell anderson n 2022-06-03 2022-06-03 Outpatient [facility] MDA MDA [id number] MD 16:20:00 17:00:00 TONIA 2022-06-03 2022-06-03 Outpatient [facility], MDA MDA [id number] MD 09:49:42 16:19:00 NEHEMIAS vera 2022-06-03 2022-06-[address] [facility], MDA MDA [id number] 08:04:38 09:48:00 SAUL vera 2022-06-03 2022-06-03 Outpatient [facility], MDA MDA [id number] MD 08:58:51 08:58:51 ALEXI vera 2022-06-03 2022-06-03 Outpatient [facility], MDA MDA [id number] 07:16:06 08:03:00 HENRY vera 2022-06-02 2022-06-[address] [facility] MDA MDA [id number] 16:20:00 23:59:00 Juan Jose BARRERA 2022-06-02 2022-06-[address] [facility], MDA MDA [id number] MD 10:26:03 16:19:00 SAUL vera 2022-06-02 2022-06-[address] [facility], MDA MDA [id number] MD 08:21:19 10:25:00 SAUL Lrers david vera 2022-06-02 2022-06-02 Outpatient EL [facility], MDA MDA [id number] MD 08:59:13 10:04:03 EDILBERTO vera 2022-06-02 2022-06-[address] [facility], MDA MDA [id number] MD 07:54:41 07:54:41 SAUL Lrers david vera 2022-05-30 2022-05-[address] [facility] MDA MDA [id number] 06:53:36 23:59:00 Juan Jose BARRERA 2022-05-30 2022-05-[address] [facility] MDA MDA [id number] 07:41:31 15:25:38 Juan Jose BARRERA 2022-05-30 2022-05-[address] [facility] MDA MDA [id number] 09:53:13 09:53:13 Juan Jose BARRERA 2022-05-27 2022-05-[address] [facility] MDA MDA [id number] 11:35:06 23:59:00 Juan Jose BARRERA 2022-05-27 2022-05-27 Outpatient [facility], MDA MDA [id number] 09:45:00 11:34:00 MONICA Sepulveda so jody 2022-05-27 2022-05-27 Outpatient [facility], MDA MDA [id number] 11:00:03 11:00:03 MONICA Sepulveda so jody 2022-05-23 2022-05-[address] [facility] MDA MDA [id number] 13:00:00 23:59:00 Juan Jose BARRERA 2022-05-23 2022-05-23 Outpatient [facility] MDA MDA [id number] 11:40:37 12:59:00 Juan Jose vera 2022-05-23 2022-05-[address] [facility] MDA MDA [id number] 12:50:12 12:50:12 Juan Jose BARRERA 2022-05-23 2022-05-[address] [facility] MDA MDA [id number] 11:53:42 11:53:42 Juan Jose BARRERA 2022-05-21 2022-05-21 Outpatient [facility], MDA MDA [id number] 09:15:00 23:59:00 YA vera 2022-05-21 2022-05-[address] [facility] MDA MDA [id number] 13:18:45 17:32:19 Juan Jose BARRERA 2022-05-20 2022-05-20 Outpatient KESHIA BAR, MDA MDA [id number] 09:44:42 23:59:00 YA vera 2022-05-19 2022-05-19 Outpatient KESHIA BAR, MDA MDA [id number] 07:19:18 23:59:00 YA vera 2022-05-19 2022-05-19 Outpatient KESHIA BAR, MDA MDA [id number] 07:19:51 07:19:51 YA vera 2022-05-19 2022-05-19 [facility] MDA [id number] 07:12:29 07:18:00 LASHON vera 2022-05-16 2022-05-[address] [facility] MDA MDA [id number] 12:49:04 23:59:00 Juan Jose BARRERA 2022-05-15 2022-05-15 Outpatient REAGAN, MDA MDA [id number] 09:39:56 23:59:00 FERNY vera 2022-05-15 2022-05-15 Outpatient KESHIA BAR, MDA MDA [id number] 08:31:18 09:38:00 YA vera 2022-05-15 2022-05-15 Outpatient KESHIA BAR, MDA MDA [id number] 08:31:44 08:31:44 YA vera 2022-05-15 2022-05-[address] [facility] MDA MDA [id number] 07:27:42 08:30:00 Juan Jose BARRERA 2022-05-14 2022-05-[address] [facility] MDA MDA [id number] 15:10:00 23:59:00 Juan Jose BARRERA 2022-05-14 2022-05-14 Outpatient JAYLAN DONALDSON MDA MDA [id number] 14:00:29 15:09:00 Juan Jose vera 2022-05-13 2022-05-[address] [facility] MDA MDA [id number] 07:20:00 23:59:00 Juan Jose BARRERA 2022-05-12 2022-05-[address] [facility] MDA MDA [id number] 14:30:00 23:59:00 Juan Jose BARRERA 2022-05-12 2022-05-12 Outpatient KESHIA BAR, MDA MDA [id number] 11:12:24 14:29:00 YA vera 2022-05-12 2022-05-[address] [facility] MDA MDA [id number] 12:08:28 12:08:28 Juan Jose BARRERA 2022-05-12 2022-05-12 Outpatient KESHIA BAR, MDA MDA [id number] 06:45:00 11:11:00 YA vera 2022-05-12 2022-05-12 Outpatient KESHIA BAR, MDA MDA [id number] 10:51:43 10:51:43 YA vera 2022-05-01 2022-05-09 Inpatient ER REAGAN, MDA Leukemia [id number] 10:47:00 16:21:00 FERNY vera 2022-05-08 2022-05-08 Outpatient JAYLAN DONALDSON MDA MDA [id number] 13:51:03 15:06:28 Juan Jose vera 2022-05-05 2022-05-[address] [facility] MDA MDA [id number] 07:15:00 23:59:00 Juan Jose BARRERA 2022-05-05 2022-05-05 Inpatient ALBA, MDA MDA [id number] 10:24:16 11:59:19 LASHON vera 2022-05-03 2022-05-03 Inpatient GIOPATRIC, MDA MDA [id number] 19:33:21 19:43:47 CHRISTOPHER vera 2022-05-01 2022-05-01 Outpatient ALE, MDA MDA [id number] 08:22:45 10:46:00 BRITTNEY vera 2022-03-12 2022-03-[address] [facility] MDA MDA [id number] 12:42:17 15:54:03 Juan Jose BARRERALERMO n 2022-03-11 2022-03-11 Outpatient EL RIOS, MDA MDA [id number] 10:02:28 23:59:00 GT Lrers o n 2022-03-11 2022-03-11 Outpatient EL RIOS, MDA MDA [id number] 08:30:00 10:01:00 GT Lrers o n 2022-03-11 2022-03-11 Outpatient EL RIOS, MDA MDA [id number] 08:39:14 08:39:14 GT Lrers o n 2021-12-17 2021-12-[address] [facility] MDA MDA [id number] 12:22:52 14:16:10 Juan Jose BARRERA n 2021-12-17 2021-12-17 [facility] [id number] 08:51:05 10:28:00 GT vera 2021-12-17 2021-12-17 [facility] MDA [id number] 08:51:18 08:51:18 GT vera 2021-12-05 2021-12-05 Outpatient WON, MDA MDA [id number] 10:43:56 23:59:00 DARIO anderson n 2021-11-07 2021-11-07 Outpatient [facility], MDA MDA [id number] 07:41:12 23:59:00 DARIO vera 2021-11-06 2021-11-[address] [facility] MDA MDA [id number] 07:43:33 07:54:05 Juan Jose BARRERA n 2021-09-26 2021-09-26 Outpatient WON, MDA MDA [id number] 09:36:29 23:59:00 DARIO vera 2021-09-10 2021-09-10 Outpatient WON, MDA MDA [id number] 08:27:04 23:59:00 DARIO vera 2021-09-09 2021-09-[address] [facility] MDA MDA [id number] 08:30:33 08:39:41 Juan Jose BARRERA n 2021-09-03 2021-09-03 Outpatient EL RIOS, MDA MDA [id number] 14:33:34 23:59:00 GT vera 2021-09-03 2021-09-03 Outpatient EL CARITO, MDA MDA [id number] 10:55:00 14:32:00 YARELI vera 2021-09-03 2021-09-[address] [facility] MDA MDA [id number] 13:23:19 14:21:24 Juan Jose BARRERA n 2021-09-03 2021-09-03 Outpatient EL FABIOLA, MDA MDA [id number] 12:00:04 12:33:16 JAY vera 2021-09-03 2021-09-03 Outpatient LUIS MIGUEL, MDA MDA [id number] 08:15:00 10:54:00 KEISHA vera 2021-09-03 2021-09-03 Outpatient MARIA INES, MDA MDA [id number] 09:30:31 09:30:31 ELSY vera 2021-07-16 2021-07-16 Outpatient EL IBRAHIMA, MDA MDA [id number] 09:31:43 23:59:00 DARIO vera 2021-07-15 2021-07-15 Outpatient RIOS, MDA MDA [id number] 08:47:18 23:59:00 GT vera 2021-07-15 2021-07-[address] [facility] MDA MDA [id number] 09:22:35 10:02:27 Juan Jose BARRERA n 2021-07-15 2021-07-15 Outpatient EL RIOS, MDA MDA [id number] 08:47:38 08:47:38 GT vera 2021-06-11 2021-06-11 [facility] [id number] 10:19:17 23:59:00 GT vera 2021-06-11 2021-06-[address] [facility] MDA MDA [id number] 10:27:11 14:05:22 Juan Jose BARRERA n 2021-04-30 2021-04-30 Outpatient [facility] MDA MDA [id number] 09:32:35 23:59:00 ONNIKHIL jean n 2021-04-10 2021-04-10 Outpatient EL ZACH, MDA HN Med Onc [id number] 06:07:00 12:49:00 FRANCIS vera 2021-04-08 2021-04-08 Outpatient EL TABIJE, MDA MDA [id number] 08:16:38 08:27:52 [facility] Juan Jose hernandez n 2021-04-04 2021-04-04 Outpatient EL MDA MDA [id number] 07:02:44 07:02:44 Juan Jose vera 2021-04-03 2021-04-03 Outpatient EL WON, MDA MDA [id number] 09:36:49 09:48:51 DARIO anderson n 2021-03-29 2021-03-29 Outpatient EL WON, MDA MDA [id number] MD 07:58:00 23:59:00 DARIO allredo n 2021-03-29 2021-03-29 Outpatient EL WON, MDA MDA [id number] 08:21:15 16:52:15 DARIO allredo n 2021-03-29 2021-03-29 Outpatient EL ON LICENSE OF [facility] MDA MDA [id number] 08:21:35 09:23:12 Juan Jose BARRERA n 2021-03-29 2021-03-29 Outpatient EL WON, MDA MDA [id number] 07:55:54 07:57:00 DARIO allredo n 2021-03-28 2021-03-28 Outpatient EL WON, MDA MDA [id number] 10:07:12 23:59:00 DARIO allredo jody 2021-03-12 2021-03-12 Outpatient [place], MDA MDA [id number] 13:06:08 23:59:00 COLTON vera 2021-03-12 2021-03-12 Outpatient [place], MDA MDA [id number] 08:33:03 13:05:00 COLTON vera 2021-03-12 2021-03-[address] [facility] MDA MDA [id number] 11:05:56 11:05:56 Juan Jose BARRERA 2021-03-12 2021-03-12 Outpatient EL FABIOLA, MDA MDA [id number] 09:04:34 10:54:30 JAY vera 2021-03-05 2021-03-05 Outpatient EL MARIA INES, MDA MDA [id number] 09:44:21 10:56:29 ELSY vera 2021-02-27 2021-02-27 Outpatient EL IBRAHIMA, MDA MDA [id number] 08:10:11 23:59:00 DARIO vera 2021-02-27 2021-02-27 Outpatient EL IBRAHIMA, MDA MDA [id number] 08:09:14 08:09:14 DARIO vera 2021-02-26 2021-02-[address] [facility] MDA MDA [id number] 09:29:45 09:44:12 Juan Jose BARRERA 2021-02-06 2021-02-06 Outpatient EL ILA, RUN MDA MDA [id number] 07:51:21 11:24:23 Juan Jose vera 2020-12-11 2020-12-11 Outpatient BLANCA, MDA MDA [id number] 13:49:23 23:59:00 GT vera 2020-12-11 2020-12-[address] [facility] MDA MDA [id number] 14:10:47 14:10:47 Juan Jose BARRERA 2020-11-28 2020-11-28 Outpatient EL KARINA, MDA MDA [id number] 16:13:03 23:59:00 RAMU evra 2020-11-28 2020-11-[address] [facility] MDA MDA [id number] 12:57:42 16:12:00 Juan Jose BARRERA 2020-11-28 2020-11-28 Outpatient EL CARLOS-LU, MDA MDA [id number] 09:30:00 12:56:00 CRYSTAL vera 2020-11-28 2020-11-28 Outpatient [facility], MDA MDA [id number] 12:12:40 12:12:40 CRYSTAL vera 2020-11-21 2020-11-[address] [facility] MDA MDA [id number] 12:08:32 07:15:12 Juan Jose BARRERA 2020-11-21 2020-11-[address] [facility] MDA MDA [id number] 11:31:43 23:59:00 Juan Jose BARRERA 2020-11-14 2020-11-[address] [facility] MDA MDA [id number] 10:56:40 23:59:00 Juan Jose BARRERA 2020-11-14 2020-11-[address] [facility] MDA MDA [id number] 08:32:23 10:55:00 Juan Jose BARRERA 2020-11-14 2020-11-14 Outpatient [facility], MDA MDA [id number] 08:00:00 08:31:00 GT vera 2020-11-14 2020-11-14 [facility] [id number] 08:19:22 08:19:22 GT vera 2020-11-07 2020-11-[address] [facility] MDA MDA [id number] 11:30:58 07:07:41 Juan Jose BARRERA 2020-10-31 2020-10-[address] [facility] MDA MDA [id number] 12:28:14 23:59:00 Juan Jose BARRERA 2020-10-31 2020-10-[address] [facility] MDA MDA [id number] 09:54:52 12:27:00 Juan Jose BARRERA 2020-10-30 2020-10-30 Outpatient RIOS, MDA MDA [id number] 13:47:12 23:59:00 GT vera 2020-10-30 2020-10-[address] [facility] MDA MDA [id number] 13:17:15 13:52:00 Juan Jose BARRERA 2020-10-30 2020-10-30 Outpatient KESHIA RIOS, MDA MDA [id number] 11:50:14 13:46:00 GT vera 2020-10-23 2020-10-[address] [facility] MDA MDA [id number] 07:20:00 23:59:00 Juan Jose BARRERA 2020-10-16 2020-10-[address] [facility] MDA MDA [id number] 10:59:31 23:59:00 Juan Jose BARRERA 2020-10-16 2020-10-16 Outpatient MACIE, MDA MDA [id number] 06:00:00 10:58:00 KYLIE vera 2020-10-16 2020-10-16 Outpatient MACIE, MDA MDA [id number] 10:43:13 10:43:13 KYLIE vera 2020-10-09 2020-10-[address] [facility] MDA MDA [id number] 11:38:59 11:38:59 Juan Jose BARRERA 2020-10-02 2020-10-02 Outpatient KESHIA RIOS, MDA MDA [id number] 10:56:16 23:59:00 GT vera 2020-10-02 2020-10-02 Outpatient LEOPOLDO DEL REAL MDA MDA [id number] 06:00:00 10:55:00 Juan Jose vera 2020-10-02 2020-10-02 Outpatient EL JULIETA LEOPOLDO MDA MDA [id number] 10:39:47 10:39:47 Juan Jose vera 2020-09-25 2020-09-[address] [facility] MDA MDA [id number] 10:03:00 23:59:00 Juan Jose BARRERA 2020-09-25 2020-09-[address] [facility] MDA MDA [id number] 09:54:53 10:02:00 Juan Jose BARRERA 2020-09-20 2020-09-20 Outpatient KESHIA MEADE, MDA MDA [id number] 13:00:17 14:29:49 MIKI vera 2020-09-20 2020-09-20 Outpatient AUDREY, MDA MDA [id number] 10:55:56 11:09:47 OLIVERIO vera 2020-09-20 2020-09-20 Outpatient MARIA INES, MDA MDA [id number] 08:38:57 09:30:44 ELSY vera 2020-09-19 2020-09-19 Outpatient RIOS, MDA MDA [id number] 10:38:01 23:59:00 GT vera 2020-09-19 2020-09-19 Outpatient [facility], MDA MDA [id number] 10:26:35 10:37:00 MONICA vera 2020-09-19 2020-09-[address] [facility] MDA MDA [id number] 10:26:59 10:26:59 Juan Jose BARRERA 2020-09-19 2020-09-19 Outpatient [facility], MDA MDA [id number] 07:18:04 08:05:00 SHAHIDA vera 2020-09-18 2020-09-[address] [facility] MDA MDA [id number] 09:24:19 23:59:00 Juan Jose BARRERA 2020-09-18 2020-09-[address] [facility] MDA MDA [id number] 08:37:45 09:23:00 Juan Jose BARRERA 2020-09-14 2020-09-14 Outpatient [facility], MDA MDA [id number] 08:00:00 23:59:00 GT vera 2020-09-14 2020-09-[address] [facility] MDA MDA [id number] 08:37:29 10:32:04 Juan Jose BARRERA 2020-09-10 2020-09-[address] [facility] MDA MDA [id number] 10:20:00 23:59:00 Juan Jose BARRERA 2020-09-06 2020-09-[address] [facility] MDA MDA [id number] 10:12:00 23:59:00 Juan Jose BARRERA 2020-09-06 2020-09-[address] [facility] MDA MDA [id number] 08:52:00 10:11:00 Juan Jose BARRERA 2020-08-31 2020-08-[address] [facility] MDA MDA [id number] 15:42:00 23:59:00 Juan Jose BARRERA 2020-08-30 2020-08-[address] [facility] MDA MDA [id number] 07:49:00 23:59:00 Juan Jose BARRERA 2020-08-29 2020-08-29 Outpatient MARIA INES, MDA Anesth [id number] 10:53:00 17:44:00 ELSY vera 2020-08-28 2020-08-28 Outpatient [facility], MDA MDA [id number] 07:43:48 23:59:00 GT vera 2020-08-28 2020-08-[address] [facility] MDA MDA [id number] 08:55:06 08:55:06 Juan Jose BARRERA 2020-08-28 2020-08-[address] [facility] MDA MDA [id number] 08:21:58 08:21:58 Juan Jose BARRERA 2020-08-28 2020-08-28 Outpatient [facility], MDA MDA [id number] 07:43:26 07:43:26 GT vera 2020-08-23 2020-08-[address] [facility] MDA MDA [id number] 08:32:00 23:59:00 Juan Jose BARRERA 2020-08-23 2020-08-[address] [facility] MDA MDA [id number] 11:18:44 11:53:03 Juan Jose BARRERA 2020-08-232020-08-23 Outpatient BLANCA, MDA MDA [id number] 10:03:14 10:22:01 GT vera 2020-08-23 2020-08-23 Outpatient MARIA INES, MDA MDA [id number] 10:21:43 10:21:43 ELSY vera 2020-08-22 2020-08-22 Outpatient BLANCA, MDA MDA [id number] MD 09:56:20 09:56:28 GT vera 2020-08-22 2020-08-22 Outpatient ON LICENSE OF [facility] MDA MDA [id number] 09:53:45 09:53:52 Juan Jose BARRERA 2020-08-21 2020-08-21 Outpatient DUM[place], MDA MDA [id number] 11:19:11 23:59:00 OTITOLOLA Clemente rso n 2020-08-21 2020-08-[address] [facility] MDA MDA [id number] 14:38:41 15:50:51 Juan Jose BARRERA n 2020-08-21 2020-08-21 Outpatient FABIOLA, MDA MDA [id number] 11:55:59 14:30:41 JAY vera 2020-08-17 2020-08-17 Outpatient [place], MDA MDA [id number] 10:55:19 10:55:19 OTITOLOLA Clemente rso n 2020-08-17 2020-08-17 Outpatient [place], MDA MDA [id number] 08:58:21 08:58:21 OTITOLOLA Clemente rso n 2020-08-16 2020-08-[address] [facility] MDA MDA [id number] 07:57:00 23:59:00 Juan Jose BARRERA 2020-08-13 2020-08-13 Outpatient HALINA, MDA MDA [id number] MD 12:13:40 12:14:46 AMANUEL vera 2020-08-10 2020-08-10 Outpatient D[place]ONT, MDA MDA [id number] 08:58:29 08:58:29 OTITOLOLA Clemente rso n 2020-08-10 2020-08-10 Outpatient JAMAL GARCIA MDA MDA [id number] 08:58:09 08:58:09 Juan Jose vera 2020-08-07 2020-08-[address] [facility] MDA MDA [id number] 14:59:19 14:59:25 Juan Jose BARRERA 2020-08-04 2020-08-04 Outpatient KESHIA DUMONT, MDA MDA [id number] 11:19:00 23:59:00 OTITOLOLA Clemente rso n 2020-07-30 2020-08-04 Inpatient ER SANTANA, MDA COVID-19 [id number] 13:43:00 16:37:00 ANDREA vera 2020-08-03 2020-08-03 Inpatient ESTHER, MDA MDA [id number] MD 15:53:13 16:28:20 ANDREA vera 2020-07-27 2020-07-[address] [facility] MDA MDA [id number] 13:17:39 23:59:00 Juan Jose BARRERA 2020-07-27 2020-07-[address] [facility] MDA MDA [id number] 13:00:00 13:16:00 Juan Jose BARRERA 2020-07-26 2020-07-26 Outpatient KESHIA SPANN, MDA MDA [id number] 13:48:13 14:47:07 ELSY vera 2020-07-23 2020-07-[address] [facility] MDA MDA [id number] 12:06:37 23:59:00 Juan Jose BARRERA 2020-07-23 2020-07-[address] [facility] MDA MDA [id number] 12:41:07 12:41:07 Juan Jose BARRERA 2020-07-23 2020-07-[address] [facility] MDA MDA [id number] 11:07:03 12:05:00 Juan Jose BARRERA 2020-07-23 2020-07-23 Outpatient KESHIA RIOS, MDA MDA [id number] 09:15:00 11:06:00 GT vera 2020-07-23 2020-07-23 Outpatient RIOS, MDA MDA [id number] 10:23:43 10:23:43 GT vera 2020-07-20 2020-07-[address] [facility] MDA MDA [id number] 12:30:00 23:59:00 Juan Jose BARRERA 2020-07-16 2020-07-16 Outpatient [facility], MDA Surgical [id number] 05:22:00 10:04:00 ELSY vera 2020-07-15 2020-07-15 Emergency [facility], MDA Emergency [id number] 11:19:00 16:22:00 STEPHANIE vera 2020-07-14 2020-07-14 Outpatient AQUILES, MDA MDA [id number] 10:25:39 10:58:47 CONG vera 2020-07-13 2020-07-[address] [facility] MDA MDA [id number] 12:07:31 23:59:00 Juan Jose BARRERA 2020-07-10 2020-07-[address] [facility], MDA MDA [id number] 07:10:15 07:10:15 CONG vera 2020-07-09 2020-07-09 [facility] [id number] 08:57:27 23:59:00 GT vera 2020-07-09 2020-07-[address] [facility] MDA MDA [id number] 08:09:26 08:56:00 Juan Jose BARRERA 2020-07-09 2020-07-09 [facility] MDA [id number] 07:48:15 08:08:00 GT vera 2020-07-09 2020-07-09 [facility] MDA [id number] 07:47:55 07:47:55 GT vera 2020-07-06 2020-07-09 Outpatient [facility], MDA MDA [id number] 11:24:27 07:09:37 GT vera 2020-07-06 2020-07-06 Outpatient [facility], MDA MDA [id number] MD 09:54:06 23:59:00 GT vera 2020-07-06 2020-07-[address] [facility] MDA MDA [id number] MD 07:50:53 09:59:31 Juan Jose BARRERA 2020-07-06 2020-07-06 Outpatient RIOS, MDA MDA [id number] 07:00:00 09:53:00 GT vera 2020-07-03 2020-07-03 Outpatient MARIA INES, MDA MDA [id number] 08:44:00 12:03:06 ELSY vera 2020-07-03 2020-07-[address] [facility] MDA MDA [id number] 08:13:52 09:15:16 Juan Jose BARRERA 2020-07-03 2020-07-03 Outpatient MARIA INES, MDA MDA [id number] 00:00:00 00:00:00 ELSY vera [address] [facility] MDA MDA [id number] 10:45:00 23:59:00 Juan Jose BARRERA 2020-06-22 2020-06-22 Outpatient [facility], MDA MDA [id number] 08:37:48 23:59:00 GT vera 2020-06-22 2020-06-22 Outpatient [facility], MDA MDA [id number] 11:21:11 11:21:11 TAMI vera 2020-06-22 2020-06-22 Outpatient ERIKA, MDA MDA [id number] 09:58:40 09:58:40 ROSETTA vera 2020-06-22 2020-06-[address] [facility] MDA MDA [id number] 08:47:52 08:47:52 Juan Jose BARRERA 2020-06-18 2020-06-18 Outpatient EVA , MDA MDA [id number] 13:00:00 23:59:00 ROSAMARIA vera 2020-06-18 2020-06-18 Outpatient [facility], MDA MDA [id number] MD 14:26:14 15:38:22 JAY vera 2020-06-16 2020-06-[address] [facility] MDA MDA [id number] 14:46:58 23:59:00 Juan Jose BARRERA 2020-06-12 2020-06-12 Outpatient [facility], MDA MDA [id number] 08:54:38 23:59:00 JAY vera 2020-06-12 2020-06-12 Outpatient EL MARES, MDA MDA [id number] 08:20:37 08:53:00 CECI vera 2020-06-12 2020-06-12 Outpatient [facility] [facility] [id number] 08:10:52 08:19:00 GT vera 2020-06-12 2020-06-12 [facility] [id number] 08:10:37 08:10:37 GT vera 2020-06-09 2020-06-[address] [facility] MDA MDA [id number] 14:44:21 23:59:00 Juan Jose BARRERA 2020-06-07 2020-06-07 [facility] [id number] 07:14:14 23:59:00 GT vera 2020-06-07 2020-06-07 [facility] MDA [id number] 07:14:02 07:14:02 GT vera 2020-06-04 2020-06-04 [facility] [id number] MD 07:31:45 23:59:00 GT vera 2020-06-04 2020-06-04 [facility] [id number] 07:32:05 07:32:05 GT vera 2020-06-02 2020-06-[address] [facility] MDA MDA [id number] 12:00:00 23:59:00 Juan Jose BARRERA 2020-06-01 2020-06-01 Outpatient [facility], MDA MDA [id number] MD 06:58:28 23:59:00 MICKIE vera 2020-06-01 2020-06-[address] [facility] MDA MDA [id number] 08:43:37 10:49:54 Juan Jose BARRERA 2020-05-25 2020-05-29 Inpatient [facility]Y, MDA Leukemia [id number] 12:32:00 18:12:00 CHRISTOPHER vera 2020-05-27 2020-05-27 Inpatient SANTY, MDA MDA [id number] 18:44:27 18:52:17 CHRISTOPHER vera 2020-05-25 2020-05-25 Outpatient [facility], MDA MDA [id number] 10:00:00 12:31:00 GT vera 2020-05-25 2020-05-[address] [facility] MDA MDA [id number] 07:37:01 10:35:22 Juan Jose BARRERA 2020-05-25 2020-05-25 Outpatient [facility], MDA MDA [id number] 07:04:17 09:59:00 GT vera 2020-05-25 2020-05-25 Outpatient [facility] MDA MDA [id number] 07:03:37 07:03:37 Juan Jose BROWNLEE 2020-05-11 2020-05-11 Outpatient [facility] MDA MDA [id number] 12:45:30 12:45:30 Juan Jose BLACKMON 2020-05-11 2020-05-[address] [facility] MDA MDA [id number] 09:40:52 11:36:10 Juan Jose BARRERA 2020-05-10 2020-05-[address] [facility] MDA MDA [id number] 08:21:22 23:59:00 Juan Jose BARRERA 2020-05-10 2020-05-10 Outpatient [facility], MDA MDA [id number] 06:02:33 08:20:00 BEULAH vera 2020-05-10 2020-05-[address] [facility] MDA MDA [id number] 06:02:52 06:02:52 Juan Jose BARRERA 2020-05-09 2020-05-09 Outpatient [facility] MDA MDA [id number] 08:21:34 10:37:39 Juan Jose BLACKMON 2020-04-06 2020-05-08 Inpatient [facility] MDA Leukemia [id number] 21:24:00 17:31:00 Juan Jose BLACKMON 2020-04-19 2020-04-19 Inpatient [facility] LICENSE OF [facility] MDA MDA [id number] 11:16:15 11:44:17 Juan Jose BARRERA 2020-04-19 2020-04-19 Inpatient [facility] AILYN, MDA MDA [id number] 02:59:33 03:38:36 PRISCILLA vera 2020-04-17 2020-04-17 Inpatient [facility] AILYN, MDA MDA [id number] 08:50:57 08:58:08 PRISCILLA vera 2020-04-10 2020-04-10 Inpatient UR AILYN, MDA MDA [id number] 18:59:47 18:59:50 PRISCILLA vera 2020-04-10 2020-04-10 Inpatient KESHIA RUSSELL, MDA MDA [id number] 18:02:01 18:52:15 BEULAH vera Results This patient has no known results.
--- NOTE | 2023-06-08 17:19 | ER ---
Nurse's Notes [facility] Name: Juan Luis Duvall Age: 52 yrs Sex: Male : 1970 Arrival Date: 06/08/2023 Time: 16:24 Bed IW1 Private MD: Diagnosis: Acute serous otitis media, left ear Presentation: 06/08 17:08 Chief complaint: Left ear pain x 1 week. Coronavirus screen: At this time, the client hb does not indicate any symptoms associated with coronavirus-19. Ebola Screen: No symptoms or risks identified at this time. Initial Sepsis Screen: Does the patient meet any 2 criteria? No. Patient's initial sepsis screen is negative. Does the patient have a suspected source of infection? No. Patient's initial sepsis screen is negative. Risk Assessment: Do you want to hurt yourself or someone else? Patient reports no desire to harm self or others. Onset of symptoms was June 01, 2023. 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 11 in. ; Pain 9/10; 17:08 Body Mass Index 27.89 (90.72 kg, 180.34 cm) hb 17:08 Pain Scale: Adult hb ED Course: 16:30 Patient arrived in ED. 5 16:35 [facility] Flores FNP [facility] 16:35 Srikanth Amor MD is Attending Physician. [facility] 17:10 Triage completed. hb 17:10 Arm band placed on. hb Administered Medications: 17:18 Drug: Ketorolac IM 30 mg IM once Route: IM; Site: right deltoid; hb Outcome: 16:42 Discharge ordered by . [facility] 17:18 Patient left the ED. Signatures: Ericka Layne RN RN Mattie Flores FNP [employer] [facility] Moriah Jauregui mg5
[2023-06-08] MEDS ORDERED: KETOROLAC 30 MG/ML INJ ONE (17:26)
[2023-06-08 18:59] VITALS: BP 135/79; TEMP 99.1; O2SAT 100
== END 2023-06-08 17:18 | disposition home or self-care (01) ==
LOC: ER 16:24
DX: H65.02 Acute serous otitis media, left ear (principal)
CPT/HCPCS: 96372; 99283